=== PATIENT | female | born 2005 | race Caucasian/White ===

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

== ENCOUNTER → 2024-03-16 | Outpatient (CLI) | payer OTHER, SELFPAY ==
[2024-03-16 15:07] LABS: hCG Titer Quant., Serum 43 mIU/mL (1-3)
== END | disposition home or self-care (01) ==
LOC: LAB 14:06
PROVIDERS: PCP Family Medicine; Referring Provider Obstetrics & Gynecology; Visit Provider Obstetrics & Gynecology
DX: O09.299 Supervision of pregnancy with other poor reproductive or obstetric history, unspecified trimester (principal); Z3A.00 Weeks of gestation of pregnancy not specified
CPT/HCPCS: 36415; 84702

== ENCOUNTER → 2024-03-18 | Outpatient (CLI) | payer OTHER, SELFPAY ==
[2024-03-18 15:30] LABS: hCG Titer Quant., Serum 145 mIU/mL (1-3)
== END | disposition home or self-care (01) ==
PROVIDERS: PCP Family Medicine; Referring Provider Obstetrics & Gynecology; Visit Provider Obstetrics & Gynecology
DX: O09.299 Supervision of pregnancy with other poor reproductive or obstetric history, unspecified trimester (principal); Z3A.00 Weeks of gestation of pregnancy not specified
CPT/HCPCS: 36415; 84702

== ENCOUNTER → 2024-03-24 | Outpatient (CLI) | payer OTHER, SELFPAY ==
--- NOTE | 2024-03-24 16:39 | US_ITS ---
INDICATION: viability EXAMINATION: US OB Transvaginal TECHNIQUE: Transvaginal (for optimal evaluation of the adnexa) pelvic ultrasound was performed. Grayscale, spectral waveform, and color flow Doppler evaluation of the adnexa. COMPARISON: None. FINDINGS: UTERUS: Measures 9.6 cm in length.. RIGHT OVARY: Measures 3 x 2.5 x 2.3 cm. Normal. LEFT OVARY: Measures 2.3 x 2.2 x 2.7 cm. Corpus luteal cyst.. FREE FLUID: Minimal. INTRAUTERINE GESTATIONAL SAC(s) (size/shape): Single. Mean sac diameter of 0.5 cm YOLK SAC: Not identified POLE: Not visualized. ESTIMATED GESTATION AGE: 5 weeks and 2 days. US/Transvaginal w/Preg US IMPRESSION: Intrauterine of uncertain viability. There is an intrauterine gestational sac with no yolk sac or embryo. Recommend serial beta hCGs and follow-up OB ultrasound in 1-2 weeks. Electronically Signed: Chuck Taylor MD at 18:20 EDT ,
== END | disposition home or self-care (01) ==
LOC: US 16:34
PROVIDERS: PCP Family Medicine; Referring Provider Obstetrics & Gynecology; Visit Provider Obstetrics & Gynecology
DX: O09.299 Supervision of pregnancy with other poor reproductive or obstetric history, unspecified trimester (principal); Z3A.00 Weeks of gestation of pregnancy not specified
CPT/HCPCS: 76817

== ENCOUNTER → 2024-04-02 | Outpatient (CLI) | payer OTHER, SELFPAY ==
--- NOTE | 2024-04-02 15:26 | US_ITS ---
STUDY: FIRST TRIMESTER OBSTETRICAL ULTRASOUND REASON FOR EXAM: Female, 18 years old viability LMP: TECHNIQUE: Transvaginal TECHNICAL QUALITY: Adequate. PRIOR ULTRASOUND: None. FINDINGS: There is visualization of a single gestational sac in a normal intrauterine position. The mean sac diameter (MSD) measures 1.66 cm, indicating an estimated gestational age (EGA) of 6 weeks, 6 days. The gestational sac shape is within normal limits. There is a visualized yolk sac. The yolk sac measures 3 mm. The placenta is non-visualized. pole is observed.. The crown-rump length (CRL) measures 3 mm, indicating an estimated gestational age (EGA) of 6 weeks, 1 days. According to the technologist note, there is cardiac motion observed in demonstrated with color however the actual cardiac rate could not be obtained. The estimated gestation age (EGA) by LMP is 6 weeks, 6 days. The estimated date of delivery (THOMAS) by LMP is November 20, 2024. The estimated gestation age (EGA) by US is 6 weeks, 6 days. The estimated date of delivery (THOMAS) by US is November 20, 2024. The uterus measures 8.4 x 6.1 x 5.4 cm. There is a very small hypoechoic density seen 10 x 5 x 3 mm possibly representing small subchorionic bleed There is no demonstrated uterine fibroid. The cervix is closed. The right ovary measures 2.2 x 1.9 x 1.7. There is no cystic nodule.. There is no visualized right adnexal mass or complex lesion. The left ovary measures 3.6 x 3.7 x 3.6 cm. There is a cyst measuring 2.9 x 2.5 x 2.1 cm likely corpus luteum. There is no visualized left adnexal mass or complex lesion. There is minimal fluid in the cul de sac. US/Transvaginal w/Preg US IMPRESSION: Early probable viable intrauterine gestation approximately 6 weeks 6 days gestational age however cardiac rate could not be ascertained. Recommend clinical correlation and follow-up studies to confirm viability Small left ovarian cyst likely corpus luteum Electronically Signed: Yoel Trotter MD at 17:11 EDT ,
== END | disposition home or self-care (01) ==
LOC: US 15:23
PROVIDERS: PCP Family Medicine; Referring Provider Obstetrics & Gynecology; Visit Provider Obstetrics & Gynecology
DX: O09.299 Supervision of pregnancy with other poor reproductive or obstetric history, unspecified trimester (principal); Z3A.00 Weeks of gestation of pregnancy not specified
CPT/HCPCS: 76817

== ENCOUNTER → 2024-04-12 | Outpatient (CLI) | payer OTHER, SELFPAY ==
[2024-04-15 06:11] LABS: Chlamydia By Nucleic Acid AMP Negative (Negative); Gonococcus By Nucleic Acid AMP Negative (Negative)
== END | disposition home or self-care (01) ==
LOC: LABSPEC 13:55
PROVIDERS: PCP Family Medicine; Referring Provider Obstetrics & Gynecology; Visit Provider Obstetrics & Gynecology
DX: O24.013 Pre-existing type 1 diabetes mellitus, in pregnancy, third trimester (principal); Z3A.30 30 weeks gestation of pregnancy
CPT/HCPCS: 87086; 87491; 87591

== ENCOUNTER 2024-07-11 15:41 | Emergency (ER) | payer OTHER, SELFPAY ==
[2024-07-11 15:42] VITALS: BP 105/81; PULSE 83; RESP 16; TEMP 36.6; O2SAT 98; BMI 19.8
[2024-07-11 15:59] VITALS: BP 110/74; PULSE 90; RESP 15; O2SAT 98
--- NOTE | 2024-07-11 16:05 | RAD_ITS ---
EXAM: XR LEFT FOOT COMPLETE, 3 OR MORE VIEWS CLINICAL INDICATION: Injury/Pain -- Shield abdomen, positive TECHNIQUE: Frontal, lateral and oblique views of the left foot. COMPARISON: No relevant prior studies available. FINDINGS: BONES/JOINTS: Unremarkable. No acute fracture. No subluxation. Normal alignment. Preservation of the joint space. No sclerotic or destructive changes observed. SOFT TISSUES: Unremarkable. No soft tissue swelling or gas. No radiopaque foreign body. RAD/Foot min 3 Views IMPRESSION: Negative left foot x-rays. Electronically Signed: Jose Montague MD at 17:05 EDT ,
--- NOTE | 2024-07-11 16:05 | ED.VIS.LOWEX ---
HPI History of Present Illness HPI Narrative: Patient presents with injury to her left great toe that occurred 2 days ago. Patient states she accidentally followed something with her left great toe. Patient states the pain has been getting progressively worse. Patient describes the pain as sharp and stabbing. Patient states the pain is worse when anything touches her toe. Patient admits to some tingling over the plantar aspect of her great toe. Patient denies any weakness. Patient denies any other injuries. Chief Complaint: Lower Extremity Injury Informant: patient Occured/Mechanism Mechanism/Context: Yes blunt trauma Onset/Context/Timing Onset: Days (2) Context: Sudden Onset Timing: Continuous Quality of Pain: Sharp and Stabbing Location: Left great toe Worsened by: Palpation Relieved by: Nothing Associated Symptoms Associated Symptoms: Positive for Parasthesia; Negative for Weakness or Loss of Funtion [facility] Medical History Diabetes type I Seasonal allergies Seizure Breast abscess Lump of breast Mastitis Breech presentation Premature rupture of membranes Toxoplasmosis affecting Positive GBS test Supervision of normal first teen POTS (postural orthostatic tachycardia syndrome) Home Medications ?Medication ?Instructions ?Recorded ?Last Taken ?Type PNV 153-FA 400 mcg-om3 35 mg-dha tab PO 04/09/24 Unknown History 25 mg-epa 5 mg-fish oil chew tablet ferrous sulfate 325 mg (65 mg 325 mg PO DAILY 04/09/24 Unknown History iron) tablet (Feosol) Allergy/AdvReac Type Severity Reaction Status Date / Time amoxicillin Allergy Rash Verified 07/11/24 15:44 coconut Allergy Anaphylaxis Verified 07/11/24 15:44 dexmethylphenidate Allergy Itching Verified 07/11/24 15:44 hydrocodone Allergy Rash Verified 07/11/24 15:44 latex Allergy skin Verified 07/11/24 15:44 hayes, headaches onion Allergy Shortness Verified 07/11/24 15:44 of breath vancomycin Allergy Rash Verified 07/11/24 15:44 Anesthetics - Amide Type - AdvReac Severe Anaphylaxis Verified 07/11/24 15:44 Select A (anesthesia) Family History Mother POTS (postural orthostatic tachycardia syndrome) Autism Grandmother Breast cancer Thyroid disorder Skin cancer Sister Autism Son Autism Surgical History H/O laparoscopy Status post delivery Social History adopted: Yes household members: significant other, family and children number of children: 1 current occupational status: employed current occupation: [employer] pets and animals: Yes (Avoid litterbox) pets and animals: cat(s) and dog(s) history of recent travel: No sexually active: Yes Smoking Status: Former smoker quit date: 01/12/24 Electronic Cigarette Use: with nicotine alcohol intake: never substance use type: does not use well-balanced diet: daily or most days caffeine: Yes (not while ) Type: tea Number of servings: 1 eating out: rarely or never what type of physical activity do you participate in: none hayden/orthodoxy: None seatbelt use: always do you feel safe at home: Yes additional social history: BF Rogelio- Outboard Technician ROS ROS ED Constitutional Constitutional ED: Denies chills or fever(s) Eyes Eyes: Denies blurry vision or change in vision ENT ENT ED: Denies rhinorrhea or sore throat Cardiovascular Cardiovascular: Denies chest pain or palpitations Respiratory/Chest Respiratory/Chest: Denies cough or dyspnea Gastrointestinal Gastrointestinal: Denies nausea or vomiting Genitourinary Genitourinary ED: Denies dysuria or hematuria Musculoskeletal Musculoskeletal: Denies back pain or neck pain Integumentary Denies abscess or rash Neurologic Neurologic: Denies headache(s) or weakness Allergic/Immunologic Allergic/Immunologic ED: Denies mouth swelling or urticaria EXAM Physical Exam Const Vital Signs: 07/11/24 15:42 07/11/24 15:55 07/11/24 15:59 Temperature 98 F Temperature Source Temporal Pulse Rate 83 90 Respiratory Rate 16 15 Respiratory Effort Normal Respiratory Pattern Normal Blood Pressure 105/81 H 110/74 Blood Pressure Mean 89 86 Pulse Ox 98 98 Oxygen Delivery Method Room Air Room Air Positive well nourished and well developed General Appearance ED: well developed and NAD HEENT Reports moist mucous membranes Neck full ROM Extremity Extremity Narrative: There is tenderness of the distal phalanx of the left great toe. There are some mild edema and erythema but there is no discharge or drainage noted. There is no loosening of the nail plate. There is no obvious deformity noted. Sensation was intact to light touch in all digits. Capillary refill was less than 2 seconds in all digits. Neuro oriented x3, CN's II-XII intact bilaterally, moves all extremities and no sensory deficits noted Sensorium / Orientation: alert Motor Exam: strength 5/5 throughout Psych mental status grossly normal MDM MDM MDM Narrative Medical decision making narrative: Differential diagnosis includes fracture, contusion, sprain. X-rays of the left foot will be obtained to assess for fracture. Lab Data Labs: Laboratory Results - last 24 hr 07/11/24 07/11/24 15:46 16:19 POC Glucose 54 L 82 Radiography Diagnostic Testing: Clinical Impression(s) from Imaging Studies Foot X-Ray 07/11/24 16:05 IMPRESSION: Negative left foot x-rays. Electronically Signed: Jose Montague MD at 17:05 EDT Reading Location ID and State: [facility] / [place] , Service support , X-rays of the left foot were obtained. There are 3 views. On my independent interpretation, there is no acute fracture or dislocation noted. Radiologist also interpreted the x-rays and agrees. Treatment and Re-Evaluation Narrative: Patient was advised of her findings. Patient was given a postop shoe. Patient was instructed to ice and elevate her left foot. Patient was instructed to take Tylenol as needed for pain. Patient understood and was agreeable with the plan. All questions were answered. Discharge Plan Triage Chief Complaint: Lower Extremity Injury ED Provider: Godwin Hutchinson Dx/Rx/DC Orders Clinical Impression: Contusion of great toe, left, Type 1 diabetes, Instructions: ED Finger or Toe Contusion Prescriptions: No Action PNV no.[id number] 400 mcg-35 mg- 25 mg-5 mg tablet,chewable PO ferrous sulfate [Feosol] 325 mg (65 mg iron) tablet 325 mg PO DAILY Primary Care Provider: Milton Toribio Referrals: Milton Toribio DO [Primary Care Provider] - 5-7 Days Print Language: Macedonian Disposition Disposition: Home, Self Care
[2024-07-11 16:07] LABS: Bedside Glucose 54 mg/dL (74-106)
[2024-07-11 16:38] LABS: Bedside Glucose 82 mg/dL (74-106)
[2024-07-11 17:19] VITALS: BP 96/55; PULSE 78; RESP 21; TEMP 36.8; O2SAT 97
[2024-07-11 17:41] LABS: Bedside Glucose 106 mg/dL (74-106)
== END 2024-07-11 17:26 | disposition home or self-care (01) ==
LOC: ED 16:49
PROVIDERS: Emergency Provider Emergency Medicine; PCP Family Medicine; Visit Provider Emergency Medicine
DX: O9A.219 Injury, poisoning and certain other consequences of external causes complicating pregnancy, unspecified trimester (principal); S90.112A Contusion of left great toe without damage to nail, initial encounter; O24.019 Pre-existing type 1 diabetes mellitus, in pregnancy, unspecified trimester; X58.XXXA Exposure to other specified factors, initial encounter; Z87.891 Personal history of nicotine dependence; Z3A.00 Weeks of gestation of pregnancy not specified
CPT/HCPCS: 73630; 82962; 99284

== ENCOUNTER 2024-08-01 08:45 | Outpatient (CLI) | payer OTHER, SELFPAY ==
[2024-08-01 09:02] VITALS: BP 109/74; PULSE 81; PULSE 87; RESP 16; TEMP 37; O2SAT 99
[2024-08-01 09:13] VITALS: BMI 20.5
[2024-08-01 09:43] LABS: Bacteria 0 SEEN /hpf (None Seen); Mucous, Urine 0 SEEN /hpf (<or=2+); Red Blood Cells-Urine 0 SEEN /hpf (0-5); White Blood Cells 0 SEEN /hpf (0-5)
[2024-08-01 09:44] LABS: Color, Urine Yellow (Yellow); Glucose, Dipstick Normal (Normal); Ketone-Dipstick Negative (Negative); Leukocyte Esterase-Dipstick 25 /ul (Negative); Nitrite-Dipstick Negative (Negative); Occult Blood-Urine 10 /ul (Negative); Protein-Dipstick Negative (Negative); Urine Bilirubin Dipstick Negative (Negative); Urine Clarity Sl. Cloudy (Clear); Urine Urobilinogen Normal (Normal)
[2024-08-01 09:50] LABS: Amorphous Sediment 1+; Squamous Epithelial Cells - UA 10-25 SEEN /hpf (5-10)
--- NOTE | 2024-08-01 11:15 | OB.TRI.HP_ITS ---
HPI - General General Date of Admission: 08/01/24 Date of Service: 08/01/24 Chief Complaint: cramping HPI Narrative JAMIE VAZQUEZ, is a 19 F who presents cramping and pain back. No bleeding or leaking. Did have intercourse in the last 24 hours. After reviewed EPIC chart patient has had ongoing complaints of back pain and cramping. Is a MFM patient in [place]. Cervical length on 07/30 was 36.6 mm. Growth and fluid normal. Occasional contractions on toco. Doppler normal FHR. Maternal Data Information THOMAS Calculator Estimated Delivery Date Method Current WG Current Estimate 11/20/24 Ultrasound #1 24w 1d Final THOMAS: 11/20/24 Gestational age: 24+1 PFSH [facility] Medical History Diabetes type I Seasonal allergies Seizure Breast abscess Lump of breast Mastitis Breech presentation Premature rupture of membranes Toxoplasmosis affecting Positive GBS test Supervision of normal first teen POTS (postural orthostatic tachycardia syndrome) Home Medications ?Medication ?Instructions ?Recorded ?Last Taken ?Type PNV 153-FA 400 mcg-om3 35 mg-dha 1 tab PO DAILY 04/09/24 Unknown History 25 mg-epa 5 mg-fish oil chew tablet ferrous sulfate 325 mg (65 mg 325 mg PO DAILY 04/09/24 Unknown History iron) tablet (Feosol) Allergy/AdvReac Type Severity Reaction Status Date / Time amoxicillin Allergy Rash Verified 08/01/24 09:13 coconut Allergy Anaphylaxis Verified 08/01/24 09:13 dexmethylphenidate Allergy Itching Verified 08/01/24 09:13 hydrocodone Allergy Rash Verified 08/01/24 09:13 latex Allergy skin Verified 08/01/24 09:13 hayes, headaches onion Allergy Shortness Verified 08/01/24 09:13 of breath vancomycin Allergy Rash Verified 08/01/24 09:13 Anesthetics - Amide Type - AdvReac Severe Anaphylaxis Verified 08/01/24 09:13 Select A (anesthesia) Family History Mother POTS (postural orthostatic tachycardia syndrome) Autism Grandmother Breast cancer Thyroid disorder Skin cancer Sister Autism Son Autism Surgical History H/O laparoscopy Status post delivery Social History adopted: Yes household members: significant other, family and children number of children: 1 current occupational status: employed current occupation: [employer] pets and animals: Yes (Avoid litterbox) pets and animals: cat(s) and dog(s) history of recent travel: No sexually active: Yes Smoking Status: Former smoker quit date: 01/12/24 Electronic Cigarette Use: with nicotine alcohol intake: never substance use type: does not use well-balanced diet: daily or most days caffeine: Yes (not while ) Type: tea Number of servings: 1 eating out: rarely or never what type of physical activity do you participate in: none hayden/scientology: None seatbelt use: always do you feel safe at home: Yes additional social history: BF [employer] Coach History 10 Elective abortions Hx Para 1 Spontaneous abortions 8 Hx # Term Pregnancies Ectopic pregnancies Hx # Pregnancies Multiple births # of living children 1 Past Pregnancies Del. Date Name GA/Weeks Outcome Route Bth Weight Gen Labor Lgth Anesthesia Del Locatn Provider FOB 06/14/22 Kyson 31 live - 3lbs 14oz Male [facility] Landon Nicolas Delivery Date: 06/14/22 Last Updated by: Luz Garsia emergency section 31 wk breech, SROM Visit Details OB Flowsheet Initial Weight: Not Recorded Date -?-?-?-?-?-?-?-?-?-?-?-?- EGA Weight BP Urine Prot -?-?-?-?-?-?-?-?-?-?-?-?- Glucose FHR FuHt Pres Dilation -?-?-?-?-?-?-?-?-?-?-?-?- Effaced St Visit Note 04/12/24 -?-?-?-?-?-?-?-?-?-?-?-?- 8w 2d 57.663 kg 110/75 -?-?-?-?-?-?-?-?-?-?-?-?- 151 -?-?-?-?-?-?-?-?-?-?-?-?- JV- CRL measures 7 weeks 2 days. heart tones present. GS present and normal yolk sac. declines NIPT. will refer to [facility] for delivery and management due to multple medical problems including rare heart condition. Physical Exam Const alert, oriented x3 and no apparent distress General Appearance: cooperative and comfortable HEENT normocephalic and head/scalp atraumatic Eyes PERRL and EOMs intact bilaterally Resp normal respiratory effort Bimanual Exam - Vag & Uterus: Negative for uterus tender Manual OB Exam: No dilated, No effaced, No station and other closed think hi firm Extremity normal to inspection Neuro oriented x3 Assessment & Plan (1) Hx of delivery, currently : (2) 24 weeks gestation of : (3) Low back pain during : QUALIFIERS: Trimester: second trimester Qualified Code(s): O26.892 - Other specified related conditions, second trimester; M54.50 - Low back pain, unspecified PLAN: Plan normal urine, cervix closed. Encouraged to f/u with primary OB
== END 2024-08-01 11:20 | disposition home or self-care (01) ==
LOC: WPOUT 08:53 → WP 08:53
PROVIDERS: PCP Family Medicine; Visit Provider Obstetrics & Gynecology
DX: O99.891 Other specified diseases and conditions complicating pregnancy (principal); R25.2 Cramp and spasm; Z87.891 Personal history of nicotine dependence; Z3A.24 24 weeks gestation of pregnancy
CPT/HCPCS: 59025; 59050; 81001; 99221; G0378

== ENCOUNTER 2024-09-12 16:20 | Outpatient (CLI) | payer OTHER, SELFPAY ==
[2024-09-12 17:07] VITALS: BP 99/61; PULSE 96; RESP 14; TEMP 36.7; O2SAT 97
[2024-09-12 17:16] VITALS: BMI 21.6
--- NOTE | 2024-09-12 17:29 | EKG12_ITS ---
Test Reason : CP Blood Pressure : */* mmHG Vent. Rate : 85 BPM Atrial Rate : 85 BPM P-R Int : 124 ms QRS Dur : 100 ms QT Int : 366 ms P-R-T Axes : 55 21 31 degrees QTcB Int : 435 ms Normal sinus rhythm RSR' or QR pattern in V1 suggests right ventricular conduction delay Borderline ECG When compared with ECG of 09-Jun-2023 00:44, No significant change was found Confirmed by Jesus Manuel Self ([id number]), editor at large KELLEY SEYMOUR ([id number]) on 09/14/2024 9:26:48 AM Referred By: Akiko Bowling Confirmed By: Jesus Manuel Self
[2024-09-12 17:31] LABS: Fetal Fibronectin Negative; Record Kit Lot#, fFN A4033
--- NOTE | 2024-09-18 07:07 | OB.TRI.NOTE ---
HPI - General General Date of Service: 09/12/24 HPI Narrative JAMIE VAZQUEZ, is a 19 F who presents at 30w1d with complaints of contractions. [facility] Medical History (Updated 09/14/24 @ 08:50 by Kristi Guadarrama, SCOTT) Low back pain during Diabetes type I Seasonal allergies Seizure Breast abscess Lump of breast Mastitis Breech presentation Premature rupture of membranes Toxoplasmosis affecting Positive GBS test Supervision of normal first teen POTS (postural orthostatic tachycardia syndrome) Home Medications ?Medication ?Instructions ?Recorded ?Last Taken ?Type PNV 153-FA 400 mcg-om3 35 mg-dha 1 tab PO DAILY 04/09/24 Unknown History 25 mg-epa 5 mg-fish oil chew tablet ferrous sulfate 325 mg (65 mg 325 mg PO DAILY 04/09/24 Unknown History iron) tablet (Feosol) Allergy/AdvReac Type Severity Reaction Status Date / Time amoxicillin Allergy Rash Verified 09/12/24 20:16 coconut Allergy Anaphylaxis Verified 09/12/24 20:16 dexmethylphenidate Allergy Itching Verified 09/12/24 20:16 hydrocodone Allergy Rash Verified 09/12/24 20:16 latex Allergy skin Verified 09/12/24 20:16 hayes, headaches onion Allergy Shortness Verified 09/12/24 20:16 of breath vancomycin Allergy Rash Verified 09/12/24 20:16 Anesthetics - Amide Type - AdvReac Severe Anaphylaxis Verified 09/12/24 20:16 Select A (anesthesia) Family History Mother POTS (postural orthostatic tachycardia syndrome) Autism Grandmother Breast cancer Thyroid disorder Skin cancer Sister Autism Son Autism Surgical History H/O laparoscopy Status post delivery Social History adopted: Yes household members: significant other, family and children number of children: 1 current occupational status: employed current occupation: [employer] pets and animals: Yes (Avoid litterbox) pets and animals: cat(s) and dog(s) history of recent travel: No sexually active: Yes Smoking Status: Former smoker quit date: 01/12/24 Electronic Cigarette Use: with nicotine alcohol intake: never substance use type: does not use well-balanced diet: daily or most days caffeine: Yes (not while ) Type: tea Number of servings: 1 eating out: rarely or never what type of physical activity do you participate in: none hayden/advent: None seatbelt use: always do you feel safe at home: Yes additional social history: BF Rogeilo- Seed Analysis 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 Date Name GA/Weeks Outcome Route Bth Weight Infant Gen Labor Lgth Anesthesia Del Locatn Provider FOB 06/14/22 Alice 31 live - 3lbs 14oz Male [facility] Landon Nicolas Delivery Date: 06/14/22 Last Updated by: Luz Garsia emergency section 31 wk breech, SROM NST FHR Rate Baby A Baseline: 130 Variability:: Moderate Accelerations:: 15 x 15 Decelerations:: Variable NST Reactive:: Yes Uterine Activity:: Irritability Assessment & Plan (1) Hx of section: (2) Seizure disorder: (3) Type 1 diabetes: COMMENT: unsure this is correct. pt states that since she was 8 years old she was given the diagnosis of type 1 dm but does not take insulin. pt unabl to answer questions. ddx; type 2 dm or diabetes insipidus. She will sign a ror. (4) Autism: (5) Brugada syndrome: COMMENT: gets q 6 month echos at [facility]. referring to [facility] (6) Former smoker: COMMENT: Quit in January 2024 (7) Cardiomyopathy: PLAN: Plan 1) Uterine irritability, FFN sent and negative, no signs of PTL 2) Having some chest pressure and EKG completed 3) present on unit and asked to evaluate patient, seen at bedside and ok for D/C home 4) For chest pain, to go to ED if continues.
== END 2024-09-12 20:20 | disposition home or self-care (01) ==
LOC: WPOUT 16:28 → WP 16:29
PROVIDERS: PCP Family Medicine; Referring Provider Advanced Practice Midwife; Visit Provider Advanced Practice Midwife
DX: O26.893 Other specified pregnancy related conditions, third trimester (principal); G40.909 Epilepsy, unspecified, not intractable, without status epilepticus; R07.89 Other chest pain; O34.219 Maternal care for unspecified type scar from previous cesarean delivery; O99.353 Diseases of the nervous system complicating pregnancy, third trimester; O24.313 Unspecified pre-existing diabetes mellitus in pregnancy, third trimester; O99.413 Diseases of the circulatory system complicating pregnancy, third trimester; I49.8 Other specified cardiac arrhythmias; Z3A.30 30 weeks gestation of pregnancy; Z87.891 Personal history of nicotine dependence
CPT/HCPCS: 59025; 59050; 82731; 93005; 99221; G0378

== ENCOUNTER 2024-11-29 19:33 | Emergency (ER) | payer OTHER, MEDICAID, SELFPAY ==
[2024-11-29 19:34] VITALS: BP 112/82; PULSE 86; RESP 18; TEMP 36.2; O2SAT 100; BMI 19.9
--- NOTE | 2024-11-29 20:30 | ED.VIS.DENTA ---
HPI History of Present Illness Chief Complaint: Dental Informant: patient and parent Narrative Narrative: 19-year-old female presenting to the emergency room with dental pain and swelling. Patient states that yesterday she began to have some dental pain. She states that now she has developed some swelling over the medial aspect of the tooth that is pushing on her tongue. She has an appointment with her dentist. She notes significant medical history. She is allergic to amoxicillin and vancomycin. [facility] Medical History Low back pain during Diabetes type I Seasonal allergies Seizure Breast abscess Lump of breast Mastitis Breech presentation Premature rupture of membranes Toxoplasmosis affecting Positive GBS test Supervision of normal first teen POTS (postural orthostatic tachycardia syndrome) Home Medications ?Medication ?Instructions ?Recorded ?Last Taken ?Type PNV 153-FA 400 mcg-om3 35 mg-dha 1 tab PO DAILY 04/09/24 Unknown History 25 mg-epa 5 mg-fish oil chew tablet clindamycin HCl 300 mg capsule 300 mg PO Q6H #40 CAPSULES 11/29/24 Unknown Rx (Cleocin HCl) norethindrone (contraceptive) 0.35 0.35 mg PO DAILY 11/29/24 Unknown History mg tablet (Jencycla) oxycodone-acetaminophen 5 mg-325 1 tab PO Q6H PRN PRN Pain 3 days 11/29/24 Unknown Rx mg tablet #12 TABLETS Allergy/AdvReac Type Severity Reaction Status Date / Time amoxicillin Allergy Rash Verified 11/29/24 19:34 coconut Allergy Anaphylaxis Verified 11/29/24 19:34 dexmethylphenidate Allergy Itching Verified 11/29/24 19:34 hydrocodone Allergy Rash Verified 11/29/24 19:34 latex Allergy skin Verified 11/29/24 19:34 hayes, headaches onion Allergy Shortness Verified 11/29/24 19:34 of breath vancomycin Allergy Rash Verified 11/29/24 19:34 Anesthetics - Amide Type - AdvReac Severe Anaphylaxis Verified 11/29/24 19:34 Select A (anesthesia) Family History Mother POTS (postural orthostatic tachycardia syndrome) Autism Grandmother Breast cancer Thyroid disorder Skin cancer Sister Autism Son Autism Surgical History H/O laparoscopy Status post delivery Social History adopted: Yes household members: significant other, family and children number of children: 1 current occupational status: employed current occupation: [employer] pets and animals: Yes (Avoid litterbox) pets and animals: cat(s) and dog(s) history of recent travel: No sexually active: Yes Smoking Status: Former smoker quit date: 01/12/24 Electronic Cigarette Use: with nicotine alcohol intake: never substance use type: does not use well-balanced diet: daily or most days caffeine: Yes (not while ) Type: tea Number of servings: 1 eating out: rarely or never what type of physical activity do you participate in: none hayden/rastafarian: None seatbelt use: always do you feel safe at home: Yes additional social history: BF Rogelio- Autism Teacher ROS ROS ED Constitutional Constitutional ED: Denies chills, fever(s) or weight loss Eyes Eyes: Denies change in vision or diplopia ENT ENT ED: Reports other Details: See history of present illness ; Denies ear pain, rhinorrhea or sore throat Cardiovascular Cardiovascular: Denies chest pain, orthopnea, palpitations or racing heartbeat Respiratory/Chest Respiratory/Chest: Denies cough, dyspnea or orthopnea Gastrointestinal Gastrointestinal: Denies abdominal pain, diarrhea, nausea or vomiting Genitourinary Genitourinary ED: Denies dysuria, hematuria or urinary frequency Musculoskeletal Musculoskeletal: Denies arthralgias or myalgias Integumentary Denies abscess or rash Neurologic Neurologic: Denies headache(s) or weakness Psychiatric Psychiatric: Denies anxiety, depression, suicidal ideation or suicidal thoughts Endocrine Endocrinology: Denies polydipsia, polyphagia or polyuria Allergic/Immunologic Allergic/Immunologic ED: Denies mouth swelling, tongue swelling or urticaria EXAM Physical Exam Const Vital Signs: 11/29/24 19:34 Temperature 97.1 F L Temperature Source Temporal Pulse Rate 86 Respiratory Rate 18 Blood Pressure 112/82 H Blood Pressure Mean 92 Pulse Ox 100 Oxygen Delivery Method Room Air Positive well nourished and well developed General Appearance ED: well developed and NAD HEENT Reports normocephalic, head/scalp atraumatic and moist mucous membranes HEENT Narrative: The right lower posterior most molar is significantly decayed with loss of the back half of the tooth. There is focal gum swelling medially that is pointing. The floor the mouth however is soft and nonedematous. Eyes PERRL and EOMs intact bilaterally Neck no lymphadenopathy, supple and no JVD Resp normal respiratory effort and clear to auscultation bilaterally Cardio regular rate, regular rhythm and no murmurs GI normal to inspection, nondistended, normoactive bowel sounds and non-tender Palpation: soft Back/Spine no CVA tenderness and normal ROM Extremity normal to inspection General Extremety ED: Negative for edema General Extremity: Negative for edema Neuro oriented x3 and CN's II-XII intact bilaterally Sensorium / Orientation: alert Motor Exam: strength 5/5 throughout Psych mental status grossly normal Mood & Affect: Negative for depressed or tearful Skin no rashes or lesions noted and no wounds MDM MDM MDM Narrative Medical decision making narrative: Differential diagnosis includes but not limited to dental abscess Hernandez's angina dental caries gingivitis Patient is going to need to be started on clindamycin. We talked about performing incision and drainage. A 25-gauge needle was used to make a quick slit in the gumline with expression of a large amount of pus. We are able to fully express the abscess and when I last viewed it it was flattened to the gumline. Patient is still spitting some minimal blood and pus. I can write for a few Percocet. I would recommend following up with the dentist tomorrow. Return if worsening or concerns History & Record Review Discussion w/independent historian: Patient and Family Discharge Plan Triage Chief Complaint: Dental ED Provider: Wagner Frias Dx/Rx/DC Orders Clinical Impression: Abscess, dental, Pain, dental Instructions: ED Dental Abscess Prescriptions: New clindamycin HCl [Cleocin HCl] 300 mg capsule 300 mg PO Q6H Qty: 40 0RF oxycodone-acetaminophen 5-325 mg tablet 1 tab PO Q6H PRN PRN (Reason: Pain) 3 Days Qty: 12 0RF No Action PNV no.[id number] 400 mcg-35 mg- 25 mg-5 mg tablet,chewable 1 tab PO DAILY norethindrone (contraceptive) [Jencycla] 0.35 mg tablet 0.35 mg PO DAILY Primary Care Provider: Milton Toribio Referrals: Milton Toribio, [Primary Care Provider] - Activity Restrictions/Additional Instructions: Please follow-up with your dentist as scheduled tomorrow Print Language: Welsh Disposition Disposition: Home, Self Care
== END 2024-11-29 21:13 | disposition home or self-care (01) ==
PROVIDERS: Emergency Provider Emergency Medicine; PCP Family Medicine; Visit Provider Emergency Medicine
DX: K04.7 Periapical abscess without sinus (principal); E10.9 Type 1 diabetes mellitus without complications; K02.9 Dental caries, unspecified; K08.89 Other specified disorders of teeth and supporting structures; Z88.0 Allergy status to penicillin; Z88.1 Allergy status to other antibiotic agents; Z87.891 Personal history of nicotine dependence
CPT/HCPCS: 41800; 99282

== ENCOUNTER 2025-02-10 23:28 | Emergency (ER) | payer OTHER, MEDICAID, SELFPAY ==
--- NOTE | 2025-02-10 00:30 | RAD_ITS ---
EXAM: Foot minimum three views CLINICAL HISTORY: Pain COMPARISON: None available TECHNIQUE: Three views left foot FINDINGS: Acute nondisplaced intra-articular small fracture at the medial side of the 1st proximal phalanx at the metacarpophalangeal joint without significant displacement. No dislocation. Mild forefoot soft tissue swelling. RAD/Foot min 3 Views IMPRESSION: Acute nondisplaced intra-articular small fracture at the medial side of the 1st proximal phalanx at the metacarpophalangeal joint without significant displacement. No dislocation. Reading Location: [id number]
[2025-02-10 23:29] VITALS: BP 107/69; PULSE 99; RESP 18; TEMP 36.4; O2SAT 99; BMI 17.3
--- NOTE | 2025-02-11 00:27 | EDS_ITS ---
HPI History of Present Illness Chief Complaint: Lower Extremity Injury Informant: patient Narrative Narrative: Patient is a 19-year-old female with past medical history of POTS and diabetes. She states around 8 PM she was at [employer] and she was warming up doing a tumbling routine and struck her left foot against a brick wall. She states she was simply in socks and did not have shoes on brain type of protection. She states she was able to finish out [employer] but has noticed pain and swelling mainly of the right great toe and with concern for potential foot fracture comes in for evaluation. [facility] Medical History Low back pain during Diabetes type I Seasonal allergies Seizure Breast abscess Lump of breast Mastitis Breech presentation Premature rupture of membranes Toxoplasmosis affecting Positive GBS test Supervision of normal first teen POTS (postural orthostatic tachycardia syndrome) Home Medications ?Medication ?Instructions ?Recorded ?Last Taken ?Type PNV 153-[id number] 400 mcg-om3 35 mg-dha 1 tab PO DAILY pregna ncy 04/09/24 Unknown History 25 mg-epa 5 mg-fish oil chew tablet clindamycin HCl 300 mg capsule 300 mg PO Q6H #40 CAPSU LES 11/29/24 Unknown Rx (Cleocin HCl) norethindrone (contraceptive) 0.35 0.35 mg PO DAILY Unknown History mg tablet (Jencycla) oxycodone-acetaminophen 5 mg-325 1 tab PO Q6H PRN PRN Pain 3 days 11/29/24 Unknown Rx mg tablet #12 TABLETS Allergy/AdvReac Type Severity Reaction Status Date / Time amoxicillin Allergy Rash Verified 02/10/25 23:28 coconut Allergy Anaphylaxis Verified 02/10/25 23:28 dexmethylphenidate Allergy Itching Verified 02/10/25 23:28 hydrocodone Allergy Rash Verified 02/10/25 23:28 latex Allergy skin Verified 02/10/25 23:28 hayes, headaches onion Allergy Shortness Verified 02/10/25 23:28 of breath vancomycin Allergy Rash Verified 02/10/25 23:28 Anesthetics - Amide Type - AdvReac Severe Anaphylaxis Verified 02/10/25 23:28 Select A (anesthesia) Family History Mother POTS (postural orthostatic tachycardia syndrome) Autism Grandmother Breast cancer Thyroid disorder Skin cancer Sister Autism Son Autism Surgical History H/O laparoscopy Status post delivery Social History adopted: Yes household members: significant other, family and children number of children: 1 current occupational status: employed current occupation: [employer] pets and animals: Yes (Avoid litterbox) pets and animals: cat(s) and dog(s) history of recent travel: No sexually active: Yes Smoking Status: Former smoker quit date: 01/12/24 Electronic Cigarette Use: with nicotine alcohol intake: never substance use type: does not use well-balanced diet: daily or most days caffeine: Yes (not while ) Type: tea Number of servings: 1 eating out: rarely or never what type of physical activity do you participate in: none hayden/congregational: None seatbelt use: always do you feel safe at home: Yes additional social history: BF [employer]- 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 ROS ROS ED Constitutional Constitutional ED: Denies chills or fever(s) ENT ENT ED: Denies sore throat Cardiovascular Cardiovascular: Denies chest pain Respiratory/Chest Respiratory/Chest: Denies cough or dyspnea Gastrointestinal Gastrointestinal: Denies abdominal pain, diarrhea, nausea or vomiting Genitourinary Genitourinary ED: Denies dysuria Musculoskeletal Musculoskeletal: Reports other Details: Positive left foot pain Integumentary Reports other Details: Positive left foot bruising and swelling Neurologic Neurologic: Denies headache(s) or paresthesias Hematologic/Lymphatic Hematologic/Lymphatic: Denies easy bleeding or easy bruising EXAM Physical Exam Const Vital Signs: 02/10/25 23:29 02/11/25 01:33 Temperature 97.6 F L 97.6 F L Temperature Source Oral Pulse Rate 99 87 Respiratory Rate 18 18 Blood Pressure 107/69 110/68 Blood Pressure Mean 81 82 Pulse Ox 99 99 Oxygen Delivery Method Room Air Positive well nourished and well developed General Appearance ED: well developed HEENT HEENT Narrative: Normocephalic atraumatic Eyes PERRL and EOMs intact bilaterally Neck supple Resp normal respiratory effort and clear to auscultation bilaterally Cardio regular rate and regular rhythm Extremity Extremity Narrative: Left lower extremity is neurovascularly intact. Patient has soft tissue swelling with ecchymosis to the dorsal aspect of the left foot at the first MTP. There is no obvious bony deformity or joint effusion. No ligamentous laxity or tendon injury noted. Achilles tendon is intact. Ankle ligaments are stable. No subungual hematoma noted. Remainder of the exam is normal Neuro oriented x3, CN's II-XII intact bilaterally and no sensory deficits noted Sensorium / Orientation: alert Motor Exam: strength 5/5 throughout Psych mental status grossly normal Skin Skin Narrative: Positive soft tissue swelling with ecchymosis to the first MTP on the left foot as documented above MDM MDM MDM Narrative Medical decision making narrative: Patient arrived to the ER with stable vitals. She reported mechanical injury to her left foot roughly 3 to 4 hours prior to arrival. Exam does show swelling and ecchymosis concerning for contusion versus fracture. She does not have signs of ligamentous or tendon injury by exam. There is no obvious signs of subungual hematoma or nailbed laceration. Therefore I felt only need for an x- ray of the left foot at this time. X-ray did show a nondisplaced fracture of the first proximal phalanx. At this time the fracture is closed and she is neurovascularly intact and there are no signs of compartment syndrome therefore there is no need for intervention/emergent podiatry consultation. The patient was placed in a walking boot for stabilization and is otherwise safe for discharge. History & Record Review Discussion w/independent historian: Patient Radiography Diagnostic Testing: Clinical Impression(s) from Imaging Studies Foot X-Ray 02/10/25 00:30 IMPRESSION: Acute nondisplaced intra-articular small fracture at the medial side of the 1st proximal phalanx at the metacarpophalangeal joint without significant displacement. No dislocation. Reading Location: [id number] X-ray of the left foot as interpreted by the emergency medicine physician reveals a small fracture along the medial side of the base of the first proximal phalanx Discharge Plan Triage Chief Complaint: Lower Extremity Injury ED Provider: Matthias Lemos Dx/Rx/DC Orders Clinical Impression: Closed fracture of left great toe, Seizure disorder, Depression, Brugada syndrome Instructions: ED Fracture, Foot Prescriptions: No Action PNV no.[id number] 400 mcg-35 mg- 25 mg-5 mg tablet,chewable 1 tab PO DAILY norethindrone (contraceptive) [Jencycla] 0.35 mg tablet 0.35 mg PO DAILY clindamycin HCl [Cleocin HCl] 300 mg capsule 300 mg PO Q6H Qty: 40 0RF oxycodone-acetaminophen 5-325 mg tablet 1 tab PO Q6H PRN PRN (Reason: Pain) 3 Days Qty: 12 0RF Stand Alone Forms: ED Work / School Excuse Primary Care Provider: Milton Toribio Referrals: Wagner Mendez DPM [Med Staff - Active Staff] - (Foot fracture) Milton Toribio DO [Primary Care Provider] - Activity Restrictions/Additional Instructions: Please wear your walking boot for stabilization of your fracture. Follow-up w [facility] podiatry to discuss further testing or treatment options. Return to the ER should you have any further concerns Print Language: [place] Disposition Disposition: Home, Self Care Discharge Date/Time: 02/11/25 01:34
[2025-02-11 01:33] VITALS: BP 110/68; PULSE 87; RESP 18; TEMP 36.4; O2SAT 99
== END 2025-02-11 01:34 | disposition home or self-care (01) ==
PROVIDERS: Emergency Provider Emergency Medicine; PCP Family Medicine; Visit Provider Emergency Medicine
DX: S92.415A Nondisplaced fracture of proximal phalanx of left great toe, initial encounter for closed fracture (principal); G40.909 Epilepsy, unspecified, not intractable, without status epilepticus; E10.9 Type 1 diabetes mellitus without complications; W22.01XA Walked into wall, initial encounter; Y93.45 Activity, cheerleading; I49.8 Other specified cardiac arrhythmias; G90.A Postural orthostatic tachycardia syndrome [POTS]; F32.A Depression, unspecified; Z87.891 Personal history of nicotine dependence
CPT/HCPCS: 73630; 99283

== ENCOUNTER 2025-03-24 23:52 | Emergency (ER) | payer OTHER, MEDICAID, SELFPAY ==
[2025-03-24 23:53] VITALS: BP 115/82; PULSE 98; RESP 16; TEMP 36.9; O2SAT 98; BMI 18.8
--- NOTE | 2025-03-25 00:55 | RAD_ITS ---
PROCEDURE: FOOT MIN 3 VIEWS 03/25/2025 REASON FOR EXAM: PAIN TECHNIQUE: 3 views of the right foot. FINDINGS: No fracture or dislocation. The joint spaces appear within limits. Soft tissues appear within limits. RAD/Foot min 3 Views IMPRESSION: No fracture or dislocation. Reading Location: [id number]
--- NOTE | 2025-03-25 00:55 | RAD_ITS ---
PROCEDURE: ANKLE MIN 3 VIEWS 03/25/2025 REASON FOR EXAM: PAIN TECHNIQUE: 3 views of the right ankle COMPARISON: None available FINDINGS: No fracture or dislocation. The joint spaces appear within limits. The soft tissues appear within limits. RAD/Ankle min 3 Views IMPRESSION: No fracture or dislocation. If symptoms persist, may follow-up with repeat vaishnavi ging in 7-10 days as warranted. Reading Location: [id number]
--- NOTE | 2025-03-25 01:28 | EX.ED.DYSGE1 ---
HPI History of Present Illness Chief Complaint: Lower Extremity Injury Informant: patient Narrative Narrative: Patient is a 19-year-old female with past medical history of depression and seizure disorder. She states she was at gymnastics this evening and was doing a backhand spring into a full flip and states she was landing in the pit. She states she placed a mat in there to help with the landing. She states as she went to complete the movement with the flip she got scared and shorted of the landing. She states that she landed more on the top of her right foot and this caused her to roll her ankle. She states she has had pain with ambulation since that time. As she was recently seen for a left foot injury and had a fracture she is concerned for that and therefore comes in for evaluation [facility] Medical History Low back pain during Diabetes type I Seasonal allergies Seizure Breast abscess Lump of breast Mastitis Breech presentation Premature rupture of membranes Toxoplasmosis affecting Positive GBS test Supervision of normal first teen POTS (postural orthostatic tachycardia syndrome) Home Medications ?Medication ?Instructions ?Recorded ?Last Taken ?Type norethindrone (contraceptive) 0.35 0.35 mg PO DAILY 11/29/24 Unknown History mg tablet (Jencycla) Allergy/AdvReac Type Severity Reaction Status Date / Time amoxicillin Allergy Rash Verified 03/24/25 23:57 coconut Allergy Anaphylaxis Verified 03/24/25 23:57 dexmethylphenidate Allergy Itching Verified 03/24/25 23:57 hydrocodone Allergy Rash Verified 03/24/25 23:57 latex Allergy skin Verified 03/24/25 23:57 hayes, headaches onion Allergy Shortness Verified 03/24/25 23:57 of breath vancomycin Allergy Rash Verified 03/24/25 23:57 Anesthetics - Amide Type - AdvReac Severe Anaphylaxis Verified 03/24/25 23:57 Select A (anesthesia) Family History Mother POTS (postural orthostatic tachycardia syndrome) Autism Grandmother Breast cancer Thyroid disorder Skin cancer Sister Autism Son Autism Surgical History H/O laparoscopy Status post delivery Social History adopted: Yes household members: significant other, family and children number of children: 1 current occupational status: employed current occupation: [employer] pets and animals: Yes (Avoid litterbox) pets and animals: cat(s) and dog(s) history of recent travel: No sexually active: Yes Smoking Status: Former smoker quit date: 01/12/24 Electronic Cigarette Use: with nicotine alcohol intake: never substance use type: does not use well-balanced diet: daily or most days caffeine: Yes (not while ) Type: tea Number of servings: 1 eating out: rarely or never what type of physical activity do you participate in: none hayden/jainism: None seatbelt use: always do you feel safe at home: Yes additional 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 history: BF [employer]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 ROS ROS ED Constitutional Constitutional ED: Denies chills or fever(s) ENT ENT ED: Denies sore throat Cardiovascular Cardiovascular: Denies chest pain Respiratory/Chest Respiratory/Chest: Denies cough or dyspnea Gastrointestinal Gastrointestinal: Denies abdominal pain, diarrhea, nausea or vomiting Genitourinary Genitourinary ED: Denies dysuria Musculoskeletal Musculoskeletal: Reports other Details: Positive right foot and ankle pain Integumentary Denies Abrasions or rash Neurologic Neurologic: Denies headache(s), paresthesias or weakness Hematologic/Lymphatic Hematologic/Lymphatic: Denies easy bleeding or easy bruising EXAM Physical Exam Const Vital Signs: 03/24/25 23:53 03/25/25 01:36 Temperature 98.5 F 98.5 F Temperature Source Oral Pulse Rate 98 92 Respiratory Rate 16 16 Blood Pressure 115/82 H 115/82 H Blood Pressure Mean 93 93 Pulse Ox 98 98 Oxygen Delivery Method Room Air Positive well nourished and well developed General Appearance ED: well developed; Negative for pallor HEENT HEENT Narrative: Normocephalic atraumatic Eyes PERRL and EOMs intact bilaterally Neck supple Resp normal respiratory effort and clear to auscultation bilaterally Cardio regular rate and regular rhythm Extremity Extremity Narrative: Right lower extremity is neurovascularly intact. No obvious bony deformity or joint effusion. Achilles tendon is intact and ankle ligaments are stable. There is pain with palpation near the lateral malleolus and with palpation of the heel. Compartments are soft and compressible going against compartment syndrome No subungual hematoma noted Remainder of the exam is normal Neuro oriented x3, CN's II-XII intact bilaterally and no sensory deficits noted Sensorium / Orientation: alert Psych mental status grossly normal Skin no rashes or lesions noted and no wounds General Skin Exam: Negative for jaundice or pallor MDM MDM MDM Narrative Medical decision making narrative: Patient arrived to the ER with stable vitals and reported mechanical injury to her right foot/ankle. Differential diagnosis is for ankle sprain versus fracture versus foot contusion. Secondary to this and x-ray of the foot and ankle were obtained. Imaging studies revealed no acute finding. By exam she does not have a ligamentous or tendon tear. Therefore there is no need for emergent orthopedic consultation or splinting. Patient was instructed on symptomatic care but is otherwise safe for discharge as workup does not reveal fracture dislocation ligamentous or tendon injury. History & Record Review Discussion w/independent historian: Patient Radiography Diagnostic Testing: Clinical Impression(s) from Imaging Studies Ankle X-Ray 03/25/25 00:55 IMPRESSION: No fracture or dislocation. If symptoms persist, may follow-up with repeat imaging in 7-10 days as warranted. Reading Location: [facility] Foot X-Ray 03/25/25 00:55 IMPRESSION: No fracture or dislocation. Reading Location: [facility] Right ankle x-ray as interpreted by the emergency medicine physician reveals no acute fracture dislocation or joint effusion Right foot x-ray as interpreted by the emergency medicine physician reveals no acute fracture or dislocation Discharge Plan Triage Chief Complaint: Lower Extremity Injury ED Provider: Matthias Lemos Dx/Rx/DC Orders Clinical Impression: Contusion of foot, right, Right ankle sprain, Depression, Seizure disorder Instructions: ED Foot Contusion, ED Ankle Sprain (Adult) Prescriptions: No Action norethindrone (contraceptive) [Jencycla] 0.35 mg tablet 0.35 mg PO DAILY Primary Care Provider: Milton Toribio Referrals: Milton Toribio DO [Primary Care Provider] - Activity Restrictions/Additional Instructions: Your x-ray revealed no fracture or dislocation and your exam does not display any signs of ligamentous damage. Continue with Tylenol and/or Motrin for pain control and ice the area to help reduce pain and swelling. Return to the ER should you have any further concerns. It would typically take 7 to 10 days for your symptoms to improve. Print Language: Uruguayan Disposition Disposition: Home, Self Care Discharge Date/Time: 03/25/25 01:37
[2025-03-25 01:36] VITALS: BP 115/82; PULSE 92; RESP 16; TEMP 36.9; O2SAT 98
== END 2025-03-25 01:37 | disposition home or self-care (01) ==
PROVIDERS: Emergency Provider Emergency Medicine; PCP Family Medicine; Visit Provider Emergency Medicine
DX: S93.401A Sprain of unspecified ligament of right ankle, initial encounter (principal); G40.909 Epilepsy, unspecified, not intractable, without status epilepticus; E10.9 Type 1 diabetes mellitus without complications; S90.31XA Contusion of right foot, initial encounter; X50.1XXA Overexertion from prolonged static or awkward postures, initial encounter; Y93.43 Activity, gymnastics; F32.A Depression, unspecified; Z87.891 Personal history of nicotine dependence
CPT/HCPCS: 73610; 73630; 99282

== ENCOUNTER 2025-05-10 13:14 | Emergency (ER) | payer OTHER, MEDICAID, SELFPAY ==
[2025-05-10 13:14] VITALS: BP 120/78; PULSE 58; RESP 14; TEMP 36.6; O2SAT 98; BMI 18.6
--- NOTE | 2025-05-10 13:32 | EX.ED.DYSGE1 ---
HPI History of Present Illness Chief Complaint: General Illness Detail of Chief Complaint: Electrical accident at work. Currently no complaints or symptoms. Informant: patient Onset/Context/Timing Onset: Today and Hours Context: Sudden Onset Current Severity: Gone Maximum Severity: Mild Narrative Narrative: 19-year-old female states that she works at [employer]. She was unplugging a mixer and believes she may have got shocked on her right hand. This occurred at 930 this morning about 4 hours ago. Currently she has no complaints. She went to an urgent care they sent her to the emergency department. Currently she is symptom-free. Prior similar symptoms: No Recent Illness/Hospitalization: No PFSH PFSH Medical History Low back pain during Diabetes type I Seasonal allergies Seizure Breast abscess Lump of breast Mastitis Breech presentation Premature rupture of membranes Toxoplasmosis affecting Positive GBS test Supervision of normal first teen POTS (postural orthostatic tachycardia syndrome) Home Medications ?Medication ?Instructions ?Recorded ?Last Taken ?Type norethindrone (contraceptive) 0.35 0.35 mg PO DAILY 11/29/24 Unknown History mg tablet (Jencycla) Allergy/AdvReac Type Severity Reaction Status Date / Time amoxicillin Allergy Rash Verified 05/10/25 13:15 coconut Allergy Anaphylaxis Verified 05/10/25 13:15 dexmethylphenidate Allergy Itching Verified 05/10/25 13:15 hydrocodone Allergy Rash Verified 05/10/25 13:15 latex Allergy skin Verified 05/10/25 13:15 hayes, headaches onion Allergy Shortness Verified 05/10/25 13:15 of breath vancomycin Allergy Rash Verified 05/10/25 13:15 Anesthetics - Amide Type - AdvReac Severe Anaphylaxis Verified 05/10/25 13:15 Select A (anesthesia) Family History Mother POTS (postural orthostatic tachycardia syndrome) Autism Grandmother Breast cancer Thyroid disorder Skin cancer Sister Autism Son Autism Surgical History H/O laparoscopy Status post delivery Social History adopted: Yes household members: significant other, family and children number of children: 1 current occupational status: employed current occupation: [employer] pets and animals: Yes (Avoid litterbox) pets and animals: cat(s) and dog(s) history of recent travel: No sexually active: Yes Smoking Status: Former smoker quit date: 01/12/24 Electronic Cigarette Use: with nicotine alcohol intake: never substance use type: does not use well-balanced diet: daily or most days caffeine: Yes (not while ) Type: tea Number of servings: 1 eating out: rarely or never what type of physical activity do you participate in: none hayden/mormon: None seatbelt use: always do you feel safe at home: Yes additional 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 Denies any complaints currently. Constitutional Constitutional ED: Denies chills or fever(s) Eyes Eyes: Denies blurry vision ENT ENT ED: Denies ear pain Cardiovascular Cardiovascular: Denies chest pain Respiratory/Chest Respiratory/Chest: Denies cough or dyspnea Gastrointestinal Gastrointestinal: Denies abdominal pain Genitourinary Genitourinary ED: Denies dysuria or hematuria Musculoskeletal Musculoskeletal: Denies arthralgias or back pain Integumentary Denies abscess or Abrasions Neurologic Neurologic: Denies headache(s) Psychiatric Psychiatric: Denies anxiety or depression Endocrine Endocrinology: Denies cold intolerance Hematologic/Lymphatic Hematologic/Lymphatic: Reports none Allergic/Immunologic Allergic/Immunologic ED: Denies mouth swelling, tongue swelling or urticaria EXAM Physical Exam Narrative Exam Narrative: Well-appearing 19-year-old female. Vital signs stable afebrile. No acute distress. H EENT exam pupils round reactive light. Moist mucous membranes. Posterior pharynx unremarkable. Neck nontender. No lymphadenopathy. Lungs clear to auscultation. Heart regular rhythm rate about 60 no murmur. Chest wall and ribs nontender. Abdomen soft nontender. Moving all 4 extremities. Nontender no edema. Right hand specifically there is no signs of burn florentin or any trauma. There is no redness. Normal range of motion. No swelling. Other extremities nontender normal range of motion. No edema. Back nontender. Neurologically patient awake alert. Answer questions following commands. Very benign exam. Const Vital Signs: 05/10/25 13:14 Temperature 98 F Temperature Source Temporal Pulse Rate 58 L Respiratory Rate 14 Blood Pressure 120/78 Blood Pressure Mean 92 Pulse Ox 98 Oxygen Delivery Method Room Air Positive well nourished and well developed; Negative for obese, cachectic, contractures or unkempt General Appearance ED: well developed and NAD; Negative for unkempt, cachectic, contractures, cyanotic, diaphoretic or pallor Nutritional Appearance: Negative for cachectic or obese HEENT Reports moist mucous membranes Negative for trauma Eyes PERRL and EOMs intact bilaterally Neck no lymphadenopathy, supple and no JVD General: Negative for tenderness Chest Wall inspection of chest normal and palpation of chest normal Resp normal respiratory effort and clear to auscultation bilaterally Effort and Inspection: Negative for retractions Auscultation: Negative for rales, rhonchi, wheezes or diminished lung sounds Cardio regular rate, regular rhythm, S1 normal heart sound, S2 normal heart sound and no murmurs GI normal to inspection, nondistended, normoactive bowel sounds, non-tender, non-distended and no masses Palpation: soft; Negative for tender, guarding or rebound tenderness present Back/Spine no CVA tenderness General Back: Negative for CVA tenderness Cervical Spine: Negative for cervical spine tenderness Extremity normal to inspection Neuro oriented x3, CN's II-XII intact bilaterally and no sensory deficits noted Sensorium / Orientation: alert; Negative for orientation impaired or lethargic Motor Exam: strength 5/5 throughout Psych mental status grossly normal Appearance: Negative for unkempt Skin no rashes or lesions noted, no wounds and skin turgor normal General Skin Exam: elasticity normal; Negative for jaundice or pallor Lesions: No lesion noted Rashes: No rashes noted Trauma: Negative for abrasion Wounds: Negative for wounds noted Discharge Plan Triage Chief Complaint: General Illness ED Provider: Max Young Dx/Rx/DC Orders Clinical Impression: Electrocution Instructions: ED Electrical Injury Prescriptions: No Action norethindrone (contraceptive) [Jencycla] 0.35 mg tablet 0.35 mg PO DAILY Primary Care Provider: Florentin Toribio Referrals: [facility] [Group of Physicians] - As Needed Florentin Toribio DO [Primary Care Provider] - As Needed Activity Restrictions/Additional Instructions: Motrin or Tylenol for any pain. Follow-up as needed. May return to work with normal work activities. Print Language: Slovenian Disposition Disposition: Home, Self Care
[2025-05-10 14:26] VITALS: BP 120/78; PULSE 58; RESP 14; TEMP 36.6; O2SAT 98
== END 2025-05-10 14:28 | disposition home or self-care (01) ==
PROVIDERS: Emergency Provider Emergency Medicine; PCP Family Medicine; Visit Provider Emergency Medicine
DX: T75.4XXA Electrocution, initial encounter (principal); E10.9 Type 1 diabetes mellitus without complications; W86.1XXA Exposure to industrial wiring, appliances and electrical machinery, initial encounter; Y99.0 Civilian activity done for income or pay; Y92.511 Restaurant or cafe as the place of occurrence of the external cause; Z87.891 Personal history of nicotine dependence
CPT/HCPCS: 99282

== ENCOUNTER 2025-06-25 00:53 | Emergency (ER) | payer OTHER, SELFPAY ==
[2025-06-25 00:54] VITALS: BP 122/80; PULSE 69; RESP 16; TEMP 36.5; O2SAT 99; BMI 19.0
--- NOTE | 2025-06-25 01:26 | EX.ED.DYSGE1 ---
HPI History of Present Illness Chief Complaint: Foreign Body Informant: patient Narrative Narrative: 27-year-old female has had pain in the left ear where her piercings are for about the past 3 weeks. She has 2 piercings and that that she is unable to get out because of pain. No purulent drainage. She feels like one of the piercings, the rubber backing may be stuck within the ear tissue itself. She denies any fevers or systemic symptoms. [facility] Medical History Low back pain during Diabetes type I Seasonal allergies Seizure Breast abscess Lump of breast Mastitis Breech presentation Premature rupture of membranes Toxoplasmosis affecting Positive GBS test Supervision of normal first teen POTS (postural orthostatic tachycardia syndrome) Home Medications ?Medication ?Instructions ?Recorded ?Last Taken ?Type norethindrone (contraceptive) 0.35 0.35 mg PO DAILY 11/29/24 Unknown History mg tablet (Jencycla) mupirocin 2 % topical ointment 1 applic topical BID PRN skin 06/25/25 Unknown Rx infection #15 grams sumatriptan succinate 50 mg tablet mg PO 06/25/25 Unknown History Allergy/AdvReac Type Severity Reaction Status Date / Time amoxicillin Allergy Rash Verified 05/10/25 13:15 coconut Allergy Anaphylaxis Verified 05/10/25 13:15 dexmethylphenidate Allergy Itching Verified 05/10/25 13:15 hydrocodone Allergy Rash Verified 05/10/25 13:15 latex Allergy skin Verified 05/10/25 13:15 hayes, headaches onion Allergy Shortness Verified 05/10/25 13:15 of breath vancomycin Allergy Rash Verified 05/10/25 13:15 Anesthetics - Amide Type - AdvReac Severe Anaphylaxis Verified 05/10/25 13:15 Select A (anesthesia) Family History Mother POTS (postural orthostatic tachycardia syndrome) Autism Grandmother Breast cancer Thyroid disorder Skin cancer Sister Autism Son Autism Surgical History H/O laparoscopy Status post delivery Social History adopted: Yes household members: significant other, family and children number of children: 1 current occupational status: employed current occupation: [employer] pets and animals: Yes (Avoid litterbox) pets and animals: cat(s) and dog(s) history of recent travel: No sexually active: Yes Smoking Status: Former smoker quit date: 01/12/24 Electronic Cigarette Use: with nicotine alcohol intake: never substance use type: does not use well-balanced diet: daily or most days caffeine: Yes (not while ) Type: tea Number of servings: 1 eating out: rarely or never what type of physical activity do you participate in: none hayden/pentecostal: None seatbelt use: always do you feel safe at home: Yes additional social history: BF Rogelio- Program Admin ROS ROS ED Constitutional Constitutional ED: Denies chills or fever(s) ENT ENT ED: Reports ear pain left; Denies abnormal hearing, rhinorrhea or sore throat Gastrointestinal Gastrointestinal: Denies nausea or vomiting Integumentary Reports other Details: Left ear redness where piercings are Neurologic Neurologic: Denies headache(s), paresthesias or weakness EXAM Physical Exam Const Vital Signs: 06/25/25 00:54 06/25/25 00:58 Temperature 97.7 F L Temperature Source Oral Pulse Rate 69 Respiratory Rate 16 Respiratory Effort Normal Non-Labored Respiratory Pattern Normal Blood Pressure 122/80 H Blood Pressure Mean 94 Pulse Ox 99 Oxygen Delivery Method Room Air Positive well nourished and well developed General Appearance ED: well developed and NAD HEENT Reports moist mucous membranes HEENT Narrative: Outer left ear soft tissue redness where there are 2 piercings present, very tender to manipulate there is no fluctuance or mass or active discharge. The backing on the caudal 1 is present patient is unable to remove it just due to the pain, it is easily obtainable and visible. The backing on the cranial 1 is not visible and there is a little more swelling along the shaft of the ear ring in that area. MDM MDM MDM Narrative Medical decision making narrative: I had nurses put a topical LET gel on the piercings to try to at least partially locally anesthetize it. I had discussed with her doing a couple different options, 1 is not injecting anything else and just seeing if the LET would make it easier for us to get the piercings out, the other is injecting lidocaine locally at the piercings, and the other is an ear/periauricular block. On reevaluation after letting the gel sit for 30 minutes, the patient removed her own piercings and states that she got the backing out of the ear using a technique that I had described I was going to use. There is no active discharge just a small amount of blood whenever she dabs it. I do not think she needs systemic antibiotics just topicals, going to have nurses place a dressing on it and clean it and I will give her a prescription for Bactroban. Discharge Plan Triage Chief Complaint: Foreign Body ED Provider: Dajuan Gonzalez Dx/Rx/DC Orders Clinical Impression: Infection of left pierced ear Instructions: ED Pierced Ear Infection Prescriptions: New mupirocin 2 % ointment 1 applic topical BID PRN (Reason: skin infection) Qty: 15 0RF No Action norethindrone (contraceptive) [Jencycla] 0.35 mg tablet 0.35 mg PO DAILY sumatriptan succinate 50 mg tablet PO Primary Care Provider: Milton Toribio Referrals: Milton Toribio, DO [Primary Care Provider] - Activity Restrictions/Additional Instructions: Try to leave piercings out and let this heal. If you choose to put a piercing in to keep the hole from closing, make sure you sterilize it with rubbing alcohol every time and put a light layer of the prescription antibiotic ointment on before insertion, and leave it out at night until healed. Print Language: Kazakh Disposition Disposition: Home, Self Care
[2025-06-25] MEDS: Lidocaine/Epi/Tetracaine 50 ML 1 APPLIC TOPICAL (01:35)
--- OUTSIDE RECORDS SUMMARY | 2025-06-25 01:48 | XMS RPT_ITS | CCD ---
Author Organization [facility] Care Team Providers Care Construction Director Name Role Phone DR CONNOR MARTINI DO Primary Care Physician Dr. Connor Martini Primary Care Provider ADALGISA Wade NP Attending Provider Dr. Connor Martini Referring Provider [phone] Etelvina Calderon Attending Provider [phone] Dr. Marina Valero Attending Provider HAKEEM Mujica Attending Provider Dr. Connor Martini Primary Care Provider Dr. Connor Martini Referring Provider ADALGISA Wade NP Attending Provider Dr. Marina Valero Referring Provider Dr. Marina Valero Other Provider [phone] Dr. Connor Martini Primary Care Provider Dr. Connor Martini Referring Provider Dr. Marina Valero Attending Provider ADALGISA Wade NP Attending Provider [phone] Dr. Connor Martini Primary Care Provider Dr. Connor Martini Referring Provider [phone] Etelvina Calderon Attending Provider [phone] Dr. Etelvina Calderon Admit Provider Dr. Etelvina Calderon Other Provider Dr. Connor Martini Primary Care Provider Viin, Dr. Howe Referring Provider Dr. Marina Valero Attending Provider Vini, Dr. Howe Primary Care Provider Dr. Connor Martini Referring Provider Chester FORENSIC MEDICAL EXAMINER, FORENSIC MEDICAL EXAMINER-C Gi Attending Provider Dr. Marina Valero Attending Provider Dr. Marina Valero Other Provider Connor Martini DO Primary Care Provider Vini, Dr. Howe Primary Care Provider Vini, Dr. Howe Referring Provider [phone] Mauro FORENSIC MEDICAL EXAMINER, FORENSIC MEDICAL EXAMINER-C Gi Attending Provider [phone] MD Amilcar Wiggins Emergency Provider Dr. Wagner Conte Other Provider Dr. Connor Martini Primary Care Provider Dr. Marina Valero Attending Provider Dr. Filippo Vanegas Attending Provider Dr. Etelvina Calderon Referring Provider [phone] Vini, Dr. Howe Primary Care Provider Dr. Connor Martini Referring Provider Mauro FORENSIC MEDICAL EXAMINER, FORENSIC MEDICAL EXAMINER-C Gi Attending Provider [phone] Dr. Etelvina Calderon Attending Provider MD Amilcar Wiggins Emergency Provider Dr. Etelvina Calderon Admit Provider Dr. Etelvina Calderon Other Provider Dr. Wagner Conte Other Provider Dr. Filippo Vanegas Attending Provider Dr. Etelvina Calderon Referring Provider [phone] Dr. Marina Valero Attending Provider [phone] VINI GUO, DR CONNOR Lira Primary Care Physician Vini, Dr. Howe Primary Care Provider [phone] Vini, Dr. Howe Referring Provider [phone] Vini, Dr. Howe Primary Care Provider [phone] Etelvina Calderon Attending Provider [phone] Vini, Dr. Howe Referring Provider [phone] Vini DO, Connor Lira Primary Care Provider [phone] VINI, CONNOR Lira Primary Care Unavailable NAHUN LEACH Attending Unavailable Dr. Florentin Toribio Primary Care Provider [phone] Dr. Florentin Toribio Referring Provider Dr. Etelvina Calderon Attending Provider [phone] Dr. Florentin Toribio Primary Care Provider [phone] Dr. Florentin Toribio Referring Provider Dr. Etelvina Calderon Attending Provider [phone] Vini DO, Connor A Primary Care Provider [phone] Joseys, Connor A Primary Care Provider CHANDRAKANT SOUZA, DR LR Attending Unavailabl e VINI GUO, DR CONNOR Lira Primary Care Unavailable YULIYA SOUZA, DR ELLYN Casey Attending Porter MARTINI DO, DR CONNOR Lira Primary Care Unavailable VINI, CONNOR Primary Care Unavailable RANDAL RIVERA JR Attending Unavailab CONNOR Jones Primary Care Unavailable FAINAAKIKO GREENE Admitting Unavailable AKIKO MEDINA Attending Unavailable CONNOR MARTINI Primary Care Unavailable RADHA BORRERO Referring Unavailable MICAKIKO MIGUEL Attending Unavailable MELVERNEETA Attending Unavailable MELVERNEETA Referring Unavailable MALYS, CONNOR A Primary Care Unavailable RIKA OSORIO Attending Unavailable MALYS, CONNOR A Primary Care Unavailable MALYS, CONNOR A Referring Unavailable VICTORINO ALAMO Attending Unavailable MALYS, CONNOR A Primary Care Unavailable MALYS, CONNOR A Referring Unavailable MALYS, CONNOR A Primary Care Unavailable VICTORINO ALAMO Attending Unavailable REFERRED, SELF Referring Unavailable ETELVINA HAYES Referring Unavailab MARIE Rinaldi Attending Unavailable DOC, MISC Primary Care Unavailable MELVER, NEETA Attending Unavailable MALYS, CONNOR A Primary Care Unavailable MALYS, CONNOR A Referring Unavailable Spaluh RN, Moy Unavailable Unavailable Chantal RN, Moy Unavailable Unavailable MALYS, CONNOR A Primary Care Unavailable RAHEEM VINCENT Attending Unavailable MALYS, CONNOR A Primary Care Unavailable RADHA BORRERO Attending Unavailable MALYS, CONNOR A Primary Care Unavailable CONNOR DODSON Attending Unavailable MALYS, CONNOR A Primary Care Unavailable ALEJANDRINA WALL Referring Unavailable MALYS, CONNOR A Primary Care Unavailable YORK, JOSE A D Attending Unavailable LOU MARIN Attending Unavailable MALYS, CONNOR A Primary Care Unavailable CAMILLA DUNHAM Admitting Unavailable DADA LOCKETT Attending Unavailable Dr. Florentin Toribio DO Primary Care Provider Dr. Wagner Frias DO Attending Provider [phone] Wagner Frias DO Emergency Provider Dr. Matthias Lemos DO Emergency Provider Dr. Matthias Lemos DO Attending Provider Dr. Florentin Toribio DO Primary Care Provider Dr. Max Young MD Emergency Provider MALYS, CONNOR A Primary Care Unavailable MARCH, JOSE A Attending Unavailable MARCH, JOSE A Admitting Unavailable MALYS, CONNOR A Primary Care Unavailable DOLIN, PRAVEEN Admitting Unavailable MALYS, CONNOR A Primary Care Unavailable PURA LOYA Attending Unavailable MALYS, CONNOR A Primary Care Unavailable MONTY RIVERA Attending Unavailable MALYS, CONNOR A Primary Care Unavailable PICCIOTTO, PRITI Attending Unavailable MALYS, CONNOR A Primary Care Unavailable PICCIOTTO, PRITI Attending Unavailable SHANK, ANTHONY Referring Unavailable MALYS, CONNOR A Primary Care Unavailable MALYS, CONNOR A Primary Care Unavailable SHANK, ANTHONY Attending Unavailable MALYS, CONNOR A Primary Care Unavailable SHANK, ANTHONY Attending Unavailable MALYS, CONNOR A Primary Care Unavailable SHANK, ANTHONY Attending Unavailable JANUARY, JOSE A Referring Unavailable MALYS, CONNOR A Primary Care Unavailable MALYS, CONNOR A Primary Care Unavailable HOANG, SCOTT Attending Unavailable MALYS, CONNOR A Primary Care Unavailable WMLYNNETTE Attending Unavailable MALYS, CONNOR A Primary Care Unavailable JANUARY, JOSE A Referring Unavailable MALYS, CONNOR A Primary Care Unavailable SHANK, ANTHONY Attending Unavailable MALYS, CONNOR A Primary Care Unavailable MICCIO, AKIKO Referring Unavailable MALYS, CONNOR A Primary Care Unavailable MALSHE, ASHELY Referring Unavailable MALYS, CONNOR A Primary Care Unavailable PICCIOTTO, PRITI Attending Unavailable MALYS, CONNOR A Primary Care Unavailable MALYS, CONNOR A Primary Care Unavailable ETELVINA MATOS Attending Unavailab le CHE, ETELVINA POWELL Admitting Unavailab le CLIFFORDPKMARIE Admitting Unavailable MALYS, CONNOR A Primary Care Unavailable MILES, PANKAJ Attending Unavailable MALYS, CONNOR A Primary Care Unavailable JANUARY, JOSE A Referring Unavailable MALYS, CONNOR A Primary Care Unavailable MEENU ALVAREZ Attending Unavailable JANUARY, JOSE A Admitting Unavailable MALYS, CONNOR A Primary Care Unavailable MILES, PANKAJ Attending Unavailable MILES, PANKAJ Admitting Unavailable MALYS, CONNOR A Primary Care Unavailable ZUPONCIC, TATIANA Attending Unavailable ZUPONCIC, TATIANA Admitting Unavailable MALYS, CONNOR A Primary Care Unavailable ETELVINA MATOS Attending Unavailab le SAVITSKI, ETELVINA POWELL Admitting Unavailab le MALYS, CONNOR A Primary Care Unavailable JANUARY, JOSE A Attending Unavailable CLIFFORD, MARIE Admitting Unavailable MALYS, CONNOR A Primary Care Unavailable JANUARY, JOSE A Attending Unavailable DEREK, VASHTI M Admitting Unavailable MALYS, CONNOR A Primary Care Unavailable MILDRED PETIT Attending Unavailabl e PETITMILDRED DASILVA Admitting Unavailabl displacement. No dislocation. Mild forefoot soft tissue swelling. RAD/Foot min 3 Views IMPRESSION: Acute nondisplaced intra-articular small fracture at the medial side of the 1st proximal phalanx at the metacarpophalangeal joint without significant displacement. No dislocation. Reading Location: [id number] CC: Dr. Florentin Toribio DO; Matthias Lemos DO Engineering Job Titles: Signed Normal [facility] CNOVon 01-13-2025 CNOV Office Visit (BRCRMN ) -------- ROSY DOMINIQUE ([id number]) 3 F Date Time Provider Department 01/13/25 1:00 PM [facility] During your visit today, we recorded the following information about you: Weight Height Last Period 54.4 kg 1.753 m 12/19/24 Dori Johnson PA-C 01/13/2025 2:26 PM Signed MEDICAL BREAST PATIENT NAME: Rosy Dominique REFERRAL: She is self referred for an opinion regarding right breast pain. HISTORY of PRESENT ILLNESS: Rosy Dominique is a 19 year old premenopausal female who presents to the [facility] today for evaluation of breast pain. The patient denies any breast masses, skin changes, or nipple discharge. She has a history of a right breast surgical IANDD for an abscess in [address] Conte. Since then, she has chronic pain within the region of her prior scar. She was referred to the breast center by Dr. Conte a couple years ago but she became and did not yet follow up. She currently denies any new masses, skin changes, fever/chills. She has regular menstrual cycles with OCP. She consumes 2 cups of iced tea 4 x weekly. No results found for: VITD25 She takes no supplements. BMD: No PERSONAL BREAST HISTORY: Breast biopsy: No Breast cysts: No Breast surgery: 2021 right IANDD for abscess Breast cancer: No CANCER SURVEILLANCE: Mammograms: No Breast MRI: No Colonoscopy: No RISK FACTORS FOR BREAST CANCER: Age at the onset of menses: 12 years of age. P: 2 Age at the of first child: Not stated. She breast fed. Age at menopause: Not applicable. She has an intact uterus and ovaries Patient's last menstrual period was 12/19/2024. She uses OCP for control. History of Mantle Radiation prior to the age of 29: No BMI: Body mass index is 17.72 kg/m?. Current weight 120 lbs Mammographic density: Unknown Personal History of Benign Atypical Breast Biopsy: No Alcohol use: Never PAST MEDICAL HISTORY Diagnosis Date Brugada syndrome Chronic daily headache Complication of anesthesia Diabetes, gestational POTS (postural orthostatic tachycardia syndrome) Seizure (HCC) Thyroid disease Trauma PAST MEDICAL HISTORY: Patient specifically denies history of: DVT, PE, migraine headaches WITH AURA, migraine headaches without aura, abnormal uterine bleeding, abnormal uterine biopsies, osteopenia, and osteoporosis. SOCIAL HISTORY: Social History Tobacco Use Smoking status: Never Passive exposure: Yes Smokeless tobacco: Never Tobacco comments: vape Vaping Use Vaping status: Former Substances: Nicotine Substance Use Topics Alcohol use: No Drug use: Never Caffeine intake: 2 cups of iced tea 4 x weekly Exercise: Never Family History Adopted: Yes Problem Relation Age of Onset None Mother Ovarian cancer Mother 20 Cervical Cancer Mother 20 Autism Mother None Father Autism Sister Autism Brother Blood Clots Maternal Aunt Breast Cancer Maternal Grandmother 48 Skin Cancer Maternal Grandmother Thyroid Maternal Grandmother Skin Cancer Maternal Grandfather Heart Attack Maternal Grandfather Diabetes Paternal Grandfather FAMILY HISTORY: Family history of breast cancer: MGM (age 48) Family history of ovarian cancer: Her mother had cervical and (? ovarian cancer) in her 20's during . She is currently living. This history is unclear/unconfirmed and patient states she was adopted at age 15 but still has touch with her mother and MGM. Number of sisters: 7 Number of maternal aunts: 2 Number of paternal aunts: unknown Ashkenazi Ancestry: no Other Cancer: MGM - skin cancer (age not stated). MGF - skin cancer (age not stated). There is no family history of prostate, colon, uterine, pancreatic, gastric, brain, renal cell or thyroid cancer. There is no family history of melanoma, sarcoma or leukemia. Osteoporosis: None Stroke: MGF (age 50's-60's) Blood Clot: Maternal aunt Heart attack: MGF (age 50's-60's) Thyroid Nodule or Goiter: MGM Autism: Mother and sister REVIEW OF SYSTEMS: The patient specifically denies unintentional weight loss, insomnia, hot flashes, night sweats, abnormal swelling in the arms or legs, chest pain, shortness of breath, persistent cough, heartburn, urinary incontinence, vaginal dryness, decreased libido, or unusual bony pains. PHYSICAL EXAM: Ht 175.3 cm (5' 9) Wt 54.4 kg (120 lb) LMP 12/19/2024 BMI 17.72 kg/m? General: well-nourished, healthy, female, alert and oriented x 3, calm Skin: warm, dry, skin color, texture, turgor normal Head/Eyes: normocephalic, atraumatic, and anicteric Breasts and Regional Lymph Nodes: The patient was examined in the upright and supine positions. There is no concerning supraclavicular, infraclavicular or axillary lymphadenopathy. The breasts are asymmetrical (L > R which (more content not included)... Normal [facility] 01-12-2025 [facility] -------- ROSY DOMINIQUE ([id number]) 3 F Date Time Provider Department 01/12/25 [facility] During your visit today, we recorded the following information about you: Maris Redd MA 01/12/2025 2:57 PM Signed Attempted to reach out to patient regarding her appointment on 01/13/25. She does not have imaging scheduled for tomorrow. I was hoping to get more information about her breast concerns. Left a message for her to call the office back. MULUGETA Mcfarland Cheryl R, MA 01/13/2025 10:42 AM Signed Patient returned my phone call. She is coming to the breast center for breast pain.. In 2021 she had a very bad rt breast abscess and surgery on that area. Since then she has been suffering with rt breast pain. She had a a rt breast US in 07/2023 which showed a stable irregular benign lesion. She has a maternal Aunt who had breast ca in her 40's. Reminded her of date and time. Maris Redd MA Allergies As of Date: 01/12/2025 Noted Allergy Reaction AMOXICILLIN 08/18/2022 2 - Rash 8 - GI Upset 16 - Unknown ANESTHETICS - AMIDE TYPE - SELECT*04/12/2024 14 - Other: See Comments BUPIVACAINE 08/23/2022 12 - Shortness of Breath CHLOROPROCAINE 08/23/2022 12 - Shortness of Breath COCONUT 06/14/2022 10 - Anaphylaxis 16 - Unknown DEXAMETHASONE 12/08/2022 9 - Itching HYDROCODONE 08/18/2022 9 - Itching 16 - Unknown LATEX 12/19/2021 14 - Other: See Comments 16 - Unknown LIDOCAINE 08/23/2022 12 - Shortness of Breath ONION EXTRACT 04/12/2024 14 - Other: See Comments VANCOMYCIN 08/20/2022 2 - Rash 14 - Other: See Comments VICODIN (HYDROCODONE-ACETAMINOPH E*08/18/2022 2 - Rash Date Reviewed: 11/18/2024 Reviewed by: Arpit Arteaga MA - Fully Assessed Reason for Visit: Appointment [[id number]] [employer] Floorperson - Other [[id number]] Prescriptions as of 01/13/2025 - Norethindrone, Contraceptive, 0.35 mg tablet Take 1 tablet by mouth once daily. - gabapentin (NEURONTIN) 300 mg capsule Take 1 capsule by mouth three times a day for 90 days. - vit calc,iron,folic (PRENAT.VITS,ANISH,MIN-IRO N-FOLIC ORAL) Take by mouth once daily. 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*04/07/2024 04/26/2024 Threatened labor, antepartum [O47.00] 04/28/2022 06/24/2024 Seizure (HCC) [R56.9] 07/24/2023 Premature rupture of membranes [O42.90] 08/16/2022 04/26/2024 Palpitations [R00.2] 06/13/2023 05/26/2024 Cardiomyopathy (HCC) [I42.9] 04/07/2024 04/26/2024 Breech presentation [O32.1XX0] 08/16/2022 04/26/2024 Arthralgia of temporomandibular joint [M26.629] 04/30/2023 05/26/2024 Supervision of high risk in third tri*04/07/2024 10/21/2024 History of delivery, currently *04/07/2024 10/21/2024 with uncertain viability [O36.8*04/07/2024 04/26/2024 History of prior with small for gesta*04/07/2024 05/26/2024 History of [Z98.891] 04/07/2024 History of toxoplasmosis [Z86.19] 04/07/2024 05/26/2024 Antepartum diabetes mellitus [O24.919] 04/07/2024 04/26/2024 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] 04/07/2024 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] 04/07/2024 M-Power Referred [O99.891] 04/08/2024 Abdominal pain affecting [O26.899, R1*04/15/2024 09/15/2024 Headache in , second trimester [O26.89*05/24/2024 09/15/2024 Dizziness [R42] 05/24/2024 Hx of impaired glucose tolerance [Z87.898] 05/26/2024 Previous baby with growth restriction [Z8*06/24/2024 POTS (postural orthostatic tachycardia syndrome*06/24/2024 Abdominal cramping [R10.9] 07/01/2024 08/22/2024 Decreased movements in second trimester [*07/28/2024 08/22/2024 Vaginal bleeding in , second trimester*07/29/2024 08/22/2024 Encounter for suspected premature rupture of am*08/17/2024 09/13/2024 27 weeks gestation of [Z3A.27] 08/22/2024 08/31/2024 Pelvic pain affecting [O26.899, R10.2]08/22/2024 10/03/2024 30 weeks gestation of [Z3A.30] 09/13/2024 10/03/2024 History of delivery [Z87.51] 09/14/2024 Vaginal bleeding in , third trimester *09/14/2024 10/03/2024 contractions [O47.00] 09/15/2024 10/03/2024 Prematurity [P07.30] 09/15/2024 10/06/2024 Hx of antibiotic allergy [Z88.1] 09/15/2024 10/21/2024 History of MRSA infection [Z86.14] 09/15/2024 Intact amniotic membranes during in t*09/17/2024 10/21/2024 Bacterial vaginosis in [O23.599, B96.*09/21/2024 10/21/2024 Vaginal bleeding during [O46.90] 09/21/2024 10/03/2024 33 weeks gestation of [Z3A.33] 10/03/2024 10/06/2024 premature rupture of membranes (PPROM) (more content not included)... Normal [facility] CNPCristin 12-07-2024 [facility] Tele[facility] ([facility]) -------- ROSY DOMINIQUE ([id number]) 3 F Date Time Provider Department 12/07/24 ANTHONY COOK During your visit today, we recorded the following information about you: Fe Payan RN 12/07/2024 11:28 AM Signed Forms received from [facility] [employer], information completed and faxed to [phone] with successful transmission Allergies As of Date: 12/07/2024 Noted Allergy Reaction AMOXICILLIN 08/18/2022 2 - Rash 8 - GI Upset 16 - Unknown ANESTHETICS - AMIDE TYPE - SELECT*04/12/2024 14 - Other: See Comments BUPIVACAINE 08/23/2022 12 - Shortness of Breath CHLOROPROCAINE 08/23/2022 12 - Shortness of Breath COCONUT 06/14/2022 10 - Anaphylaxis 16 - Unknown DEXAMETHASONE 12/08/2022 9 - Itching HYDROCODONE 08/18/2022 9 - Itching 16 - Unknown LATEX 12/19/2021 14 - Other: See Comments 16 - Unknown LIDOCAINE 08/23/2022 12 - Shortness of Breath ONION EXTRACT 04/12/2024 14 - Other: See Comments VANCOMYCIN 08/20/2022 2 - Rash 14 - Other: See Comments VICODIN (HYDROCODONE-ACETAMINOPH E*08/18/2022 2 - Rash Date Reviewed: 11/18/2024 Reviewed by: Arpit Arteaga MA - Fully Assessed Reason for Visit: Patient Question [8207] Prescriptions as of 12/07/2024 - Norethindrone, Contraceptive, 0.35 mg tablet Take 1 tablet by mouth once daily. - gabapentin (NEURONTIN) 300 mg capsule Take 1 capsule by mouth three times a day for 90 days. - vit calc,iron,folic (PRENAT.VITS,ANISH,MIN-IRO N-FOLIC ORAL) Take by mouth once daily. 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*04/07/2024 04/26/2024 Threatened labor, antepartum [O47.00] 04/28/2022 06/24/2024 Seizure (HCC) [R56.9] 07/24/2023 Premature rupture of membranes [O42.90] 08/16/2022 04/26/2024 Palpitations [R00.2] 06/13/2023 05/26/2024 Cardiomyopathy (HCC) [I42.9] 04/07/2024 04/26/2024 Breech presentation [O32.1XX0] 08/16/2022 04/26/2024 Arthralgia of temporomandibular joint [M26.629] 04/30/2023 05/26/2024 Supervision of high risk in third tri*04/07/2024 10/21/2024 History of delivery, currently *04/07/2024 10/21/2024 with uncertain viability [O36.8*04/07/2024 04/26/2024 History of prior with small for gesta*04/07/2024 05/26/2024 History of [Z98.891] 04/07/2024 History of toxoplasmosis [Z86.19] 04/07/2024 05/26/2024 Antepartum diabetes mellitus [O24.919] 04/07/2024 04/26/2024 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] 04/07/2024 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] 04/07/2024 M-Power Referred [O99.891] 04/08/2024 Abdominal pain affecting [O26.899, R1*04/15/2024 09/15/2024 Headache in , second trimester [O26.89*05/24/2024 09/15/2024 Dizziness [R42] 05/24/2024 Hx of impaired glucose tolerance [Z87.898] 05/26/2024 Previous baby with growth restriction [Z8*06/24/2024 POTS (postural orthostatic tachycardia syndrome*06/24/2024 Abdominal cramping [R10.9] 07/01/2024 08/22/2024 Decreased movements in second trimester [*07/28/2024 08/22/2024 Vaginal bleeding in , second trimester*07/29/2024 08/22/2024 Encounter for suspected premature rupture of am*08/17/2024 09/13/2024 27 weeks gestation of [Z3A.27] 08/22/2024 08/31/2024 Pelvic pain affecting [O26.899, R10.2]08/22/2024 10/03/2024 30 weeks gestation of [Z3A.30] 09/13/2024 10/03/2024 History of delivery [Z87.51] 09/14/2024 Vaginal bleeding in , third trimester *09/14/2024 10/03/2024 contractions [O47.00] 09/15/2024 10/03/2024 Prematurity [P07.30] 09/15/2024 10/06/2024 Hx of antibiotic allergy [Z88.1] 09/15/2024 10/21/2024 History of MRSA infection [Z86.14] 09/15/2024 Intact amniotic membranes during in t*09/17/2024 10/21/2024 Bacterial vaginosis in [O23.599, B96.*09/21/2024 10/21/2024 Vaginal bleeding during [O46.90] 09/21/2024 10/03/2024 33 weeks gestation of [Z3A.33] 10/03/2024 10/06/2024 premature rupture of membranes (PPROM) *10/03/2024 10/06/2024 state [Z39.2] 10/06/2024 10/21/2024 Rash in adult [R21] 10/08/2024 10/21/2024 Vaginal bleeding [N93.9] 10/08/2024 10/21/2024 Acute bilateral thoracic back pain [M54.6] 10/08/2024 10/21/2024 Mastitis associated with [O91.23] 10/21/2024 state [Z39.2] 11/10/2024 Encounter Status:Closed by FE PAYAN on 12/07/24 [facility] Emergency Department Summary on 11-29-2024 Emergency Department Summary [facility] Medical Records Department [address] [place] [address] Emergency Department Summary 11/29/24 MR#: [id number] Acct: [id number] Name: ROSY DOMINIQUE Rep #: [id number] : 2005 From: Wagner Frias DO PCP: Dr. Florentin Toribio DO Status:DEP ER Location: ED HPI History of Present Illness Chief Complaint: Dental Informant: patient and parent Narrative Narrative: 19-year-old female presenting to the emergency room with dental pain and swelling. Patient states that yesterday she began to have some dental pain. She states that now she has developed some swelling over the medial aspect of the tooth that is pushing on her tongue. She has an appointment with her dentist. She notes significant medical history. She is allergic to amoxicillin and vancomycin. [facility] Medical History Low back pain during Diabetes type I Seasonal allergies Seizure Breast abscess Lump of breast Mastitis Breech presentation Premature rupture of membranes Toxoplasmosis affecting Positive GBS test Supervision of normal first teen POTS (postural orthostatic tachycardia syndrome) Home Medications ???Medication ???Instructions ???Recorded ???Last Taken ???Type PNV 153-FA 400 mcg-om3 35 mg-dha 1 tab PO DAILY 04/09/24 Unknown History 25 mg-epa 5 mg-fish oil chew tablet clindamycin HCl 300 mg capsule 300 mg PO Q6H #40 CAPSULES 11/29/24 Unknown Rx (Cleocin HCl) norethindrone (contraceptive) 0.35 0.35 mg PO DAILY 11/29/24 Unknown History mg tablet (Jencycla) oxycodone-acetaminophen 5 mg-325 1 tab PO Q6H PRN PRN Pain 3 days 11/29/24 Unknown Rx mg tablet #12 TABLETS Allergy/AdvReac Type Severity Reaction Status Date / Time amoxicillin Allergy Rash Verified 11/29/24 19:34 coconut Allergy Anaphylaxis Verified 11/29/24 19:34 dexmethylphenidate Allergy Itching Verified 11/29/24 19:34 hydrocodone Allergy Rash Verified 11/29/24 19:34 latex Allergy skin Verified 11/29/24 19:34 hayes, headaches onion Allergy Shortness Verified 11/29/24 19:34 of breath vancomycin Allergy Rash Verified 11/29/24 19:34 Anesthetics - Amide Type - AdvReac Severe Anaphylaxis Verified 11/29/24 19:34 Select A (anesthesia) Family History Mother POTS (postural orthostatic tachycardia syndrome) Autism Grandmother Breast cancer Thyroid disorder Skin cancer Sister Autism Son Autism Surgical History H/O laparoscopy Status post delivery Social History adopted: Yes household members: significant other, family and children number of children: 1 current occupational status: employed current occupation: [employer] pets and animals: Yes (Avoid litterbox) pets and animals: cat(s) and dog(s) history of recent travel: No sexually active: Yes Smoking Status: Former smoker quit date: 01/12/24 Electronic Cigarette Use: with nicotine alcohol intake: never substance use type: does not use well-balanced diet: daily or most days caffeine: Yes (not while ) Type: tea Number of servings: 1 eating out: rarely or never what type of physical activity do you participate in: none hayden/episcopalian: None seatbelt use: always do you feel safe at home: Yes 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 ROS ROS ED Constitutional Constitutional ED: Denies chills, fever(s) or weight loss Eyes Eyes: Denies change in vision or diplopia ENT ENT ED: Reports other Details: See history of present illness ; Denies ear pain, rhinorrhea or sore throat Cardiovascular Cardiovascular: Denies chest pain, orthopnea, palpitations or racing heartbeat Respiratory/Chest Respiratory/Chest: Denies cough, dyspnea or orthopnea Gastrointestinal Gastrointestinal: Denies abdominal pain, diarrhea, nausea or vomiting Genitourinary Genitourinary ED: Denies dysuria, hematuria or urinary frequency Musculoskeletal Musculoskeletal: Denies arthralgias or myalgias Integumentary Denies abscess or rash Neurologic Neurologic: Denies headache(s) or weakness Psychiatric Psychiatric: Denies anxiety, depression, suicidal ideation or suicidal thoughts Endocrine Endocrinology: Denies polydipsia, polyphagia or polyuria Allergic/Immunologic Allergic/Immunologic ED: Denies mouth swelling, tongue swelling or urticaria EXAM Physical Exam Const Vital Signs: 11/29/24 19:34 Temperature 97.1 F L Temperature Source Temporal Pulse Rate 86 Respiratory Rate 18 Blood Pressure 112/82 H Blood Pressure Mean 92 Pulse Ox 100 Oxygen Delivery Method Room Air (more content not included)... [facility] ) -------- ROSY DOMINIQUE ([id number]) 3 F Date Time Provider Department 10/21/24 11:00 AM LYNNETTE BURK During your visit today, we recorded the following information about you: Pulse Blood pressure Weight 87/minute 110/79 62.1 kg Millicent Lomax MA 10/21/2024 12:45 PM Signed Patient presents for 2 week visit and incision check. Millicent Lomax MA October 21, 2024 11:13 AM Lynnette Burk DO 10/21/2024 12:45 PM Addendum EARLY VISIT Rosy Dmoinique is a 19 year old here for 2 week visit. Delivery Summary: Gary Dominique [[id number]] Delivery Information: Delivery Date: 10/05/24 Delivery type: , Low Transverse Delivering Clinician: Mildred Petit MD : Gender: Female Weight (grams): 1940 g One Minute : 8 Five Minute : 8 ROS: General: Denies any fever or chills Hypertension Screening: Headache? No. Visual Changes? No Epigastric Pain? No Increased Swelling? No Taking any BP medications at home? No If applicable, monitoring BP at home? (If Yes, include results) No Mood: normal Depression: denies symptoms of depression. OB Depression and Anxiety Screening- This Encounter (since 10/20/2024) None Feeding: Pumping; baby in NICU problems: Concern for mastitis as she has redness, pain, and swelling of left breast Bladder: No dysuria, gross hematuria, urinary frequency, urinary urgency, or incontinence Bowel symptoms: Negative for abdominal discomfort, blood in stools or black stools and change in bowel habits Abdomen: She reports no incisional redness, tenderness, erythema Bleeding: spotting Bottom and Perineum: No issues Sleep: no sleep concerns, does not feel rested [place] since delivery: Not resumed Emotional support: Yes Exercise: N/A Other issues: None SENSITIVE EXAM: The sensitive examination was discussed with the Patient or Patient's Authorized Electronic Tester. As applicable, any other physician, advance practice provider, medical student, or other health professional student that will be observing or involved in the sensitive examination for educational or training purposes was discussed with the Patient or Authorized Electronic Tester. The Patient or Authorized Electronic Tester has agreed to proceed with the sensitive examination. (Sensitive examination includes inspection and/or palpation of the breasts, pelvis, prostate and anorectal regions). PHYSICAL EXAMINATION: BP 110/79 Pulse 87 Wt 62.1 kg (137 lb) LMP 02/14/2024 BMI 20.23 kg/m? General: pleasant female in no apparent distress, AANDO x 3. Skin warm and intact. Breast: left breast: area of erythema and warmth without induration at approximately 10-11 o'clock position, tender to palpitation; no abnormal discharge, no lymphadenopathy right breast: soft, non-tender, symmetric, no dominant mass, normal nipple-areolar complex, no lymphadenopathy, and no nipple discharge Abdomen: soft, non-tender, no masses, no hepatosplenomegaly, and no lymphadenopathy /Incision: pfannenstiel incision without redness, swelling, or drainage Pelvic: Deferred Bimanual: Deferred ASSESSMENT AND PLAN: 19 year old status post CS with course complicated by mastitis. Assessment AND Plan state - 2 weeks s/p repeat low transverse section at 33 weeks secondary to suspicious testing in the setting of PPROM - coping well, baby in NICU and she visits often - pumping without difficulty but concerned she may have mastitis - abdominal exam unremarkable with incision C/D/I - normotensive today - Contraception plan: desires POPs, rx sent to pharmacy - follow up in 4 weeks for 6 week visit Mastitis associated with - has been pumping; infant in NICU - left breast with area of erythema and warmth without induration - Bactrim BID x 7 days sent to pharmacy (allergy to PCN) - encouraged continued pumping Lynentte Burk DO Attending Note I discussed with resident. The patient was not examined by the attending. I reviewed the resident's note. I agree with the resident's assessment and plan unless otherwise noted. Signature: Helen Hayward MD Date: 10/21/2024. Time: 6:18 PM Lynnette Burk DO 10/21/2024 12:44 PM Edited - 2 weeks s/p repeat low transverse section at 33 weeks secondary to suspicious testing in the setting of PPROM - coping well, baby in NICU and she visits often - pumping without difficulty but concerned she may have mastitis - abdominal exam unremarkable with incision C/D/I - normotensive today - Contraception plan: desires POPs, rx sent to pharmacy - follow up in 4 weeks for 6 week visit Lynnette Burk DO 10/21/2024 12:44 PM Luis (more content not included)... [facility] CNDSon 10-07-2024 [facility] HNO ID: [id number] Author: KIMBERLY GARDUNO MD Service: Obstetrics Author Type: Resident Type: Discharge Summary Filed: 10/07/2024 15:40 Note Text: -------- Attestation signed by Kimberly Garduno MD at 10/07/2024 3:40 PM Attending Note Reviewed the discharge summary for this patient being cared for by the OB team and agree with its content and above plan of care unless otherwise indicated. I was present with the resident during the discharge services. We discussed the case and I agree with the findings and discharge plan as documented in their note. I personally spent < 30 minutes in discharge day management. Signature: Kimberly Garduno MD Date: October 07, 2024 Time: 3:40 PM -------- DISCHARGE SUMMARY OBSTETRICS PATIENT NAME: Rosy Dominique ADMISSION DATE: 10/03/2024 DISCHARGE DATE: 10/07/2024 Attending Physician: Jose A Ramirez MD Code Status: Not on file Treatment Team: Attending Provider: Jose A Ramirez MD Primary Service: Ob, [place] [facility] Maternal Obstetric Provider: Jose A Ramirez Reason for Hospitalization: Intrauterine . 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) Previous baby with growth restriction (POA: Yes) POTS (postural orthostatic tachycardia syndrome) (POA: Yes) Hx of antibiotic allergy (POA: Yes) History of MRSA infection (POA: Yes) Resolved Problems: Prematurity (POA: Yes) 33 weeks gestation of (POA: Yes) premature rupture of membranes (PPROM) with unknown onset of labor (POA: Yes) PROCEDURES/SURGERY DURING HOSPITALIZATION: Delivery Summary: Gary Dominique [[id number]] Delivery Information: Delivery Date: 10/05/24 Delivery type: , Low Transverse Delivering Clinician: Mildred Petit MD [place]: Gender: Female Weight (grams): 1940 g One Minute : 8 Five Minute : 8 Procedures (if applicable) Recent Surgical Summary Past Procedures (09/07/2024 to Today) Date Procedure/Visit Type Providers Loc / Dept 10/05/2024 SECTION Mildred Petit (Primary)[facility] [place] [facility] Course: Rosy Dominique is a 19 year old now who was admitted at 33w1d gestation for premature rupture of membranes. Her was complicated otherwise by history of seizures, history of delivery, POTS, history of MRSA infection, and antibiotic allergies. Patient was started on latency antibiotics for premature rupture of membranes. For prematurity, she received betamethasone for lung maturity and NICU was consulted. At 33w3d gestation, patient reported decreased movement. On monitoring, category II tracing was noted with minimal variability and no accelerations. She was sent to [facility] for formal BPP. BPP result was 2/10. Patient was counseled on proceeding with repeat delivery in setting of non-reassuring testing. She had a uncomplicated delivery of a female infant. Apgars were 8 and 8 at 1 and 5 minutes respectively. Patient declines contraception. Her course was uncomplicated and discharged home. Patient will follow up with 1 incision check and 6-week visits. Consulting Teams During Hospitalization: None Patient Condition @ Discharge: Stable Discharge Disposition: Home/Self Care Specific Concerns for Follow-up Post Discharge: Routine Care and Incisional/Perineal Care Information Provided to Patient: Activity When You Leave the Hospital Gradually increase your activity level until back to normal at approximately 6 weeks post- (Walking and stairs as tolerated) May use stairs No baths for 6 weeks to allow the cervix to close (this includes swimming pools and hot tubs) No driving until you stop taking narcotic medicine and you are able to respond to adverse traffic conditions: Until you are not too sore to stop or turn quickly No lifting greater than 15 pounds for six weeks No walking restrictions Shower daily, towel or blow dry incision (low heat setting) Six Weeks Pelvic Rest - This means no sex, tampons, douching or any items in your vagina Diet Instructions Resume a regular diet with emphasis on healthy and iron rich foods. Nursing moms need 500 EXTRA calories a day to support breast milk production. Wound/Surgical Site Care Check your incision for signs of infection: redness, swelling, drainage Do not apply any lotions or powders near any incision Do not cover incision with any bandage Keep your incision clean and dry Steri-strips may fall off in the shower. If they have not fal (more content not included)... [facility] CNPNon 10-07-2024 CNPN Telephone ([facility]) -------- ROSY DOMINIQUE ([id number]) 3 F Date Time Provider Department 10/07/24 MEENU GUAN During your visit today, we recorded the following information about you: Meenu Guan MD 10/07/2024 2:53 PM Signed Rosy Dominique is a 19Y who is s/p a repeat section for BPP 12/20 in the setting of premature rupture of membranes. She met all milestones as appropriate and is discharging from the hospital on POD2. She had a female infant who remains in the NICU and declined control. Please call to schedule a 1 week incision check and a 6 week visit. Thank you, MD Rei Restrepo Shalondia 10/11/2024 8:36 AM Signed Called patient X1 LVM Alma Minaya October 11, 2024 8:36 AM Alma Minaya 10/12/2024 8:56 AM Signed Called patient X2 LVM Alma Minaya October 12, 2024 8:56 AM Alma Minaya 10/13/2024 8:13 AM Signed Called patient X3 LVM, Unable to Reach letter sent. Alma Minaya October 13, 2024 8:12 AM Allergies As of Date: 10/07/2024 Noted Allergy Reaction AMOXICILLIN 08/18/2022 2 - Rash 8 - GI Upset 16 - Unknown ANESTHETICS - AMIDE TYPE - SELECT*04/12/2024 14 - Other: See Comments BUPIVACAINE 08/23/2022 12 - Shortness of Breath CHLOROPROCAINE 08/23/2022 12 - Shortness of Breath COCONUT 06/14/2022 10 - Anaphylaxis 16 - Unknown DEXAMETHASONE 12/08/2022 9 - Itching HYDROCODONE 08/18/2022 9 - Itching 16 - Unknown LATEX 12/19/2021 14 - Other: See Comments 16 - Unknown LIDOCAINE 08/23/2022 12 - Shortness of Breath ONION EXTRACT 04/12/2024 14 - Other: See Comments VANCOMYCIN 08/20/2022 2 - Rash 14 - Other: See Comments VICODIN (HYDROCODONE-ACETAMINOPH E*08/18/2022 2 - Rash Date Reviewed: 10/06/2024 Reviewed by: Onelia Torres, RN - Fully Assessed 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 - acetaminophen (TYLENOL) 500 mg tablet Take 2 tablets by mouth every 6 hours. - ibuprofen (MOTRIN) 600 mg tablet Take 1 tablet by mouth every 6 hours. - oxyCODONE IR (ROXICODONE) 5 mg immediate release tablet Take 1-2 tablets by mouth every 6 hours as needed for up to 8 doses. - ferrous sulfate (IRON) 325 mg (65 mg iron) tablet Take 1 tablet by mouth two times a day. - ondansetron orally disintegrating (ZOFRAN ODT) 4 mg disintegrating tablet Take 1 tablet by mouth every 8 hours as needed for nausea/vomiting. - gabapentin (NEURONTIN) 300 mg capsule Take 1 capsule by mouth three times a day for 90 days. - cyclobenzaprine (FLEXERIL) 10 mg tablet Take 0.5 tablets by mouth two times a day as needed. - vit calc,iron,folic (PRENAT.VITS,ANISH,MIN-IRO N-FOLIC ORAL) Take by mouth once daily. 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*04/07/2024 04/26/2024 Threatened labor, antepartum [O47.00] 04/28/2022 06/24/2024 Seizure (HCC) [R56.9] 07/24/2023 Premature rupture of membranes [O42.90] 08/16/2022 04/26/2024 Palpitations [R00.2] 06/13/2023 05/26/2024 Cardiomyopathy (HCC) [I42.9] 04/07/2024 04/26/2024 Breech presentation [O32.1XX0] 08/16/2022 04/26/2024 Arthralgia of temporomandibular joint [M26.629] 04/30/2023 05/26/2024 Supervision of high risk in third tri*04/07/2024 History of delivery, currently *04/07/2024 with uncertain viability [O36.8*04/07/2024 04/26/2024 History of prior with small for gesta*04/07/2024 05/26/2024 History of [Z98.891] 04/07/2024 History of toxoplasmosis [Z86.19] 04/07/2024 05/26/2024 Antepartum diabetes mellitus [O24.919] 04/07/2024 04/26/2024 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] 04/07/2024 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] 04/07/2024 M-Power Referred [O99.891] 04/08/2024 Abdominal pain affecting [O26.899, R1*04/15/2024 09/15/2024 Headache in , second trimester [O26.89*05/24/2024 09/15/2024 Dizziness [R42] 05/24/2024 05/26/2024 Hx of impaired glucose tolerance [Z87.898] 05/26/2024 Previous baby with growth restriction [Z8*06/24/2024 POTS (postural orthostatic tachycardia syndrome*06/24/2024 Abdominal cramping [R10.9] 07/01/2024 08/22/2024 Decreased movements in second trimester [*07/28/2024 08/22/2024 Vaginal bleeding in , second trimester*07/29/2024 08/22/2024 Encounter for suspected premature rupture of am*08/17/2024 09/13/2024 27 weeks gestation of [Z3A.27] 08/22/2024 08/31/2024 Pelvic pain affecting [O26.899, R10.2]08/22/2024 10/03/2024 30 weeks gestation of preg (more content not included)... [facility] ANES POSTPROC EVALon 024 ANES POSTPROC EVAL HNO ID: [id number] Author: BE BELL APRN.CRNA Service: Anesthesiology Author Type: Nurse Accessibility Lift Technician Type: Anesthesia Postprocedure Evaluation Filed: 10/06/2024 08:04 Note Text: POST ANESTHESIA EVALUATION NOTE : 2005 Procedure Summary Date: 10/05/24 Room / Location: [facility] Anesthesia Start: 1151 Anesthesia Stop: 1300 Procedure: SECTION Diagnosis: Non-reassuring electronic monitoring tracing (Non-Reassuring Status ) Surgeons: Mildred Petit MD Responsible Provider: Kathy Laird APRN.CRNA Anesthesia Type: spinal ASA Status: 3 Anesthesia Type: spinal Last Vitals Vitals Value Taken Time BP 113/68 10/06/24 0728 Temp 36.4 ?C (97.5 ?F) 10/06/24 0728 Pulse 70 10/06/24 0728 Resp 18 10/06/24 0728 SpO2 95 % 10/06/24 0728 Trip, Gary Gallegos [[id number]] Baby Delivery: 10/05/2024 1220 Post Anesthesia Patient Status Patient Evaluation: floor. Neurological Status: aware and responsive. Pulmonary Status: breathing comfortably on room air Airway Control: returned to baseline unsupported. Cardiovascular Status: stable. Pain Management: clinically adequate Postoperative Hydration: acceptable. Intraoperative Events: no significant anesthesia events Post Operative Nausea/Vomiting Status: no significant post operative nausea or vomiting Recommendation: continue current plan of care. Anesthesia Observations No Documentation SIGNATURE: Be Bell APRN.POWER SHOVEL OPERATOR PATIENT NAME: Rosy Dominique DATE: October 06, 2024 TIME: 8:04 AM CSN: [id number] [facility] CBC panel Auto (Bld)on 10-06 Erythrocyte distribution width (RBC) [Ratio] 14.2 % Normal 11.5-15.0 [facility] Comment on above: Order Comment: Speci men Type: BLOOD SPECIMENOrdering Facility: [facility] Address: [address] [place] [address] Performed By: #### 5 8410-2 ####[facility] LABORATORYCLIA [id number] [address] OF [facility] Hematocrit (Bld) [Volume fraction] 27.3 % Low 36.0-46.0 [facility] Comment on above: Order Comment: Speci men Type: BLOOD SPECIMENOrdering Facility: [facility] Address: [address] [place] [address] Performed By: #### 5 8410-2 ####[facility] LABORATORYCLIA [id number] [address] Hemoglobin (Bld) [Mass/Vol] 8.6 g/dL Low 11.5-15.5 [facility] Comment on above: Order Comment: Speci men Type: BLOOD SPECIMENOrdering Facility: [facility] Address: [address] [place] [address] Performed By: #### 5 8410-2 ####[facility]ORATORYCLIA [id number] [address] STATES [facility] MCH (RBC) [Entitic mass] 27.0 pg Normal 26.0-34.0 [facility] Comment on above: Order Comment: Speci men Type: BLOOD SPECIMENOrdering Facility: [facility] Address: [address] [place] [address] Performed By: #### 5 8410-2 ####[facility]ORATORYCLIA [id number] [address] [place] MCHC (RBC) [Mass/Vol] 31.5 g/dL Normal 30.5-36.0 [facility] Comment on above: Order Comment: Speci men Type: BLOOD SPECIMENOrdering Facility: [facility] Address: [address] [place] [address] Performed By: #### 5 8410-2 ####[facility]ORATORYCLIA [id number] [address] MCV (RBC) [Entitic vol] 85.6 fL Normal 80.0-100.0 [facility] Comment on above: Order Comment: Speci men Type: BLOOD SPECIMENOrdering Facility: [facility] Address: [address] [place] [address] Performed By: #### 5 8410-2 ####[facility] LABORATORYCLIA [id number] [address] OF [facility] Nucleated RBC (Bld) [#/Vol] 10*3/uL Normal <0.01 [facility] Comment on above: Order Comment: Speci men Type: BLOOD SPECIMENOrdering Facility: [facility] Address: [address] [place] [address] Performed By: #### 5 8410-2 ####[facility]ORATORYCLIA [id number] [address] [place] [facility] Platelet mean volume (Bld) [Entitic vol] 11.6 fL Normal 9.0-12.7 [facility] Comment on above: Order Comment: Speci men Type: BLOOD SPECIMENOrdering Facility: [facility] Address: [address] [place] [address] Performed By: #### 5 8410-2 ####[facility]ORATORYCLIA [id number] [address] [place] [facility] Platelets (Bld) [#/Vol] 157 10*3/uL Normal 150-400 [facility] Comment on above: Order Comment: Speci men Type: BLOOD SPECIMENOrdering Facility: [facility] Address: [address] [place] [address] Performed By: #### 5 8410-2 ####[facility] LABORATORYCLIA [id number] [place] [address] [place] RBC (Bld) [#/Vol] 3.19 10*6/uL Low 3.90-5.20 [facility] Comment on above: Order Comment: Speci men Type: BLOOD SPECIMENOrdering Facility: [facility] Address: [address] [place] [address] Performed By: #### 5 8410-2 ####[facility]ORATORYCLIA [id number] [address] WBC (Bld) [#/Vol] 7.90 10*3/uL Normal 3.70-11.00 [facility] Comment on above: Order Comment: Speci men Type: BLOOD SPECIMENOrdering Facility: [facility] Address: [address] [place] [address] Performed By: #### 5 8410-2 ####[facility] LABORATORYCLIA [id number] [address] HIGH SENSITIVITY TROPONIN To n 10-06-2024 Troponin T.cardiac High sensitivity method [Mass/Vol] <6 Normal <12 [facility] Comment on above: Order Comment: Speci men Type: SWAB Ordering Facility: [facility] Address: [address] [place] [address] Performed By: #### T RVAMP, 93442-8 #### [facility] CLIA [id number] [address] ANES PRE-OPon 10-05-2024 ANES PRE-OP HNO ID: [id number] Author: KATHY LAIRD APRN.CRNA Service: Anesthesiology Author Type: Nurse Accessibility Lift Technician Type: Anesthesia Preprocedure Evaluation Filed: 10/05/2024 12:33 Note Text: OB ANESTHESIA PRE-PROCEDURE ASSESSMENT PATIENT NAME: Rosy Dominique : 2005 [facility] 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 Tracheostomy tube not present Mallampati: II. TM distance: >3 FB. Neck ROM: full ROM without neurological symptoms. Mouth opening: adequate. Short neck: no. Thick neck: no Suero present: no Lip Bite Test: II Microretrognathia/Micron agthia/Recessed Chin: No DENTAL Normal dental observations. Dental findings: teeth intact. Additional exam findings: no II - ANESTHESIA PLAN ASA Score: 3 Anesthetic Plan: spinal The patient is not a current smoker. NPO Status: adequate Anesthetic plan additional comments: Per cardiology: RBBB (right bundle branch block): Patient's EKGs consistently show a right bundle branch block pattern. Recent echocardiogram showed no structural abnormalities. -DELIVERY PLAN: ? Diagnosis: Variance of unknown significance, SCN5A and TNNT2 ? PeriPartum/Cardiac Concerns: ? Location of Delivery: [facility] ? Mode of delivery: per OB ? Timing of delivery: per OB ? Staff required in delivery room: standard OB ? Anesthesia consult (WHO gp II-III and above): No ? Type of anesthesia: slowly dosed epidural ? Drugs to avoid: n/a ? Intrapartum fluid management: no ? Type of monitoring: ? arterial line no ? telemetry no ? I/Os no ? Anticoagulation: none ? Medications prior to delivery: none ? Medications after delivery: none ? Post-delivery location after 2 hour recovery: standard ? Post-delivery monitoring: none ? Post- follow up: Yearly follow up with Dr. Wall ? Service to consult on admission with contact information: consult cardiology as needed -Pt with previous : bupivacaine spinal. Pt reports several hours later, face felt funny and itching. As a precaution, they wrote down all the medications I had received as allergies to cover all their bases. General anesthesia reviewed w pt. Pt requests spinal as she believes the bupivacaine did not cause her symptoms. . Beta Susannah Administration of chronic beta susannah medication not planned. Reasons for not administering beta susannah perioperatively: other Monitoring Plan Monitoring plan: standard ASA. Post Procedure Analgesic Plan Postoperative analgesic plan: multimodal analgesia. Informed Consent Anesthetic risks, benefits, alternatives, personnel and consent discussed: yes. Patient / Responsible Democrat agrees to proceed: yes Patient / Surrogate agrees to blood products: Yes Potential Anesthesia issues that may suggest increased risk of complications or contraindication to planned procedure: none. 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 Thyroid Nodule M-Power Referred Hx of Impaired Glucose Tolerance Previous Baby With Growth Restriction Pots (Postural Orthostatic Tachycardia Syndrome) History of Delivery Prematurity Hx of Antibiotic Allergy History of Mrsa Infection Intact Amniotic Membranes During in Third Trimester Bacterial Vaginosis in 33 Weeks Gestation of Premature Rupture of Membranes (Pprom) With Unknown Onset of Labor PAST MEDICAL HISTORY Diagnosis Date Brugada syndrome Chronic daily headache Complication of anesthesia Diabetes, gestational POTS (postural orthostatic tachycardia syndrome) Seizure (HCC) Thyroid disease Trauma PAST SURGICAL HISTORY Procedure Laterality Date DELIVERY ONLY 06/14/2022 L'SCOPE DX W/WO BRUSHINGS/WASHINGS 03/17/2024 Catarino to r/o ectopic MASTOTOMY W/EXPLORATION/DRAINAGE ABSCESS DEEP Right 08/18/2022 FAMILY HISTORY Problem Relation Age of Onset None Mother None Father Diabetes Paternal Grandfather Social History Tobacco Use Smoking status: Never Passive exposure: Yes Smokeless tobacco: Never Tobacco comments: vape Vaping Use Vaping status: Former Substances: Nicotine Substance Use Topics Alcohol use: No Drug use: Never ferrous sulfate (IRON) 325 (more content not included)... Normal [facility] ECG COMPLETEon 10-05-2024 ECG COMPLETE Ventricular Rate : 7 1 BPM Atrial Rate : 71 BPM P-R Interval : 120 ms QRS Duration : 90 ms Q-T Interval : 392 ms QTC Calculation(Bazett) : 425 ms Calculated P Needham : 61 degrees Calculated R Needham : 33 degrees Calculated T Needham : 24 degrees NORMAL SINUS RHYTHM NONSPECIFIC T WAVE ABNORMALITY ABNORMAL ECG NO PREVIOUS ECGS AVAILABLE Confirmed by MD HEART VINAY ([id number]) on 10/06/2024 6:05:19 PM NAME : ROSY DOMINIQUE PID : [id number] : 2005 Gender : Female Race : ORD : [id number] Procedure Date : Oct 05 2024 22:28:25 Edit Date : Oct 06 2024 18:05:21 Diagnosis: NORMAL SINUS RHYTHM NONSPECIFIC T WAVE ABNORMALITY ABNORMAL ECG NO PREVIOUS ECGS AVAILABLE Confirmed by MD HEART VINAY ([id number]) on 10/06/2024 6:05:19 PM Test Reason : Chest Pain Location : 200 : [facility] 3122 Overread By : MD HEART VINAY Edited By : MD HEART VINAY Referred By : , Acquired by : GABRIEL LONDONO [facility] Examination level ultrasound on 10-05-2024 [facility] Radiology Study observation (narrative) [facility] OPERATIVE NOon 10-05-2024 OPERATIVE NO HNO ID: [id number] Author: MILDRED PETIT MD Service: Obstetrics Author Type: Resident Type: Operative Report Filed: 10/11/2024 13:31 Note Text: -------- Attestation signed by Mildred Petit MD at 10/11/2024 1:31 PM Attending Note I was present for the entire procedure performed by the resident through closure of the skin. I agree with the documentation below. There were no complications. Signature: Mildred Petit MD Date: October 11, 2024 Time: 1:30 PM -------- OB OPERATIVE/PROCEDURE REPORT LOG ID: [id number] Surgery/Procedure Date: 10/05/2024 Incision/Procedure Start Time: 12:13 PM Incision Close/Procedure End Time: 12:48 PM Surgeon(s)/Proceduralist (s) and Generalist(s): Surgeons and Role: * Mildred Petit MD - Primary * Derick Lebron MD - Resident - Assisting No Additional Staff Informed Consent: Informed Consent obtained and on the chart Procedure: Section Gestational Age at Delivery: 33w3d Reason for Delivery Today: PRIMARY Reason for Delivery : Suspicious Testing Additional Clinical Indicator(s) for delivery: Ruptured Membranes Delivery type: , Low Transverse Intrapartum Complications: None Delivery between 22w0d - 36w6d?: Yes What was the indication for ?: Medically-indicated (preeclampsia, maternal complications, distress or other complications) Has the patient completed their course of steroids?: Full Course Indications for : Other (see delivery note) Additional Pre-Op Details (if applicable): Rosy Dominique is a 19 year old now who was admitted at 33w1d gestation for premature rupture of membranes. Her was complicated otherwise by history of seizures, history of delivery, POTS, history of MRSA infection, and antibiotic allergies. Patient was started on latency antibiotics for premature rupture of membranes. For prematurity, she received betamethasone for lung maturity and NICU was consulted. At 33w3d gestation, patient reported decreased movement. On monitoring, category II tracing was noted with minimal variability and no accelerations. She was sent to [facility] for formal BPP. BPP result was 2/10. Patient was counseled on proceeding with repeat delivery in setting of non-reassuring testing. Postop Diagnosis: Same as pre-op diagnosis Procedures and Anesthesia: Procedure(s) and Anesthesia Type: * SECTION Information for the patient's : Gary Dominique [[id number]] Type: , Low Transverse Operative Findings: Weight: 1.94 kg (4 lb 4.4 oz) (Filed from Delivery Summary) Sex: female One Minute : 8 Five Minute : 8 Cord Complications: None Additional Findings: Normal uterus, Normal tubes, and Normal ovaries TECHNIQUE: The patient was taken to the operating room where spinal anesthesia was administered and found to be adequate. She was placed in supine position with a left tilt. SCD's were placed. Decker catheter was placed under sterile conditions. She was prepped and draped in the usual sterile fashion for abdominal surgery. Previous pfannenstiel incision was repeated along previous scar.Incision was taken down to the fascia sharply, and the fascia was incised in the midline. Incision was extended laterally sharply. Rectus muscles were dissected off the fascia bluntly and sharply and divided in the midline. Peritoneum was entered bluntly and incision was extended superiorly and inferiorly. The bladder blade was then introduced. The vesicouterine peritoneum was incised and the incision was taken laterally. The bladder flap was created digitally. The bladder blade was then reintroduced. Hysterotomy was performed in a low transverse fashion with the scalpel. The incision was extended manually in a superolateral fashion. was delivered from a from a cephalic position atraumatically. Cord was clamped and cut, and infant was handed off to awaiting staff. Cord blood was collected. , A sample of the cord was collected to obtain the pH. Placenta then delivered spontaneously with fundal massage. The uterus was then exteriorized and cleared of clots and debris. The bladder blade was reintroduced. The uterus was closed in One Layer with a running locked stitch of 0 Monocryl. Excellent hemostasis was obtained. Uterus was returned to the abdomen. Inspection of the pelvis noted the above findings. The fascia was closed with 0 Vicryl in a running fashion. Previous Pfannenstiel incision was excised. The subcutaneous tissue was irrigated and made hemostatic with bovie cautery. The subcutaneous tissue was closed with interrupted stitches of 3-0 Vicryl. The skin was closed with 4-0 Monocryl in a running (more content not included)... Normal [facility] SURGICAL PATHOLOGYon CASE REPORT Normal [facility] Comment on above: Order Comment: Speci men Type: TISSUE SPECIMENOrdering Facility: [facility] Address: [address] [place] [address] Result Comment: Surg [facility] Pathology Report Case: [id number] Authorizing Provider: Jose A Ramirez MD Collected: 10/05/2024 01:44 PM Ordering Location: [place] [address] L&D Received: 10/06/2024 12:13 PM Pathologist: Kimberly Emmanuel MD Specimen: Placenta, Single Performed By: #### S ####[facility] LABCLIA [id number] [address] OF [facility] LABORATORYCLIA [id number] [address] [facility] CLINICAL HISTORY 33w3d Normal [facility] Comment on above: Order Comment: Speci men Type: TISSUE SPECIMENOrdering Facility: [facility] Address: [address] [place] [address] Result Comment: PPRO M Performed By: #### S ####[facility] LABCLIA [id number] [address] LABORATORYCLIA [id number] [place] [address] DIAGNOSIS COMMENT The birthweig ht to placental weight ratio is elevated, but within normal limits at 7.5. The expected mean ratio at this gestational age is 6.0. Normal [facility] Comment on above: Order Comment: Speci men Type: TISSUE SPECIMENOrdering Facility: [facility] Address: [address] [place] [address] Performed By: #### S ####[facility] LABCLIA [id number] [address] LABORATORYCLIA [id number] [address] FINAL DIAGNOSIS Normal [facility] Comment on above: Order Comment: Speci men Type: TISSUE SPECIMENOrdering Facility: [facility] Address: [address] [place] [address] Result Comment: Michelle Schneider tavochristiano, 33 weeks and 3 days gestation, section: - Formalin fixed placenta weight 258 g, very small for gestational age (less than 3rd percentile) - Hypercoiled umbilical cord - Immature chorionic villi, appropriately developed for gestational age - Laminar decidual necrosis - Single large focus of avascular villi, indicative of vascular malperfusion [facility] 10/12/2024 Performed By: #### S ####[facility] LABCLIA [id number] [address] LABORATORYCLIA [id number] [address] FINAL PERFORMING LAB Normal [facility] Comment on above: Order Comment: Speci men Type: TISSUE SPECIMENOrdering Facility: [facility] Address: [address] [place] [address] Result Comment: Diag nostic interpretation performed at [facility], [address] [place] [address] CLIA# [id number] Diamond Driller Helper: Hamlet Burciaag M.D. Performed By: #### S ####[facility] LABCLIA [id number] [address] LABORATORYCLIA [id number] [address] GROSS DESCRIPTION Normal [facility] Comment on above: Order Comment: Speci men Type: TISSUE SPECIMENOrdering Facility: [facility] Address: [address] [place] [address] Result Comment: Michelle elliott, Lizbeth Received in formalin labeled placenta single is a single placental disc with detached umbilical cord and membranes. The attached umbilical cord measures 12 cm in length and 1.2 cm in diameter. It shows 8 coils. The insertion point is identified on the placental disc and is central in location. On sectioning the cord displays 3 vessels. The pineda-pink glistening membranes attach normally at the disc. The area of membrane rupture is 5.4 cm from the closest placental margin. The irregular shaped trimmed placental disc weighs 258 g and measures 14.5 x 12.5 x 2.4 cm. The maternal surface appears intact. Sectioning through the placenta at 1 cm intervals reveals spongy light to dark red parenchyma with no gross identifiable lesions. Electronic Tester sections are submitted as follows: A1 umbilical cord personal banking representative section and 2 membrane rolls A2 umbilical cord personal banking representative section and chorionic plate section near cord insertion A3-A4 central placenta full-thickness sections A5 wedge sections Gross examination performed at [facility], [address] [place] [address] KVB October 06, 2024 2:30 PM Performed By: #### S ####[facility] LABCLIA [id number] [address] LABORATORYCLIA [id number] [address] STATES OF [facility] MICROSCOPIC DESCRIPTION Normal [facility] Comment on above: Order Comment: Speci men Type: TISSUE SPECIMENOrdering Facility: [facility] Address: [address] [place] [address] Result Comment: Umbi lical cord: 3 vessels, no abnormalities membranes: No abnormalities Membranous decidua: Laminar necrosis Chorionic plate: No abnormalities Chorionic plate vasculature: No abnormalities Stem villi: Stenotic appearing vessels in tertiary stem villi; late obliterative change in large focus of avascular villi Terminal villi: Immature, appropriately developed for age; very large predominantly basal focus of avascular villi, many more than 45 total villi affected (A3) Intervillous space: No abnormalities Basal plate/decidua basalis: Focal basal plate plaque; maternal vessels adapted for identified in basal plate Performed By: #### S ####[facility] LABCLIA [id number] [place] [address] [place] [facility] LABORATORYCLIA [id number] [address] [place] C. trachomatis+N. gonorrhoea e DNA ROWENA+probe Ql (Unsp spec)on 10-03-2024 C. trachomatis rRNA ROWENA+probe Ql (Unsp spec) Not detected Normal Not detected [facility] Comment on above: Order Comment: Speci men Type: SWAB Ordering Facility: [facility] Address: [address] [place] [address] Performed By: #### T RVAMP, 27140-0 #### [facility] CLIA [id number] [address] [place] N. gonorrhoeae rRNA ROWENA+probe Ql (Unsp spec) Not detected Normal Not detected [facility] Comment on above: Order Comment: Speci men Type: SWAB Ordering Facility: [facility] Address: [address] [place] [address] Performed By: #### T RVAMP, 96806-1 #### [facility] CLIA [id number] [address] [place] CBC panel Auto (Bld)on 10-03 Erythrocyte distribution width (RBC) [Ratio] 13.5 % Normal 11.5-15.0 [facility] Comment on above: Order Comment: Speci men Type: BLOOD SPECIMENOrdering Facility: [facility] Address: [address] [place] [address] Performed By: #### 5 8410-2 ####[facility] LABORATORYCLIA [id number] [address] OF [facility] Hematocrit (Bld) [Volume fraction] 32.0 % Low 36.0-46.0 [facility] Comment on above: Order Comment: Speci men Type: BLOOD SPECIMENOrdering Facility: [facility] Address: [address] [place] [address] Performed By: #### 5 8410-2 ####[facility] LABORATORYCLIA [id number] [address] OF [facility] Hemoglobin (Bld) [Mass/Vol] 10.3 g/dL Low 11.5-15.5 [facility] Comment on above: Order Comment: Speci men Type: BLOOD SPECIMENOrdering Facility: [facility] Address: [address] [place] [address] Performed By: #### 5 8410-2 ####[facility] LABORATORYCLIA [id number] [address] [place] MCH (RBC) [Entitic mass] 27.2 pg Normal 26.0-34.0 [facility] Comment on above: Order Comment: Speci men Type: BLOOD SPECIMENOrdering Facility: [facility] Address: [address] [place] [address] Performed By: #### 5 8410-2 ####[facility] LABORATORYCLIA [id number] [address] [place] MCHC (RBC) [Mass/Vol] 32.2 g/dL Normal 30.5-36.0 [facility] Comment on above: Order Comment: Speci men Type: BLOOD SPECIMENOrdering Facility: [facility] Address: [address] [place] [address] Performed By: #### 5 8410-2 ####[facility] LABORATORYCLIA [id number] [address] MCV (RBC) [Entitic vol] 84.7 fL Normal 80.0-100.0 [facility] Comment on above: Order Comment: Speci men Type: BLOOD SPECIMENOrdering Facility: [facility] Address: [address] [place] [address] Performed By: #### 5 8410-2 ####[facility] LABORATORYCLIA [id number] [address] OF [place] Nucleated RBC (Bld) [#/Vol] 10*3/uL Normal <0.01 [facility] Comment on above: Order Comment: Speci men Type: BLOOD SPECIMENOrdering Facility: [facility] Address: [address] [place] [address] Performed By: #### 5 8410-2 ####[facility] LABORATORYCLIA [id number] [address] [place] Platelet mean volume (Bld) [Entitic vol] 11.4 fL Normal 9.0-12.7 [facility] Comment on above: Order Comment: Speci men Type: BLOOD SPECIMENOrdering Facility: [facility] Address: [address] [place] [address] Performed By: #### 5 8410-2 ####[facility] LABORATORYCLIA [id number] [address] Platelets (Bld) [#/Vol] 178 10*3/uL Normal 150-400 [facility] Comment on above: Order Comment: Speci men Type: BLOOD SPECIMENOrdering Facility: [facility] Address: [address] [place] [address] Performed By: #### 5 8410-2 ####[facility] LABORATORYCLIA [id number] [address] [place] RBC (Bld) [#/Vol] 3.78 10*6/uL Low 3.90-5.20 [facility] Comment on above: Order Comment: Speci men Type: BLOOD SPECIMENOrdering Facility: [facility] Address: [address] [place] [address] Performed By: #### 5 8410-2 ####[facility] LABORATORYCLIA [id number] [address] WBC (Bld) [#/Vol] 7.27 10*3/uL Normal 3.70-11.00 [facility] Comment on above: Order Comment: Speci men Type: BLOOD SPECIMENOrdering Facility: [facility] Address: [address] [place] [address] Performed By: #### 5 8410-2 ####[facility] LABORATORYCLIA [id number] [address] CONSULTon 10-03-2024 CONSULT HNO ID: [id number] Author: DAMIEN NANCE MD Service: Neonatology Author Type: Physician Type: Consults Filed: 10/03/2024 20:48 Note Text: NEONATOLOGY CONSULT SERVICE DATE: 10/03/2024 Admission Date: 10/03/2024 SERVICE TIME: 8:30 pm Date of : 2005 Age: [age] year old Sex: female Primary Care Physician: Connor Martini DO Consulting Receiving Barn Custodian: Damien Nance MD Subjective Consultation for this evaluation was requested by OB. Reason for consultation: at 33 1/7 weeks Recommendations will be communicated back to the requesting physician by way of shared medical record or letter. Objective MATERNAL HISTORY: Mother is a 20 year old female, , who is at 33w1d with an SCOTT of 11/20/2024, by Last Menstrual Period dating method. LMP: Patient's last menstrual period was 02/14/2024. 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 Current Outpatient Medications on File Prior to Encounter Medication Sig gabapentin (NEURONTIN) 300 mg capsule Take 1 capsule by mouth three times a day for 90 days. (Patient taking differently: Take 300 mg by mouth as needed.) cyclobenzaprine (FLEXERIL) 10 mg tablet Take 0.5 tablets by mouth two times a day as needed. vit calc,iron,folic (PRENAT.VITS,ANISH,MIN-IRO N-FOLIC ORAL) Take by mouth once daily. NIFEdipine ER (PROCARDIA XL) 30 mg 24 hr tablet Take 1 tablet by mouth once daily. (Patient not taking: Reported on 10/03/2024) Current Facility-Administered Medications Medication Dose Route Frequency NIFEdipine ER 30 mg tab(s) (PROCARDIA XL) 30 mg ORAL DAILY acetaminophen 1,000 mg tab(s) (TYLENOL) 1,000 mg ORAL Pre-Op PRN sodium citrate-citric acid 500-334 mg/5 mL 30 mL oral liquid (BICITRA) 30 mL ORAL Pre-Op PRN NaCl 0.9% iv flush bag 20 mL INTRAVENOUS PRN ceFAZolin iv piggyback 1 g in D5W (iso-osmotic) 50 mL (ANCEF) 1 g INTRAVENOUS q 8 HR Followed by [START ON 10/05/2024] cefUROXime 500 mg tab(s) (CEFTIN) 500 mg ORAL BID betamethasone acetate-betamethasone sodium phosphate 12 mg injection (CELESTONE) 12 mg INTRAMUSCULAR q 24 HR acetaminophen 1,000 mg tab(s) (TYLENOL) 1,000 mg ORAL q 6 H PRN ceFAZolin iv piggyback 2 g in D5W (iso-osmotic) 100 mL (ANCEF) 2 g INTRAVENOUS Pre-Op PRN azithromycin 500 mg in D5W 250 mL Vial-Bag (ZITHROMAX) 500 mg INTRAVENOUS Pre-Op PRN ondansetron (PF) 4 mg injection (ZOFRAN) 4 mg INTRAVENOUS q 6 H PRN complications: PROM The following was discussed with mother and father GENERAL: Neonatology presence and role at delivery: Yes Possible need for resuscitation: Yes DNR status: Discussed with patient/family No Need for admission to NICU: Yes Offered tour of NICU: Yes Discharge criteria: Yes Survival odds/morbidity AND mortality: Yes RESPIRATORY Risk of RDS/breathing problems: Yes Possible need for respiratory support: Yes CARDIOVASCULAR Discussed Hypotension, potential medical treatment: Yes Other (e.g. congenital heart disease): N/A NEUROLOGIC Risk of IVH/Neuro developmental delays: Yes Discussed need for evaluation by Shipyard Supervisor for ROP: N/A FEN Mother?s Preference: Benefits of breast milk: Yes Bottle: If needed Need for supplemental nutrition and/or IVFs: Yes INFECTION Risk factors for infection- congenital and nosocomial: Yes HEME Possible need for blood transfusion: Yes. Verbal consent obtained: No ACCESS Possible need for UAC/UVC/PICC: Yes. Verbal consent obtained: No MISC. Name if Digester Capper, if known: unknown Impression/Recommendatio ns Assessment: 19 year old female at 33 1/7 weeks GA with PPROM. Discussed risks and complications of having an infant at this GA. The parents understood all that was stated to them, all their questions were answered and they agreed with the plan. Physician [id number] total time, including discussion: 20 minutes, more than 50 % of time devoted to coordination of care and/or counseling. SIGNATURE: Damien Nance MD PATIENT NAME: Rosy Dominique DATE: October 03, 2024 TIME: 8:42 PM Normal [facility] CREATININE [facility] 10-03-2024 Creatinine [Mass/Vol] 0.51 mg/dL Low 0.58-0.96 [facility] Comment on above: Order Comment: Arden roman Type: BLOOD SPECIMEN Ordering Facility: [facility] Address: [address] [place] [address] Performed By: #### C RET1 #### [facility] CLIA [id number] [address] [place] [address] [place] Creatinine and Glomerular filtration rate.predicted panel (S/P/Bld) 137 mL/min/1.73m??? Normal >=60 [facility] Comment on above: Order Comment: Arden roman Type: BLOOD SPECIMEN Ordering Facility: [facility] Address: [address] [place] [id number] Result Comment: Trupti mated Glomerular Filtration Rate (eGFR) is calculated using the 2020 CKD-EPI creatinine equation. This equation utilizes serum creatinine, sex, and age as parameters. The creatinine assay has traceable calibration to isotope dilution-mass spectrometry. Refer to KDIGO guidelines for clinical interpretation. In patients with unstable renal function, e.g. those with acute kidney injury, the eGFR may not accurately reflect actual GFR. Performed By: #### C RET1 #### [facility] CLIA [id number] [address] HISTORY PHYSICALon HISTORY PHYSICAL HNO ID: [id number] Author: PRAVEEN ZAVALA MD Service: Maternal Medicine Author Type: Resident Type: H&P Filed: 10/03/2024 19:18 Note Text: -------- Attestation signed by Praveen Zavala MD at 10/03/2024 7:18 PM Attending Attestation I evaluated the patient and personally participated in the can components. I agree with the resident's findings and plan as documented and have discussed the case and management of the patient's care with the resident. I have reviewed and edited the above note to reflect our collaborative assessment and recommendations. 19yo at 33w1d with history of delivery at 31 weeks, presents with PPROM. Now stable without evidence of infection or labor. Agree with plan for latency antibiotics, repeat course of betamethasone and continue inpatient management until 34 weeks or sooner if indicated. Desires to TOLAC if laboring. Praveen Zavala MD October 03, 2024 7:16 PM -------- OBSTETRICS HISTORY AND PHYSICAL SERVICE DATE: October 03, 2024 SERVICE TIME: 7:53 AM Subjective Patient's stated reason for arrival: water broke HISTORY OF THE PRESENT ILLNESS: The patient is a 19 year old female, , who is at 33w1d with an SCOTT of 11/20/2024, by Last Menstrual Period dating method. Patient presents with PPROM at 0500 for clear fluid this morning, 10/03. She endorses a large gush and continued leaking when rolling over in bed. Good movement. C/O bloody show. Denies contractions. This is otherwise complicated by prematurity, history of MRSA breast infection, history of seizures, history of section, and allergies to amoxicillin and vancomycin. She was admitted previously in the with concerns for labor and received a course of Celestone. Patient denies history of HSV. Denies any alcohol, tobacco, or recreational drug use in this . POST DELIVERY CONTRACEPTION: Discussed post-delivery contraception options. Patient wants to start after first period following delivery. HISTORY REVIEW PAST MEDICAL HISTORY Diagnosis Date Brugada syndrome Chronic daily headache Complication of anesthesia Diabetes, gestational POTS (postural orthostatic tachycardia syndrome) Seizure (HCC) Thyroid disease Trauma PAST SURGICAL HISTORY Procedure Laterality Date DELIVERY ONLY 06/14/2022 L'SCOPE DX W/WO BRUSHINGS/WASHINGS 03/17/2024 Catarino to r/o ectopic MASTOTOMY W/EXPLORATION/DRAINAGE ABSCESS DEEP Right 08/18/2022 FAMILY HISTORY Problem Relation Age of Onset None Mother None Father Diabetes Paternal Grandfather Social History Tobacco Use Smoking status: Never Passive exposure: Yes Smokeless tobacco: Never Tobacco comments: vape Vaping Use Vaping status: Former Substances: Nicotine Substance Use Topics Alcohol use: No Drug use: Never Obstetric History T0 L1 SAB5 IAB1 Ectopic0 Multiple0 Live Births1 Name of Baby 1: Not recorded Date: Not recorded GA: Not recorded Type: Not recorded Apgar1: Not recorded Apgar5: Not recorded Living: Not recorded Name of Baby 2: Not recorded Date: Not recorded GA: Not recorded Type: Not recorded Apgar1: Not recorded Apgar5: Not recorded Living: Not recorded Name of Baby 3: Not recorded Date: Not recorded GA: Not recorded Type: Not recorded Apgar1: Not recorded Apgar5: Not recorded Living: Not recorded Name of Baby 4: Not recorded Date: 08/19/19 GA: Not recorded Type: INDUCED Apgar1: Not recorded Apgar5: Not recorded Living: Not recorded Name of Baby 5: Alice Date: 06/14/22 GA: 31w0d Type: , Unspecified Apgar1: Not recorded Apgar5: Not recorded Living: Living Name of Baby 6: Not recorded Date: 11/03/22 GA: Not recorded Type: MISSED AB Apgar1: Not recorded Apgar5: Not recorded Living: Not recorded Name of Baby 7: Not recorded Date: 01/18/24 GA: Not recorded Type: Not recorded Apgar1: Not recorded Apgar5: Not recorded Living: Not recorded Name of Baby 8: Not recorded Date: Not recorded GA: Not recorded Type: Not recorded Apgar1: Not recorded Apgar5: Not recorded Living: Not recorded Active Non-Hospital Problems Diagnosis Date Noted Bacterial vaginosis in 09/21/2024 Overview Note: - Patient confirms she is taking Flagyl - risks of BV in reviewed Intact amniotic membranes during in third trimester 09/17/2024 Hx of antibiotic allergy 09/15/2024 History of delivery 09/14/2024 Overview Note: - history of delivery at 31 weeks - OB admission on 09/14 for short term observation: intact membranes, normal cervical length - SVE: 50/-4, unchanged from exam on 09/14 Hx of impaired glucose tolerance 05/26/2024 Overview Note: - Patient stat (more content not included)... Normal [facility] Reagin and Treponema pallidu m IgG and IgM [Interp]on 10-03-2024 T. pallidum IgG+IgM IA Ql (S) Non-Reactive Normal Nonreactive [facility] Comment on above: Order Comment: Speci men Type: SWAB Ordering Facility: [facility] Address: [address] [place], [place] [id number] Performed By: #### T RVAMP, 84935-3 #### [facility] CLIA [id number] [address] [place] [id number] [place] Reagin+T pallidum IgG+IgM Se rPl-Impon 10-03-2024 Reagin and Treponema pallidum IgG and IgM [Interp] Cannot exclude recent Treponemal infection if specimen collected within 7-10 days after appearance of suspect lesions or 2-3 weeks after an exposure. Clinical correlation is required. Normal [facility] Comment on above: Order Comment: Speci men Type: SWAB Ordering Facility: [facility] Address: [address] [place] [address] Performed By: #### T RVAMP, 09981-0 #### [facility] CLIA [id number] [address] OF [facility] TRICHOMONAS VAGINALIS NAATon 10-03-2024 T. vaginalis DNA ROWENA+probe Ql (Unsp spec) Not detected Normal Not detected [facility] Comment on above: Order Comment: Speci men Type: SWAB Ordering Facility: [facility] Address: [address] [place] [address] Performed By: #### T RVAMP, 18557-4 #### [facility] CLIA [id number] [address] [place] [address] TYPE + SCREEN PRENATALon ABO AB Normal [facility] Comment on above: Order Comment: Speci men Type: BLOOD SPECIMEN Ordering Facility: [facility] Address: [address] [place] [address] Performed By: #### T SPN #### [facility] CLIA [id number] [address] Rh Nom (Bld) Positive Normal [facility] Comment on above: Order Comment: Speci men Type: BLOOD SPECIMEN Ordering Facility: [facility] Address: [address] [place] [address] Performed By: #### T SPN #### [facility] CLIA [id number] [address] TYPE AND SCREEN EXPIRATION 10/06/2024 23:59 Normal [facility] Comment on above: Order Comment: Speci men Type: BLOOD SPECIMEN Ordering Facility: [facility] Address: [address] [place] [address] Performed By: #### T SPN #### [facility] CLIA [id number] [address] Issac 09-30-2024 JANESSAN Telephone (JOSE A) -------- ROSY DOMINIQUE ([id number]) 3 F Date Time Provider Department 09/30/24 MPOWER AK JOSUE BECK AKELISE During your visit today, we recorded the following information about you: Allergies As of Date: 09/30/2024 Noted Allergy Reaction AMOXICILLIN 08/18/2022 2 - Rash 8 - GI Upset 16 - Unknown ANESTHETICS - AMIDE TYPE - SELECT*04/12/2024 14 - Other: See Comments BUPIVACAINE 08/23/2022 12 - Shortness of Breath CHLOROPROCAINE 08/23/2022 12 - Shortness of Breath COCONUT 06/14/2022 10 - Anaphylaxis 16 - Unknown DEXAMETHASONE 12/08/2022 9 - Itching HYDROCODONE 08/18/2022 9 - Itching 16 - Unknown LATEX 12/19/2021 14 - Other: See Comments 16 - Unknown LIDOCAINE 08/23/2022 12 - Shortness of Breath ONION EXTRACT 04/12/2024 14 - Other: See Comments VANCOMYCIN 08/20/2022 2 - Rash 14 - Other: See Comments VICODIN (HYDROCODONE-ACETAMINOPH E*08/18/2022 2 - Rash Date Reviewed: 09/28/2024 Reviewed by: Arpit Arteaga MA - Fully Assessed Prescriptions as of 09/30/2024 - ferrous sulfate (IRON) 325 mg (65 mg iron) tablet Take 1 tablet by mouth two times a day. - ondansetron orally disintegrating (ZOFRAN ODT) 4 mg disintegrating tablet Take 1 tablet by mouth every 8 hours as needed for nausea/vomiting. - NIFEdipine ER (PROCARDIA XL) 30 mg 24 hr tablet Take 1 tablet by mouth once daily. - gabapentin (NEURONTIN) 300 mg capsule Take 1 capsule by mouth three times a day for 90 days. - cyclobenzaprine (FLEXERIL) 10 mg tablet Take 0.5 tablets by mouth two times a day as needed. - vit calc,iron,folic (PRENAT.VITS,ANISH,MIN-IRO N-FOLIC ORAL) Take by mouth once daily. 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] 09/29/2018 05/26/2024 Nontoxic goiter, unspecified [E04.9] 04/09/2023 05/26/2024 Toxoplasmosis affecting [O98.619, B58*04/07/2024 04/26/2024 Threatened labor, antepartum [O47.00] 04/28/2022 06/24/2024 Seizure (HCC) [R56.9] 07/24/2023 Premature rupture of membranes [O42.90] 08/16/2022 04/26/2024 Palpitations [R00.2] 06/13/2023 05/26/2024 Cardiomyopathy (HCC) [I42.9] 04/07/2024 04/26/2024 Breech presentation [O32.1XX0] 08/16/2022 04/26/2024 Arthralgia of temporomandibular joint [M26.629] 04/30/2023 05/26/2024 Supervision of high risk in third tri*04/07/2024 History of delivery, currently *04/07/2024 with uncertain viability [O36.8*04/07/2024 04/26/2024 History of prior with small for gesta*04/07/2024 05/26/2024 History of [Z98.891] 04/07/2024 History of toxoplasmosis [Z86.19] 04/07/2024 05/26/2024 Antepartum diabetes mellitus [O24.919] 04/07/2024 04/26/2024 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] 04/07/2024 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] 04/07/2024 M-Power Referred [O99.891] 04/08/2024 Abdominal pain affecting [O26.899, R1*04/15/2024 09/15/2024 Headache in , second trimester [O26.89*05/24/2024 09/15/2024 Dizziness [R42] 05/24/2024 05/26/2024 Hx of impaired glucose tolerance [Z87.898] 05/26/2024 Previous baby with growth restriction [Z8*06/24/2024 POTS (postural orthostatic tachycardia syndrome*06/24/2024 Abdominal cramping [R10.9] 07/01/2024 08/22/2024 Decreased movements in second trimester [*07/28/2024 08/22/2024 Vaginal bleeding in , second trimester*07/29/2024 08/22/2024 Encounter for suspected premature rupture of am*08/17/2024 09/13/2024 27 weeks gestation of [Z3A.27] 08/22/2024 08/31/2024 Pelvic pain affecting [O26.899, R10.2]08/22/2024 30 weeks gestation of [Z3A.30] 09/13/2024 History of delivery [Z87.51] 09/14/2024 Vaginal bleeding in , third trimester *09/14/2024 contractions [O47.00] 09/15/2024 Prematurity [P07.30] 09/15/2024 Hx of antibiotic allergy [Z88.1] 09/15/2024 History of MRSA infection [Z86.14] 09/15/2024 Intact amniotic membranes during in t*09/17/2024 Bacterial vaginosis in [O23.599, B96.*09/21/2024 Vaginal bleeding during [O46.90] 09/21/2024 Encounter Status:Closed by KODAK MONTE on 09/30/24 Normal [facility] Examination level ultrasound on 09-28-2024 [facility] Radiology Study observation (narrative) [facility] UA DIP, URINE (POC)on 2023 BILIRUBIN UA (POCT) Negative Negative [facility] CLARITY UA (POCT) Clear [facility] COLOR UA (POCT) Yellow [facility] GLUCOSE UA (POCT) Negative Negative mg/dL [facility] Hemoglobin Ql (U) Negative Negative [facility] Interpretation and review of laboratory results Abnormal [facility] KETONE UA (POCT) Negative Negative mg/dL [facility] LEUKOCYTES UA (POCT) Small Abnormal Negative [facility] NITRITE UA (POCT) Negative Negative [facility] PH UA (POCT) 7.0 4.5 - 8.0 [facility] Protein Ql (U) Negative Negative mg/dL [facility] SPECIFIC GRAVITY UA (POCT) 1.020 1.005 - 1.030 [facility] UROBILINOGEN UA (POCT) 0.2 Normal E.U./dL [facility] Location:[address], [address] [place] [address] POINT OF CARE [facility] UA DIP, URINE (POC)on 2023 BILIRUBIN UA (POCT) Negative Negative [facility] CLARITY UA (POCT) Clear [facility] COLOR UA (POCT) Yellow [facility] GLUCOSE UA (POCT) Negative Negative mg/dL [facility] Hemoglobin Ql (U) Large Abnormal Negative [facility] Interpretation and review of laboratory results Abnormal [facility] KETONE UA (POCT) Negative Negative mg/dL [facility] LEUKOCYTES UA (POCT) Small Abnormal Negative [facility] NITRITE UA (POCT) Negative Negative [facility] PH UA (POCT) 7.5 4.5 - 8.0 [facility] Protein Ql (U) Negative Negative mg/dL [facility] SPECIFIC GRAVITY UA (POCT) 1.020 1.005 - 1.030 [facility] UROBILINOGEN UA (POCT) 0.2 Normal E.U./dL [facility] Location:[address], [address] [place] [address] POINT OF CARE [facility] OB Triage Physician Noteon 1 11-18-2023 OB Triage Physician Note [facility] Medical Records Department [address] [place] [address] OB Triage Physician Note 09/18/24 0707 MR#: [id number] Acct: [id number] Name: ROSY DOMINIQUE Rep #: [id number] : 2005 19 From: Akiko Bowling CNM PCP: Dr. Florentin Toribio DO Status:DEP CLI Y Location: [facility] HPI - General General Date of Service: 09/12/24 HPI Narrative ROSY DOMINIQUE, is a 19 F who presents at 30w1d with complaints of contractions. [facility] Medical History (Updated 09/14/24 @ 08:50 by Kristi Guadarrama, SCOTT) Low back pain during Diabetes type I Seasonal allergies Seizure Breast abscess Lump of breast Mastitis Breech presentation Premature rupture of membranes Toxoplasmosis affecting Positive GBS test Supervision of normal first teen POTS (postural orthostatic tachycardia syndrome) Home Medications ???Medication ???Instructions ???Recorded ???Last Taken ???Type PNV 153-FA 400 mcg-om3 35 mg-dha 1 tab PO DAILY 04/09/24 Unknown History 25 mg-epa 5 mg-fish oil chew tablet ferrous sulfate 325 mg (65 mg 325 mg PO DAILY 04/09/24 Unknown History iron) tablet (Feosol) Allergy/AdvReac Type Severity Reaction Status Date / Time amoxicillin Allergy Rash Verified 09/12/24 20:16 coconut Allergy Anaphylaxis Verified 09/12/24 20:16 dexmethylphenidate Allergy Itching Verified 09/12/24 20:16 hydrocodone Allergy Rash Verified 09/12/24 20:16 latex Allergy skin Verified 09/12/24 20:16 hayes, headaches onion Allergy Shortness Verified 09/12/24 20:16 of breath vancomycin Allergy Rash Verified 09/12/24 20:16 Anesthetics - Amide Type - AdvReac Severe Anaphylaxis Verified 09/12/24 20:16 Select A (anesthesia) Family History Mother POTS (postural orthostatic tachycardia syndrome) Autism Grandmother Breast cancer Thyroid disorder Skin cancer Sister Autism Son Autism Surgical History H/O laparoscopy Status post delivery Social History adopted: Yes household members: significant other, family and children number of children: 1 current occupational status: employed current occupation: [employer] pets and animals: Yes (Avoid litterbox) pets and animals: cat(s) and dog(s) history of recent travel: No sexually active: Yes Smoking Status: Former smoker quit date: 01/12/24 Electronic Cigarette Use: with nicotine alcohol intake: never substance use type: does not use well-balanced diet: daily or most days caffeine: Yes (not while ) Type: tea Number of servings: 1 eating out: rarely or never what type of physical activity do you participate in: none hayden/episcopalian: None seatbelt use: always do you feel safe at home: Yes 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 Date Name GA/Weeks Outcome Route Bth Weight Infant Gen Labor Lgth Anesthesia Del [facility] Provider FOB 06/14/22 Alice 31 live - 3lbs 14oz Male [facility] castillo Nicolas Delivery Date: 06/14/22 Last Updated by: Lou Garsia emergency section 31 wk breech, SROM NST FHR Rate Baby A Baseline: 130 Variability:: Moderate Accelerations:: 15 x 15 Decelerations:: Variable NST Reactive:: Yes Uterine Activity:: Irritability Assessment Plan (1) Hx of section: (2) Seizure disorder: (3) Type 1 diabetes: COMMENT: unsure this is correct. pt states that since she was 8 years old she was given the diagnosis of type 1 dm but does not take insulin. pt unabl to answer questions. ddx; type 2 dm or diabetes insipidus. She will sign a ror. (4) Autism: (5) Brugada syndrome: COMMENT: gets q 6 month echos at [facility]. referring to [facility] (6) Former smoker: COMMENT: Quit in January 2024 (7) Cardiomyopathy: PLAN: Plan 1) Uterine irritability, FFN sent and negative, no signs of PTL 2) Having some chest pressure and EKG completed 3) present on unit and asked to evaluate patient, seen at bedside and ok for D/C home 4) For chest pain, to go to ED if continues. 09/18/2410 Date Akiko Ayalaigner Signature (if applicable): Date CC: TERESA Bowling; Dr. Florentin Toribio, DO Signed Normal [facility] BACTERIAL VAGINOSIS NAATon 1 11-17-2023 Lactobacillus crispatus+gasseri+aretha senii + Gardnerella vaginalis + Atopobium vaginae rRNA ROWENA+probe Ql (Vag fld) Positive Abnormal Negative for bacterial vaginosis [facility] Comment on above: Order Comment: Speci men Type: SWAB Ordering Facility: [facility] Address: [address] [place] [address] Performed By: #### B VAMP #### [facility] CLIA [id number] [address] [place] [address] [place] C. trachomatis+N. gonorrhoea e DNA RWOENA+probe Ql (Unsp spec)on 09-17-2024 C. trachomatis rRNA ROWENA+probe Ql (Unsp spec) Negative Normal Negative for Chlamydia trachomatis by amplificaton [facility] Comment on above: Order Comment: Speci men Type: SWAB Ordering Facility: [facility] Address: [address] [place] [address] Performed By: #### T RVAMP, [id number] #### [facility] CLIA [id number] [address] [place] N. gonorrhoeae rRNA ROWENA+probe Ql (Unsp spec) Negative Normal Negative for Neisseria gonorrhoeae by amplification [facility] Comment on above: Order Comment: Speci men Type: SWAB Ordering Facility: [facility] Address: [address] [place] [address] Performed By: #### T RVAMP, 87547-4 #### [facility] CLIA [id number] [address] [place] TRICHOMONAS VAGINALIS NAATon 09-17-2024 T. vaginalis DNA ROWENA+probe Ql (Unsp spec) Negative Normal Negative for Trichomonas vaginalis by amplification [facility] Comment on above: Order Comment: Speci men Type: SWAB Ordering Facility: [facility] Address: [facility] [place] [address] Performed By: #### T RVAMP, 88907-3 #### [facility] CLIA [id number] [address] [place] Bacteria Ur Culton 4 Bacteria identified Cx Nom (U) CULTURE, URINE: No growth (<1,000 CFU/ml) Normal [facility] Comment on above: Performed By: #### 6 30-4 ####[facility] [id number] [address] [place] CNDSon 09-16-2024 CNDS HNO ID: [id number] Author: MATTHIAS GONZALEZ MD Service: Obstetrics Author Type: Resident Type: Discharge Summary Filed: 09/16/2024 17:07 Note Text: -------- Attestation signed by Matthias Gonzalez MD at 09/16/2024 5:07 PM MFM Attending Addendum: Please see EMR for comprehensive details of management and counseling. Matthias Gonzalez MD -------- DISCHARGE NOTE (Patient Admitted Less than 48 Hours) SERVICE DATE: 09/16/2024 SERVICE TIME: 4:58 PM ADMISSION DATE: 09/15/2024 DISCHARGE DISPOSITION: Home with Self Care DIET: Regular ACTIVITY AFTER DISCHARGE: Resume pre-hospital activity FOLLOW UP CARE REQUIRED: with regular OBGYN in 1 week DISCHARGE MEDICATIONS (ONLY ACTIVATE WHEN READY TO DISCHARGE): Medication List START taking these medications metroNIDAZOLE 500 mg tablet Commonly known as: FLAGYL Take 1 tablet by mouth every 12 hours for 7 days. CHANGE how you take these medications gabapentin 300 mg capsule Commonly known as: NEURONTIN Take 1 capsule by mouth three times a day for 90 days. What changed: when to take this reasons to take this CONTINUE taking these medications cyclobenzaprine 10 mg tablet Commonly known as: FLEXERIL Take 0.5 tablets by mouth two times a day as needed. ondansetron 4 mg tablet Commonly known as: ZOFRAN Take 1 tablet by mouth every 12 hours as needed for nausea/vomiting. PRENAT.VITS,ANISH,MIN-IRON -FOLIC ORAL STOP taking these medications alcohol swabs Commonly known as: ALCOHOL PREP PADS blood sugar diagnostic test strip Lancets Where to Get Your Medications These medications were sent to [id number] [place] [address] - [address] [place] [address] - [id number] [place] [id number] metroNIDAZOLE 500 mg tablet FINAL DIAGNOSIS: Active Hospital Problems as of 09/16/2024 Noted - Resolved POA Hospital History of 04/07/2024 - Present Yes History of MRSA infection 09/15/2024 - Present Yes History of delivery, currently in third trimester 04/07/2024 - Present Yes Hx of antibiotic allergy 09/15/2024 - Present Yes Prematurity 09/15/2024 - Present Yes * (Principal) contractions 09/15/2024 - Present Yes Seizure (HCC) 07/24/2023 - Present Yes 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 Please call TOMORROW to schedule follow up appointment for next week. Lucy Caballero DO PGY-2 Alma Minaya 09/17/2024 8:39 AM Signed Called patient X1, patient scheduled. Alma Minaya September 17, 2024 8:39 AM Allergies As of Date: 09/16/2024 Noted Allergy Reaction AMOXICILLIN 08/18/2022 2 - Rash 8 - GI Upset 16 - Unknown ANESTHETICS - AMIDE TYPE - SELECT*04/12/2024 14 - Other: See Comments BUPIVACAINE 08/23/2022 12 - Shortness of Breath CHLOROPROCAINE 08/23/2022 12 - Shortness of Breath COCONUT 06/14/2022 10 - Anaphylaxis 16 - Unknown DEXAMETHASONE 12/08/2022 9 - Itching HYDROCODONE 08/18/2022 9 - Itching 16 - Unknown LATEX 12/19/2021 14 - Other: See Comments 16 - Unknown LIDOCAINE 08/23/2022 12 - Shortness of Breath ONION EXTRACT 04/12/2024 14 - Other: See Comments VANCOMYCIN 08/20/2022 2 - Rash 14 - Other: See Comments VICODIN (HYDROCODONE-ACETAMINOPH E*08/18/2022 2 - Rash Date Reviewed: 09/15/2024 Reviewed by: Sonam Darnell, RN - Fully Assessed Reason for Visit: Appointment [[id number]] Prescriptions as of 09/17/2024 - metroNIDAZOLE (FLAGYL) 500 mg tablet Take 1 tablet by mouth every 12 hours for 7 days. - ondansetron (ZOFRAN) 4 mg tablet Take 1 tablet by mouth every 12 hours as needed for nausea/vomiting. - gabapentin (NEURONTIN) 300 mg capsule Take 1 capsule by mouth three times a day for 90 days. - cyclobenzaprine (FLEXERIL) 10 mg tablet Take 0.5 tablets by mouth two times a day as needed. - vit calc,iron,folic (PRENAT.VITS,ANISH,MIN-IRO N-FOLIC ORAL) Take by mouth once daily. 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.619, B58*04/07/2024 04/26/2024 Threatened labor, antepartum [O47.00] 04/28/2022 06/24/2024 Seizure (HCC) [R56.9] 07/24/2023 Premature rupture of membranes [O42.90] 08/16/2022 04/26/2024 Palpitations [R00.2] 06/13/2023 05/26/2024 Cardiomyopathy (HCC) [I42.9] 04/07/2024 04/26/2024 Breech presentation [O32.1XX0] 08/16/2022 04/26/2024 Arthralgia of temporomandibular joint [M26.629] 04/30/2023 05/26/2024 Supervision of high risk in third tri*04/07/2024 History of delivery, currently *04/07/2024 with uncertain viability [O36.8*04/07/2024 04/26/2024 History of prior with small for gesta*04/07/2024 05/26/2024 History of [Z98.891] 04/07/2024 History of toxoplasmosis [Z86.19] 04/07/2024 05/26/2024 Antepartum diabetes mellitus [O24.919] 04/07/2024 04/26/2024 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] 04/07/2024 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] 04/07/2024 M-Power Referred [O99.891] 04/08/2024 Abdominal pain affecting [O26.899, R1*04/15/2024 09/15/2024 Headache in , second trimester [O26.89*05/24/2024 09/15/2024 Dizziness [R42] 05/24/2024 05/26/2024 Hx of impaired glucose tolerance [Z87.898] 05/26/2024 Previous baby with growth restriction [Z8*06/24/2024 POTS (postural orthostatic tachycardia syndrome*06/24/2024 Abdominal cramping [R10.9] 07/01/2024 08/22/2024 Decreased movements in second trimester [*07/28/2024 08/22/2024 Vaginal bleeding in , second trimester*07/29/2024 08/22/2024 Encounter for suspected premature rupture of am*08/17/2024 09/13/2024 27 weeks gestation of [Z3A.27] 08/22/2024 08/31/2024 Pelvic pain affecting [O26.899, R10.2]08/22/2024 30 weeks gestation of [Z3A.30] 09/13/2024 History of delivery [Z87.51] 09/14/2024 Vaginal bleeding in , third trimester *09/14/2024 contractions [O47.00] 09/15/2024 Prematurity [P07.30] 09/15/2024 Hx of antibiotic allergy [Z88.1] 09/15/2024 History of MRSA infection [Z86.14] 09/15/2024 Encounter Status:Closed by LUCY CABALLERO on 09/16/24 [facility] NURSING PROGon 09-16-2024 NURSING PROG HNO ID: [id number] Author: LOU CISSE RN Service: ? Author Type: Registered Nurse Type: Nursing Progress Note Filed: 09/16/2024 20:43 Note Text: Pt was rechecked without change in cervix. Pt given 2nd dose of betamethasone at 1930. Pt denies vaginally bleeding, loss of fluid. Reports positive movement. Pt discharge instructions reviewed and questions asked and answered. IV removed and pt discharged home with father of baby. Normal [facility] NURSING PROG HNO ID: [id number] Author: BC FERMIN, RN Service: Nursing Author Type: Registered Nurse Type: Nursing Progress Note Filed: 09/16/2024 14:18 Note Text: Pt c/o increased pain with contractions and leaking fluid. EFM on. Dr. Caballero notified. SSE done. Normal [facility] URINALYSIS, REFLEX MICROSCOP ICon 09-16-2024 Bilirubin Ql (U) Negative Normal Negative [facility] Comment on above: Order Comment: Speci men Type: SWAB Ordering Facility: [facility] Address: [address] [place] [address] Performed By: #### T RVAMP, 05710-2 #### [facility] CLIA [id number] [address] [place] Clarity (Unsp spec) Turbid Abnormal Clear [facility] Comment on above: Order Comment: Speci men Type: SWAB Ordering Facility: [facility] Address: [address] [place] [address] Performed By: #### T RVAMP, 73467-8 #### [facility] CLIA [id number] [address] [place] [address] [place] Color (U) Colorless Normal yellow [facility] Comment on above: Order Comment: Speci men Type: SWAB Ordering Facility: [facility] Address: [address] [place] [address] Performed By: #### T RVAMP, 16726-4 #### [facility] CLIA [id number] [address] [place] Epithelial cells LM.HPF (Urine sed) [#/Area] Few Normal [facility] Comment on above: Order Comment: Speci men Type: SWAB Ordering Facility: [facility] Address: [address] [place] [address] Result Comment: Few Performed By: #### T RVAMP, 56383-7 #### [facility] CLIA [id number] [address] Glucose Test strip (U) [Mass/Vol] Negative Normal Trace, Negative [facility] Comment on above: Order Comment: Speci men Type: SWAB Ordering Facility: [facility] Address: [facility] [place] [address] Performed By: #### T RVAMP, 36868-7 #### [facility] CLIA [id number] [address] Hemoglobin Ql (U) 2+ Abnormal Negative, Trace [facility] Comment on above: Order Comment: Speci men Type: SWAB Ordering Facility: [facility] Address: [address] [place] [address] Performed By: #### T RVAMP, 65616-3 #### [facility] CLIA [id number] [address] Hyaline casts (Urine sed) [#/Area] 1-3 /LPF Abnormal 0 /LPF [facility] Comment on above: Order Comment: Speci men Type: SWAB Ordering Facility: [facility] Address: [address] [place] [address] Performed By: #### T RVAMP, 07736-5 #### [facility] CLIA [id number] [address] Ketones Ql (U) 2+ Abnormal Negative, Trace [facility] Comment on above: Order Comment: Speci men Type: SWAB Ordering Facility: [facility] Address: [address] [place] [address] Performed By: #### T RVAMP, 86605-4 #### [facility] CLIA [id number] [address] Leukocyte esterase Test strip Ql (U) 250 Trisha/uL Abnormal Negative, 25 Trisha/uL [facility] Comment on above: Order Comment: Speci men Type: SWAB Ordering Facility: [facility] Address: [address] [place] [address] Performed By: #### T RVAMP, 21871-3 #### [facility] CLIA [id number] [address] Nitrite Ql (U) Negative Normal Negative [facility] Comment on above: Order Comment: Speci men Type: SWAB Ordering Facility: [facility] Address: [address] [place] [address] Performed By: #### T RVAMP, 50724-6 #### [facility] CLIA [id number] [address] pH (U) 7.0 [pH] Normal 5.0-8.0 [facility] Comment on above: Order Comment: Speci men Type: SWAB Ordering Facility: [facility] Address: [address] [place] [address] Performed By: #### T RVAMP, 31672-5 #### [facility] CLIA [id number] [address] Protein (U) [Mass/Vol] Negative Normal Trace, Negative [facility] Comment on above: Order Comment: Speci men Type: SWAB Ordering Facility: [facility] Address: [address] [place] [address] Performed By: #### T RVAMP, 24421-2 #### [facility] CLIA [id number] [address] RBC LM.HPF (Urine sed) [#/Area] 6-10 /HPF Abnormal 0-3 /HPF [facility] Comment on above: Order Comment: Speci men Type: SWAB Ordering Facility: [facility] Address: [address] [place] [address] Performed By: #### T RVAMP, 84537-0 #### [facility] CLIA [id number] [address] [place] Specific gravity (U) [Rel density] 1.004 Low 1.005-1.030 [facility] Comment on above: Order Comment: Speci men Type: SWAB Ordering Facility: [facility] Address: [address] [place] [address] Performed By: #### T RVAMP, 90469-7 #### [facility] CLIA [id number] [address] STATES OF [facility] Urobilinogen Ql (U) Normal Normal Normal [facility] Comment on above: Order Comment: Speci men Type: SWAB Ordering Facility: [facility] Address: [address] [place] [address] Performed By: #### T RVAMP, 09188-3 #### [facility] CLIA [id number] [address] STATES OF [facility] WBC LM.HPF (Urine sed) [#/Area] 0-5 /HPF Normal 0-5 /HPF [facility] Comment on above: Order Comment: Speci men Type: SWAB Ordering Facility: [facility] Address: [address] [place] [address] Performed By: #### T RVAMP, 36527-8 #### [facility] CLIA [id number] [address] OF [facility] BACTERIAL VAGINOSIS NAATon 1 11-15-2023 Lactobacillus crispatus+gasseri+aretha senii + Gardnerella vaginalis + Atopobium vaginae rRNA ROWENA+probe Ql (Vag fld) Negative Normal Negative for bacterial vaginosis [facility] Comment on above: Order Comment: Speci men Type: SWAB Ordering Facility: [facility] Address: [address] [place] [address] Performed By: #### B VAMP #### [facility] CLIA [id number] [address] [place], [place] [address] [place] C. trachomatis+N. gonorrhoea e DNA ROWENA+probe Ql (Unsp spec)on 09-15-2024 C. trachomatis rRNA ROWENA+probe Ql (Unsp spec) Negative Normal Negative for Chlamydia trachomatis by amplificaton [facility] Comment on above: Order Comment: Speci men Type: SWAB Ordering Facility: [facility] Address: [address] [place] [address] Performed By: #### T RVAMP, 57164-8 #### [facility] CLIA [id number] [address] N. gonorrhoeae rRNA ROEWNA+probe Ql (Unsp spec) Negative Normal Negative for Neisseria gonorrhoeae by amplification [facility] Comment on above: Order Comment: Speci men Type: SWAB Ordering Facility: [facility] Address: [address] [place] [address] Performed By: #### T RVAMP, 33860-4 #### [facility] CLIA [id number] [address] CBC W Auto Differential pane l (Bld)on 09-15-2024 Basophils (Bld) [#/Vol] 10*3/uL Normal <0.11 [facility] Comment on above: Order Comment: Speci men Type: SWAB Ordering Facility: [facility] Address: [address] [place] [address] Performed By: #### T RVAMP, 91421-3 #### [facility] CLIA [id number] [address] Basophils/100 WBC (Bld) 0.1 % Normal [facility] Comment on above: Order Comment: Speci men Type: SWAB Ordering Facility: [facility] Address: [address] [place] [address] Performed By: #### T RVAMP, 46817-8 #### [facility] CLIA [id number] [address] Differential cell count method Nom (Bld) Auto Normal [facility] Comment on above: Order Comment: Speci men Type: SWAB Ordering Facility: [facility] Address: [address] [place] [address] Performed By: #### T RVAMP, 08050-7 #### [facility] CLIA [id number] [address] Eosinophils (Bld) [#/Vol] 0.06 10*3/uL Normal <0.46 [facility] Comment on above: Order Comment: Speci men Type: SWAB Ordering Facility: [facility] Address: [address] [place] [address] Performed By: #### T RVAMP, 29810-9 #### [facility] CLIA [id number] [address] [place] Eosinophils/100 WBC (Bld) 0.7 % Normal [facility] Comment on above: Order Comment: Speci men Type: SWAB Ordering Facility: [facility] Address: [address] [place] [address] Performed By: #### T RVAMP, 65606-7 #### [facility] CLIA [id number] [address] Erythrocyte distribution width (RBC) [Ratio] 12.6 % Normal 11.5-15.0 [facility] Comment on above: Order Comment: Speci men Type: SWAB Ordering Facility: [facility] Address: [address] [place] [address] Performed By: #### T RVAMP, 19209-3 #### [facility] CLIA [id number] [address] [place] Hematocrit (Bld) [Volume fraction] 31.6 % Low 36.0-46.0 [facility] Comment on above: Order Comment: Speci men Type: SWAB Ordering Facility: [facility] Address: [address] [place] [address] Performed By: #### T RVAMP, 09214-4 #### [facility] CLIA [id number] [address] [place] Hemoglobin (Bld) [Mass/Vol] 10.4 g/dL Low 11.5-15.5 [facility] Comment on above: Order Comment: Speci men Type: SWAB Ordering Facility: [facility] Address: [facility] [place] [address] Performed By: #### T RVAMP, 47233-4 #### [facility] CLIA [id number] [address] [place] Immature granulocytes (Bld) [#/Vol] 0.09 10*3/uL Normal <0.10 [facility] Comment on above: Order Comment: Speci men Type: SWAB Ordering Facility: [facility] Address: [address] [place] [address] Performed By: #### T RVAMP, 35257-3 #### [facility] CLIA [id number] [address] Immature granulocytes/100 WBC (Bld) 1.0 % Normal [facility] Comment on above: Order Comment: Speci men Type: SWAB Ordering Facility: [facility] Address: [address] [place] [address] Performed By: #### T RVAMP, 62815-2 #### [facility] CLIA [id number] [address] Lymphocytes (Bld) [#/Vol] 1.97 10*3/uL Normal 1.00-4.00 [facility] Comment on above: Order Comment: Speci men Type: SWAB Ordering Facility: [facility] Address: [address] [place] [address] Performed By: #### T RVAMP, 44888-4 #### [facility] CLIA [id number] [address] Lymphocytes/100 WBC (Bld) 21.5 % Normal [facility] Comment on above: Order Comment: Speci men Type: SWAB Ordering Facility: [facility] Address: [address] [place] [address] Performed By: #### T RVAMP, 25335-9 #### [facility] CLIA [id number] [address] [place] MCH (RBC) [Entitic mass] 28.5 pg Normal 26.0-34.0 [facility] Comment on above: Order Comment: Speci men Type: SWAB Ordering Facility: [facility] Address: [address] [place] [address] Performed By: #### T RVAMP, 93876-8 #### [facility] CLIA [id number] [address] MCHC (RBC) [Mass/Vol] 32.9 g/dL Normal 30.5-36.0 [facility] Comment on above: Order Comment: Speci men Type: SWAB Ordering Facility: [facility] Address: [address] [place] [address] Performed By: #### T RVAMP, 06559-0 #### [facility] CLIA [id number] [address] MCV (RBC) [Entitic vol] 86.6 fL Normal 80.0-100.0 [facility] Comment on above: Order Comment: Speci men Type: SWAB Ordering Facility: [facility] Address: [address] [place] [address] Performed By: #### T RVAMP, 26914-1 #### [facility] CLIA [id number] [address] Monocytes (Bld) [#/Vol] 0.64 10*3/uL Normal <0.87 [facility] Comment on above: Order Comment: Speci men Type: SWAB Ordering Facility: [facility] Address: [address] [place] [address] Performed By: #### T RVAMP, 07100-1 #### [facility] CLIA [id number] [address] Monocytes/100 WBC (Bld) 7.0 % Normal [facility] Comment on above: Order Comment: Speci men Type: SWAB Ordering Facility: [facility] Address: [address] [place] [address] Performed By: #### T RVAMP, 43681-9 #### [facility] CLIA [id number] [address] Neutrophils (Bld) [#/Vol] 6.41 10*3/uL Normal 1.45-7.50 [facility] Comment on above: Order Comment: Speci men Type: SWAB Ordering Facility: [facility] Address: [address] [place] [address] Performed By: #### T RVAMP, 61657-0 #### [facility] CLIA [id number] [address] Neutrophils/100 WBC (Bld) 69.7 % Normal [facility] Comment on above: Order Comment: Speci men Type: SWAB Ordering Facility: [facility] Address: [address] [place] [address] Performed By: #### T RVAMP, 39618-3 #### [facility] CLIA [id number] [address] [place] Nucleated RBC (Bld) [#/Vol] 10*3/uL Normal <0.01 [facility] Comment on above: Order Comment: Speci men Type: SWAB Ordering Facility: [facility] Address: [address] [place] [address] Performed By: #### T RVAMP, 47511-1 #### [facility] CLIA [id number] [address] STATES OF [facility] Nucleated RBC/100 WBC (Bld) [Ratio] 0.0 /100 WBC Normal [facility] Comment on above: Order Comment: Speci men Type: SWAB Ordering Facility: [facility] Address: [address] [place] [address] Performed By: #### T RVAMP, 10382-0 #### [facility] CLIA [id number] [address] [place] Platelet mean volume (Bld) [Entitic vol] 11.0 fL Normal 9.0-12.7 [facility] Comment on above: Order Comment: Speci men Type: SWAB Ordering Facility: [facility] Address: [address] [place] [address] Performed By: #### T RVAMP, 10048-4 #### [facility] CLIA [id number] [address] [place] Platelets (Bld) [#/Vol] 217 10*3/uL Normal 150-400 [facility] Comment on above: Order Comment: Speci men Type: SWAB Ordering Facility: [facility] Address: [address] [place] [address] Performed By: #### T RVAMP, 39382-9 #### [facility] CLIA [id number] [address] RBC (Bld) [#/Vol] 3.65 10*6/uL Low 3.90-5.20 [facility] Comment on above: Order Comment: Speci men Type: SWAB Ordering Facility: [facility] Address: [address] [place] [address] Performed By: #### T RVAMP, 32951-2 #### [facility] CLIA [id number] [address] WBC (Bld) [#/Vol] 9.18 10*3/uL Normal 3.70-11.00 [facility] Comment on above: Order Comment: Speci men Type: SWAB Ordering Facility: [facility] Address: [address] [place] [address] Performed By: #### T RVAMP, 14777-8 #### [facility] CLIA [id number] [address] CONSULTon 09-15-2024 CONSULT HNO ID: [id number] Author: JAZMYN BLACK MD Service: Neonatology Author Type: Physician Type: Consults Filed: 09/15/2024 21:28 Note Text: NEONATOLOGY CONSULT SERVICE DATE: 09/15/2024 Admission Date: 09/15/2024 SERVICE TIME: 9 pm Date of : 2005 Age: [age] year old Sex: female Primary Care Physician: Connor Martini DO Consulting Receiving Barn Custodian: Jazmyn Blakc MD Subjective Consultation for this evaluation was requested by Dr. Smith. Reason for consultation: 19 year old female, , who is at 30w4d with vaginal bleeding, uterine contractions, Hx of delivery, seizure and C/S Recommendations will be communicated back to the requesting physician by way of shared medical record or letter. Objective MATERNAL HISTORY: Mother is a 20 year old female, , who is at 30w4d with an SCOTT of 11/20/2024, by Last Menstrual Period dating method. LMP: Patient's last menstrual period was 02/14/2024. 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 Current Outpatient Medications on File Prior to Encounter Medication Sig ondansetron (ZOFRAN) 4 mg tablet Take 1 tablet by mouth every 12 hours as needed for nausea/vomiting. vit calc,iron,folic (PRENAT.VITS,ANISH,MIN-IRO N-FOLIC ORAL) Take by mouth once daily. gabapentin (NEURONTIN) 300 mg capsule Take 1 capsule by mouth three times a day for 90 days. (Patient taking differently: Take 300 mg by mouth as needed.) cyclobenzaprine (FLEXERIL) 10 mg tablet Take 0.5 tablets by mouth two times a day as needed. blood sugar diagnostic test strip Use as directed to check glucose levels up to seven times daily. Lancets Use as directed to check glucose levels up to seven times daily. alcohol swabs (ALCOHOL PREP PADS) Use as directed to check glucose levels up to seven times daily. Current Facility-Administered Medications Medication Dose Route Frequency acetaminophen 1,000 mg tab(s) (TYLENOL) 1,000 mg ORAL Pre-Op PRN sodium citrate-citric acid 500-334 mg/5 mL 30 mL oral liquid (BICITRA) 30 mL ORAL Pre-Op PRN metoclopramide HCl 10 mg injection (REGLAN) 10 mg INTRAVENOUS Pre-Op PRN NaCl 0.9% iv flush bag 20 mL INTRAVENOUS PRN lactated ringers iv infusion 75 mL/hr INTRAVENOUS CONTINUOUS betamethasone acetate-betamethasone sodium phosphate 12 mg injection (CELESTONE) 12 mg INTRAMUSCULAR q 24 HR acetaminophen 1,000 mg tab(s) (TYLENOL) 1,000 mg ORAL q 6 H PRN ceFAZolin iv piggyback 2 g in D5W (iso-osmotic) 100 mL (ANCEF) 2 g INTRAVENOUS Pre-Op PRN azithromycin 500 mg in D5W 250 mL Vial-Bag (ZITHROMAX) 500 mg INTRAVENOUS Pre-Op PRN magnesium sulfate 20 gram/500mL iv 2 g/hr INTRAVENOUS CONTINUOUS calcium gluconate 1 g injection 1 g INTRAVENOUS PRN clindamycin iv piggyback 900 mg in D5W 50 mL (CLEOCIN) 900 mg INTRAVENOUS Pre-Op PRN gentamicin 340 mg in D5W 100 mL 340 mg INTRAVENOUS Pre-Op PRN ondansetron (PF) 4 mg injection (ZOFRAN) 4 mg INTRAVENOUS q 6 H PRN ceFAZolin iv piggyback 1 g in D5W (iso-osmotic) 50 mL (ANCEF) 1 g INTRAVENOUS q 8 HR complications: labor, vaginal bleeding The following was discussed with mother GENERAL: Neonatology presence and role at delivery: Yes Possible need for resuscitation: Yes DNR status: Full resuscitation requested Need for admission to NICU: Yes Offered tour of NICU: Yes Discharge criteria: Yes Survival odds/morbidity AND mortality: Yes RESPIRATORY Risk of RDS/breathing problems: Yes Possible need for respiratory support: Yes CARDIOVASCULAR Discussed Hypotension, potential medical treatment: Yes Other (e.g. congenital heart disease): Yes NEUROLOGIC Risk of IVH/Neuro developmental delays: Yes Discussed need for evaluation by Shipyard Supervisor for ROP: Yes Discussed risk for hearing deficit: Yes FEN Mother?s Preference: Breast: Yes. Benefits of breast milk: Yes Bottle: Yes Need for supplemental nutrition and/or IVFs: Yes INFECTION Risk factors for infection- congenital and nosocomial: Yes Need to start antibiotics: Yes HEME Possible need for blood transfusion: Yes. Verbal consent obtained: No ACCESS Possible need for UAC/UVC/PICC: Yes. Verbal consent obtained: No MISC. Name if Digester Capper, if known: Unknown, please contact patient's p (more content not included)... Normal [facility] HISTORY PHYSICALon 4 HISTORY PHYSICAL HNO ID: [id number] Author: MATTHIAS GONZALEZ MD Service: Obstetrics Author Type: Resident Type: H&P Filed: 09/16/2024 09:11 Note Text: -------- Attestation signed by Matthias Gonzalez MD at 09/16/2024 9:11 AM (Updated) MFM Attending Addendum: I have seen, evaluated and counseled the above patient with Dr. Caballero and the antepartum team. I reviewed the documentation and agree with the clinical assessment and medical decision making as noted above with the following addendum/modifications: 19 year old at 30w5d admitted to the antepartum service with threatened PTL. She was admitted after presenting with contractions over the past few days and made change from close to 1 cm by serial SVE. On admission status was reassuring and a course of ANCS, magnesium for neuroprotection, and antibiotics for GBS prophylaxis were initiated, and she was admitted to antepartum for ongoing management. Patient known to me from recent CardioOB visit (see consult note 07/01/24 for details). Her OB history is notable for a in 2021 complicated by PPROM and FGR, with delivery at ~31 weeks by LTCD secondary to non-reassuring FHR (birthweight 3#14). 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 Remainder of history/details of course as above. This morning she reported a mild headache and nausea, otherwise reported feeling well. Reports she still has irregular abdominal pain/cramping and some bloody show. She reported normal FM and denied LOF, VB, or abdominal pain. ROS otherwise negative. BP 97/56 Pulse 76 Temp 36.9 ?C (98.4 ?F) (Oral) Resp 16 Ht 175.3 cm (5' 9) Wt 67.6 kg (149 lb) LMP 02/14/2024 SpO2 98% BMI 22.00 kg/m? Systolic (24hrs), Av , Min:88 , Max:118 Diastolic (24hrs), Av, Min:52, Max:75 Mucous membranes moist, sclerae anicteric. Abdomen soft, non-distended, uterus/abdomen non-tender, no rebound. Extremities non-tender, no edema. EFM reviewed - baseline 120, moderate variability, +accelerations, no decelerations. Tocometer with irregular uterine activity. Data/labs - reviewed in EMR Impression: Ruffin gestation at 30w5d Threatened PTL - stable History of PPROM/PTD at ~31 weeks (PPROM) Plan: and maternal status stable/reassuring without clinical e/o progressive PTL, PPROM, abruption or Pre-E. Recommend ongoing observation and management of threatened PTL. Patient has completed magnesium for neuroprotection and is completing a course of ANCS. An overview of outcomes at 30-34 weeks gestation was provided and the gestational age related risks of prematurity were reviewed. Appreciate neonatology consultation - patient without additional questions regarding prematurity this morning. Reviewed that if /maternal status remain reassuring today, plan for discharge home after second dose of ACNS this evening. Reviewed recommendation for short-interval follow-up in outpatient primary OB office (within the next week). OB precautions, PTB precautions, and FM expectations were reviewed. Treat headache and nausea as needed. Encouraged ambulation, SCDs in bed. /maternal indications for delivery were reviewed. The plan of care was reviewed and discussed with the patient and the provider/nursing teams. All questions answered. Ms. Dominique expressed understanding and agreement with the plan of care. Matthias Gonzalez MD -------- OBSTETRICS HISTORY AND PHYSICAL SERVICE DATE: September 15, 2024 SERVICE TIME: 7:28 PM Subjective Patient's stated reason for arrival: ctx,vb HISTORY OF THE PRESENT ILLNESS: The patient is a 19 year old female, , who is at 30w4d with an SCOTT of 11/20/2024, by Last Menstrual Period dating method. Patient is admitted for threatened labor with worsening painful, regular contractions over the past 3 days with associated cervical change and bloody show. Good movement. Denies leaking of fluid. Her is otherwise complicated by history of delivery at 31 weeks for PPROM in setting of breech presentation. Patient with history of MRSA infection of her breast following last delivery. Developed vancomycin allergy at that time. Patient denies history of HSV. Denies any alcohol, tobacco, or recreational drug use in this . POST DELIVERY CONTRACEPTION: Discussed post-delivery contraception options. Patient desires contraception after her first period after delivery. HISTORY REVIEW PAST MEDICAL HISTORY Diagnosis Date Brugada syndrome Chronic daily headache Complication of anesthesia Diabetes, gestational POTS (postural orthostatic tachycardia syndrome) Seizure (HCC) Thyroid disease Trauma PAST (more content not included)... Normal [facility] ROUTINE, GROUP B ST REP PCRon 09-15-2024 ROUTINE, GROUP B STREP PCR GROUP B STREP PCR: Negative for Group B Streptococcus by PCR. Normal [facility] Comment on above: Performed By: #### G BPCR ####[facility] [id number] [place] [address] [place] Reagin and Treponema pallidu m IgG and IgM [Interp]on 09-15-2024 T. pallidum IgG+IgM IA Ql (S) Non-Reactive Normal Nonreactive [facility] Comment on above: Order Comment: Speci men Type: SWAB Ordering Facility: [facility] Address: [address] [place] [address] Performed By: #### T RVAMP, 16042-7 #### [facility] CLIA [id number] [address] [place] [address] [place] Reagin+T pallidum IgG+IgM Se rPl-Impon 09-15-2024 Reagin and Treponema pallidum IgG and IgM [Interp] Cannot exclude recent Treponemal infection if specimen collected within 7-10 days after appearance of suspect lesions or 2-3 weeks after an exposure. Clinical correlation is required. Normal [facility] Comment on above: Order Comment: Speci men Type: SWAB Ordering Facility: [facility] Address: [address] [place] [address] Performed By: #### T RVAMP, 75469-6 #### [facility] CLIA [id number] [address] OF [facility] TRICHOMONAS VAGINALIS NAATon 09-15-2024 T. vaginalis DNA ROWENA+probe Ql (Unsp spec) Negative Normal Negative for Trichomonas vaginalis by amplification [facility] Comment on above: Order Comment: Speci men Type: SWAB Ordering Facility: [facility] Address: [address] [place] [address] Performed By: #### T RVAMP, 19974-4 #### [facility] CLIA [id number] [address] TYPE + SCREEN PRENATALon ABO AB Normal [facility] Comment on above: Order Comment: Speci men Type: BLOOD SPECIMEN Ordering Facility: [facility] Address: [address] [place] [address] Performed By: #### T SPN #### [facility] CLIA [id number] [address] Rh Nom (Bld) Positive Normal [facility] Comment on above: Order Comment: Speci men Type: BLOOD SPECIMEN Ordering Facility: [facility] Address: [address] [place] [address] Performed By: #### T SPN #### [facility] CLIA [id number] [address] OF [facility] TYPE AND SCREEN EXPIRATION 09/18/2024 23:59 Normal [facility] Comment on above: Order Comment: Speci men Type: BLOOD SPECIMEN Ordering Facility: [facility] Address: [address] [place] [address] Performed By: #### T SPN #### [facility] CLIA [id number] [address] [place] [address] [place] UA DIP, URINE (POC)on 2023 BILIRUBIN UA (POCT) Negative Negative [facility] CLARITY UA (POCT) Clear [facility] COLOR UA (POCT) Yellow [facility] GLUCOSE UA (POCT) Negative Negative mg/dL [facility] Hemoglobin Ql (U) Trace-intact Abnormal Negative [facility] Interpretation and review of laboratory results Abnormal [facility] KETONE UA (POCT) Negative Negative mg/dL [facility] LEUKOCYTES UA (POCT) Small Abnormal Negative [facility] NITRITE UA (POCT) Negative Negative [facility] PH UA (POCT) 7.0 4.5 - 8.0 [facility] Protein Ql (U) Negative Negative mg/dL [facility] SPECIFIC GRAVITY UA (POCT) 1.010 1.005 - 1.030 [facility] UROBILINOGEN UA (POCT) 0.2 Normal E.U./dL [facility] Location:[facility]ly [facility], [facility], [address] [place] [address], [address] [place] [address] POINT OF CARE [facility] Urinalysis complete panel (U )on 09-13-2024 Bacteria LM.HPF (Urine sed) [#/Area] Few Abnormal None Seen [facility] Comment on above: Order Comment: Speci men Type: SWAB Ordering Facility: [facility] Address: [address] [place] [address] Performed By: #### T RVAMP, 46477-1 #### [facility] CLIA [id number] [address] [place] Bilirubin Ql (U) Negative Normal Negative [facility] Comment on above: Order Comment: Speci men Type: SWAB Ordering Facility: [facility] Address: [address] [place] [address] Performed By: #### T RVAMP, 39358-1 #### [facility] CLIA [id number] [address] [place] Clarity (Unsp spec) Turbid Abnormal Clear [facility] Comment on above: Order Comment: Speci men Type: SWAB Ordering Facility: [facility] Address: [address] [place] [address] Performed By: #### T RVAMP, 81297-8 #### [facility] CLIA [id number] [address] Color (U) Colorless Normal yellow [facility] Comment on above: Order Comment: Speci men Type: SWAB Ordering Facility: [facility] Address: [address] [place] [address] Performed By: #### T RVAMP, 09980-8 #### [facility] CLIA [id number] [address] Epithelial cells LM.HPF (Urine sed) [#/Area] Few Normal [facility] Comment on above: Order Comment: Speci men Type: SWAB Ordering Facility: [facility] Address: [facility] [place] [address] Performed By: #### T RVAMP, 21209-3 #### [facility] CLIA [id number] [address] Glucose Test strip (U) [Mass/Vol] Negative Normal Trace, Negative [facility] Comment on above: Order Comment: Speci men Type: SWAB Ordering Facility: [facility] Address: [address] [place] [address] Performed By: #### T RVAMP, 09528-7 #### [facility] CLIA [id number] [address] Hemoglobin Ql (U) Trace Normal Negative, Trace [facility] Comment on above: Order Comment: Speci men Type: SWAB Ordering Facility: [facility] Address: [address] [place] [address] Performed By: #### T RVAMP, 06738-1 #### [facility] CLIA [id number] [address] [place] Ketones Ql (U) Negative Normal Negative, Trace [facility] Comment on above: Order Comment: Speci men Type: SWAB Ordering Facility: [facility] Address: [address] [place] [address] Performed By: #### T RVAMP, 30136-6 #### [facility] CLIA [id number] [address] [place] [address] Leukocyte esterase Test strip Ql (U) 25 Trisha/uL Normal Negative, 25 Trisha/uL [facility] Comment on above: Order Comment: Speci men Type: SWAB Ordering Facility: [facility] Address: [address] [place] [address] Performed By: #### T RVAMP, 82031-3 #### [facility] CLIA [id number] [address] Nitrite Ql (U) Negative Normal Negative [facility] Comment on above: Order Comment: Speci men Type: SWAB Ordering Facility: [facility] Address: [address] [place] [address] Performed By: #### T RVAMP, 79578-3 #### [facility] CLIA [id number] [address] pH (U) 7.0 [pH] Normal 5.0-8.0 [facility] Comment on above: Order Comment: Speci men Type: SWAB Ordering Facility: [facility] Address: [address] [place] [address] Performed By: #### T RVAMP, 64093-0 #### [facility] CLIA [id number] [address] Protein (U) [Mass/Vol] Negative Normal Trace, Negative [facility] Comment on above: Order Comment: Speci men Type: SWAB Ordering Facility: [facility] Address: [address] [place] [address] Performed By: #### T RVAMP, 90160-0 #### [facility] CLIA [id number] [address] RBC LM.HPF (Urine sed) [#/Area] 3-5 /HPF Abnormal 0-3 /HPF [facility] Comment on above: Order Comment: Speci men Type: SWAB Ordering Facility: [facility] Address: [address] [place] [address] Performed By: #### T RVAMP, 43846-9 #### [facility] CLIA [id number] [address] STATES [facility] Specific gravity (U) [Rel density] 1.012 Normal 1.005-1.030 [facility] Comment on above: Order Comment: Speci men Type: SWAB Ordering Facility: [facility] Address: [address] [place] [address] Performed By: #### T RVAMP, 89477-4 #### [facility] CLIA [id number] [address] OF [facility] Urobilinogen Ql (U) Normal Normal Normal [facility] Comment on above: Order Comment: Speci men Type: SWAB Ordering Facility: [facility] Address: [address] [place] [address] Performed By: #### T RVAMP, 30094-8 #### [facility] CLIA [id number] [address] WBC LM.HPF (Urine sed) [#/Area] 0-5 /HPF Normal 0-5 /HPF [facility] Comment on above: Order Comment: Speci men Type: SWAB Ordering Facility: [facility] Address: [address] [place] [address] Performed By: #### T RVAMP, 32565-6 #### [facility] CLIA [id number] [address] OF [facility] 12 Lead EKGon 09-12-2024 12 Lead EKG [facility] [address] [place] [address] 12 Lead EKG 09/12/24 1731 MR#: [id number] Acct: [id number] Name: ROSY DOMINIQUE LAILA Rep #: [id number] : 2005 19 From: Jesus Manuel Self MD Attending Dr: Akiko Bowling CNM Status: DEP CL I Ordering Dr: Akiko Bowling CNM Date: 09/12/24 Location: [facility] Sex: F C Admitted: Test Reason : CP Blood Pressure : */* mmHG Vent. Rate : 85 BPM Atrial Rate : 85 BPM P-R Int : 124 ms QRS Dur : 100 ms QT Int : 366 ms P-R-T Axes : 55 21 31 degrees QTcB Int : 435 ms Normal sinus rhythm RSR' or QR pattern in V1 suggests right ventricular conduction delay Borderline ECG When compared with ECG of 09-Jun-2023 00:44, No significant change was found Confirmed by Jesus Manuel Self ([id number]), brands editor KELLEY SEYMOUR ([id number]) on 09/14/2024 9:26:48 AM Referred By: Akiko Bowling Confirmed By: Jesus Manuel Self 09/14/24 0926 Date Jesus Manuel Self MD CC: CNZonia Bowling; Dr. Florentin Toribio DO Signed Normal [facility] Fibronectinon 09-12-20 24 fFIBRONECTIN Negative Normal [facility] Comment on above: Performed By: #### L 205.0000 #### [facility] [address] [place], [address] CNOVon 09-04-2024 CNOV Office Visit (EXPKEN ) -------- ROSY DOMINIQUE ([id number]) 3 F Date Time Provider Department 09/04/24 9:25 AM JESSICA WHITMAN EXPKEN During your visit today, we recorded the following information about you: Temperature Pulse Respiration Blood pressure 98.1 degrees 98/minute 20/minute 103/69 Jessica Whitman PA-C 09/04/2024 10:27 AM Signed ASSESSMENT/PLAN: 1. Dentalgia - ICD9: 525.9, ICD10: K08.89 - start antibiotics today - follow up with your dentist in the next 1-2 weeks - can use over the counter anbesol for pain relief. - take tylenol for pain every 4 hours - do not exceed 3,000 gm per day - Go to the Emergency Department if you develop fever, facial swelling, redness, warmth, difficulty swallowing or breathing or any other concerns. LUZ Bennett Karen, PA-C 09/04/2024 10:42 AM Signed Subjective 19 y/o female Pt is 29 wks . She c/o toothache for the past several days. She denies fever, chills, facial swelling, nausea or vomiting. No recent dental work. 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 Using tylenol at home with little improvement The history is provided by the patient. Dental Problem Pertinent negatives include no chills, congestion, coughing, fever, headaches, myalgias, nausea, sore throat, vomiting or weakness. Review of Systems Constitutional: Negative for chills and fever. HENT: Negative for congestion, ear pain, sinus pain and sore throat. Respiratory: Negative for cough. Gastrointestinal: Negative for nausea and vomiting. Musculoskeletal: Negative for myalgias. Neurological: Negative for dizziness, weakness and headaches. Psychiatric/Behavioral: The patient is not nervous/anxious. Objective BP 103/69 (BP Site: Right Arm, BP Position: Sitting, BP Cuff Size: Regular Adult) Pulse 98 Temp 36.7 ?C (98.1 ?F) (Oral) Resp 20 LMP 02/14/2024 SpO2 98% Physical Exam Vitals and nursing note reviewed. Constitutional: General: She is not in acute distress. Appearance: Normal appearance. She is not ill-appearing. HENT: Head: Normocephalic. Jaw: There is normal jaw occlusion. No trismus, tenderness, swelling or pain on movement. Mouth/Throat: Lips: [place]. Mouth: Mucous membranes are moist. No oral lesions. Dentition: Dental caries present. No dental tenderness, gingival swelling or dental abscesses. Pharynx: Oropharynx is clear. Uvula midline. No uvula swelling. Musculoskeletal: Cervical back: Normal range of motion and neck supple. Lymphadenopathy: Cervical: No cervical adenopathy. Skin: General: Skin is warm and dry. Findings: No erythema. Neurological: Mental Status: She is alert and oriented to person, place, and time. Psychiatric: Mood and Affect: Mood and affect normal. Behavior: Behavior normal. Thought Content: Thought content normal. Cognition and Memory: Memory normal. Judgment: Judgment normal. ASSESSMENT/PLAN: 1. Dentalgia - ICD9: 525.9, ICD10: K08.89 - start antibiotics today - follow up with your dentist in the next 1-2 weeks - can use over the counter anbesol for pain relief. - take tylenol for pain every 4 hours - do not exceed 3,000 gm per day - Go to the Emergency Department if you develop fever, facial swelling, redness, warmth, difficulty swallowing or breathing or any other concerns. Jessica Whitman PA-C Allergies As of Date: 09/04/2024 Noted Allergy Reaction AMOXICILLIN 08/18/2022 2 - Rash 8 - GI Upset 16 - Unknown ANESTHETICS - AMIDE TYPE - SELECT*04/12/2024 14 - Other: See Comments BUPIVACAINE 08/23/2022 12 - Shortness of Breath CHLOROPROCAINE 08/23/2022 12 - Shortness of Breath COCONUT 06/14/2022 10 - Anaphylaxis 16 - Unknown DEXAMETHASONE 12/08/2022 9 - Itching HYDROCODONE 08/18/2022 9 - Itching 16 - Unknown LATEX 12/19/2021 14 - Other: See Comments 16 - Unknown LIDOCAINE 08/23/2022 12 - Shortness of Breath ONION EXTRACT 04/12/2024 14 - Other: See Comments VANCOMYCIN 08/20/2022 2 - Rash 14 - Other: See Comments VICODIN (HYDROCODONE-ACETAMINOPH E*08/18/2022 2 - Rash Date Reviewed: 09/04/2024 Reviewed by: Diane Dockery RN - Fully Assessed Reason for Visit: Dental Problem [31] Cmt: Patient is 29 weeks , here with complaint of dental pain to the lower right mid jaw for the last three days. Primary Visit Diagnosis:Dentalgia [K08.89] Order(s):cephALEXin (KEFLEX) 500 mg capsuleTake 1 capsule by mouth four times daily for 5 days.Disp: 20 capsuleRfl: 0 Prescriptions as of 09/04/2024 - cephALEXin (KEFLEX) 500 mg capsule Take 1 capsule by mouth four times daily for 5 days. - gabapentin (NEURONTIN) 300 mg capsule Take 1 capsule by mouth three times a day for 90 days. - cyclobenzaprine (FLEXERIL) 10 mg tablet Take 0.5 tablets by mouth two times a day as needed. - blood sugar diagnostic test strip (more content not included)... Normal [facility] CNPNon 09-01-2024 [facility] -------- ROSY DOMINIQUE ([id number]) 3 F Date Time Provider Department 09/01/24 ANTHONY COOK During your visit today, we recorded the following information about you: Fe Payan RN 09/01/2024 1:10 PM Signed Breastpump order signed and faxed to Hitesh Jensen with successful transmission. Allergies As of Date: 09/01/2024 Noted Allergy Reaction AMOXICILLIN 08/18/2022 2 - Rash 8 - GI Upset 16 - Unknown ANESTHETICS - AMIDE TYPE - SELECT*04/12/2024 14 - Other: See Comments BUPIVACAINE 08/23/2022 12 - Shortness of Breath CHLOROPROCAINE 08/23/2022 12 - Shortness of Breath COCONUT 06/14/2022 10 - Anaphylaxis 16 - Unknown DEXAMETHASONE 12/08/2022 9 - Itching HYDROCODONE 08/18/2022 9 - Itching 16 - Unknown LATEX 12/19/2021 14 - Other: See Comments 16 - Unknown LIDOCAINE 08/23/2022 12 - Shortness of Breath ONION EXTRACT 04/12/2024 14 - Other: See Comments VANCOMYCIN 08/20/2022 2 - Rash 14 - Other: See Comments VICODIN (HYDROCODONE-ACETAMINOPH E*08/18/2022 2 - Rash Date Reviewed: 08/31/2024 Reviewed by: Hayden Walters LPN - Fully Assessed Reason for Visit: Orders [971] Cmt: Breast pump prescription Prescriptions as of 09/01/2024 - gabapentin (NEURONTIN) 300 mg capsule Take 1 capsule by mouth three times a day for 90 days. - cyclobenzaprine (FLEXERIL) 10 mg tablet Take 0.5 tablets by mouth two times a day as needed. - blood sugar diagnostic test strip Use as directed to check glucose levels up to seven times daily. - Lancets Use as directed to check glucose levels up to seven times daily. - alcohol swabs (ALCOHOL PREP PADS) Use as directed to check glucose levels up to seven times daily. - vit calc,iron,folic (PRENAT.VITS,ANISH,MIN-IRO N-FOLIC ORAL) Take by mouth once daily. 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*04/07/2024 04/26/2024 Threatened labor, antepartum [O47.00] 04/28/2022 06/24/2024 Seizure (HCC) [R56.9] 07/24/2023 Premature rupture of membranes [O42.90] 08/16/2022 04/26/2024 Palpitations [R00.2] 06/13/2023 05/26/2024 Cardiomyopathy (HCC) [I42.9] 04/07/2024 04/26/2024 Breech presentation [O32.1XX0] 08/16/2022 04/26/2024 Arthralgia of temporomandibular joint [M26.629] 04/30/2023 05/26/2024 Supervision of high risk in third tri*04/07/2024 History of delivery, currently *04/07/2024 with uncertain viability [O36.8*04/07/2024 04/26/2024 History of prior with small for gesta*04/07/2024 05/26/2024 History of [Z98.891] 04/07/2024 History of toxoplasmosis [Z86.19] 04/07/2024 05/26/2024 Antepartum diabetes mellitus [O24.919] 04/07/2024 04/26/2024 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] 04/07/2024 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] 04/07/2024 [facility] Referred [O99.891] 04/08/2024 Abdominal pain affecting [O26.899, R1*04/15/2024 08/22/2024 Headache in , second trimester [O26.89*05/24/2024 Dizziness [R42] 05/24/2024 05/26/2024 Hx of impaired glucose tolerance [Z87.898] 05/26/2024 Previous baby with growth restriction [Z8*06/24/2024 POTS (postural orthostatic tachycardia syndrome*06/24/2024 Abdominal cramping [R10.9] 07/01/2024 08/22/2024 Decreased movements in second trimester [*07/28/2024 08/22/2024 Vaginal bleeding in , second trimester*07/29/2024 08/22/2024 Encounter for suspected premature rupture of am*08/17/2024 27 weeks gestation of [Z3A.27] 08/22/2024 08/31/2024 Pelvic pain affecting [O26.899, R10.2]08/22/2024 Encounter Status:Closed by FE PAYAN on 09/01/24 Normal [facility] Examination level ultrasound on 09-01-2024 [facility] Radiology Study observation (narrative) [facility] UA DIP, URINE (POC)on 2023 BILIRUBIN UA (POCT) Negative Negative [facility] CLARITY UA (POCT) Clear [facility] COLOR UA (POCT) Yellow [facility] GLUCOSE UA (POCT) Negative Negative mg/dL [facility] Hemoglobin Ql (U) Negative Negative [facility] Interpretation and review of laboratory results Abnormal [facility] KETONE UA (POCT) Negative Negative mg/dL [facility] LEUKOCYTES UA (POCT) Small Abnormal Negative [facility] NITRITE UA (POCT) Negative Negative [facility] PH UA (POCT) 7.0 4.5 - 8.0 [facility] Protein Ql (U) Negative Negative mg/dL [facility] SPECIFIC GRAVITY UA (POCT) 1.015 1.005 - 1.030 [facility] UROBILINOGEN UA (POCT) 0.2 Normal E.U./dL [facility] Location:Formerly [facility], [facility], [address] [place] [address], [address] [place] [address] POINT OF CARE [facility] C. trachomatis+N. gonorrhoea e DNA ROWENA+probe Ql (Unsp spec)on 08-22-2024 C. trachomatis rRNA ROWENA+probe Ql (Unsp spec) Negative Normal Negative for Chlamydia trachomatis by amplificaton [facility] Comment on above: Order Comment: Speci men Type: SWAB Ordering Facility: [facility] Address: [address] [place] [address] Performed By: #### T RVAMP, 65705-3 #### [facility] CLIA [id number] [address] [place] [address] N. gonorrhoeae rRNA ROWENA+probe Ql (Unsp spec) Negative Normal Negative for Neisseria gonorrhoeae by amplification [facility] Comment on above: Order Comment: Speci men Type: SWAB Ordering Facility: [facility] Address: [address] [place] [address] Performed By: #### T RVAMP, 79616-5 #### [facility] CLIA [id number] [address] TRICHOMONAS VAGINALIS NAATon 08-22-2024 T. vaginalis DNA ROWENA+probe Ql (Unsp spec) Negative Normal Negative for Trichomonas vaginalis by amplification [facility] Comment on above: Order Comment: Speci men Type: SWAB Ordering Facility: [facility] Address: [address] [place] [address] Performed By: #### T RVAMP, 73088-5 #### [facility] CLIA [id number] [address] [place] CBC panel Auto (Bld)on 08-17 Erythrocyte distribution width (RBC) [Ratio] 12.5 % 11.5 - 15.0 % [facility] Hematocrit (Bld) [Volume fraction] 33.7 % Low 36.0 - 46.0 % [facility] Hemoglobin (Bld) [Mass/Vol] 11.2 g/dL Low 11.5 - 15.5 g/dL [facility] Interpretation and review of laboratory results Abnormal [facility] MCH (RBC) [Entitic mass] 29.8 pg 26.0 - 34.0 pg [facility] MCHC (RBC) [Mass/Vol] 33.2 g/dL 30.5 - 36.0 g/dL [facility] MCV (RBC) [Entitic vol] 89.6 fL 80.0 - 100.0 fL [facility] Nucleated RBC (Bld) [#/Vol] NINF [facility] Platelet mean volume (Bld) [Entitic vol] 11.5 fL 9.0 - 12.7 fL [facility] Platelets (Bld) [#/Vol] 208 10*3/uL [facility] RBC (Bld) [#/Vol] 3.76 10*6/uL Low 3.90 - 5.2 0 m/uL [facility] WBC (Bld) [#/Vol] 7.52 10*3/uL [facility] Erythrocyte distribution width (RBC) [Ratio] 12.5 % Normal 11.5-15.0 [facility] Comment on above: Order Comment: Speci men Type: BLOOD SPECIMEN Ordering Facility: [facility] Address: [address] [place] [address] Performed By: #### 5 8410-2 #### [facility] CLIA [id number] [address] [place] Hematocrit (Bld) [Volume fraction] 33.7 % Low 36.0-46.0 [facility] Comment on above: Order Comment: Speci men Type: BLOOD SPECIMEN Ordering Facility: [facility] Address: [address] [place] [address] Performed By: #### 5 8410-2 #### [facility] CLIA [id number] 1 [place] [address] [place] Hemoglobin (Bld) [Mass/Vol] 11.2 g/dL Low 11.5-15.5 [facility] Comment on above: Order Comment: Speci men Type: BLOOD SPECIMEN Ordering Facility: [facility] Address: [address] [place] [address] Performed By: #### 5 8410-2 #### [facility] CLIA [id number] [address] MCH (RBC) [Entitic mass] 29.8 pg Normal 26.0-34.0 [facility] Comment on above: Order Comment: Speci men Type: BLOOD SPECIMEN Ordering Facility: [facility] Address: [address] [place] [address] Performed By: #### 5 8410-2 #### [facility] CLIA [id number] [address] MCHC (RBC) [Mass/Vol] 33.2 g/dL Normal 30.5-36.0 [facility] Comment on above: Order Comment: Speci men Type: BLOOD SPECIMEN Ordering Facility: [facility] Address: [address] [place] [address] Performed By: #### 5 8410-2 #### [facility] CLIA [id number] [address] MCV (RBC) [Entitic vol] 89.6 fL Normal 80.0-100.0 [facility] Comment on above: Order Comment: Speci men Type: BLOOD SPECIMEN Ordering Facility: [facility] Address: [address] [place] [address] Performed By: #### 5 8410-2 #### [facility] CLIA [id number] [address] Nucleated RBC (Bld) [#/Vol] 10*3/uL Normal <0.01 [facility] Comment on above: Order Comment: Speci men Type: BLOOD SPECIMEN Ordering Facility: [facility] Address: [address] [place] [address] Performed By: #### 5 8410-2 #### [facility] CLIA [id number] [address] Platelet mean volume (Bld) [Entitic vol] 11.5 fL Normal 9.0-12.7 [facility] Comment on above: Order Comment: Speci men Type: BLOOD SPECIMEN Ordering Facility: [facility] Address: [address] [place] [address] Performed By: #### 5 8410-2 #### [facility] CLIA [id number] [address] [place] Platelets (Bld) [#/Vol] 208 10*3/uL Normal 150-400 [facility] Comment on above: Order Comment: Speci men Type: BLOOD SPECIMEN Ordering Facility: [facility] Address: [address] [place] [address] Performed By: #### 5 8410-2 #### [facility] CLIA [id number] [address] STATES [facility] RBC (Bld) [#/Vol] 3.76 10*6/uL Low 3.90-5.20 [facility] Comment on above: Order Comment: Speci men Type: BLOOD SPECIMEN Ordering Facility: [facility] Address: [address] [place] [address] Performed By: #### 5 8410-2 #### [facility] CLIA [id number] [address] WBC (Bld) [#/Vol] 7.52 10*3/uL Normal 3.70-11.00 [facility] Comment on above: Order Comment: Speci men Type: BLOOD SPECIMEN Ordering Facility: [facility] Address: [address] [place] [address] Performed By: #### 5 8410-2 #### [facility] CLIA [id number] [address] [place] GESTATIONAL GLUCOSE SCREEN, 1-HOUR, 50 GRAM, NON-FASTINGon 08-17-2024 Glucose 1 Hr post 50 g glucose PO [Mass/Vol] 85 mg/dL 74 - 134 mg/dL [facility] Comment on above: [place] [employer]st[employer] and Gynec[employer] (Boles/Coustan) guidelines state a gestational diabetes mellitus positive screen is made, in women not previously diagnosed with overt diabetes, when the 1 hr plasma glucose level is equal to or above 140 mg/dL. The [facility] [employer] Instructor and [facility] [place] recommends a 135 mg/dL cutoff. Interpretation and review of laboratory results Normal [facility] Glucose 1 Hr post 50 g glucose PO [Mass/Vol] 85 mg/dL Normal 74-134 [facility] Comment on above: Order Comment: Speci men Type: SWAB Ordering Facility: [facility] Address: [address] [place] [address] Result Comment: [facility] Congress of Obstetricians and Gynecologists (Elvi/Jose Rafael) guidelines state a gestational diabetes mellitus positive screen is made, in women not previously diagnosed with overt diabetes, when the 1 hr plasma glucose level is equal to or above 140 mg/dL. The [facility] [employer] Network[employer] Instructor and [facility] [place] recommends a 135 mg/dL cutoff. Performed By: #### T RVAMP, 81622-0 #### [facility] CLIA [id number] [address] [place] [address] [place] Reagin and Treponema pallidu m IgG and IgM [Interp]on 08-17-2024 T. pallidum IgG+IgM IA Ql (S) Non-Reactive Normal Nonreactive [facility] Comment on above: Order Comment: Arden roman Type: SWAB Ordering Facility: [facility] Address: [address] [place] [address] Performed By: #### T RVAMP, 46436-1 #### [facility] CLIA [id number] [address] [place] [address] [place] Reagin+T pallidum IgG+IgM Se rPl-Impon 08-17-2024 Reagin and Treponema pallidum IgG and IgM [Interp] Cannot exclude recent Treponemal infection if specimen collected within 7-10 days after appearance of suspect lesions or 2-3 weeks after an exposure. Clinical correlation is required. Normal [facility] Comment on above: Order Comment: Speci men Type: SWAB Ordering Facility: [facility] Address: [address] [place] [address] Performed By: #### T RVAMP, 12127-0 #### [facility] CLIA [id number] [address] [place] [address] [place] UA DIP, URINE (POC)on 2023 BILIRUBIN UA (POCT) Negative Negative [facility] CLARITY UA (POCT) Clear [facility] COLOR UA (POCT) Yellow [facility] GLUCOSE UA (POCT) Negative Negative mg/dL [facility] Hemoglobin Ql (U) Negative Negative [facility] KETONE UA (POCT) Negative Negative mg/dL [facility] LEUKOCYTES UA (POCT) Negative Negative [facility] NITRITE UA (POCT) Negative Negative [facility] PH UA (POCT) 7.0 4.5 - 8.0 [facility] Protein Ql (U) Negative Negative mg/dL [facility] SPECIFIC GRAVITY UA (POCT) 1.020 1.005 - 1.030 [facility] UROBILINOGEN UA (POCT) 0.2 Normal E.U./dL [facility] Location:[address], [address] [place] [address] POINT OF CARE [facility] OB Triage Physician Noteon 0 08-01-2024 OB Triage Physician Note [facility] Medical Records Department [address] [place] [address] OB Triage Physician Note 08/01/24 1115 MR#: [id number] Acct: [id number] Name: ROSY DOMINIQUE Rep #: [id number] : 2005 19 From: Etelvina Costa MD PCP: Dr. Florentin Toribio, DO Status:DEP CLI Y Location: [facility] - General General Date of Admission: 08/01/24 Date of Service: 08/01/24 Chief Complaint: cramping HPI Narrative ROSY DOMINIQUE, is a 19 F who presents cramping and pain back. No bleeding or leaking. Did have intercourse in the last 24 hours. After reviewed EPIC chart patient has had ongoing complaints of back pain and cramping. Is a MFM patient in [place]. Cervical length on 07/30 was 36.6 mm. Growth and fluid normal. Occasional contractions on toco. Doppler normal FHR. Maternal Data Information SCOTT Calculator Estimated Delivery Date Method Current WG Current Estimate 11/20/24 Ultrasound #1 24w 1d Final SCOTT: 11/20/24 Gestational age: 24+1 PFSH PFS Medical History Diabetes type I Seasonal allergies Seizure Breast abscess Lump of breast Mastitis Breech presentation Premature rupture of membranes Toxoplasmosis affecting Positive GBS test Supervision of normal first teen POTS (postural orthostatic tachycardia syndrome) Home Medications ???Medication ???Instructions ???Recorded ???Last Taken ???Type PNV 153-FA 400 mcg-om3 35 mg-dha 1 tab PO DAILY 04/09/24 Unknown History 25 mg-epa 5 mg-fish oil chew tablet ferrous sulfate 325 mg (65 mg 325 mg PO DAILY 04/09/24 Unknown History iron) tablet (Feosol) Allergy/AdvReac Type Severity Reaction Status Date / Time amoxicillin Allergy Rash Verified 08/01/24 09:13 coconut Allergy Anaphylaxis Verified 08/01/24 09:13 dexmethylphenidate Allergy Itching Verified 08/01/24 09:13 hydrocodone Allergy Rash Verified 08/01/24 09:13 latex Allergy skin Verified 08/01/24 09:13 hayes, headaches onion Allergy Shortness Verified 08/01/24 09:13 of breath vancomycin Allergy Rash Verified 08/01/24 09:13 Anesthetics - Amide Type - AdvReac Severe Anaphylaxis Verified 08/01/24 09:13 Select A (anesthesia) Family History Mother POTS (postural orthostatic tachycardia syndrome) Autism Grandmother Breast cancer Thyroid disorder Skin cancer Sister Autism Son Autism Surgical History H/O laparoscopy Status post delivery Social History adopted: Yes household members: significant other, family and children number of children: 1 current occupational status: employed current occupation: [employer] pets and animals: Yes (Avoid litterbox) pets and animals: cat(s) and dog(s) history of recent travel: No sexually active: Yes Smoking Status: Former smoker quit date: 01/12/24 Electronic Cigarette Use: with nicotine alcohol intake: never substance use type: does not use well-balanced diet: daily or most days caffeine: Yes (not while ) Type: tea Number of servings: 1 eating out: rarely or never what type of physical activity do you participate in: none hayden/episcopalian: None seatbelt use: always do you feel safe at home: Yes 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 Date Name GA/Weeks Outcome Route Bth Weight Gen Labor Lgth Anesthesia Del Locatn Provider FOB 06/14/22 Kyson 31 live - 3lbs 14oz Male [facility] V castillo Nicolas Delivery Date: 06/14/22 Last Updated by: Lou Garsia emergency section 31 wk breech, SROM Visit Details OB Flowsheet Initial Weight: Not Recorded Date -???-???-???-???-???-??? -???-???-???-???-???-??? - EGA Weight BP Urine Prot -???-???-???-???-???-??? -???-???-???-???-???-??? - Glucose FHR FuHt Pres Dilation -???-???-???-???-???-??? -???-???-???-???-???-??? - Effaced St Visit Note 04/12/24 -???-???-???-???-???-??? -???-???-???-???-???-??? - 8w 2d 57.663 kg 110/75 -???-???-???-???-???-??? -???-???-???-???-???-??? - 151 -???-???-???-???-???-??? -???-???-???-???-???-??? - JV- CRL luc ures 7 weeks 2 days. heart tones present. GS present and normal yolk sac. declines NIPT. will refer to [facility] for delivery and management due to multple medical problems including rare heart condition. Physical Exam Const alert, oriented x3 and no apparent distress General Appearance: cooperative and comfortable HEENT (more content not included)... Normal [facility] Urinalysis, Completeon 08-01 AMORPHOUS 1+ Normal [facility] Comment on above: Order Comment: CLEAN CATCH Performed By: #### L 400.0001 #### [facility] [address] [place], [address] EPI,SQUAMOUS 10-25 SEEN Normal 5-10 [facility] Comment on above: Order Comment: CLEAN CATCH Performed By: #### L 400.0001 #### [facility] [address] [place], [address] BACTERIA 0 SEEN Normal None Seen [facility] Comment on above: Order Comment: CLEAN CATCH Performed By: #### L 400.0001 #### [facility] [address] [place], [address] Mucus Ql (Urine sed) 0 SEEN Normal [facility] Comment on above: Order Comment: CLEAN CATCH Performed By: #### L 400.0001 #### [facility] [address] [place], [address] RBC 0 SEEN Normal 0-5 [facility] Comment on above: Order Comment: CLEAN CATCH Performed By: #### L 400.0001 #### [facility] [address] [place], [address] WBC 0 SEEN Normal 0-5 [facility] Comment on above: Order Comment: CLEAN CATCH Performed By: #### L 400.0001 #### [facility] [address] [place], [address] Examination level ultrasound on 07-30-2024 Indication Cervical length. History of PTB 31 weeks Impression - The patient presents for TVS for cervical length measurement to assess the patient's risk for . - Single, live, intrauterine . - Normal amniotic fluid volume. - Placenta is anterior. - The cervical length measures 36.6 mm with no evidence of funneling or other dynamic changes. Recommendations Additional follow-up as clinically indicated. Maternal Assessment Height 175 cm Height (ft) 5 ft Height (in) 9 in Physical Exam Initial weight (lb) 120 lb Initial BMI 17.72 kg/m Growth Overview Exam date GA BPD (mm) HC (mm) AC (mm) FL (mm) HL (mm) EFW (g) 06/24/2024 18w 5d 41 38% 149.1 25% 125.3 27% 24.1 11% 25.4 24% 209 7% 07/15/2024 21w 5d 48.7 14% 184.4 24% 172.6 59% 34.6 38% 429 33% Method Transabdominal and transvaginal ultrasound examination. View: Adequate visualization Ruffin . Number of fetuses: 1 Dating GA by prior assessment 23 w + 6 d SCOTT by prior assessment: 11/20/2024 Assigned: based on stated SCOTT, selected on 05/11/2024 Assigned GA 23 w + 6 d Assigned SCOTT: 11/20/2024 General Evaluation Cardiac activity present. FHR 149 bpm. movements: present. Presentation: cephalic Placenta: Placental site: anterior Amniotic fluid: Amount of AF: normal amount. MVP 4.7 cm Maternal Structures Uterus / Cervix Uterus length 37 mm Approach: Transvaginal Cervical length 36.6 mm Cervical length (2) 41.0 mm Funneling: Funneling absent Performed By: Bernarda Hancock RDMS Read By: Randal Hamilton D.O. MATERNAL MEDICINE [facility] Radiology Study observation (narrative) [facility] UA DIP, URINE (POC)on 2023 BILIRUBIN UA (POCT) Negative Negative [facility] CLARITY UA (POCT) Clear [facility] COLOR UA (POCT) Yellow [facility] GLUCOSE UA (POCT) Negative Negative mg/dL [facility] Hemoglobin Ql (U) Trace-intact Abnormal Negative [facility] Interpretation and review of laboratory results Abnormal [facility] KETONE UA (POCT) Negative Negative mg/dL [facility] LEUKOCYTES UA (POCT) Small Abnormal Negative [facility] NITRITE UA (POCT) Negative Negative [facility] PH UA (POCT) 7.0 4.5 - 8.0 [facility] Protein Ql (U) Negative Negative mg/dL [facility] SPECIFIC GRAVITY UA (POCT) 1.020 1.005 - 1.030 [facility] UROBILINOGEN UA (POCT) 0.2 Normal E.U./dL [facility] Location:[facility], [facility], [address] [place] [address], [address] [place] [address] POINT OF CARE [facility] CNPNon 07-17-2024 CNPN Telephone (AKPOB) -------- ROSY DOMINIQUE ([id number]) 3 F Date Time Provider Department 07/17/24 RJ LINARES During your visit today, we recorded the following information about you: Rj Linares MD 07/17/2024 7:25 PM Signed Patient called after-hours line asking for allergy medication safe in . Typically takes benadryl, claritin, or zyrtec. Discussed these are all safe. Can also take cold medication, however instructed to avoid, decongestants or medications labeled DM or PM. No further questions. Rj Linares MD Allergies As of Date: 07/17/2024 Noted Allergy Reaction AMOXICILLIN 08/18/2022 2 - Rash 8 - GI Upset 16 - Unknown ANESTHETICS - AMIDE TYPE - SELECT*04/12/2024 14 - Other: See Comments BUPIVACAINE 08/23/2022 12 - Shortness of Breath CHLOROPROCAINE 08/23/2022 12 - Shortness of Breath COCONUT 06/14/2022 10 - Anaphylaxis 16 - Unknown DEXAMETHASONE 12/08/2022 9 - Itching HYDROCODONE 08/18/2022 9 - Itching 16 - Unknown LATEX 12/19/2021 14 - Other: See Comments 16 - Unknown LIDOCAINE 08/23/2022 12 - Shortness of Breath ONION EXTRACT 04/12/2024 14 - Other: See Comments VANCOMYCIN 08/20/2022 2 - Rash 14 - Other: See Comments VICODIN (HYDROCODONE-ACETAMINOPH E*08/18/2022 2 - Rash Date Reviewed: 07/11/2024 Reviewed by: Zina Lamb LPN - Fully Assessed Reason for Visit: Returning Patient's Call [[phone]] Prescriptions as of 07/17/2024 - mupirocin (BACTROBAN) 2 % ointment Apply to affected area three times a day for 10 days. - gabapentin (NEURONTIN) 300 mg capsule Take 1 capsule by mouth three times a day for 90 days. - cyclobenzaprine (FLEXERIL) 10 mg tablet Take 0.5 tablets by mouth two times a day as needed. - blood sugar diagnostic test strip Use as directed to check glucose levels up to seven times daily. - Lancets Use as directed to check glucose levels up to seven times daily. - alcohol swabs (ALCOHOL PREP PADS) Use as directed to check glucose levels up to seven times daily. - vit calc,iron,folic (PRENAT.VITS,ANISH,MIN-IRO N-FOLIC ORAL) Take by mouth once daily. 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*04/07/2024 04/26/2024 Threatened labor, antepartum [O47.00] 04/28/2022 06/24/2024 Seizure (HCC) [R56.9] 07/24/2023 Premature rupture of membranes [O42.90] 08/16/2022 04/26/2024 Palpitations [R00.2] 06/13/2023 05/26/2024 Cardiomyopathy (HCC) [I42.9] 04/07/2024 04/26/2024 Breech presentation [O32.1XX0] 08/16/2022 04/26/2024 Arthralgia of temporomandibular joint [M26.629] 04/30/2023 05/26/2024 Encounter for supervision of high risk young mu*04/07/2024 History of delivery, currently *04/07/2024 with uncertain viability [O36.8*04/07/2024 04/26/2024 History of prior with small for gesta*04/07/2024 05/26/2024 History of [Z98.891] 04/07/2024 History of toxoplasmosis [Z86.19] 04/07/2024 05/26/2024 Antepartum diabetes mellitus [O24.919] 04/07/2024 04/26/2024 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] 04/07/2024 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] 04/07/2024 [employer] Referred [O99.891] 04/08/2024 Abdominal pain during in first trimes*04/15/2024 Headache in , second trimester [O26.89*05/24/2024 Dizziness [R42] 05/24/2024 05/26/2024 Hx of impaired glucose tolerance [Z87.898] 05/26/2024 growth restriction antepartum [O36.5990] 06/24/2024 POTS (postural orthostatic tachycardia syndrome*06/24/2024 Abdominal cramping [R10.9] 07/01/2024 Encounter Status:Closed by RJ LINARES on 07/17/24 [facility] 07-16-2024 CNPN Telephone ([facility]) -------- ROSY DOMINIQUE ([id number]) 3 F Date Time Provider Department 07/16/24 SCOTT HOANG During your visit today, we recorded the following information about you: Fe Payan RN 07/16/2024 3:05 PM Signed Patient called in to check on the results of a UA that was done on 07/14/24 at [facility] in [place]. The results are available and patient would like to know what they are. She states that she was supposed to be Mycharted with them, she is currently active. Fe Payan RN 07/19/2024 11:17 AM Signed Attempted to contact patient, but her phone is no longer in service. Spoke with Rogelio patients contact, asking patient to contact the office at [phone] Fe Payan RN 07/19/2024 11:39 AM Signed Patient updated on the response from Dr Hoang [facility] and culture results. Patient in agreement and has no additional questions or concerns at this time. Allergies As of Date: 07/16/2024 Noted Allergy Reaction AMOXICILLIN 08/18/2022 2 - Rash 8 - GI Upset 16 - Unknown ANESTHETICS - AMIDE TYPE - SELECT*04/12/2024 14 - Other: See Comments BUPIVACAINE 08/23/2022 12 - Shortness of Breath CHLOROPROCAINE 08/23/2022 12 - Shortness of Breath COCONUT 06/14/2022 10 - Anaphylaxis 16 - Unknown DEXAMETHASONE 12/08/2022 9 - Itching HYDROCODONE 08/18/2022 9 - Itching 16 - Unknown LATEX 12/19/2021 14 - Other: See Comments 16 - Unknown LIDOCAINE 08/23/2022 12 - Shortness of Breath ONION EXTRACT 04/12/2024 14 - Other: See Comments VANCOMYCIN 08/20/2022 2 - Rash 14 - Other: See Comments VICODIN (HYDROCODONE-ACETAMINOPH E*08/18/2022 2 - Rash Date Reviewed: 07/11/2024 Reviewed by: Zina Lamb LPN - Fully Assessed Reason for Visit: Patient Question [9597] Prescriptions as of 07/19/2024 - mupirocin (BACTROBAN) 2 % ointment Apply to affected area three times a day for 10 days. - gabapentin (NEURONTIN) 300 mg capsule Take 1 capsule by mouth three times a day for 90 days. - cyclobenzaprine (FLEXERIL) 10 mg tablet Take 0.5 tablets by mouth two times a day as needed. - blood sugar diagnostic test strip Use as directed to check glucose levels up to seven times daily. - Lancets Use as directed to check glucose levels up to seven times daily. - alcohol swabs (ALCOHOL PREP PADS) Use as directed to check glucose levels up to seven times daily. - vit calc,iron,folic (PRENAT.VITS,ANISH,MIN-IRO N-FOLIC ORAL) Take by mouth once daily. 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*04/07/2024 04/26/2024 Threatened labor, antepartum [O47.00] 04/28/2022 06/24/2024 Seizure (HCC) [R56.9] 07/24/2023 Premature rupture of membranes [O42.90] 08/16/2022 04/26/2024 Palpitations [R00.2] 06/13/2023 05/26/2024 Cardiomyopathy (HCC) [I42.9] 04/07/2024 04/26/2024 Breech presentation [O32.1XX0] 08/16/2022 04/26/2024 Arthralgia of temporomandibular joint [M26.629] 04/30/2023 05/26/2024 Encounter for supervision of high risk young mu*04/07/2024 History of delivery, currently *04/07/2024 with uncertain viability [O36.8*04/07/2024 04/26/2024 History of prior with small for gesta*04/07/2024 05/26/2024 History of [Z98.891] 04/07/2024 History of toxoplasmosis [Z86.19] 04/07/2024 05/26/2024 Antepartum diabetes mellitus [O24.919] 04/07/2024 04/26/2024 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] 04/07/2024 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] 04/07/2024 M-Power Referred [O99.891] 04/08/2024 Abdominal pain during in first trimes*04/15/2024 Headache in , second trimester [O26.89*05/24/2024 Dizziness [R42] 05/24/2024 05/26/2024 Hx of impaired glucose tolerance [Z87.898] 05/26/2024 growth restriction antepartum [O36.5990] 06/24/2024 POTS (postural orthostatic tachycardia syndrome*06/24/2024 Abdominal cramping [R10.9] 07/01/2024 Encounter Status:Closed by FE PAYAN on 07/16/24 Normal [facility] Examination level ultrasound on 07-15-2024 [facility] Radiology Study observation (narrative) [facility] CHLAMYDIA/GC BY PCRon 2023 CHLAMYDIA/GC BY PCR SPECIMEN SOURCE CERVIX CHLAMYDIA DNA(PCR) Negative (qualifier value) Chlamydia trachomatis not detected by nucleic acid amplification. This does not exclude the possibility of infection because results are dependent on adequate specimen collection. GONORRHOEAE DNA(PCR) Negative (qualifier value) Neisseria gonorrhoeae not detected by nucleic acid amplification. This does not exclude the possibility of infection because results are dependent on adequate specimen collection. Normal [facility] Comment on above: Performed By: #### C GS #### [facility] ([id number]) [address], [address] [place] [address] URINALYSISon 07-14-2024 Bilirubin Ql (U) Negative Normal NEG [facility] Comment on above: Performed By: #### U A #### [facility] ([id number]) [address], [address] [place] [address] BLOOD/HGB Large Abnormal NEG [facility] Comment on above: Performed By: #### U A #### [facility] ([id number]) [address] [place] [address] Color (U) YELLOW Normal YELLOW [facility] Comment on above: Performed By: #### U A #### [facility] ([id number]) [address], [address] [place] [address] Glucose Ql (U) Negative Normal NEG [facility] Comment on above: Performed By: #### U A #### [facility] ([id number]) [address], [address] [place] [address] Ketones Ql (U) Negative Normal NEG [facility] Comment on above: Performed By: #### U A #### [facility] ([id number]) [address] [place] [address] Leukocyte esterase Test strip Ql (U) Small Abnormal NEG [facility] Comment on above: Performed By: #### U A #### [facility] ([id number]) [address] [place] [address] MUCOUS PRESENT Abnormal NONE [facility] Comment on above: Performed By: #### U A #### [facility] ([id number]) [address] [place] [address] Nitrite Ql (U) Negative Normal NEG [facility] Comment on above: Performed By: #### U A #### [facility] ([id number]) [address] [place] [address] pH (U) 7.0 [pH] Normal 5.0-8.5 [facility] Comment on above: Performed By: #### U A #### [facility] ([id number]) [address] [place] [address] Protein Ql (U) Negative Normal NEG [facility] Comment on above: Performed By: #### U A #### [facility] ([id number]) [address], [address] [place] [address] R.B.CELLS 386 /hpf High 0-5 [facility] Comment on above: Performed By: #### U A #### [facility] ([id number]) [address], [address] [place] [address] Specific gravity (U) [Rel density] 1.010 Normal 1.003-1.035 [facility] Comment on above: Performed By: #### U A #### [facility] ([id number]) [address] [facility] [address] [place] [address] SQUAMOUS EPITHELIUM 16 /hpf High 0-5 [facility] Comment on above: Performed By: #### U A #### [facility] ([id number]) [address] [address] [place] [address] TURBIDITY HAZY Abnormal CLEAR [facility] Comment on above: Performed By: #### U A #### [facility] ([id number]) [address] [address] [place] [address] Urinalysis dipstick W Reflex Microscopic panel (U) URINE RECEIVED WITHOUT PRESERVATIVE-DELAYS IN TRANSPORT MAY AFFECT RESULTS.INTERPRET WITH CAUTION AND CLINICAL CORRELATION IS RECOMMENDED. Normal [facility] Comment on above: Performed By: #### U A #### [facility] ([id number]) [address] [address] [place] [address] Urobilinogen (U) [Mass/Vol] mg/dL Normal <1.1 [facility] Comment on above: Performed By: #### U A #### [facility] ([id number]) [address], [address] [place] [address] W.B.CELLS 5 /hpf Normal 0-5 [facility] Comment on above: Performed By: #### U A #### [facility] ([id number]) [address] [facility], [address] [place] [address] URINE CULTUREon 07-14-2024 Bacteria identified Cx Nom (U) SPECIMEN NOTES URINE RECEIVED WITHOUT PRESERVATIVE CULTURE RESULTS 50,000 to 100,000 ORGANISMS/mL NORMAL URO GENITAL RANDY URINE RECEIVED WITHOUT PRESERVATIVE-DELAYS IN TRANSPORT MAY AFFECT RESULTS.INTERPRET WITH CAUTION AND CLINICAL CORRELATION IS RECOMMENDED. Normal [facility] Comment on above: Performed By: #### 6 30-4 #### [facility] ([id number]) [address] [facility], [address] [place] [address] VAGINITIS PANEL PCRon 2023 VAGINITIS PANEL PCR BACT. VAGINOSIS DNA Not detected (qualifier value) Qualitative results are reported based on detection and quantitation of targeted organism markers which include: Lactobacillus spp. (L. crispatus and L. jensenii), Gardnerella vaginalis, Atopobium vaginae, Bacterial Vaginosis Associated Bacteria-2 (BVAB-2) and Megasphaera-1 CHERELLE SPECIES DNA Not detected (qualifier value) Cherelle species not detected include: C. albicans, C. tropicalis, C. parapsilosis or C. dubliniensis CHERELLE KRUSEI DNA Not detected (qualifier value) No Cherelle krusei detected CHERELLE GLABRATA DNA Not detected (qualifier value) No Cherelle glabrata detected TRICHOMONAS VAG DNA Not detected (qualifier value) No Trichomonas vaginalis detected NOTE BD MAX Vaginal Panel has not been evaluated for patients under 18 years old. Results for these patients should be reviewed and assessed in accordance with clinical presentation to determine patient diagnosis. Normal [facility] Comment on above: Performed By: #### V PPCR #### [facility] ([id number]) [address] [facility], [address] [place] [address] Bedside Glucoseon 07-11-2024 FINGERSTICK GLU 106 mg/dL Normal 74-106 [facility] Comment on above: Result Comment: STEPHANY SIMMONS OF PATIENT CARE PER NURSING PROTOCOL Performed By: #### L 501.080 #### [facility] [address] [place], [address] FINGERSTICK GLU 82 mg/dL Normal 74-106 [facility] Comment on above: Result Comment: STEPHANY GEMENT OF PATIENT CARE PER NURSING PROTOCOL Performed By: #### L 501.080 #### [facility] [address] [place], [address] FINGERSTICK GLU 54 mg/dL Low 74-106 [facility] Comment on above: Result Comment: STEPHANY GEMENT OF PATIENT CARE PER NURSING PROTOCOL Performed By: #### L 501.080 #### [facility] [address] [place], [place], [address] CNOVon 07-11-2024 CNOV Office Visit (UCWSTR ) -------- ROSY DOMINIQUE ([id number]) 3 F Date Time Provider Department 07/11/24 3:15 PM TESFAYE CONNELL [facility] During your visit today, we recorded the following information about you: Temperature Pulse Respiration Blood pressure 98.8 degrees 83/minute 18/minute 98/62 Weight 61.2 kg Tesfaye Connell MD 07/11/2024 3:38 PM Signed Patient presents with: left big toe pain: Kicked a dresser 2 days ago HPI: Kicked a dresser with her left great toe 2 days ago. 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 She has pus draining from the toe. There is pain with moving the toe or walking that radiates up into the proximal foot. She is applying antibiotic cream. Currently . MEDICATIONS: gabapentin (NEURONTIN) 300 mg capsule Take 1 capsule by mouth three times a day for 90 days. (Patient taking differently: Take 300 mg by mouth as needed.) cyclobenzaprine (FLEXERIL) 10 mg tablet Take 0.5 tablets by mouth two times a day as needed. blood sugar diagnostic test strip Use as directed to check glucose levels up to seven times daily. Lancets Use as directed to check glucose levels up to seven times daily. alcohol swabs (ALCOHOL PREP PADS) Use as directed to check glucose levels up to seven times daily. vit calc,iron,folic (PRENAT.VITS,ANISH,MIN-IRO N-FOLIC ORAL) Take by mouth once daily. ALLERGIES: ALLERGIES Allergen Reactions Amoxicillin Rash, GI Upset, Unknown Anesthetics - Amide* Other: See Comments Bupivacaine Shortness of Breath Chloroprocaine Shortness of Breath Coconut Anaphylaxis, Unknown Dexamethasone Itching Hydrocodone Itching, Unknown Latex Other: See Comments, Unknown Lidocaine Shortness of Breath Onion Extract Other: See Comments Vancomycin Rash, Other: See Comments Vicodin [Hydrocodon* Rash VITALS: BP 98/62 Pulse 83 Temp 37.1 ?C (98.8 ?F) (Tympanic) Resp 18 Wt 61.2 kg (134 lb 14.7 oz) LMP 02/14/2024 SpO2 98% BMI 19.92 kg/m? PE: Pleasant, in no acute distress. TOE: left great. Mild erythema along the proximal and lateral nail borders. There is granulation in the lateral nail fold. The toe is painful to move and tender to palpation along the nail. Kyrgyz prevents further inspection of the nail bed. ASSESSMENT/PLAN: 1. Great toe pain, left - ICD9: 729.5, ICD10: M79.675 Probably toe contusion and partial nail avulsion. Possibly pre-existing paronychia though she was not aware of any pre-injury infection. - MUPIROCIN 2 % TOPICAL OINTMENT She is leaving to go out of state tomorrow and has significant pain with ambulation. She plans to go to the ER now where xray is available to rule out 1st toe fracture. Tesfaye Connell MD Allergies As of Date: 07/11/2024 Noted Allergy Reaction AMOXICILLIN 08/18/2022 2 - Rash 8 - GI Upset 16 - Unknown ANESTHETICS - AMIDE TYPE - SELECT*04/12/2024 14 - Other: See Comments BUPIVACAINE 08/23/2022 12 - Shortness of Breath CHLOROPROCAINE 08/23/2022 12 - Shortness of Breath COCONUT 06/14/2022 10 - Anaphylaxis 16 - Unknown DEXAMETHASONE 12/08/2022 9 - Itching HYDROCODONE 08/18/2022 9 - Itching 16 - Unknown LATEX 12/19/2021 14 - Other: See Comments 16 - Unknown LIDOCAINE 08/23/2022 12 - Shortness of Breath ONION EXTRACT 04/12/2024 14 - Other: See Comments VANCOMYCIN 08/20/2022 2 - Rash 14 - Other: See Comments VICODIN (HYDROCODONE-ACETAMINOPH E*08/18/2022 2 - Rash Date Reviewed: 07/11/2024 Reviewed by: Zina Lamb LPN - Fully Assessed Reason for Visit: left big toe pain [Other] Cmt: Kicked a dresser 2 days ago Primary Visit Diagnosis:Great toe pain, left [M79.675] Order(s):mupirocin (BACTROBAN) 2 % ointmentApply to affected area three times a day for 10 days.Disp: 15 gRfl: 0 Prescriptions as of 07/11/2024 - mupirocin (BACTROBAN) 2 % ointment Apply to affected area three times a day for 10 days. - gabapentin (NEURONTIN) 300 mg capsule Take 1 capsule by mouth three times a day for 90 days. - cyclobenzaprine (FLEXERIL) 10 mg tablet Take 0.5 tablets by mouth two times a day as needed. - blood sugar diagnostic test strip Use as directed to check glucose levels up to seven times daily. - Lancets Use as directed to check glucose levels up to seven times daily. - alcohol swabs (ALCOHOL PREP PADS) Use as directed to check glucose levels up to seven times daily. - vit calc,iron,folic (PRENAT.VITS,ANISH,MIN-IRO N-FOLIC ORAL) Take by mouth once daily. 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 Normal [facility] Emergency Department Summary on 07-11-2024 Emergency Department Summary [facility] Medical Records Department [address] [place] [address] Emergency Department Summary 07/11/24 MR#: [id number] Acct: [id number] Name: ROSY DOMINIQUE Rep #: [id number] : 2005 18 From: Godwin Hutchinson DO PCP: Dr. Florentin Toribio DO Status:REG ER Location: ED HPI History of Present Illness HPI Narrative: Patient presents with injury to her left great toe that occurred 2 days ago. Patient states she accidentally followed something with her left great toe. Patient states the pain has been getting progressively worse. Patient describes the pain as sharp and stabbing. Patient states the pain is worse when anything touches her toe. Patient admits to some tingling over the plantar aspect of her great toe. Patient denies any weakness. Patient denies any other injuries. Chief Complaint: Lower Extremity Injury Informant: patient Occured/Mechanism Mechanism/Context: Yes blunt trauma Onset/Context/Timing Onset: Days (2) Context: Sudden Onset Timing: Continuous Quality of Pain: Sharp and Stabbing Location: Left great toe Worsened by: Palpation Relieved by: Nothing Associated Symptoms Associated Symptoms: Positive for Parasthesia; Negative for Weakness or Loss of Funtion [facility] Medical History Diabetes type I Seasonal allergies Seizure Breast abscess Lump of breast Mastitis Breech presentation Premature rupture of membranes Toxoplasmosis affecting Positive GBS test Supervision of normal first teen POTS (postural orthostatic tachycardia syndrome) Home Medications ???Medication ???Instructions ???Recorded ???Last Taken ???Type PNV 153-FA 400 mcg-om3 35 mg-dha tab PO 04/09/24 Unknown History 25 mg-epa 5 mg-fish oil chew tablet ferrous sulfate 325 mg (65 mg 325 mg PO DAILY 04/09/24 Unknown History iron) tablet (Feosol) Allergy/AdvReac Type Severity Reaction Status Date / Time amoxicillin Allergy Rash Verified 07/11/24 15:44 coconut Allergy Anaphylaxis Verified 07/11/24 15:44 dexmethylphenidate Allergy Itching Verified 07/11/24 15:44 hydrocodone Allergy Rash Verified 07/11/24 15:44 latex Allergy skin Verified 07/11/24 15:44 hayes, headaches onion Allergy Shortness Verified 07/11/24 15:44 of breath vancomycin Allergy Rash Verified 07/11/24 15:44 Anesthetics - Amide Type - AdvReac Severe Anaphylaxis Verified 07/11/24 15:44 Select A (anesthesia) Family History Mother POTS (postural orthostatic tachycardia syndrome) Autism Grandmother Breast cancer Thyroid disorder Skin cancer Sister Autism Son Autism Surgical History H/O laparoscopy Status post delivery Social History adopted: Yes household members: significant other, family and children number of children: 1 current occupational status: employed current occupation: [employer] pets and animals: Yes (Avoid litterbox) pets and animals: cat(s) and dog(s) history of recent travel: No sexually active: Yes Smoking Status: Former smoker quit date: 01/12/24 Electronic Cigarette Use: with nicotine alcohol intake: never substance use type: does not use well-balanced diet: daily or most days caffeine: Yes (not while ) Type: tea Number of servings: 1 eating out: rarely or never what type of physical activity do you participate in: none hayden/episcopalian: None seatbelt use: always do you feel safe at home: Yes additional social history: BF [employer] ROS ROS ED Constitutional Constitutional ED: Denies chills or fever(s) Eyes Eyes: Denies blurry vision or change in vision ENT ENT ED: Denies rhinorrhea or sore throat Cardiovascular Cardiovascular: Denies chest pain or palpitations Respiratory/Chest Respiratory/Chest: Denies cough or dyspnea Gastrointestinal Gastrointestinal: Denies nausea or vomiting Genitourinary Genitourinary ED: Denies dysuria or hematuria Musculoskeletal Musculoskeletal: Denies back pain or neck pain Integumentary Denies abscess or rash Neurologic Neurologic: Denies headache(s) or weakness Allergic/Immunologic Allergic/Immunologic ED: Denies mouth swelling or urticaria EXAM Physical Exam Const Vital Signs: 07/11/24 15:42 07/11/24 15:55 07/11/24 15:59 Temperature 98 F Temperature Source Temporal Pulse Rate 83 90 Respiratory Rate 16 15 Respiratory Effort Normal Respiratory Pattern Normal Blood Pressure 105/81 H 110/74 Blood Pressure Mean 89 86 Pulse Ox 98 98 Oxygen Delivery Method Room Air Room Air Positive well nourished and well developed General Appearance (more content not included)... Normal [facility] Foot min 3 Viewson 4 Foot min 3 Views [facility] [address], [place] [address] Foot min 3 Views MR#: [id number] Acct: [id number] Name: ROSY DOMINIQUE Rep #: [id number] : 2005 F 18 From: Jose Telles PCP: Dr. Florentin Toribio DO Status: REG ER Study: Foot min 3 Views Date of Exam: 07/11/24 Exam# [id number] Ordering Dr: Godwin Hutchinson DO [id number] EXAM: XR LEFT FOOT COMPLETE, 3 OR MORE VIEWS CLINICAL INDICATION: Injury/Pain -- Shield abdomen, positive TECHNIQUE: Frontal, lateral and oblique views of the left foot. COMPARISON: No relevant prior studies available. FINDINGS: BONES/JOINTS: Unremarkable. No acute fracture. No subluxation. Normal alignment. Preservation of the joint space. No sclerotic or destructive changes observed. SOFT TISSUES: Unremarkable. No soft tissue swelling or gas. No radiopaque foreign body. RAD/Foot min 3 Views IMPRESSION: Negative left foot x-rays. Electronically Signed: Jose Montague MD at 17:05 EDT , CC: Dr. Godwin Hutchinson DO; Dr. Florentin Toribio DO Engineering Job Titles: Signed Normal [facility] 07-02-2024 [facility] Telephone (WHQ) -------- ROSY DOMINIQUE ([id number]) 3 F Date Time Provider Department 07/02/24 [facility] GUADALUPE [facility] During your visit today, we recorded the following information about you: Tre Luna 05/04/2024 2:35 PM Signed Attempt #: 1 Contact Made: left message on patient's voicemail asking patient to return my call Please assist with rescheduling as follows: WHO should the patient schedule the appointment with? First provider available WHAT specific type of appointment is needed? Routine OB WHEN should the patient be seen? Comparable WHERE should the patient be seen? In Office Is there a day held for reschedules? n Contact P [facility] with questions Tre Luna 05/04/2024 2:35 PM Signed 2nd Attempt Contact Made: sent MyChart letter Tre Luna 05/05/2024 12:12 PM Signed 3rd Attempt Contact Made: left message on patient's voicemail asking patient to return my call Allergies As of Date: 07/02/2024 Noted Allergy Reaction AMOXICILLIN 08/18/2022 2 - Rash 8 - GI Upset 16 - Unknown BUPIVACAINE 08/23/2022 12 - Shortness of Breath CHLOROPROCAINE 08/23/2022 12 - Shortness of Breath COCONUT 06/14/2022 10 - Anaphylaxis 16 - Unknown DEXAMETHASONE 12/08/2022 9 - Itching HYDROCODONE 08/18/2022 9 - Itching 16 - Unknown LATEX 12/19/2021 14 - Other: See Comments 16 - Unknown LIDOCAINE 08/23/2022 12 - Shortness of Breath VANCOMYCIN 08/20/2022 2 - Rash 14 - Other: See Comments VICODIN (HYDROCODONE-ACETAMINOPH E*08/18/2022 2 - Rash Date Reviewed: 04/27/2024 Reviewed by: Jennifer Farrar RN - Fully Assessed Reason for Visit: Appointment [186] Cmt: 07/02 CX Prescriptions as of 05/05/2024 - cephALEXin (KEFLEX) 500 mg capsule Take 1 capsule by mouth four times daily for 7 days. - gabapentin (NEURONTIN) 300 mg capsule Take 1 capsule by mouth three times a day for 90 days. - cyclobenzaprine (FLEXERIL) 10 mg tablet Take 0.5 tablets by mouth two times a day as needed. - blood sugar diagnostic test strip Use as directed to check glucose levels up to seven times daily. - Lancets Use as directed to check glucose levels up to seven times daily. - alcohol swabs (ALCOHOL PREP PADS) Use as directed to check glucose levels up to seven times daily. - vit calc,iron,folic (PRENAT.VITS,ANISH,MIN-IRO N-FOLIC ORAL) Take by mouth. 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] 04/09/2023 Toxoplasmosis affecting [O98.619, B58*04/07/2024 04/26/2024 Threatened premature labor, not delivered [O47.*04/28/2022 04/26/2024 Seizure (HCC) [R56.9] 07/24/2023 Premature rupture of membranes [O42.90] 08/16/2022 04/26/2024 Palpitations [R00.2] 06/13/2023 Cardiomyopathy (HCC) [I42.9] 04/07/2024 04/26/2024 Breech presentation [O32.1XX0] 08/16/2022 04/26/2024 Arthralgia of temporomandibular joint [M26.629] 04/30/2023 Encounter for supervision of high risk young mu*04/07/2024 History of delivery, currently *04/07/2024 with uncertain viability [O36.8*04/07/2024 04/26/2024 History of prior with small for gesta*04/07/2024 History of [Z98.891] 04/07/2024 History of toxoplasmosis [Z86.19] 04/07/2024 Antepartum diabetes mellitus [O24.919] 04/07/2024 04/26/2024 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 metabolic 2000 panelon 07-01-2024 Albumin [Mass/Vol] 4.0 g/dL Normal 3.9-4.9 [facility] Comment on above: Order Comment: Speci men Type: BLOOD SPECIMENOrdering Facility: [facility] Address: [address] [place] [address] Performed By: #### 2 4323-8, 46572-2 ####[facility]ORATORYCLIA [id number] [place] [address] [place] [Catalytic activity/Vol] 58 U/L Normal 34-123 [facility] Comment on above: Order Comment: Speci men Type: BLOOD SPECIMENOrdering Facility: [facility] Address: [address] [place] [address] Performed By: #### 2 4323-8, 81315-5 ####BOOTH LABORATORYCLIA [id number] [place] [id number] [place] ALT [Catalytic activity/Vol] 9 U/L Normal 7-38 [facility] Comment on above: Order Comment: Speci men Type: BLOOD SPECIMENOrdering Facility: [facility] Address: [address] [place] [address] Performed By: #### 2 4323-8, 32288-6 ####BOOTH LABORATORYCLIA [id number] [place] [id number] [place] Anion gap [Moles/Vol] 9 mmol/L Normal 8-15 [facility] Comment on above: Order Comment: Speci men Type: BLOOD SPECIMENOrdering Facility: [facility] Address: [address] [place] [address] Performed By: #### 2 4323-8, 40609-9 ####BOOTH LABORATORYCLIA [id number] [place] [address] [place] AST [Catalytic activity/Vol] 17 U/L Normal 13-35 [facility] Comment on above: Order Comment: Speci men Type: BLOOD SPECIMENOrdering Facility: [facility] Address: [address] [place] [address] Performed By: #### 2 4323-8, 08910-5 ####BOOTH LABORATORYCLIA [id number] [place] [address] [place] Bilirubin [Mass/Vol] 0.3 mg/dL Normal 0.2-1.3 [facility] Comment on above: Order Comment: Speci men Type: BLOOD SPECIMENOrdering Facility: [facility] Address: [address] [place] [address] Performed By: #### 2 4323-8, 64702-4 ####BOOTH LABORATORYCLIA [id number] [place] [address] [place] Calcium [Mass/Vol] 9.0 mg/dL Normal 8.5-10.2 [facility] Comment on above: Order Comment: Speci men Type: BLOOD SPECIMENOrdering Facility: [facility] Address: [facility] [place] [address] Performed By: #### 2 4323-8, 36641-6 ####BOOTH LABORATORYCLIA [id number] [place] [address] [place] Chloride [Moles/Vol] 104 mmol/L Normal 98-107 [facility] Comment on above: Order Comment: Speci men Type: BLOOD SPECIMENOrdering Facility: [facility] Address: [address] [place] [address] Performed By: #### 2 4323-8, 83972-9 ####BOOTH LABORATORYCLIA [id number] [place] [address] [place] CO2 [Moles/Vol] 24 mmol/L Normal 22-30 [facility] Comment on above: Order Comment: Arden roman Type: BLOOD SPECIMENOrdering Facility: [facility] Address: [address] [place] [address] Performed By: #### 2 4323-8, 79960-1 ####WARSAW LABORATORYCLIA [id number] [place] [address] [place] [facility] Creatinine [Mass/Vol] 0.57 mg/dL Low 0.58-0.96 [facility] Comment on above: Order Comment: Arden roman Type: BLOOD SPECIMENOrdering Facility: [facility] Address: [address] [place] [address] Performed By: #### 2 4323-8, 88875-5 ####WARSAW LABORATORYCLIA [id number] [address] Creatinine and Glomerular filtration rate.predicted panel (S/P/Bld) 134 mL/min/1.73m??? Normal >=60 [facility] Comment on above: Order Comment: Arden roman Type: BLOOD SPECIMENOrdering Facility: [facility] Address: [address] [place] [address] Result Comment: Trupti mated Glomerular Filtration Rate (eGFR) is calculated using the 2020 CKD-EPI creatinine equation. This equation utilizes serum creatinine, sex, and age as parameters. The creatinine assay has traceable calibration to isotope dilution-mass spectrometry. Refer to KDIGO guidelines for clinical interpretation. In patients with unstable renal function, e.g. those with acute kidney injury, the eGFR may not accurately reflect actual GFR. Performed By: #### 2 4323-8, 91484-5 ####WARSAW LABORATORYCLIA [id number] [place] [id number] [place] Glucose [Mass/Vol] 55 mg/dL Low 74-99 [facility] Comment on above: Order Comment: Arden jessie Type: BLOOD SPECIMENOrdering Facility: [facility] Address: [address] [place] [address] Result Comment: The [place] Diabetes Association (ADA) provides guidance for cutoff values for fasting glucose and random glucose. The ADA defines fasting as no caloric intake for at least 8 hours. Fasting plasma glucose results between 100 to 125 mg/dL indicate increased risk for diabetes (prediabetes). Fasting plasma glucose results greater than or equal to 126 mg/dL meet the criteria for diagnosis of diabetes. In the absence of unequivocal hyperglycemia, results should be confirmed by repeat testing. In a patient with classic symptoms of hyperglycemia or hyperglycemic crisis, random plasma glucose results greater than or equal to 200 mg/dL meet the criteria for diagnosis of diabetes. Reference: Standards of Medical Care in Diabetes 2016, [place] [employer] Association. Diabetes Care. 2016.39(Suppl 1). Performed By: #### 2 4323-8, 71272-5 ####BOOTH LABORATORYCLIA [id number] [place] [address] [place] Potassium [Moles/Vol] 4.1 mmol/L Normal 3.7-5.1 [facility] Comment on above: Order Comment: Arden roman Type: BLOOD SPECIMENOrdering Facility: [facility] Address: [address] [place] [address] Performed By: #### 2 4323-8, 30453-2 ####BOOTH LABORATORYCLIA [id number] [place] [address] [place] Protein [Mass/Vol] 6.7 g/dL Normal 6.3-8.0 [facility] Comment on above: Order Comment: Arden roman Type: BLOOD SPECIMENOrdering Facility: [facility] Address: [address] [place] [address] Performed By: #### 2 4323-8, 39299-4 ####BOOTH LABORATORYCLIA [id number] [place] [address] [place] Sodium [Moles/Vol] 137 mmol/L Normal 136-144 [facility] Comment on above: Order Comment: Arden roman Type: BLOOD SPECIMENOrdering Facility: [facility] Address: [address] [place] [address] Performed By: #### 2 4323-8, 88422-1 ####BOOTH LABORATORYCLIA [id number] [place] [address] [place] Urea nitrogen [Mass/Vol] 6 mg/dL Low 7-21 [facility] Comment on above: Order Comment: Arden roman Type: BLOOD SPECIMENOrdering Facility: [facility] Address: [address] [place], [place] [address], [place] [address] Performed By: #### 2 4323-8, 37005-7 ####BOOTH LABORATORYCLIA [id number] [place] [address] [facility] NT-proBNP [facility] 07-01 Natriuretic peptide.B prohormone N-Terminal [Mass/Vol] 57 pg/mL Normal <125 [facility] Comment on above: Order Comment: Speci men Type: BLOOD SPECIMENOrdering Facility: [facility] Address: [address] [address] [place] [id number] Performed By: #### 2 4323-8, 77753-1 ####BOOTH LABORATORYCLIA [id number] [place] [address] [facility] CNOVon 06-30-2024 CNOV Office Visit (CMFMMN ) -------- ROSY DOMINIQUE ([id number]) 3 F Date Time Provider Department 06/30/24 1:45 PM MATTHIAS GONZALEZ CMMN During your visit today, we recorded the following information about you: Matthias Gonzalez MD 07/01/2024 7:35 PM Signed OBSTETRICS MATERNAL MEDICINE CONSULT CARDIO-OBSTETRICS SERVICE DATE: June 30, 2024 SERVICE TIME: 2:00 REQUESTING PROVIDER: Akiko Tomlin PA-C Subjective HISTORY OF THE PRESENT ILLNESS: Rosy Dominique is a 18 yo with intrauterine at 19w4d by 9 week US who was referred to cardio-obstetrics clinic due to history of syncope and presyncopal episodes and 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 She has had electrocardiographic studies which have revealed a right bundle branch block but otherwise have not been confirmatory for Brugada syndrome. She wore a Holter monitor in 2022 which was negative. She does not have a family history significant for any other family members with sudden cardiac or other congenital heart disease. She has also been diagnosed with POTS disease but not evidence of prior tilt table testing. She was trialed once before on fludrocortisone which worsened her symptoms so was discontinued. She manages her symptoms nonpharmacologically at this time with hydration, avoiding sudden position changes and use of compression stockings with periods of prolonged standing. Today, she reports that she has continued to experience presyncopal events that are mostly triggered by sudden position changes such as taking the elevator. She does report that she has felt more lightheaded and presyncopal in recent weeks during this and also notes dyspnea with activity. HISTORY REVIEW PAST MEDICAL HISTORY No date: Brugada syndrome No date: Chronic daily headache No date: Complication of anesthesia No date: Diabetes, gestational No date: POTS (postural orthostatic tachycardia syndrome) No date: Seizure (HCC) No date: Thyroid disease No date: Trauma PAST SURGICAL HISTORY 06/14/2022: DELIVERY ONLY 03/17/2024: L'SCOPE DX W/WO BRUSHINGS/WASHINGS Comment: [place] to r/o ectopic 08/18/2022: MASTOTOMY W/EXPLORATION/DRAINAGE ABSCESS DEEP; Right FAMILY HISTORY Problem Relation Age of Onset None Mother None Father Diabetes Paternal Grandfather Social History Tobacco Use Smoking status: Never Passive exposure: Yes Smokeless tobacco: Never Tobacco comments: vape Vaping Use Vaping status: Former Substances: Nicotine Substance Use Topics Alcohol use: No Drug use: Never Obstetric History T0 L1 SAB5 IAB1 Ectopic0 Multiple0 Live Births1 Name of Baby 1: Not recorded Date: Not recorded GA: Not recorded Type: Not recorded Apgar1: Not recorded Apgar5: Not recorded Living: Not recorded Name of Baby 2: Not recorded Date: Not recorded GA: Not recorded Type: Not recorded Apgar1: Not recorded Apgar5: Not recorded Living: Not recorded Name of Baby 3: Not recorded Date: Not recorded GA: Not recorded Type: Not recorded Apgar1: Not recorded Apgar5: Not recorded Living: Not recorded Name of Baby 4: Not recorded Date: 08/19/19 GA: Not recorded Type: INDUCED Apgar1: Not recorded Apgar5: Not recorded Living: Not recorded Name of Baby 5: Alice Date: 06/14/22 GA: 31w0d Type: , Unspecified Apgar1: Not recorded Apgar5: Not recorded Living: Living Name of Baby 6: Not recorded Date: 11/03/22 GA: Not recorded Type: MISSED AB Apgar1: Not recorded Apgar5: Not recorded Living: Not recorded Name of Baby 7: Not recorded Date: 01/18/24 GA: Not recorded Type: Not recorded Apgar1: Not recorded Apgar5: Not recorded Living: Not recorded Name of Baby 8: Not recorded Date: Not recorded GA: Not recorded Type: Not recorded Apgar1: Not recorded Apgar5: Not recorded Living: Not recorded Active Non-Hospital Problems Diagnosis Date Noted growth restriction antepartum 06/24/2024 Overview Note: - Patient diagnosed with FGR based on EFW 7%ile at 18w5d, normal dopplers - Patient thoroughly counseled by MFM - Patient with history of severe FGR and toxoplasmosis with subsequent PPROM at 31 weeks - Normal cervical length on ultrasound - Per chart review, no evidence of toxoplasmosis, patient tested negative in June 2022 at time of delivery - Repeat growth ultrasound ordered in 3 weeks POTS (postural orthostatic tachycardia syndrome) 06/24/2024 Hx of impaired glucose tolerance 05/26/2024 Overview Note: - Patien (more content not included)... Normal [facility] Office [facility] -------- ROSY DOMINIQUE ([id number]) 3 F Date Time Provider Department 06/30/24 1:00 PM ALEJANDRINA WALL CMMN During your visit today, we recorded the following information about you: Pulse Blood pressure Weight Height 94/minute 96/66 60.2 kg 1.753 m Alejandrina Wall DO 06/30/2024 4:55 PM Signed [facility] [place] [facility] [place] Section of Heart Failure and Cardiac Transplant Medicine Section of Maternal Medicine Cardio-Obstetrics Clinic 06/30/2024 OUTPATIENT VISIT TYPE New Patient Referring Physician: Ciara OB: Paras Seamer Operator: Mila Alamo Rosy Dominique is a 18 year old with an of Estimated Date of Delivery: 11/20/24 HISTORY OF PRESENT ILLNESS: Ms. Dominique presents today to Cardio-OB clinic given her VUS SCN5A and TNNT2 mutations currently 19 weeks , presenting for evaluation. She reports increased fatigue, dyspnea on exertion, and palpitations since the onset of . She also experiences dizziness, which has worsened as the has progressed. She has not had any syncope episodes during this but has a history of frequent syncope in the past. Patient was initially diagnosed with POTS based on family history and was treated with fludrocortisone, which exacerbated her symptoms, causing increased dizziness, fever, and vomiting. She later developed seizure-like episodes and was misdiagnosed with epilepsy, for which she was prescribed Keppra. Genetic testing in 2022 revealed two variants of unknown significance (SCN5A and TNNT2), leading to a diagnosis of Brugada syndrome. Her EKGs have consistently shown a right bundle branch block pattern. Patient has had multiple pregnancies and 1 delivery without significant cardiac complications, although she was on bed rest during her last due to labor and IUGR. She is currently followed by a email manager at [facility] but does not have an adult email manager. She is planning to deliver at [facility]. Cardio-OB NURSING INTAKE OB history: Prior c/s, prior small for gestation age Cardiac history: genetic variants of unknown significant in the SCN5A and TNNT2 Genetic testing performed [facility] Desired delivery location: [place] PAST MEDICAL HISTORY No date: Brugada syndrome No date: Chronic daily headache No date: Complication of anesthesia No date: Diabetes, gestational No date: POTS (postural orthostatic tachycardia syndrome) No date: Seizure (HCC) No date: Thyroid disease No date: Trauma PAST SURGICAL HISTORY 06/14/2022: DELIVERY ONLY 03/17/2024: L'SCOPE DX W/WO BRUSHINGS/WASHINGS Comment: [place] to r/o ectopic 08/18/2022: MASTOTOMY W/EXPLORATION/DRAINAGE ABSCESS DEEP; Right SOCIAL HISTORY Social History Tobacco Use Smoking status: Never Passive exposure: Yes Smokeless tobacco: Never Tobacco comments: vape Vaping Use Vaping status: Former Substances: Nicotine Substance Use Topics Alcohol use: No Drug use: Never FAMILY HISTORY Problem Relation Age of Onset None Mother None Father Diabetes Paternal Grandfather ALLERGIES: ALLERGIES Allergen Reactions Amoxicillin Rash, GI Upset, Unknown Anesthetics - Amide* Other: See Comments Bupivacaine Shortness of Breath Chloroprocaine Shortness of Breath Coconut Anaphylaxis, Unknown Dexamethasone Itching Hydrocodone Itching, Unknown Latex Other: See Comments, Unknown Lidocaine Shortness of Breath Onion Extract Other: See Comments Vancomycin Rash, Other: See Comments Vicodin [Hydrocodon* Rash PHYSICAL EXAMINATION: BP 96/66 (BP Site: Left Arm) Pulse 94 Ht 5' 9 (1.753 m) Wt 132 lb 11.2 oz (60.2 kg) LMP 02/14/2024 SpO2 100% BMI 19.60 kg/m? Last 2 Encounter Wt Readings: Date: Wt: 06/24/2024 129 lb (58.5 kg) (51%, Z= 0.03)* 05/26/2024 128 lb 12.8 oz (58.4 kg) (51%, Z= 0.03)* Last 3 BP Last 3 Encounter BP Readings: Date: BP: 06/24/2024 89/60 06/05/2024 91/66 05/26/2024 95/67 General: Well appearing, in no acute distress. Skin: No clubbing, no cyanosis. Eyes: Extra ocular movements intact Oropharynx: Teeth in good repair. Neck: No jugular venous distention, no carotid bruits, carotids have a normal upstroke, no palpable thyromegaly. Lungs: Clear to auscultation bilaterally, no wheezing or rhonchi. Heart: Regular rhythm, PMI not displaced, S1, S2 normal, no S3, no S4, no heaves, no rub and no murmur. Abdomen: Soft, nontender, bowel sounds normal, no palpable organomegaly, no bruits. Extremities: No peripheral edema . Grade 2/4 distal pulses bilaterally. Neuro: Oriented to person, place and time, alert, cooperative, gait coordinated. No results found for: LVEF, LVEDD, LVESD Sodium (mmol/L) Date Value 05/19/2024 136 05/12/2024 136 04/08/2024 138 (more content not included)... Normal [facility] ECHOon 06-30-2024 Echocardiography Echocardiography Rep ort: Transthoracic Echo [facility] J35 Date of service: 06/30/2024 11:27:29 AM Ordering physician: ALEJANDRINA WALL Indication: Shortness of Breath Technologist: Lucila Blanc Interpreting physician: Reed Kelley MD PATIENT: Name: MISS ROSY DOMINIQUE : 2005 Age: 18 years Gender: F Primary rhythm: sinus. Height: 175.30 cm BSA: 1.68 m Weight: 58.06 kg BMI: 18.9 kg/m Heart rate 80 bpm Blood pressure 110/54 mmHg Color Doppler was utilized to interrogate the cardiac valves assessed and spectral Doppler was utilized to determine the flow velocities and pressure gradients reported in this exam. Myocardial strain analysis was performed in this exam to aid in the assessment of cardiac function. MEASUREMENTS: Value Indexed Normal Max aortic dimension 2.7 cm Ao < 3.8 Left atrial volume 37 ml (biplane A-L) 22 ml/m Karlie <= 34 LV ID (diastole) 4.4 cm (2D) 2.62 cm/m LV ID (systole) 3.1 cm (2D) 1.84 cm/m IVS, leaflet tips 0.6 cm (2D) Posterior wall thickness 0.8 cm (2D) Left ventricular mass 92 g (2D) 55 g/m Global peak long strain -19.5 % LV stroke volume 66 ml (2D biplane) LV end diastolic volume 106 ml (2D biplane) 62.9 ml/m 29<=EDVi<62 LV end systolic volume 40 ml (2D biplane) 23.7 ml/m Ejection Fraction 62 % (2D biplane) EF > 54 FINDINGS: LEFT VENTRICLE The left ventricle is normal in size. Left ventricular systolic function is normal. Global LV myocardial strain is normal. Normal left ventricular diastolic function. Mitral annular lateral E/e': 5.4. Mitral annular septal E/e': 8.4. Wall Motion: All scored segments are normal. RIGHT VENTRICLE The right ventricle is normal in size. Right ventricular systolic function is normal. RV systolic tissue Doppler velocity is 13.8 cm/s. Tricuspid annular displacement is 2.1 cm. Estimated right ventricular systolic pressure is not reported due to an insufficient tricuspid regurgitation signal. Estimated right atrial pressure is 8 mmHg based on IVC assessment. LEFT ATRIUM The left atrial cavity is normal in size. RIGHT ATRIUM The right atrial cavity is normal in size. Inferior Vena Cava: The inferior vena cava appears dilated measuring 2.1 cm. The vessel decreases greater than 50 percent with inspiration. MITRAL VALVE The mitral valve leaflets are structurally normal. There is trace mitral valve regurgitation. The pressure half time is 43 msec. The peak mitral E/A ratio is 1.72. The average mitral E/e' ratio is 6.9. The mitral flow deceleration time is 147 msec. TRICUSPID VALVE The tricuspid valve leaflets are structurally normal. There is trace tricuspid valve regurgitation. The hepatic venous pattern showed normal systolic flow. AORTIC VALVE The aortic valve cusps are structurally normal. There is no aortic valve regurgitation. Tricuspid aortic valve. The peak gradient is 10 mmHg (peak velocity = 157.0 cm/s). PULMONIC VALVE There is mild (1+) pulmonic valve regurgitation. There is no thickening. AORTA The visualized aorta is normal in size. Measurements - Sinus: 2.6 cm. Mid ascending aorta 2.7 cm. PULMONARY ARTERIES The pulmonary arteries are normal. INTERATRIAL SEPTUM There is no evidence of intracardiac shunting as detected by Doppler. INTERVENTRICULAR SEPTUM There is no flow through the interventricular septum as detected by Doppler. PERICARDIUM There is no pericardial effusion. CONCLUSIONS: - Exam indication: Shortness of Breath - The left ventricle is normal in size. Left ventricular systolic function is normal. EF = 62 5% (2D biplane) Normal left ventricular diastolic function. - The right ventricle is normal in size. Right ventricular systolic function is normal. - There is mild (1+) pulmonic valve regurgitation. - Estimated right ventricular systolic pressure is not reported due to an insufficient tricuspid regurgitation signal. Estimated right atrial pressure is 8 mmHg based on IVC assessment. - There are no significant valvular abnormalities. - The patient has not had a prior CC echocardiographic exam for comparison. * * * Final * * * CC [employer] Image : [id number] D Normal [facility] CNPCristin 06-29-2024 CNPN [facility]phone [facility] -------- ROSY DOMINIQUE ([id number]) 3 F Date Time Provider Department 06/29/24 BARBIE ORELLANA [facility] During your visit today, we recorded the following information about you: Barbie Orellana RN 06/29/2024 10:10 AM Signed Message left on patients phone confirming her appointment tomorrow. Encouraged to call me back if she is unable to come to her appointment. Salina Orellana RN Allergies As of Date: 06/29/2024 Noted Allergy Reaction AMOXICILLIN 08/18/2022 2 - Rash 8 - GI Upset 16 - Unknown ANESTHETICS - AMIDE TYPE - SELECT*04/12/2024 14 - Other: See Comments BUPIVACAINE 08/23/2022 12 - Shortness of Breath CHLOROPROCAINE 08/23/2022 12 - Shortness of Breath COCONUT 06/14/2022 10 - Anaphylaxis 16 - Unknown DEXAMETHASONE 12/08/2022 9 - Itching HYDROCODONE 08/18/2022 9 - Itching 16 - Unknown LATEX 12/19/2021 14 - Other: See Comments 16 - Unknown LIDOCAINE 08/23/2022 12 - Shortness of Breath ONION EXTRACT 04/12/2024 14 - Other: See Comments VANCOMYCIN 08/20/2022 2 - Rash 14 - Other: See Comments VICODIN (HYDROCODONE-ACETAMINOPH E*08/18/2022 2 - Rash Date Reviewed: 06/24/2024 Reviewed by: Arpit Arteaga MA - Fully Assessed Prescriptions as of 06/29/2024 - gabapentin (NEURONTIN) 300 mg capsule Take 1 capsule by mouth three times a day for 90 days. - cyclobenzaprine (FLEXERIL) 10 mg tablet Take 0.5 tablets by mouth two times a day as needed. - blood sugar diagnostic test strip Use as directed to check glucose levels up to seven times daily. - Lancets Use as directed to check glucose levels up to seven times daily. - alcohol swabs (ALCOHOL PREP PADS) Use as directed to check glucose levels up to seven times daily. - vit calc,iron,folic (PRENAT.VITS,ANISH,MIN-IRO N-FOLIC ORAL) Take by mouth. 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*04/07/2024 04/26/2024 Threatened labor, antepartum [O47.00] 04/28/2022 06/24/2024 Seizure (HCC) [R56.9] 07/24/2023 Premature rupture of membranes [O42.90] 08/16/2022 04/26/2024 Palpitations [R00.2] 06/13/2023 05/26/2024 Cardiomyopathy (HCC) [I42.9] 04/07/2024 04/26/2024 Breech presentation [O32.1XX0] 08/16/2022 04/26/2024 Arthralgia of temporomandibular joint [M26.629] 04/30/2023 05/26/2024 Encounter for supervision of high risk young mu*04/07/2024 History of delivery, currently *04/07/2024 with uncertain viability [O36.8*04/07/2024 04/26/2024 History of prior with small for gesta*04/07/2024 05/26/2024 History of [Z98.891] 04/07/2024 History of toxoplasmosis [Z86.19] 04/07/2024 05/26/2024 Antepartum diabetes mellitus [O24.919] 04/07/2024 04/26/2024 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 History of delivery, anatomic survey , History of section. seizures. Impression FINDINGS 1. FGR at the 7% HISTORY 1. Last was complicated with FGR with associated toxoplasmosis and PPROM The patient is referred for a detailed anatomic survey. - Single, live, intrauterine . - biometry is indicating FGR with an EFW at the 7% ~ 209g - No malformations were visualized on a complete detailed anatomic survey. - The amniotic fluid volume is normal amount. - The placenta is anterior, left. - The Transvaginal cervical length measures 44 mm with no evidence of funneling or other dynamic changes. - Not all structural malformations can be detected by ultrasound examination. Discussed finding of FGR. The results of the ultrasound were discussed with Rosy Dominique . I explained that by today's US the baby was measuring at the 7% with an EFW of 209g and an AC at the 27W%. NIPT results negative for aneuploidy. We then discussed the causes of early growth restriction and I explained that it most often broke down into constitutional ie that the baby is following its genetically predetermined growth potential, non placental causes including genetic, and infections and placentally mediated. I explained that in regards to constitutional, I explained that growth and what is considered normal is based off of a rivera shaped curve and that we say that any baby less than the 10% is considered small. Which results in all babies less than the 10% (even if its normal) being considered small. I cautioned that the further out to the extreme you go the higher the risk of a pathologic cause of the baby being small. In regards to non-placental issues I explained that these are usually associated with a constellation of signs on ultrasound which I did not see including cardiac and intracranial anomalies. I explained that while ultrasound is good modality to look for non-placental causes of small babies. We then discussed the efficacy of NIPT and I explained that the negative predictive value for NIPT was 99.7% but that NIPT only looked for the most common aneuploidies eg Down's (T21), T18, T13, Osborn's and some sex chromosomal anomalies. We then discussed placentally mediated issues ie placental insufficiency. I explained that in some cases the placenta may not be working as well as it should and the transfer of nutrients and oxygen may become compromised - slowing the baby's growth. Of note, Doppler's today showed forward flow and was within normal parameters. . We then discussed next steps and Ms. Rosy Dominique and I explained that I would recommend a follow up growth in 3 weeks. Of note Ms. Rosy Dominique's last was complicated by severe FGR with associated toxoplasmosis infection (as per Ms. Rosy Dominique she had been treated for this infection). She also subsequently went into labor at 31w. Recommendations 1. Continue cervical length screening 2. Follow up growth in 3 weeks - discussed that if baby is still small especially with a slowing growth velocity would recommend consideration for invasive testing. Maternal Assessment Height 175 cm Height (ft) 5 ft Height (in) 9 in Physical Exam Initial weight (lb) 120 lb Initial BMI 17.72 kg/m Method Transabdominal and transvaginal ultrasound examination. View: Adequate visualization Ruffin . Number of fetuses: 1 Dating GA by prior assessment 18 w + 5 d SCOTT by prior assessment: 11/20/2024 Ultrasound examination on: 06/24/2024 GA by U/S based upon: AC, BPD, Femur, HC GA by U/S 18 w + 0 d SCOTT by U/S: 11/25/2024 Assigned: based on stated SCOTT, selected on 05/11/2024 Assigned GA 18 w + 5 d Assigned SCOTT: 11/20/2024 General Evaluation Cardiac activity present. FHR 148 bpm. movements: present. Presentation: cephalic Placenta: Placental site: anterior, left Umbilical cord: Cord vessels: 3 vessel cord. Insertion site: normal insertion Amniotic fluid: Amount of AF: normal amount. MVP 5.2 cm Growth Overview Exam date GA BPD (mm) HC (mm) AC (mm) FL (mm) HL (mm) EFW (g) 06/24/2024 18w 5d 41 38% 149.1 25% 125.3 27% 24.1 11% 25.4 24% 209 7% Biometry Standard BPD 41.0 mm 18w 3d 38% Hadlock OFD 51.9 mm 17w 3d 13% Nicolaides HC 149.1 mm 17w 6d 25% Garrett Cerebellum tr 18.3 mm 18w 0d 13% Hill Nuchal fold 2.5 mm AC 125.3 mm 18w 1d 27% Hadlock Femur 24.1 mm 17w 2d 11% Garrett Humerus 25.4 mm 18w 0d 24% Garrett EFW 209 g 17w 5d 7% Hadlock EFW (lb) 0 lb EFW (oz) 7 oz EFW by: Hadlock (RUF-TJ-MU-FL) Extended Network Associate 5.9 mm CM 4.6 mm 47% Nicolaides Nasal bone 4.7 mm Extremities / Bony Struc FL / (more content not included)... MATERNAL MEDICINE [facility] Radiology Study observation (narrative) [facility] UA DIP, URINE (POC)on 2023 BILIRUBIN UA (POCT) Negative Negative [facility] CLARITY UA (POCT) Clear [facility] COLOR UA (POCT) Yellow [facility] GLUCOSE UA (POCT) Negative Negative mg/dL [facility] Hemoglobin Ql (U) Negative Negative [facility] KETONE UA (POCT) Negative Negative mg/dL [facility] (PO[facility]) Negative Negative [facility] NITRITE UA (POCT) Negative Negative [facility] PH UA (POCT) 7.0 4.5 - 8.0 [facility] Protein Ql (U) Negative Negative mg/dL [facility] SPECIFIC GRAVITY UA (POCT) 1.015 1.005 - 1.030 [facility] UROBILINOGEN UA (POCT) 0.2 Normal E.U./dL [facility] Location:Formerly [facility], [facility], [address] [place] [address], [address] [place] [address] POINT OF CARE [facility] CNPNon 06-22-2024 CNPN Telephone (AGOBW) -------- ROSY DOMINIQUE ([id number]) 3 F Date Time Provider Department 06/22/24 SCOTT HOANG During your visit today, we recorded the following information about you: Monique Pitt RN 06/22/2024 1:04 PM Signed Patient called and said she thinks she lost her mucous plug. States she had a small amount of bloody mucous discharge. States she has been feeling cramps off AND on for a couple of weeks. Patient has a scheduled appointment at [facility] on Sunday 06/24. Recommended patient call office back or report to OB triage if she starts to bleed more, saturating a janene pad an hour x2 or if her pain becomes intolerable. Patient verbalized understanding. Monique Pitt RN June 22, 2024 1:03 PM Allergies As of Date: 06/22/2024 Noted Allergy Reaction AMOXICILLIN 08/18/2022 2 - Rash 8 - GI Upset 16 - Unknown ANESTHETICS - AMIDE TYPE - SELECT*04/12/2024 14 - Other: See Comments BUPIVACAINE 08/23/2022 12 - Shortness of Breath CHLOROPROCAINE 08/23/2022 12 - Shortness of Breath COCONUT 06/14/2022 10 - Anaphylaxis 16 - Unknown DEXAMETHASONE 12/08/2022 9 - Itching HYDROCODONE 08/18/2022 9 - Itching 16 - Unknown LATEX 12/19/2021 14 - Other: See Comments 16 - Unknown LIDOCAINE 08/23/2022 12 - Shortness of Breath ONION EXTRACT 04/12/2024 14 - Other: See Comments VANCOMYCIN 08/20/2022 2 - Rash 14 - Other: See Comments VICODIN (HYDROCODONE-ACETAMINOPH E*08/18/2022 2 - Rash Date Reviewed: 06/05/2024 Reviewed by: Virgen Alamo RN - Fully Assessed Reason for Visit: Patient Question [7927] Prescriptions as of 06/22/2024 - gabapentin (NEURONTIN) 300 mg capsule Take 1 capsule by mouth three times a day for 90 days. - cyclobenzaprine (FLEXERIL) 10 mg tablet Take 0.5 tablets by mouth two times a day as needed. - blood sugar diagnostic test strip Use as directed to check glucose levels up to seven times daily. - Lancets Use as directed to check glucose levels up to seven times daily. - alcohol swabs (ALCOHOL PREP PADS) Use as directed to check glucose levels up to seven times daily. - vit calc,iron,folic (PRENAT.VITS,ANISH,MIN-IRO N-FOLIC ORAL) Take by mouth. 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*04/07/2024 04/26/2024 Threatened labor, antepartum [O47.00] 04/28/2022 Seizure (HCC) [R56.9] 07/24/2023 Premature rupture of membranes [O42.90] 08/16/2022 04/26/2024 Palpitations [R00.2] 06/13/2023 05/26/2024 Cardiomyopathy (HCC) [I42.9] 04/07/2024 04/26/2024 Breech presentation [O32.1XX0] 08/16/2022 04/26/2024 Arthralgia of temporomandibular joint [M26.629] 04/30/2023 05/26/2024 Encounter for supervision of high risk young mu*04/07/2024 History of delivery, currently *04/07/2024 with uncertain viability [O36.8*04/07/2024 04/26/2024 History of prior with small for gesta*04/07/2024 05/26/2024 History of [Z98.891] 04/07/2024 History of toxoplasmosis [Z86.19] 04/07/2024 05/26/2024 Antepartum diabetes mellitus [O24.919] 04/07/2024 04/26/2024 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] 04/07/2024 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] 04/07/2024 [employer]-Power Referred [O99.891] 04/08/2024 Abdominal pain during in first trimes*04/15/2024 Headache in , second trimester [O26.89*05/24/2024 Dizziness [R42] 05/24/2024 05/26/2024 Hx of impaired glucose tolerance [Z87.898] 05/26/2024 Encounter Status:Closed by MONIQUE PITT on 06/22/24 Normal [facility] UA DIP, URINE (POC)on 2023 BILIRUBIN UA (POCT) Negative Negative [facility] CLARITY UA (POCT) Clear [facility] COLOR UA (POCT) Yellow [facility] GLUCOSE UA (POCT) Negative Negative mg/dL [facility] Hemoglobin Ql (U) Negative Negative [facility] KETONE UA (POCT) Negative Negative mg/dL [facility] LEUKOCYTES UA (POCT) Negative Negative [facility] NITRITE UA (POCT) Negative Negative [facility] PH UA (POCT) 7.0 4.5 - 8.0 [facility] Protein Ql (U) Negative Negative mg/dL [facility] SPECIFIC GRAVITY UA (POCT) 1.025 1.005 - 1.030 [facility] UROBILINOGEN UA (POCT) 0.2 Normal E.U./dL [facility] Location:Formerly [facility], [facility], [address] [place] [address], [address] [place] [address] POINT OF CARE [facility] ECG COMPLETEon 05-24-2024 ECG COMPLETE Ventricular Rate : 7 3 BPM Atrial Rate : 73 BPM P-R Interval : 132 ms QRS Duration : 100 ms Q-T Interval : 382 ms QTC Calculation(Bazett) : 420 ms Calculated P Needham : 65 degrees Calculated R Needham : 37 degrees Calculated T [place]ham : 41 degrees NORMAL SINUS RHYTHM RSR' OR QR PATTERN IN V1 SUGGESTS RIGHT VENTRICULAR CONDUCTION DELAY BORDERLINE ECG NO PREVIOUS ECGS AVAILABLE Confirmed by MD VALADEZ DAVID ([id number]) on 05/25/2024 2:38:27 PM NAME : ROSY DOMINIQUE PID : [id number] : 2005 Gender : Female Race : ORD : [id number] Procedure Date : May 24 2024 14:34:47 Edit Date : May 25 2024 14:38:28 Diagnosis: NORMAL SINUS RHYTHM RSR' OR QR PATTERN IN V1 SUGGESTS RIGHT VENTRICULAR CONDUCTION DELAY BORDERLINE ECG NO PREVIOUS ECGS AVAILABLE Confirmed by MD VALADEZ DAVID ([id number]) on 05/25/2024 2:38:27 PM Test Reason : Dizziness Location : [address] : [place] [address] Overread By : MD VALADEZ DAVID Edited By : MD VALADEZ DAVID Referred By : , Acquired by : STEPHANY CHAVEZ [facility] BACTERIAL VAGINOSIS NAATon 0 05-19-2024 Lactobacillus crispatus+gasseri+aretha senii + Gardnerella vaginalis + Atopobium vaginae rRNA ROWENA+probe Ql (Vag fld) Negative Normal Negative for bacterial vaginosis [facility] Comment on above: Order Comment: Speci men Type: SWABOrdering Facility: [facility] Address: [address] [place] [address] Performed By: #### 3 6902-5, BVAMP ####[facility] LABCLIA [id number] [facility] [place] [address] [place] C. trachomatis+N. gonorrhoea e DNA ROWENA+probe Ql (Unsp spec)on 05-19-2024 C. trachomatis rRNA ROWENA+probe Ql (Unsp spec) Negative Normal Negative for Chlamydia trachomatis by [facility] Comment on above: Order Comment: Speci men Type: SWABOrdering Facility: [facility] Address: [address] [place] [address] Performed By: #### 3 6902-5, BVAMP ####[facility] LABCL[facility] [id number] [address] STATES [facility] N. gonorrhoeae rRNA ROWENA+probe Ql (Unsp spec) Negative Normal Negative for Neisseria gonorrhoeae by amplification [facility] Comment on above: Order Comment: Speci men Type: SWABOrdering Facility: [facility] Address: [address] [place] [address] Performed By: #### 3 6902-5, BVAMP ####[facility] LAB[facility] [id number] [place] [address] [place] CBC W Auto Differential pane l (Bld)on 05-19-2024 Basophils (Bld) [#/Vol] 10*3/uL Normal <0.11 [facility] Comment on above: Order Comment: Speci men Type: BLOOD SPECIMENOrdering Facility: [facility] Address: [address] [place] [address] Performed By: #### 5 7021-8 ####[facility]ORY[facility] [id number] [place] [address] [place] Basophils/100 WBC (Bld) 0.1 % Normal [facility] Comment on above: Order Comment: Speci men Type: BLOOD SPECIMENOrdering Facility: [facility] Address: [address] [place] [address] Performed By: #### 5 7021-8 ####[facility]ORATORYCLIA [id number] [place] [address] [place] Differential cell count method Nom (Bld) Auto Normal [facility] Comment on above: Order Comment: Speci men Type: BLOOD SPECIMENOrdering Facility: [facility] Address: [address] [place] [address] Performed By: #### 5 7021-8 ####[facility]ORATORYCL[facility] [id number] [place] [address] [place] Eosinophils (Bld) [#/Vol] 0.11 10*3/uL Normal <0.46 [facility] Comment on above: Order Comment: Speci men Type: BLOOD SPECIMENOrdering Facility: [facility] Address: [address] [place] [address] Performed By: #### 5 7021-8 ####[facility]ORATORYCLIA [id number] [address] [place] Eosinophils/100 WBC (Bld) 1.5 % Normal [facility] Comment on above: Order Comment: Speci men Type: BLOOD SPECIMENOrdering Facility: [facility] Address: [address] [place] [address] Performed By: #### 5 7021-8 ####[facility]ATORYCLIA [id number] [address] [place] Erythrocyte distribution width (RBC) [Ratio] 14.1 % Normal 11.5-15.0 [facility] Comment on above: Order Comment: Speci men Type: BLOOD SPECIMENOrdering Facility: [facility] Address: [address] [place] [address] Performed By: #### 5 7021-8 ####[facility]ORATORYCLIA [id number] [address] [place] Hematocrit (Bld) [Volume fraction] 33.3 % Low 36.0-46.0 [facility] Comment on above: Order Comment: Speci men Type: BLOOD SPECIMENOrdering Facility: [facility] Address: [address] [place] [address] Performed By: #### 5 7021-8 ####[facility] LABORATORYCLIA [id number] [place] [address] [place] Hemoglobin (Bld) [Mass/Vol] 11.4 g/dL Low 11.5-15.5 [facility] Comment on above: Order Comment: Speci men Type: BLOOD SPECIMENOrdering Facility: [facility] Address: [address] [place] [address] Performed By: #### 5 7021-8 ####[facility]ORATORYCLIA [id number] [address] [place] Immature granulocytes (Bld) [#/Vol] 0.03 10*3/uL Normal <0.10 [facility] Comment on above: Order Comment: Speci men Type: BLOOD SPECIMENOrdering Facility: [facility] Address: [address] [place] [address] Performed By: #### 5 7021-8 ####[facility] LABORATORYCLIA [id number] [address] Immature granulocytes/100 WBC (Bld) 0.4 % Normal [facility] Comment on above: Order Comment: Speci men Type: BLOOD SPECIMENOrdering Facility: [facility] Address: [address] [place] [address] Performed By: #### 5 7021-8 ####[facility] LABORATORYCLIA [id number] [address] [place] Lymphocytes (Bld) [#/Vol] 1.35 10*3/uL Normal 1.00-4.00 [facility] Comment on above: Order Comment: Speci men Type: BLOOD SPECIMENOrdering Facility: [facility] Address: [address] [place] [address] Performed By: #### 5 7021-8 ####[facility]ORATORYCLIA [id number] [address] Lymphocytes/100 WBC (Bld) 18.4 % Normal [facility] Comment on above: Order Comment: Speci men Type: BLOOD SPECIMENOrdering Facility: [facility] Address: [address] [place] [address] Performed By: #### 5 7021-8 ####[facility] LABORATORYCLIA [id number] [address] MCH (RBC) [Entitic mass] 29.1 pg Normal 26.0-34.0 [facility] Comment on above: Order Comment: Speci men Type: BLOOD SPECIMENOrdering Facility: [facility] Address: [address] [place] [address] Performed By: #### 5 7021-8 ####[facility] LABORATORYCLIA [id number] [address] MCHC (RBC) [Mass/Vol] 34.2 g/dL Normal 30.5-36.0 [facility] Comment on above: Order Comment: Speci men Type: BLOOD SPECIMENOrdering Facility: [facility] Address: [address] [place] [address] Performed By: #### 5 7021-8 ####[facility] LABORATORYCLIA [id number] [place] [address] [place] MCV (RBC) [Entitic vol] 84.9 fL Normal 80.0-100.0 [facility] Comment on above: Order Comment: Speci men Type: BLOOD SPECIMENOrdering Facility: [facility] Address: [address] [place] [address] Performed By: #### 5 7021-8 ####[facility] LABORATORYCLIA [id number] [place] [address] [place] Monocytes (Bld) [#/Vol] 0.48 10*3/uL Normal <0.87 [facility] Comment on above: Order Comment: Speci men Type: BLOOD SPECIMENOrdering Facility: [facility] Address: [address] [place] [address] Performed By: #### 5 7021-8 ####[facility] LABORATORYCLIA [id number] [address] [place] Monocytes/100 WBC (Bld) 6.5 % Normal [facility] Comment on above: Order Comment: Speci men Type: BLOOD SPECIMENOrdering Facility: [facility] Address: [address] [place] [address] Performed By: #### 5 7021-8 ####[facility] LABORATORYCLIA [id number] [place] [address] [place] Neutrophils (Bld) [#/Vol] 5.36 10*3/uL Normal 1.45-7.50 [facility] Comment on above: Order Comment: Speci men Type: BLOOD SPECIMENOrdering Facility: [facility] Address: [address] [place] [address] Performed By: #### 5 7021-8 ####[facility] LABORATORYCLIA [id number] [place] [address] [place] Neutrophils/100 WBC (Bld) 73.1 % Normal [facility] Comment on above: Order Comment: Speci men Type: BLOOD SPECIMENOrdering Facility: [facility] Address: [facility] [place] [address] Performed By: #### 5 7021-8 ####[facility] LABORATORYCLIA [id number] [place] [address] [place] Nucleated RBC (Bld) [#/Vol] 10*3/uL Normal <0.01 [facility] Comment on above: Order Comment: Speci men Type: BLOOD SPECIMENOrdering Facility: [facility] Address: [address] [place] [address] Performed By: #### 5 7021-8 ####[facility] LABORATORYCLIA [id number] [place] [address] [place] Nucleated RBC/100 WBC (Bld) [Ratio] 0.0 /100 WBC Normal [facility] Comment on above: Order Comment: Speci men Type: BLOOD SPECIMENOrdering Facility: [facility] Address: [address] [place] [address] Performed By: #### 5 7021-8 ####[facility] LABORATORYCLIA [id number] [place] [address] [place] Platelet mean volume (Bld) [Entitic vol] 10.6 fL Normal 9.0-12.7 [facility] Comment on above: Order Comment: Speci men Type: BLOOD SPECIMENOrdering Facility: [facility] Address: [address] [place] [address] Performed By: #### 5 7021-8 ####[facility] LABORATORYCLIA [id number] [place] [address] [place] Platelets (Bld) [#/Vol] 191 10*3/uL Normal 150-400 [facility] Comment on above: Order Comment: Speci men Type: BLOOD SPECIMENOrdering Facility: [facility] Address: [address] [place] [address] Performed By: #### 5 7021-8 ####[facility] LABORATORYCLIA [id number] [place] [address] [place] RBC (Bld) [#/Vol] 3.92 10*6/uL Normal 3.90-5.20 [facility] Comment on above: Order Comment: Speci men Type: BLOOD SPECIMENOrdering Facility: [facility] Address: [address] [place] [address] Performed By: #### 5 7021-8 ####[facility] LABORATORYCLIA [id number] [address] [place] WBC (Bld) [#/Vol] 7.34 10*3/uL Normal 3.70-11.00 [facility] Comment on above: Order Comment: Speci men Type: BLOOD SPECIMENOrdering Facility: [facility] Address: [facility] [place] [address] Performed By: #### 5 7021-8 ####[facility] LABORATORYCLIA [id number] [address] Comprehensive metabolic 2000 panelon 05-19-2024 Albumin [Mass/Vol] 4.0 g/dL Normal 3.9-4.9 [facility] Comment on above: Order Comment: Speci men Type: BLOOD SPECIMENOrdering Facility: [facility] Address: [address] [place] [address] Performed By: #### 2 4323-8, 3040-3 ####[facility] LABORATORYCLIA [id number] [address] [place] ALP [Catalytic activity/Vol] 57 U/L Normal 34-123 [facility] Comment on above: Order Comment: Speci men Type: BLOOD SPECIMENOrdering Facility: [facility] Address: [address] [place] [address] Performed By: #### 2 4323-8, 3040-3 ####[facility] LABORATORYCLIA [id number] [address] [place] ALT [Catalytic activity/Vol] 6 U/L Low 7-38 [facility] Comment on above: Order Comment: Speci men Type: BLOOD SPECIMENOrdering Facility: [facility] Address: [address] [place] [address] Performed By: #### 2 4323-8, 3040-3 ####[facility] LABORATORYCLIA [id number] [place] [address] [place] Anion gap [Moles/Vol] 12 mmol/L Normal 8-15 [facility] Comment on above: Order Comment: Speci men Type: BLOOD SPECIMENOrdering Facility: [facility] Address: [address] [place] [address] Performed By: #### 2 4323-8, 0-3 ####[facility] LABORATORYCLIA [id number] [place] [address] [place] AST [Catalytic activity/Vol] 12 U/L Low 13-35 [facility] Comment on above: Order Comment: Speci men Type: BLOOD SPECIMENOrdering Facility: [facility] Address: [address] [place] [address] Performed By: #### 2 4323-8, 0-3 ####[facility] LABORATORYCLIA [id number] [place] [address] [place] Bilirubin [Mass/Vol] 0.4 mg/dL Normal 0.2-1.3 [facility] Comment on above: Order Comment: Speci men Type: BLOOD SPECIMENOrdering Facility: [facility] Address: [address] [place] [address] [place] [address] Performed By: #### 2 4323-8, 0-3 ####[facility] LABORATORYCLIA [id number] [place] [address] [place] Calcium [Mass/Vol] 9.0 mg/dL Normal 8.5-10.2 [facility] Comment on above: Order Comment: Speci men Type: BLOOD SPECIMENOrdering Facility: [facility] Address: [address] [place] [id number] Performed By: #### 2 4323-8, 3040-3 ####BOOTH LABORATORYCLIA [id number] [place] [id number] [place] Chloride [Moles/Vol] 102 mmol/L Normal 98-107 [facility] Comment on above: Order Comment: Speci men Type: BLOOD SPECIMENOrdering Facility: [facility] Address: [address] [place] [address] Performed By: #### 2 4323-8, 0-3 ####BOOTH LABORATORYCLIA [id number] [place] [address] [place] CO2 [Moles/Vol] 22 mmol/L Normal 22-30 [facility] Comment on above: Order Comment: Arden roman Type: BLOOD SPECIMENOrdering Facility: [facility] Address: [address] [place] [address] Performed By: #### 2 4323-8, 3039-3 ####BOOTH LABORATORYCLIA [id number] [place] [address] [place] Creatinine [Mass/Vol] 0.61 mg/dL Normal 0.58-0.96 [facility] Comment on above: Order Comment: Arden roman Type: BLOOD SPECIMENOrdering Facility: [facility] Address: [address] [place] [address] Performed By: #### 2 4323-8, 3039-3 ####BOOTH LABORATORYCLIA [id number] [address] Creatinine and Glomerular filtration rate.predicted panel (S/P/Bld) 132 mL/min/1.73m??? Normal >=60 [facility] Comment on above: Order Comment: Arden roman Type: BLOOD SPECIMENOrdering Facility: [facility] Address: [address] [place] [address] Result Comment: Trupti mated Glomerular Filtration Rate (eGFR) is calculated using the 2020 CKD-EPI creatinine equation. This equation utilizes serum creatinine, sex, and age as parameters. The creatinine assay has traceable calibration to isotope dilution-mass spectrometry. Refer to KDIGO guidelines for clinical interpretation. In patients with unstable renal function, e.g. those with acute kidney injury, the eGFR may not accurately reflect actual GFR. Performed By: #### 2 4323-8, 0-3 ####BOOTH LABORATORYCLIA [id number] [place] [id number] [place] Glucose [Mass/Vol] 70 mg/dL Low 74-99 [facility] Comment on above: Order Comment: Arden roman Type: BLOOD SPECIMENOrdering Facility: [facility] Address: [address] [place] [address] Result Comment: The [place] Diabetes Association (ADA) provides guidance for cutoff values for fasting glucose and random glucose. The ADA defines fasting as no caloric intake for at least 8 hours. Fasting plasma glucose results between 100 to 125 mg/dL indicate increased risk for diabetes (prediabetes). Fasting plasma glucose results greater than or equal to 126 mg/dL meet the criteria for diagnosis of diabetes. In the absence of unequivocal hyperglycemia, results should be confirmed by repeat testing. In a patient with classic symptoms of hyperglycemia or hyperglycemic crisis, random plasma glucose results greater than or equal to 200 mg/dL meet the criteria for diagnosis of diabetes. Reference: Standards of Medical Care in Diabetes 2016, [place] [employer] Association. Diabetes Care. 2016.39(Suppl 1). Performed By: #### 2 4323-8, 0-3 ####BOOTH LABORATORYCLIA [id number] [place] [address] [place] Potassium [Moles/Vol] 3.5 mmol/L Low 3.7-5.1 [facility] Comment on above: Order Comment: Speci men Type: BLOOD SPECIMENOrdering Facility: [facility] Address: [address] [place] [id number] Performed By: #### 2 4323-8, 3039-3 ####BOOTH LABORATORYCLIA [id number] [place] [address] [place] Protein [Mass/Vol] 6.7 g/dL Normal 6.3-8.0 [facility] Comment on above: Order Comment: Speci men Type: BLOOD SPECIMENOrdering Facility: [facility] Address: [address] [place] [id number] Performed By: #### 2 4323-8, 0-3 ####BOOTH LABORATORYCLIA [id number] [place] [address] [place] Sodium [Moles/Vol] 136 mmol/L Normal 136-144 [facility] Comment on above: Order Comment: Speci men Type: BLOOD SPECIMENOrdering Facility: [facility] Address: [address] [place] [id number] Performed By: #### 2 4323-8, 0-3 ####BOOTH LABORATORYCLIA [id number] [place] [address] [place] Urea nitrogen [Mass/Vol] 5 mg/dL Low 7- [facility] Comment on above: Order Comment: Speci men Type: BLOOD SPECIMENOrdering Facility: [facility] Address: [address] [place] [address] Performed By: #### 2 4323-8, 3040-3 ####WARSAW LABORATORYCLIA [id number] [place] [id number] [place] ED NOTEon 05-19-2024 ED NOTE HNO ID: [id number] Author: THAIS MCKEON RN Service: ? Author Type: Registered Nurse Type: ED Notes Filed: 05/19/2024 23:44 Note Text: Discharge instructions reviewed, verbalized understanding. Patient discharged with all belongings. Normal [facility] ED PROV NOTEon 05-19-2024 ED PROV NOTE HNO ID: [id number] Author: CONNOR DODSON MD Service: ? Author Type: Physician Type: ED Provider Notes Filed: 05/19/2024 23:43 Note Text: ED Provider Note Patient Name: Rosy Dominique : 2005 SERVICE DATE: 05/19/24 History Patient presents with: Abdominal Pain: 13w 5 d . Lower ABD/ back pain x 1.5 hr that she states feels like contractions. States she thinks she lost parts of her mucus plug a few days ago. Denies any vaginal bleeding Patient who is 13 weeks presents for abdominal pain that started approximately 2 hours prior to presentation. Pain started in the pelvic region and then radiated up to the entire abdomen including the upper abdomen. Patient states it hurt so bad she could not move. She is having some yellow discharge that she is concerned is her mucous plug. Patient was seen 1 week ago with a similar complaint of concern for losing her mucous plug. Patient states this has happened to her with a prior . Patient denies fever or chills. No dysuria. She took the antibiotics for her urine as prescribed at her last hospitalization. No vomiting or diarrhea. No vaginal bleeding. PAST MEDICAL HISTORY Diagnosis Date Breast abscess of female right Brugada syndrome Chronic daily headache Complication of anesthesia Diabetes mellitus type I (HCC) Diabetes, gestational NEGATIVE MEDICAL HISTORY 11/10/2015 Normal Color Vision POTS (postural orthostatic tachycardia syndrome) Seizure (HCC) Thyroid disease Trauma PAST SURGICAL HISTORY Procedure Laterality Date DELIVERY ONLY 06/14/2022 L'SCOPE DX W/WO BRUSHINGS/WASHINGS 03/17/2024 [place] to r/o ectopic MASTOTOMY W/EXPLORATION/DRAINAGE ABSCESS DEEP Right 08/18/2022 FAMILY HISTORY Problem Relation Age of Onset None Mother None Father Diabetes Paternal Grandfather Social History Tobacco Use Smoking status: Never Passive exposure: Yes Smokeless tobacco: Current Tobacco comments: vape Vaping Use Vaping Use: Former Substances: Nicotine Substance and Sexual Activity Alcohol use: No Drug use: Never Sexual activity: Yes Partners: Male ALLERGIES Allergen Reactions Amoxicillin Rash, GI Upset, Unknown Anesthetics - Amide* Other: See Comments Bupivacaine Shortness of Breath Chloroprocaine Shortness of Breath Coconut Anaphylaxis, Unknown Dexamethasone Itching Hydrocodone Itching, Unknown Latex Other: See Comments, Unknown Lidocaine Shortness of Breath Onion Extract Other: See Comments Vancomycin Rash, Other: See Comments Vicodin [Hydrocodon* Rash Review of Systems Constitutional: Pertinent positives and negatives as per HPI. Physical Exam Vitals BP Pulse Temp Temp src Resp SpO2 Weight Height 05/19/24204205/19/24204105/19/24204205/19/24204205/19/24204105/19/24204205/19/242042 -- 117/72 (!) 91 36.3 ?C (97.4 ?F) Temporal 20 100 % 58.1 kg (128 lb) Physical Exam Vitals and nursing note reviewed. Exam conducted with a accounts payable administrator present. Constitutional: General: She is not in acute distress. Appearance: She is well-developed. She is not ill-appearing. Cardiovascular: Rate and Rhythm: Normal rate and regular rhythm. Pulmonary: Effort: Pulmonary effort is normal. No respiratory distress. Abdominal: General: Abdomen is flat. Palpations: Abdomen is soft. Tenderness: There is generalized abdominal tenderness. There is no guarding or rebound. Genitourinary: General: Normal vulva. Exam position: Supine. Vagina: Vaginal discharge (large amount of mucous, small amount of white discharge) present. No tenderness or bleeding. Cervix: Discharge (mucousy) and erythema present. No cervical motion tenderness, friability or cervical bleeding. Skin: General: Skin is warm and dry. Neurological: Mental Status: She is alert. Diagnostic Testing ED Labs Ordered and Reviewed - No data to display Procedures ED Course / Clinical Impression ED Course as of 05/19/24 2340 Connor Dodson's Documentation FriMay 19, 20244 WBC: 7.34 No leukocytosis 5 Glucose(!): 70 Glucose is on the low side, patient will be given food 2325 Lipase: 19 Lipase normal Clinical Impressions as of 05/19/24 2340 First trimester Generalized abdominal pain Viral syndrome Abdominal pain during in first trimester MDM / Disposition / Plan Patient presents concern for related abdominal pain and possible loss of her mucous plug. Patient has diffuse abdominal tenderness with no focal tenderness in any quadrant. Pelvic exam did demonstrate large amount of mucus discharge with a small amount of white discharge. Recall os is closed. No cervical motion tenderness. Suspect that this is physiologic discharge. Swabs were obtained and sent to evaluate for any possible infectious cause of the discharge. Patient's urine was negative for infection. She does have ketones p (more content not included)... Normal [facility] Lipase SerPl-cCncon 05-19-20 24 Lipase [Catalytic activity/Vol] 19 U/L Normal 16-61 [facility] Comment on above: Order Comment: Speci men Type: BLOOD SPECIMENOrdering Facility: [facility] Address: [address] [place] [address] Performed By: #### 2 4323-8, 3040-3 ####WARSAW LABORATORYCLIA [id number] [place] [address] [place] Urinalysis complete panel (U )on 05-19-2024 Bacteria LM.HPF (Urine sed) [#/Area] Rare Abnormal None Seen [facility] Comment on above: Order Comment: Speci [facility] Type: URINE SPECIMENOrdering Facility: [facility] Address: [address] [place] [address] Performed By: #### 2 4356-8 ####WARSAW LABORATORYCLIA [id number] [place] [address] [place] Bilirubin Ql (U) Negative Normal Negative [facility] Comment on above: Order Comment: Speci men Type: URINE SPECIMENOrdering Facility: [facility] Address: [address] [place] [address] Performed By: #### 2 4356-8 ####BOOTH LABORATORYCLIA [id number] [address] [place] Clarity (Unsp spec) Clear Normal Clear [facility] Comment on above: Order Comment: Speci men Type: URINE SPECIMENOrdering Facility: [facility] Address: [address] [place] [address] Performed By: #### 2 4356-8 ####BOOTH LABORATORYCLIA [id number] [place] [address] [place] Color (U) Yellow Normal Yellow [facility] Comment on above: Order Comment: Speci men Type: URINE SPECIMENOrdering Facility: [facility] Address: [address] [place] [address] Performed By: #### 2 4356-8 ####BOOTH LABORATORYCLIA [id number] [address] Epithelial cells LM.HPF (Urine sed) [#/Area] Few Normal [facility] Comment on above: Order Comment: Speci men Type: URINE SPECIMENOrdering Facility: [facility] Address: [address] [place] [address] Performed By: #### 2 4356-8 ####BOOTH LABORATORYCLIA [id number] [address] [place] Glucose Test strip (U) [Mass/Vol] Negative Normal Negative [facility] Comment on above: Order Comment: Speci men Type: URINE SPECIMENOrdering Facility: [facility] Address: [address] [place] [address] Performed By: #### 2 4356-8 ####BOOTH LABORATORYCLIA [id number] [address] [place] Hemoglobin Ql (U) Negative Normal Negative [facility] Comment on above: Order Comment: Speci men Type: URINE SPECIMENOrdering Facility: [facility] Address: [address] [place] [address] Performed By: #### 2 4356-8 ####BOOTH LABORATORYCLIA [id number] [address] Ketones Ql (U) 3+ Abnormal Negative [facility] Comment on above: Order Comment: Speci men Type: URINE SPECIMENOrdering Facility: [facility] Address: [address] [place] [address] Performed By: #### 2 4356-8 ####BOOTH LABORATORYCLIA [id number] [address] [place] Leukocyte esterase Test strip Ql (U) Negative Normal Negative [facility] Comment on above: Order Comment: Speci men Type: URINE SPECIMENOrdering Facility: [facility] Address: [address] [place] [address] Performed By: #### 2 4356-8 ####BOOTH LABORATORYCLIA [id number] [address] STATES [facility] Nitrite Ql (U) Negative Normal Negative [facility] Comment on above: Order Comment: Speci men Type: URINE SPECIMENOrdering Facility: [facility] Address: [address] [place] [address] Performed By: #### 2 4356-8 ####BOOTH LABORATORYCLIA [id number] [address] pH (U) 7.0 [pH] Normal 5.0-8.0 [facility] Comment on above: Order Comment: Speci men Type: URINE SPECIMENOrdering Facility: [facility] Address: [address] [place] [address] Performed By: #### 2 4356-8 ####BOOTH LABORATORYCLIA [id number] [address] Protein (U) [Mass/Vol] Negative Normal Negative [facility] Comment on above: Order Comment: Speci men Type: URINE SPECIMENOrdering Facility: [facility] Address: [address] [place] [address] Performed By: #### 2 4356-8 ####BOTOH LABORATORYCLIA [id number] [place] [address] [place] RBC LM.HPF (Urine sed) [#/Area] 0-3 /HPF Normal 0-3 /HPF [facility] Comment on above: Order Comment: Speci men Type: URINE SPECIMENOrdering Facility: [facility] Address: [address] [place] [address] Performed By: #### 2 4356-8 ####BOOTH LABORATORYCLIA [id number] [address] Specific gravity (U) [Rel density] 1.020 Normal 1.005-1.030 [facility] Comment on above: Order Comment: Speci men Type: URINE SPECIMENOrdering Facility: [facility] Address: [address] [place] [address] Performed By: #### 2 4356-8 ####BOOTH LABORATORYCLIA [id number] [address] [place] Urobilinogen Ql (U) 0.2 EU/dL Normal 0.2-1.0 EU/dL [facility] Comment on above: Order Comment: Speci men Type: URINE SPECIMENOrdering Facility: [facility] Address: [address] [place] [address] Performed By: #### 2 4356-8 ####WARSAW LABORATORYCLIA [id number] [address] WBC LM.HPF (Urine sed) [#/Area] 0-5 /HPF Normal 0-5 /HPF [facility] Comment on above: Order Comment: Speci men Type: URINE SPECIMENOrdering Facility: [facility] Address: [address] [place] [address] Performed By: #### 2 4356-8 ####BOOTH LABORATORYCLIA [id number] [address] [place] 05-18-2024 [place] Telephone ([facility]) -------- ROSY DOMINIQUE ([id number]) 3 F Date Time Provider Department 05/18/24 MOY LUND [facility] During your visit today, we recorded the following information about you: Moy Lund, RN 05/18/2024 1:51 PM Signed Referring Physician: January OB: Paras Seamer Operator: MARY-Victorino Alamo Rosy Dominique is a 18 year old with an of Estimated Date of Delivery: 11/20/24 HISTORY OF PRESENT ILLNESS: History of toxoplasmosis, non toxic single thyroid,seizures, palpitations, TMJ, nontoxic goiter Cardio-OB NURSING INTAKE OB history: Prior c/s, prior small for gestation age Cardiac history: 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 Discussion of the services offered including support, education, coordination of care and appointment scheduling. My contact information was provided and she was encouraged to call with any questions or concerns. She stated that she plans to keep her MFM care with [facility] and not [facility]. Offered to assist with scheduling appointments in the [facility] clinic. I explained the Cardio OB clinic and the purpose and function of the clinic. She is agreeable to an appointment on 06/30/24 at 1:45pm with Dr. Wall and . Also reviewed the multi-disciplinary team meetings in which patient's case will be discussed to optimize care planning. She is active on [employer]. I informed her that she will see an appointment time noted in [employer] for her echocardiogram. She is agreeable to the plan. . Allergies As of Date: 05/18/2024 Noted Allergy Reaction AMOXICILLIN 08/18/2022 2 - Rash 8 - GI Upset 16 - Unknown ANESTHETICS - AMIDE TYPE - SELECT*04/12/2024 14 - Other: See Comments BUPIVACAINE 08/23/2022 12 - Shortness of Breath CHLOROPROCAINE 08/23/2022 12 - Shortness of Breath COCONUT 06/14/2022 10 - Anaphylaxis 16 - Unknown DEXAMETHASONE 12/08/2022 9 - Itching HYDROCODONE 08/18/2022 9 - Itching 16 - Unknown LATEX 12/19/2021 14 - Other: See Comments 16 - Unknown LIDOCAINE 08/23/2022 12 - Shortness of Breath ONION EXTRACT 04/12/2024 14 - Other: See Comments VANCOMYCIN 08/20/2022 2 - Rash 14 - Other: See Comments VICODIN (HYDROCODONE-ACETAMINOPH E*08/18/2022 2 - Rash Date Reviewed: 05/12/2024 Reviewed by: Tiana Dowling RN - Fully Assessed Reason for Visit: [employer] Floorperson - Other [3602] Cmt: [facility] intro/intake Prescriptions as of 05/18/2024 - cephALEXin (KEFLEX) 500 mg capsule Take 1 capsule by mouth four times daily for 5 days. - gabapentin (NEURONTIN) 300 mg capsule Take 1 capsule by mouth three times a day for 90 days. - cyclobenzaprine (FLEXERIL) 10 mg tablet Take 0.5 tablets by mouth two times a day as needed. - blood sugar diagnostic test strip Use as directed to check glucose levels up to seven times daily. - Lancets Use as directed to check glucose levels up to seven times daily. - alcohol swabs (ALCOHOL PREP PADS) Use as directed to check glucose levels up to seven times daily. - vit calc,iron,folic (PRENAT.VITS,ANISH,MIN-IRO N-FOLIC ORAL) Take by mouth. 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] 09/29/2018 Nontoxic goiter, unspecified [E04.9] 04/09/2023 Toxoplasmosis affecting [O98.619, B58*04/07/2024 04/26/2024 Threatened premature labor, not delivered [O47.*04/28/2022 04/26/2024 Seizure (HCC) [R56.9] 07/24/2023 Premature rupture of membranes [O42.90] 08/16/2022 04/26/2024 Palpitations [R00.2] 06/13/2023 Cardiomyopathy (HCC) [I42.9] 04/07/2024 04/26/2024 Breech presentation [O32.1XX0] 08/16/2022 04/26/2024 Arthralgia of temporomandibular joint [M26.629] 04/30/2023 Encounter for supervision of high risk young mu*04/07/2024 History of delivery, currently *04/07/2024 with uncertain viability [O36.8*04/07/2024 04/26/2024 History of prior with small for gesta*04/07/2024 History of [Z98.891] 04/07/2024 History of toxoplasmosis [Z86.19] 04/07/2024 Antepartum diabetes mellitus [O24.919] 04/07/2024 04/26/2024 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] 04/07/2024 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] 04/07/2024 M-Power Referred [O99.891] 04/08/2024 Abdominal pain during in first trimes*04/15/2024 Encounter Status:Closed by MOY LUND on 05/18/24 [facility] 05-17-2024 CNPN Telephone ([facility]) -------- ROSY DOMINIQUE ([id number]) 3 F Date Time Provider Department 05/17/24 MOY LUND [facility] During your visit today, we recorded the following information about you: Moy Lund, RN 05/17/2024 9:36 AM Signed VM left with my contact info for Rosy to return call to schedule with [facility] Allergies As of Date: 05/17/2024 Noted Allergy Reaction AMOXICILLIN 08/18/2022 2 - Rash 8 - GI Upset 16 - Unknown ANESTHETICS - AMIDE TYPE - SELECT*04/12/2024 14 - Other: See Comments BUPIVACAINE 08/23/2022 12 - Shortness of Breath CHLOROPROCAINE 08/23/2022 12 - Shortness of Breath COCONUT 06/14/2022 10 - Anaphylaxis 16 - Unknown DEXAMETHASONE 12/08/2022 9 - Itching HYDROCODONE 08/18/2022 9 - Itching 16 - Unknown LATEX 12/19/2021 14 - Other: See Comments 16 - Unknown LIDOCAINE 08/23/2022 12 - Shortness of Breath ONION EXTRACT 04/12/2024 14 - Other: See Comments VANCOMYCIN 08/20/2022 2 - Rash 14 - Other: See Comments VICODIN (HYDROCODONE-ACETAMINOPH E*08/18/2022 2 - Rash Date Reviewed: 05/12/2024 Reviewed by: Tiana Dowling RN - Fully Assessed Reason for Visit: Appointment [186] Cmt: [facility] Prescriptions as of 05/17/2024 - cephALEXin (KEFLEX) 500 mg capsule Take 1 capsule by mouth four times daily for 5 days. - gabapentin (NEURONTIN) 300 mg capsule Take 1 capsule by mouth three times a day for 90 days. - cyclobenzaprine (FLEXERIL) 10 mg tablet Take 0.5 tablets by mouth two times a day as needed. - blood sugar diagnostic test strip Use as directed to check glucose levels up to seven times daily. - Lancets Use as directed to check glucose levels up to seven times daily. - alcohol swabs (ALCOHOL PREP PADS) Use as directed to check glucose levels up to seven times daily. - vit calc,iron,folic (PRENAT.VITS,ANISH,MIN-IRO N-FOLIC ORAL) Take by mouth. 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] 09/29/2018 Nontoxic goiter, unspecified [E04.9] 04/09/2023 Toxoplasmosis affecting [O98.619, B58*04/07/2024 04/26/2024 Threatened premature labor, not delivered [O47.*04/28/2022 04/26/2024 Seizure (HCC) [R56.9] 07/24/2023 Premature rupture of membranes [O42.90] 08/16/2022 04/26/2024 Palpitations [R00.2] 06/13/2023 Cardiomyopathy (HCC) [I42.9] 04/07/2024 04/26/2024 Breech presentation [O32.1XX0] 08/16/2022 04/26/2024 Arthralgia of temporomandibular joint [M26.629] 04/30/2023 Encounter for supervision of high risk young mu*04/07/2024 History of delivery, currently *04/07/2024 with uncertain viability [O36.8*04/07/2024 04/26/2024 History of prior with small for gesta*04/07/2024 History of [Z98.891] 04/07/2024 History of toxoplasmosis [Z86.19] 04/07/2024 Antepartum diabetes mellitus [O24.919] 04/07/2024 04/26/2024 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 Pt stable and ambulatory. IV removed. No further questions at this time. [facility] ED NOTE HNO ID: [id number] Author: JENNIFER AMAYA RN Service: Nursing Author Type: Registered Nurse Type: ED Notes Filed: 05/13/2024 01:04 Note Text: Report given to SCOTT Cervantes [facility] ALLIED HEALTHon 05-12-2024 ALLIED HEALTH HNO ID: [id number] Author: CHELSEY ROOT Tech Service: Radiology Author Type: Cardiopulmonary Physical Therapist Type: Allied Health Filed: 05/12/2024 23:04 Note Text: Radiology Service Progress Note PATIENT NAME: Rosy Dominique DATE OF SERVICE: May 12, 2024 TIME: 11:04 PM PATIENT IDENTITY VERIFICATION COMPLETED USING TWO (2) IDENTIFIERS: Name and Date of confirmed by patient verbally. FALL SCREENING: Has the patient had 2 falls in the last year or 1 fall with injury or currently using an Ambulatory Assistive Device (Walker, Cane, Wheelchair, Crutches, etc.)? Emergency Room Patient: Screened in ED PATIENT GENDER DATA: Female. status: : Yes. Internal Quality Check OK. Urinalysis hCG results are as follows: Positive Reference Range: Negative status: N/A PATIENT RELEVANT IMPLANT DATA REVIEWED: Not Applicable PATIENT PRESENTS WITH AN IMPLANTABLE OR ATTACHED SHELLFISH HARVESTER: No RADIOLOGY DEPARTMENT: Ultrasound PERIPHERAL IV DATA: Not applicable SIGNED BY: Wilmer Donahue May 12, 2024 11:[address] [facility] Bacteria Ur Culton Bacteria identified Cx Nom (U) CULTURE, URINE: Normal urogenital randy: ORGANISM ID: 1 >=100,000 CFU/ml Lactobacillus species No further workup Normal [facility] Comment on above: Performed By: #### 6 30-4 ####[facility] LAB[facility] [id number] [place] [address] [place] Basic metabolic 2000 panelon 05-12-2024 Anion gap [Moles/Vol] 11 mmol/L Normal 8-15 [facility] Comment on above: Order Comment: Speci men Type: BLOOD SPECIMENOrdering Facility: [facility] Address: [address] [place] [address] Performed By: #### 2 4321-2 ####[facility] LABORATORYCLIA [id number] [place] [address] [place] Calcium [Mass/Vol] 9.7 mg/dL Normal 8.5-10.2 [facility] Comment on above: Order Comment: Speci men Type: BLOOD SPECIMENOrdering Facility: [facility] Address: [address] [place] [address] Performed By: #### 2 4321-2 ####[facility] LABORATORYCLIA [id number] [place] [address] [place] Chloride [Moles/Vol] 103 mmol/L Normal 98-107 [facility] Comment on above: Order Comment: Arden roman Type: BLOOD SPECIMENOrdering Facility: [facility] Address: [address] [place] [address] Performed By: #### 2 4321-2 ####[facility] LABORATORYCLIA [id number] [place] [address] [place] CO2 [Moles/Vol] 22 mmol/L Normal 22-30 [facility] Comment on above: Order Comment: Speci men Type: BLOOD SPECIMENOrdering Facility: [facility] Address: [address] [place] [address] Performed By: #### 2 4321-2 ####[facility] LABORATORYCLIA [id number] [address] STATES [facility] Creatinine [Mass/Vol] 0.72 mg/dL Normal 0.58-0.96 [facility] Comment on above: Order Comment: Arden men Type: BLOOD SPECIMENOrdering Facility: [facility] Address: [address] [place] [address] Performed By: #### 2 4321-2 ####[facility] LABORATORYCLIA [id number] [address] Creatinine and Glomerular filtration rate.predicted panel (S/P/Bld) 124 mL/min/1.73m??? Normal >=60 [facility] Comment on above: Order Comment: Arden jessie Type: BLOOD SPECIMENOrdering Facility: [facility] Address: [address] [place] [address] Result Comment: Trupti mated Glomerular Filtration Rate (eGFR) is calculated using the 2020 CKD-EPI creatinine equation. This equation utilizes serum creatinine, sex, and age as parameters. The creatinine assay has traceable calibration to isotope dilution-mass spectrometry. Refer to KDIGO guidelines for clinical interpretation. In patients with unstable renal function, e.g. those with acute kidney injury, the eGFR may not accurately reflect actual GFR. Performed By: #### 2 4321-2 ####[facility] LABORATORYCLIA [id number] [address] [place] Glucose [Mass/Vol] 83 mg/dL Normal 74-99 [facility] Comment on above: Order Comment: Arden jessie Type: BLOOD SPECIMENOrdering Facility: [facility] Address: [address] [place] [address] Result Comment: The [place] Diabetes [employer] (ADA) provides guidance for cutoff values for fasting glucose and random glucose. The ADA defines fasting as no caloric intake for at least 8 hours. Fasting plasma glucose results between 100 to 125 mg/dL indicate increased risk for diabetes (prediabetes). Fasting plasma glucose results greater than or equal to 126 mg/dL meet the criteria for diagnosis of diabetes. In the absence of unequivocal hyperglycemia, results should be confirmed by repeat testing. In a patient with classic symptoms of hyperglycemia or hyperglycemic crisis, random plasma glucose results greater than or equal to 200 mg/dL meet the criteria for diagnosis of diabetes. Reference: Standards of Medical Care in Diabetes 2016, [place] [employer] Association. Diabetes Care. 2016.39(Suppl 1). Performed By: #### 2 4321-2 ####[facility] LABORATORYCLIA [id number] [place] [address] [place] Potassium [Moles/Vol] 3.7 mmol/L Normal 3.7-5.1 [facility] Comment on above: Order Comment: Arden roman Type: BLOOD SPECIMENOrdering Facility: [facility] Address: [address] [place] [address] Performed By: #### 2 4321-2 ####[facility] LABORATORYCLIA [id number] [place] [id number] [place] Sodium [Moles/Vol] 136 mmol/L Normal 136-144 [facility] Comment on above: Order Comment: Kavehi men Type: BLOOD SPECIMENOrdering Facility: [facility] Address: [address] [place] [address] Performed By: #### 2 4321-2 ####[facility] LABORATORYCLIA [id number] [place] [address] [place] Urea nitrogen [Mass/Vol] 7 mg/dL Normal 7-21 [facility] Comment on above: Order Comment: Arden roman Type: BLOOD SPECIMENOrdering Facility: [facility] Address: [address] [place] [address] Performed By: #### 2 4321-2 ####[facility] LABORATORYCLIA [id number] [place] [address] [place] CBC W Auto Differential pane l (Bld)on 05-12-2024 Basophils (Bld) [#/Vol] 10*3/uL Normal <0.11 [facility] Comment on above: Order Comment: Speci men Type: BLOOD SPECIMENOrdering Facility: [facility] Address: [address] [place] [address] Performed By: #### 5 7021-8 ####[facility] LABORATORYCLIA [id number] [address] STATES [facility] Basophils/100 WBC (Bld) 0.2 % Normal [facility] Comment on above: Order Comment: Speci men Type: BLOOD SPECIMENOrdering Facility: [facility] Address: [address] [place] [address] Performed By: #### 5 7021-8 ####[facility] LABORATORYCLIA [id number] [address] Differential cell count method Nom (Bld) Auto Normal [facility] Comment on above: Order Comment: Speci men Type: BLOOD SPECIMENOrdering Facility: [facility] Address: [address] [place] [address] Performed By: #### 5 7021-8 ####[facility] LABORATORYCLIA [id number] [address] [place] Eosinophils (Bld) [#/Vol] 0.09 10*3/uL Normal <0.46 [facility] Comment on above: Order Comment: Speci men Type: BLOOD SPECIMENOrdering Facility: [facility] Address: [address] [place] [address] Performed By: #### 5 7021-8 ####[facility] LABORATORYCLIA [id number] [address] Eosinophils/100 WBC (Bld) 1.5 % Normal [facility] Comment on above: Order Comment: Speci men Type: BLOOD SPECIMENOrdering Facility: [facility] Address: [address] [place] [address] Performed By: #### 5 7021-8 ####[facility] LABORATORYCLIA [id number] [address] [place] Erythrocyte distribution width (RBC) [Ratio] 14.0 % Normal 11.5-15.0 [facility] Comment on above: Order Comment: Speci men Type: BLOOD SPECIMENOrdering Facility: [facility] Address: [address] [place] [address] Performed By: #### 5 7021-8 ####[facility] LABORATORYCLIA [id number] [place] [address] [place] Hematocrit (Bld) [Volume fraction] 34.2 % Low 36.0-46.0 [facility] Comment on above: Order Comment: Speci men Type: BLOOD SPECIMENOrdering Facility: [facility] Address: [address] [place] [address] Performed By: #### 5 7021-8 ####[facility] LABORATORYCLIA [id number] [place] [address] [place] Hemoglobin (Bld) [Mass/Vol] 11.8 g/dL Normal 11.5-15.5 [facility] Comment on above: Order Comment: Speci men Type: BLOOD SPECIMENOrdering Facility: [facility] Address: [address] [place] [address] Performed By: #### 5 7021-8 ####[facility] LABORATORYCLIA [id number] [address] [place] Immature granulocytes (Bld) [#/Vol] 0.03 10*3/uL Normal <0.10 [facility] Comment on above: Order Comment: Speci men Type: BLOOD SPECIMENOrdering Facility: [facility] Address: [address] [place] [address] Performed By: #### 5 7021-8 ####[facility] LABORATORYCLIA [id number] [address] [place] Immature granulocytes/100 WBC (Bld) 0.5 % Normal [facility] Comment on above: Order Comment: Speci men Type: BLOOD SPECIMENOrdering Facility: [facility] Address: [address] [place] [address] Performed By: #### 5 7021-8 ####[facility] LABORATORYCLIA [id number] [address] [place] Lymphocytes (Bld) [#/Vol] 2.07 10*3/uL Normal 1.00-4.00 [facility] Comment on above: Order Comment: Speci men Type: BLOOD SPECIMENOrdering Facility: [facility] Address: [address] [place] [address] Performed By: #### 5 7021-8 ####[facility]ORATORYCLIA [id number] [address] Lymphocytes/100 WBC (Bld) 34.1 % Normal [facility] Comment on above: Order Comment: Speci men Type: BLOOD SPECIMENOrdering Facility: [facility] Address: [address] [place] [address] Performed By: #### 5 7021-8 ####[facility] LABORATORYCLIA [id number] [address] MCH (RBC) [Entitic mass] 29.3 pg Normal 26.0-34.0 [facility] Comment on above: Order Comment: Speci men Type: BLOOD SPECIMENOrdering Facility: [facility] Address: [address] [place] [address] Performed By: #### 5 7021-8 ####[facility] LABORATORYCLIA [id number] [address] MCHC (RBC) [Mass/Vol] 34.5 g/dL Normal 30.5-36.0 [facility] Comment on above: Order Comment: Speci men Type: BLOOD SPECIMENOrdering Facility: [facility] Address: [address] [place] [address] Performed By: #### 5 7021-8 ####[facility] LABORATORYCLIA [id number] [address] MCV (RBC) [Entitic vol] 84.9 fL Normal 80.0-100.0 [facility] Comment on above: Order Comment: Speci men Type: BLOOD SPECIMENOrdering Facility: [facility] Address: [address] [place] [address] Performed By: #### 5 7021-8 ####[facility] LABORATORYCLIA [id number] [place] [address] [place] Monocytes (Bld) [#/Vol] 0.35 10*3/uL Normal <0.87 [facility] Comment on above: Order Comment: Speci men Type: BLOOD SPECIMENOrdering Facility: [facility] Address: [address] [place] [address] Performed By: #### 5 7021-8 ####[facility] LABORATORYCLIA [id number] [place] [address] [place] Monocytes/100 WBC (Bld) 5.8 % Normal [facility] Comment on above: Order Comment: Speci men Type: BLOOD SPECIMENOrdering Facility: [facility] Address: [address] [place] [address] Performed By: #### 5 7021-8 ####[facility] LABORATORYCLIA [id number] [place] [address] [place] Neutrophils (Bld) [#/Vol] 3.52 10*3/uL Normal 1.45-7.50 [facility] Comment on above: Order Comment: Speci men Type: BLOOD SPECIMENOrdering Facility: [facility] Address: [address] [place] [address] Performed By: #### 5 7021-8 ####[facility] LABORATORYCLIA [id number] [place] [address] [place] Neutrophils/100 WBC (Bld) 57.9 % Normal [facility] Comment on above: Order Comment: Speci men Type: BLOOD SPECIMENOrdering Facility: [facility] Address: [address] [place] [address] Performed By: #### 5 7021-8 ####[facility] LABORATORYCLIA [id number] [place] [address] [place] Nucleated RBC (Bld) [#/Vol] 10*3/uL Normal <0.01 [facility] Comment on above: Order Comment: Speci men Type: BLOOD SPECIMENOrdering Facility: [facility] Address: [address] [place] [address] Performed By: #### 5 7021-8 ####[facility] LABORATORYCLIA [id number] [place] [address] [place] Nucleated RBC/100 WBC (Bld) [Ratio] 0.0 /100 WBC Normal [facility] Comment on above: Order Comment: Speci men Type: BLOOD SPECIMENOrdering Facility: [facility] Address: [address] [place] [address] Performed By: #### 5 7021-8 ####[facility] LABORATORYCLIA [id number] [place] [address] [place] Platelet mean volume (Bld) [Entitic vol] 11.4 fL Normal 9.0-12.7 [facility] Comment on above: Order Comment: Speci men Type: BLOOD SPECIMENOrdering Facility: [facility] Address: [address] [place] [address] Performed By: #### 5 7021-8 ####[facility] LABORATORYCLIA [id number] [place] [address] [place] Platelets (Bld) [#/Vol] 207 10*3/uL Normal 150-400 [facility] Comment on above: Order Comment: Speci men Type: BLOOD SPECIMENOrdering Facility: [facility] Address: [address] [place] [address] Performed By: #### 5 7021-8 ####[facility] LABORATORYCLIA [id number] [place] [address] [place] RBC (Bld) [#/Vol] 4.03 10*6/uL Normal 3.90-5.20 [facility] Comment on above: Order Comment: Speci men Type: BLOOD SPECIMENOrdering Facility: [facility] Address: [address] [place] [address] Performed By: #### 5 7021-8 ####[facility] LABORATORYCLIA [id number] [place] [address] [place] WBC (Bld) [#/Vol] 6.07 10*3/uL Normal 3.70-11.00 [facility] Comment on above: Order Comment: Speci men Type: BLOOD SPECIMENOrdering Facility: [facility] Address: [address], [place] [address] Performed By: #### 5 7021-8 ####[facility] LABORATORYCLIA [id number] [place] [address] [place] CNPNon 05-12-2024 CNPN Telephone ([facility]) -------- ROSY DOMINIQUE ([id number]) 3 F Date Time Provider Department 05/12/24 MARIN RAMIREZ During your visit today, we recorded the following information about you: Thais Schroeder 05/12/2024 12:04 PM Signed ----- Message from Marin Ramirez MD sent at 05/11/2024 7:02 PM EDT ----- Regarding: New High risk patient [place], Per Dr. Hassan, can you add this patient to high risk clinic within the next few weeks? She was seen by Dr. Ramirez, so she doesn't need an MFM initial consult, but if you can add her to high risk for SIVA in the next few weeks. She'll also need serial cervical length screenings started at 16 weeks for a hx of delivery per her chart review. Thanks. Marin ----- Message ----- From: Ashely Hassan MD Sent: 05/11/2024 9:50 AM EDT To: Marin Ramirez MD Hey, Can you add this patient to the resident high risk clinic. Seen by Dr. Ramirez and is planning on delivering in [place]. Thanks, Thais Davidson 05/12/2024 1:06 PM Signed Spoke with patient, HROB appointment scheduled. Thais Schroeder May 12, 2024 1:06 PM Allergies As of Date: 05/12/2024 Noted Allergy Reaction AMOXICILLIN 08/18/2022 2 - Rash 8 - GI Upset 16 - Unknown ANESTHETICS - AMIDE TYPE - SELECT*04/12/2024 14 - Other: See Comments BUPIVACAINE 08/23/2022 12 - Shortness of Breath CHLOROPROCAINE 08/23/2022 12 - Shortness of Breath COCONUT 06/14/2022 10 - Anaphylaxis 16 - Unknown DEXAMETHASONE 12/08/2022 9 - Itching HYDROCODONE 08/18/2022 9 - Itching 16 - Unknown LATEX 12/19/2021 14 - Other: See Comments 16 - Unknown LIDOCAINE 08/23/2022 12 - Shortness of Breath ONION EXTRACT 04/12/2024 14 - Other: See Comments VANCOMYCIN 08/20/2022 2 - Rash 14 - Other: See Comments VICODIN (HYDROCODONE-ACETAMINOPH E*08/18/2022 2 - Rash Date Reviewed: 05/09/2024 Reviewed by: Sasha Ramirez PA-C - Fully Assessed Reason for Visit: Appointment [186] Prescriptions as of 05/12/2024 - gabapentin (NEURONTIN) 300 mg capsule Take 1 capsule by mouth three times a day for 90 days. - cyclobenzaprine (FLEXERIL) 10 mg tablet Take 0.5 tablets by mouth two times a day as needed. - blood sugar diagnostic test strip Use as directed to check glucose levels up to seven times daily. - Lancets Use as directed to check glucose levels up to seven times daily. - alcohol swabs (ALCOHOL PREP PADS) Use as directed to check glucose levels up to seven times daily. - vit calc,iron,folic (PRENAT.VITS,ANISH,MIN-IRO N-FOLIC ORAL) Take by mouth. 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] 09/29/2018 Nontoxic goiter, unspecified [E04.9] 04/09/2023 Toxoplasmosis affecting [O98.619, B58*04/07/2024 04/26/2024 Threatened premature labor, not delivered [O47.*04/28/2022 04/26/2024 Seizure (HCC) [R56.9] 07/24/2023 Premature rupture of membranes [O42.90] 08/16/2022 04/26/2024 Palpitations [R00.2] 06/13/2023 Cardiomyopathy (HCC) [I42.9] 04/07/2024 04/26/2024 Breech presentation [O32.1XX0] 08/16/2022 04/26/2024 Arthralgia of temporomandibular joint [M26.629] 04/30/2023 Encounter for supervision of high risk young mu*04/07/2024 History of delivery, currently *04/07/2024 with uncertain viability [O36.8*04/07/2024 04/26/2024 History of prior with small for gesta*04/07/2024 History of [Z98.891] 04/07/2024 History of toxoplasmosis [Z86.19] 04/07/2024 Antepartum diabetes mellitus [O24.919] 04/07/2024 04/26/2024 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] 04/07/2024 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] 04/07/2024 M-Power Referred [O99.891] 04/08/2024 Abdominal pain during in first trimes*04/15/2024 Encounter Status:Closed by THAIS SCHROEDER on 05/12/24 [facility] ED PROV NOTEon 05-12-2024 ED PROV NOTE HNO ID: [id number] Author: LOU MARIN DO Service: Emergency Medicine Author Type: Physician Type: ED Provider Notes Filed: 05/13/2024 06:33 Note Text: ED Provider Note Patient Name: Rosy Dominique : 2005 SERVICE DATE: 05/12/24 History Patient presents with: Headache: Migraine started aprox 1 week ago, was seen in ED and given migraine cocktail with relief for 1/2 day and started again yesterday. : Pt reports she is 13 weeks and her mucous plug came out this am. Rosy Dominique is a 18-year-old female, , currently 13 weeks , with history of Brugada syndrome, chronic daily headache, type 1 diabetes, POTS, presents for a headache. She states she has had this headache for about a week. She states it is in the back of the head and radiates forward. No difference with her normal headaches. She has not really taken anything at home for this. She states that she was on a migraine shot in the past but she stopped taking it because she did not know if it really worked. She has not seen neurology in 2 or 3 years. She notes that she also thinks she may have lost her mucous plug this morning. Denies vaginal bleeding. She has had some right lower pelvic pain as well since this morning. She has not called her CLASSIFIED ADVERTISING CLERK because she states she does not have their contact information. She is not really sure who her primary CLASSIFIED ADVERTISING CLERK is because she states they are making her see a bunch of people. He was seen in the ED on May 09 for headache and was given a migraine cocktail did help for about 1.5 days. PAST MEDICAL HISTORY Diagnosis Date Breast abscess of female right Brugada syndrome Chronic daily headache Complication of anesthesia Diabetes mellitus type I (HCC) Diabetes, gestational NEGATIVE MEDICAL HISTORY 11/10/2015 Normal Color Vision POTS (postural orthostatic tachycardia syndrome) Seizure (HCC) Thyroid disease Trauma PAST SURGICAL HISTORY Procedure Laterality Date DELIVERY ONLY 06/14/2022 L'SCOPE DX W/WO BRUSHINGS/WASHINGS 03/17/2024 [place] to r/o ectopic MASTOTOMY W/EXPLORATION/DRAINAGE ABSCESS DEEP Right 08/18/2022 FAMILY HISTORY Problem Relation Age of Onset None Mother None Father Diabetes Paternal Grandfather Social History Tobacco Use Smoking status: Never Passive exposure: Yes Smokeless tobacco: Current Tobacco comments: vape Vaping Use Vaping Use: Former Substances: Nicotine Substance and Sexual Activity Alcohol use: No Drug use: Never Sexual activity: Yes Partners: Male ALLERGIES Allergen Reactions Amoxicillin Rash, GI Upset, Unknown Anesthetics - Amide* Other: See Comments Bupivacaine Shortness of Breath Chloroprocaine Shortness of Breath Coconut Anaphylaxis, Unknown Dexamethasone Itching Hydrocodone Itching, Unknown Latex Other: See Comments, Unknown Lidocaine Shortness of Breath Onion Extract Other: See Comments Vancomycin Rash, Other: See Comments Vicodin [Hydrocodon* Rash Review of Systems Genitourinary: Positive for pelvic pain and vaginal discharge. Neurological: Positive for headaches. Physical Exam Vitals [05/12/242124] BP Pulse Temp Temp src Resp SpO2 Weight Height 101/66 90 36.6 ?C (97.9 ?F) Temporal 20 98 % 58.1 kg (128 lb) -- Physical Exam Vitals and nursing note reviewed. Constitutional: General: She is not in acute distress. Appearance: Normal appearance. She is well-developed. She is not diaphoretic. HENT: Head: Normocephalic and atraumatic. Right Ear: Tympanic membrane normal. Left Ear: Tympanic membrane normal. Nose: Nose normal. Mouth/Throat: Mouth: Mucous membranes are moist. Pharynx: No oropharyngeal exudate. Eyes: General: No scleral icterus. Pupils: Pupils are equal, round, and reactive to light. Neck: Vascular: No JVD. Cardiovascular: Rate and Rhythm: Normal rate and regular rhythm. Heart sounds: Normal heart sounds. No murmur heard. No friction rub. No gallop. Pulmonary: Effort: Pulmonary effort is normal. No respiratory distress. Breath sounds: Normal breath sounds. No wheezing or rales. Abdominal: General: Bowel sounds are normal. There is no distension. Palpations: Abdomen is soft. There is no mass. Tenderness: There is no abdominal tenderness. There is no guarding or rebound. Musculoskeletal: General: Normal range of motion. Cervical back: Neck supple. Skin: General: Skin is warm and dry. Capillary Refill: Capillary refill takes less than 2 seconds. Findings: No erythema or rash. Neurological: Mental Status: She is alert and oriented to person, place, and time. Psychiatric: Behavior: Behavior normal. Thought Content: Thought content normal. Judgment: Judgment normal. Diagnostic Testing ED Labs Ordered and Reviewed - No data to display Procedures ED Course / Clinical Impression ED Course as of 05/13/24 0630 Lou Marin (more content not included)... Normal [facility] URINALYSIS, REFLEX MICROSCOP ICon 05-12-2024 Bacteria LM.HPF (Urine sed) [#/Area] Many Abnormal None Seen [facility] Comment on above: Order Comment: Speci men Type: URINE SPECIMENOrdering Facility: [facility] Address: [address] [place] [address] Performed By: #### L [id number] ####[facility] LABORATORYCLIA [id number] [place] [address] [place] Bilirubin Ql (U) Negative Normal Negative [facility] Comment on above: Order Comment: Speci men Type: URINE SPECIMENOrdering Facility: [facility] Address: [address] [place] [address] Performed By: #### L [id number] ####[facility] LABORATORYCLIA [id number] [place] [address] [place] Clarity (Unsp spec) Slightly Cloudy Abnormal Clear [facility] Comment on above: Order Comment: Speci men Type: URINE SPECIMENOrdering Facility: [facility] Address: [address] [place] [address] Performed By: #### L [id number] ####BO[facility] LABORATORYCLIA [id number] [address] [place] Color (U) Yellow Normal Yellow [facility] Comment on above: Order Comment: Speci men Type: URINE SPECIMENOrdering Facility: [facility] Address: [address] [place] [address] Performed By: #### L [id number] ####BOOTH LABORATORYCLIA [id number] [place] [address] [place] Epithelial cells LM.HPF (Urine sed) [#/Area] Moderate Normal [facility] Comment on above: Order Comment: Speci men Type: URINE SPECIMENOrdering Facility: [facility] Address: [address] [place] [address] Result Comment: Few Performed By: #### L [id number] ####BOOTH LABORATORYCLIA [id number] [place] [address] [place] [facility] [place] Glucose Test strip (U) [Mass/Vol] Negative Normal Negative [facility] Comment on above: Order Comment: Speci men Type: URINE SPECIMENOrdering Facility: [facility] Address: [address] [place] [address] Performed By: #### L [id number] ####BOOTH LABORATORYCLIA [id number] [place] [address] [place] Hemoglobin Ql (U) Negative Normal Negative [facility] Comment on above: Order Comment: Speci men Type: URINE SPECIMENOrdering Facility: [facility] Address: [address] [place] [address] Performed By: #### L [id number] ####BOOTH LABORATORYCLIA [id number] [address] Ketones Ql (U) Negative Normal Negative [facility] Comment on above: Order Comment: Speci men Type: URINE SPECIMENOrdering Facility: [facility] Address: [address] [place] [address] Performed By: #### L [id number] ####BOOTH LABORATORYCLIA [id number] [address] Leukocyte esterase Test strip Ql (U) 1+ Abnormal Negative [facility] Comment on above: Order Comment: Speci men Type: URINE SPECIMENOrdering Facility: [facility] Address: [address] [place] [address] Performed By: #### L [id number] ####BOOTH LABORATORYCLIA [id number] [place] [address] [place] Nitrite Ql (U) Negative Normal Negative [facility] Comment on above: Order Comment: Speci men Type: URINE SPECIMENOrdering Facility: [facility] Address: [address] [place] [address] Performed By: #### L [id number] ####BOOTH LABORATORYCLIA [id number] [address] [place] pH (U) 6.0 [pH] Normal 5.0-8.0 [facility] Comment on above: Order Comment: Speci men Type: URINE SPECIMENOrdering Facility: [facility] Address: [address] [place] [address] Performed By: #### L [id number] ####BOOTH LABORATORYCLIA [id number] [address] Protein (U) [Mass/Vol] Negative Normal Negative [facility] Comment on above: Order Comment: Speci men Type: URINE SPECIMENOrdering Facility: [facility] Address: [address] [place] [address] Performed By: #### L [id number] ####BOOTH LABORATORYCLIA [id number] [place] [address] [place] RBC LM.HPF (Urine sed) [#/Area] 0-3 /HPF Normal 0-3 /HPF [facility] Comment on above: Order Comment: Speci men Type: URINE SPECIMENOrdering Facility: [facility] Address: [address] [place] [address] Performed By: #### L [id number] ####[facility] LABORATORYCLIA [id number] [address] Specific gravity (U) [Rel density] >=1.030 High 1.005-1.030 [facility] Comment on above: Order Comment: Speci men Type: URINE SPECIMENOrdering Facility: [facility] Address: [address] [place] [address] Performed By: #### L [id number] ####WARSA[facility] LABORATORYCLIA [id number] [address] Urobilinogen Ql (U) 0.2 EU/dL Normal 0.2-1.0 EU/dL [facility] Comment on above: Order Comment: Speci men Type: URINE SPECIMENOrdering Facility: [facility] Address: [address] [place] [address] Performed By: #### L [id number] ####[facility] HOSPITALCLIA [id number] [address] WBC LM.HPF (Urine sed) [#/Area] 6-10 /HPF Abnormal 0-5 /HPF [facility] Comment on above: Order Comment: Speci men Type: URINE SPECIMENOrdering Facility: [facility] Address: [address] [place] [address] Performed By: #### L [id number] ####WARSAW LABORATORYCLIA [id number] [place] [address] [place] US PREG TRANSABD <14 WKS LTD on 05-12-2024 PREG TRANSABD <14 WKS LTD * * *Final Report* * * DATE OF EXAM: May 12 2024 11:04PM U 1035 - US PREG TRANSABD <14 WKS LTD / PROCEDURE REASON: Pelvic pain, positive beta-HCG, special shopper etiology suspected * * * * Physician Interpretation * * * * EXAMINATION: FIRST TRIMESTER TRANSVAGINAL AND TRANSABDOMINAL PELVIC ULTRASOUND CLINICAL HISTORY: Pain TECHNIQUE: Sonography of the pelvis was performed by transabdominal and transvaginal techniques. Images were obtained and stored in a permanent archive. MQ: [email or web address]_[email or web address] COMPARISON: 05/11/2024, 03/28/2024 RESULT: Uterus: - Orientation: Anteverted - Size: 12.5 x 10.4 x 7.8 cm - Myometrium: homogeneous echogenicity - Cervix: 3.1cm, closed with no funneling Gestation: - Intrauterine gestational sac: Not seen - Mean Sac Diameter: 6 cm, corresponding gestational age 12 week 1 days - Yolk sac not seen - Embryo: Single present - [place] rump length: 5.4 cm, corresponding gestational age 12 weeks, 1 days -Gestational heart rate: present 170 bpm -Subgestational hematoma: Absent Right ovary: Not seen Left ovary: - Size: 3.8 x 3.3 x 2.6 cm - Normal sonographic appearance with physiologic follicles. Corpus luteum cyst measures 2.7 x 2.8 x 1.9 cm. Pelvis free fluid: None. IMPRESSION: Single, live intrauterine gestation. Estimated Gestational Age: 12 weeks, 1 days by crown rump length. 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 US PREG TRANSVAG <14 WEEKSon 05-12-2024 US PREG TRANSVAG <14 WEEKS * * *Final Report* * * DATE OF EXAM: May 12 2024 11:04PM THEODORE 1034 - US PREG TRANSVAG <14 WEEKS / PROCEDURE REASON: Pelvic pain, positive beta-HCG, special shopper etiology suspected * * * * Physician Interpretation * * * * EXAMINATION: FIRST TRIMESTER TRANSVAGINAL AND TRANSABDOMINAL PELVIC ULTRASOUND CLINICAL HISTORY: Pain TECHNIQUE: Sonography of the pelvis was performed by transabdominal and transvaginal techniques. Images were obtained and stored in a permanent archive. MQ: [email or web address]_1 COMPARISON: 05/11/2024, 03/28/2024 RESULT: Uterus: - Orientation: Anteverted - Size: 12.5 x 10.4 x 7.8 cm - Myometrium: homogeneous echogenicity - Cervix: 3.1cm, closed with no funneling Gestation: - Intrauterine gestational sac: Not seen - Mean Sac Diameter: 6 cm, corresponding gestational age 12 week 1 days - Yolk sac not seen - Embryo: Single present - [place] rump length: 5.4 cm, corresponding gestational age 12 weeks, 1 days -Gestational heart rate: present 170 bpm -Subgestational hematoma: Absent Right ovary: Not seen Left ovary: - Size: 3.8 x 3.3 x 2.6 cm - Normal sonographic appearance with physiologic follicles. Corpus luteum cyst measures 2.7 x 2.8 x 1.9 cm. Pelvis free fluid: None. IMPRESSION: Single, live intrauterine gestation. Estimated Gestational Age: 12 weeks, 1 days by crown rump length. 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 - Single, live, intrauterine . - [place] rump length measurement is consistent with the established gestational age. - A qualitative screen of the nuchal translucency and other anatomic structures were unremarkable on a complete first trimester anatomic assessment. - Not all structural malformations can be detected by ultrasound examination. Maternal Structures: Right Ovary: Size 34 mm x 20 mm x 20 mm Left Ovary: Size 30 mm x 34 mm x 29 mm Recommendations Return at 16 weeks to begin Maternal Assessment Height 175 cm Height (ft) 5 ft Height (in) 9 in Physical Exam Initial weight (lb) 120 lb Initial BMI 17.72 kg/m Maternal assessment other: 7 Para 1 Method Transabdominal and transvaginal ultrasound examination [place] . Number of fetuses: 1 Dating GA by prior assessment 12 w + 3 d SCOTT by prior assessment: 11/20/2024 Ultrasound examination on: 05/11/2024 GA by U/S based upon: CRL GA by U/S 12 w + 0 d SCOTT by U/S: 11/23/2024 Assigned: based on stated SCOTT, selected on 05/11/2024 Assigned GA 12 w + 3 d Assigned SCOTT: 11/20/2024 General Evaluation Cardiac activity present Placenta: anterior Cord vessels: 3 vessel cord Amniotic fluid: normal amount Biometry Standard FHR 159 bpm CRL 52.3 mm 12w 0d 7% [place] First Trimester Anatomy Calvarium: normal Falx cerebri: normal Choroid plexus: normal Profile: normal Nasal bone: normal Retronasal triangle: normal Maxilla: normal Mandible: normal Nuchal translucency: Subjectively normal Situs: normal Cardiac position: normal Cardiac axis: normal 4-chamber view: normal 4-chamber view with color: normal [id number] view: normal Abdominal cord insertion: normal Stomach: normal Kidneys: normal Bladder: normal Color doppler of perivesical umbilical arteries: normal Vertebral alignment: normal Arms: normal Hands: normal Legs: normal Feet: normal Maternal Structures Uterus / Cervix Uterus: Visualized Uterus length 112 mm Uterus width 107 mm Uterus height 90 mm Uterus Vol 561.7 cm Ovaries / Tubes / Adnexa Rt ovary: Visualized Rt ovary D1 34 mm Rt ovary D2 20 mm Rt ovary D3 20 mm Rt ovary Vol 7.1 cm Lt ovary: Visualized Lt ovary D1 30 mm Lt ovary D2 34 mm Lt ovary D3 29 mm Lt ovary Vol 15.3 cm Performed By: Macrina Acosta RDMS, RVT Read By: Anya Nagy M.D. MATERNAL MEDICINE [facility] Radiology Study observation (narrative) [facility] ED PROV NOTEon 05-09-2024 ED PROV NOTE HNO ID: [id number] Author: SASHA RAMIREZ PA-C Service: Emergency Medicine Author Type: Physician Generalist Type: ED Provider Notes Filed: 05/09/2024 19:10 Note Text: ED Provider Note Patient Name: Rosy Dominique : 2005 SERVICE DATE: 05/09/24 History Patient presents with: Headache: Pt has chronic migraines, but today woke from a nap around 1530 with 9/10 FERNÁNDEZ and blurred vision. Pt states that she has experienced blurred vision in the past with other migraines. Pt is 12 wks and is unable to take her usual migraine injections at this time This patient comes in with complaints of a bilateral frontal headache. This headache has been there for about 1 week and is not being controlled well with her typical migraine headaches. Patient recognizes it 9 out of 10 pain and has some blurriness of her vision which is typical with her migraines. She does not describe this as an atypical migraine. Also does not describes as a thunderclap headache or the worst headache she can imagine. She is currently 12 weeks , not complaining of any related complications. The patient tells me typically she gets a migraine cocktail and that resolves her headaches. PAST MEDICAL HISTORY Diagnosis Date Breast abscess of female right Brugada syndrome Chronic daily headache Complication of anesthesia Diabetes mellitus type I (HCC) Diabetes, gestational NEGATIVE MEDICAL HISTORY 11/10/2015 Normal Color Vision POTS (postural orthostatic tachycardia syndrome) Seizure (HCC) Thyroid disease Trauma PAST SURGICAL HISTORY Procedure Laterality Date DELIVERY ONLY 06/14/2022 L'SCOPE DX W/WO BRUSHINGS/WASHINGS 03/17/2024 [place] to r/o ectopic MASTOTOMY W/EXPLORATION/DRAINAGE ABSCESS DEEP Right 08/18/2022 FAMILY HISTORY Problem Relation Age of Onset None Mother None Father Diabetes Paternal Grandfather Social History Tobacco Use Smoking status: Never Passive exposure: Yes Smokeless tobacco: Current Tobacco comments: vape Vaping Use Vaping Use: Former Substances: Nicotine Substance and Sexual Activity Alcohol use: No Drug use: Never Sexual activity: Yes Partners: Male ALLERGIES Allergen Reactions Amoxicillin Rash, GI Upset, Unknown Bupivacaine Shortness of Breath Chloroprocaine Shortness of Breath Coconut Anaphylaxis, Unknown Dexamethasone Itching Hydrocodone Itching, Unknown Latex Other: See Comments, Unknown Lidocaine Shortness of Breath Vancomycin Rash, Other: See Comments Vicodin [Hydrocodon* Rash Review of Systems Constitutional: Negative. Eyes: Positive for photophobia. Neurological: Positive for headaches. All other systems reviewed and are negative. Physical Exam Vitals BP Pulse Temp Temp src Resp SpO2 Weight Height 05/09/24 1810 05/09/24 1810 05/09/24 18105/09/24 181205/09/24180905/09/24180905/09/241812 -- 118/85 (!) 100 36.7 ?C (98 ?F) Oral 16 98 % 57.6 kg (127 lb) Physical Exam Vitals and nursing note reviewed. Constitutional: Patient is AAO x3, appears to be well-nourished and hydrated. Psych: Appropriate mood and affect for chief complaint. Patient is calm and pleasant, she actually giggles through most of the exam which seems odd for 9 out of 10 pain. Integumentary: Skin intact, no erythema, no ecchymosis, no soft tissue swelling, skin is warm and dry. Neuro: Patient has sensation over the affected area as well as distally, no gross sensory or motor deficit. Cranial nerves II through XII are grossly intact, cerebella function is normal. No meningeal signs. Vascular: Good ulnar and radial pulses bilaterally. Cardiac: Regular rhythm and rate, S1-S2 are both audible. No murmurs rubs or gallops. Respiratory: Lungs clear to auscultation in all cuevas. No tachypnea. Patient speaks in full sentences. Musculoskeletal: Muscle grading in bilateral upper extremities is 5/5. No bony tenderness. No tenderness of the temples bilaterally. HENT: Head appears atraumatic and normocephalic. Trachea midline. Eyes: Conjunctivae are clear. Full extraocular eye movements intact. Diagnostic Testing ED Labs Ordered and Reviewed - No data to display Procedures ED Course / Clinical Impression Clinical Impressions as of 05/09/241909 Acute nonintractable headache, unspecified headache type 12 weeks gestation of History of migraine headaches MDM / Disposition / Plan This patient comes in with complaint of 1 week of a headache not resolved with typical means. Initial physical exam suggests an outwardly well-appearing individual. She seems to represent photophobia so I keep her in a room with the lights off. Exam otherwise unremarkable. On initial exam patient was treated here with IV fluids, Benadryl, Reglan. Diagnostics are not clinically indicated. Reevaluation shows a calm and comfortable appearing individual who says she is feeling m (more content not included)... Normal [facility] ED PROV NOTEon 04-28-2024 ED PROV NOTE HNO ID: [id number] Author: JOSE A YORK MD Service: ? Author Type: Physician Type: ED Provider Notes Filed: 04/28/2024 01:48 Note Text: ED Provider Note Patient Name: Rosy Dominique : 2005 SERVICE DATE: 04/27/24 History Patient presents with: Toothache: Patient ambulatory to ED with c/o left upper dental abscess. Patient states that she has a known abscess and the pain has increased since yesterday. Patient states that she was last on antibiotics for it in November 2023 Patient is a 18-year-old female coming in with tooth pain. She has had on and off dental infection. Last time she was on antibiotics was in November. Currently 10 weeks . She does have a history of Brugada syndrome and her doctor told her not to take Tylenol. She states she just needs some antibiotics. PAST MEDICAL HISTORY Diagnosis Date Breast abscess of female right Brugada syndrome Chronic daily headache Complication of anesthesia Diabetes mellitus type I (HCC) Diabetes, gestational NEGATIVE MEDICAL HISTORY 11/10/2015 Normal Color Vision POTS (postural orthostatic tachycardia syndrome) Seizure (HCC) Thyroid disease Trauma PAST SURGICAL HISTORY Procedure Laterality Date DELIVERY ONLY 06/14/2022 MASTOTOMY W/EXPLORATION/DRAINAGE ABSCESS DEEP Right 08/18/2022 FAMILY HISTORY Problem Relation Age of Onset None Mother None Father Diabetes Paternal Grandfather Social History Tobacco Use Smoking status: Never Passive exposure: Yes Smokeless tobacco: Current Tobacco comments: vape Vaping Use Vaping Use: Former Substances: Nicotine Substance and Sexual Activity Alcohol use: No Drug use: Never Sexual activity: Yes Partners: Male ALLERGIES Allergen Reactions Amoxicillin Rash, GI Upset, Unknown Bupivacaine Shortness of Breath Chloroprocaine Shortness of Breath Coconut Anaphylaxis, Unknown Dexamethasone Itching Hydrocodone Itching, Unknown Latex Other: See Comments, Unknown Lidocaine Shortness of Breath Vancomycin Rash, Other: See Comments Vicodin [Hydrocodon* Rash Review of Systems Constitutional: Negative for fever. Respiratory: Negative for shortness of breath. Gastrointestinal: Negative for vomiting. All other systems reviewed and are negative. Physical Exam Vitals [04/27/24 2353] BP Pulse Temp Temp src Resp SpO2 Weight Height 117/74 (!) 100 36.9 ?C (98.4 ?F) Oral 18 98 % 57.6 kg (127 lb) -- Physical Exam Vitals reviewed. Constitutional: General: She is not in acute distress. Appearance: She is not ill-appearing. HENT: Head: Normocephalic. Mouth/Throat: Mouth: Mucous membranes are moist. Comments: No palpable or fluctuance abscess. No swelling under the tongue Skin: General: Skin is warm. Neurological: General: No focal deficit present. Mental Status: She is alert. Sensory: No sensory deficit. Motor: No weakness. Psychiatric: Mood and Affect: Mood normal. Diagnostic Testing ED Labs Ordered and Reviewed - No data to display Procedures ED Course / Clinical Impression Clinical Impressions as of 04/28/24 0146 Dental infection Dental caries Toothache MDM / Disposition / Plan Patient is just requesting an antibiotic. There is no obvious abscess that is drainable. She is allergic to amoxicillin and being is challenging for antibiotics. I discussed with pharmacy she has tolerated Keflex in the past and felt to be safe during . Recommended Keflex. Is advised to follow with a dentist and made aware that this is not the best antibiotic for this so if the swelling gets worse if she gets fevers or other concerns she needs to return to the emergency department or follow-up with a dentist promptly. Differential Diagnoses - Dental infection - Hernandez's angina is less likely for the following reason(s): HANDP not suggestive - Airway compromise is less likely for the following reason(s): HANDP not suggestive Disposition The patient was discharged. Counseled patient and family regarding suspected diagnosis. SIGNATURE: Jose A York MD - JOSE A YORK 04/28/[address] [facility] Progress Noteon 04-27-2024 [employer] Authentication Interface Message Text [facility]ERNAL- MEDICINE CONSULT Referring/Requesting Provider: Etelvina Hayes, * PCP: Herman, MD Carine INDICATION FOR CONSULT: T1DM, Brugada Syndrome, seizure disorder HISTORY OF PRESENT ILLNESS: Patient is a 18 y.o. at 9w5d who presents for consultation regarding T1DM, Brugada Syndrome, seizure disorder. After reviewing her records, T1DM and Brugada Syndrome are not confirmed. She is not on insulin therapy and has a normal HA1c. Cardiology and genetics consults were reviewed with Rosy. She is not a good historian of her medical history. She had a consult with [facility] yesterday (reviewed note), but reports she desires to transfer care to [facility] as she is familiar with [facility]'s services. [facility] cardiology and genetics consults reviewed. She had a prior delivery due to PPROM at 31 weeks and her baby was in the NICU x 42 days. H/o seizures and was on Keppra prescribed by PCP while awaiting neurology evaluation. She is no longer on Keppra and had normal EEG. Neurology consult not found in care everywhere. She had LLQ pain this and had a dx lap on 03/17/24 with [employer] to evaluate for possible ectopic. Normal finding on laparoscopy. OB History Para Term AB Living 10 1 1 8 1 SAB IAB Ectopic Multiple Live Births 8 1 # Outcome Date GA Lbr Matthias/2nd Weight Sex Type Anes PTL Lv 10 Current 9 SAB 01/18/24 Comments: prior to dating ultrasounds being completed 8 06/14/22 31w0d 1.758 kg M CS-Unspec Spinal Y MAMI Comments: water broke at 30 weeks-IUGR- 7 SAB 6 SAB 5 SAB 4 SAB 3 SAB 2 SAB 1 SAB Past Medical History: Diagnosis Date Breast abscess Brugada syndrome not confirmed by cardiology and genetics Cardiac abnormality Chronic headache History of IUGR (intrauterine growth retardation) and stillbirth, currently , first trimester History of PROM (premature rupture of membranes), currently Hypoglycemia Neurological disorder Thyroid nodule Past Surgical History: Procedure Laterality Date SECTION 06/14/2022 LAPAROSCOPY 03/17/2024 Normal findings PERTINENT FAMILY HISTORY: Family History Problem Relation Age of Onset Other Mother POTS Mental Illness Father Mental Illness Sister Neurodegenerative Disease Sister Functional neurology disease Rhematoid Arthritis Maternal Grandmother Thyroid Disease Maternal Grandmother Heart Problems Paternal Grandfather Pacemaker Paternal Grandfather High Blood Pressure Other Juvenile Rhematoid Arthritis Neg Hx Lupus Neg Hx Psoriasis Neg Hx Inflam Bowel Dis Neg Hx MEDS: Outpatient Medications Marked as Taking for the 04/27/24 encounter (Office Visit) with Marie Montes, DO Medication Sig Dispense Refill Blood Glucose Monitoring Suppl (FREESTYLE LITE) w/Device KIT RA ALCOHOL SWABS 70 % PADS Lancets 28G MISC Use as directed to check glucose levels up to seven times daily. Vit-Fe Fumarate-FA ( VITAMINS PO) Take by mouth ALLERGY: Allergies Allergen Reactions Amoxicillin Anaphylaxis Coconut (Cocos Nucifera) Anaphylaxis Other Anaphylaxis Vicodin Vancomycin Anaphylaxis [place] Anaphylaxis Bupivacaine Rash Dexamethasone Rash Ketorolac Rash Latex Rash Hydrocodone Itching REVIEW OF SYSTEMS: Review of Systems Constitutional: Negative. HENT: Negative. Respiratory: Negative. Cardiovascular: Negative. Gastrointestinal: Positive for abdominal pain. Genitourinary: Negative. Skin: Negative. PHYSICAL EXAM: VITAL SIGNS: BP 103/69 Pulse 97 Resp 18 Wt 57.5 kg (126 lb 11.2 oz) SpO2 99% Physical Exam AAOx3, NAD Resp effort normal IMAGING: Scheduled 05/10/24 LABS: 04/08/24 HA1c 4.9 AST 14 ALT 9 UPC 0.09 TSH 1.69, fT4 1.4 (normal) IMPRESSION AND RECOMMENDATIONS: Rosy is a 18 y.o. at 9w5d with Active Non-Hospital Problems Diagnosis Date Noted History of delivery, currently in first trimester 04/29/2024 PPROM at 30 weeks and IUGR in 2021 Spontaneous delivery at 31 weeks Plan for serial TVCL and vaginal progesterone starting at 16 weeks Abdominal pain affecting 04/29/2024 - Started at time of missed menses. - LLQ pain. - Had dx lap this to R/O ectopic Syncope 07/24/2023 - s/p assessment with cardiology and genetics - Normal cardiac evaluation (EKG, echo, Holter) - VUS in SCN5A (location of gene change for Brugada syndrome. [place] not meet criteria for Brugada syndrome) and TNNT2 genes. Seizure 07/24/2023 Follow up with [facility] for - genetics consult due to RPL - nutrition consult (pt reported hx of T1DM, so this is why it was originally scheduled. She reported to me that she would like to have nutrition consult). - obtain records and labs for RONNA visit - I have ordered APLS labs (none found in chart review) (more content not included)... Normal [facility] Examination level ultrasound on 04-26-2024 Indication Viability. [id number]. Impression - Single, live, intrauterine . - An intrauterine gestational sac with a yolk sac and pole is present. - [place] rump length measurement is consistent with the established gestational age by prior ultrasounds. She has a miscarriage right before this so LMP dating is likely less accurate. - heart rate is within normal limits. Recommendations 12 weeks for first trimester anatomy. 16 weeks for cervical length. Maternal Assessment Height 175 cm Height (ft) 5 ft Height (in) 9 in Weight 58 kg Weight (lb) 127 lb BMI 18.75 kg/m Physical Exam Initial weight (lb) 120 lb Initial BMI 17.72 kg/m Method Transabdominal ultrasound examination. View: Adequate visualization Ruffin . Number of embryos: 1 Dating GA by prior assessment 10 w + 2 d SCOTT by prior assessment: 11/20/2024 Ultrasound examination on: 04/26/2024 GA by U/S based upon: CRL, GS GA by U/S 9 w + 4 d SCOTT by U/S: 11/25/2024 Assigned: based on ultrasound (CRL, GS), selected on 04/26/2024 Assigned GA 9 w + 4 d Assigned SCOTT: 11/25/2024 Assessment Gestational sac: visualized GS 42.4 mm 9w 5d 54% Zay Location: intrauterine Yolk sac: visualized Embryo: visualized CRL 26.1 mm 9w 3d 25% [place] Cardiac activity: present FHR 162 bpm Maternal Structures Uterus / Cervix Uterus: Visualized Uterus length 98 mm Uterus width 99 mm Uterus height 89 mm Uterus Vol 449.9 cm Cervix: Visualized Approach: Transabdominal Ovaries / Tubes / Adnexa Rt ovary: Visualized Rt ovary morphology: normal Rt ovary D1 34 mm Rt ovary D2 21 mm Rt ovary D3 18 mm Rt ovary Vol 6.7 cm Lt ovary: Visualized Lt ovary morphology: normal Lt ovary D1 37 mm Lt ovary D2 33 mm Lt ovary D3 31 mm Lt ovary Vol 19.8 cm Lt ovarian corpus luteum: purely cystic Lt ovarian corpus luteum D1 25.0 mm Lt ovarian corpus luteum D2 25.0 mm Lt ovarian corpus luteum D3 21.0 mm Cul de Sac / Bladder / Kidneys / Other Free fluid: free fluid visualized Amount of free fluid: trace Performed By: Lou Gong RDMS Read By: Jose A Ramirez M.D. MATERNAL MEDICINE [facility] Radiology Study observation (narrative) [facility] Issac 04-13-2024 [place]IL[place] Telephone (OBGLUT) -------- ROSY DOMINIQUE ([id number]) 3 F Date Time Provider Department 04/13/24 AKIKO TOMLIN During your visit today, we recorded the following information about you: Frederic Horton, SCOTT 04/13/2024 4:21 PM Signed Request rec'd from Madie PALACIO to call Dr Henry's office to review Endocrine RN notes from today's visit. Please review/advise, should pt be seen by Dr Henry or ok to hold off on further consult at this time? Frederic Horton, Frederic Lopez, SCOTT 04/14/2024 10:32 AM Signed Call placed to Dr. Henry's office in [place]. Spoke to nurse Lilia. Request made for Lilia to review the nurse visit note by Camilla Navarro RN from yesterday and ask Dr Henry to review as well. Request made to notify Frederic CHAVEZ at [facility] OB-curb setter if another endocrine consult recommended with Dr Henry. Referral order pended. Will forward to provider to sign if advised. Frederic Horton RN Allergies As of Date: 04/13/2024 Noted Allergy Reaction AMOXICILLIN 08/18/2022 2 - Rash 8 - GI Upset 16 - Unknown BUPIVACAINE 08/23/2022 12 - Shortness of Breath CHLOROPROCAINE 08/23/2022 12 - Shortness of Breath COCONUT 06/14/2022 10 - Anaphylaxis 16 - Unknown DEXAMETHASONE 12/08/2022 9 - Itching HYDROCODONE 08/18/2022 9 - Itching 16 - Unknown LATEX 12/19/2021 14 - Other: See Comments 16 - Unknown LIDOCAINE 08/23/2022 12 - Shortness of Breath VANCOMYCIN 08/20/2022 2 - Rash 14 - Other: See Comments VICODIN (HYDROCODONE-ACETAMINOPH E*08/18/2022 2 - Rash Date Reviewed: 04/07/2024 Reviewed by: Gina Oswald MA - Fully Assessed Reason for Visit: Patient Update [1234] Primary Visit Diagnosis:Abnormal glucose complicating [O99.810] Prescriptions as of 04/16/2024 - blood sugar diagnostic test strip Use as directed to check glucose levels up to seven times daily. - Lancets Use as directed to check glucose levels up to seven times daily. - alcohol swabs (ALCOHOL PREP PADS) Use as directed to check glucose levels up to seven times daily. - vit calc,iron,folic (PRENAT.VITS,ANISH,MIN-IRO N-FOLIC ORAL) Take by mouth. 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] 04/09/2023 Toxoplasmosis affecting [O98.619, B58*04/07/2024 Threatened premature labor, not delivered [O47.*04/28/2022 Seizure (HCC) [R56.9] 07/24/2023 Premature rupture of membranes [O42.90] 08/16/2022 Palpitations [R00.2] 06/13/2023 Cardiomyopathy (HCC) [I42.9] 04/07/2024 Breech presentation [O32.1XX0] 08/16/2022 Arthralgia of temporomandibular joint [M26.629] 04/30/2023 Encounter for supervision of high risk young mu*04/07/2024 History of delivery, currently *04/07/2024 with uncertain viability [O36.8*04/07/2024 History of prior with small for gesta*04/07/2024 History of [Z98.891] 04/07/2024 History of toxoplasmosis [Z86.19] 04/07/2024 Antepartum diabetes mellitus [O24.919] 04/07/2024 Brugada syndrome [I49.8] 04/07/2024 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 trachomatis+N. gonorrhoea e DNA ROWENA+probe Ql (Unsp spec)on 04-07-2024 C. trachomatis rRNA ROWENA+probe Ql (Unsp spec) Negative Normal Negative for Chlamydia trachomatis by [facility] Comment on above: Order Comment: Speci men Type: SWAB Ordering Facility: [facility] Address: [address] [place] [address] Performed By: #### 3 6902-5 #### [facility] CLIA [id number] [address] [place] [address] [place] N. gonorrhoeae rRNA ROWENA+probe Ql (Unsp spec) Negative Normal Negative for Neisseria gonorrhoeae by [facility] Comment on above: Order Comment: Speci men Type: SWAB Ordering Facility: [facility] Address: [address] [place] [address] Performed By: #### 3 6902-5 #### [facility] CLIA [id number] [address] [place] [address] [place] Progress Noteon 03-31-2024 [employer] Authentication Interface Message Text We had the pleasure of seeing Rosy Dominique in the [facility] at [facility] on March 31, 2024. As you know, Rosy is a 18 y.o. 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 She was last seen on October 22, 2023. Per report, prior interventions have included increased hydration and a trial of Florinef that resulted in worsening of symptoms. Rosy notes manageable symptoms of dizziness without any further episodes of syncope. There has been no chest pain, palpitations, or shortness of breath. Rosy drinks a minimum of 80 ounces of caffeine free fluid daily. She is currently and underwent negative exploratory laparotomy for suspected ectopic 3 days ago. Past medical history was reviewed and significant for seizure disorder and syncope. Current medications are levetiracetam and vitamins. There are allergies to amoxicillin, coconut, vicodin, vancomycin, walnut, bupivicane, dexamethasone, ketorolac, and latex. On review of systems, 10 of 14 systems were reviewed and were negative other than noted above. Family history was reviewed and is negative for congenital heart disease, premature coronary artery disease, sudden , and known cardiomyopathy. On review of social history Rosy lives in [place], [place]. 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 Physical exam showed: Vitals: Weight - Scale: 58.2 kg, 51 %ile (Z= 0.02) based on [facility] (Girls, 2-20 Years) [id number] data using vitals from 03/31/2024. Height: 173.4 cm, 94 %ile (Z= 1.56) based on [facility] (Girls, 2-20 Years) [id number]-fvd data based on Stature recorded on 03/31/2024. Heart rate was 103 beats per minute, respiratory rate was 16 breaths per minute, and blood pressure was 103/62 mmHg. In general, Rosy is acyanotic, well developed, well nourished, and in no acute distress. HEENT exam revealed that mucous membranes are moist. There is no thyromegaly or cervical lymphadenopathy. Respirations are comfortable. There is no use of accessory muscles. There are no retractions. Auscultation reveals good air movement bilaterally without wheezes, rales, or rhonchi. On palpation of the precordium, there are no lifts, heaves, or thrills. Auscultation reveals regular rate and rhythm with a normal S1 and physiologically split S2. There is no ejection click. There is no murmur, gallop, or rub. Radial and posterior tibial pulses are 2+, with no delay. Abdomen is soft, non-tender, and non-distended. There is no abdominal bruit. Liver is not palpable. Spleen is not palpable. Extremity exam reveals no cyanosis, clubbing, or edema. Extremities are warm and well perfused. Neurologicexam is grossly intact. There are no rashes or bruises on skin exam. A 12-lead ECG performed today that I personally reviewed is normal with sinus rhythm and a ventricular rate of 78, VA interval of 128 msec, QRS duration of 107 msec, QTc of 432 msec, QRS axis of +64 degrees, no atrial enlargement, no ventricular hypertrophy, and no ST/T changes. DIAGNOSES: Syncope. A. Normal ECG. B. Normal Holter monitor (October 22, 2023). 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 A. Normal echocardiogram. 3. Currently . ASSESSMENT: Rosy is a 18 y.o. female with symptoms consistent with vasovagal syncope that are currently manageable with increased hydration. 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 She requires continued intermittent evaluation for development of cardiomyopathy related to her genetic variants. RECOMMENDATIONS: 1. Continue primary medical care as directed. 2. No cardiac medications recommended. Continue to drink a minimum of 80-100 ounces of caffeine free fluid daily. 3. No activity restrictions from a cardiovascular perspective. 4. No restrictions or special requirements for anesthesia from a cardiovascular perspective. 5. We will plan to see Rosy in follow-up in 1 year for repeat evaluation with an echocardiogram. Total encounter time was 30 minutes, which includes chart review, counseling, documentation and/or coordination of care. Normal [facility] ED NOTEon 03-29-2024 ED NOTE HNO ID: [id number] Author: CAMILLA FOLREZ RN Service: ? Author Type: Registered Nurse Type: ED Notes Filed: 03/29/2024 00:36 Note Text: Pt d/c to home. Instructed to f/u with MD as scheduled. Advised to return to ED with worsening s/s or further concerns. Pt verbalized understanding of plan. Pt ambulated from department with a steady gait, without difficulty, in care of friend. IV removed intact prior to leaving. Normal [facility] ED PROV NOTEon 03-29-2024 ED PROV NOTE HNO ID: [id number] Author: RADHA BORRERO MD Service: Emergency Medicine Author Type: Physician Type: ED Provider Notes Filed: 03/29/2024 00:35 Note Text: ED Provider Note Patient Name: Rosy Dominique : 2005 SERVICE DATE: 03/28/24 History Patient presents with: Bleeding With : Pt is 6 weeks , has been seen multiple times for abdominal pain. Was told to come back to ER if paint is consistent. Pt now has some pin/red bleeding with . 18-year-old female. Coming in today for concern. Reports that she is 6 weeks . Apparently was recently seen for abdominal pain in early . There was an indeterminate ultrasound performed and the patient was transferred for laparotomy which did not demonstrate ectopic . Patient reports that she had an ultrasound done a few days ago but has not yet had the results. Her hCG was drawn earlier today and apparently is now 8500. This is an uptrend from the initial values present. PAST MEDICAL HISTORY Diagnosis Date - Breast abscess of female right - Chronic daily headache - Diabetes mellitus type I (HCC) - NEGATIVE MEDICAL HISTORY 11/10/2015 Normal [facility] - POTS (postural orthostatic tachycardia syndrome) PAST SURGICAL HISTORY Procedure Laterality Date - DELIVERY ONLY 06/14/2022 - MASTOTOMY W/EXPLORATION/DRAINAGE ABSCESS DEEP Right 08/18/2022 FAMILY HISTORY Problem Relation Age of Onset - None Mother - None Father - Diabetes Paternal Grandfather Social History Tobacco Use - Smoking status: Never Passive exposure: Yes - Smokeless tobacco: Current - Tobacco comments: vape Vaping Use - Vaping Use: current everyday user - Substances: Nicotine Substance and Sexual Activity - Alcohol use: No - Drug use: Never - Sexual activity: Not on file ALLERGIES Allergen Reactions - Amoxicillin Rash, GI Upset, Unknown - Bupivacaine Shortness of Breath - Chloroprocaine Shortness of Breath - Coconut Anaphylaxis, Unknown - Dexamethasone Itching - Hydrocodone Itching, Unknown - Latex Other: See Comments, Unknown - Lidocaine Shortness of Breath - Vancomycin Rash, Other: See Comments - Vicodin [Hydrocodon* Rash Review of Systems Constitutional: Negative for chills, diaphoresis, fatigue and fever. HENT: Negative for congestion, ear pain, sinus pain and sore throat. Eyes: Negative for photophobia, pain, redness and visual disturbance. Respiratory: Negative for cough, chest tightness and shortness of breath. Cardiovascular: Negative for chest pain, palpitations and leg swelling. Gastrointestinal: Positive for abdominal pain. Negative for abdominal distention, constipation, diarrhea, nausea and vomiting. Genitourinary: Positive for vaginal bleeding. Negative for difficulty urinating, dysuria, flank pain, frequency and urgency. Musculoskeletal: Negative for back pain, neck pain and neck stiffness. Skin: Negative for color change, rash and wound. Neurological: Negative for dizziness, syncope, light-headedness and headaches. Psychiatric/Behavioral: Negative for agitation, behavioral problems and confusion. Physical Exam Vitals [03/28/242055] BP Pulse Temp Temp src Resp SpO2 Weight Height 108/79 (!) 100 36.8 ?C (98.3 ?F) Oral 18 99 % 61.9 kg (136 lb 7.4 oz) -- Physical Exam Vitals and nursing note reviewed. Constitutional: Appearance: She is well-developed. She is not diaphoretic. HENT: Head: Normocephalic and atraumatic. Right Ear: External ear normal. Left Ear: External ear normal. Eyes: General: No scleral icterus. Right eye: No discharge. Left eye: No discharge. Conjunctiva/sclera: Conjunctivae normal. Pupils: Pupils are equal, round, and reactive to light. Neck: Vascular: No JVD. Trachea: No tracheal deviation. Cardiovascular: Rate and Rhythm: Normal rate and regular rhythm. Heart sounds: Normal heart sounds. No murmur heard. No friction rub. No gallop. Pulmonary: Effort: Pulmonary effort is normal. No respiratory distress. Breath sounds: Normal breath sounds. No stridor. No wheezing or rales. Chest: Chest wall: No tenderness. Abdominal: General: Bowel sounds are normal. There is no distension. Palpations: Abdomen is soft. There is no mass. Tenderness: There is no abdominal tenderness. There is no guarding or rebound. Comments: Patient reports that she has some little bit of suprapubic discomfort. On exam there is no focal tenderness rebound tenderness guarding or rigidity. Overall abdomen benign at this point. Musculoskeletal: General: No tenderness or deformity. Normal range of motion. Cervical back: Normal range of motion and neck supple. Skin: General: Skin is warm. Capillary Refill: Capillary refill takes less than 2 seconds. Coloration: Skin is not pale. Findings: No rash. Neurological: Mental Status: She is alert and oriented to person, place, and time. (more content not included)... Normal [facility] HEALTHon 03-28-2024 [facility] HEALTH HNO ID: [id number] Author: LULÚ ISBELL RDMS Service: Radiology Author Type: [employer]chand[employer] Buying Type: Allied Health Filed: 03/28/2024 23:33 Note Text: Radiology Service Progress Note PATIENT NAME: Rosy Dominique DATE OF SERVICE: March 28, 2024 TIME: 11:33 PM PATIENT IDENTITY VERIFICATION COMPLETED USING TWO (2) IDENTIFIERS: Name and Date of confirmed by patient verbally and Name and Date of confirmed by identification band. FALL SCREENING: Has the patient had 2 falls in the last year or 1 fall with injury or currently using an Ambulatory Assistive Device (Walker, Cane, Wheelchair, Crutches, etc.)? Emergency Room Patient: Screened in ED PATIENT GENDER DATA: Female. status: : Yes. Internal Quality Check OK. Urinalysis hCG results are as follows: Positive Reference Range: Negative status: NO. PATIENT RELEVANT IMPLANT DATA REVIEWED: Not Applicable PATIENT PRESENTS WITH AN IMPLANTABLE OR ATTACHED SHELLFISH HARVESTER: No RADIOLOGY DEPARTMENT: Ultrasound PERIPHERAL IV DATA: Not applicable SIGNED BY: Lulú Dee RDMS March 28, 2024 11:33 PM Normal [facility] Basic metabolic 2000 panelon 03-28-2024 Anion gap [Moles/Vol] 9 mmol/L Normal 9-18 [facility] Comment on above: Order Comment: Speci jessie Type: BLOOD SPECIMENOrdering Facility: [facility] Address: [address] [place] [address] Performed By: #### 2 4321-2 ####[facility] [id number] [place] [address] [place] Calcium [Mass/Vol] 9.3 mg/dL Normal 8.5-10.2 [facility] Comment on above: Order Comment: Speci men Type: BLOOD SPECIMENOrdering Facility: [facility] Address: [address] [place] [address] Performed By: #### 2 4321-2 ####[facility] [id number] [place] [address] [place] Chloride [Moles/Vol] 102 mmol/L Normal 97-105 [facility] Comment on above: Order Comment: Speci men Type: BLOOD SPECIMENOrdering Facility: [facility] Address: [address] [place] [address] Performed By: #### 2 4321-2 ####[facility] [id number] [place] [address] [place] CO2 [Moles/Vol] 25 mmol/L Normal 22-30 [facility] Comment on above: Order Comment: Speci men Type: BLOOD SPECIMENOrdering Facility: [facility] Address: [address] [place] [address] Performed By: #### 2 4321-2 ####[facility] [id number] [address] Creatinine [Mass/Vol] 0.68 mg/dL Normal 0.58-0.96 [facility] Comment on above: Order Comment: Speci men Type: BLOOD SPECIMENOrdering Facility: [facility] Address: [address] [place] [address] Performed By: #### 2 4321-2 ####[facility] [id number] [address] Creatinine and Glomerular filtration rate.predicted panel (S/P/Bld) 129 mL/min/1.73m??? Normal >=60 [facility] Comment on above: Order Comment: Speci men Type: BLOOD SPECIMENOrdering Facility: [facility] Address: [address] [place] [address] Result Comment: Trupti mated Glomerular Filtration Rate (eGFR) is calculated using the 2020 CKD-EPI creatinine equation. This equation utilizes serum creatinine, sex, and age as parameters. The creatinine assay has traceable calibration to isotope dilution-mass spectrometry. Refer to KDIGO guidelines for clinical interpretation. In patients with unstable renal function, e.g. those with acute kidney injury, the eGFR may not accurately reflect actual GFR. Performed By: #### 2 4321-2 ####[facility] [id number] [address] Glucose [Mass/Vol] 72 mg/dL Low 74-99 [facility] Comment on above: Order Comment: Speci men Type: BLOOD SPECIMENOrdering Facility: [facility] Address: [address] [place] [address] Result Comment: The [place] Diabetes Association (ADA) provides guidance for cutoff values for fasting glucose and random glucose. The ADA defines fasting as no caloric intake for at least 8 hours. Fasting plasma glucose results between 100 to 125 mg/dL indicate increased risk for diabetes (prediabetes). Fasting plasma glucose results greater than or equal to 126 mg/dL meet the criteria for diagnosis of diabetes. In the absence of unequivocal hyperglycemia, results should be confirmed by repeat testing. In a patient with classic symptoms of hyperglycemia or hyperglycemic crisis, random plasma glucose results greater than or equal to 200 mg/dL meet the criteria for diagnosis of diabetes. Reference: Standards of Medical Care in Diabetes 2016, [place] Diabetes Association. Diabetes Care. 2016.39(Suppl 1). Performed By: #### 2 4321-2 ####[facility] [id number] [place] [address] [place] Potassium [Moles/Vol] 3.8 mmol/L Normal 3.7-5.1 [facility] Comment on above: Order Comment: Speci men Type: BLOOD SPECIMENOrdering Facility: [facility] Address: [address] [place] [address] Performed By: #### 2 4321-2 ####[facility] [id number] [address] [place] Sodium [Moles/Vol] 136 mmol/L Normal 136-144 [facility] Comment on above: Order Comment: Arden roman Type: BLOOD SPECIMENOrdering Facility: [facility] Address: [address] [place] [address] Performed By: #### 2 4321-2 ####[facility] [id number] [place] [address] [place] Urea nitrogen [Mass/Vol] 14 mg/dL Normal 7-21 [facility] Comment on above: Order Comment: Speci men Type: BLOOD SPECIMENOrdering Facility: [facility] Address: [address] [place] [address] Performed By: #### 2 4321-2 ####[facility] [id number] [place] [address] [place] CBC W Auto Differential pane l (Bld)on 03-28-2024 Basophils (Bld) [#/Vol] 10*3/uL Normal <0.11 [facility] Comment on above: Order Comment: Speci men Type: BLOOD SPECIMENOrdering Facility: [facility] Address: [address] [place] [address] Performed By: #### 5 7021-8 ####[facility] [id number] [address] [place] Basophils/100 WBC (Bld) 0.3 % Normal [facility] Comment on above: Order Comment: Speci men Type: BLOOD SPECIMENOrdering Facility: [facility] Address: [address] [place] [address] Performed By: #### 5 7021-8 ####[facility] [id number] [address] [place] Differential cell count method Nom (Bld) Auto Normal [facility] Comment on above: Order Comment: Speci men Type: BLOOD SPECIMENOrdering Facility: [facility] Address: [address] [place] [address] Performed By: #### 5 7021-8 ####[facility]ORYCL[facility] [id number] [place] [address] [place] Eosinophils (Bld) [#/Vol] 0.18 10*3/uL Normal <0.46 [facility] Comment on above: Order Comment: Speci men Type: BLOOD SPECIMENOrdering Facility: [facility] Address: [address] [place] [address] Performed By: #### 5 7021-8 ####[facility] [id number] [address] Eosinophils/100 WBC (Bld) 2.5 % Normal [facility] Comment on above: Order Comment: Speci men Type: BLOOD SPECIMENOrdering Facility: [facility] Address: [address] [place] [address] Performed By: #### 5 7021-8 ####[facility]ORYCL[facility] [id number] [place] [address] [place] Erythrocyte distribution width (RBC) [Ratio] 12.6 % Normal 11.5-15.0 [facility] Comment on above: Order Comment: Speci men Type: BLOOD SPECIMENOrdering Facility: [facility] Address: [address] [place] [address] Performed By: #### 5 7021-8 ####[facility]CL[facility] [id number] [address] [place] Hematocrit (Bld) [Volume fraction] 39.2 % Normal 36.0-46.0 [facility] Comment on above: Order Comment: Speci men Type: BLOOD SPECIMENOrdering Facility: [facility] Address: [address] [place] [address] Performed By: #### 5 7021-8 ####BOOTH LABORATORYCLIA [id number] [address] OF [place] Hemoglobin (Bld) [Mass/Vol] 12.8 g/dL Normal 11.5-15.5 [facility] Comment on above: Order Comment: Speci men Type: BLOOD SPECIMENOrdering Facility: [facility] Address: [address] [place] [address] Performed By: #### 5 7021-8 ####BOOTH LABORATORYCLIA [id number] [address] [place] Immature granulocytes (Bld) [#/Vol] 0.04 10*3/uL Normal <0.10 [facility] Comment on above: Order Comment: Speci men Type: BLOOD SPECIMENOrdering Facility: [facility] Address: [address] [place] [address] Performed By: #### 5 7021-8 ####BOOTH LABORATORYCLIA [id number] [address] [place] Immature granulocytes/100 WBC (Bld) 0.6 % Normal [facility] Comment on above: Order Comment: Speci men Type: BLOOD SPECIMENOrdering Facility: [facility] Address: [address] [place] [address] Performed By: #### 5 7021-8 ####BOOTH LABORATORYCLIA [id number] [place] [address] Lymphocytes (Bld) [#/Vol] 2.35 10*3/uL Normal 1.00-4.00 [facility] Comment on above: Order Comment: Speci men Type: BLOOD SPECIMENOrdering Facility: [facility] Address: [address] [place] [address] Performed By: #### 5 7021-8 ####BOOTH LABORATORYCLIA [id number] [address] Lymphocytes/100 WBC (Bld) 33.2 % Normal [facility] Comment on above: Order Comment: Speci men Type: BLOOD SPECIMENOrdering Facility: [facility] Address: [address] [place] [address] Performed By: #### 5 7021-8 ####BOOTH LABORATORYCLIA [id number] [address] STATES [facility] MCH (RBC) [Entitic mass] 28.0 pg Normal 26.0-34.0 [facility] Comment on above: Order Comment: Speci men Type: BLOOD SPECIMENOrdering Facility: [facility] Address: [address] [place] [address] Performed By: #### 5 7021-8 ####BOOTH LABORATORYCLIA [id number] [address] MCHC (RBC) [Mass/Vol] 32.7 g/dL Normal 30.5-36.0 [facility] Comment on above: Order Comment: Speci men Type: BLOOD SPECIMENOrdering Facility: [facility] Address: [address] [place] [address] Performed By: #### 5 7021-8 ####BOOTH LABORATORYCLIA [id number] [address] MCV (RBC) [Entitic vol] 85.8 fL Normal 80.0-100.0 [facility] Comment on above: Order Comment: Speci men Type: BLOOD SPECIMENOrdering Facility: [facility] Address: [address] [place] [address] Performed By: #### 5 7021-8 ####BOOTH LABORATORYCLIA [id number] [place] [address] [place] Monocytes (Bld) [#/Vol] 0.57 10*3/uL Normal <0.87 [facility] Comment on above: Order Comment: Speci men Type: BLOOD SPECIMENOrdering Facility: [facility] Address: [address] [place] [address] Performed By: #### 5 7021-8 ####BOOTH LABORATORYCLIA [id number] [place] [address] [place] Monocytes/100 WBC (Bld) 8.1 % Normal [facility] Comment on above: Order Comment: Speci men Type: BLOOD SPECIMENOrdering Facility: [facility] Address: [address] [place] [address] Performed By: #### 5 7021-8 ####BOOTH LABORATORYCLIA [id number] [place] [address] [place] Neutrophils (Bld) [#/Vol] 3.91 10*3/uL Normal 1.45-7.50 [facility] Comment on above: Order Comment: Speci men Type: BLOOD SPECIMENOrdering Facility: [facility] Address: [address] [place] [address] Performed By: #### 5 7021-8 ####BOOTH LABORATORYCLIA [id number] [address] STATES [place] Neutrophils/100 WBC (Bld) 55.3 % Normal [facility] Comment on above: Order Comment: Speci men Type: BLOOD SPECIMENOrdering Facility: [facility] Address: [address] [place] [address] Performed By: #### 5 7021-8 ####BOOTH LABORATORYCLIA [id number] [place] [address] [place] Nucleated RBC (Bld) [#/Vol] 10*3/uL Normal <0.01 [facility] Comment on above: Order Comment: Speci men Type: BLOOD SPECIMENOrdering Facility: [facility] Address: [address] [place] [address] Performed By: #### 5 7021-8 ####BOOTH LABORATORYCLIA [id number] [place] [address] [place] Nucleated RBC/100 WBC (Bld) [Ratio] 0.0 /100 WBC Normal [facility] Comment on above: Order Comment: Speci men Type: BLOOD SPECIMENOrdering Facility: [facility] Address: [address] [place] [address] Performed By: #### 5 7021-8 ####BOOTH LABORATORYCLIA [id number] [place] [address] [place] Platelet mean volume (Bld) [Entitic vol] 10.4 fL Normal 9.0-12.7 [facility] Comment on above: Order Comment: Speci men Type: BLOOD SPECIMENOrdering Facility: [facility] Address: [address] [place] [address] Performed By: #### 5 7021-8 ####BOOTH LABORATORYCLIA [id number] [place] [address] [place] Platelets (Bld) [#/Vol] 288 10*3/uL Normal 150-400 [facility] Comment on above: Order Comment: Speci men Type: BLOOD SPECIMENOrdering Facility: [facility] Address: [address] [place] [address] Performed By: #### 5 7021-8 ####BOOTH LABORATORYCLIA [id number] [place] [address] [place] RBC (Bld) [#/Vol] 4.57 10*6/uL Normal 3.90-5.20 [facility] Comment on above: Order Comment: Speci men Type: BLOOD SPECIMENOrdering Facility: [facility] Address: [address] [place] [address] Performed By: #### 5 7021-8 ####BOOTH LABORATORYCLIA [id number] [place] [address] [place] WBC (Bld) [#/Vol] 7.07 10*3/uL Normal 3.70-11.00 [facility] Comment on above: Order Comment: Speci men Type: BLOOD SPECIMENOrdering Facility: [facility] Address: [address] [place] [address] Performed By: #### 5 7021-8 ####BOOTH LABORATORYCLIA [id number] [address] OF [facility] COMPLETE URINALYSISon 2023 BILIRUBIN, TOTAL PRESENCE IN URINE Negative Normal Negative [facility] Comment on above: Performed By: #### L AB347 ####Radio Dispatcher: JAYJAY MONTEZ ([phone])[facility] [place] (SBHLAB)[address] Clarity (U) Clear Normal Clear [facility] Comment on above: Performed By: #### L AB347 ####Radio Dispatcher: JAYJAY MONTEZ ([phone])[facility] [place] (SBHLAB)[address] Color (U) Light Yellow Normal Lt. Yellow [facility] Comment on above: Performed By: #### L AB347 ####Radio Dispatcher: JAYJAY MONTEZ ([id number])[facility] (SBHL[facility])[address] GLUCOSE (MG/DL) IN URINE Normal Normal Normal (<70) [facility] Comment on above: Performed By: #### L AB347 ####Radio Dispatcher: JAYJAY MONTEZ ([id number])[facility] (SBHLAB)[address] HEMOGLOBIN PRESENCE IN URINE Negative Normal Negative [facility] Comment on above: Performed By: #### L AB347 ####Radio Dispatcher: JAYJAY MONTEZ ([phone])[facility] (SBHLAB)[address] [place] [address] [place] Ketones Ql (U) Negative Normal Negative [facility] Comment on above: Performed By: #### L AB347 ####Radio Dispatcher: JAYJAY MONTEZ ([phone])[facility]BPRES[facility] (SBHLAB)[address] LEUKOCYTE ESTERASE PRESENCE IN URINE BY TEST STRIP Negative Normal Negative [facility] Comment on above: Performed By: #### L AB347 ####Radio Dispatcher: JAYJAYFRANCIS MONTZE ([phone])[facility] (SBHLAB)[address] NITRITE PRESENCE IN URINE Negative Normal Negative [facility] Comment on above: Performed By: #### L AB347 ####Radio Dispatcher: JAYJAYFRANCIS MONTEZ ([phone])[facility] (SBHLAB)[address] pH (U) 6.0 [pH] Normal 5.0-8.0 [facility] Comment on above: Performed By: #### L AB347 ####Radio Dispatcher: JAYJAYFRANCIS MONTEZ ([phone])[facility] (SBHLAB)[address] Protein (U) [Mass/Vol] Negative Normal Negative [facility] Comment on above: Performed By: #### L AB347 ####Radio Dispatcher: JAYJAY TC ([phone])[facility] ([facility])[address] Specific gravity (U) [Rel density] 1.015 Normal 1.005-1.030 [facility] Comment on above: Performed By: #### L AB347 ####Radio Dispatcher: JAYJAY [place] ([phone])[facility] (SBAB)[address] UROBILINOGEN (MG/DL) IN URINE Normal Normal Normal (0-1) [facility] Comment on above: Performed By: #### L AB347 ####Radio Dispatcher: JAYJAY TC ([phone])[facility] (SBAB)[address] ED NOTEon 03-28-2024 ED NOTE HNO ID: [id number] Author: CAMILLA FLOREZ RN Service: ? Author Type: Registered Nurse Type: ED Notes Filed: 03/28/2024 23:26 Note Text: US exam completed, awaiting results. Per Dr. Borrero, ok to give patient food/drink. Pt given turkey sandwich and apple juice. Normal [facility] ED Nursing Noteon 03-28-2024 ED Nursing Note Pt presents to ED wi th c/o left side and back pain. Pt was treated for a UTI and had a laparoscopic surgery on the and is having increasing pain. Pt denies urinary sx. Normal [facility] ED Provider Noteon ED Provider Note EMERGENCY DEPARTMENT ENCOUNTER Pt Name: Rosy Dominique Birthdate 2005 Date of evaluation: 03/28/2024 ED Provider: Randal Rivera DO CHIEF COMPLAINT No chief complaint on file. HISTORY OF PRESENT ILLNESS (Location/Symptom, Timing/Onset, Context/Setting, Quality, Duration, Modifying Factors, Severity) Note limiting factors. I wore appropriate PPE for the entirety of this encounter. HPI Rosy Dominique is a 18 y.o. who presents to the emergency department presents for persistent some significant left lower quadrant abdominal pain for the last week patient recently underwent exploratory laparoscopy with positive hCG to confirm did not find other etiology of discomfort. Umoa-hyu-oqeempz treatment prior to arrival not effective. Has not yet followed with OB since time of procedure denies any significant vaginal discharge or bleeding Nursing Notes were reviewed. History obtained from : patient Outside records reviewed: N/A History/Collateral information obtained from: N/A Chronic conditions affecting care: Social determinants of health: Discussion/ MDM: ED Course as of 04/06/24 041 Sun March 28, 2024 0322 Patient was appropriately increasing hCG quant, still lower level expectancy a.m. ultrasound following recent explorative laparoscopy [SL] 0349 Discussed with patient that likely still be too early to have any ultrasound or other imaging that would be confirmatory has not followed with her personal OB inform them to continue to trend beta-hCG further imaging is needed [SL] ED Course User Index [SL] Randal Rivera Jr., Diagnoses as of 04/06/24 041 Abdominal pain during in first trimester , considered threatened in the setting of any bleeding or pain, discussed all early pregnancies regardless of previous birthing history are at the highest risk for complications including spontaneous / failure of during the first 12 weeks, understands the need for CLASSIFIED ADVERTISING CLERK follow-up for reevaluation, management, further repeat ultrasounds and other testing care as deemed necessary by specialist, return precautions discussed such as increasing or persistent bleeding, new or increasing pain, fever or any other concerns arise. Informed those present of plan, provided opportunity to ask any further questions, all questions answered to the best of my ability, feels comfortable with discharge and plan to follow up with PCP and cigarette making examiner specialist as outpatient. Re-emphasized to return at any time if symptoms worsen, new symptoms develop, or any new concerns arise. chart created with voice recognition software, errors may be present due to software?s interpretation It was explained that more than 50% of abdominal pain that comes to the emergency Department goes undiagnosed. It was also explained that there were no emergent findings in their emergency medicine workup today. Patient/Family understood that if they get worse, developed high fever, or persistent vomiting they should come back to the emergency department. I explained to them that many times an appendicitis, colitis, diverticulitis, cholelithiasis and many other such illnesses are sometimes undetectable early on in their course and will not be seen on the first emergency department visit even if laboratory or imaging results obtained during visit REVIEW OF SYSTEMS Review of Systems Pertinent positives and negatives as per HPI PAST MEDICAL HISTORY Past Medical History: Diagnosis Date Brugada syndrome Cardiomyopathy (HCC) Seizure (HCC) last seizure -2023 SURGICAL HISTORY Past Surgical History: Procedure Laterality Date ABSCESS DRAINAGE Right 08/18/2022 breast SECTION (HISTORICAL) 07/04/2022 LAP,DIAGNOSTIC ABDOMEN (HISTORICAL) 03/17/2024 r/o ectopic CURRENT MEDICATIONS Discharge Medication List as of 03/28/2024 3:51 AM CONTINUE these medications which have NOT CHANGED Details levETIRAcetam (Keppra) 500 MG tablet Take 500 mg by mouth in the morning and 500 mg in the evening., Starting Fri01/03/2023, Historical Med Qrympu-Wqscgboxo-Jges-Fi sh Oil ( + COMPLETE MULTI PO) Take by mouth., Historical Med ALLERGIES Amoxicillin, Black walnut flavor, Bupivacaine, Chloroprocaine, Coconut fatty acids, Fentanyl, Ketorolac, Lidocaine, Vancomycin, Dexamethasone, Latex, and Hydrocodone-acetaminophe n FAMILY HISTORY No family history on file. SOCIAL HISTORY Social History Socioeconomic History Marital status: Single Tobacco Use Smoking status: Never Smokeless tobacco: Never Vaping Use Vaping Use: Former Substance and Sexual Activity Alcohol use: Never Drug use: Never PHYSICAL EXAM ED Triage Vitals [03/28/24 0017] Temp Heart Rate Resp BP 36.9 ?C (98.4 ?F) 85 20 110/74 SpO2 Temp Source Heart Rate Source Patient Position 99 % Temporal Monitor -- BP Location FiO2 (%) -- -- (more content not included)... Normal [facility] HCG QUALITATIVE URINEon 03-10 Beta HCG ( test) Ql (U) Positive Normal Negative [facility] Comment on above: Result Comment: KRISTINA Upotn COMMENTS: is the most common reason for HCG in urine, although choriocarcinoma, hydatidiform mole, and certain nontrophoblastic malignancies also result in detectable urinary HCG levels. Sensitivity = 20mIU/mL. Performed By: #### L [id number] ####Radio Dispatcher: JAYJAY MONTEZ ([phone])[facility] ([facility])[address] [place] [address] HCG QUANTITATIVE BLOODon HCG QUANTITATIVE 8354 mIU/mL Normal Females <=5 [facility] Comment on above: Result Comment: KRISTINA Upton COMMENTS: Values in should double every 2 to 3 days for the first 6 weeks. Elevated concentrations of human chorionic gonadotropin (hCG) measured in the first trimester of are observed in normal , but may serve as an indication of chorionic carcinoma, hydatiform mole, or multiple . Decreasing hCG concentrations indicate threatened or missed , recent termination of , ectopic , gestosis or intrauterine . Janene- and postmenopausal females may have detectable hCG concentrations (< or = to 14 mIU/mL) due to pituitary production of hCG. Serum follicle-stimulating hormone measurement may aid in ruling-out in this population. Cutoffs of greater than 20 to 45 mIU/mL have been suggested and are method dependent. False-elevations (called phantom human chorionic gonadotropin: hCG) may occur with patients who have human antianimal or heterophilic antibodies. Some specimens may not dilute linearly due to abnormal forms of hCG. Elevated hCG concentrations not associated with are found in patients with other diseases such as tumors of the germ cells, ovaries, bladder, pancreas, stomach, lungs, and liver. This test is not intended to detect or monitor tumors or gestational trophoblastic disease. Performed By: #### L AB143 ####Radio Dispatcher: JAYJAY MONTEZ ([id number])[facility] CENTERSoraya [place] (SBHLAB)[address] [place] [address] Laboratory - Chemistry and C hemistry - challengeon 03-28-2024 HCG.beta subunit Qn 8354 m[IU]/mL Females <=5 mIU/mL [facility] Laboratory - Chemistry and C hemistry - challengeOrdered By: Eric Casanova on 03-28-2024 Beta HCG ( test) Ql Positive Negative [facility] [employer] Beta HCG ( test) Ql (U) is the most common reason for HCG in urine, although choriocarcinoma, hydatidiform mole, and certain nontrophoblastic malignancies also result in detectable urinary HCG levels. Sensitivity = 20mIU/mL. [facility] No Panel Informationon 03-28 Values in should double every 2 to 3 days for the first 6 weeks. Elevated concentrations of human chorionic gonadotropin (hCG) measured in the first trimester of are observed in normal , but may serve as an indication of chorionic carcinoma, hydatiform mole, or multiple . Decreasing hCG concentrations indicate threatened or missed , recent termination of , ectopic , gestosis or intrauterine . Janene- and postmenopausal females may have detectable hCG concentrations (< or = to 14 mIU/mL) due to pituitary production of hCG. Serum follicle-stimulating hormone measurement may aid in ruling-out in this population. Cutoffs of greater than 20 to 45 mIU/mL have been suggested and are method dependent. False-elevations (called phantom human chorionic gonadotropin: hCG) may occur with patients who have human antianimal or heterophilic antibodies. Some specimens may not dilute linearly due to abnormal forms of hCG. Elevated hCG concentrations not associated with are found in patients with other diseases such as tumors of the germ cells, ovaries, bladder, pancreas, stomach, lungs, and liver. This test is not intended to detect or monitor tumors or gestational trophoblastic disease. [facility] [employer] No Panel InformationOrdered By: Eric Casanova on 03-28-2024 [employer] TYPE + SCREENon 03-28-2024 ABO AB Normal [facility] Comment on above: Order Comment: Speci men Type: BLOOD SPECIMENOrdering Facility: [facility] Address: [address] [place] [address] Performed By: #### T SCR ####BOOTH BLOOD BANKIA [id number] [address] HISTORICAL AB SCR STATUS Negative [facility] Comment on above: Order Comment: Speci men Type: BLOOD SPECIMENOrdering Facility: [facility] Address: [address] [place] [address] Performed By: #### T SCR ####BOOTH BLOOD BANKCLIA [id number] [address] Rh Nom (Bld) Positive [facility] Comment on above: Order Comment: Speci men Type: BLOOD SPECIMENOrdering Facility: [facility] Address: [address] [place] [address] Performed By: #### T SCR ####[facility] BLOOD [facility] HOSPITALIA [id number] E [address] TYPE AND SCREEN EXPIRATION 03/31/2024 23:59 [facility] Comment on above: Order Comment: Speci men Type: BLOOD SPECIMENOrdering Facility: [facility] Address: [address] [place] [address] Performed By: #### T SCR ####BOOTH BLOOD [facility] HOSPITALIA [id number] [address] US PREG TRANSABD <14 WKS LTD on 03-28-2024 US PREG TRANSABD <14 WKS LTD * * *Final Report* * * DATE OF EXAM: Mar 28 2024 11:32PM MDU 1035 - US PREG TRANSABD <14 WKS LTD / PROCEDURE REASON: Pelvic pain, positive beta-HCG, special shopper etiology suspected * * * * Physician Interpretation * * * * EXAMINATION: FIRST TRIMESTER TRANSVAGINAL AND TRANSABDOMINAL PELVIC ULTRASOUND CLINICAL HISTORY: Pelvic pain TECHNIQUE: Sonography of the pelvis was performed by transabdominal and transvaginal techniques. Images were obtained and stored in a permanent archive. MQ: [email or web address]_[email or web address] COMPARISON: None. RESULT: Uterus: - Orientation: Mobile - Size: 8.1 x 5.4 x 7 cm - Myometrium: homogeneous echogenicity - Cervix: 3.6cm, closed with no funneling Gestation: - Intrauterine gestational sac: Single present - Mean Sac Diameter: 1 cm, corresponding gestational age 5 week 4 days - Yolk sac: 0.3 cm - Embryo: Not seen -Subgestational hematoma: Absent Right ovary: - Size : 3.2 x 1.7 x 2.2 cm - Normal sonographic appearance with physiologic follicles. Left ovary: - Size: 3.6 x 3.2 x 3.3 cm - Normal sonographic appearance with physiologic follicles. Pelvis free fluid: Small free fluid is likely physiologic. IMPRESSION: Single intrauterine gestational sac with yolk sac, but without visualized embryo, most likely related to early stage of . Estimated Gestational Age: 5 weeks, 4 days by mean gestational sac diameter. 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 Date/Time: Mar 29 2024 12:07A Dictated by : MARIANNE LOVELACE MD This examination was interpreted and the report reviewed and electronically signed by: MARIANNE LOVELACE MD on Mar 29 2024 12:16AM EST [id number] [facility] US PREG TRANSVAG <14 WEEKSon 03-28-2024 US PREG TRANSVAG <14 WEEKS * * *Final Report* * * DATE OF EXAM: Mar 28 2024 11:32PM U 1034 - US PREG TRANSVAG <14 WEEKS / PROCEDURE REASON: Pelvic pain, positive beta-HCG, special shopper etiology suspected * * * * Physician Interpretation * * * * EXAMINATION: FIRST TRIMESTER TRANSVAGINAL AND TRANSABDOMINAL PELVIC ULTRASOUND CLINICAL HISTORY: Pelvic pain TECHNIQUE: Sonography of the pelvis was performed by transabdominal and transvaginal techniques. Images were obtained and stored in a permanent archive. MQ: [email or web address]_[email or web address] COMPARISON: None. RESULT: Uterus: - Orientation: Mobile - Size: 8.1 x 5.4 x 7 cm - Myometrium: homogeneous echogenicity - Cervix: 3.6cm, closed with no funneling Gestation: - Intrauterine gestational sac: Single present - Mean Sac Diameter: 1 cm, corresponding gestational age 5 week 4 days - Yolk sac: 0.3 cm - Embryo: Not seen -Subgestational hematoma: Absent Right ovary: - Size : 3.2 x 1.7 x 2.2 cm - Normal sonographic appearance with physiologic follicles. Left ovary: - Size: 3.6 x 3.2 x 3.3 cm - Normal sonographic appearance with physiologic follicles. Pelvis free fluid: Small free fluid is likely physiologic. IMPRESSION: Single intrauterine gestational sac with yolk sac, but without visualized embryo, most likely related to early stage of . Estimated Gestational Age: 5 weeks, 4 days by mean gestational sac diameter. 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 Date/Time: Mar 29 2024 12:07A Dictated by : MARIANNE LOVELACE MD This examination was interpreted and the report reviewed and electronically signed by: MARIANNE LOVELACE MD on Mar 29 2024 12:16AM EST [id number] [facility] Urinalysis complete panel (U )on 03-28-2024 Bilirubin Ql (U) Negative Negative mg/dL [facility] Clarity (U) Clear Clear [facility] Color (U) Light Yellow Lt. Yellow [facility] Glucose Ql (U) Normal Normal (<70) mg/dL [facility] Hemoglobin Ql (U) Negative Negative mg/dL [facility] Interpretation and review of laboratory results Normal [facility] Ketones (U) [Mass/Vol] Negative Negative mg/dL [facility] Leukocyte esterase Test strip Ql (U) Negative Negative Trisha/uL [facility] Nitrite Ql (U) Negative Negative [facility] pH (U) 6.0 [pH] 5.0 - 8.0 pH [facility] Protein (U) [Mass/Vol] Negative Negative mg/dL [facility] Specific gravity (U) [Rel density] 1.015 1.005 - 1.030 [facility] Urobilinogen (U) [Mass/Vol] Normal Normal (0-1) mg/dL [facility] 36on 03-26-2024 36 Called and left vcml about scheduling appt and let pt know there was an opening today in [place]. Mixaloo sent [facility] 36on 03-25-2024 36 Mixaloo sent to verify which location pt prefers [facility] 36 Pt needs appt for fu surgery and is due to go for hcg blood test at lab. Please call patient and help schedule [facility] STREP A MOLECULAR (POC)on Procedural Control Valid [facility] Strep A (POCT) Negative Negative [facility] 36on 03-17-2024 36 orders Normal [facility] Airwayon 03-17-2024 SUSAN Stauffer RNA 03/17/2024 2:24 PM Airway Date/Time: 03/17/2024 2:15 PM Urgency: scheduled Airway not difficult General Information and Staff Patient location during procedure: Procedural Resident/POWER SHOVEL OPERATOR: SUSAN Stauffer CRNA Performed: POWER SHOVEL OPERATOR Indications and Patient Condition Indications for airway management: anesthesia and airway protection Sedation level: Asleep Preoxygenated: yes Patient position: sniffing Mask difficulty assessment: 1 - vent by mask Final Airway Details Final airway type: endotracheal airway Successful airway: ETT Cuffed: yes Successful intubation technique: direct laryngoscopy Endotracheal tube insertion site: oral Blade: Gary Blade size: #3 ETT size (mm): 7.0 Cormack-Lehane Classification: grade I - full view of glottis Placement verified by: chest auscultation and capnometry Measured from: lips ETT to lips (cm): 21 Number of attempts at approach: 1 [facility] BASIC METABOLIC PANELon Anion gap [Moles/Vol] 9 mmol/L Normal 3-13 [facility] Comment on above: Performed By: #### L [id number], [id number] ####Radio Dispatcher: KIMBERLY OSORIO ([id number])[facility] ZANE RITTMAN (SWRLAB)[address] [place] [address] Calcium [Mass/Vol] 9.8 mg/dL Normal 8.4-10.4 [facility] Comment on above: Performed By: #### L AB15, [id number] ####Radio Dispatcher: KIMBERLY OSORIO ([id number])[facility] ZANE R[place]TMAN (SWRLAB)[address] [place] [address] [place] Chloride [Moles/Vol] 106 mmol/L Normal 98-107 [facility] Comment on above: Performed By: #### L AB15, [id number] ####Radio Dispatcher: KIMBERLY OSORIO ([id number])[facility] [place] R[place] (SWRLAB)[address] [place] [address] [place] CO2 [Moles/Vol] 21 mmol/L Low 22-30 [facility] Comment on above: Performed By: #### L AB15, [id number] ####Radio Dispatcher: KIMBERLY OSORIO ([id number])[facility] [place]GR[place] R[place] (SWRLAB)[address] [place] [address] [place] Creatinine [Mass/Vol] 0.60 mg/dL Normal 0.52-1.04 [facility] Comment on above: Performed By: #### L AB15, [id number] ####Radio Dispatcher: KIMBERLY OSORIO ([id number])[facility] [place] (SWRLAB)[address] [place] [address] GLOMERULAR FILTRATION RATE ML/MIN/1.73 SQ M.PREDICTED >90.0 Normal >60.0 [facility] Comment on above: Result Comment: Calc ulation based on the Chronic Kidney Disease Epidemiology Collaboration (CKD-EPI) equation refit without adjustment for race Performed By: #### L AB15, [id number] ####Radio Dispatcher: KIMBERLY OSORIO ([id number])[facility] [place] (SWRLAB)[address] [place] [address] [place] Glucose [Mass/Vol] 87 mg/dL Normal 70-100 [facility] Comment on above: Performed By: #### L AB15, [id number] ####Radio Dispatcher: KIMBERLY OSORIO ([id number])[facility] [place] (SWRLAB)[address] [place] [address] [place] Potassium [Moles/Vol] 3.9 mmol/L Normal 3.5-5.1 [facility] Comment on above: Performed By: #### L AB15, [id number] ####Radio Dispatcher: KIMBERLY OSORIO ([id number])[facility] [place] (SWRLAB)[address] [place] [address] [place] Sodium [Moles/Vol] 136 mmol/L Normal 135-145 [facility] Comment on above: Performed By: #### L AB15, [id number] ####Radio Dispatcher: KIMBERLY OSORIO ([id number])[facility] PADMINITMAN (SWRLAB)[address] Urea nitrogen [Mass/Vol] 6 mg/dL Low 7-17 [facility] Comment on above: Performed By: #### L AB15, [id number] ####Radio Dispatcher: KIMBERLY OSORIO ([id number])[facility] PADMINITMAN (SWRLAB)[address] [place] [address] Basic metabolic 1998 panelon 03-17-2024 Anion gap [Moles/Vol] 9 mmol/L 3 - 13 mmol/L [facility] Calcium [Mass/Vol] 9.8 mg/dL 8.4 - 10. 4 mg/dL [facility] Chloride [Moles/Vol] 106 mmol/L 98 - 10 7 mmol/L [facility] CO2 [Moles/Vol] 21 mmol/L Low 22 - 30 mmol/L [facility] Creatinine [Mass/Vol] 0.60 mg/dL 0.52 - 1.04 mg/dL [facility] GFR/1.73 sq M.predicted MDRD (S/P/Bld) [Vol rate/Area] - PINF [facility] Comment on above: Calculation based on the Chronic Kidney Disease Epidemiology Collaboration (CKD-EPI) equation refit without adjustment for race Glucose [Mass/Vol] 87 mg/dL 70 - 100 mg/dL [facility] Interpretation and review of laboratory results Abnormal [facility] Potassium [Moles/Vol] 3.9 mmol/L 3.5 - 5.1 mmol/L [facility] Sodium [Moles/Vol] 136 mmol/L 135 - 145 mmol/L [facility] Urea nitrogen [Mass/Vol] 6 mg/dL Low 7 - 17 mg/dL [facility] CBC W Auto Differential pane l (Bld)on 03-17-2024 Basophils (Bld) [#/Vol] 0.0 10*3/uL 0.0 - 0.2 10*3/uL [facility] Basophils/100 WBC (Bld) 0.3 % 0.0 - 2.0 % [facility] Eosinophils (Bld) [#/Vol] 0.3 10*3/uL 0.0 - 0.5 10*3/uL [facility] Eosinophils/100 WBC (Bld) 3.0 % 0.0 - 6.0 % [facility] Erythrocyte distribution width (RBC) [Ratio] 12.6 % 11.5 - 15.0 % [facility] Hematocrit (Bld) [Volume fraction] 37.2 % 35.0 - 47.0 % [facility] Hemoglobin (Bld) [Mass/Vol] 12.5 g/dL 11.7 - 16.0 g/dL [facility] Immature granulocytes (Bld) [#/Vol] 0.0 10*3/uL NINF - 0.1 10*3/uL [facility] Immature granulocytes/100 WBC (Bld) 0.3 % 0.0 - 2.0 % [facility] Interpretation and review of laboratory results Normal [facility] Lymphocytes (Bld) [#/Vol] 2.6 10*3/uL 1.0 - 4.3 10*3/uL [facility] Lymphocytes/100 WBC (Bld) 29.8 % 15.0 - 45.0 % [facility] MCH (RBC) [Entitic mass] 28.3 pg 26.0 - 34.0 pg [facility] MCHC (RBC) [Mass/Vol] 33.6 % 30.5 - 36.0 % [facility] MCV (RBC) [Entitic vol] 84.2 fL 77.0 - 99.0 fL [facility] Monocytes (Bld) [#/Vol] 0.7 10*3/uL 0.0 - 0.9 10*3/uL [facility] Monocytes/100 WBC (Bld) 8.3 % 5.0 - 13.0 % [facility] Neutrophils (Bld) [#/Vol] 5.0 10*3/uL 1.8 - 7.5 10*3/uL [facility] Neutrophils/100 WBC (Bld) 58.3 % 38.0 - 82.0 % [facility] Nucleated RBC/100 WBC (Bld) [Ratio] 0.0 % [facility] Platelet mean volume (Bld) [Entitic vol] 10.7 fL 9.0 - 12.7 fL [facility] Comment on above: MPV is a calculated measurement using platelet volume ratio Platelets (Bld) [#/Vol] 266 10*3/uL 140 - 440 10*3/uL [facility] RBC (Bld) [#/Vol] 4.42 10*6/uL 3.80 - 5.2 0 10*6/uL [facility] WBC (Bld) [#/Vol] 8.6 10*3/uL 3.6 - 10.7 10*3/uL [facility] CBC WITH AUTO DIFFERENTIALon 03-17-2024 Basophils (Bld) [#/Vol] 0.0 10*3/uL Normal 0.0-0.2 [facility] Comment on above: Performed By: #### L [id number] ####Radio Dispatcher: KIMBERLY OSORIO ([id number])[facility] SPAULDINGZANE RITTMAN (SWRLAB)[address] [place] [address] Basophils/100 WBC (Bld) 0.3 % Normal 0.0-2.0 [facility] Comment on above: Performed By: #### L [id number] ####Radio Dispatcher: KIMBERLY OSORIO ([phone])[facility] SPAULDINGZANE RITTMAN (SWRLAB)[address] [place] [address] [place] Eosinophils (Bld) [#/Vol] 0.3 10*3/uL Normal 0.0-0.5 [facility] Comment on above: Performed By: #### L [id number] ####Radio Dispatcher: KIMBERLY OSORIO ([id number])NISH SPAULDINGZANE RITTMAN (SWRLAB)[address] [place] [address] [place] Eosinophils/100 WBC (Bld) 3.0 % Normal 0.0-6.0 [facility] Comment on above: Performed By: #### L [id number] ####Radio Dispatcher: KIMBERLY OSORIO ([id number])[facility] S[place]ULDINGZ[place] RITTMAN (SWRLAB)[address] [place] [address] Erythrocyte distribution width (RBC) [Ratio] 12.6 % Normal 11.5-15.0 [facility] Comment on above: Performed By: #### L [id number] ####Radio Dispatcher: KIMBERLY OSORIO ([id number])NISH DEGROOT RITTMAN (SWRLAB)[address] [place] [address] Hematocrit (Bld) [Volume fraction] 37.2 % Normal 35.0-47.0 [facility] Comment on above: Performed By: #### L [id number] ####Radio Dispatcher: KIMBERLY OSORIO ([id number])[facility] [place]GR[place] R[place]TMAN (SWRLAB)[address] [place] [address] Hemoglobin (Bld) [Mass/Vol] 12.5 g/dL Normal 11.7-16.0 [facility] Comment on above: Performed By: #### L [id number] ####Radio Dispatcher: KIMBERLY OSORIO ([id number])[facility] [place] R[place] (SWRLAB)[address] [place] [address] IMMATURE GRANS % 0.3 % Normal 0.0-2.0 [facility] Comment on above: Performed By: #### L [id number] ####Radio Dispatcher: KIMBERLY OSORIO ([id number])[facility] [place] (SWRLAB)[address] [place] [address] IMMATURE GRANS ABSOLUTE 0.0 10*3/uL Normal <0.1 [facility] Comment on above: Performed By: #### L [id number] ####Radio Dispatcher: KIMBERLY OSORIO ([id number])[facility] [place] R[place] (SWRLAB)[address] [place] [address] [place] Lymphocytes (Bld) [#/Vol] 2.6 10*3/uL Normal 1.0-4.3 [facility] Comment on above: Performed By: #### L [id number] ####Radio Dispatcher: KIMBERLY OSORIO ([id number])[facility] [place] R[place] (SWRLAB)[address] [place] [address] [place] Lymphocytes/100 WBC (Bld) 29.8 % Normal 15.0-45.0 [facility] Comment on above: Performed By: #### L [id number] ####Radio Dispatcher: KIMBERLY OSORIO ([id number])[facility] [place] R[place] (SWRLAB)[address] [place] [address] MCH (RBC) [Entitic mass] 28.3 pg Normal 26.0-34.0 [facility] Comment on above: Performed By: #### L [id number] ####Radio Dispatcher: KIMBERLY OSORIO ([id number])[facility] [place] (SWRLAB)[address] [place] [address] MCHC 33.6 % Normal 30.5-36.0 [facility] Comment on above: Performed By: #### L [id number] ####Radio Dispatcher: KIMBERLY OSORIO ([id number])[facility] [place] (SWRLAB)[address] [place] [address] MCV (RBC) [Entitic vol] 84.2 fL Normal 77.0-99.0 [facility] Comment on above: Performed By: #### L [id number] ####Radio Dispatcher: KIMBERLY OSORIO ([id number])[facility] [place] (SWRLAB)[address] [place] [address] Monocytes (Bld) [#/Vol] 0.7 10*3/uL Normal 0.0-0.9 [facility] Comment on above: Performed By: #### L [id number] ####Radio Dispatcher: KIMBERLY OSORIO ([id number])[facility] [place] (SWRLAB)[address] [place] [address] [place] Monocytes/100 WBC (Bld) 8.3 % Normal 5.0-13.0 [facility] Comment on above: Performed By: #### L [id number] ####Radio Dispatcher: KIMBERLY OSORIO ([id number])[facility] [place] (SWRLAB)[address] [place] [address] NEUTROPHILS ABSOLUTE 5.0 10*3/uL Normal 1.8-7.5 [facility] Comment on above: Performed By: #### L [id number] ####Radio Dispatcher: KIMBERLY OSORIO ([id number])[facility] GARCIAZANE RITTMAN (SWRLAB)[address] [place] [address] [place] Neutrophils/100 WBC (Bld) 58.3 % Normal 38.0-82.0 [facility] Comment on above: Performed By: #### L [id number] ####Radio Dispatcher: KIMBERLY OSORIO ([id number])[facility] ZANE RITTMAN (SWRLAB)[address] [place] [address] NRBC 0.0 /100 WBCs Normal 0.0-2.0 [facility] Comment on above: Performed By: #### L [id number] ####Radio Dispatcher: KIMBERLY OSORIO ([id number])[facility] [place] (SWRLAB)[address] [place] [address] [place] Platelet mean volume (Bld) [Entitic vol] 10.7 fL Normal 9.0-12.7 [facility] Comment on above: Result Comment: MPV is a calculated measurement using platelet volume ratio Performed By: #### L [id number] ####Radio Dispatcher: KIMBERLY OSORIO ([phone])[facility] GARCIAZANE RITTMAN (SWRLAB)[address] [place] [address] [place] Platelets (Bld) [#/Vol] 266 10*3/uL Normal 140-440 [facility] Comment on above: Performed By: #### L [id number] ####Radio Dispatcher: KIMBERLY OSORIO ([id number])[facility] GARCIAZANE RITTMAN (SWRLAB)[address] [place] [address] [place] RBC (Bld) [#/Vol] 4.42 10*6/uL Normal 3.80-5.20 [facility] Comment on above: Performed By: #### L [id number] ####Radio Dispatcher: KIMBERLY OSORIO ([id number])[facility] [place] R[place]AN (SWRLAB)[address] [place] [address] [place] WBC (Bld) [#/Vol] 8.6 10*3/uL Normal 3.6-10.7 [facility] Comment on above: Performed By: #### L [id number] ####Radio Dispatcher: KIMBERLY OSORIO ([id number])[facility] (SWRLAB)[address] [place] [address] CHLAMYDIA/GONORRHEAon 2023 CHLAMYDIA/GONORRHEA NEISSERIA GONORRHOEA E DNA PROBE Reference Not Detected Not Detected CHLAMYDIA TRACHOMATIS DNA PROBE Reference Not Detected Not Detected ORDER COMMENTS: Methodology: real-time PCR This test is intended for medical purposes only and is not intended for the evaluation of suspected sexual abuse or for other forensic purposes. In certain contexts, culture may be required to meet applicable laws and regulations for diagnosis of C. trachomatis and N. gonorrhoeae infections. Per 2014 CDC recommmendations, this test does not include confirmation of positive results by an alternative nucleic acid target. A negative result does not exclude the possibility of infection. A result of invalid indicates that a new specimen should be collected if clinically indicated. Normal [facility] Comment on above: Performed By: #### L [id number] #### Radio Dispatcher: KIMBERLY OSORIO ([id number]) [facility] [address] [place] [address] COMPLETE URINALYSISon 2023 AMORPHOUS CRYSTALS (#/HPF) IN URINE Moderate Abnormal Negative [facility] Comment on above: Performed By: #### L [id number] #### Radio Dispatcher: KIMBERLY OSORIO ([id number]) [facility] (SWRLAB) [address] [place] [address] [place] BACTERIA (#/HPF) IN URINE Moderate Abnormal Negative [facility] Comment on above: Performed By: #### L [id number] #### Radio Dispatcher: KIMBERLY OSORIO ([id number]) [facility] (RLAB) [address] [place] [address] BILIRUBIN, TOTAL PRESENCE IN URINE Negative Normal Negative [facility] Comment on above: Performed By: #### L [id number] #### Radio Dispatcher: KIMBERLY OSORIO ([id number]) [facility] GARCIAZANE RITTMAN (SWRLAB) [address] [place] [address] [place] Clarity (U) Turbid Abnormal Clear [facility] Comment on above: Performed By: #### L [id number] #### Radio Dispatcher: KIMBERLY OSORIO ([id number]) [facility] ZANE R[place]TMAN (SWRLAB) [address] [place] [address] [place] Color (U) Light Yellow Normal Lt. Yellow [facility] Comment on above: Performed By: #### L [id number] #### Radio Dispatcher: KIMBERLY OSORIO ([id number]) [facility] ZANE RITTMAN (SWRLAB) [address] [place] [address] [place] GLUCOSE (MG/DL) IN URINE Normal Normal Normal (<70) [facility] Comment on above: Performed By: #### L [id number] #### Radio Dispatcher: KIMBERLY OSORIO ([id number]) [facility] [place] (SWRLAB) [address] [place] [address] [place] HEMOGLOBIN PRESENCE IN URINE Negative Normal Negative [facility] Comment on above: Performed By: #### L [id number] #### Radio Dispatcher: KIMBERLY OSORIO ([phone]) [facility] [place]ANE [facility] (SWRLAB) [address] [place] [address] [place] Ketones Ql (U) Negative Normal Negative [facility] Comment on above: Performed By: #### L [id number] #### Radio Dispatcher: KIMBERLY OSORIO ([id number]) [facility] [place]ANE [facility] (SWRLAB) [address] [place] [address] [place] LEUKOCYTE ESTERASE PRESENCE IN URINE BY TEST STRIP 250 Trisha/uL Abnormal Negative [facility] Comment on above: Performed By: #### L [id number] #### Radio Dispatcher: KIMBERLY OSORIO ([id number]) [facility] [place] (SWRLAB) [address] [place] [address] [place] NITRITE PRESENCE IN URINE Negative Normal Negative [facility] Comment on above: Performed By: #### L [id number] #### Radio Dispatcher: KIMBERLY OSORIO ([id number]) [facility] [place] R[place] (SWRLAB) [address] [place] [address] pH (U) 7.5 [pH] Normal 5.0-8.0 [facility] Comment on above: Performed By: #### L [id number] #### Radio Dispatcher: KIMBERLY OSORIO ([id number]) [facility] [place] [facility] (SWRLAB) [address] [place] [address] Protein (U) [Mass/Vol] Negative Normal Negative [facility] Comment on above: Performed By: #### L [id number] #### Radio Dispatcher: KIMBERLY OSORIO ([id number]) [facility] [place] R[place] (SWRLAB) [address] [place] [address] [place] RBC (#/HPF) IN URINE SEDIMENT Negative Normal 0-2 [facility] Comment on above: Performed By: #### L [id number] #### Radio Dispatcher: KIMBERLY OSORIO ([id number]) [facility] [place] [facility] (SWRLAB) [address] [place] [address] Specific gravity (U) [Rel density] 1.009 Normal 1.005-1.030 [facility] Comment on above: Performed By: #### L [id number] #### Radio Dispatcher: KIMBERLY OSORIO ([id number]) [facility] [place] (SWRLAB) [address] [place] [address] Specimen volume (U) 12 mL Normal [facility] Comment on above: Performed By: #### L [id number] #### Radio Dispatcher: KIMBERLY OSORIO ([id number]) [facility] [place] [facility] (SWRLAB) [address] [place] [address] [place] SQUAMOUS EPITHELIAL CELLS (#/HPF) IN URINE SEDIMENT 6-10 Abnormal 3-5 [facility] Comment on above: Performed By: #### L [id number] #### Radio Dispatcher: KIMBERLY OSORIO ([id number]) [facility] (SWRLAB) [address] [place] [address] UROBILINOGEN (MG/DL) IN URINE Normal Normal Normal (0-1) [facility] Comment on above: Performed By: #### L [id number] #### Radio Dispatcher: KIMBERLY OSORIO ([id number]) [facility] (SW[facility]AB) [address] [place] [address] WBC (LEUKOCYTE) (#/HPF) IN URINE SEDIMENT 3-5 Normal 0-5 [facility] Comment on above: Performed By: #### L [id number] #### Radio Dispatcher: KIMBERLY OSORIO ([id number]) [facility] (RLAB) [address] [place] [address] Consulton 03-17-2024 Consult Reason For Consult Pelvic pain. + History Of Present Illness Rosy Dominique is a 18 y.o. female presenting with intermittently severe left lower quad pelvic pain worsening over last few days. +hcg. No vaginal bleeding. lmp 02/14/24. Menses usually regular. +nausea and vomiting. No fever. given rx for uti keflex Past Medical History She has a past medical history of Brugada syndrome, Cardiomyopathy (HCC), and Seizure (HCC). Surgical History She has a past surgical history that includes section (07/04/2022) and Abscess drainage (Right, 08/18/2022). Social History She reports that she has never smoked. She has never used smokeless tobacco. She reports that she does not drink alcohol and does not use drugs. Allergies Amoxicillin, Black walnut flavor, Bupivacaine, Chloroprocaine, Coconut fatty acids, Fentanyl, Ketorolac, Lidocaine, Vancomycin, Dexamethasone, Latex, and Hydrocodone-acetaminophe n Medications (Not in a hospital admission) Review of Systems See hpi Physical Exam Alert nad Normal respirations Normal heart rate Abd soft, +tenderness left lower quad Ext nontender no edema Last Recorded Vitals Blood pressure 104/75, pulse 82, temperature 36.8 ?C (98.2 ?F), temperature source Tympanic, resp. rate 14, height 5' 9 (1.753 m), weight 128 lb (58.1 kg), SpO2 98%. Relevant Results Hcg 52 cbc wnl Ulsd Left ovarian cyst 2 cm no iup small free fluid Assessment/Plan Principal Problem: Left lower quadrant pain Pelvic pain; of unknown location Pt was counseled on options and she wants to proceed with diagnostic laparoscopy possible salpingectomy/salpingost luciano. She understands the risks of infection, bleeding, blood clots, damage to internal organs and risk with anesthesia. She was counseled on pre and post op care. All questions answered. Normal [facility] ED Nursing Noteon 03-17-2024 ED Nursing Note Reviewed transfer instructions and patient verbalized understanding. Patient verbalized understanding to go to [facility] within the hour. transfer packet provided to patient. No further questions. Patient ambulated out of ED with strong steady gait. Respirations even and non labored. No acute distress. A&O x4. Bc Vazquez RN 03/17/24 0310 [facility] ED Nursing Note Patient ambulated to restroom independently Bc Vazquez RN 03/17/24 0238 [facility] ED Nursing Note Patient ambulated to ED5 without difficulty. Visitor at bedside. She has pain across the lower back and left lower quadrant. This has been present for one week. She has not been taking IBU or Tylenol for the pain. The pain has been getting worse. Pain rated 8/10 and described as intermittent sharp pain. No changes in urination and bowels are moving normally. She denies triggers or alleviating factors. She reports laying in bed when this happened. She endorses nausea without vomiting. She is eating and drinking normally. She is 4 weeks and 3 days . Patient appears to be in no acute distress. Skin is warm, dry, and pink. A&O x3. Respirations even and non labored. Bed in locked and low position. Call light within reach. Patient has no further needs. Normal [facility] ED Provider Noteon ED Provider Note EMERGENCY DEPARTMENT ENCOUNTER Pt Name: Rosy Dominique Birthdate 2005 Date of evaluation: 03/17/2024 ED Provider: Susan Ramesh, DO CHIEF COMPLAINT Chief Complaint Patient presents with Abdominal Pain Back Pain HISTORY OF PRESENT ILLNESS (Location/Symptom, Timing/Onset, Context/Setting, Quality, Duration, Modifying Factors, Severity) Note limiting factors. I wore appropriate PPE for the entirety of this encounter. HPI 18-year-old female presents emergency department today with left lower quadrant, pelvic pain transferred from [place] emergency department for pelvic ultrasound. Concern for ectopic versus torsion. Denies any dysuria, frequency or urgency. Denies any vaginal bleeding. She states her first day of last menstrual period was February 14, 2024 approximately 1 month ago. She was treated there with Keflex for UTI and prescribed course of Keflex. Nursing Notes were reviewed. Limitations to history: None Outside historians: None REVIEW OF SYSTEMS Review of Systems Gastrointestinal: Positive for nausea. Genitourinary: Positive for pelvic pain. Negative for vaginal bleeding. Pertinent positives and negatives as per HPI. PAST MEDICAL HISTORY Past Medical History: Diagnosis Date Brugada syndrome Cardiomyopathy (HCC) Seizure (HCC) last seizure -2023 SURGICAL HISTORY Past Surgical History: Procedure Laterality Date ABSCESS DRAINAGE Right 08/18/2022 breast SECTION (HISTORICAL) 07/04/2022 CURRENT MEDICATIONS Previous Medications LEVETIRACETAM (KEPPRA) 500 MG TABLET Take 500 mg by mouth in the morning and 500 mg in the evening. [id number] SH OIL ( + COMPLETE MULTI PO) Take by mouth. ALLERGIES Amoxicillin, Black walnut flavor, Bupivacaine, Chloroprocaine, Coconut fatty acids, Fentanyl, Ketorolac, Lidocaine, Vancomycin, Dexamethasone, Latex, and Hydrocodone-acetaminophe n FAMILY HISTORY No family history on file. SOCIAL HISTORY Social History Socioeconomic History Marital status: Single Tobacco Use Smoking status: Never Smokeless tobacco: Never Vaping Use Vaping Use: Former Substance and Sexual Activity Alcohol use: Never Drug use: Never SCREENINGS PHYSICAL EXAM ED Triage Vitals [03/17/24 0007] Temp Heart Rate Resp BP 36.6 ?C (97.9 ?F) 97 14 127/89 SpO2 Temp Source Heart Rate Source Patient Position 100 % Oral Monitor Sitting BP Location FiO2 (%) Right arm -- Physical Exam Vitals and nursing note reviewed. Constitutional: General: She is not in acute distress. Appearance: She is well-developed. HENT: Head: Normocephalic and atraumatic. Eyes: Conjunctiva/sclera: Conjunctivae normal. Cardiovascular: Rate and Rhythm: Normal rate and regular rhythm. Heart sounds: No murmur heard. Pulmonary: Effort: Pulmonary effort is normal. No respiratory distress. Breath sounds: Normal breath sounds. Abdominal: Palpations: Abdomen is soft. Tenderness: There is abdominal tenderness in the left lower quadrant. Musculoskeletal: General: No swelling. Cervical back: Neck supple. Skin: General: Skin is warm and dry. Capillary Refill: Capillary refill takes less than 2 seconds. Neurological: Mental Status: She is alert. Psychiatric: Mood and Affect: Mood normal. DIAGNOSTIC RESULTS Procedures/EKG: RADIOLOGY (Per Emergency Physician): Interpretation per the Radiologist below, if available at the time of this note: US OB transvaginal (Results Pending) ED BEDSIDE ULTRASOUND: Performed by ED Physician - none LABS: Labs Reviewed BASIC METABOLIC PANEL - Abnormal Result Value SODIUM 136 POTASSIUM 3.9 CHLORIDE 106 CARBON DIOXIDE 21 (*) UREA NITROGEN 6 (*) CREATININE 0.60 GLUCOSE 87 CALCIUM 9.8 ANION GAP 9 eGFR >90.0 COMPLETE URINALYSIS - Abnormal Color, Urine Light Yellow Clarity, Urine Turbid (*) pH, Urine 7.5 Leukocytes, Urine 250 (*) Nitrite, Urine Negative Protein, Urine Negative Glucose, Urine Normal Bilirubin, Urine Negative Ketones, Urine Negative Urobilinogen, Urine Normal Blood, Urine Negative Volume, Urine 12 mL RBC, Urine Negative WBC, Urine 3-5 Squamous Epithelial, Urine 6-10 (*) Bacteria, Urine Moderate (*) Amorphous Crystals, Urine Moderate (*) SPECIFIC GRAVITY OF URINE (NUMERIC) 1.009 CBC WITH AUTO DIFFERENTIAL - Normal Auto WBC 8.6 RBC 4.42 Hemoglobin 12.5 Hematocrit 37.2 MCV 84.2 MCH 28.3 MCHC 33.6 RDW 12.6 Platelets 266 MPV 10.7 nRBC 0.0 Neutrophils Relative 58.3 Lymphocytes Relative 29.8 Monocytes Relative 8.3 Eosinophils Relative 3.0 Basophils Relative 0.3 Immature Grans % 0.3 Neutrophils Absolute 5.0 Lymphocytes Absolute 2.6 Monocytes Absolute 0.7 Eosinophils Absolute 0.3 Basophils Absolute 0.0 Immature Grans Absolute 0.0 HCG QUANTITATIVE BLOOD HCG QUANTITATIVE 52 Narrative: Values in should double every 2 to 3 days for the fi (more content not included)... Normal [facility] ED Provider Note Emergency Department Encounter [facility] ED Patient: Rosy Dominique : 2005 Date of Evaluation: 03/17/2024 ED Provider: Jarek Ambrose DO Chief Complaint Chief Complaint Patient presents with ? Abdominal Pain ? Back Pain RAYMOND Dominique is a 18 y.o. female who presents to the emergency department complaining of left lower quadrant pain, back pain. Patient reports symptoms that been present, developing over the last week. This is worsened today. Has not taken any medication for the pain. Patient approximately 4 weeks . This is her eighth with 1 living child at home, history of 6 miscarriages. She did undergo hCG testing earlier in the day with a quantitative hCG in the 40s. This was ordered due to her being a high risk . Denies vaginal bleeding. Denies fevers or chills. States that her last menstrual cycle was in early February. Additional history obtained from : n/a Barriers to obtaining history from patient: n/a ROS: Review of Systems completed as follows: (Bold = positive, Not bold = negative) GENERAL: fevers, chills, malaise ENT: runny nose, congestion, sore throat, ear pain NEURO: weakness, numbness of tingling, headache CARDIOVASCULAR: chest pain, syncope PULMONARY: shortness of breath, cough, wheezing GASTROINTESTINAL: nausea, vomiting, abdominal pain, diarrhea, constipation, MUSCULOSKELETAL: pain GENITAL/URINARY: dysuria, hematuria, increased urinary frequency, hesitancy, flank pain SKIN: rash, lesions, wound Past History Past Medical History: Diagnosis Date ? Brugada syndrome ? Cardiomyopathy (HCC) ? Seizure (HCC) last seizure -2023 Past Surgical History: Procedure Laterality Date ? ABSCESS DRAINAGE Right 08/18/2022 breast ? SECTION (HISTORICAL) 07/04/2022 Social History Socioeconomic History ? Marital status: Single Tobacco Use ? Smoking status: Never ? Smokeless tobacco: Never Vaping Use ? Vaping Use: Former Substance and Sexual Activity ? Alcohol use: Never ? Drug use: Never I have reviewed the history above as provided by nursing notes. Medications/Allergies Previous Medications LEVETIRACETAM (KEPPRA) 500 MG TABLET Take 500 mg by mouth in the morning and 500 mg in the evening. [id number] SH OIL ( + COMPLETE MULTI PO) Take by mouth. Allergies Allergen Reactions ? Amoxicillin Anaphylaxis, Itching, Rash and Nausea And Vomiting ? Black [place] Flavor Anaphylaxis ? Bupivacaine Itching, Rash and Shortness of breath ? Chloroprocaine Shortness of breath ? Coconut Fatty Acids Anaphylaxis ? Fentanyl Anaphylaxis ? Ketorolac Anaphylaxis ? Lidocaine Shortness of breath ? Vancomycin Anaphylaxis and Rash ? Dexamethasone Itching and Rash ? Latex Angioedema, Rash and Hives ? Hydrocodone-Acetaminophe n Rash I have reviewed the history above as provided by nursing notes. Physical Exam ED Triage Vitals [03/17/24 0007] Temp Heart Rate Resp BP 36.6 ?C (97.9 ?F) 97 14 127/89 SpO2 Temp Source Heart Rate Source Patient Position 100 % Oral Monitor Sitting BP Location FiO2 (%) Right arm -- GENERAL: The patient appears nourished and normally developed. Vital signs as documented. EYES: PERRL. No scleral icterus or orbital trauma noted. HEENT: Mucous membranes moist. Nares patent without copious rhinorrhea. LUNGS: Lungs are clear to auscultation, without any respiratory distress. CARDIAC: Rhythm is regular. No murmur appreciated ABDOMEN: Tenderness to palpation the left lower quadrant, soft, with no obvious masses, and no peritoneal signs. EXTREMITIES: Non edematous, with no obvious deformities. SKIN: Good color, with no significant rashes. No pallor. NEURO: No obvious neurological deficits, normal sensation and strength bilaterally. Diagnostics Labs: Results for orders placed or performed during the hospital encounter of 03/17/24 CBC auto differential Result Value Ref Range Auto WBC 8.6 3.6 - 10.7 10*3/uL RBC 4.42 3.80 - 5.20 10*6/uL Hemoglobin 12.5 11.7 - 16.0 g/dL Hematocrit 37.2 35.0 - 47.0 % MCV 84.2 77.0 - 99.0 fL MCH 28.3 26.0 - 34.0 pg MCHC 33.6 30.5 - 36.0 % RDW 12.6 11.5 - 15.0 % Platelets 266 140 - 440 10*3/uL MPV 10.7 9.0 - 12.7 fL nRBC 0.0 0.0 - 2.0 /100 WBCs Neutrophils Relative 58.3 38.0 - 82.0 % Lymphocytes Relative 29.8 15.0 - 45.0 % Monocytes Relative 8.3 5.0 - 13.0 % Eosinophils Relative 3.0 0.0 - 6.0 % Basophils Relative 0.3 0.0 - 2.0 % Immature Grans % 0.3 0.0 - 2.0 % Neutrophils Absolute 5.0 1.8 - 7.5 10*3/uL Lymphocytes Absolute 2.6 1.0 - 4.3 10*3/uL Monocytes Absolute 0.7 0.0 - 0.9 10*3/uL Eosinophils Absolute 0.3 0.0 - 0.5 10*3/uL Basophils Absolute 0.0 0.0 - 0.2 10*3/uL Immature Grans Absolute 0.0 <0.1 10*3/uL Basic metabolic panel Result Value Ref Range SODIUM 136 135 - 145 mmol/L POTASSIUM 3.9 3.5 - 5.1 mmol/L CHLORIDE 106 98 - 107 mmol/L CARBON DIOXIDE 21 (L) 22 (more content not included)... Normal [facility] HCG QUANTITATIVE BLOODon HCG QUANTITATIVE 52 mIU/mL Normal Females <=5 [facility] Comment on above: Result Comment: KRISTINA Upton COMMENTS: Values in should double every 2 to 3 days for the first 6 weeks. Elevated concentrations of human chorionic gonadotropin (hCG) measured in the first trimester of are observed in normal , but may serve as an indication of chorionic carcinoma, hydatiform mole, or multiple . Decreasing hCG concentrations indicate threatened or missed , recent termination of , ectopic , gestosis or intrauterine . Janene- and postmenopausal females may have detectable hCG concentrations (< or = to 14 mIU/mL) due to pituitary production of hCG. Serum follicle-stimulating hormone measurement may aid in ruling-out in this population. Cutoffs of greater than 20 to 45 mIU/mL have been suggested and are method dependent. False-elevations (called phantom human chorionic gonadotropin: hCG) may occur with patients who have human antianimal or heterophilic antibodies. Some specimens may not dilute linearly due to abnormal forms of hCG. Elevated hCG concentrations not associated with are found in patients with other diseases such as tumors of the germ cells, ovaries, bladder, pancreas, stomach, lungs, and liver. This test is not intended to detect or monitor tumors or gestational trophoblastic disease. Performed By: #### L [id number], [id number] ####Radio Dispatcher: KIMBERLY OSORIO ([id number])[facility] (RLAB)[address] [place] [address] Laboratory - Chemistry and C hemistry - challengeon 03-17-2024 HCG.beta subunit Qn 52 m[IU]/mL Females <=5 mIU/mL [facility] N. gonorrhoeae DNA ROWENA+probe Ql (Cervical mucus)on 03-17-2024 C. trachomatis DNA ROWENA+probe Ql (Unsp spec) Not detected Not Detected [facility] Interpretation and review of laboratory results Normal [facility] N gonorrhoeae, DNA Probe Not detected Not Detected [facility] Methodology: real-ti me PCR This test is intended for medical purposes only and is not intended for the evaluation of suspected sexual abuse or for other forensic purposes. In certain contexts, culture may be required to meet applicable laws and regulations for diagnosis of C. trachomatis and N. gonorrhoeae infections. Per 2014 CDC recommmendations, this test does not include confirmation of positive results by an alternative nucleic acid target. A negative result does not exclude the possibility of infection. A result of invalid indicates that a new specimen should be collected if clinically indicated. [facility] No Panel Informationon 03-17 Values in should double every 2 to 3 days for the first 6 weeks. Elevated concentrations of human chorionic gonadotropin (hCG) measured in the first trimester of are observed in normal , but may serve as an indication of chorionic carcinoma, hydatiform mole, or multiple . Decreasing hCG concentrations indicate threatened or missed , recent termination of , ectopic , gestosis or intrauterine . Janene- and postmenopausal females may have detectable hCG concentrations (< or = to 14 mIU/mL) due to pituitary production of hCG. Serum follicle-stimulating hormone measurement may aid in ruling-out in this population. Cutoffs of greater than 20 to 45 mIU/mL have been suggested and are method dependent. False-elevations (called phantom human chorionic gonadotropin: hCG) may occur with patients who have human antianimal or heterophilic antibodies. Some specimens may not dilute linearly due to abnormal forms of hCG. Elevated hCG concentrations not associated with are found in patients with other diseases such as tumors of the germ cells, ovaries, bladder, pancreas, stomach, lungs, and liver. This test is not intended to detect or monitor tumors or gestational trophoblastic disease. [facility] Nursing Noteon 03-17-2024 Nursing Note Instructions and rx given with verbalized understanding pt and family tolerated clear liquid and cracker well up to bathroom with assist tolerated activity well -voided without problem Normal [facility] Op Noteon 03-17-2024 Op Note Pre-operative Diagno sis :pelvic pain, of unknown location Post-operative Diagnosis: Same Procedure: diagnostic laparoscopy, pelvic exam under anesthesia Anesthesia: general Surgeon:an Estimated Blood Loss: minimal Complications: none Specimens: cx Findings: normal appearance uterus, bilateral fallopian tubes; left ovarian cyst with rotation of left ovary into anterior cul-de-sac The patient was brought to the operative suite and placed under general anesthesia. The patient was placed in dorsal lithotomy position. Pelvic exam revealed closed cervix no blood +discharge. Culture gc/ct sent., she was then prepped and draped in the normal sterile fashion. A speculum was placed into the vagina and a sponge stick was placed in the vagina. A decker catheter was then placed into the bladder. Clear urine was noted. Attention was then directed to the patients abdomen. Towel clamps were placed janene-umbically and the abdomen was tented. A Veres needle was inserted into he umbilicus, CO2 gas was connected and a pneumoperitoneum was allowed to fill to the appropriate pressure. A 5 mm incision was made in the umbilicus. A 5 mm trochar was inserted into this site. Introduction of the laparoscopic camera revealed no signs of trauma and no evidence of bleeding. Finding as noted above were documented. At this point 5mm accessory port(s) were placed in theLeft lower quadrants. The above findings were noted. The left ovary was manipulated out of the anterior cul-de-sac and placed in its normal position. At this point the procedure was deemed complete. Pneumoperitoneum was allowed to release. Trochars were removed. The incisions were re-approximated using 4-0 monocryl suture. Dermabond was placed. All instrumentation was removed from the vagina. [place], sponges, and instruments were counted times two and noted to be correct. The patient was awakened from anesthesia and brought to the recovery room in stable condition. She tolerated the procedure well. Normal [facility] US OB TRANSVAGINALon 024 US OB TRANSVAGINAL [facility] 2005 [id number] Exam Date/Time: 03/17/2024 04:51 Procedure: US OB TRANSVAGINAL Ordering Provider: CHANDLER BRIGID Reason For Exam: pelvic pain, < 1 month . Eval for ectopic vs ovarian torsion EXAMINATION: Obstetric ultrasound. EXAM DATE AND TIME: 03/17/2024 4:51 AM EDT INDICATION: pelvic pain, < 1 month . Eval for ectopic vs ovarian torsion ADDITIONAL INFORMATION: 18-year-old female with pelvic pain and status presents for evaluation COMPARISON: None LIMITATIONS: None TECHNIQUE: Ultrasound real-time scan with image documentation using a transvaginal approach to evaluate the pelvic contents was performed. Color and spectral Doppler evaluation was also performed. FINDINGS: : test date: 03/17/2024. Beta hCG level: 52 mIU/mL. Last menstrual period: 02/14/2020. status: Ab1. Gestational sac size: Not seen. pole length: Not seen. Cardiac activity: Not seen. Yolk sac: Not seen. Uterus: Size: 8.4 x 4.6 x 5.8 cm. Position: Anteverted. Masses: None. Endometrial thickness: 15 mm. Cervical length: 4.0 cm. The cervix appears closed. Free fluid: Small volume free fluid is present in the cul-de-sac. Right ovary: Ovarian size: 2.6 x 2.5 x 2.4 cm. Waveforms: Normal waveforms are present by Doppler analysis. Parenchyma: Normal morphology and echotexture. Left ovary Ovarian size: 3.6 x 2.5 x 3.7 cm. Waveforms: Normal waveforms are present by Doppler analysis. Parenchyma: Normal morphology and echotexture. Complex left ovarian cyst measures 2.0 x 1.9 x 1.8 cm, possibly relating to a corpus luteum. Other findings None. IMPRESSION: 1. No intrauterine identified at this time. Continued follow-up serial beta hCGs and pelvic ultrasounds are recommended. 2. Possible corpus luteum in the left ovary. Report Dictated on Electronically Signed By: Chuck Boo MD Electronically Signed Date/Time: 03/17/2024 4:59 AM EDT [facility] US Pelvis transvaginalon 1. No intrauterine identified at this time. Continued follow-up serial beta hCGs and pelvic ultrasounds are recommended. 2. Possible corpus luteum in the left ovary. Report Dictated on Electronically Signed By: Chuck Boo MD Electronically Signed Date/Time: 03/17/2024 4:59 AM EDT [facility] Patient Name: ROSY DOMINIQUE : 2005 Exam Date/Time: 03/17/2024 04:51 Procedure: US OB TRANSVAGINAL Ordering Provider: CHANDLER BRIGID Reason For Exam: pelvic pain, < 1 month . Eval for ectopic vs ovarian torsion EXAMINATION: Obstetric ultrasound. EXAM DATE & TIME: 03/17/2024 4:51 AM EDT INDICATION: pelvic pain, < 1 month . Eval for ectopic vs ovarian torsion ADDITIONAL INFORMATION: 18-year-old female with pelvic pain and status presents for evaluation COMPARISON: None LIMITATIONS: None TECHNIQUE: Ultrasound real-time scan with image documentation using a transvaginal approach to evaluate the pelvic contents was performed. Color and spectral Doppler evaluation was also performed. FINDINGS: : test date: 03/17/2024. Beta hCG level: 52 mIU/mL. Last menstrual period: 02/14/2020. status: Ab1. Gestational sac size: Not seen. pole length: Not seen. Cardiac activity: Not seen. Yolk sac: Not seen. Uterus: Size: 8.4 x 4.6 x 5.8 cm. Position: Anteverted. Masses: None. Endometrial thickness: 15 mm. Cervical length: 4.0 cm. The cervix appears closed. Free fluid: Small volume free fluid is present in the cul-de-sac. Right ovary: Ovarian size: 2.6 x 2.5 x 2.4 cm. Waveforms: Normal waveforms are present by Doppler analysis. Parenchyma: Normal morphology and echotexture. Left ovary Ovarian size: 3.6 x 2.5 x 3.7 cm. Waveforms: Normal waveforms are present by Doppler analysis. Parenchyma: Normal morphology and echotexture. Complex left ovarian cyst measures 2.0 x 1.9 x 1.8 cm, possibly relating to a corpus luteum. Other findings None. [facility] Chuck Boo MD - 03/17/2024 Patient Name: [facility]QUE [facility] 2005 [id number] Exam Date/Time: 03/17/2024 04:51 Procedure: US OB TRANSVAGINAL Ordering Provider: CHANDLER BRIGID Reason For Exam: pelvic pain, < 1 month . Eval for ectopic vs ovarian torsion EXAMINATION: Obstetric ultrasound. EXAM DATE & TIME: 03/17/2024 4:51 AM EDT INDICATION: pelvic pain, < 1 month . Eval for ectopic vs ovarian torsion ADDITIONAL INFORMATION: 18-year-old female with pelvic pain and status presents for evaluation COMPARISON: None LIMITATIONS: None TECHNIQUE: Ultrasound real-time scan with image documentation using a transvaginal approach to evaluate the pelvic contents was performed. Color and spectral Doppler evaluation was also performed. FINDINGS: : test date: 03/17/2024. Beta hCG level: 52 mIU/mL. Last menstrual period: 02/14/2020. status: Ab1. Gestational sac size: Not seen. pole length: Not seen. Cardiac activity: Not seen. Yolk sac: Not seen. Uterus: Size: 8.4 x 4.6 x 5.8 cm. Position: Anteverted. Masses: None. Endometrial thickness: 15 mm. Cervical length: 4.0 cm. The cervix appears closed. Free fluid: Small volume free fluid is present in the cul-de-sac. Right ovary: Ovarian size: 2.6 x 2.5 x 2.4 cm. Waveforms: Normal waveforms are present by Doppler analysis. Parenchyma: Normal morphology and echotexture. Left ovary Ovarian size: 3.6 x 2.5 x 3.7 cm. Waveforms: Normal waveforms are present by Doppler analysis. Parenchyma: Normal morphology and echotexture. Complex left ovarian cyst measures 2.0 x 1.9 x 1.8 cm, possibly relating to a corpus luteum. Other findings None. IMPRESSION: 1. No intrauterine identified at this time. Continued follow-up serial beta hCGs and pelvic ultrasounds are recommended. 2. Possible corpus luteum in the left ovary. Report Dictated on Electronically Signed By: Chuck Boo MD Electronically Signed Date/Time: 03/17/2024 4:59 AM EDT [facility] Radiology Study observation (narrative) [facility] US Pelvis transvaginalOrdere d By: Chuck Boo on 03-17-2024 [facility] Work Phone: Urinalysis complete panel (U )Ordered By: Lena Alamo on 03-17-2024 Amorphous Crystals, Urine Moderate Abnormal Negative /HPF [facility] Bacteria LM.HPF (Urine sed) [#/Area] Moderate Abnormal Negative /HPF [facility] Bilirubin Ql (U) Negative Negative mg/dL [facility] Clarity (U) Turbid Abnormal Clear [facility] Color (U) Light Yellow Lt. Yellow [facility] Epithelial cells.squamous LM.HPF (Urine sed) [#/Area] 6-10 Abnormal [facility] Glucose Ql (U) Normal Normal (<70) mg/dL [facility] Hemoglobin Ql (U) Negative Negative mg/dL [facility] Interpretation and review of laboratory results Abnormal [facility] Ketones (U) [Mass/Vol] Negative Negative mg/dL [facility] Leukocyte esterase Test strip Ql (U) 250 Abnormal Negative Trisha/uL [facility] Nitrite Ql (U) Negative Negative [facility] pH (U) 7.5 [pH] 5.0 - 8.0 pH [facility] Protein (U) [Mass/Vol] Negative Negative mg/dL [facility] RBC LM.HPF (Urine sed) [#/Area] Negative [facility] [facility]U) [Rel density] 1.009 1.005 - 1.030 [facility] Urobilinogen (U) [Mass/Vol] Normal Normal (0-1) mg/dL [facility] Volume, Urine 12 mL [facility] WBC LM.HPF (Urine sed) [#/Area] 3-5 [facility] Progress Noteon 10-22-2023 [employer] Authentication Interface Message Text We had the pleasure of seeing Rosy Dominique in the Heart [facility] at [facility] on October 22, 2023. As you know, Rosy is a 18 y.o. 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 She was last seen in [facility] on October 30, 2021. Per report, prior interventions have included increased hydration and a trial of Florinef that resulted in worsening of symptoms. Rosy notes continued daily symptoms of dizziness associated with headache, blurry vision, and brief loss of consciousness. Rosy drinks a minimum of 80 ounces of caffeine free fluid daily. Past medical history was reviewed and significant for seizure disorder and syncope. Current medications are none. There are allergies to amoxicillin, coconut, vicodin, vancomycin, walnut, bupivicane, dexamethasone, ketorolac, and latex. On review of systems, 10 of 14 systems were reviewed and were negative other than noted above. Family history was reviewed and is negative for congenital heart disease, premature coronary artery disease, sudden , and known cardiomyopathy. On review of social history Rosy lives with her family in [place], [place]. Physical exam showed: Vitals: Weight - Scale: 50.9 kg, 20 %ile (Z= -0.83) based on CDC (Girls, 2-20 Years) [id number] data using vitals from 10/22/2023. Height: 172.5 cm, 92 %ile (Z= 1.43) based on [facility] (Girls, 2-20 Years) [id number] data based on Stature recorded on 10/22/2023. Heart rate was 70 beats per minute, respiratory rate was 20 breaths per minute, and blood pressure was 95/55 mmHg. Orthostatic vital signs are positive. In general, Rosy is acyanotic, well developed, well nourished, and in no acute distress. HEENT exam revealed that mucous membranes are moist. There is no thyromegaly or cervical lymphadenopathy. Respirations are comfortable. There is no use of accessory muscles. There are no retractions. Auscultation reveals good air movement bilaterally without wheezes, rales, or rhonchi. On palpation of the precordium, there are no lifts, heaves, or thrills. Auscultation reveals regular rate and rhythm with a normal S1 and physiologically split S2. There is no ejection click. There is no murmur, gallop, or rub. Radial and posterior tibial pulses are 2+, with no delay. Abdomen is soft, non-tender, and non-distended. There is no abdominal bruit. Liver is not palpable. Spleen is not palpable. Extremity exam reveals no cyanosis, clubbing, or edema. Extremities are warm and well perfused. Neurologic exam is grossly intact. There are no rashes or bruises on skin exam. A 12-lead ECG performed today that I personally reviewed is normal with sinus rhythm and a ventricular rate of 69, VA interval of 127 msec, QRS duration of 108 msec, QTc of 414 msec, QRS axis of +65 degrees, no atrial enlargement, no ventricular hypertrophy, and no ST/T changes. A transthoracic echocardiogram performed today that I personally reviewed demonstrated normal cardiac anatomy and normal left and right ventricular size and systolic function. DIAGNOSES: Syncope. 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 ASSESSMENT: Rosy is a 18 y.o. female with syncope that remains likely most consistent with a vasovagal etiology. 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 We will screen for arrhythmia associated with daily syncope by Holter monitor. RECOMMENDATIONS: 1. Continue primary medical care as directed. 2. No cardiac medications recommended. Continue to drink a minimum of 80-100 ounces of caffeine free fluid daily. 3. No activity restrictions from a cardiovascular perspective. 4. No restrictions or special requirements for anesthesia from a cardiovascular perspective. 5. We will plan to see Rosy in follow-up in 3 months for repeat evaluation. In the interim, we will follow-up the Holter monitor results by phone. We will consider additional referral to [facility] for tilt table testing as appropriate. Total encounter time was 40 minutes, which includes chart review, counseling, documentation and/or coordination of care. Normal [facility] Progress Noteon 07-24-2023 [employer] Authentication Interface Message Text Reason for Consult/Chief Concern: Rosy is a 18 year old female with a reported history of seizures, syncope and an abnormal EEG. Primary Care Doctor: Connor Martini DO History of Present Illness (Location, Quality, Severity, Duration, Timing, Context. Modifying Factors, Associated Signs & Symptoms): Rosy was seen for evaluation of possible genetic causes of her seizure and syncope and family history of seizures. Past Medical History: Rosy's son, Alice Elder, was referred for seizure like activity (5 episodes within 30 min of full-body shaking followed by decreased tone and fussiness) with a normal EEG. At the time of the visit, Rosy shared a hx of syncope, seizures (on Keppra with breakthrough seizures) and an abnormal EEG in November, with a family history of reported syncope and seizures, and a maternal grandfather with a history of heart attacks prior to 60 years of age. Since neurological manifestations such as seizures can be manifestations of cardiac arrhythmias, additional information was gathered on Rosy during the visit. Patient Active Problem List Diagnosis Syncope Seizure Rosy reports a personal history of epilepsy (seizures started at 12-13 thought due to hypoglycemia) - she reports she is on Keppra but having breakthrough seizures about 1x/wk with last seizure a few days ago. Her Neurologist is in [place] although she stated that her primary care physician prescribes her Keppra since she stated it takes a long time to get an appointment with Neurology. Rosy stated she would attempt to get EEG and additional records regarding seizure diagnosis and treatment. Rosy stated that she has had diabetes since at 8-9 years of age that she controls with diet. Rosy reports syncope 5-10x/day. She stated that in November, she passed out and hit her head on the couch and came into the hospital with chest pains. She stated that they performed the ECG (below) and was told by her primary care physician that she needed to schedule an appointment with Cardiology which has not been done. 12/08/22 ECG: Component Ref Range & Units 7 mo ago Ventricular Rate BPM 68 Atrial Rate BPM 68 P-R Interval ms 124 QRS Duration ms 102 QT Interval ms 390 QTC Calculation (Bazett) ms 414 Calculated P Needham degrees 76 Calculated R Needham degrees 64 Calculated T [place] degrees 55 Resulting [facility] Impression Performed by [facility] NORMAL SINUS RHYTHM POSSIBLE LEFT ATRIAL ENLARGEMENT RSR' PATTERN IN V1 SUGGESTS INCOMPLETE RIGHT BUNDLE BRANCH BLOCK ANTERIOR T WAVE ABNORMALITY ABNORMAL ECG 10/30/21 [facility] for cardiac evaluation. Previous history of POTS. Was on Florinef for about 6-8 months, but states her symptoms did not subside or resolve. Reports she passes out frequently, sometimes multiple times a day; can occur with position changes or lying down in her bed. She also notes chest pain occurring five times a day. Has history of hypoglycemia, and when her blood sugars drop below 70 she becomes symptomatic. 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 STUDIES: 1. ECG(10/30/2021): Sinus rhythm @ 87 bpm, left atrial enlargement, RSR prime in V1 or V2, probable normal variant Measurements Intervals Needham Rate: 87 P: 72 VA: 125 QRS: 63 QRSD: 77 T: 59 QT: 356 QTc: 429 Interpretive Statements Sinus rhythm RSR' in V1 or V2, probably normal variant Normal EKG 2. ECHO (10/30/2021): Normal echocardiogram SUMMARY: 1. Normal cardiac anatomy. 2. Normal left and right ventricular size, wall thickness, and systolic function. Normal left ventricular diastolic function indexes. 3. Normal echocardiogram. At that time, Cardiology did not believe the symptoms were cardiac in etiology. Due to hx of POTS, encouraged increased fluid and salt intake. Recommended follow up with Rheumatology for further evaluation of hypermobility. Follow up if symptoms change, worsen or fail to improve. 11/22/21 work-up at [facility] Rheumatology for hypermobility. Discussed physical therapy referral to address the need for strengthening, joint protection, assessment for adaptive aids and shoe inserts, as well as a home exercise and reconditioning program. Rosy reported a recent work up for question of breast cancer versus benign lesion. She has a follow up appointment at the [facility] on 07/28/23. Discussed that besides her grandmother, the fx is not strongly suggestive of an inherited predisposition to breast cancer. If she does receive this dx at [facility], genetic counseling cancer consult would be indicated due to her young age of onset. 07/23/23 Ultrasound of Right Breast: RESULT: No prior exams were available for comparison. Color flow and real-time ultrasound of the right breast 12 o'clock region were performed. Linares scale images of the real-time examination were reviewed. T (more content not included)... Normal [facility] Absolute lymphocyte countOrd ered By: Matthias Lemos on 06-09-2023 Lymphocytes Auto (Unsp spec) [#/Vol] 2.81 10*3/uL 0.83-4.51 [facility] Basophil percentageOrdered B y: Matthias Lemos on 06-09-2023 Basophils/100 WBC (Bld) 0.4 % 0-1 [facility] Chloride [Moles/Vol] 106 mmol/L 98-107 [facility] Eosinophils/100 WBC (Bld) 1.4 % 0-3 [facility] Glucose [Mass/Vol] 74 mg/dL 74-106 [facility] Neutrophils (Bld) [#/Vol] 2.3 10*3/uL 2.0-7.7 [facility] Neutrophils/100 WBC (Bld) 40.7 % 34-64 [facility] Potassium [Moles/Vol] 3.6 mmol/L 3.5-5.1 [facility] Sodium [Moles/Vol] 138 mmol/L 136-145 [facility] WBC (Bld) [#/Vol] 5.7 10*3/uL 4.5-13.0 [facility] Blood erythrocytes count (nu mber/volume)Ordered By: Matthias Lemos on 06-09-2023 RBC (Bld) [#/Vol] 4.57 10*6/uL 4.1-4.8 [facility] Blood hemoglobin measurement (mass/volume)Ordered By: Matthias Lemos on 06-09-2023 Hemoglobin (Bld) [Mass/Vol] 12.8 g/dL 12.0-15.0 [facility] Blood lymphocytes/100 leukoc ytesOrdered By: Matthias Lemos on 06-09-2023 Lymphocytes/100 WBC (Bld) 49.4 % 25-45 [facility] Blood monocytes/100 leukocyt esOrdered By: Matthias Lemos on 06-09-2023 Monocytes/100 WBC (Bld) 7.9 % 3-6 [facility] Blood platelet mean volumeOr dered By: Matthias Lemos on 06-09-2023 Platelet mean volume (Bld) [Entitic vol] 11.7 fL 6.2-12.0 [facility] Determination of erythrocyte mean corpuscular volume (MCV)Ordered By: Matthias Lemos on 06-09-2023 MCV (RBC) [Entitic vol] 86.0 fL 78-96 [facility] Hematocrit Auto (Bld) [Volum e fraction]Ordered By: Matthias Lemos on 06-09-2023 Hematocrit (Bld) [Volume fraction] 39.3 % 37-46 [facility] Laboratory - Chemistry and C hemistry - challengeOrdered By: Matthias Lemos on 06-09-2023 CO2 [Moles/Vol] 27.0 mmol/L 21.0-32.0 [facility] Magnesium [Mass/Vol] 2.2 mg/dL 1.6-2.6 [facility] Urea nitrogen/Creatinine [Mass ratio] 17.4 mg/mg 10-20 [facility] Laboratory - Hematology and Cell countsOrdered By: Matthias Lemos on 06-09-2023 Erythrocyte distribution width (RBC) [Entitic vol] 41.0 fL 35.1-43.9 [facility] Erythrocyte distribution width (RBC) [Ratio] 13.3 % 11.6-14.6 [facility] Immature granulocytes/100 WBC (Bld) 0.200 % 0.0-0.9 [facility] Comment on above: IG% - Immature Granu locytes (promyelocytes, myelocytes and metamyelocytes) > 1% indicates that a LEFT SHIFT is Present. MCH (RBC) [Entitic mass] 28.0 pg 25.0-35.0 [facility] Nucleated RBC/100 WBC (Bld) [Ratio] 0 % 0-5 [facility] MCHC Auto (RBC) [Mass/Vol]Or dered By: Matthias Lemos on 06-09-2023 MCHC (RBC) [Mass/Vol] 32.6 g/dL 32-36 [facility] No Panel InformationOrdered By: Matthias Lemos on 06-09-2023 Estimated Creatinine Clearance Calc 87.59 ml/min [facility] Estimated GFR (MDRD) Amer 110 mL/min >60 [facility] Comment on above: GFR Calc Estimated GFR (MDRD) Non-Af Amer 91 mL/min >60 [facility] Comment on above: Non- GFR Calc Thyroid Stimulating Hormone (TSH) 1.88 uIU/mL 0.358-3.74 [facility] Troponin I High Sensitivity < 3 pg/mL 3.0-54.0 [facility] Comment on above: Please Note: New Radha t Units and Gender Specific Reference Ranges. For more information see Policy Stat Procedure [place] High Sensitivity Troponin (TNIH) and attachments. Platelets bldOrdered By: Phillip Lemos on 06-09-2023 Platelets (Bld) [#/Vol] 241 10*3/uL 150-450 [facility] Serum or plasma calcium luc urement (mass/volume)Ordered By: Matthias Lemos on 06-09-2023 Calcium [Mass/Vol] 9.4 mg/dL 8.5-10.1 [facility] Serum or plasma creatinine m easurement (mass/volume)Ordered By: Matthias Lemos on 06-09-2023 Creatinine [Mass/Vol] 0.86 mg/dL 0.55-1.02 [facility] Comment on above: The validity of the calculated GFR & GFRAA in patients over 70 years has not been determined. Clinical correlation is essential. Serum or plasma urea nitroge n measurement (mass/volume)Ordered By: Matthias Lemos on 06-09-2023 Urea nitrogen [Mass/Vol] 15 mg/dL 7-18 [facility] Thin prep Papanicolaou smear with manual screeningOrdered By: Matthias Lemos on 06-09-2023 Thin prep Papanicolaou smear with manual screening 5 5-15 [facility] .Auto Diffon 06-03-2023 Basophil, Absolute 0.0 10 3/mcL Normal 0.0-0.2 [facility] ([place]) Comment on above: Performed By: #### M DW, ANEU, ADIFF, GFR, CBC, BMP #### [address] [address] Basophils/100 WBC (Bld) 0.6 % Normal 0.0-2.5 [facility] ([place]) Comment on above: Performed By: #### M DW, ANEU, ADIFF, GFR, CBC, BMP #### [address] [address] Eosinophil, Absolute 0.1 10 3/mcL Normal 0.0-0.4 [facility] ([place]) Comment on above: Performed By: #### M DW, ANEU, ADIFF, GFR, CBC, BMP #### [address] [place] [address] Eosinophils/100 WBC (Bld) 1.5 % Normal 0.0-7.0 [facility] ([place]) Comment on above: Performed By: #### M DW, ANEU, ADIFF, GFR, CBC, BMP #### [address] [address] Lymphocyte, Absolute 2.1 10 3/mcL Normal 0.8-3.9 [facility] ([place]) Comment on above: Performed By: #### M DW, ANEU, ADIFF, GFR, CBC, BMP #### [address] [address] Lymphocytes/100 WBC (Bld) 29.4 % Normal 10.0-50.0 [facility] ([place]) Comment on above: Performed By: #### M DW, ANEU, ADIFF, GFR, CBC, BMP #### [address] [address] Monocyte, Absolute 0.5 10 3/mcL Normal 0.2-1.0 [facility] ([place] Comment on above: Performed By: #### M DW, ANEU, ADIFF, GFR, CBC, BMP #### [address] [address] Monocytes/100 WBC (Bld) 6.6 % Normal 1.7-13.0 [facility] ([place]) Comment on above: Performed By: #### M DW, ANEU, ADIFF, GFR, CBC, BMP #### [address] [address] Neutrophils/100 WBC (Bld) 61.9 % Normal 37.0-80.0 [facility] ([place]) Comment on above: Performed By: #### M DW, ANEU, ADIFF, GFR, CBC, BMP #### [address] [address] .GFRon 06-03-2023 GFR Non- 88 ml/min/1.73sqm Normal [facility] ([place]) Comment on above: Result Comment: GFR Population mean for , Non- Americans Ages 20-29 = 116 mL/min/1.73 sq.m. Ages 30-39 = 107 mL/min/1.73 sq.m. Ages 40-49 = 99 mL/min/1.73 sq.m. Ages 50-59 = 93 mL/min/1.73 sq.m. Ages 60-69 = 85 mL/min/1.73 sq.m. Ages 70+ = 75 mL/min/1.73 sq.m. Chronic Kidney Disease: Less than 60 mL/min/1.73 square meters End Stage Renal Disease: Less than 15 mL/min/1.73 square meters Performed By: #### M DW, ANEU, ADIFF, GFR, CBC, BMP #### [address] [address] GFR 107 ml/min/1.73sqm Normal [facility] ([place]) Comment on above: Result Comment: GFR Population mean for , Non- Americans Ages 20-29 = 116 mL/min/1.73 sq.m. Ages 30-39 = 107 mL/min/1.73 sq.m. Ages 40-49 = 99 mL/min/1.73 sq.m. Ages 50-59 = 93 mL/min/1.73 sq.m. Ages 60-69 = 85 mL/min/1.73 sq.m. Ages 70+ = 75 mL/min/1.73 sq.m. Chronic Kidney Disease: Less than 60 mL/min/1.73 square meters End Stage Renal Disease: Less than 15 mL/min/1.73 square meters Performed By: #### M DW, ANEU, ADIFF, GFR, CBC, BMP #### [address] [address] .MDWon 06-03-2023 Monocyte Distribution Width 16.44 Normal 0.00-20.00 [facility] ([place]) Comment on above: Result Comment: For ED adult patients suspected of sepsis, MDW<=20.0 does not rule out sepsis or risk of sepsis Performed By: #### M DW, ANEU, ADIFF, GFR, CBC, BMP #### [address] [address] .NEUABSon 06-03-2023 Neutrophil, Absolute 4.4 10 3/mcL Normal 2.9-6.2 [facility] ([place]) Comment on above: Performed By: #### M DW, ANEU, ADIFF, GFR, CBC, BMP #### [address] [address] BMPon 06-03-2023 BUN/Creatinine Ratio 12 ratio Normal 7-27 [facility] ([place]) Comment on above: Performed By: #### M DW, ANEU, ADIFF, GFR, CBC, BMP #### [address] [address] Calcium [Mass/Vol] 9.5 mg/dL Normal 8.4-10.2 [facility] ([place]) Comment on above: Performed By: #### M DW, ANEU, ADIFF, GFR, CBC, BMP #### [address] [address] Chloride [Moles/Vol] 102 mmol/L Normal 98-107 [facility] ([place] Comment on above: Performed By: #### M DW, ANEU, ADIFF, GFR, CBC, BMP #### [address] [address] CO2 [Moles/Vol] 29 mmol/L Normal 22-29 [facility] ([place]) Comment on above: Performed By: #### M DW, ANEU, ADIFF, GFR, CBC, BMP #### [address] [address] Creatinine [Mass/Vol] 0.84 mg/dL Normal 0.55-1.02 [facility] ([place]) Comment on above: Performed By: #### M DW, ANEU, ADIFF, GFR, CBC, BMP #### [address] [address] Electrolyte Balance 8.0 mEq/L Normal 4.0-15.0 [facility] ([place]) Comment on above: Performed By: #### M DW, ANEU, ADIFF, GFR, CBC, BMP #### [address] [address] Glucose [Mass/Vol] 99 mg/dL Normal 70-105 [facility] ([place]) Comment on above: Performed By: #### M DW, ANEU, ADIFF, GFR, CBC, BMP #### [address] [address] Potassium [Moles/Vol] 4.2 mmol/L Normal 3.5-5.1 [facility] ([place]) Comment on above: Performed By: #### M DW, ANEU, ADIFF, GFR, CBC, BMP #### [address] [address] Sodium [Moles/Vol] 139 mmol/L Normal 136-145 [facility] ([place]) Comment on above: Performed By: #### M DW, ANEU, ADIFF, GFR, CBC, BMP #### [address] [address] Urea nitrogen [Mass/Vol] 10 mg/dL Normal 7-18 [facility] ([place]) Comment on above: Performed By: #### M DW, ANEU, ADIFF, GFR, CBC, BMP #### [address] [address] CBCon 06-03-2023 Erythrocyte distribution width (RBC) [Ratio] 13.9 % Normal 11.5-14.5 [facility] ([place]) Comment on above: Performed By: #### M DW, ANEU, ADIFF, GFR, CBC, BMP #### [address] [address] Hematocrit (Bld) [Volume fraction] 39.3 % Normal 37.0-47.0 [facility] ([place]) Comment on above: Performed By: #### M DW, ANEU, ADIFF, GFR, CBC, BMP #### [address] [address] Hgb 13.2 G/dL Normal 12.0-16.0 [facility] ([place]) Comment on above: Performed By: #### M DW, ANEU, ADIFF, GFR, CBC, BMP #### [address] [address] MCH (RBC) [Entitic mass] 28.0 pg Normal 27.0-31.2 [facility] ([place]) Comment on above: Performed By: #### M DW, ANEU, ADIFF, GFR, CBC, BMP #### [address] [address] MCHC 33.6 G/dL Normal 33.0-37.0 [facility] ([place]) Comment on above: Performed By: #### M DW, ANEU, ADIFF, GFR, CBC, BMP #### [address] [address] MCV (RBC) [Entitic vol] 83.2 fL Normal 80.0-94.0 [facility] ([place]) Comment on above: Performed By: #### M DW, ANEU, ADIFF, GFR, CBC, BMP #### [address] [address] Platelet 205 10 3/mcL Normal 130-400 [facility] ([place]) Comment on above: Performed By: #### M DW, ANEU, ADIFF, GFR, CBC, BMP #### [address] [address] Platelet mean volume (Bld) [Entitic vol] 9.3 fL Normal 7.4-10.4 [facility] ([place]) Comment on above: Performed By: #### M DW, ANEU, ADIFF, GFR, CBC, BMP #### [address] [address] RBC 4.73 10 6/mcL Normal 4.20-5.40 [facility] ([place]) Comment on above: Performed By: #### M DW, ANEU, ADIFF, GFR, CBC, BMP #### [address] [address] WBC 7.0 10 3/mcL Normal 4.6-10.8 [facility] ([place]) Comment on above: Performed By: #### M DW, ANEU, ADIFF, GFR, CBC, BMP #### [place] [id number] PREGUon 06-03-2023 HCG ( test) Ql (U) Negative Normal [facility] ([place]) Comment on above: Performed By: #### P REGU #### [address] [address] test (u) int Not detected Invalid Interpretation Code [facility] ([place]) Comment on above: Performed By: #### P REGU #### [place] [address] [place], [place] [address] XR SHOULDER GENERAL 3V OR MO RE AP/TRUE AP/OTHER LEFTon 05-06-2023 [facility] XR Shoulder - left 3 Viewson 05-06-2023 IMPRESSION: No fracture identified. 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 Date/Time: May 06 2023 4:28P Dictated by : DINESH FRENCH DO This examination was interpreted and the report reviewed and electronically signed by: DINESH FRENCH DO on May 06 2023 4:30PM [facility] DIVISION OF RADIOLOGY * * *Final Report* * * DATE OF EXAM: May 06 2023 4:24PM WOX 5252 - XR SHLDR >/=3V AP/ANI AP/OTHR LT / PROCEDURE REASON: Acute pain of left shoulder * * * * Physician Interpretation * * * * EXAM: XR SHLDR >/=3V AP/ANI AP/OTHR LT -- LEFT TECHNIQUE: 3 views of the left shoulder EXAM DATE: 05/06/2023 4:24 PM CLINICAL HISTORY: Acute pain of left shoulder COMPARISON: None FINDINGS: The left humeral head is well positioned at the bony glenoid. No fracture or dislocation is seen. Lucency and prominence at the lateral proximal humeral diaphysis are likely due to the deltoid insertion. The visualized left ribs are intact. DIVISION OF RADIOLOGY Provider, [facility] - 05/06/2023 * * *Final Report* * * DATE OF EXAM: May 06 2023 4:24PM WOX 5252 - XR SHLDR >/=3V AP/ANI AP/OTHR LT / PROCEDURE REASON: Acute pain of left shoulder * * * * Physician Interpretation * * * * EXAM: XR SHLDR >/=3V AP/ANI AP/OTHR LT -- LEFT TECHNIQUE: 3 views of the left shoulder EXAM DATE: 05/06/2023 4:24 PM CLINICAL HISTORY: Acute pain of left shoulder COMPARISON: None FINDINGS: The left humeral head is well positioned at the bony glenoid. No fracture or dislocation is seen. Lucency and prominence at the lateral proximal humeral diaphysis are likely due to the deltoid insertion. The visualized left ribs are intact. IMPRESSION IMPRESSION: No fracture identified. 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 Toribio on 04-03-2023 Free T4 [Mass/Vol] 0.89 ng/dL 0.76-1.46 [facility] T4 [Mass/Vol] 7.7 ug/dL 4.8-13.9 [facility] No Panel InformationOrdered By: Dr. Toribio on 04-03-2023 Free Triiodothyronine (T3) pg/dL 2.2 pg/mL 2.18-3.98 [facility] Thyroid Stimulating Hormone (TSH) 1.31 uIU/mL 0.358-3.74 [facility] Total Triiodothyronine 0.93 ng/mL 0.6-1.81 [facility] Serum or plasma thyroxine bi nding globulin (TBG) measurement (mass/volume)Ordered By: Dr. Toribio on 04-03-2023 TBG [Mass/Vol] 18 ug/mL . [facility] Comment on above: Age Female 1 - 11 mo 18 - 32 1 - 3 yr 19 - 34 4 - 6 yr 18 - 31 7 - 12 yr 15 - 29 13 - 18 yr 14 - 29Performed at: - [facility] [address] [id number] Director: Adelaida Martinez MD, Phone: [phone] Absolute lymphocyte countOrd ered By: Matthias Lemos on 03-10-2023 Lymphocytes Auto (Unsp spec) [#/Vol] 3.11 10*3/uL 0.83-4.51 [facility] Basophil percentageOrdered B y: Matthias Lemos on 03-10-2023 Basophil percentage 0-5 SEEN /hpf 0-5 [facility] Basophils/100 WBC (Bld) 0.5 % 0-1 [facility] Bilirubin [Mass/Vol] 0.70 mg/dL 0.20-1.00 [facility] Comment on above: For patients on eltr ombopag therapy, use of Dimension [place] TBIL is not recommended. Chloride [Moles/Vol] 108 mmol/L 98-107 [facility] Eosinophils/100 WBC (Bld) 2.0 % 0-3 [facility] Glucose [Mass/Vol] 88 mg/dL 74-106 [facility] Neutrophils (Bld) [#/Vol] 2.8 10*3/uL 2.0-7.7 [facility] Neutrophils/100 WBC (Bld) 42.9 % 34-64 [facility] Potassium [Moles/Vol] 3.4 mmol/L 3.5-5.1 [facility] Protein [Mass/Vol] 7.6 g/dL 6.4-8.2 [facility] Sodium [Moles/Vol] 143 mmol/L 136-145 [facility] WBC (Bld) [#/Vol] 6.5 10*3/uL 4.5-13.0 [facility] Bilirubin Test strip Ql (U)O rdered By: Matthias Lemos on 03-10-2023 Bilirubin Ql (U) Negative Negative [facility] Blood erythrocytes count (nu mber/volume)Ordered By: Matthias Lemos on 03-10-2023 RBC (Bld) [#/Vol] 4.45 10*6/uL 4.1-4.8 [facility] Blood hemoglobin measurement (mass/volume)Ordered By: Matthias Lemos on 03-10-2023 Hemoglobin (Bld) [Mass/Vol] 12.6 g/dL 12.0-15.0 [facility] Blood lymphocytes/100 leukoc ytesOrdered By: Matthias Lemos on 03-10-2023 Lymphocytes/100 WBC (Bld) 47.7 % 25-45 [facility] Blood monocytes/100 leukocyt esOrdered By: Matthias Lemos on 03-10-2023 Monocytes/100 WBC (Bld) 6.0 % 3-6 [facility] Blood platelet mean volumeOr dered By: Matthias Lemos on 03-10-2023 Platelet mean volume (Bld) [Entitic vol] 11.3 fL 6.2-12.0 [facility] Determination of erythrocyte mean corpuscular volume (MCV)Ordered By: Matthias Lemos on 03-10-2023 MCV (RBC) [Entitic vol] 85.2 fL 78-96 [facility] Direct bilirubinOrdered By: Matthias Lemos on 03-10-2023 Bilirubin.direct [Mass/Vol] 0.17 mg/dL 0.00-0.30 [facility] Hematocrit Auto (Bld) [Volum e fraction]Ordered By: Matthias Lemos on 03-10-2023 Hematocrit (Bld) [Volume fraction] 37.9 % 37-46 [facility] Ketones Test strip Ql (U)Ord ered By: Matthias Lemos on 03-10-2023 Ketones Ql (U) Negative Negative [facility] Laboratory - Chemistry and C hemistry - challengeOrdered By: Matthias Lemos on 03-10-2023 HCG ( test) Ql (U) Negative [facility] Comment on above: Very dilute urine sp ecimens, as indicated by a low specificgravity, may not contain personal banking representative levels of hCG. If is still suspected, a first morning urinespecimen should be collected 48 hours later and tested. ALP [Catalytic activity/Vol] 74 U/L 47-119 [facility] ALT [Catalytic activity/Vol] 17 U/L 13-56 [facility] CO2 [Moles/Vol] 27.0 mmol/L 21.0-32.0 [facility] Globulin (S) [Mass/Vol] 3.4 g/dL 2.2-4.2 [facility] Lipase [Catalytic activity/Vol] 45 U/L 13-75 [facility] Comment on above: Please note:LIPASE r evised reference range effective 23. New Lipase methodology. Expected to produce lower values than the previous assay method. NEW Reference Range: 13 - 75 U/L Urea nitrogen/Creatinine [Mass ratio] 11.5 mg/mg 10-20 [facility] Laboratory - Hematology and Cell countsOrdered By: Matthias Lemos on 03-10-2023 Erythrocyte distribution width (RBC) [Entitic vol] 45.0 fL 35.1-43.9 [facility] Erythrocyte distribution width (RBC) [Ratio] 14.4 % 11.6-14.6 [facility] Immature granulocytes/100 WBC (Bld) 0.900 % 0.0-0.9 [facility] Comment on above: IG% - Immature Granu locytes (promyelocytes, myelocytes and metamyelocytes) > 1% indicates that a LEFT SHIFT is Present. MCH (RBC) [Entitic mass] 28.3 pg 25.0-35.0 [facility] Nucleated RBC/100 WBC (Bld) [Ratio] 0 % 0-5 [facility] MCHC Auto (RBC) [Mass/Vol]Or dered By: Matthias Lemos on 03-10-2023 MCHC (RBC) [Mass/Vol] 33.2 g/dL 32-36 [facility] Mucus LM Ql (Urine sed)Order ed By: Matthias Lemos on 03-10-2023 Mucus Ql (Urine sed) 0 SEEN /hpf [facility] Nitrite Test strip Ql (U)Ord ered By: Matthias Lemos on 03-10-2023 Nitrite Ql (U) Negative Negative [facility] No Panel InformationOrdered By: Matthias Lemos on 03-10-2023 Estimated Creatinine Clearance Calc 95.28 ml/min [facility] Estimated GFR (MDRD) Amer 122 mL/min >60 [facility] Comment on above: GFR Calc Estimated GFR (MDRD) Non-Af Amer 101 mL/min >60 [facility] Comment on above: Non- GFR Calc Platelets bldOrdered By: Phillip Lemos on 03-10-2023 Platelets (Bld) [#/Vol] 228 10*3/uL 150-450 [facility] Protein Test strip Ql (U)Ord ered By: Matthias Lemos on 03-10-2023 Protein Ql (U) Negative Negative [facility] Serum or plasma albumin luc urement (mass/volume)Ordered By: Matthias Lemos on 03-10-2023 Albumin [Mass/Vol] 4.2 g/dL 3.2-5.0 [facility] Serum or plasma calcium luc urement (mass/volume)Ordered By: Matthias Lemos on 03-10-2023 Calcium [Mass/Vol] 9.4 mg/dL 8.5-10.1 [facility] Serum or plasma creatinine m easurement (mass/volume)Ordered By: Matthias Lemos on 03-10-2023 Creatinine [Mass/Vol] 0.78 mg/dL 0.55-1.02 [facility] Comment on above: The validity of the calculated GFR & GFRAA in patients over 70 years has not been determined. Clinical correlation is essential. Serum or plasma urea nitroge n measurement (mass/volume)Ordered By: Matthias Lemos on 03-10-2023 Urea nitrogen [Mass/Vol] 9 mg/dL 7-18 [facility] Squamous epithelial cells de tection in urine sediment by light microscopyOrdered By: Matthias Lemos on 03-10-2023 Epithelial cells.squamous LM Ql (Urine sed) 5-10 SEEN /hpf 5-10 [facility] Thin prep Papanicolaou smear with manual screeningOrdered By: Matthias Lemos on 03-10-2023 Thin prep Papanicolaou smear with manual screening 14 U/L 15-37 [facility] Thin prep Papanicolaou smear with manual screening 8 5-15 [facility] Urine blood detectionOrdered By: Matthias Lemos on 03-10-2023 RBC Ql (U) 10 /ul Negative [facility] RBC Ql (U) 0-5 SEEN /hpf 0-5 [facility] Urine clarityOrdered By: Phillip Lemos on 03-10-2023 Clarity (U) Clear Clear [facility] Urine color determinationOrd ered By: Matthias Lemos on 03-10-2023 Color (U) Yellow Yellow [facility] Urine glucose detectionOrder ed By: Matthias Lemos on 03-10-2023 Glucose Ql (U) Normal mg/dl Normal [facility] Urine leukocyte esterase det ection by dipstickOrdered By: Matthias Lemos on 03-10-2023 Leukocyte esterase Test strip Ql (U) Negative Negative [facility] Urine pHOrdered By: Matthias roach on 03-10-2023 pH (U) 6.0 [pH] 5.0 - 8.0 [facility] Urine sediment bacteria coun t by microscopy (number/high power field)Ordered By: Matthias Lemos on 03-10-2023 Bacteria LM.HPF (Urine sed) [#/Area] 0 /[HPF] None Seen [facility] Urine specific gravity measu rementOrdered By: Matthias Lemos on 03-10-2023 Specific gravity (U) [Rel density] 1.020 1.002-1.030 [facility] Urobilinogen Auto test strip Ql (U)Ordered By: Matthias Lemos on 03-10-2023 Urobilinogen Ql (U) Normal mg/dl Normal [facility] Absolute lymphocyte countOrd ered By: Matthias Lemos on 03-05-2023 Lymphocytes Auto (Unsp spec) [#/Vol] 2.91 10*3/uL 0.83-4.51 [facility] Basophil percentageOrdered B y: Matthias Lemos on 03-05-2023 Basophils/100 WBC (Bld) 0.5 % 0-1 [facility] Chloride [Moles/Vol] 107 mmol/L 98-107 [facility] Eosinophils/100 WBC (Bld) 1.9 % 0-3 [facility] Glucose [Mass/Vol] 85 mg/dL 74-106 [facility] Neutrophils (Bld) [#/Vol] 2.2 10*3/uL 2.0-7.7 [facility] Neutrophils/100 WBC (Bld) 39.5 % 34-64 [facility] Potassium [Moles/Vol] 3.5 mmol/L 3.5-5.1 [facility] Sodium [Moles/Vol] 137 mmol/L 136-145 [facility] WBC (Bld) [#/Vol] 5.7 10*3/uL 4.5-13.0 [facility] Beta hCG serum qualOrdered B y: Matthias eLmos on 03-05-2023 Beta HCG ( test) Ql Negative [facility] Blood erythrocytes count (nu mber/volume)Ordered By: Matthias Lemos on 03-05-2023 RBC (Bld) [#/Vol] 4.71 10*6/uL 4.1-4.8 [facility] Blood hemoglobin measurement (mass/volume)Ordered By: Matthias Lemos on 03-05-2023 Hemoglobin (Bld) [Mass/Vol] 13.0 g/dL 12.0-15.0 [facility] Blood lymphocytes/100 leukoc ytesOrdered By: Matthias Lemos on 03-05-2023 Lymphocytes/100 WBC (Bld) 51.5 % 25-45 [facility] Blood monocytes/100 leukocyt esOrdered By: Matthias Lemos on 03-05-2023 Monocytes/100 WBC (Bld) 6.4 % 3-6 [facility] Blood platelet mean volumeOr dered By: Matthias Lemos on 03-05-2023 Platelet mean volume (Bld) [Entitic vol] 11.5 fL 6.2-12.0 [facility] Determination of erythrocyte mean corpuscular volume (MCV)Ordered By: Matthias Lemos on 03-05-2023 MCV (RBC) [Entitic vol] 86.0 fL 78-96 [facility] Hematocrit Auto (Bld) [Volum e fraction]Ordered By: Matthias Lemos on 03-05-2023 Hematocrit (Bld) [Volume fraction] 40.5 % 37-46 [facility] Laboratory - Chemistry and C hemistry - challengeOrdered By: Matthias Lemos on 03-05-2023 CO2 [Moles/Vol] 26.0 mmol/L 21.0-32.0 [facility] Urea nitrogen/Creatinine [Mass ratio] 15.6 mg/mg 10-20 [facility] Laboratory - Hematology and Cell countsOrdered By: Matthias Lemos on 03-05-2023 Erythrocyte distribution width (RBC) [Entitic vol] 46.0 fL 35.1-43.9 [facility] Erythrocyte distribution width (RBC) [Ratio] 14.5 % 11.6-14.6 [facility] Immature granulocytes/100 WBC (Bld) 0.200 % 0.0-0.9 [facility] Comment on above: IG% - Immature Granu locytes (promyelocytes, myelocytes and metamyelocytes) > 1% indicates that a LEFT SHIFT is Present. MCH (RBC) [Entitic mass] 27.6 pg 25.0-35.0 [facility] Nucleated RBC/100 WBC (Bld) [Ratio] 0 % 0-5 [facility] MCHC Auto (RBC) [Mass/Vol]Or dered By: Matthias Lemos on 03-05-2023 MCHC (RBC) [Mass/Vol] 32.1 g/dL 32-36 [facility] No Panel InformationOrdered By: Matthias Lemos on 03-05-2023 Estimated Creatinine Clearance Calc 86.93 ml/min [facility] Estimated GFR (MDRD) Amer 114 mL/min >60 [facility] Comment on above: GFR Calc Estimated GFR (MDRD) Non-Af Amer 94 mL/min >60 [facility] Comment on above: Non- GFR Calc Platelets bldOrdered By: Phillip Lemos on 03-05-2023 Platelets (Bld) [#/Vol] 247 10*3/uL 150-450 [facility] Serum or plasma calcium luc urement (mass/volume)Ordered By: Matthias Lemos on 03-05-2023 Calcium [Mass/Vol] 9.2 mg/dL 8.5-10.1 [facility] Serum or plasma creatinine m easurement (mass/volume)Ordered By: Matthias Lemos on 03-05-2023 Creatinine [Mass/Vol] 0.84 mg/dL 0.55-1.02 [facility] Comment on above: The validity of the calculated GFR & GFRAA in patients over 70 years has not been determined. Clinical correlation is essential. Serum or plasma urea nitroge n measurement (mass/volume)Ordered By: Matthias Lemos on 03-05-2023 Urea nitrogen [Mass/Vol] 13 mg/dL 7-18 [facility] Thin prep Papanicolaou smear with manual screeningOrdered By: Matthias Lemos on 03-05-2023 Thin prep Papanicolaou smear with manual screening 4 5-15 [facility] STREP A MOLECULAR (POC)on Procedural Control Valid [facility] Strep A (POCT) Negative Negative [facility] Glucose Glucometer (BldC) [M ass/Vol]Ordered By: Dr. Brody on 12-26-2022 Glucose [Mass/Vol] 86 mg/dL 74-106 [facility] Comment on above: MANAGEMENT OF PATIEN T CARE PER NURSING PROTOCOL LABORATORYOrdered By: Selena Shepherd on 12-24-2022 Appearance (U) Clear (12/24/22 11:15 PM) Invalid Interpretation Code Clear AO Auto Urine SS Basophil, Absolute 0.0 103/mcL Invalid Interpretation Code 0.0 - 0.2 10^3/mcL AO Workflow SS Basophils/100 WBC (Bld) 0.4 % Invalid Interpretation Code 0.0 - 2.5 % AO Workflow SS Bilirubin Ql (U) Negative (12/24/22 11:15 PM) Invalid Interpretation Code Negative AO Auto Urine SS Color (U) Yellow (12/24/22 11:15 PM) Invalid Interpretation Code AO Auto Urine SS Eosinophil, Absolute 0.1 103/mcL Invalid Interpretation Code 0.0 - 0.4 10^3/mcL AO Workflow SS Eosinophils/100 WBC (Bld) 1.9 % Invalid Interpretation Code 0.0 - 7.0 % AO Workflow SS Erythrocyte distribution width (RBC) [Ratio] 14.9 % Invalid Interpretation Code 11.5 - 14.5 % AO Workflow SS Glucose Test strip (U) [Mass/Vol] Negative Invalid Interpretation Code Negativemg/dL AO Auto Urine SS HCG ( test) Ql Negative (12/24/22 11:15 PM) Invalid Interpretation Code AO Manual Urine SS Hematocrit (Bld) [Volume fraction] 36.1 % Invalid Interpretation Code 37.0 - 47.0 % AO Workflow SS Hemoglobin (Bld) [Mass/Vol] 12.2 G/dL Invalid Interpretation Code 12.0 - 16.0 G/dL AO Workflow SS Hemoglobin Auto test strip (U) [Mass/Vol] Negative (12/24/22 11:15 PM) Invalid Interpretation Code Negative AO Auto Urine SS Ketones Ql (U) Negative Invalid Interpretation Code Negativemg/dL AO Auto Urine SS Lymphocyte, Absolute 2.7 103/mcL Invalid Interpretation Code 0.8 - 3.9 10^3/mcL AO Workflow SS Lymphocytes/100 WBC (Bld) 44.8 % Invalid Interpretation Code 10.0 - 50.0 % AO Workflow SS MCH (RBC) [Entitic mass] 27.2 pg Invalid Interpretation Code 27.0 - 31.2 pg AO Workflow SS MCHC 33.7 G/dL Invalid Interpretation Code 33.0 - 37.0 G/dL AO Workflow SS MCV (RBC) [Entitic vol] 80.7 fL Invalid Interpretation Code 80.0 - 94.0 fL AO Workflow SS Monocyte distribution width Auto (Bld) [Entitic vol] 17.63 Invalid Interpretation Code 0.00 - 20.00 AO Workflow SS Comment on above: Result Comment: For ED adult patients suspected of sepsis, MDW<=20.0 does not rule out sepsis or risk of sepsis Monocyte, Absolute 0.5 103/mcL Invalid Interpretation Code 0.2 - 1.0 10^3/mcL AO Workflow SS Monocytes/100 WBC (Bld) 8.9 % Invalid Interpretation Code 1.7 - 13.0 % AO Workflow SS Neutrophil, Absolute 2.6 103/mcL Invalid Interpretation Code 2.9 - 6.2 10^3/mcL AO Workflow SS Neutrophils/100 WBC (Bld) 44.0 % Invalid Interpretation Code 37.0 - 80.0 % AO Workflow SS Platelet mean volume (Bld) [Entitic vol] 9.0 fL Invalid Interpretation Code 7.4 - 10.4 fL AO Workflow SS Platelets (Bld) [#/Vol] 217 103/mcL Invalid Interpretation Code 130 - 400 10^3/mcL AO Workflow SS test (u) int Not detected Invalid Interpretation Code AO Manual Urine SS RBC (Bld) [#/Vol] 4.48 106/mcL Invalid Interpretation Code 4.20 - 5.40 10^6/mcL AO Workflow SS UA Leuk Est Negative (12/24/22 11:15 PM) Invalid Interpretation Code Negative AO Auto Urine SS UA Nitrite Negative (12/24/22 11:15 PM) Invalid Interpretation Code Negative AO Auto Urine SS UA pH 6.0 (12/24/22 11:15 PM) Invalid Interpretation Code 5.0 - 8.0 AO Auto Urine SS UA Protein Negative Invalid Interpretation Code Negativemg/dL AO Auto Urine SS UA Spec Grav 1.020 (12/24/22 11:15 PM) Invalid Interpretation Code 1.015-1.025 AO Auto Urine SS UA Specimen Type Clean Catch (12/24/22 11:15 PM) Invalid Interpretation Code AO Auto Urine SS UA Urobilinogen 0.2 E.U./dL Invalid Interpretation Code 0.2-1.0E.U./dL AO Auto Urine SS WBC (Bld) [#/Vol] 6.0 103/mcL Invalid Interpretation Code 4.6 - 10.8 10^3/mcL AO Workflow SS LABORATORYOrdered By: SYSTEM SYSTEM on 12-24-2022 Calcium [Mass/Vol] 9.5 mg/dL Invalid Interpretation Code 8.4 - 10.2 mg/dL AO ADM SS Chloride [Moles/Vol] 107 mmol/L Invalid Interpretation Code 98 - 107 mmol/L AO ADM SS CO2 [Moles/Vol] 29 mmol/L Invalid Interpretation Code 22 - 29 mmol/L AO ADM SS Creatinine [Mass/Vol] 0.78 mg/dL Invalid Interpretation Code 0.55 - 1.02 mg/dL AO ADM SS Electrolyte Balance 6.0 mEq/L Invalid Interpretation Code 4.0 - 15.0 mEq/L AO ADM SS GFR 117 ml/min/1.73sqm Invalid Interpretation Code AO Chemistry S GFR Non- 96 ml/min/1.73sqm Invalid Interpretation Code AO Chemistry S Glucose [Mass/Vol] 83 mg/dL Invalid Interpretation Code 70 - 105 mg/dL AO ADM SS Potassium [Moles/Vol] 3.7 mmol/L Invalid Interpretation Code 3.5 - 5.1 mmol/L AO ADM SS Sodium [Moles/Vol] 142 mmol/L Invalid Interpretation Code 136 - 145 mmol/L AO ADM SS Troponin I.cardiac DL <= 0.01 ng/mL [Mass/Vol] ng/L Invalid Interpretation Code 0.0 - 51.4 ng/L AO ADM SS Urea nitrogen [Mass/Vol] 14 mg/dL Invalid Interpretation Code 7 - 18 mg/dL AO ADM SS Urea nitrogen/Creatinine [Mass ratio] 18 ratio Invalid Interpretation Code 7 - 27 ratio AO ADM SS Absolute lymphocyte countOrd ered By: Dr. Martini on 12-10-2022 Lymphocytes Auto (Unsp spec) [#/Vol] 1.87 10*3/uL 0.83-4.51 [facility] Basophil percentageOrdered B y: Dr. Martini on 12-10-2022 Basophils/100 WBC (Bld) 0.5 % 0-1 [facility] Bilirubin [Mass/Vol] 0.50 mg/dL 0.20-1.[address] [facility] Comment on above: For patients on eltr ombopag therapy, use of Dimension [place] TBIL is not recommended. Chloride [Moles/Vol] 105 mmol/L 98-107 [facility] Eosinophils/100 WBC (Bld) 2.3 % 0-3 [facility] Glucose [Mass/Vol] 63 mg/dL 74-106 [facility] Neutrophils (Bld) [#/Vol] 1.7 10*3/uL 2.0-7.7 [facility] Neutrophils/100 WBC (Bld) 41.5 % 34-64 [facility] Potassium [Moles/Vol] 4.2 mmol/L 3.5-5.1 [facility] Comment on above: Slight Hemolysis, Re sult may be falsely increased. Protein [Mass/Vol] 7.6 g/dL 6.4-8.2 [facility] Sodium [Moles/Vol] 140 mmol/L 136-145 [facility] WBC (Bld) [#/Vol] 4.0 10*3/uL 4.5-13.0 [facility] Blood erythrocytes count (nu mber/volume)Ordered By: Dr. Martini on 12-10-2022 RBC (Bld) [#/Vol] 4.63 10*6/uL 4.1-4.8 [facility] Blood hemoglobin measurement (mass/volume)Ordered By: Dr. Martini on 12-10-2022 Hemoglobin (Bld) [Mass/Vol] 12.5 g/dL 12.0-15.0 [facility] Blood lymphocytes/100 leukoc ytesOrdered By: Dr. Martini on 12-10-2022 Lymphocytes/100 WBC (Bld) 47.1 % 25-45 [facility] Blood monocytes/100 leukocyt esOrdered By: Dr. Martini on 12-10-2022 Monocytes/100 WBC (Bld) 8.3 % 3-6 [facility] Blood platelet mean volumeOr dered By: Dr. Martini on 12-10-2022 Platelet mean volume (Bld) [Entitic vol] 11.8 fL 6.2-12.0 [facility] Determination of erythrocyte mean corpuscular volume (MCV)Ordered By: Dr. Martini on 12-10-2022 MCV (RBC) [Entitic vol] 83.4 fL 78-96 [facility] Erythrocyte sedimentation ra teOrdered By: Dr. Martini on 12-10-2022 ESR (Bld) [Velocity] mm/h 0-30 [facility] Hematocrit Auto (Bld) [Volum e fraction]Ordered By: Dr. Martini on 12-10-2022 Hematocrit (Bld) [Volume fraction] 38.6 % 37-46 [facility] Laboratory - Chemistry and C hemistry - challengeOrdered By: Dr. Martini on 12-10-2022 ALP [Catalytic activity/Vol] 65 U/L 47-119 [facility] ALT [Catalytic activity/Vol] 17 U/L 13-56 [facility] CO2 [Moles/Vol] 26.0 mmol/L 21.0-32.0 [facility] Free T4 [Mass/Vol] 1.28 ng/dL 0.76-1.46 [facility] Globulin (S) [Mass/Vol] 3.5 g/dL 2.2-4.2 [facility] Magnesium [Mass/Vol] 2.4 mg/dL 1.6-2.6 [facility] Comment on above: Slight Hemolysis, Re sult may be falsely increased. Urea nitrogen/Creatinine [Mass ratio] 12.2 mg/mg 10-20 [facility] Laboratory - Hematology and Cell countsOrdered By: Dr. Martini on 12-10-2022 Erythrocyte distribution width (RBC) [Entitic vol] 41.6 fL 35.1-43.9 [facility] Erythrocyte distribution width (RBC) [Ratio] 13.7 % 11.6-14.6 [facility] Immature granulocytes/100 WBC (Bld) 0.300 % 0.0-0.9 [facility] Comment on above: IG% - Immature Granu locytes (promyelocytes, myelocytes and metamyelocytes) > 1% indicates that a LEFT SHIFT is Present. MCH (RBC) [Entitic mass] 27.0 pg 25.0-35.0 [facility] Nucleated RBC/100 WBC (Bld) [Ratio] 0 % 0-5 [facility] MCHC Auto (RBC) [Mass/Vol]Or dered By: Dr. Martini on 12-10-2022 MCHC (RBC) [Mass/Vol] 32.4 g/dL 32-36 [facility] No Panel InformationOrdered By: Dr. Martini on 12-10-2022 Estimated GFR (MDRD) Amer 117 mL/min >60 [facility] Comment on above: GFR Calc Estimated GFR (MDRD) Non-Af Amer 96 mL/min >60 [facility] Comment on above: Non- GFR Calc Free Triiodothyronine (T3) pg/dL 3.7 pg/mL 2.18-3.98 [facility] Thyroglobulin Antibody < 1.0 IU/mL 0.0-0.9 [facility] Comment on above: Thyroglobulin Antibo dy measured by [employer]ibr[employer] Commercial TechnologiesMethodologyPerformed at: [facility] [address] [id number] Director: Bart Long PhD, Phone: [phone] Thyroid Stimulating Hormone (TSH) 2.17 uIU/mL 0.358-3.74 [facility] Platelets bldOrdered By: Dr. Martini on 12-10-2022 Platelets (Bld) [#/Vol] 240 10*3/uL 150-450 [facility] Serum or plasma C reactive p rotein measurement (mass/volume)Ordered By: Dr. Martini on 12-10-2022 CRP [Mass/Vol] mg/L 0.0-3.0 [facility] [facility] Comment on above: C-Reactive Protein ( CRP) provides useful information for thediagnosis, therapy and monitoring of inflammatory processesand associated diseases. For the evaluation of Relative Riskfor Cardiovascular Disease, a High Sensitivity CRP (HSCRP)should be ordered. Serum or plasma albumin luc urement (mass/volume)Ordered By: Dr. Martini on 12-10-2022 Albumin [Mass/Vol] 4.1 g/dL 3.2-5.0 [facility] Serum or plasma albumin/glob ulin mass ratioOrdered By: Dr. Martini on 12-10-2022 Albumin/Globulin [Mass ratio] 1.2 {ratio} 0.9-2.4 [facility] Serum or plasma calcium luc urement (mass/volume)Ordered By: Dr. Martini on 12-10-2022 Calcium [Mass/Vol] 9.4 mg/dL 8.5-10.1 [facility] Serum or plasma creatinine m easurement (mass/volume)Ordered By: Dr. Martini on 12-10-2022 Creatinine [Mass/Vol] 0.82 mg/dL 0.55-1.02 [facility] Comment on above: The validity of the calculated GFR & GFRAA in patients over 70 years has not been determined. Clinical correlation is essential. Serum or plasma thyroperoxid ase antibody assay (units/volume)Ordered By: Dr. Martini on 12-10-2022 TPO Ab Qn 10 [IU]/mL 0-26 [facility] Serum or plasma urea nitroge n measurement (mass/volume)Ordered By: Dr. Martini on 12-10-2022 Urea nitrogen [Mass/Vol] 10 mg/dL 7-18 [facility] Thin prep Papanicolaou smear with manual screeningOrdered By: Dr. Martini on 12-10-2022 Thin prep Papanicolaou smear with manual screening 14 U/L 15-37 [facility] Comment on above: Slight Hemolysis, Re sult may be falsely increased. Thin prep Papanicolaou smear with manual screening 9 5-15 [facility] COVID-19/INFLUENZA A,B MOLEC ULARon 12-07-2022 SARS-CoV-2 (COVID-19) Ab IA Ql SARS-COV-2 (SHEYLA): Not Detected INFLUENZA A (SHEYLA): Not Detected INFLUENZA B (SHEYLA): Not Detected Normal Not Detected [facility] Comment on above: Order Comment: This test was performed under the FDA's Emergency Use Authorization (EUA). Testing was performed using the John Zafar SARS-CoV-2 RT-PCR AND Influenza A/B Nucleic Acid Test on the Zafar Sheyla System. This test has not been approved for use in asymptomatic patients and its performance in this patient population has not been evaluated. Negative results do not rule out the presence of SARS-CoV-2, influenza A, and/or influenza B. Fact sheets for the EUA can be found at the following links: For Healthcare Providers: https://www.fda.gov/media/524872/download For Patients: https://www.fda.gov/media/786967/download Performed By: #### L [id number] #### [facility] [address] [place] [address] Manuelito Fraga M.D. [id number] XR CHEST PA/APon 12-07-2022 XR CHEST PA/AP EXAMINATION: XR CHEST PA/AP 12/07/2022 1:38 am HISTORY: ORDERING SYSTEM PROVIDED HISTORY: cough, sore throat., TECHNOLOGIST PROVIDED HISTORY: Illness/Other Reason for exam: cough sore throat Cancer History: u Surgery, RadiationHistory: u Encounter Type: Initial Additional signs and symptoms: ORDERING SYSTEM PROVIDED DIAGNOSIS CODES: FINDINGS: Cardiomediastinal silhouette is within normal limits. Imaged lung cuevas show no evidence for acute consolidation, infiltrate, pneumothorax or pleural effusions. The diaphragmatic and osseous structures are intact with no evidence for an acute osseous abnormality. IMPRESSION: No acute cardiopulmonary process. Workstation ID: [id number] Dictated by: RADHA SOSA V. on Sat Dec 07, 2022 3:03:52 AM EST Transcribed by: RADHA SOSA V. on Sat Dec 07, 2022 3:03:52 AM EST Finalized by: RADHA SOSA V. on Sat Dec 07, 2022 3:03:52 AM EST Normal [facility] Comment on above: Order Comment: Injur y/Trauma or Illness?:Illness/Other How long have you had these symptoms (acute/chronic)?:Acute Reason for exam?:cough sore throat History of cancer?:u Surgeries, chemotherapy, or radiation?:u Type of Exam?:Initial Additional signs and symptoms?: Serum or plasma choriogonado tropin detectionOrdered By: Gi Wade on 11-15-2022 HCG ( test) Ql < 1 mIU/mL <4 [facility] Comment on above: hCG levels with Gest ational AgeGestational Age hCG mIU/mL (IU/L)0.2 - 1 week 5 - 501-2 weeks 50 - 5002-3 weeks 100 - 66216-7 weeks 500 - 085443-2 weeks 1000 - 195443-6 weeks 94991 - 100,0006-8 weeks 10006 - 200,0002-3 months 78288 - 100,000 Serum or plasma choriogonado tropin detectionOrdered By: Gi Wade on 11-06-2022 HCG ( test) Ql 4 mIU/mL <4 [facility] Comment on above: hCG levels with Gest ational AgeGestational Age hCG mIU/mL (IU/L)0.2 - 1 week 5 - 501-2 weeks 50 - 5002-3 weeks 100 - 70824-8 weeks 500 - 717708-6 weeks 1000 - 688680-1 weeks 33205 - 100,0006-8 weeks 21083 - 200,0002-3 months 19384 - 100,000 Culture, urineOrdered By: Dr Fiona Leach on 11-05-2022 Bacteria identified Cx Nom (U) Positive [facility] Basophil percentageOrdered B y: Dr. Leach on 11-03-2022 Basophil percentage 10-25 SEEN /hpf 0-5 [facility] Bilirubin Test strip Ql (U)O rdered By: Dr. Leach on 11-03-2022 Bilirubin Ql (U) Negative Negative [facility] Ketones Test strip Ql (U)Ord ered By: Dr. Leach on 11-03-2022 Ketones Ql (U) Negative Negative [facility] Laboratory - Chemistry and C hemistry - challengeOrdered By: Dr. Leach on 11-03-2022 HCG ( test) Ql (U) Negative [facility] Comment on above: TEST is *P OSITIVE* Mucus LM Ql (Urine sed)Order ed By: Dr. Leach on 11-03-2022 Mucus Ql (Urine sed) 0 SEEN /hpf [facility] Nitrite Test strip Ql (U)Ord ered By: Dr. Leach on 11-03-2022 Nitrite Ql (U) Negative Negative [facility] Protein Test strip Ql (U)Ord ered By: Dr. Leach on 11-03-2022 Protein Ql (U) 30 mg/dl Negative [facility] Serum or plasma choriogonado tropin detectionOrdered By: Dr. Leach on 11-03-2022 HCG ( test) Ql 29 mIU/mL <4 [facility] Comment on above: hCG levels with Gest ational AgeGestational Age hCG mIU/mL (IU/L)0.2 - 1 week 5 - 501-2 weeks 50 - 5002-3 weeks 100 - 46996-7 weeks 500 - 624989-0 weeks 1000 - 263559-0 weeks 01227 - 100,0006-8 weeks 16537 - 200,0002-3 months 15140 - 100,000 Squamous epithelial cells de tection in urine sediment by light microscopyOrdered By: Dr. Leach on 11-03-2022 Epithelial cells.squamous LM Ql (Urine sed) 5-10 SEEN /hpf 5-10 [facility] Urine blood detectionOrdered By: Dr. Leach on 11-03-2022 RBC Ql (U) 250 /ul Negative [facility] RBC Ql (U) 50-100 SEEN /hpf 0-5 [facility] Urine clarityOrdered By: Dr. Leach on 11-03-2022 Clarity (U) Sl. Cloudy Clear [facility] Urine color determinationOrd ered By: Dr. Leach on 11-03-2022 Color (U) Yellow Yellow [facility] Urine glucose detectionOrder ed By: Dr. Leach on 11-03-2022 Glucose Ql (U) Normal mg/dl Normal [facility] Urine leukocyte esterase det ection by dipstickOrdered By: Dr. Leach on 11-03-2022 Leukocyte esterase Test strip Ql (U) 100 /ul Negative [facility] Urine pHOrdered By: Dr. Leach o n 11-03-2022 pH (U) 6.5 [pH] 5.0 - 8.0 [facility] Urine sediment bacteria coun t by microscopy (number/high power field)Ordered By: Dr. Leach on 11-03-2022 Bacteria LM.HPF (Urine sed) [#/Area] 1 /[HPF] None Seen [facility] Urine specific gravity measu rementOrdered By: Dr. Leach on 11-03-2022 Specific gravity (U) [Rel density] 1.020 1.002-1.030 [facility] Urobilinogen Auto test strip Ql (U)Ordered By: Dr. Leach on 11-03-2022 Urobilinogen Ql (U) Normal mg/dl Normal [facility] Absolute lymphocyte countOrd ered By: Dr. Young on 10-14-2022 Lymphocytes Auto (Unsp spec) [#/Vol] 2.84 10*3/uL 0.83-4.51 [facility] Basophil percentageOrdered B y: Dr. Young on 10-14-2022 Basophil percentage 0-5 SEEN /hpf 0-5 [facility] Basophils/100 WBC (Bld) 0.2 % 0-1 [facility] Bilirubin [Mass/Vol] 0.70 mg/dL 0.20-1.00 [facility] Comment on above: For patients on eltr ombopag therapy, use of Dimension [place] TBIL is not recommended. Chloride [Moles/Vol] 110 mmol/L 98-107 [facility] Eosinophils/100 WBC (Bld) 0.9 % 0-3 [facility] Glucose [Mass/Vol] 92 mg/dL 74-106 [facility] Neutrophils (Bld) [#/Vol] 5.0 10*3/uL 2.0-7.7 [facility] Neutrophils/100 WBC (Bld) 57.9 % 34-64 [facility] Potassium [Moles/Vol] 3.2 mmol/L 3.5-5.1 [facility] Protein [Mass/Vol] 7.9 g/dL 6.4-8.2 [facility] Sodium [Moles/Vol] 139 mmol/L 136-145 [facility] WBC (Bld) [#/Vol] 8.6 10*3/uL 4.5-13.0 [facility] Beta hCG serum qualOrdered B y: Dr. Young on 10-14-2022 Beta HCG ( test) Ql Negative [facility] Bilirubin Test strip Ql (U)O rdered By: Dr. Young on 10-14-2022 Bilirubin Ql (U) Negative Negative [facility] Blood erythrocytes count (nu mber/volume)Ordered By: Dr. Young on 10-14-2022 RBC (Bld) [#/Vol] 5.13 10*6/uL 4.1-4.8 [facility] Blood hemoglobin measurement (mass/volume)Ordered By: Dr. Young on 10-14-2022 Hemoglobin (Bld) [Mass/Vol] 13.6 g/dL 12.0-15.0 [facility] Blood lymphocytes/100 leukoc ytesOrdered By: Dr. Young on 10-14-2022 Lymphocytes/100 WBC (Bld) 32.9 % 25-45 [facility] Blood monocytes/100 leukocyt esOrdered By: Dr. Young on 10-14-2022 Monocytes/100 WBC (Bld) 7.9 % 3-6 [facility] Blood platelet morphology de termination (nominal result)Ordered By: Dr. Young on 10-14-2022 Platelet morphology finding Nom (Bld) CLUMPED [facility] Determination of erythrocyte mean corpuscular volume (MCV)Ordered By: Dr. Young on 10-14-2022 MCV (RBC) [Entitic vol] 83.6 fL 78-96 [facility] Glucose Glucometer (BldC) [M ass/Vol]Ordered By: Dr. Young on 10-14-2022 Glucose [Mass/Vol] 62 mg/dL 74-106 [facility] Comment on above: MANAGEMENT OF PATIEN T CARE PER NURSING PROTOCOL Hematocrit Auto (Bld) [Volum e fraction]Ordered By: Dr. Young on 10-14-2022 Hematocrit (Bld) [Volume fraction] 42.9 % 37-46 [facility] Ketones Test strip Ql (U)Ord ered By: Dr. Young on 10-14-2022 Ketones Ql (U) Negative Negative [facility] LABORATORYOrdered By: Chema Petit on 10-14-2022 Albumin BCP dye [Mass/Vol] 4.2 G/dL Invalid Interpretation Code 3.5 - 5.0 G/dL AO ADM SS Albumin/Globulin [Mass ratio] 1.4 {ratio} Invalid Interpretation Code 1.1 - 2.5 ratio AO ADM SS ALP [Catalytic activity/Vol] 84 U/L Invalid Interpretation Code 40 - 135 U/L AO ADM SS ALT With P-5'-P [Catalytic activity/Vol] 14 U/L Invalid Interpretation Code 14 - 59 U/L AO ADM SS AST With P-5'-P [Catalytic activity/Vol] 16 U/L Invalid Interpretation Code 10 - 40 U/L AO ADM SS Bilirubin [Mass/Vol] 1.7 mg/dL Invalid Interpretation Code 0.2 - 1.0 mg/dL AO ADM SS Calcium [Mass/Vol] 9.3 mg/dL Invalid Interpretation Code 8.4 - 10.2 mg/dL AO ADM SS Chloride [Moles/Vol] 105 mmol/L Invalid Interpretation Code 98 - 107 mmol/L AO ADM SS CO2 [Moles/Vol] 24 mmol/L Invalid Interpretation Code 22 - 29 mmol/L AO ADM SS Creatinine [Mass/Vol] 0.82 mg/dL Invalid Interpretation Code 0.55 - 1.02 mg/dL AO ADM SS Electrolyte Balance 10.0 mEq/L Invalid Interpretation Code 4.0 - 15.0 mEq/L AO ADM SS Globulin 3.1 G/dL Invalid Interpretation Code AO ADM SS Glucose [Mass/Vol] 82 mg/dL Invalid Interpretation Code 70 - 105 mg/dL AO ADM SS Lipase [Catalytic activity/Vol] 30 U/L Invalid Interpretation Code 16 - 77 U/L AO ADM SS Potassium [Moles/Vol] 4.3 mmol/L Invalid Interpretation Code 3.5 - 5.1 mmol/L AO ADM SS Protein [Mass/Vol] 7.3 G/dL Invalid Interpretation Code 6.4 - 8.2 G/dL AO ADM SS Sodium [Moles/Vol] 139 mmol/L Invalid Interpretation Code 136 - 145 mmol/L AO ADM SS Urea nitrogen [Mass/Vol] 9 mg/dL Invalid Interpretation Code 7 - 18 mg/dL AO ADM SS Urea nitrogen/Creatinine [Mass ratio] 11 ratio Invalid Interpretation Code 7 - 27 ratio AO ADM SS LABORATORYOrdered By: Caitlin Olivier on 10-14-2022 Appearance (U) Slightly Cloudy *ABN* (10/14/22 12:37 PM) Invalid Interpretation Code Clear AO Auto Urine SS Bacteria LM.HPF (Urine sed) [#/Area] 2 /[HPF] Invalid Interpretation Code AO Auto Urine SS Basophil, Absolute 0.0 103/mcL Invalid Interpretation Code 0.0 - 0.2 10^3/mcL AO Workflow SS Basophils/100 WBC (Bld) 0.2 % Invalid Interpretation Code 0.0 - 2.5 % AO Workflow SS Bilirubin Ql (U) Negative (10/14/22 12:37 PM) Invalid Interpretation Code Negative AO Auto Urine SS Color (U) Yellow (10/14/22 12:37 PM) Invalid Interpretation Code AO Auto Urine SS Eosinophil, Absolute 0.0 103/mcL Invalid Interpretation Code 0.0 - 0.4 10^3/mcL AO Workflow SS Eosinophils/100 WBC (Bld) 0.8 % Invalid Interpretation Code 0.0 - 7.0 % AO Workflow SS Erythrocyte distribution width (RBC) [Ratio] 16.3 % Invalid Interpretation Code 11.5 - 14.5 % AO Workflow SS Glucose Test strip (U) [Mass/Vol] Negative Invalid Interpretation Code Negativemg/dL AO Auto Urine SS HCG ( test) Ql Negative (10/14/22 12:37 PM) Invalid Interpretation Code AO Manual Urine SS Hematocrit (Bld) [Volume fraction] 40.3 % Invalid Interpretation Code 37.0 - 47.0 % AO Workflow SS Hemoglobin (Bld) [Mass/Vol] 13.3 G/dL Invalid Interpretation Code 12.0 - 16.0 G/dL AO Workflow SS Hemoglobin Auto test strip (U) [Mass/Vol] Negative (10/14/22 12:37 PM) Invalid Interpretation Code Negative AO Auto Urine SS Ketones Ql (U) 40 mg/dL Invalid Interpretation Code Negativemg/dL AO Auto Urine SS Lymphocyte, Absolute 0.7 103/mcL Invalid Interpretation Code 0.8 - 3.9 10^3/mcL AO Workflow SS Lymphocytes/100 WBC (Bld) 12.3 % Invalid Interpretation Code 10.0 - 50.0 % AO Workflow SS MCH (RBC) [Entitic mass] 26.7 pg Invalid Interpretation Code 27.0 - 31.2 pg AO Workflow SS MCHC 33.0 G/dL Invalid Interpretation Code 33.0 - 37.0 G/dL AO Workflow SS MCV (RBC) [Entitic vol] 81.0 fL Invalid Interpretation Code 80.0 - 94.0 fL AO Workflow SS Monocyte distribution width Auto (Bld) [Entitic vol] 20.38 Invalid Interpretation Code 0.00 - 20.00 AO Workflow SS Comment on above: Result Comment: For adults in ED, MDW>20.0 may be associated with a higher risk of sepsis during the first 12hrs of hospital admission Monocyte, Absolute 0.5 103/mcL Invalid Interpretation Code 0.2 - 1.0 10^3/mcL AO Workflow SS Monocytes/100 WBC (Bld) 8.7 % Invalid Interpretation Code 1.7 - 13.0 % AO Workflow SS Neutrophil, Absolute 4.2 103/mcL Invalid Interpretation Code 2.9 - 6.2 10^3/mcL AO Workflow SS Neutrophils/100 WBC (Bld) 78.0 % Invalid Interpretation Code 37.0 - 80.0 % AO Workflow SS Platelet mean volume (Bld) [Entitic vol] 9.1 fL Invalid Interpretation Code 7.4 - 10.4 fL AO Workflow SS Platelets (Bld) [#/Vol] 183 103/mcL Invalid Interpretation Code 130 - 400 10^3/mcL AO Workflow SS test (u) int Not detected Invalid Interpretation Code AO Manual Urine SS RBC (Bld) [#/Vol] 4.97 106/mcL Invalid Interpretation Code 4.20 - 5.40 10^6/mcL AO Workflow SS UA Leuk Est Small *ABN* (10/14/22 12:37 PM) Invalid Interpretation Code Negative AO Auto Urine SS UA Nitrite Negative (10/14/22 12:37 PM) Invalid Interpretation Code Negative AO Auto Urine SS UA pH 7.0 (10/14/22 12:37 PM) Invalid Interpretation Code 5.0 - 8.0 AO Auto Urine SS UA Protein Negative Invalid Interpretation Code Negativemg/dL AO Auto Urine SS UA RBC 0-5 /HPF Invalid Interpretation Code None Seen/HPF AO Auto Urine SS UA Spec Grav 1.025 (10/14/22 12:37 PM) Invalid Interpretation Code 1.015-1.025 AO Auto Urine SS UA Specimen Type Not Given (10/14/22 12:37 PM) Invalid Interpretation Code AO Auto Urine SS UA Squam Epithelial 10-15 /HPF Invalid Interpretation Code None Seen/HPF AO Auto Urine SS UA Urobilinogen 0.2 E.U./dL Invalid Interpretation Code 0.2-1.0E.U./dL AO Auto Urine SS WBC (Bld) [#/Vol] 5.4 103/mcL Invalid Interpretation Code 4.6 - 10.8 10^3/mcL AO Workflow SS WBC LM.HPF (Urine sed) [#/Area] 15-25 /HPF Invalid Interpretation Code None Seen/HPF AO Auto Urine SS LABORATORYOrdered By: SYSTEM SYSTEM on 10-14-2022 GFR 110 ml/min/1.73sqm Invalid Interpretation Code AO Chemistry S GFR Non- 91 ml/min/1.73sqm Invalid Interpretation Code AO Chemistry S Laboratory - Chemistry and C hemistry - challengeOrdered By: Dr. Young on 10-14-2022 ALP [Catalytic activity/Vol] 72 U/L 47-119 [facility] ALT [Catalytic activity/Vol] 15 U/L 13-56 [facility] CO2 [Moles/Vol] 23.0 mmol/L 21.0-32.0 [facility] Globulin (S) [Mass/Vol] 3.5 g/dL 2.2-4.2 [facility] Lipase [Catalytic activity/Vol] 135 U/L 73-393 [facility] Urea nitrogen/Creatinine [Mass ratio] 11.8 mg/mg 10-20 [facility] Laboratory - Hematology and Cell countsOrdered By: Dr. Young on 10-14-2022 Erythrocyte distribution width (RBC) [Entitic vol] 45.1 fL 35.1-43.9 [facility] Erythrocyte distribution width (RBC) [Ratio] 14.7 % 11.6-14.6 [facility] Immature granulocytes/100 WBC (Bld) 0.200 % 0.0-0.9 [facility] Comment on above: IG% - Immature Granu locytes (promyelocytes, myelocytes and metamyelocytes) > 1% indicates that a LEFT SHIFT is Present. MCH (RBC) [Entitic mass] 26.5 pg 25.0-35.0 [facility] Nucleated RBC/100 WBC (Bld) [Ratio] 0 % 0-5 [facility] MCHC Auto (RBC) [Mass/Vol]Or dered By: Dr. Young on 10-14-2022 MCHC (RBC) [Mass/Vol] 31.7 g/dL 32-36 [facility] Mucus LM Ql (Urine sed)Order ed By: Dr. Young on 10-14-2022 Mucus Ql (Urine sed) 0 SEEN /hpf [facility] Nitrite Test strip Ql (U)Ord ered By: Dr. Young on 10-14-2022 Nitrite Ql (U) Negative Negative [facility] No Panel InformationOrdered By: Dr. Young on 10-14-2022 Estimated Creatinine Clearance Calc 90.48 ml/min [facility] Estimated GFR (MDRD) Amer 112 mL/min >60 [facility] Comment on above: GFR Calc Estimated GFR (MDRD) Non-Af Amer 93 mL/min >60 [facility] Comment on above: Non- GFR Calc Platelets bldOrdered By: Dr. Young on 10-14-2022 Platelets (Bld) [#/Vol] 117 10*3/uL 150-450 [facility] Protein Test strip Ql (U)Ord ered By: Dr. Young on 10-14-2022 Protein Ql (U) Negative Negative [facility] Serum or plasma albumin luc urement (mass/volume)Ordered By: Dr. Young on 10-14-2022 Albumin [Mass/Vol] 4.4 g/dL 3.2-5.0 [facility] Serum or plasma albumin/glob ulin mass ratioOrdered By: Dr. Young on 10-14-2022 Albumin/Globulin [Mass ratio] 1.3 {ratio} 0.9-2.4 [facility] Serum or plasma calcium luc urement (mass/volume)Ordered By: Dr. Young on 10-14-2022 Calcium [Mass/Vol] 9.9 mg/dL 8.5-10.1 [facility] Serum or plasma creatinine m easurement (mass/volume)Ordered By: Dr. Young on 10-14-2022 Creatinine [Mass/Vol] 0.85 mg/dL 0.55-1.02 [facility] Comment on above: The validity of the calculated GFR & GFRAA in patients over 70 years has not been determined. Clinical correlation is essential. Serum or plasma urea nitroge n measurement (mass/volume)Ordered By: Dr. Young on 10-14-2022 Urea nitrogen [Mass/Vol] 10 mg/dL 7-18 [facility] Squamous epithelial cells de tection in urine sediment by light microscopyOrdered By: Dr. Young on 10-14-2022 Epithelial cells.squamous LM Ql (Urine sed) 0-5 SEEN /hpf 5-10 [facility] Thin prep Papanicolaou smear with manual screeningOrdered By: Dr. Young on 10-14-2022 Thin prep Papanicolaou smear with manual screening 14 U/L 15-37 [facility] Thin prep Papanicolaou smear with manual screening 6 5-15 [facility] Urine blood detectionOrdered By: Dr. Young on 10-14-2022 RBC Ql (U) Negative Negative [facility] RBC Ql (U) 0 SEEN /hpf 0-5 [facility] Urine clarityOrdered By: Dr. Young on 10-14-2022 Clarity (U) Clear Clear [facility] Urine color determinationOrd ered By: Dr. Young on 10-14-2022 Color (U) Yellow Yellow [facility] Urine glucose detectionOrder ed By: Dr. Young on 10-14-2022 Glucose Ql (U) Normal mg/dl Normal [facility] Urine leukocyte esterase det ection by dipstickOrdered By: Dr. Young on 10-14-2022 Leukocyte esterase Test strip Ql (U) 25 /ul Negative [facility] Urine pHOrdered By: Dr. Roderick mendoza on 10-14-2022 pH (U) 8.0 [pH] 5.0 - 8.0 [facility] Urine sediment bacteria coun t by microscopy (number/high power field)Ordered By: Dr. Young on 10-14-2022 Bacteria LM.HPF (Urine sed) [#/Area] RARE /hpf None Seen [facility] Urine specific gravity measu rementOrdered By: Dr. Young on 10-14-2022 Specific gravity (U) [Rel density] 1.015 1.002-1.030 [facility] Urobilinogen Auto test strip Ql (U)Ordered By: Dr. Young on 10-14-2022 Urobilinogen Ql (U) Normal mg/dl Normal [facility] STREP A MOLECULAR (POC)on Procedural Control Valid [facility] Strep A (POCT) Negative Negative [facility] XR CHEST 2V FRONTAL/LATon [facility] XR Chest PA and Lateralon IMPRESSION: No acute radiographic abnormality. 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 Transcribe Date/Time: Sep 10 2022 11:06A Dictated by : BARBIE NUNO MD This examination was interpreted and the report reviewed and electronically signed by: BARBIE NUNO MD on Sep 10 2022 11:07AM [facility] DIVISION OF RADIOLOGY * * *Final Report* * * DATE OF EXAM: Sep 10 2022 11:05AM WOX [id number] - XR CHEST 2V FRONTAL/LAT / PROCEDURE REASON: Acute cough * * * * Physician Interpretation * * * * EXAMINATION: CHEST RADIOGRAPH (2 VIEW FRONTAL & LATERAL) CLINICAL HISTORY: Acute cough MQ: XC2_6 EXAM DATE/TIME: 09/10/2022 11:05 AM COMPARISON: 09/22/2015 RESULT: Lines, tubes, and devices: None. Lungs and pleura: No consolidation. No pleural effusion. No pneumothorax. Cardiomediastinal silhouette: Normal cardiomediastinal silhouette. Bones and soft tissues: Unremarkable. DIVISION OF RADIOLOGY Provider, [facility] - 09/10/2022 * * *Final Report* * * DATE OF EXAM: Sep 10 2022 11:05AM WOX [id number] - XR CHEST 2V FRONTAL/LAT / PROCEDURE REASON: Acute cough * * * * Physician Interpretation * * * * EXAMINATION: CHEST RADIOGRAPH (2 VIEW FRONTAL & LATERAL) CLINICAL HISTORY: Acute cough MQ: XC2_6 EXAM DATE/TIME: 09/10/2022 11:05 AM COMPARISON: 09/22/2015 RESULT: Lines, tubes, and devices: None. Lungs and pleura: No consolidation. No pleural effusion. No pneumothorax. Cardiomediastinal silhouette: Normal cardiomediastinal silhouette. Bones and soft tissues: Unremarkable. IMPRESSION IMPRESSION: No acute radiographic abnormality. Engineering Job Titles: PSCStephany Transcribe Date/Time: Sep 10 2022 11:06A Dictated by : BARBIE NUNO MD This examination was interpreted and the report reviewed and electronically signed by: BARBIE NUNO MD on Sep 10 2022 11:07AM EST [facility] Radiology Study observation (narrative) [facility] XR Chest PA and LateralOrder ed By: [facility] Provider on 09-10-2022 [facility] Anaerobic cultureOrdered By: Dr. Conte on 08-21-2022 Bacteria identified Anaer cx Nom (Unsp spec) No anaerobic bacteria isolated. [facility] Bacteria identified Cx Nom ( Wound)Ordered By: Dr. Conte on 08-20-2022 Wound Culture Meth. resistant Stap h. aureus [facility] Vancomycin troughOrdered By: Dr. Ruiz on 08-20-2022 Vancomycin trough [Mass/Vol] 7.0 ug/mL 5.0-15.0 [facility] Comment on above: VANCOMYCIN STANDARED DRUG THERAPY TROUGH LEVEL: 5.0 - 15.0 mg/L VANCOMYCIN HIGH INTENSITY THERAPY TROUGH LEVEL: 15.0 - 20.0 mg/L High Intensity therapy recommended for serious lifethreatening infections include:- Pcqlfqvjxk-Pjiukignqzdi-Dwnpdolgl (Ventilator/Healtcare Associated)-Sepsis PLEASE CONTACT PHARMACY SERVICES (#[id number]) FOR INTERPRETATIONOF RESULTS. Basophil percentageOrdered B y: Dr. Valero on 08-19-2022 WBC (Bld) [#/Vol] 12.5 10*3/uL 4.5-13.0 [facility] Blood erythrocytes count (nu mber/volume)Ordered By: Dr. Valero on 08-19-2022 RBC (Bld) [#/Vol] 4.05 10*6/uL 4.1-4.8 [facility] Blood hemoglobin measurement (mass/volume)Ordered By: Dr. Valero on 08-19-2022 Hemoglobin (Bld) [Mass/Vol] 10.9 g/dL 12.0-15.0 [facility] Blood platelet mean volumeOr dered By: Dr. Valero on 08-19-2022 Platelet mean volume (Bld) [Entitic vol] 10.5 fL 6.2-12.0 [facility] Determination of erythrocyte mean corpuscular volume (MCV)Ordered By: Dr. Valero on 08-19-2022 MCV (RBC) [Entitic vol] 84.7 fL 78-96 [facility] Gram stain for investigation of transfusion reactionOrdered By: Dr. Conte on 08-19-2022 Microscopic observation Gram stain Nom (Unsp spec) [facility] Hematocrit Auto (Bld) [Volum e fraction]Ordered By: Dr. Valero on 08-19-2022 Hematocrit (Bld) [Volume fraction] 34.3 % 37-46 [facility] Laboratory - Hematology and Cell countsOrdered By: Dr. Valero on 08-19-2022 Erythrocyte distribution width (RBC) [Entitic vol] 41.9 fL 35.1-43.9 [facility] Erythrocyte distribution width (RBC) [Ratio] 13.4 % 11.6-14.6 [facility] MCH (RBC) [Entitic mass] 26.9 pg 25.0-35.0 [facility] MCHC Auto (RBC) [Mass/Vol]Or dered By: Dr. Valero on 08-19-2022 MCHC (RBC) [Mass/Vol] 31.8 g/dL 32-36 [facility] Platelets bldOrdered By: Dr. Valero on 08-19-2022 Platelets (Bld) [#/Vol] 441 10*3/uL 150-450 [facility] Absolute lymphocyte countOrd ered By: Dr. Wiggins on 08-18-2022 Lymphocytes Auto (Unsp spec) [#/Vol] 1.66 10*3/uL 0.83-4.51 [facility] Basophil percentageOrdered B y: Dr. Wiggins on 08-18-2022 Basophils/100 WBC (Bld) 0.1 % 0-1 [facility] Chloride [Moles/Vol] 104 mmol/L 98-107 [facility] Eosinophils/100 WBC (Bld) 0.3 % 0-3 [facility] Glucose [Mass/Vol] 97 mg/dL 74-106 [facility] Neutrophils (Bld) [#/Vol] 13.0 10*3/uL 2.0-7.7 [facility] Neutrophils/100 WBC (Bld) 82.8 % 34-64 [facility] Potassium [Moles/Vol] 4.0 mmol/L 3.5-5.1 [facility] Sodium [Moles/Vol] 137 mmol/L 136-145 [facility] Basophil percentageon 2021 WBC (Bld) [#/Vol] 15.7 10*3/uL 4.5-13.0 [facility] Work Phone: Beta hCG serum qualOrdered B y: Dr. Vela on 08-18-2022 Beta HCG ( test) Ql Negative [facility] Blood erythrocytes count (nu mber/volume)on 08-18-2022 RBC (Bld) [#/Vol] 4.10 10*6/uL 4.1-4.8 [facility] Work Phone: Blood hemoglobin measurement (mass/volume)on 08-18-2022 Hemoglobin (Bld) [Mass/Vol] 11.4 g/dL 12.0-15.0 [facility] Work Phone: Blood lymphocytes/100 leukoc ytesOrdered By: Dr. Wiggins on 08-18-2022 Lymphocytes/100 WBC (Bld) 10.6 % 25-45 [facility] Blood monocytes/100 leukocyt esOrdered By: Dr. Wiggins on 08-18-2022 Monocytes/100 WBC (Bld) 5.7 % 3-6 [facility] Blood platelet mean volumeon 08-18-2022 Platelet mean volume (Bld) [Entitic vol] 10.5 fL 6.2-12.0 [facility] Work Phone: Determination of erythrocyte mean corpuscular volume (MCV)on 08-18-2022 MCV (RBC) [Entitic vol] 84.6 fL 78-96 [facility] Work Phone: Hematocrit Auto (Bld) [Volum e fraction]on 08-18-2022 Hematocrit (Bld) [Volume fraction] 34.7 % 37-46 [facility] Work Phone: Laboratory - Chemistry and C hemistry - challengeOrdered By: Dr. Wiggins on 08-18-2022 CO2 [Moles/Vol] 25.0 mmol/L 21.0-32.0 [facility] Urea nitrogen/Creatinine [Mass ratio] 17.9 mg/mg 10-20 [facility] Laboratory - Hematology and Cell countson 08-18-2022 Erythrocyte distribution width (RBC) [Entitic vol] 41.8 fL 35.1-43.9 [facility] Work Phone: Erythrocyte distribution width (RBC) [Ratio] 13.5 % 11.6-14.6 [facility] Work Phone: MCH (RBC) [Entitic mass] 27.8 pg 25.0-35.0 [facility] Work Phone: Laboratory - Hematology and Cell countsOrdered By: Dr. Wiggins on 08-18-2022 Immature granulocytes/100 WBC (Bld) 0.500 % 0.0-0.9 [facility] Comment on above: IG% - Immature Granu locytes (promyelocytes, myelocytes and metamyelocytes) > 1% indicates that a LEFT SHIFT is Present. Nucleated RBC/100 WBC (Bld) [Ratio] 0 % 0-5 [facility] MCHC Auto (RBC) [Mass/Vol]on 08-18-2022 MCHC (RBC) [Mass/Vol] 32.9 g/dL 32-36 [facility] Work Phone: No Panel InformationOrdered By: Dr. Wiggins on 08-18-2022 Estimated Creatinine Clearance Calc 100.51 ml/min [facility] Estimated GFR (MDRD) Amer 123 mL/min >60 [facility] Comment on above: GFR Calc Estimated GFR (MDRD) Non-Af Amer 102 mL/min >60 [facility] Comment on above: Non- GFR Calc Platelets bldon 08-18-2022 Platelets (Bld) [#/Vol] 386 10*3/uL 150-450 [facility] Work Phone: Serum or plasma calcium luc urement (mass/volume)Ordered By: Dr. Wiggins on 08-18-2022 Calcium [Mass/Vol] 9.7 mg/dL 8.5-10.1 [facility] Serum or plasma creatinine m easurement (mass/volume)Ordered By: Dr. Wiggins on 08-18-2022 Creatinine [Mass/Vol] 0.78 mg/dL 0.55-1.02 [facility] Comment on above: The validity of the calculated GFR & GFRAA in patients over 70 years has not been determined. Clinical correlation is essential. Serum or plasma urea nitroge n measurement (mass/volume)Ordered By: Dr. Wiggins on 08-18-2022 Urea nitrogen [Mass/Vol] 14 mg/dL 7-18 [facility] Thin prep Papanicolaou smear with manual screeningOrdered By: Dr. Wiggins on 08-18-2022 Thin prep Papanicolaou smear with manual screening 8 5-15 [facility] Basophil percentageon 2021 WBC (Bld) [#/Vol] 15.1 10*3/uL 4.5-13.0 [facility] Work Phone: Blood erythrocytes count (nu mber/volume)on 06-15-2022 RBC (Bld) [#/Vol] 3.30 10*6/uL 4.1-4.8 [facility] Work Phone: [phone] Blood hemoglobin measurement (mass/volume)on 06-15-2022 Hemoglobin (Bld) [Mass/Vol] 10.0 g/dL 12.0-15.0 [facility] Work Phone: Blood platelet mean volumeon 06-15-2022 Platelet mean volume (Bld) [Entitic vol] 12.1 fL 6.2-12.0 [facility] Work Phone: Determination of erythrocyte mean corpuscular volume (MCV)on 06-15-2022 MCV (RBC) [Entitic vol] 89.1 fL 78-96 [facility] Work Phone: [phone] Hematocrit Auto (Bld) [Volum e fraction]on 06-15-2022 Hematocrit (Bld) [Volume fraction] 29.4 % 37-46 [facility] Work Phone: [phone] Laboratory - Hematology and Cell countson 06-15-2022 Erythrocyte distribution width (RBC) [Entitic vol] 39.3 fL 35.1-43.9 [facility] Work Phone: Erythrocyte distribution width (RBC) [Ratio] 12.1 % 11.6-14.6 [facility] Work Phone: MCH (RBC) [Entitic mass] 30.3 pg 25.0-35.0 [facility] Work Phone: MCHC Auto (RBC) [Mass/Vol]on 06-15-2022 MCHC (RBC) [Mass/Vol] 34.0 g/dL 32-36 [facility] Work Phone: [phone] Platelets bldon 06-15-2022 Platelets (Bld) [#/Vol] 216 10*3/uL 150-450 [facility] Work Phone: [phone] Absolute lymphocyte counton 06-14-2022 Lymphocytes Auto (Unsp spec) [#/Vol] 2.41 10*3/uL 0.83-4.51 [facility] Work Phone: Basophil percentageon 2021 Basophils/100 WBC (Bld) 0.3 % 0-1 [facility] Work Phone: Eosinophils/100 WBC (Bld) 1.3 % 0-3 [facility] Work Phone: Neutrophils (Bld) [#/Vol] 3.8 10*3/uL 2.0-7.7 [facility] Work Phone: Neutrophils/100 WBC (Bld) 54.2 % 34-64 [facility] Work Phone: Bilirubin Test strip Ql (U)o n 06-14-2022 Bilirubin Ql (U) Negative Negative [facility] Work Phone: Blood lymphocytes/100 leukoc yteson 06-14-2022 Lymphocytes/100 WBC (Bld) 34.1 % 25-45 [facility] Work Phone: Blood monocytes/100 leukocyt eson 06-14-2022 Monocytes/100 WBC (Bld) 9.5 % 3-6 [facility] Work Phone: Ketones Test strip Ql (U)on 06-14-2022 Ketones Ql (U) Negative Negative [facility] Work Phone: Laboratory - Hematology and Cell countson 06-14-2022 Immature granulocytes/100 WBC (Bld) 0.600 % 0.0-0.9 [facility] Work Phone: Comment on above: IG% - Immature Granu locytes (promyelocytes, myelocytes and metamyelocytes) > 1% indicates that a LEFT SHIFT is Present. Nucleated RBC/100 WBC (Bld) [Ratio] 0 % 0-5 [facility] Work Phone: Nitrite Test strip Ql (U)on 06-14-2022 Nitrite Ql (U) Negative Negative [facility] Work Phone: No Panel Informationon 06-14 Miscellaneous Test See comment [facility] Work Phone: Comment on above: TEST RESULT LIMITSTo xo gondii PCR, Amniotic Negative Negative No Toxoplasma gondii DNA detectedThis test was developed and its performance characteristicsdetermined by [facility] [facility]. It has not been cleared or approvedby the U.S. Food and Drug Administration. The FDA has determined that such clearance or approval is not necessary. This test is used for clinical purposes. It should not be regarded as investigational or for research. __ TESTING PERFORMED AT [facility]. ORIGINAL REPORT ON FILE IN LAB CONTAINS ADDITIONAL TEST SITE INFORMATION. TESTING PERFORMED AT []. ORIGINAL REPORT ON FILE IN LAB CONTAINS ADDITIONAL TEST SITE INFORMATION. Toxoplasma Comment Comment . [facility] Work Phone: Comment on above: It is presumed the p atient has not been infected with andis not undergoing an acute infection with Toxoplasma. Ifsymptoms persist, submit a new specimen after three weeks.Performed at: [address] [id number] Director: Bart Long PhD, Phone: [phone] Vaginal Amniotic Fluid Detection Positive Negative [facility] Work Phone: Comment on above: Amniotic fluid prese nt indicates rupture of Membranes. RESULTS CALLED TO JULIA GARZA 06/14/22 Deanna Spann.REPORT READ BACK BY SAME . Protein Test strip Ql (U)on 06-14-2022 Protein Ql (U) Negative Negative [facility] Work Phone: Serum Toxoplasma gondii IgG antibody assay (units/volume)on 06-14-2022 T. gondii IgG Qn (S) < 3.0 IU/mL 0.0-7.1 [facility] Work Phone: Comment on above: Negative <7.2 Equivo anish 7.2 - 8.7 Positive >8.7Performed at: [address] [id number] Director: Bart Long PhD, Phone: [phone] Serum Toxoplasma gondii IgM antibody assay by immunoassay (units/volume)on 06-14-2022 T. gondii IgM IA Qn (S) < 3.0 AU/mL 0.0-7.9 [facility] Work Phone: Comment on above: Negative <8.0 Equivo anish 8.0 - 9.9 Positive >9.9 Urine blood detectionon RBC Ql (U) Negative Negative [facility] Work Phone: Urine clarityon 06-14-2022 Clarity (U) Sl. Cloudy Clear [facility] Work Phone: Urine color determinationon 06-14-2022 Color (U) Yellow Yellow [facility] Work Phone: Urine glucose detectionon Glucose Ql (U) Normal mg/dl Normal [facility] Work Phone: Urine leukocyte esterase det ection by dipstickon 06-14-2022 Leukocyte esterase Test strip Ql (U) Negative Negative [facility] Work Phone: Urine pHon 06-14-2022 pH (U) 7.0 [pH] 5.0 - 8.0 [facility] Work Phone: Urine specific gravity measu rementon 06-14-2022 Specific gravity (U) [Rel density] 1.010 1.002-1.030 [facility] Work Phone: Urobilinogen Auto test strip Ql (U)on 06-14-2022 Urobilinogen Ql (U) Normal mg/dl Normal [facility] Work Phone: Laboratory - Chemistry and C hemistry - challengeon 06-12-2022 Glucose Ql (U) Negative [facility] Work Phone: Laboratory - Urinalysison Protein Ql (U) Negative [facility] Work Phone: No Panel Informationon 06-12 Miscellaneous Test See comment [facility] Work Phone: Comment on above: TEST RESULT LIMITSAl lergen Profile, MoldClass Description: Levels of Specific IgE Class Description of Class ----- < 0.10 0 Negative 0.10 - 0.31 0/I Equivocal/Low 0.32 - 0.55 I Low 0.56 - 1.40 II Moderate 1.41 - 3.90 III High 3.91 - 19.00 IV Very High19.01 - 100.00 V Very High >100.00 Very [id number] Penicillium chrysogen <0.10 kU/L Class [id number] Cladosporium herbarum <0.10 kU/L Class [id number] Aspergillus fumigatus <0.10 kU/L Class [id number] Mucor racemosus <0.10 kU/L Class [id number] Cherelle albicans <0.10 kU/L Class [id number] Alternaria alternata <0.10 kU/L Class [id number] Setomelanomma rostrat <0.10 kU/L Class [id number] Fusarium proliferatum <0.10 kU/L Class [id number] Aureobasidi pullulans <0.10 kU/L Class [id number] Phoma betae <0.10 kU/L Class [id number] Epicoccum purpur <0.10 kU/L Class [id number] Stemphylium herbarum <0.10 kU/L Class 0 TESTING PERFORMED AT [facility]. ORIGINAL REPORT ON FILE IN LAB CONTAINS ADDITIONAL TEST SITE INFORMATION. Absolute lymphocyte counton 06-06-2022 Lymphocytes Auto (Unsp spec) [#/Vol] 1.40 10*3/uL 0.83-4.51 [facility] Work Phone: Basophil percentageon 2021 Basophils/100 WBC (Bld) 0.5 % 0-1 [facility] Work Phone: Eosinophils/100 WBC (Bld) 2.0 % 0-3 [facility] Work Phone: Neutrophils (Bld) [#/Vol] 4.4 10*3/uL 2.0-7.7 [facility] Work Phone: Neutrophils/100 WBC (Bld) 68.4 % 34-64 [facility] Work Phone: WBC (Bld) [#/Vol] 6.5 10*3/uL 4.5-13.0 [facility] Work Phone: Blood erythrocytes count (nu mber/volume)on 06-06-2022 RBC (Bld) [#/Vol] 3.68 10*6/uL 4.1-4.8 [facility] Work Phone: Blood hemoglobin measurement (mass/volume)on 06-06-2022 Hemoglobin (Bld) [Mass/Vol] 11.1 g/dL 12.0-15.0 [facility] Work Phone: Blood lymphocytes/100 leukoc yteson 06-06-2022 Lymphocytes/100 WBC (Bld) 21.7 % 25-45 [facility] Work Phone: Blood monocytes/100 leukocyt eson 06-06-2022 Monocytes/100 WBC (Bld) 6.8 % 3-6 [facility] Work Phone: Blood platelet mean volumeon 06-06-2022 Platelet mean volume (Bld) [Entitic vol] 11.8 fL 6.2-12.0 [facility] Work Phone: Determination of erythrocyte mean corpuscular volume (MCV)on 06-06-2022 MCV (RBC) [Entitic vol] 88.3 fL 78-96 [facility] Work Phone: Gestational diabetes screen 1-hour screen with 50g oral glucose loadon 06-06-2022 Glucose 1 Hr post 50 g glucose PO [Mass/Vol] 77 mg/dL 70-140 [facility] Work Phone: Hematocrit Auto (Bld) [Volum e fraction]on 06-06-2022 Hematocrit (Bld) [Volume fraction] 32.5 % 37-46 [facility] Work Phone: Laboratory - Chemistry and C hemistry - challengeon 06-06-2022 Glucose Ql (U) Negative [facility] Work Phone: Laboratory - Hematology and Cell countson 06-06-2022 Erythrocyte distribution width (RBC) [Entitic vol] 39.3 fL 35.1-43.9 [facility] Work Phone: Erythrocyte distribution width (RBC) [Ratio] 12.1 % 11.6-14.6 [facility] Work Phone: Immature granulocytes/100 WBC (Bld) 0.600 % 0.0-0.9 [facility] Work Phone: Comment on above: IG% - Immature Granu locytes (promyelocytes, myelocytes and metamyelocytes) > 1% indicates that a LEFT SHIFT is Present. MCH (RBC) [Entitic mass] 30.2 pg 25.0-35.0 [facility] Work Phone: Nucleated RBC/100 WBC (Bld) [Ratio] 0 % 0-5 [facility] Work Phone: Laboratory - Urinalysison Protein Ql (U) Negative [facility] Work Phone: MCHC Auto (RBC) [Mass/Vol]on 06-06-2022 MCHC (RBC) [Mass/Vol] 34.2 g/dL 32-36 [facility] Work Phone: Platelets bldon 06-06-2022 Platelets (Bld) [#/Vol] 191 10*3/uL 150-450 [facility] Work Phone: Amorphous sediment detection in urine sediment by light microscopyon 04-23-2022 Amorphous sediment LM Ql (Urine sed) 1+ [facility] Work Phone: Basophil percentageon 2021 C. trachomatis DNA ROWENA+probe Ql (Unsp spec) Negative Negative [facility] Work Phone: Basophil percentage 10-25 SEEN /hpf 0-5 [facility] Work Phone: Bilirubin Test strip Ql (U)o n 04-23-2022 Bilirubin Ql (U) Negative Negative [facility] Work Phone: fibronectinon 04-23-20 22 Fibronectin. (Vag fld) [Mass/Vol] Negative [facility] Work Phone: Ketones Test strip Ql (U)on 04-23-2022 Ketones Ql (U) 15 mg/dl Negative [facility] Work Phone: Laboratory - Drug toxicology on 04-23-2022 Amphetamines Ql (U) Negative <1000 ng/mL [facility] Work Phone: [phone] Benzodiazepines Ql (U) Negative < 200 ng/mL [facility] Work Phone: [phone] Cannabinoids Screen Ql (U) Negative < 50 ng/mL [facility] Work Phone: [phone] Cocaine Ql (U) Negative < 300 ng/mL [facility] Work Phone: [phone] Opiates Ql (U) Negative < 300 ng/mL [facility] Work Phone: Mucus LM Ql (Urine sed)on Mucus Ql (Urine sed) 0 SEEN /hpf [facility] Work Phone: Neisseria gonorrhoeae detect ion by PCRon 04-23-2022 N. gonorrhoeae DNA ROWENA+probe Ql (Cervical mucus) Negative Negative [facility] Work Phone: Nitrite Test strip Ql (U)on 04-23-2022 Nitrite Ql (U) Negative Negative [facility] Work Phone: No Panel Informationon 04-23 MDMA (Ecstasy) Screen Negative < 500 ng/mL [facility] Work Phone: Specimen Comment (Misc) Not Reportable [facility] Work Phone: Urine Barbiturates Screen Negative < 200 ng/mL [facility] Work Phone: Urine Drug Screen Comment [facility] Work Phone: Comment on above: CONFIRMATORY TESTING FOR ALL POSITIVE URINE DRUG SCREENRESULTS WILL ONLY BE SENT OUT UPON PHYSICIAN ORDER. [facility] Urine Drug Screen methods provide only preliminaryanalytical test results. A more specific alternate chemicalmethod must be used in order to obtain a confirmedanalytical result. Gas chromatography/mass spectrometery(GC/MS) is the preferred confirmatory method. Clinicalconsideration and professional judgement should be appliedto any drug of abuse test result, particularly whenpreliminary positive results are used. URINE TCA TESTING MUST BE ORDERED SEPARATELY. USE TESTMNEMONIC: [facility] Urine Methadone Screen Negative < 300 ng/mL [facility] Work Phone: Vaginal Amniotic Fluid Detection Negative Negative [facility] Work Phone: Comment on above: Amniotic fluid not p resent indicates No Rupture of FetalMembranes at time of specimen collection. Protein Test strip Ql (U)on 04-23-2022 Protein Ql (U) Negative Negative [facility] Work Phone: Squamous epithelial cells de tection in urine sediment by light microscopyon 04-23-2022 Epithelial cells.squamous LM Ql (Urine sed) 0-5 SEEN /hpf 5-10 [facility] Work Phone: Thin prep Papanicolaou smear with manual screeningon 04-23-2022 Thin prep Papanicolaou smear with manual screening Negative Negative [facility] Work Phone: Urine blood detectionon 04-10 RBC Ql (U) Negative Negative [facility] Work Phone: RBC Ql (U) 0 SEEN /hpf 0-5 [facility] Work Phone: Urine clarityon 04-23-2022 Clarity (U) Sl. Cloudy Clear [facility] Work Phone: Urine color determinationon 04-23-2022 Color (U) Yellow Yellow [facility] Work Phone: Urine glucose detectionon Glucose Ql (U) Normal mg/dl Normal [facility] Work Phone: Urine leukocyte esterase det ection by dipstickon 04-23-2022 Leukocyte esterase Test strip Ql (U) 500 /ul Negative [facility] Work Phone: Urine pHon 04-23-2022 pH (U) 7.0 [pH] 5.0 - 8.0 [facility] Work Phone: Urine phencyclidine (PCP) de tectionon 04-23-2022 Phencyclidine Ql (U) Negative < 25 ng/mL [facility] Work Phone: Urine sediment bacteria coun t by microscopy (number/high power field)on 04-23-2022 Bacteria LM.HPF (Urine sed) [#/Area] 2 /[HPF] None Seen [facility] Work Phone: Urine specific gravity measu rementon 04-23-2022 Specific gravity (U) [Rel density] 1.010 1.002-1.030 [facility] Work Phone: Urobilinogen Auto test strip Ql (U)on 04-23-2022 Urobilinogen Ql (U) Normal mg/dl Normal [facility] Work Phone: Laboratory - Chemistry and C hemistry - challengeon 04-22-2022 Glucose Ql (U) Negative [facility] Work Phone: Laboratory - Urinalysison Protein Ql (U) Negative [facility] Work Phone: [phone] Laboratory - Chemistry and C hemistry - challengeon 04-09-2022 Glucose Ql (U) Negative [facility] Work Phone: Laboratory - Urinalysison Protein Ql (U) Negative [facility] Work Phone: Absolute lymphocyte counton 04-05-2022 Lymphocytes Auto (Unsp spec) [#/Vol] 1.74 10*3/uL 0.83-4.51 [facility] Work Phone: Basophil percentageon 2021 Basophils/100 WBC (Bld) 0.2 % 0-1 [facility] Work Phone: [phone] Eosinophils/100 WBC (Bld) 0.5 % 0-3 [facility] Work Phone: [phone] Neutrophils (Bld) [#/Vol] 6.3 10*3/uL 2.0-7.7 [facility] Work Phone: Neutrophils/100 WBC (Bld) 73.3 % 34-64 [facility] Work Phone: [phone] WBC (Bld) [#/Vol] 8.6 10*3/uL 4.5-13.0 [facility] Work Phone: [phone] Basophil percentage 0-5 SEEN /hpf 0-5 [facility] Work Phone: [phone] Bilirubin Test strip Ql (U)o n 04-05-2022 Bilirubin Ql (U) Negative Negative [facility] Work Phone: [phone] Blood erythrocytes count (nu mber/volume)on 04-05-2022 RBC (Bld) [#/Vol] 3.56 10*6/uL 4.1-4.8 [facility] Work Phone: [phone] Blood hemoglobin measurement (mass/volume)on 04-05-2022 Hemoglobin (Bld) [Mass/Vol] 11.0 g/dL 12.0-15.0 [facility] Work Phone: Blood lymphocytes/100 leukoc yteson 04-05-2022 Lymphocytes/100 WBC (Bld) 20.3 % 25-45 [facility] Work Phone: Blood monocytes/100 leukocyt eson 04-05-2022 Monocytes/100 WBC (Bld) 5.3 % 3-6 [facility] Work Phone: Blood platelet mean volumeon 04-05-2022 Platelet mean volume (Bld) [Entitic vol] 11.1 fL 6.2-12.0 [facility] Work Phone: Culture, urineon 04-05-2022 Bacteria identified Cx Nom (U) Culture exhibits no growth. [facility] Work Phone: Determination of erythrocyte mean corpuscular volume (MCV)on 04-05-2022 MCV (RBC) [Entitic vol] 91.0 fL 78-96 [facility] Work Phone: Hematocrit Auto (Bld) [Volum e fraction]on 04-05-2022 Hematocrit (Bld) [Volume fraction] 32.4 % 37-46 [facility] Work Phone: Ketones Test strip Ql (U)on 04-05-2022 Ketones Ql (U) Negative Negative [facility] Work Phone: Laboratory - Hematology and Cell countson 04-05-2022 Erythrocyte distribution width (RBC) [Entitic vol] 41.8 fL 35.1-43.9 [facility] Work Phone: Erythrocyte distribution width (RBC) [Ratio] 12.6 % 11.6-14.6 [facility] Work Phone: Immature granulocytes/100 WBC (Bld) 0.400 % 0.0-0.9 [facility] Work Phone: Comment on above: IG% - Immature Granu locytes (promyelocytes, myelocytes and metamyelocytes) > 1% indicates that a LEFT SHIFT is Present. MCH (RBC) [Entitic mass] 30.9 pg 25.0-35.0 [facility] Work Phone: Nucleated RBC/100 WBC (Bld) [Ratio] 0 % 0-5 [facility] Work Phone: MCHC Auto (RBC) [Mass/Vol]on 04-05-2022 MCHC (RBC) [Mass/Vol] 34.0 g/dL 32-36 [facility] Work Phone: Mucus LM Ql (Urine sed)on Mucus Ql (Urine sed) 0 SEEN /hpf [facility] Work Phone: Nitrite Test strip Ql (U)on 04-05-2022 Nitrite Ql (U) Negative Negative [facility] Work Phone: No Panel Informationon 04-05 Fibrinogen 328 mg/dl 203-444 [facility] Work Phone: Platelets bldon 04-05-2022 Platelets (Bld) [#/Vol] 180 10*3/uL 150-450 [facility] Work Phone: Protein Test strip Ql (U)on 04-05-2022 Protein Ql (U) Negative Negative [facility] Work Phone: Squamous epithelial cells de tection in urine sediment by light microscopyon 04-05-2022 Epithelial cells.squamous LM Ql (Urine sed) 0-5 SEEN /hpf 5-10 [facility] Work Phone: Urine blood detectionon 03-11 RBC Ql (U) Negative Negative [facility] Work Phone: RBC Ql (U) 0 SEEN /hpf 0-5 [facility] Work Phone: Urine clarityon 04-05-2022 Clarity (U) Clear Clear [facility] Work Phone: Urine color determinationon 04-05-2022 Color (U) Straw Yellow [facility] Work Phone: Urine glucose detectionon Glucose Ql (U) Normal mg/dl Normal [facility] Work Phone: Urine leukocyte esterase det ection by dipstickon 04-05-2022 Leukocyte esterase Test strip Ql (U) Negative Negative [facility] Work Phone: Urine pHon 04-05-2022 pH (U) 7.0 [pH] 5.0 - 8.0 [facility] Work Phone: Urine sediment bacteria coun t by microscopy (number/high power field)on 04-05-2022 Bacteria LM.HPF (Urine sed) [#/Area] 1 /[HPF] None Seen [facility] Work Phone: Urine specific gravity measu rementon 04-05-2022 Specific gravity (U) [Rel density] 1.010 1.002-1.030 [facility] Work Phone: Urobilinogen Auto test strip Ql (U)on 04-05-2022 Urobilinogen Ql (U) Normal mg/dl Normal [facility] Work Phone: Laboratory - Chemistry and C hemistry - challengeon 02-25-2022 Glucose Ql (U) Negative [facility] Work Phone: Laboratory - Urinalysison Protein Ql (U) Negative [facility] Work Phone: Culture, urineon 01-28-2022 Bacteria identified Cx Nom (U) Lactobacillus sp. [facility] Work Phone: Laboratory - Chemistry and C hemistry - challengeon 01-28-2022 Glucose Ql (U) Negative [facility] Work Phone: Laboratory - Drug toxicology on 01-28-2022 Amphetamines Ql (U) Negative [facility] Work Phone: Benzodiazepines Ql (U) Negative [facility] Work Phone: Cannabinoids Screen Ql (U) Negative [facility] Work Phone: Cocaine Ql (U) Negative [facility] Work Phone: Opiates Ql (U) Negative [facility] Work Phone: Laboratory - Urinalysison Protein Ql (U) Negative [facility] Work Phone: No Panel Informationon 01-28 MDMA (Ecstasy) Screen Negative [facility] Work Phone: Urine Barbiturates Screen Negative [facility] Work Phone: Urine Drug Screen Comment [facility] Work Phone: Comment on above: CONFIRMATORY TESTING FOR ALL POSITIVE URINE DRUG SCREENRESULTS WILL ONLY BE SENT OUT UPON PHYSICIAN ORDER. [facility]IST[facility] Urine Drug Screen methods provide only preliminaryanalytical test results. A more specific alternate chemicalmethod must be used in order to obtain a confirmedanalytical result. Gas chromatography/mass spectrometery(GC/MS) is the preferred confirmatory method. Clinicalconsideration and professional judgement should be appliedto any drug of abuse test result, particularly whenpreliminary positive results are used. URINE TCA TESTING MUST BE ORDERED SEPARATELY. USE TESTMNEMONIC: [facility] Urine Methadone Screen Negative [facility] Work Phone: Urine phencyclidine (PCP) de tectionon 01-28-2022 Phencyclidine Ql (U) Negative [facility] Work Phone: Absolute lymphocyte counton 01-01-2022 Lymphocytes Auto (Unsp spec) [#/Vol] 2.31 10*3/uL 0.83-4.51 [facility] Work Phone: Basophil percentageon 2021 Basophils/100 WBC (Bld) 0.3 % 0-1 [facility] Work Phone: Eosinophils/100 WBC (Bld) 0.5 % 0-3 [facility] Work Phone: Neutrophils (Bld) [#/Vol] 5.6 10*3/uL 2.0-7.7 [facility] Work Phone: Neutrophils/100 WBC (Bld) 65.3 % 34-64 [facility] Work Phone: WBC (Bld) [#/Vol] 8.6 10*3/uL 4.5-13.0 [facility] Work Phone: Blood erythrocytes count (nu mber/volume)on 01-01-2022 RBC (Bld) [#/Vol] 4.12 10*6/uL 4.1-4.8 [facility] Work Phone: Blood hemoglobin measurement (mass/volume)on 01-01-2022 Hemoglobin (Bld) [Mass/Vol] 12.4 g/dL 12.0-15.0 [facility] Work Phone: Blood lymphocytes/100 leukoc yteson 01-01-2022 Lymphocytes/100 WBC (Bld) 26.9 % 25-45 [facility] Work Phone: Blood monocytes/100 leukocyt eson 01-01-2022 Monocytes/100 WBC (Bld) 6.5 % 3-6 [facility] Work Phone: Blood platelet mean volumeon 01-01-2022 Platelet mean volume (Bld) [Entitic vol] 10.9 fL 6.2-12.0 [facility] Work Phone: Determination of erythrocyte mean corpuscular volume (MCV)on 01-01-2022 MCV (RBC) [Entitic vol] 87.9 fL 78-96 [facility] Work Phone: HIV 1 and HIV-2 antibody ass ay with HIV-1 p24 antigen detectionon 01-01-2022 HIV 1+2 Ab+HIV1 p24 Ag IA Ql Non-Reactive Nonreactive [facility] Work Phone: Hematocrit Auto (Bld) [Volum e fraction]on 01-01-2022 Hematocrit (Bld) [Volume fraction] 36.2 % 37-46 [facility] Work Phone: Laboratory - Hematology and Cell countson 01-01-2022 Erythrocyte distribution width (RBC) [Entitic vol] 40.3 fL 35.1-43.9 [facility] Work Phone: Erythrocyte distribution width (RBC) [Ratio] 12.5 % 11.6-14.6 [facility] Work Phone: Immature granulocytes/100 WBC (Bld) 0.500 % 0.0-0.9 [facility] Work Phone: Comment on above: IG% - Immature Granu locytes (promyelocytes, myelocytes and metamyelocytes) > 1% indicates that a LEFT SHIFT is Present. MCH (RBC) [Entitic mass] 30.1 pg 25.0-35.0 [facility] Work Phone: Nucleated RBC/100 WBC (Bld) [Ratio] 0 % 0-5 [facility] Work Phone: MCHC Auto (RBC) [Mass/Vol]on 01-01-2022 MCHC (RBC) [Mass/Vol] 34.3 g/dL 32-36 [facility] Work Phone: No Panel Informationon 01-01 Hepatitis B Surface Antigen Non-Reactive Nonreactive [facility] Work Phone: Hepatitis C Antibody Non-Reactive Nonreactive [facility] Work Phone: Comment on above: Non Reactive: < 0.8 Equivocal: >/= 0.8 to < 1.0 Reactive: >/= 1.0The CDC recommends that a reactive/equivocal HCV antibody result be followed up by the HCV Nucleic Acid Amplificationtest (002797) Rubella IgG Antibody Reactive Nonreactive [facility] Work Phone: Comment on above: Antibody Results Int erpretation of Immune Status Non Reactive Presumed Non-Immune Equivocal Equivocal Reactive Presumed Immune Platelets bldon 01-01-2022 Platelets (Bld) [#/Vol] 231 10*3/uL 150-450 [facility] Work Phone: Serum Treponema species anti body detectionon 01-01-2022 Treponema sp Ab Ql (S) Non-Reactive [facility] Work Phone: Serum or plasma choriogonado tropin detectionon 12-14-2021 HCG ( test) Ql 6957 mIU/mL <4 [facility] Work Phone: Comment on above: hCG levels with Gest ational AgeGestational Age hCG mIU/mL (IU/L)0.2 - 1 week 5 - 501-2 weeks 50 - 5002-3 weeks 100 - 88701-9 weeks 500 - 467128-5 weeks 1000 - 927177-8 weeks 34473 - 100,0006-8 weeks 11490 - 200,0002-3 months 42359 - 100,000 Serum or plasma choriogonado tropin detectionon 12-12-2021 HCG ( test) Ql 3846 mIU/mL <4 [facility] Work Phone: Comment on above: hCG levels with Gest ational AgeGestational Age hCG mIU/mL (IU/L)0.2 - 1 week 5 - 501-2 weeks 50 - 5002-3 weeks 100 - 84042-1 weeks 500 - 809348-9 weeks 1000 - 883236-9 weeks 03794 - 100,0006-8 weeks 72955 - 200,0002-3 months 41041 - 100,000 Laboratory - Microbiology an d Antimicrobial susceptibilityon 11-30-2021 SARS-CoV-2 (COVID-19) RNA ROWENA+probe Ql (Unsp spec) Not detected Not Detect [facility] Work Phone: Comment on above: Normal Reference Ran ge: Not DetectedMethod:(RT-PCR) real-time reverse transcriptase PCRLuminex DANNI Instrument*The Food and Drug Administration (FDA) has issued an Emergency Use Authorization (EAU) for the DANNI SARS-CoV-2 Assay for the rapid detection of the virus that causes COVID-19. This test has been validated, but the FDAs independent review of this validation is pending.*Negative results do not preclude infection and should not be used as the sole basis for treatment or patient management. Optimum specimen types and timing for peak viral levels during infections caused by SARS-CoV-2 have not been determined. Collection of multiple specimens from the same patient may be necessary to detect the virus. The possibility of a false negative result should be considered if the patient has clinical presentation or has had recent exposure. No Panel Informationon 10-20 Adrenocorticotropic Hormone 20.8 pg/mL [facility] Work Phone: Comment on above: ACTH reference inter mauricio for samples collected between 7 and10 AM.Performed at: [facility] [place] [address] [place], [place] [id number] Director: Adelaida Martinez MD, Phone: [phone] at: [facility] [address] [id number] Director: Bart Long PhD, Phone: [phone] Serum or plasma cortisol jacob surement (mass/volume)on 10-20-2021 Cortisol [Mass/Vol] 13.50 ug/dL 3.44-22.45 [facility] Work Phone: Comment on above: Adult (AM) 5.27 - 22 .45 ug/dL Adult (PM) 3.44 - 16.76 ug/dLPlease note revised CORTISOL reference range effective 2020. Thin prep Papanicolaou smear with manual screeningon 10-20-2021 Thin prep Papanicolaou smear with manual screening 11.7 ng/dL [facility] Work Phone: LABORATORYOrdered By: Sam Orta on 09-18-2021 Albumin BCP dye [Mass/Vol] 4.2 G/dL Invalid Interpretation Code 3.5 - 5.0 G/dL AO ADM SS Albumin/Globulin [Mass ratio] 1.6 {ratio} Invalid Interpretation Code 1.1 - 2.5 ratio AO ADM SS ALP [Catalytic activity/Vol] 71 U/L Invalid Interpretation Code 135 - 450 U/L AO ADM SS ALT With P-5'-P [Catalytic activity/Vol] 15 U/L Invalid Interpretation Code 14 - 59 U/L AO ADM SS AST With P-5'-P [Catalytic activity/Vol] 13 U/L Invalid Interpretation Code 10 - 40 U/L AO ADM SS Basophil, Absolute 0.00 103/mcL Invalid Interpretation Code 0.00 - 0.19 10^3/mcL AO Auto Heme SS Basophils/100 WBC (Bld) 0.5 % Invalid Interpretation Code 0.0 - 2.5 % AO Auto Heme SS Bili Indirect 0.5 mg/dL Invalid Interpretation Code AO Chemistry S Bilirubin [Mass/Vol] 0.6 mg/dL Invalid Interpretation Code 0.2 - 1.0 mg/dL AO ADM SS Bilirubin.direct [Mass/Vol] 0.1 mg/dL Invalid Interpretation Code 0.0 - 0.2 mg/dL AO ADM SS Calcium [Mass/Vol] 9.0 mg/dL Invalid Interpretation Code 8.4 - 10.2 mg/dL AO ADM SS Chloride [Moles/Vol] 105 mmol/L Invalid Interpretation Code 98 - 107 mmol/L AO ADM SS CO2 [Moles/Vol] 25 mmol/L Invalid Interpretation Code 22 - 29 mmol/L AO ADM SS Creatinine [Mass/Vol] 0.77 mg/dL Invalid Interpretation Code 0.55 - 1.02 mg/dL AO ADM SS Electrolyte Balance 10.0 mEq/L Invalid Interpretation Code AO ADM SS Eosinophil, Absolute 0.10 103/mcL Invalid Interpretation Code 0.00 - 0.40 10^3/mcL AO Auto Heme SS Eosinophils/100 WBC (Bld) 1.9 % Invalid Interpretation Code 0.0 - 7.0 % AO Auto Heme SS Erythrocyte distribution width (RBC) [Ratio] 12.7 % Invalid Interpretation Code 11.5 - 14.5 % AO Auto Heme SS Globulin 2.6 G/dL Invalid Interpretation Code AO ADM SS Glucose [Mass/Vol] 115 mg/dL Invalid Interpretation Code 70 - 105 mg/dL AO ADM SS HCG ( test) Ql (U) Negative (09/18/21 1:22 PM) Invalid Interpretation Code AO Rapid Testing SS Hematocrit (Bld) [Volume fraction] 36.1 % Invalid Interpretation Code 37.0 - 47.0 % AO Auto Heme SS Hemoglobin (Bld) [Mass/Vol] 12.8 G/dL Invalid Interpretation Code 12.0 - 16.0 G/dL AO Auto Heme SS Lipase [Catalytic activity/Vol] 100 U/L Invalid Interpretation Code 73 - 393 U/L AO ADM SS Lymphocyte, Absolute 2.00 103/mcL Invalid Interpretation Code 0.77 - 3.85 10^3/mcL AO Auto Heme SS Lymphocytes/100 WBC (Bld) 29.8 % Invalid Interpretation Code 10.0 - 50.0 % AO Auto Heme SS MCH (RBC) [Entitic mass] 31.0 pg Invalid Interpretation Code 27.0 - 31.2 pg AO Auto Heme SS MCHC (RBC) [Mass/Vol] 35.4 G/dL Invalid Interpretation Code 33.0 - 37.0 G/dL AO Auto Heme SS MCV (RBC) [Entitic vol] 87.5 fL Invalid Interpretation Code 80.0 - 94.0 fL AO Auto Heme SS Monocyte, Absolute 0.40 103/mcL Invalid Interpretation Code 0.15 - 1.00 10^3/mcL AO Auto Heme SS Monocytes/100 WBC (Bld) 6.1 % Invalid Interpretation Code 1.7 - 13.0 % AO Auto Heme SS Neutrophil, Absolute 4.10 103/mcL Invalid Interpretation Code 2.85 - 6.16 10^3/mcL AO Auto Heme SS Neutrophils/100 WBC (Bld) 61.7 % Invalid Interpretation Code 37.0 - 80.0 % AO Auto Heme SS Platelet mean volume (Bld) [Entitic vol] 9.2 fL Invalid Interpretation Code 7.4 - 10.4 fL AO Auto Heme SS Platelets (Bld) [#/Vol] 198 103/mcL Invalid Interpretation Code 130 - 400 10^3/mcL AO Auto Heme SS Potassium [Moles/Vol] 3.5 mmol/L Invalid Interpretation Code 3.5 - 5.1 mmol/L AO ADM SS test (s) int Not detected Invalid Interpretation Code AO Rapid Testing SS Protein [Mass/Vol] 6.8 G/dL Invalid Interpretation Code 6.4 - 8.2 G/dL AO ADM SS RBC (Bld) [#/Vol] 4.13 106/mcL Invalid Interpretation Code 4.20 - 5.40 10^6/mcL AO Auto Heme SS Sodium [Moles/Vol] 140 mmol/L Invalid Interpretation Code 136 - 145 mmol/L AO ADM SS Urea nitrogen [Mass/Vol] 13 mg/dL Invalid Interpretation Code 7 - 18 mg/dL AO ADM SS Urea nitrogen/Creatinine [Mass ratio] 17 ratio Invalid Interpretation Code 7 - 27 ratio AO ADM SS WBC (Bld) [#/Vol] 6.70 103/mcL Invalid Interpretation Code 4.60 - 10.80 10^3/mcL AO Auto Heme SS Anaerobic culture Bacteria identified Anaer cx Nom (Unsp spec) No anaerobic bacteria isolated. [facility] Work Phone: Bacteria identified Anaer cx Nom (Unsp spec) Anaerobic microbial culture No anaerobic bacteria isolated. [facility] Work Phone: Bacteria identified Cx Nom ( Wound) Wound Culture Meth. resistant Stap h. aureus [facility] Work Phone: Culture, urine Bacteria identified Cx Nom (U) Culture exhibits no growth. [facility] Work Phone: Bacteria identified Cx Nom (U) Positive [facility] Work Phone: Gram stain for investigation of transfusion reaction Microscopic observation Gram stain Nom (Unsp spec) [facility] Work Phone: No Panel Information Group B Streptococcus Culture Streptococcus agalactiae (B) [facility] Work Phone: Vital Signs Date Time Vital Sign Value Performing Clinician Facility 05-10-2025 14:26-0400 Body temperature 98 [degF] Dr. Florentin Toribio DO Work Phone: [facility] 05-10-2025 14:26-0400 Diastolic blood pressure 78 mm[Hg] Dr. Florentin Toribio DO Work Phone: [facility] 05-10-2025 14:26-0400 Heart rate 58 /min Dr. Florentin Toribio DO Work Phone: [facility] 05-10-2025 14:26-0400 Respiratory rate 14 /min Dr. Florentin Toribio DO Work Phone: [facility] 05-10-2025 14:26-0400 SaO2% (BldA) [Mass fraction] 98 % Dr. Florentin Toribio DO Work Phone: [facility] 05-10-2025 14:26-0400 Systolic blood pressure 120 mm[Hg] Dr. Florentin Toribio DO Work Phone: [facility] 05-10-2025 13:14-0400 Body height 175.[address] Florentin Toribio DO Work Phone: [facility] 05-10-2025 13:14-0400 Body mass index (BMI) [Ratio] 18.6 kg/m2 Dr. Florentin Toribio DO Work Phone: [facility] 05-10-2025 13:14-0400 Body weight 57.[address] Florentin Toribio DO Work Phone: [facility] 05-09-2025 08:26-0400 Body mass index (BMI) [Ratio] 18.37 kg/m2 Anthony Shank OVERHEAD CRANE INSPECTOR.DRAPERY CUTTER MACHINE Work Phone: [facility] 05-09-2025 08:26-0400 Body weight 56.43 kg Anthony Shank OVERHEAD CRANE INSPECTOR.DRAPERY CUTTER MACHINE Work Phone: [facility] 05-09-2025 08:26-0400 Diastolic blood pressure 65 mm[Hg] Anthony Shank OVERHEAD CRANE INSPECTOR.DRAPERY CUTTER MACHINE Work Phone: [facility] 05-09-2025 08:26-0400 Heart rate 88 /min Anthony Shank OVERHEAD CRANE INSPECTOR.DRAPERY CUTTER MACHINE Work Phone: [facility] 05-09-2025 08:26-0400 Systolic blood pressure 99 mm[Hg] Anthony Shank OVERHEAD CRANE INSPECTOR.DRAPERY CUTTER MACHINE Work Phone: [facility] 03-25-2025 01:36-0400 Body temperature 98.5 [degF] Dr. Florentin Toribio DO Work Phone: [facility] 03-25-2025 01:36-0400 Diastolic blood pressure 82 mm[Hg] Dr. Florentin Toribio DO Work Phone: [facility] 03-25-2025 01:36-0400 Heart rate 92 /min Dr. lForentin Toribio DO Work Phone: [facility] 03-25-2025 01:36-0400 Respiratory rate 16 /min Dr. Florentin Toribio DO Work Phone: [facility] 03-25-2025 01:36-0400 SaO2% (BldA) [Mass fraction] 98 % Dr. Florentin Toribio DO Work Phone: [facility] 03-25-2025 01:36-0400 Systolic blood pressure 115 mm[Hg] Dr. Florentin Toribio DO Work Phone: [facility] 03-24-2025 23:53-0400 Body height 175.[address] Florentin Toribio DO Work Phone: [facility] 03-24-2025 23:53-0400 Body mass index (BMI) [Ratio] 18.8 kg/m2 Dr. Florentin Toribio DO Work Phone: [facility] 03-24-2025 23:53-0400 Body weight 57.[address] Florentin Toribio DO Work Phone: [facility] 02-11-2025 01:33-0400 Body temperature 97.6 [degF] Dr. Florentin Toribio DO Work Phone: [facility] 02-11-2025 01:33-0400 Diastolic blood pressure 68 mm[Hg] Dr. Florentin Toribio DO Work Phone: [facility] 02-11-2025 01:33-0400 Heart rate 87 /min Dr. Florentin Toribio DO Work Phone: [facility] 02-11-2025 01:33-0400 Respiratory rate 18 /min Dr. Florentin Toribio DO Work Phone: [facility] 02-11-2025 01:33-0400 SaO2% (BldA) [Mass fraction] 99 % Dr. Florentin Toribio DO Work Phone: [facility] 02-11-2025 01:33-0400 Systolic blood pressure 110 mm[Hg] Dr. Florentin Toribio DO Work Phone: [facility] 02-10-2025 23:29-0400 Body height 175.[address] Florentin Toribio DO Work Phone: [facility] 02-10-2025 23:29-0400 Body mass index (BMI) [Ratio] 17.3 kg/m2 Dr. Florentin Toribio DO Work Phone: [facility] 02-10-2025 23:29-0400 Body weight 53.[address] Florentin Toribio DO Work Phone: [facility] 01-13-2025 13:40-0500 Body height 175.3 cm Dori Johnson PA-C Work Phone: [facility] 01-13-2025 13:40-0500 Body mass index (BMI) [Ratio] 17.72 kg/m2 Dori Johnson PA-C Work Phone: [facility] 01-13-2025 13:40-0500 Body weight 54.43 kg Dori Johnson PA-C Work Phone: [facility] 11-29-2024 19:34-0500 Body mass index (BMI) [Ratio] 19.9 kg/m2 Dr. Florentin Toribio DO Work Phone: [facility] 11-29-2024 19:34-0500 Body temperature 97.1 [degF] Dr. Florentin Toribio DO Work Phone: [facility] 11-29-2024 19:34-0500 Body weight 61.[address] Florentin Toribio DO Work Phone: [facility] 11-29-2024 19:34-0500 Diastolic blood pressure 82 mm[Hg] Dr. Florentin Toribio DO Work Phone: [facility] 11-29-2024 19:34-0500 Heart rate 86 /min Dr. Florentin Toribio DO Work Phone: [facility] 11-29-2024 19:34-0500 Respiratory rate 18 /min Dr. Florentin Toribio DO Work Phone: [facility] 11-29-2024 19:34-0500 SaO2% (BldA) [Mass fraction] 100 % Dr. Florentin Toribio DO Work Phone: [facility] 11-29-2024 19:34-0500 Systolic blood pressure 112 mm[Hg] Dr. Florentin Toribio DO Work Phone: [facility] 11-18-2024 08:37-0500 Body mass index (BMI) [Ratio] 19.35 kg/m2 Monty Rivera MD Work Phone: [facility] 11-18-2024 08:37-0500 Body weight 59.42 kg Monty Rivera MD Work Phone: [facility] 11-18-2024 08:37-0500 Diastolic blood pressure 66 mm[Hg] Monty Rivera MD Work Phone: [facility] 11-18-2024 08:37-0500 Heart rate 82 /min Monty Rivera MD Work Phone: [facility] 11-18-2024 08:37-0500 Systolic blood pressure 91 mm[Hg] Monty Rivera MD Work Phone: [facility] 10-21-2024 11:12-0500 Body mass index (BMI) [Ratio] 20.23 kg/m2 Lynnette Wm DO Work Phone: [facility] 10-21-2024 11:12-0500 Body weight 62.14 kg Lynnette Wm DO Work Phone: [facility] 10-21-2024 11:12-0500 Diastolic blood pressure 79 mm[Hg] Lynnette Wm DO Work Phone: [facility] 10-21-2024 11:12-0500 Heart rate 87 /min Lynnette Wm DO Work Phone: [facility] 10-21-2024 11:12-0500 Systolic blood pressure 110 mm[Hg] Lynnette Wm DO Work Phone: [facility] 09-28-2024 10:52-0500 Body mass index (BMI) [Ratio] 21.56 kg/m2 Anthoyn Cook OVERHEAD CRANE INSPECTOR.DRAPERY CUTTER MACHINE Work Phone: [facility] 09-28-2024 10:52-0500 Body weight 66.22 kg Anthony Shank OVERHEAD CRANE INSPECTOR.DRAPERY CUTTER MACHINE Work Phone: [facility] 09-28-2024 10:52-0500 Diastolic blood pressure 70 mm[Hg] Anthony Shank OVERHEAD CRANE INSPECTOR.DRAPERY CUTTER MACHINE Work Phone: [facility] 09-28-2024 10:52-0500 Heart rate 114 /min Anthony Cook OVERHEAD CRANE INSPECTOR.DRAPERY CUTTER MACHINE Work Phone: [facility] [facility]-2024 10:52-0500 Systolic blood pressure 104 mm[Hg] Anthony Joyce OVERHEAD CRANE INSPECTOR.DRAPERY CUTTER MACHINE Work Phone: [facility] 09-21-2024 08:21-0500 Body mass index (BMI) [Ratio] 21.56 kg/m2 Priti Picciotto DO Work Phone: [facility] 09-21-2024 08:21-0500 Body weight 66.22 kg Priti Picciotto DO Work Phone: [facility] 09-21-2024 08:21-0500 Diastolic blood pressure 70 mm[Hg] Priti Picciotto DO Work Phone: [facility] 09-21-2024 08:21-0500 Heart rate 82 /min Priti Picciotto DO Work Phone: [facility] 09-21-2024 08:21-0500 Systolic blood pressure 103 mm[Hg] Priti Picciotto DO Work Phone: [facility] 09-14-2024 09:27-0500 Body mass index (BMI) [Ratio] 22 kg/m2 Priti Picciotto DO Work Phone: [facility] 09-14-2024 09:27-0500 Body weight 67.59 kg Priti Picciotto DO Work Phone: [facility] 09-14-2024 09:27-0500 Diastolic blood pressure 72 mm[Hg] Priti Picciotto DO Work Phone: [facility] 09-14-2024 09:27-0500 Heart rate 92 /min Priti Picciotto DO Work Phone: [facility] 09-14-2024 09:27-0500 Systolic blood pressure 108 mm[Hg] Priti Picciotto DO Work Phone: [facility] 09-04-2024 09:46-0400 Body temperature 98.1 [degF] Jessica Zunigau PA-C Work Phone: [facility] 09-04-2024 09:46-0400 Diastolic blood pressure 69 mm[Hg] Jessica Gaonanau PA-C Work Phone: [facility] 09-04-2024 09:46-0400 Heart rate 98 /min Jessica Gaonanau PA-C Work Phone: [facility] 09-04-2024 09:46-0400 Respiratory rate 20 /min Jessica Gaonanau PA-C Work Phone: [facility] 09-04-2024 09:46-0400 SaO2% (BldA) [Mass fraction] 98 % Jessica Zunigau PA-C Work Phone: [facility] 09-04-2024 09:46-0400 Systolic blood pressure 103 mm[Hg] Jessica Gaonanau PA-C Work Phone: [facility] 08-31-2024 09:49-0400 Body mass index (BMI) [Ratio] 21.83 kg/m2 Anthony Shank OVERHEAD CRANE INSPECTOR.DRAPERY CUTTER MACHINE Work Phone: [facility] 08-31-2024 09:49-0400 Body weight 67.04 kg Anthony Shank OVERHEAD CRANE INSPECTOR.DRAPERY CUTTER MACHINE Work Phone: [facility] 08-31-2024 09:49-0400 Diastolic blood pressure 63 mm[Hg] Anthony Shank OVERHEAD CRANE INSPECTOR.DRAPERY CUTTER MACHINE Work Phone: [facility] 08-31-2024 09:49-0400 Heart rate 86 /min Anthony Shank OVERHEAD CRANE INSPECTOR.DRAPERY CUTTER MACHINE Work Phone: [facility] 08-31-2024 09:49-0400 Systolic blood pressure 92 mm[Hg] Anthony Shank OVERHEAD CRANE INSPECTOR.DRAPERY CUTTER MACHINE Work Phone: [facility] 08-17-2024 10:10-0400 Body mass index (BMI) [Ratio] 20.97 kg/m2 Anthony Shank OVERHEAD CRANE INSPECTOR.DRAPERY CUTTER MACHINE Work Phone: [facility] 08-17-2024 10:10-0400 Body weight 64.41 kg Anthony Shank OVERHEAD CRANE INSPECTOR.DRAPERY CUTTER MACHINE Work Phone: [facility] 08-17-2024 10:10-0400 Diastolic blood pressure 72 mm[Hg] Anthony Shank OVERHEAD CRANE INSPECTOR.DRAPERY CUTTER MACHINE Work Phone: [facility] 08-17-2024 10:10-0400 Heart rate 101 /min Anthony Shank OVERHEAD CRANE INSPECTOR.DRAPERY CUTTER MACHINE Work Phone: [facility] 08-17-2024 10:10-0400 Systolic blood pressure 105 mm[Hg] Anthony Shank OVERHEAD CRANE INSPECTOR.DRAPERY CUTTER MACHINE Work Phone: [facility] 07-21-2024 09:35-0400 Body mass index (BMI) [Ratio] 20.38 kg/m2 Priti Picciotto DO Work Phone: [facility] 07-21-2024 09:35-0400 Body weight 62.6 kg Priti Picciotto DO Work Phone: [facility] 07-21-2024 09:35-0400 Diastolic blood pressure 60 mm[Hg] Priti Picciotto DO Work Phone: [facility] 07-21-2024 09:35-0400 Heart rate 95 /min Priti Picciotto DO Work Phone: [facility] 07-21-2024 09:35-0400 Systolic blood pressure 91 mm[Hg] Priti Picciotto DO Work Phone: [facility] 07-11-2024 15:13-0400 Body mass index (BMI) [Ratio] 19.92 kg/m2 Tesfaye Connell MD Work Phone: [facility] 07-11-2024 15:13-0400 Body temperature 98.8 [degF] Tesfaye Connell MD Work Phone: [facility] 07-11-2024 15:13-0400 Body weight 61.2 kg Tesfaye Connell MD Work Phone: [facility] 07-11-2024 15:13-0400 Diastolic blood pressure 62 mm[Hg] Tesfaye Connell MD Work Phone: [facility] 07-11-2024 15:13-0400 Heart rate 83 /min Tesfaye Connell MD Work Phone: [facility] 07-11-2024 15:13-0400 Respiratory rate 18 /min Tesfaye Connell MD Work Phone: [facility] 07-11-2024 15:13-0400 SaO2% (BldA) [Mass fraction] 98 % Tesfaye Connell MD Work Phone: [facility] 07-11-2024 15:13-0400 Systolic blood pressure 98 mm[Hg] Tesfaye Connell MD Work Phone: [facility] 06-30-2024 13:30-0400 Body height 175.3 cm Aljeandrina Wall DO Work Phone: [facility] 06-30-2024 13:30-0400 Body mass index (BMI) [Ratio] 19.6 kg/m2 Alejandrina Wall DO Work Phone: [facility] 06-30-2024 13:30-0400 Body weight 60.19 kg Alejandrina Wall DO Work Phone: [facility] 06-30-2024 13:30-0400 Diastolic blood pressure 66 mm[Hg] Alejandrina Wall DO Work Phone: [facility] 06-30-2024 13:30-0400 Heart rate 94 /min Alejandrina Wall DO Work Phone: [facility] 06-30-2024 13:30-0400 SaO2% (BldA) [Mass fraction] 100 % Alejandrina Wall DO Work Phone: [facility] Comment on above: 06-30-2024 13:30-0400 Systolic blood pressure 96 mm[Hg] Alejandrina Wall DO Work Phone: [facility] 06-24-2024 11:18-0400 Body mass index (BMI) [Ratio] 19.05 kg/m2 Scott Hoang MD Work Phone: [facility] 06-24-2024 11:18-0400 Body weight 58.51 kg Scott Hoang MD Work Phone: [facility] 06-24-2024 11:18-0400 Diastolic blood pressure 60 mm[Hg] Scott Hoang MD Work Phone: [facility] 06-24-2024 11:18-0400 Heart rate 105 /min Scott Hoang MD Work Phone: [facility] 06-24-2024 11:18-0400 Systolic blood pressure 89 mm[Hg] Scott Hoang MD Work Phone: [facility] 05-26-2024 13:00-0400 Body mass index (BMI) [Ratio] 19.02 kg/m2 Fibras Andinas [place] Work Phone: [facility] 05-26-2024 13:00-0400 Body weight 58.42 kg Fibras [place] [place] Work Phone: [facility] 05-26-2024 13:00-0400 Diastolic blood pressure 67 mm[Hg] Fibras [place] Work Phone: [facility] 05-26-2024 13:00-0400 Heart rate 98 /min Fibras [place] Work Phone: [facility] 05-26-2024 13:00-0400 Systolic blood pressure 95 mm[Hg] Fibras [place] Work Phone: [facility] 05-11-2024 08:29-0400 Body mass index (BMI) [Ratio] 19.02 kg/m2 Anya Nagy MD Work Phone: [facility] 05-11-2024 08:29-0400 Body weight 58.42 kg Anya Nagy MD Work Phone: [facility] 05-11-2024 08:29-0400 Diastolic blood pressure 60 mm[Hg] Anya Nagy MD Work Phone: [facility] 05-11-2024 08:29-0400 Systolic blood pressure 90 mm[Hg] Anya Nagy MD Work Phone: [facility] 05-05-2024 14:59-0400 Body mass index (BMI) [Ratio] 18.88 kg/m2 Johnna Vaughan MD Work Phone: [facility] 05-05-2024 14:59-0400 Body weight 58 kg Johnna Vaughan MD Work Phone: [facility] 05-05-2024 14:59-0400 Diastolic blood pressure 62 mm[Hg] Johnna Vaughan MD Work Phone: [facility] 05-05-2024 14:59-0400 Systolic blood pressure 100 mm[Hg] Johnna Vaughan MD Work Phone: [facility] 04-26-2024 10:41-0400 Body height 175.3 cm Jose A Ramirez MD Work Phone: [facility] 04-26-2024 10:41-0400 Body mass index (BMI) [Ratio] 18.75 kg/m2 Jose A Ramirez MD Work Phone: [facility] 04-26-2024 10:41-0400 Body weight 57.61 kg Jose A Ramirez MD Work Phone: [facility] 04-26-2024 10:41-0400 Diastolic blood pressure 65 mm[Hg] Jose A Ramirez MD Work Phone: [facility] 04-26-2024 10:41-0400 Systolic blood pressure 96 mm[Hg] Jose A Ramirez MD Work Phone: [facility] 04-07-2024 14:34-0400 Body height 170.6 cm Akiko Tomlin PA-C Work Phone: [facility] 04-07-2024 14:34-0400 Body mass index (BMI) [Ratio] 20.44 kg/m2 Akiko Lovettcio PA-C Work Phone: [facility] 04-07-2024 14:34-0400 Body weight 59.5 kg Akiko Miccio PA-C Work Phone: [facility] 04-07-2024 14:34-0400 Diastolic blood pressure 61 mm[Hg] Akiko Miccio PA-C Work Phone: [facility] 04-07-2024 14:34-0400 Heart rate 102 /min Akiko Miccio PA-C Work Phone: [facility] 04-07-2024 14:34-0400 Systolic blood pressure 112 mm[Hg] Akiko Miccio PA-C Work Phone: [facility] 03-28-2024 00:17-0400 Body temperature 98.4 [degF] Randal Rivera Jr., DO Work Phone: [facility] 03-28-2024 00:17-0400 Diastolic blood pressure 74 mm[Hg] Randal Rivera Jr., DO Work Phone: [facility] 03-28-2024 00:17-0400 Heart rate 85 /min Randal Rivera Jr., DO Work Phone: [facility] 03-28-2024 00:17-0400 Respiratory rate 20 /min Randal Rivera Jr., DO Work Phone: [facility] 03-28-2024 00:17-0400 SaO2% (BldA) [Mass fraction] 99 % Randal Rivera Jr., DO Work Phone: [facility] 03-28-2024 00:17-0400 Systolic blood pressure 110 mm[Hg] Randal Rivera Jr., DO Work Phone: [facility] 03-28-2024 00:15-0400 Body height 175.3 cm Randal Rivera Jr., DO Work Phone: [facility] 03-28-2024 00:15-0400 Body mass index (BMI) [Ratio] 18.61 kg/m2 Randal Rivera Jr., DO Work Phone: [facility] 03-28-2024 00:15-0400 Body weight 57.15 kg Randal Cortezmanny Bergeron, DO Work Phone: [facility] 03-23-2024 10:30-0400 Body temperature 98.91 [degF] Praveen Athy PA-C Work Phone: [facility] 03-23-2024 10:30-0400 Body weight 58.3 kg Praveen Athy PA-C Work Phone: [facility] 03-23-2024 10:30-0400 Diastolic blood pressure 72 mm[Hg] Praveen Athy PA-C Work Phone: [facility] 03-23-2024 10:30-0400 Heart rate 106 /min Praveen Athy PA-C Work Phone: [facility] 03-23-2024 10:30-0400 Respiratory rate 16 /min Praveen Athy PA-C Work Phone: [facility] 03-23-2024 10:30-0400 SaO2% (BldA) [Mass fraction] 99 % Praveen Athy PA-C Work Phone: [facility] 03-23-2024 10:30-0400 Systolic blood pressure 122 mm[Hg] Praveen Athy PA-C Work Phone: [facility] 03-17-2024 16:30-0400 Diastolic blood pressure 60 mm[Hg] Jarek Nesheim DO Work Phone: [facility] 03-17-2024 16:30-0400 Heart rate 76 /min Jarek Nesheim DO Work Phone: [facility] 03-17-2024 16:30-0400 Respiratory rate 16 /min Jarek Nesheim DO Work Phone: [facility] 03-17-2024 16:30-0400 SaO2% (BldA) [Mass fraction] 100 % Jarek Nesheim DO Work Phone: [facility] 03-17-2024 16:30-0400 Systolic blood pressure 100 mm[Hg] Jarek Nesheim DO Work Phone: [facility] 03-17-2024 14:58-0400 Body temperature 99 [degF] Jarek Nesheim DO Work Phone: [facility] 03-17-2024 12:08-0400 Body height 175.3 cm Jarek Nesheim DO Work Phone: [facility] 03-17-2024 12:08-0400 Body mass index (BMI) [Ratio] 18.9 kg/m2 Jarek Nesheim DO Work Phone: [facility] 03-17-2024 12:08-0400 Body weight 58.06 kg Jarek Nesheim DO Work Phone: [facility] 03-09-2024 01:50-0400 Diastolic Blood Pressure Non-Invasive 64 mm[Hg] DR BE STALLINGS MD [facility] 03-09-2024 01:50-0400 Heart rate 80 /min DR BE STALLINGS MD [facility] 03-09-2024 01:50-0400 Mean blood pressure 76 mm[Hg] DR BE STALLINGS MD [facility] 03-09-2024 01:50-0400 Respiratory rate 18 /min DR BE STALLINGS MD [facility] 03-09-2024 01:50-0400 Systolic Blood Pressure Non-Invasive 102 mm[Hg] DR BE STALLINGS MD [facility] 03-09-2024 00:41-0400 Body temperature 97.7 [degF] DR BE STALLINGS MD [facility] 03-09-2024 00:41-0400 Diastolic Blood Pressure Non-Invasive 74 mm[Hg] DR BE STALLINGS MD [facility] 03-09-2024 00:41-0400 Heart rate 105 /min DR BE STALLINGS MD [facility] 03-09-2024 00:41-0400 Respiratory rate 24 /min DR BE STALLINGS MD [facility] 03-09-2024 00:41-0400 Systolic Blood Pressure Non-Invasive 113 mm[Hg] DR BE STALLINGS MD [facility] 11-21-2023 20:15-0500 Body height 175.[address] Florentin Toribio Work Phone: [facility] 11-21-2023 20:15-0500 Body mass index (BMI) [Percentile] Per age and sex 1.1 % Dr. Florentin Toribio Work Phone: [facility] 11-21-2023 20:15-0500 Body mass index (BMI) [Ratio] 16.8 kg/m2 Dr. Florentin Toribio Work Phone: [facility] 11-21-2023 20:15-0500 Body temperature 98.3 [degF] Dr. Florentin Toribio Work Phone: [facility] 11-21-2023 20:15-0500 Body weight 51.[address] Florentin Toribio Work Phone: [facility] 11-21-2023 20:15-0500 Diastolic blood pressure 78 mm[Hg] Dr. Florentin Toribio Work Phone: [facility] 11-21-2023 20:15-0500 Heart rate 95 /min Dr. Florentin Toribio Work Phone: [facility] 11-21-2023 20:15-0500 Respiratory rate 18 /min Dr. Florentin Toribio Work Phone: [facility] 11-21-2023 20:15-0500 SaO2% (BldA) [Mass fraction] 100 % Dr. Florentin Toribio Work Phone: [facility] 11-21-2023 20:15-0500 Systolic blood pressure 128 mm[Hg] Dr. Florentin Toribio Work Phone: [facility] 08-31-2023 06:37-0400 Diastolic blood pressure 79 mm[Hg] Dr. Florentin Toribio Work Phone: [facility] 08-31-2023 06:37-0400 Heart rate 104 /min Dr. Florentin Toribio Work Phone: [facility] 08-31-2023 06:37-0400 Respiratory rate 15 /min Dr. Florentin Toribio Work Phone: [facility] 08-31-2023 06:37-0400 SaO2% (BldA) [Mass fraction] 100 % Dr. Florentin Toribio Work Phone: [facility] 08-31-2023 06:37-0400 Systolic blood pressure 118 mm[Hg] Dr. Florentin Toribio Work Phone: [facility] 08-31-2023 05:48-0400 Body height 175.[address] Florentin Toribio Work Phone: [facility] 08-31-2023 05:48-0400 Body mass index (BMI) [Percentile] Per age and sex 2.6 % Dr. Florentin Toribio Work Phone: [facility] 08-31-2023 05:48-0400 Body mass index (BMI) [Ratio] 17.3 kg/m2 Dr. Florentin Toribio Work Phone: [facility] 08-31-2023 05:48-0400 Body temperature 97 [degF] Dr. Florentin Toribio Work Phone: [facility] 08-31-2023 05:48-0400 Body weight 53.[address] Florentin Toribio Work Phone: [facility] 08-07-2023 13:54-0400 Body mass index (BMI) [Percentile] Per age and sex 0.8 % Dr. Florentin Toribio Work Phone: [facility] 08-07-2023 13:54-0400 Body mass index (BMI) [Ratio] 16.6 kg/m2 Dr. Florentin Toribio Work Phone: [facility] 08-07-2023 13:54-0400 Body weight 50.[address] Florentin Toribio Work Phone: [facility] 08-07-2023 13:54-0400 Diastolic blood pressure 80 mm[Hg] Dr. Florentin Toribio Work Phone: [facility] 08-07-2023 13:54-0400 Systolic blood pressure 116 mm[Hg] Dr. Florentin Toribio Work Phone: [facility] 07-28-2023 14:13-0400 Body temperature 98.49 [degF] Wagner Conte MD Work Phone: [facility] 07-28-2023 14:13-0400 Diastolic blood pressure 78 mm[Hg] Wagner Conte MD Work Phone: [facility] 07-28-2023 14:13-0400 Heart rate 121 /min Wagner Conte MD Work Phone: [facility] 07-28-2023 14:13-0400 SaO2% (BldA) [Mass fraction] 96 % Wagner Conte MD Work Phone: [facility] 07-28-2023 14:13-0400 Systolic blood pressure 98 mm[Hg] Wagner Conte MD Work Phone: [facility] 07-15-2023 13:48-0400 Body height 175.3 cm Wagner Conte MD Work Phone: [facility] 07-15-2023 13:48-0400 Body mass index (BMI) [Percentile] Per age and sex 0.74 % Wagner Conte MD Work Phone: [facility] 07-15-2023 13:48-0400 Body temperature 98.71 [degF] Wagner Conte MD Work Phone: [facility] 07-15-2023 13:48-0400 Body weight 50.89 kg Wagner Conte MD Work Phone: [facility] 07-15-2023 13:48-0400 Diastolic blood pressure 72 mm[Hg] Wagner Conte MD Work Phone: [facility] 07-15-2023 13:48-0400 Heart rate 109 /min Wagner Conte MD Work Phone: [facility] 07-15-2023 13:48-0400 SaO2% (BldA) [Mass fraction] 97 % Wagner Conte MD Work Phone: [facility] 07-15-2023 13:48-0400 Systolic blood pressure 104 mm[Hg] Wagner Conte MD Work Phone: [facility] 06-09-2023 03:14-0400 Diastolic blood pressure 57 mm[Hg] [facility] 06-09-2023 03:14-0400 Heart rate 63 /min [facility] 06-09-2023 03:14-0400 Respiratory rate 18 /min [facility] 06-09-2023 03:14-0400 SaO2% (BldA) [Mass fraction] 99 % [facility] 06-09-2023 03:14-0400 Systolic blood pressure 97 mm[Hg] [facility] 06-09-2023 00:43-0400 Body height 175.[address] [facility] 06-09-2023 00:43-0400 Body mass index (BMI) [Percentile] Per age and sex 1.7 % [facility] 06-09-2023 00:43-0400 Body mass index (BMI) [Ratio] 17 kg/m2 [facility] 06-09-2023 00:43-0400 Body temperature 97.6 [degF] [facility] 07-31-2023 00:43-0400 Body weight 52.[address] [facility] 05-06-2023 15:55-0400 Body mass index (BMI) [Percentile] Per age and sex 0.99 % Yoel Guzmán OVERHEAD CRANE INSPECTOR.DRAPERY CUTTER MACHINE Work Phone: [facility] 05-06-2023 15:55-0400 Body temperature 97.9 [degF] Yoel Guzmán OVERHEAD CRANE INSPECTOR.DRAPERY CUTTER MACHINE Work Phone: [facility] 05-06-2023 15:55-0400 Body weight 51.26 kg Yoel Guzmán OVERHEAD CRANE INSPECTOR.DRAPERY CUTTER MACHINE Work Phone: [facility] 05-06-2023 15:55-0400 Diastolic blood pressure 66 mm[Hg] Yoel Guzmán OVERHEAD CRANE INSPECTOR.DRAPERY CUTTER MACHINE Work Phone: [facility] 05-06-2023 15:55-0400 Heart rate 102 /min Yoel Guzmán OVERHEAD CRANE INSPECTOR.DRAPERY CUTTER MACHINE Work Phone: [facility] 05-06-2023 15:55-0400 Respiratory rate 16 /min Yoel Guzmán OVERHEAD CRANE INSPECTOR.DRAPERY CUTTER MACHINE Work Phone: [facility] 05-06-2023 15:55-0400 SaO2% (BldA) [Mass fraction] 98 % oYel Guzmán OVERHEAD CRANE INSPECTOR.DRAPERY CUTTER MACHINE Work Phone: [facility] 05-06-2023 15:55-0400 Systolic blood pressure 100 mm[Hg] Yoel Guzmán OVERHEAD CRANE INSPECTOR.DRAPERY CUTTER MACHINE Work Phone: [facility] 05-05-2023 13:18-0400 Body height 175.3 cm Wagner Conte MD Work Phone: [facility] 05-05-2023 13:18-0400 Body mass index (BMI) [Percentile] Per age and sex 1.3 % Wagner Conte MD Work Phone: [facility] 05-05-2023 13:18-0400 Body temperature 98.4 [degF] Wagner Conte MD Work Phone: [facility] 05-05-2023 13:18-0400 Body weight 51.71 kg Wagner Conte MD Work Phone: [facility] 05-05-2023 13:18-0400 Diastolic blood pressure 50 mm[Hg] Wagner Conte MD Work Phone: [facility] 05-05-2023 13:18-0400 Heart rate 105 /min Wagner Conte MD Work Phone: [facility] 05-05-2023 13:18-0400 SaO2% (BldA) [Mass fraction] 99 % Wagner Conte MD Work Phone: [facility] 05-05-2023 13:18-0400 Systolic blood pressure 90 mm[Hg] Wagner Conte MD Work Phone: [facility] 04-27-2023 00:26-0400 Body height 175.[address] [facility] 04-27-2023 00:26-0400 Body mass index (BMI) [Percentile] Per age and sex 3.8 % [facility] 04-27-2023 00:26-0400 Body mass index (BMI) [Ratio] 17.5 kg/m2 [facility] 04-27-2023 00:26-0400 Body temperature 97 [degF] [facility] 04-27-2023 00:26-0400 Body weight 53.[address] [facility] 04-27-2023 00:26-0400 Diastolic blood pressure 72 mm[Hg] [facility] 04-27-2023 00:26-0400 Heart rate 74 /min [facility] 04-27-2023 00:26-0400 Respiratory rate 18 /min [facility] 04-27-2023 00:26-0400 SaO2% (BldA) [Mass fraction] 99 % [facility] 04-27-2023 00:26-0400 Systolic blood pressure 118 mm[Hg] [facility] 03-11-2023 00:19-0400 Diastolic blood pressure 64 mm[Hg] [facility] 03-11-2023 00:19-0400 Heart rate 78 /min [facility] 03-11-2023 00:19-0400 Respiratory rate 16 /min [facility] 03-11-2023 00:19-0400 SaO2% (BldA) [Mass fraction] 98 % [facility] 03-11-2023 00:19-0400 Systolic blood pressure 111 mm[Hg] [facility] 03-10-2023 21:01-0400 Body height 175.[address] [facility] 03-10-2023 21:01-0400 Body mass index (BMI) [Percentile] Per age and sex 1.1 % [facility] 03-10-2023 21:01-0400 Body mass index (BMI) [Ratio] 16.7 kg/m2 [facility] 03-10-2023 21:01-0400 Body temperature 99 [degF] [facility] 03-10-2023 21:01-0400 Body weight 51.[address] [facility] 03-04-2023 23:33-0400 Body height 175.[address] [facility] 03-04-2023 23:33-0400 Body mass index (BMI) [Percentile] Per age and sex 0.7 % [facility] 03-04-2023 23:33-0400 Body mass index (BMI) [Ratio] 16.5 kg/m2 [facility] 03-04-2023 23:33-0400 Body temperature 97.3 [degF] [facility] 03-04-2023 23:33-0400 Body weight 50.[address] [facility] 03-04-2023 23:33-0400 Diastolic blood pressure 77 mm[Hg] [facility] 03-04-2023 23:33-0400 Heart rate 86 /min [facility] 03-04-2023 23:33-0400 Respiratory rate 16 /min [facility] 03-04-2023 23:33-0400 SaO2% (BldA) [Mass fraction] 99 % [facility] 03-04-2023 23:33-0400 Systolic blood pressure 98 mm[Hg] [facility] 01-19-2023 12:56-0400 Body temperature 98.8 [degF] Mer Bardales APRN.DRAPERY CUTTER MACHINE Work Phone: [facility] 01-19-2023 12:56-0400 Body weight 51.26 kg Mer Praisler-Wood OVERHEAD CRANE INSPECTOR.DRAPERY CUTTER MACHINE Work Phone: [facility] 01-19-2023 12:56-0400 Diastolic blood pressure 70 mm[Hg] Mer Praisler-Wood OVERHEAD CRANE INSPECTOR.DRAPERY CUTTER MACHINE Work Phone: [facility] 01-19-2023 12:56-0400 Heart rate 114 /min Mer Praisler-Wood OVERHEAD CRANE INSPECTOR.DRAPERY CUTTER MACHINE Work Phone: [facility] 01-19-2023 12:56-0400 Respiratory rate 18 /min Mer Praisler-Wood OVERHEAD CRANE INSPECTOR.DRAPERY CUTTER MACHINE Work Phone: [facility] 01-19-2023 12:56-0400 SaO2% (BldA) [Mass fraction] 98 % Mer Praisler-Wood OVERHEAD CRANE INSPECTOR.DRAPERY CUTTER MACHINE Work Phone: [facility] 01-19-2023 12:56-0400 Systolic blood pressure 100 mm[Hg] Mer Praisler-Wood OVERHEAD CRANE INSPECTOR.DRAPERY CUTTER MACHINE Work Phone: [facility] 12-26-2022 20:27-0500 Body height 175.[address] [facility] 12-26-2022 20:27-0500 Body mass index (BMI) [Percentile] Per age and sex 2.3 % [facility] 12-26-2022 20:27-0500 Body mass index (BMI) [Ratio] 17.1 kg/m2 [facility] 12-26-2022 20:27-0500 Body temperature 97.1 [degF] [facility] 12-26-2022 20:27-0500 Body weight 52.[address] [facility] 12-26-2022 20:27-0500 Diastolic blood pressure 93 mm[Hg] [facility] 12-26-2022 20:27-0500 Heart rate 90 /min [facility] 12-26-2022 20:27-0500 Respiratory rate 16 /min [facility] 12-26-2022 20:27-0500 SaO2% (BldA) [Mass fraction] 94 % [facility] 12-26-2022 20:27-0500 Systolic blood pressure 114 mm[Hg] [facility] 12-26-2022 18:31-0500 Body temperature 98.42 [degF] DR TAMMY SNIDER MD [facility] 12-26-2022 18:31-0500 Diastolic Blood Pressure Non-Invasive [address] TAMMY SNIDER MD [facility] 12-26-2022 18:31-0500 Heart rate 107 /min DR TAMMY SNIDER MD [facility] 12-26-2022 18:31-0500 Respiratory rate 16 /min DR TAMMY SNIDER MD [facility] 12-26-2022 18:31-0500 Systolic Blood Pressure Non-Invasive [address] TAMMY SNIDER MD [facility] 12-24-2022 22:48-0500 Body height 175.3 cm TENZIN REICHFIELD DO [facility] 12-24-2022 22:48-0500 Body temperature 98.06 [degF] TENZIN REICHFIELD DO [facility] 12-24-2022 22:48-0500 Body weight 53 kg TENZIN REICHFIELD DO [facility] 12-24-2022 22:48-0500 Diastolic Blood Pressure Non-Invasive 78 1 TENZIN REICHFIELD DO [facility] 12-24-2022 22:48-0500 Heart rate 89 /min TENZIN REICHFIELD DO [facility] 12-24-2022 22:48-0500 Height ZScore 1.87 TENZIN REICHFIELD DO [facility] Comment on above: Result Comment: ^~:!ZScore Source -[facility] 12-24-2022 22:48-0500 Percent Height for Age 96.96 1 TENZIN SHERIDAN [place] [facility] Comment on above: Result Comment: ^~:!Percentile Source -[facility] 12-24-2022 22:48-0500 Respiratory rate 16 /min TENZIN SHERIDAN [place] [facility] 12-24-2022 22:48-0500 Systolic Blood Pressure Non-Invasive 121 1 [facility] [place] [facility] 12-10-2022 01:14-0500 Body height 175.[address] Connor Martini Work Phone: [facility] 12-10-2022 01:14-0500 Body mass index (BMI) [Percentile] Per age and sex 2.7 % Dr. Connor Martini Work Phone: [facility] 12-10-2022 01:14-0500 Body mass index (BMI) [Ratio] 17.2 kg/m2 Dr. Connor Martini Work Phone: [facility] 12-10-2022 01:14-0500 Body temperature 97.9 [degF] Dr. Connor Martini Work Phone: [facility] 12-10-2022 01:14-0500 Body weight 52.[address] Connor Martini Work Phone: [facility] 12-10-2022 01:14-0500 Diastolic blood pressure 77 mm[Hg] Dr. Connor Martini Work Phone: [facility] 12-10-2022 01:14-0500 Heart rate 82 /min Dr. Connor Martini Work Phone: [facility] 12-10-2022 01:14-0500 Respiratory rate 16 /min Dr. Connor Martini Work Phone: [facility] 12-10-2022 01:14-0500 SaO2% (BldA) [Mass fraction] 100 % Dr. Connor Martini Work Phone: [facility] 12-10-2022 01:14-0500 Systolic blood pressure 108 mm[Hg] Dr. Connor Martini Work Phone: [facility] 12-06-2022 10:56-0500 Body temperature 98.4 [degF] Krislyn Aberegg PA Work Phone: [facility] 12-06-2022 10:56-0500 Body weight 49.9 kg Krislyn Aberegg PA Work Phone: [facility] 12-06-2022 10:56-0500 Diastolic blood pressure 62 mm[Hg] Krislyn Aberegg PA Work Phone: [facility] 12-06-2022 10:56-0500 Respiratory rate 16 /min Krislyn Aberegg PA Work Phone: [facility] 12-06-2022 10:56-0500 SaO2% (BldA) [Mass fraction] 100 % Krislyn Aberegg PA Work Phone: [facility] 12-06-2022 10:56-0500 Systolic blood pressure 98 mm[Hg] Krislyn Aberegg PA Work Phone: [facility] 11-03-2022 11:15-0500 Diastolic blood pressure 74 mm[Hg] Dr. Connor Martini Work Phone: [facility] 11-03-2022 11:15-0500 Heart rate 62 /min Dr. Connor Martini Work Phone: [facility] 11-03-2022 11:15-0500 Respiratory rate 15 /min Dr. Connor Martini Work Phone: [facility] 11-03-2022 11:15-0500 SaO2% (BldA) [Mass fraction] 99 % Dr. Connor Martini Work Phone: [facility] 11-03-2022 11:15-0500 Systolic blood pressure 109 mm[Hg] Dr. Connor Martini Work Phone: [facility] 11-03-2022 10:03-0500 Body height 175.[address] Connor Martini Work Phone: [facility] 11-03-2022 10:03-0500 Body mass index (BMI) [Percentile] Per age and sex 5.6 % Dr. Connor Martini Work Phone: [facility] 11-03-2022 10:03-0500 Body mass index (BMI) [Ratio] 17.7 kg/m2 Dr. Connor Martini Work Phone: [facility] 11-03-2022 10:03-0500 Body temperature 96.8 [degF] Dr. Connor Martini Work Phone: [facility] 11-03-2022 10:03-0500 Body weight 54.[address] Connor Martini Work Phone: [facility] 10-14-2022 14:13-0500 Diastolic Blood Pressure Non-Invasive 76 1 [place] [facility] 10-14-2022 14:13-0500 Heart rate 62 /min [employer] DO [facility] 10-14-2022 14:13-0500 Respiratory rate 16 /min TENZIN RECASTT DO [facility] 10-14-2022 14:13-0500 Systolic Blood Pressure Non-Invasive 115 1 TENZIN RECASTT DO [facility] 10-14-2022 12:20-0500 Body temperature 98.42 [degF] TENZIN FATIMAH DO [facility] 10-14-2022 12:20-0500 Body weight 54.5 kg TENZIN SHERIDAN DO [facility] 10-14-2022 12:20-0500 Diastolic Blood Pressure Non-Invasive 76 1 ETNZIN SHERIDAN DO [facility] 10-14-2022 12:20-0500 Heart rate 78 /min TENZIN SHERIDAN DO [facility] 10-14-2022 12:20-0500 Respiratory rate 18 /min TENZIN SHERIDAN DO [facility] 10-14-2022 12:20-0500 Systolic Blood Pressure Non-Invasive 139 1 TENZIN SHERIDAN DO [facility] 10-14-2022 02:45-0500 Diastolic blood pressure 63 mm[Hg] Dr. Connor Martini Work Phone: [facility] 10-14-2022 02:45-0500 Heart rate 72 /min Dr. Connor Martini Work Phone: [facility] 10-14-2022 02:45-0500 Respiratory rate 16 /min Dr. Connor Martini Work Phone: [facility] 10-14-2022 02:45-0500 SaO2% (BldA) [Mass fraction] 96 % Dr. Connor Martini Work Phone: [facility] 10-14-2022 02:45-0500 Systolic blood pressure 116 mm[Hg] Dr. Connor Martini Work Phone: [facility] 10-14-2022 00:18-0500 Body height 175.[address] Connor Martini Work Phone: [facility] Work Phone: 10-14-2022 00:18-0500 Body mass index (BMI) [Percentile] Per age and sex 3.9 % Dr. Connor Martini Work Phone: [facility] 10-14-2022 00:18-0500 Body mass index (BMI) [Ratio] 17.4 kg/m2 Dr. Connor Martini Work Phone: [facility] 10-14-2022 00:18-0500 Body temperature 97.5 [degF] Dr. Connor Martini Work Phone: [facility] 10-14-2022 00:18-0500 Body weight 53.[address] Connor Martini Work Phone: [facility] 09-13-2022 14:35-0400 Body temperature 97.9 [degF] Sonam Collins PA-C Work Phone: [facility] 09-13-2022 14:35-0400 Body weight 52.16 kg Sonam Collins PA-C Work Phone: [facility] 09-13-2022 14:35-0400 Diastolic blood pressure 67 mm[Hg] Sonam Skelp PA-C Work Phone: [facility] 09-13-2022 14:35-0400 Heart rate 124 /min Sonam Skelp PA-C Work Phone: [facility] 09-13-2022 14:35-0400 SaO2% (BldA) [Mass fraction] 99 % Sonam Collins PA-C Work Phone: [facility] 09-13-2022 14:35-0400 Systolic blood pressure 92 mm[Hg] Sonam Skelp PA-C Work Phone: [facility] 09-10-2022 10:38-0400 Body mass index (BMI) [Percentile] Per age and sex 2.84 % Yoel Guzmán APRN.CNP Work Phone: [facility] 09-10-2022 10:38-0400 Body temperature 99.61 [degF] Yoel Guzmán APRN.DRAPERY CUTTER MACHINE Work Phone: [facility] 09-10-2022 10:38-0400 Body weight 52.71 kg [facility] OVERHEAD CRANE INSPECTOR.DRAPERY CUTTER MACHINE Work Phone: [facility] 09-10-2022 10:38-0400 Diastolic blood pressure 60 mm[Hg] [facility] OVERHEAD CRANE INSPECTOR.DRAPERY CUTTER MACHINE Work Phone: [facility] 09-10-2022 10:38-0400 Heart rate 113 /min [facility] OVERHEAD CRANE INSPECTOR.DRAPERY CUTTER MACHINE Work Phone: [facility] 09-10-2022 10:38-0400 Respiratory rate 18 /min [facility] OVERHEAD CRANE INSPECTOR.DRAPERY CUTTER MACHINE Work Phone: [facility] 09-10-2022 10:38-0400 SaO2% (BldA) [Mass fraction] 100 % [facility] OVERHEAD CRANE INSPECTOR.DRAPERY CUTTER MACHINE Work Phone: [facility] 09-10-2022 10:38-0400 Systolic blood pressure 100 mm[Hg] [facility] OVERHEAD CRANE INSPECTOR.DRAPERY CUTTER MACHINE Work Phone: [facility] 09-03-2022 14:22-0400 Body height 175.3 cm Wagner Conte MD Work Phone: [facility] 09-03-2022 14:22-0400 Body mass index (BMI) [Percentile] Per age and sex 1.69 % Wagner Conte MD Work Phone: [facility] 09-03-2022 14:22-0400 Body temperature 98.4 [degF] Wagner Conte MD Work Phone: [facility] 09-03-2022 14:22-0400 Body weight 51.71 kg Wagner Conte MD Work Phone: [facility] 09-03-2022 14:22-0400 Diastolic blood pressure 50 mm[Hg] Wagner Conte MD Work Phone: [facility] 09-03-2022 14:22-0400 Heart rate 55 /min Wagner Conte MD Work Phone: [facility] 09-03-2022 14:22-0400 SaO2% (BldA) [Mass fraction] 99 % Wagner Conte MD Work Phone: [facility] 09-03-2022 14:22-0400 Systolic blood pressure 92 mm[Hg] Wagner Conte MD Work Phone: [facility] 09-02-2022 14:40-0400 Body height 175.3 cm Wagner Conte MD Work Phone: [facility] 09-02-2022 14:40-0400 Body mass index (BMI) [Percentile] Per age and sex 3.27 % Wagner Conte MD Work Phone: [facility] 09-02-2022 14:40-0400 Body temperature 97.81 [degF] Wagner Conte MD Work Phone: [facility] 09-02-2022 14:40-0400 Body weight 52.98 kg Wagner Conte MD Work Phone: [facility] 09-02-2022 14:40-0400 Diastolic blood pressure 72 mm[Hg] Wagner oCnte MD Work Phone: [facility] 09-02-2022 14:40-0400 Heart rate 114 /min Wagner Conte MD Work Phone: [facility] 09-02-2022 14:40-0400 Respiratory rate 12 /min Wagner Conte MD Work Phone: [facility] 09-02-2022 14:40-0400 SaO2% (BldA) [Mass fraction] 99 % Wagner Conte MD Work Phone: [facility] 09-02-2022 14:40-0400 Systolic blood pressure 104 mm[Hg] Wagner Conte MD Work Phone: [facility] 08-27-2022 14:37-0400 Body temperature 97.1 [degF] Dr. Connor Martini Work Phone: [facility] 08-27-2022 14:37-0400 Diastolic blood pressure 65 mm[Hg] Dr. Connor Martini Work Phone: [facility] 08-27-2022 14:37-0400 Heart rate 100 /min Dr. Connor Martini Work Phone: [facility] 08-27-2022 14:37-0400 Respiratory rate 16 /min Dr. Connor Martini Work Phone: [facility] 08-27-2022 14:37-0400 Systolic blood pressure 134 mm[Hg] Dr. Connor Martini Work Phone: [facility] 08-23-2022 14:51-0400 Body height 175.3 cm Sonam Collins PA-C Work Phone: [facility] 08-23-2022 14:51-0400 Body mass index (BMI) [Percentile] Per age and sex 4.23 % Sonam Collins PA-C Work Phone: [facility] 08-23-2022 14:51-0400 Body temperature 97.39 [degF] Sonam Skelp PA-C Work Phone: [facility] 08-23-2022 14:51-0400 Body weight 53.52 kg Sonam Collins PA-C Work Phone: [facility] 08-23-2022 14:51-0400 Diastolic blood pressure 54 mm[Hg] Sonam Collins PA-C Work Phone: [facility] 08-23-2022 14:51-0400 Heart rate 104 /min Sonam Skelp PA-C Work Phone: [facility] 08-23-2022 14:51-0400 SaO2% (BldA) [Mass fraction] 95 % Sonam Collins PA-C Work Phone: [facility] 08-23-2022 14:51-0400 Systolic blood pressure 90 mm[Hg] Sonma Skelp PA-C Work Phone: [facility] 08-22-2022 15:37-0400 Body height 175.[address] Connor Martini Work Phone: [facility] Work Phone: 08-22-2022 15:37-0400 Body mass index (BMI) [Percentile] Per age and sex 7.4 % Dr. Connor Martini Work Phone: [facility] 08-22-2022 15:37-0400 Body mass index (BMI) [Ratio] 17.9 kg/m2 Dr. Connor Martini Work Phone: [facility] 08-22-2022 15:37-0400 Body weight 54.[address] Connor Martini Work Phone: [facility] 08-22-2022 15:37-0400 Diastolic blood pressure 72 mm[Hg] Dr. Connor Martini Work Phone: [facility] 08-22-2022 15:37-0400 Systolic blood pressure 109 mm[Hg] Dr. Connor Martini Work Phone: [facility] 08-21-2022 15:56-0400 Body temperature 98.2 [degF] Dr. Connor Martini Work Phone: [facility] 08-21-2022 15:56-0400 Diastolic blood pressure 54 mm[Hg] Dr. Connor Martini Work Phone: [facility] 08-21-2022 15:56-0400 Heart rate 72 /min Dr. Connor Martini Work Phone: [facility] 08-21-2022 15:56-0400 Respiratory rate 16 /min Dr. Connor Martini Work Phone: [facility] 08-21-2022 15:56-0400 SaO2% (BldA) [Mass fraction] 98 % Dr. Connor Martini Work Phone: [facility] 08-21-2022 15:56-0400 Systolic blood pressure 94 mm[Hg] Dr. Connor Martini Work Phone: [facility] 08-19-2022 14:14-0400 Body height 175.[address] Connor Martini Work Phone: [facility] Work Phone: 08-19-2022 14:14-0400 Body weight 50.[address] Connor Martini Work Phone: [facility] 08-18-2022 16:06-0400 Body mass index (BMI) [Percentile] Per age and sex 0.9 % Dr. Connor Martini Work Phone: [facility] 08-18-2022 16:06-0400 Body mass index (BMI) [Ratio] 16.5 kg/m2 Dr. Connor Martini Work Phone: [facility] 08-18-2022 13:31-0400 Body temperature 98.2 [degF] Dr. Connor Martini Work Phone: [facility] Work Phone: 08-18-2022 13:31-0400 Diastolic blood pressure 69 mm[Hg] Dr. Connor Martini Work Phone: [facility] Work Phone: 08-18-2022 13:31-0400 Heart rate 78 /min Dr. Connor Martini Work Phone: [facility] Work Phone: 08-18-2022 13:31-0400 Respiratory rate 16 /min Dr. Connor Martini Work Phone: [facility] Work Phone: 08-18-2022 13:31-0400 SaO2% (BldA) [Mass fraction] 97 % Dr. Connor Martini Work Phone: [facility] Work Phone: 08-18-2022 13:31-0400 Systolic blood pressure 115 mm[Hg] Dr. Connor Martini Work Phone: [facility] Work Phone: 08-18-2022 12:19-0400 Body height 175.[address] Connor Martini Work Phone: [facility] Work Phone: 08-18-2022 12:19-0400 Body mass index (BMI) [Percentile] Per age and sex 5.9 % Dr. Connor Martini Work Phone: [facility] Work Phone: 08-18-2022 12:19-0400 Body mass index (BMI) [Ratio] 17.7 kg/m2 Dr. Connor Martini Work Phone: [facility] Work Phone: 08-18-2022 12:19-0400 Body weight 54.[address] Connor Martini Work Phone: [facility] Work Phone: 08-18-2022 11:57-0400 Body temperature 97.2 [degF] Yoel Guzmán OVERHEAD CRANE INSPECTOR.DRAPERY CUTTER MACHINE Work Phone: [facility] 08-18-2022 11:57-0400 Body weight 51.26 kg Yoel Guzmán OVERHEAD CRANE INSPECTOR.DRAPERY CUTTER MACHINE Work Phone: [facility] 08-18-2022 11:57-0400 Diastolic blood pressure 62 mm[Hg] Yoel Guzmán OVERHEAD CRANE INSPECTOR.DRAPERY CUTTER MACHINE Work Phone: [facility] 08-18-2022 11:57-0400 Heart rate 98 /min Yoel Guzmán OVERHEAD CRANE INSPECTOR.DRAPERY CUTTER MACHINE Work Phone: [facility] 08-18-2022 11:57-0400 Respiratory rate 16 /min Yoel Guzmán OVERHEAD CRANE INSPECTOR.DRAPERY CUTTER MACHINE Work Phone: [facility] 08-18-2022 11:57-0400 SaO2% (BldA) [Mass fraction] 99 % Yoel Guzmán OVERHEAD CRANE INSPECTOR.DRAPERY CUTTER MACHINE Work Phone: [facility] 08-18-2022 11:57-0400 Systolic blood pressure 102 mm[Hg] Yoel Ramirez REICH Work Phone: [facility] 08-06-2022 01:06-0400 Diastolic blood pressure 74 mm[Hg] Dr. Connor Martini Work Phone: [facility] 08-06-2022 01:06-0400 Heart rate 78 /min Dr. Connor Martini Work Phone: [facility] 08-06-2022 01:06-0400 Respiratory rate 16 /min Dr. Connor Martini Work Phone: [facility] 08-06-2022 01:06-0400 SaO2% (BldA) [Mass fraction] 97 % Dr. Connor Martini Work Phone: [facility] 08-06-2022 01:06-0400 Systolic blood pressure 112 mm[Hg] Dr. Connor Martini Work Phone: [facility] 08-06-2022 00:43-0400 Body mass index (BMI) [Percentile] Per age and sex 4.1 % Dr. Connor Martini Work Phone: [facility] 08-06-2022 00:43-0400 Body mass index (BMI) [Ratio] 17.4 kg/m2 Dr. Connor Martini Work Phone: [facility] 08-06-2022 00:43-0400 Body temperature 98.5 [degF] Dr. Connor Martini Work Phone: [facility] 08-06-2022 00:43-0400 Body weight 53.[address] Connor Martini Work Phone: [facility] 08-05-2022 18:05-0400 Body mass index (BMI) [Percentile] Per age and sex 4.1 % Dr. Connor Martini Work Phone: [facility] 08-05-2022 18:05-0400 Body mass index (BMI) [Ratio] 17.4 kg/m2 Dr. Connor Martini Work Phone: [facility] 08-05-2022 18:05-0400 Body temperature 98.3 [degF] Dr. Connor Martini Work Phone: [facility] 08-05-2022 18:05-0400 Body weight 53.[address] Connor Martini Work Phone: [facility] 08-05-2022 18:05-0400 Diastolic blood pressure 72 mm[Hg] Dr. Connor Martini Work Phone: [facility] 08-05-2022 18:05-0400 Heart rate 74 /min Dr. Connor Martini Work Phone: [facility] 08-05-2022 18:05-0400 Respiratory rate 15 /min Dr. Connor Martini Work Phone: [facility] 08-05-2022 18:05-0400 SaO2% (BldA) [Mass fraction] 99 % Dr. Connor Martini Work Phone: [facility] 08-05-2022 18:05-0400 Systolic blood pressure 97 mm[Hg] Dr. Connor Martini Work Phone: [facility] 08-01-2022 09:31-0400 Body mass index (BMI) [Percentile] Per age and sex 7.5 % Dr. Connor Martini Work Phone: [facility] 08-01-2022 09:31-0400 Body mass index (BMI) [Ratio] 17.9 kg/m2 Dr. Connor Martini Work Phone: [facility] 08-01-2022 09:31-0400 Body weight 54.[address] Connor Martini Work Phone: [facility] 08-01-2022 09:31-0400 Diastolic blood pressure 75 mm[Hg] Dr. Connor Martini Work Phone: [facility] 08-01-2022 09:31-0400 Systolic blood pressure 107 mm[Hg] Dr. Connor Martini Work Phone: [facility] 07-01-2022 15:31-0400 Body mass index (BMI) [Percentile] Per age and sex 16.9 % Dr. Connor Martini Work Phone: [facility] Work Phone: 07-01-2022 15:31-0400 Body mass index (BMI) [Ratio] 18.8 kg/m2 Dr. Connor Martini Work Phone: [facility] Work Phone: 07-01-2022 15:31-0400 Body weight 57.[address] Connor Martini Work Phone: [facility] Work Phone: 07-01-2022 15:31-0400 Diastolic blood pressure 60 mm[Hg] Dr. Connor Martini Work Phone: [facility] Work Phone: 07-01-2022 15:31-0400 Systolic blood pressure 98 mm[Hg] Dr. Connor Martini Work Phone: [facility] Work Phone: 06-29-2022 02:25-0400 Diastolic blood pressure 72 mm[Hg] Dr. Connor Martini Work Phone: [facility] Work Phone: 06-29-2022 02:25-0400 Heart rate 65 /min Dr. Connor Martini Work Phone: [facility] Work Phone: 06-29-2022 02:25-0400 Respiratory rate 18 /min Dr. Connor Martini Work Phone: [facility] Work Phone: 06-29-2022 02:25-0400 SaO2% (BldA) [Mass fraction] 100 % Dr. Connor Martini Work Phone: [facility] Work Phone: 06-29-2022 02:25-0400 Systolic blood pressure 123 mm[Hg] Dr. Connor Martini Work Phone: [facility] Work Phone: 06-28-2022 23:40-0400 Body height 175.[address] Connor Martini Work Phone: [facility] Work Phone: 06-28-2022 23:40-0400 Body mass index (BMI) [Percentile] Per age and sex 12.4 % Dr. Connor Martini Work Phone: [facility] Work Phone: 06-28-2022 23:40-0400 Body mass index (BMI) [Ratio] 18.4 kg/m2 Dr. Connor Martini Work Phone: [facility] Work Phone: 06-28-2022 23:40-0400 Body temperature 101.2 [degF] Dr. Connor Martini Work Phone: [facility] Work Phone: 06-28-2022 23:40-0400 Body weight 56.[address] Connor Martini Work Phone: [facility] Work Phone: 06-15-2022 09:03-0400 Body temperature 97.7 [degF] Dr. Connor Martini Work Phone: [facility] Work Phone: 06-15-2022 09:03-0400 Diastolic blood pressure 64 mm[Hg] Dr. Connor Martini Work Phone: [facility] Work Phone: 06-15-2022 09:03-0400 Heart rate 62 /min Dr. Connor Martini Work Phone: [facility] Work Phone: 06-15-2022 09:03-0400 Respiratory rate 16 /min Dr. Connor Martini Work Phone: [facility] Work Phone: 06-15-2022 09:03-0400 SaO2% (BldA) [Mass fraction] 99 % Dr. Connor Martini Work Phone: [facility] Work Phone: 06-15-2022 09:03-0400 Systolic blood pressure 99 mm[Hg] Dr. Connor Martini Work Phone: [facility] Work Phone: 06-14-2022 04:02-0400 Body height 175.[address] Connor Martini Work Phone: [facility] Work Phone: 06-14-2022 04:02-0400 Body mass index (BMI) [Percentile] Per age and sex 27.7 % Dr. Connor Martini Work Phone: [facility] Work Phone: 06-14-2022 04:02-0400 Body mass index (BMI) [Ratio] 19.6 kg/m2 Dr. Connor Martini Work Phone: [facility] Work Phone: 06-14-2022 04:02-0400 Body weight 60.[address] Connor Martini Work Phone: [facility] Work Phone: 06-12-2022 13:16-0400 Body height 170.[address] Connor Martini Work Phone: [facility] Work Phone: 06-12-2022 13:16-0400 Body mass index (BMI) [Percentile] Per age and sex 43.1 % Dr. Connor Martini Work Phone: [facility] Work Phone: 06-12-2022 13:16-0400 Body mass index (BMI) [Ratio] 20.7 kg/m2 Dr. Connor Martini Work Phone: [facility] Work Phone: 06-12-2022 13:16-0400 Body weight 60.[address] Connor Martini Work Phone: [facility] Work Phone: 06-12-2022 13:16-0400 Diastolic blood pressure 85 mm[Hg] Dr. Connor Martini Work Phone: [facility] Work Phone: 06-12-2022 13:16-0400 Systolic blood pressure 121 mm[Hg] Dr. Connor Martini Work Phone: [facility] Work Phone: 06-06-2022 10:54-0400 Body mass index (BMI) [Percentile] Per age and sex 45.9 % Dr. Connor Martini Work Phone: [facility] Work Phone: 06-06-2022 10:54-0400 Body mass index (BMI) [Ratio] 20.9 kg/m2 Dr. Connor Martini Work Phone: [facility] Work Phone: 06-06-2022 10:54-0400 Diastolic blood pressure 62 mm[Hg] Dr. Connor Martini Work Phone: [facility] Work Phone: 06-06-2022 10:54-0400 Systolic blood pressure 100 mm[Hg] Dr. Connor Martini Work Phone: [facility] Work Phone: 06-06-2022 10:18-0400 Body weight 60.[address] Connor Martini Work Phone: [facility] Work Phone: 05-21-2022 09:42-0400 Body height 175.[address] Connor Martini Work Phone: [facility] Work Phone: 05-21-2022 09:41-0400 Body mass index (BMI) [Percentile] Per age and sex 26.6 % Dr. Connor Martini Work Phone: [facility] Work Phone: 05-21-2022 09:41-0400 Body mass index (BMI) [Ratio] 19.5 kg/m2 Dr. Connor Martini Work Phone: [facility] Work Phone: 05-21-2022 09:41-0400 Body weight [address] Connor Martini Work Phone: [facility] Work Phone: 05-21-2022 09:41-0400 Diastolic blood pressure 80 mm[Hg] Dr. Connor Martini Work Phone: [facility] Work Phone: 05-21-2022 09:41-0400 Systolic blood pressure 112 mm[Hg] Dr. Connor Martini Work Phone: [facility] Work Phone: 04-23-2022 23:12-0400 Heart rate 69 /min Dr. Connor Martini Work Phone: [facility] Work Phone: 04-23-2022 23:12-0400 SaO2% (BldA) [Mass fraction] 98 % Dr. Connor Martini Work Phone: [facility] Work Phone: 04-23-2022 22:21-0400 Body height 175.[address] Connor Martini Work Phone: [facility] Work Phone: 04-23-2022 22:21-0400 Body mass index (BMI) [Percentile] Per age and sex 20.2 % Dr. Connor Martini Work Phone: [facility] Work Phone: 04-23-2022 22:21-0400 Body mass index (BMI) [Ratio] 19 kg/m2 Dr. Connor Martini Work Phone: [facility] Work Phone: 04-23-2022 22:21-0400 Body weight 58.[address] Connor Martini Work Phone: [facility] Work Phone: 04-23-2022 22:15-0400 Diastolic blood pressure 58 mm[Hg] Dr. Connor Martini Work Phone: [facility] Work Phone: 04-23-2022 22:15-0400 Systolic blood pressure 100 mm[Hg] Dr. Connor Martini Work Phone: [facility] Work Phone: 04-23-2022 22:14-0400 Body temperature 98.1 [degF] Dr. Connor Martini Work Phone: [facility] Work Phone: 04-22-2022 11:06-0400 Body mass index (BMI) [Percentile] Per age and sex 25.5 % Dr. Connor Martini Work Phone: [facility] Work Phone: 04-22-2022 11:06-0400 Body mass index (BMI) [Ratio] 19.4 kg/m2 Dr. Connor Martini Work Phone: [facility] Work Phone: 04-22-2022 11:06-0400 Body weight 59.[address] Connor Martini Work Phone: [facility] Work Phone: 04-22-2022 11:06-0400 Diastolic blood pressure 60 mm[Hg] Dr. Connor Martini Work Phone: [facility] Work Phone: 04-22-2022 11:06-0400 Systolic blood pressure 116 mm[Hg] Dr. Connor Martini Work Phone: [facility] Work Phone: 04-22-2022 11:06-0400 Body mass index (BMI) [Ratio] 19.4 kg/m2 Dr. Connor Martini Work Phone: [facility] Work Phone: 04-22-2022 11:06-0400 Body weight 59.[address] Connor Martnii Work Phone: [facility] Work Phone: 04-22-2022 11:06-0400 Diastolic blood pressure 60 mm[Hg] Dr. Connor Martini Work Phone: [facility] Work Phone: 04-22-2022 11:06-0400 Systolic blood pressure 116 mm[Hg] Dr. Connor Martini Work Phone: [facility] Work Phone: 04-09-2022 10:29-0400 Body mass index (BMI) [Percentile] Per age and sex 16.6 % Dr. Connor Martini Work Phone: [facility] Work Phone: 04-09-2022 10:29-0400 Body mass index (BMI) [Ratio] 18.7 kg/m2 Dr. Connor Martini Work Phone: [facility] Work Phone: 04-09-2022 10:29-0400 Body weight 57.[address] Connor Martini Work Phone: [facility] Work Phone: 04-09-2022 10:29-0400 Diastolic blood pressure 62 mm[Hg] Dr. Connor Martini Work Phone: [facility] Work Phone: 04-09-2022 10:29-0400 Systolic blood pressure 106 mm[Hg] Dr. Connor Martini Work Phone: [facility] Work Phone: 04-09-2022 10:29-0400 Body mass index (BMI) [Ratio] 18.7 kg/m2 Dr. Connor Martini Work Phone: [facility] Work Phone: 04-09-2022 10:29-0400 Body weight 57.[address] Connor Martini Work Phone: [facility] Work Phone: 04-09-2022 10:29-0400 Diastolic blood pressure 62 mm[Hg] Dr. Connor Martini Work Phone: [facility] Work Phone: 04-09-2022 10:29-0400 Systolic blood pressure 106 mm[Hg] Dr. Connor Martini Work Phone: [facility] Work Phone: 04-05-2022 15:42-0400 Body height 175.[address] Connor Martini Work Phone: [facility] Work Phone: 04-05-2022 15:42-0400 Body mass index (BMI) [Percentile] Per age and sex 17.9 % Dr. Connor Martini Work Phone: [facility] Work Phone: 04-05-2022 15:42-0400 Body mass index (BMI) [Ratio] 18.8 kg/m2 Dr. Connor Martini Work Phone: [facility] Work Phone: 04-05-2022 15:42-0400 Body weight [address] Connor Martini Work Phone: [facility] Work Phone: 04-05-2022 15:39-0400 Body temperature 98 [degF] Dr. Connor Martini Work Phone: [facility] Work Phone: 04-05-2022 15:39-0400 Diastolic blood pressure 62 mm[Hg] Dr. Connor Martini Work Phone: [facility] Work Phone: 04-05-2022 15:39-0400 Heart rate 87 /min Dr. Connor Martini Work Phone: [facility] Work Phone: 04-05-2022 15:39-0400 SaO2% (BldA) [Mass fraction] 99 % Dr. Connor Martini Work Phone: [facility] Work Phone: 04-05-2022 15:39-0400 Systolic blood pressure 99 mm[Hg] Dr. Connor Martini Work Phone: [facility] Work Phone: 03-25-2022 11:21-0400 Body weight 57.[address] Connor Martini Work Phone: [facility] Work Phone: 03-25-2022 11:21-0400 Diastolic blood pressure 74 mm[Hg] Dr. Connor Martini Work Phone: [facility] Work Phone: 03-25-2022 11:21-0400 Systolic blood pressure 106 mm[Hg] Dr. Connor Martini Work Phone: [facility] Work Phone: 03-25-2022 11:21-0400 Body weight 57.[address] Connor Martini Work Phone: [facility] Work Phone: 03-25-2022 11:21-0400 Diastolic blood pressure 74 mm[Hg] Dr. Connor Martini Work Phone: [facility] Work Phone: 03-25-2022 11:21-0400 Systolic blood pressure 106 mm[Hg] Dr. Connor Martini Work Phone: [facility] Work Phone: 02-25-2022 16:11-0400 Body mass index (BMI) [Percentile] Per age and sex 12.5 % Dr. Connor Martini Work Phone: [facility] Work Phone: 02-25-2022 16:11-0400 Body mass index (BMI) [Ratio] 18.3 kg/m2 Dr. Connor Martini Work Phone: [facility] Work Phone: 02-25-2022 16:11-0400 Body weight 56.[address] Connor Martini Work Phone: [facility] Work Phone: 02-25-2022 16:11-0400 Diastolic blood pressure 60 mm[Hg] Dr. Connor Martini Work Phone: [facility] Work Phone: 02-25-2022 16:11-0400 Systolic blood pressure 100 mm[Hg] Dr. Connor Martini Work Phone: [facility] Work Phone: 02-25-2022 16:11-0400 Body height 175.[address] Connor Martini Work Phone: [facility] Work Phone: 02-25-2022 16:11-0400 Body mass index (BMI) [Ratio] 18.3 kg/m2 Dr. Connor Martini Work Phone: [facility] Work Phone: 02-25-2022 16:11-0400 Body weight 56.[address] Connor Martini Work Phone: [facility] Work Phone: 02-25-2022 16:11-0400 Diastolic blood pressure 60 mm[Hg] Dr. Connor Martini Work Phone: [facility] Work Phone: 02-25-2022 16:11-0400 Systolic blood pressure 100 mm[Hg] Dr. Connor Martini Work Phone: [facility] Work Phone: 01-28-2022 15:49-0400 Body height 175.[address] Connor Martini Work Phone: [facility] Work Phone: 01-28-2022 15:49-0400 Body mass index (BMI) [Ratio] 17.4 kg/m2 Dr. Connor Martini Work Phone: [facility] Work Phone: 01-28-2022 15:49-0400 Body weight 53.[address] Connor Martini Work Phone: [facility] Work Phone: 01-28-2022 15:49-0400 Diastolic blood pressure 62 mm[Hg] Dr. Connor Martini Work Phone: [facility] Work Phone: 01-28-2022 15:49-0400 Systolic blood pressure 106 mm[Hg] Dr. Connor Martini Work Phone: [facility] Work Phone: 01-01-2022 12:19-0500 Body mass index (BMI) [Ratio] 17.5 kg/m2 Dr. Connor Martini Work Phone: [facility] Work Phone: 01-01-2022 12:19-0500 Body weight 53.[address] Connor Martini Work Phone: [facility] Work Phone: 01-01-2022 12:19-0500 Diastolic blood pressure 70 mm[Hg] Dr. Connor Martini Work Phone: [facility] Work Phone: 01-01-2022 12:19-0500 Systolic blood pressure 104 mm[Hg] Dr. Connor Martini Work Phone: [facility] Work Phone: 12-19-2021 10:32-0500 Body mass index (BMI) [Ratio] 17.6 kg/m2 Dr. Connor Martini Work Phone: [facility] Work Phone: 12-19-2021 10:32-0500 Body weight 54.[address] Connor Martini Work Phone: [facility] Work Phone: 12-19-2021 10:32-0500 Diastolic blood pressure 70 mm[Hg] Dr. Connor Martini Work Phone: [facility] Work Phone: 12-19-2021 10:32-0500 Systolic blood pressure 118 mm[Hg] Dr. Connor Martini Work Phone: [facility] Work Phone: 12-12-2021 13:41-0500 Body mass index (BMI) [Ratio] 17.7 kg/m2 Dr. Connor Martini Work Phone: [facility] Work Phone: 12-12-2021 13:41-0500 Body weight 54.[address] Connor Martini Work Phone: [facility] Work Phone: 12-12-2021 13:41-0500 Diastolic blood pressure 60 mm[Hg] Dr. Connor Martini Work Phone: [facility] Work Phone: 12-12-2021 13:41-0500 Systolic blood pressure 104 mm[Hg] Dr. Connor Martini Work Phone: [facility] Work Phone: 09-18-2021 15:25-0500 Diastolic blood pressure 60 mm[Hg] CYDNEY WONG MD [facility] 09-18-2021 15:25-0500 Heart rate 71 /min CYDNEY WONG MD [facility] 09-18-2021 15:25-0500 Reason For Taking VItal Signs CYDNEY WONG MD [facility] 09-18-2021 15:25-0500 Respiratory rate 16 /min CYDNEY WONG MD [facility] 09-18-2021 15:25-0500 Systolic blood pressure 102 mm[Hg] CYDNEY WONG MD [facility] 09-18-2021 14:05-0500 Diastolic blood pressure 57 mm[Hg] CYDNEY WONG MD [facility] 09-18-2021 14:05-0500 Heart rate 74 /min CYDNEY WONG MD [facility] 09-18-2021 14:05-0500 Reason For Taking VItal Signs CYDNEY WONG MD [facility] 09-18-2021 14:05-0500 Respiratory rate 16 /min CYDNEY WONG MD [facility] 09-18-2021 14:05-0500 Systolic blood pressure 98 mm[Hg] CYDNEY WONG MD [facility] 09-18-2021 13:03-0500 Body temperature 98.24 [degF] CYDNEY WONG MD [facility] 09-18-2021 13:03-0500 Body weight 50.8 kg CYDNEY WONG MD [facility] 09-18-2021 13:03-0500 Diastolic blood pressure 71 mm[Hg] CYDNEY WONG MD [facility] 09-18-2021 13:03-0500 Heart rate 86 /min CYDNEY WONG MD [facility] 09-18-2021 13:03-0500 Respiratory rate 16 /min CYDNEY WONG MD [facility] 09-18-2021 13:03-0500 Systolic blood pressure 105 mm[Hg] CYDNEY WONG MD [facility] [place] Encounters Encounter Date Encounter Type Care Provider Facility Start: 05-31-2025 End: 05-31-2025 ambulatory Akiko Maynard PT [facility] Comment on above: Acute left ankle maurice n (Primary Dx); Closed fracture of head of metatarsal bone of left foot, initial encounter; Nondisplaced fracture of proximal phalanx of left great toe, initial encounter for closed fracture; Pain in left foot Start: 05-10-2025 End: 05-10-2025 Emergency department patient visit Dr. Florentin Toribio DO Work Phone: -Emergency Department Work Phone: Start: 05-10-2025 End: 05-10-2025 Patient encounter procedure Kevin PALACIO Work Phone: [facility] Comment on above: Procedure not marin d out (Primary Dx) Start: 05-10-2025 End: 05-10-2025 ambulatory CONNOR A MALYS Facility:[facility] Start: 05-09-2025 End: 05-10-2025 Follow-up encounter Anthony Cook APRN.CNP Work Phone: [facility] Start: 05-09-2025 End: 05-09-2025 Patient encounter procedure Anthony Cook APRN.CNP Work Phone: [facility] Comment on above: Abnormal uterine ble eding (AUB) (Primary Dx) Start: 05-09-2025 End: 05-09-2025 ambulatory CONNOR A MALYS Facility:[facility] Start: 04-29-2025 End: 04-29-2025 Office outpatient new 30 minutes Isaura Lopez APRN.DRAPERY CUTTER MACHINE Work Phone: [facility] Comment on above: Closed fracture of h ead of metatarsal bone of left foot, initial encounter (Primary Dx); Acute left ankle pain; Nondisplaced fracture of proximal phalanx of left great toe, initial encounter for closed fracture; Pain in left foot Start: 04-29-2025 End: 04-29-2025 ambulatory ISAURA LOPEZ Facility:[facility] Start: 04-29-2025 End: 04-29-2025 Subsequent hospital visit by physician Xr [facility] Comment on above: Acute left ankle maurice n [M25.572] Start: 04-21-2025 End: 04-22-2025 Emergency department patient visit CONNOR Lira VINI Facility:[facility] Start: 03-24-2025 End: 03-25-2025 Emergency department patient visit Dr. Florentin Toribio DO Work Phone: -Emergency Department Work Phone: Start: 02-10-2025 End: 02-11-2025 Emergency department patient visit Dr. Florentin Toribio DO Work Phone: -Emergency Department Work Phone: Start: 01-13-2025 End: 01-13-2025 ambulatory DORI JOHNSON Facility:[facility] Start: 01-13-2025 End: 01-13-2025 Patient encounter procedure Dori Johnson PA-C Work Phone: [facility] Comment on above: Mastodynia (Primary Dx); Bilateral fibrocystic breast changes; Family history of breast cancer Start: 01-12-2025 End: 01-12-2025 Telephone encounter Dori Johnson PA-C Work Phone: [facility] Comment on above: Appointment; Care Co ordinator - Other Start: 12-08-2024 End: 12-09-2024 Refill Lynnette Burk DO Work Phone: [facility] Comment on above: Refill Request Start: 12-07-2024 End: 12-07-2024 Telephone encounter Anthony Cook APRN.CNP Work Phone: [facility] Comment on above: Patient Question Start: 11-29-2024 End: 11-29-2024 Emergency department patient visit Dr. Wagner Frias DO -Emergency Department Work Phone: Start: 11-18-2024 End: 11-18-2024 ambulatory CONNOR Soraya MARTINI [facility] Start: 11-18-2024 End: 11-18-2024 Patient encounter procedure Monty Rivera MD Work Phone: [facility] Comment on above: care and examination (Primary Dx) Start: 11-09-2024 End: 11-10-2024 ambulatory CONNOR A VINI [facility] Start: 11-05-2024 End: 11-05-2024 Encounter Connor Martini DO Work Phone: [facility] Start: 11-04-2024 End: 11-04-2024 Encounter Connor Martini DO Work Phone: [facility] Start: 10-21-2024 End: 10-21-2024 ambulatory CONNOR Soraya MARTINI Facility[facility] [place] 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 Follow Up Start: 10-05-2024 End: 10-05-2024 Patient encounter procedure Us Rm1 Surveyor Helper [employer] Work Phone: [facility] Comment on above: Supervision of high risk in third trimester (Primary Dx); premature rupture of membranes (PPROM) with unknown onset of labor Start: 10-05-2024 End: 10-05-2024 ambulatory CONNOR Soraya MARTINI [facility] Start: 10-03-2024 Evaluation and management of inpatient PRAVEEN ZAVALA Facility:[place] [facility] Start: 09-30-2024 End: 09-30-2024 Telephone encounter Fernanda Rebolledo Ob L[facility] Work Phone: [place] [id number] Start: 09-28-2024 End: 09-28-2024 ambulatory CONNOR MARTINI [facility] Start: 09-28-2024 End: 09-28-2024 ambulatory ANTHONY COOK [facility] Start: 09-28-2024 End: 09-28-2024 Patient encounter procedure Us Rm1 Surveyor [employer] Work Phone: [facility] Comment on above: 32 weeks gestation o f (Primary Dx); Encounter for supervision of high risk young multigravida, antepartum; History of prior with IUGR ; History of delivery, currently Supervision of high risk in third trimester (Primary Dx); Anemia, unspecified type; related nausea, antepartum; Previous baby with growth restriction Start: 09-21-2024 End: 09-21-2024 ambulatory CONNOR Soraya MARTINI [facility] Start: 09-21-2024 End: 09-21-2024 Office outpatient visit 25 minutes Priti Montiel DO Work Phone: [facility] Comment on above: Supervision of high risk in third trimester (Primary Dx); Bacterial vaginosis in ; History of delivery; contractions Start: 09-21-2024 End: 09-21-2024 ambulatory CONNOR A VNII [facility] Start: 09-20-2024 End: 09-20-2024 ambulatory Fernanda Watson Ob L&D Work Phone: [facility] Comment on above: [employer] Time to Blanca varmae Start: 09-20-2024 End: 09-20-2024 E-mail encounter from caregiver Fernanda Watson Ob L&D Work Phone: [facility] Start: 09-17-2024 End: 09-17-2024 ambulatory CONNOR A MALYS [facility] Start: 09-16-2024 End: 09-16-2024 Telephone encounter Lucy Toribio Kati DO Work Phone: [place] [facility] Start: 09-15-2024 End: 09-16-2024 ambulatory MARIE VENESSA [facility] Start: 09-14-2024 End: 09-15-2024 ambulatory CONNOR A MALYS [facility] Start: 09-14-2024 End: 09-14-2024 Office outpatient visit 25 minutes Priti Montiel DO Work Phone: [facility] Comment on above: Seizure (HCC) (Prima ry Dx); Abdominal pain affecting ; Supervision of high risk in third trimester Start: 09-14-2024 End: 09-14-2024 ambulatory CONNOR A MALYS [facility] Start: 09-13-2024 End: 09-13-2024 ambulatory CONNOR A MALYS [facility] Start: 09-12-2024 End: 09-12-2024 ambulatory Akiko Bowling Facility:[facility] Start: 09-04-2024 End: 09-04-2024 ambulatory CONNOR A MALYS Facility:[facility] Start: 09-04-2024 End: 09-04-2024 Office outpatient visit 15 minutes Jessica Whitman PA-C Work Phone: [facility] Comment on above: Dentalgia (Primary D x) Start: 09-01-2024 End: 09-01-2024 Telephone encounter Anthony Cook APRN.DRAPERY CUTTER MACHINE Work Phone: [facility] Comment on above: Orders (Breast pump prescription) Start: 09-01-2024 End: 09-01-2024 ambulatory CONNOR A MALYS [facility] [facility] Start: 09-01-2024 End: 09-01-2024 Patient encounter procedure Us Rm3 Surveyor Helper [employer] Work Phone: [facility] Comment on above: POTS (postural ortho static tachycardia syndrome) (Primary Dx); History of delivery, currently ; 28 weeks gestation of Start: 08-31-2024 End: 08-31-2024 Patient encounter procedure Anthony Cook APRN.DRAPERY CUTTER MACHINE Work Phone: [facility] Comment on above: Supervision of high risk in third trimester (Primary Dx); Previous baby with growth restriction Start: 08-31-2024 End: 08-31-2024 ambulatory CONNOR A MALYS [facility] [facility] Start: 08-22-2024 End: 08-22-2024 Orders Only Rj Linares MD Work Phone: [place] [facility] Start: 08-17-2024 End: 08-17-2024 Patient encounter procedure Anthony Cook APRN.DRAPERY CUTTER MACHINE Work Phone: [facility] Comment on above: Encounter for superv ision of high risk young multigravida, antepartum (Primary Dx); Encounter for suspected premature rupture of amniotic membranes, with rupture of membranes not found; History of prior with IUGR ; History of delivery, currently ; growth restriction antepartum; Abdominal pain affecting ; Vaginal bleeding in , second trimester Start: 08-17-2024 End: 08-17-2024 ambulatory CONNOR A MALYS [facility] Start: 08-01-2024 End: 08-01-2024 ambulatory Etelvina Cheshire Facility:[facility] Start: 07-30-2024 End: 07-30-2024 Patient encounter procedure Us Rm2 Surveyor Helper [employer] Work Phone: [facility] Comment on above: History of d elivery, currently (Primary Dx); 23 weeks gestation of Start: 07-30-2024 End: 07-30-2024 ambulatory CONNOR A MALYS [facility] Start: 07-28-2024 End: 07-29-2024 ambulatory CONNOR A MALYS [facility] Start: 07-21-2024 End: 07-21-2024 ambulatory CONNOR A MALYS Facility:[facility] Start: 07-21-2024 End: 07-21-2024 Office outpatient visit 15 minutes Priti Mitchellrob GUO Work Phone: [facility] Comment on above: Encounter for superv ision of high risk young multigravida, antepartum (Primary Dx); Seizure (HCC); Abdominal cramping; History of delivery, currently ; Hx of impaired glucose tolerance; growth restriction antepartum Start: 07-17-2024 End: 07-17-2024 Telephone encounter Rj Linares MD Work Phone: [facility] Comment on above: Returning Patient's Call Start: 07-16-2024 End: 07-16-2024 Telephone encounter Sctot Hoang MD Work Phone: [facility] Comment on above: Patient Question Start: 07-15-2024 End: 07-15-2024 Patient encounter procedure Us Rm2 Surveyor Helper [employer] Mfm Work Phone: [facility] Comment on above: Hx of delive ry, currently , second trimester (Primary Dx); Poor growth affecting management of mother in second trimester, single or unspecified fetus Start: 07-15-2024 End: 07-15-2024 ambulatory CONNOR A VINI Facility:[facility] Start: 07-14-2024 End: 07-15-2024 Emergency department patient visit CAMILLA DUNHAM [facility] Start: 07-11-2024 End: 07-11-2024 Emergency department patient visit Godwin Hutchinson Facility:[facility] Start: 07-11-2024 End: 07-11-2024 [facility] Start: 07-11-2024 End: 07-11-2024 Patient encounter procedure Tesfaye Connell MD Work Phone: [facility] Comment on above: Great toe pain, left (Primary Dx) Start: 07-02-2024 Telephone encounter Maria Guadalupe toribio MD Work Phone: 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); Monoallelic mutation of TNNT2 gene; History of ; Palpitations; RBBB (right bundle branch block) Maternal congenital cardiac anomaly complicating (Primary Dx); 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; POTS (postural orthostatic tachycardia syndrome); Seizure (HCC); History of delivery, currently Start: 06-30-2024 End: 06-30-2024 ambulatory MATTHIAS GONZALEZ Facility:[facility] Start: 06-29-2024 End: 06-29-2024 Telephone encounter Barbie Orellana RN Maternal Medic [facility]e Start: 06-24-2024 End: 06-24-2024 ambulatory CONNOR MARTINI Facility:[facility] Start: 06-24-2024 End: 06-24-2024 Office outpatient visit 15 minutes Scott Hoang MD Work Phone: [facility] Comment on above: Encounter for superv ision of high risk young multigravida, antepartum (Primary Dx); growth restriction antepartum; POTS (postural orthostatic tachycardia syndrome); History of delivery, currently ; 18 weeks gestation of Start: 06-24-2024 End: 06-24-2024 ambulatory JOSE A RAMIREZ [facility] Start: 06-24-2024 End: 06-24-2024 Patient encounter procedure Us Rm3 Surveyor Helper Ag Mfm Work Phone: [facility] Maternal Medicine Comment on above: Poor growth af fecting management of mother in second trimester, single or unspecified fetus (Primary Dx); History of delivery, currently ; 18 weeks gestation of Start: 06-22-2024 Telephone encounter Scott Ray MD Work Phone: [facility] Comment on above: Patient Question Start: 06-12-2024 End: 06-13-2024 ambulatory CONNOR A MALYS [facility] Start: 06-09-2024 End: 06-09-2024 ambulatory CONNOR A MALYS [facility] Start: 06-09-2024 End: 06-09-2024 Patient encounter procedure Us Rm1 Surveyor Helper Ag Mfm Work Phone: [facility] Maternal Medicine Comment on above: History of d elivery, currently (Primary Dx) Start: 06-05-2024 End: 06-05-2024 ambulatory CONNOR A MALYS [facility] Start: 05-26-2024 End: 05-26-2024 Office outpatient visit 25 minutes [facility] Ag Surveyor Helper Kaycee Work Phone: [facility] Comment on above: Nontoxic single thyr oid nodule (Primary Dx); Seizure (HCC); Hx of impaired glucose tolerance; History of delivery, currently ; Encounter for supervision of high risk young multigravida, antepartum; 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; Headache in , second trimester Start: 05-26-2024 End: 05-26-2024 ambulatory CONNOR A MALYS [facility] Start: 05-24-2024 End: 05-24-2024 ambulatory CONNOR A MALYS [facility] Start: 05-19-2024 End: 05-19-2024 Emergency department patient visit CONNOR A MALYS Facility:[facility] Start: 05-19-2024 Orders Only Alejandrina vera DO Work Phone: Cardiology Comment on above: SOB (shortness of br eath) (Primary Dx) Start: 05-18-2024 Telephone encounter Moy Lund RN [facility] Maternal Medicine Comment on above: [employer] Floorperson - O ther (COB intro/intake) Start: 05-17-2024 E-mail encounter fro m caregiver Moy Lund RN [facility] Maternal Medicine Start: 05-17-2024 Patient encounter procedure Moy Lnud RN [facility] Maternal Medicine Comment on above: Cardio-OB Clinic Start: 05-17-2024 Telephone encounter Moy Lund RN [facility] Maternal Medicine Comment on above: Appointment (COB) Start: 05-12-2024 End: 05-13-2024 Emergency department patient visit LOU GRIFFINElfego Facility:[facility] Start: 05-12-2024 Telephone encounter Marin naqvi MD Work Phone: [facility] Comment on above: Appointment Start: 05-11-2024 End: 05-11-2024 Patient encounter procedure Anay Nagy MD Work Phone: Maternal Medicine Comment on above: Encounter for jyoti goel screening for malformation using ultrasound (Primary Dx); 12 weeks gestation of Start: 05-09-2024 End: 05-09-2024 Emergency department patient visit CONNOR MARTINI Facility:[facility] Start: 05-07-2024 Telephone encounter Barbie Orellana RN Maternal Medicine Comment on above: [employer] Floorperson - O ther; Initial intake Start: 05-05-2024 End: 05-05-2024 Patient encounter procedure Johnna Vaughan MD Work Phone: OB/Gynecology Comment on above: Encounter for superv ision of normal first in first trimester (Primary Dx); 11 weeks gestation of ; Contamination of urine culture Start: 04-27-2024 Emergency department patient visit CONNOR MARTINI Facility:[facility] Start: 04-27-2024 End: 04-27-2024 ambulatory ETELVINA HAYES [facility] Start: 04-26-2024 End: 04-26-2024 Patient encounter procedure Us Rm1 Surveyor Helper Ag Mfm Work Phone: [facility] Maternal Medicine Comment on above: Wants antepartum ult rasound in first trimester (Primary Dx); Abdominal pain during in first trimester 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 ( Primary Dx); History of delivery, currently ; Abdominal pain during in first trimester Start: 04-15-2024 Telephone encounter Moy Lund RN [facility] Maternal Medicine Comment on above: Appointment Start: 04-14-2024 Telephone encounter Tesfaye Ibanez Pal rst DO Work Phone: Endocrinology Comment on above: Appointment Start: 04-13-2024 End: 04-13-2024 Nursing evaluation of patient and report Camilla Navarro RN Work Phone: Diabetic Education [facility] Comment on above: Encounter for superv ision of high risk young multigravida, antepartum; Other pre-existing diabetes mellitus during , antepartum; Nontoxic single thyroid nodule Start: 04-13-2024 Telephone encounter Akiko carey PA-C Work Phone: Obstetrics/Gynecology Comment on above: Patient Update Start: 04-08-2024 E-mail encounter fro m caregiver Fernanda Fv Ob L&D Work Phone: OB/Gynecology Start: 04-08-2024 Patient encounter procedure Fernanda Watson Ob L&D Work Phone: OB/Gynecology Comment on above: M-Power Referral Start: 04-07-2024 End: 04-07-2024 Patient encounter procedure Akiko Tomlin PA-C Work Phone: Obstetrics/Gynecology Comment on above: Encounter for superv ision of high risk young multigravida, antepartum (Primary Dx); with uncertain viability, single or unspecified fetus; History of prior with small for gestational age ; History of prior with IUGR ; History of delivery, currently ; History of premature rupture of membranes; History of ; History of toxoplasmosis; Other pre-existing diabetes mellitus during , antepartum; Other cardiomyopathy (HCC); History of laparotomy; Brugada syndrome; Seizure (HCC); Nontoxic single thyroid nodule Start: 04-07-2024 End: 04-07-2024 ambulatory CONNOR MARTINI Facility:[facility] Start: 04-06-2024 ambulatory No Pcp OVERHEAD CRANE INSPECTOR Obstetrics /Gynecology Start: 04-06-2024 E-mail encounter rosemarie m caregiver No Pcp OVERHEAD CRANE INSPECTOR Obstetrics/Gynecology Start: 03-31-2024 End: 03-31-2024 ambulatory CONNORSoraya MARTINI [facility] Start: 03-28-2024 End: 03-29-2024 Emergency department patient visit CONNOR MARTINI Facility:[facility] Start: 03-28-2024 End: 03-28-2024 Emergency department patient visit CONNRO [facility] Start: 03-28-2024 End: 03-28-2024 Emergency department patient visit Randal Anusha Rivera DO Work Phone: [facility] Comment on above: Abdominal pain durin g in first trimester (Primary Dx) Start: 03-23-2024 End: 03-23-2024 Patient encounter procedure Praveen Gray PA-C Work Phone: [facility] Comment on above: Sore throat (Primary Dx) Start: 03-17-2024 End: 03-17-2024 Evaluation and management of inpatient Brian Golden MD Work Phone: [facility] Start: 03-17-2024 Telephone encounter Beryl conde MD Work Phone: [facility] Start: 03-17-2024 End: 03-17-2024 Evaluation and management of inpatient [facility] Start: 03-17-2024 End: 03-17-2024 Evaluation and management of inpatient Jarek James Nesheim DO Work Phone: [facility] Comment on above: Left lower quadrant pain (Primary Dx); Cystitis; Corpus luteum cyst of left ovary; Tubal ectopic , unspecified laterality, unspecified whether intrauterine present; Postop check Start: 03-09-2024 End: 03-09-2024 Emergency department patient visit DR BE STALLINGS MD Facility:[facility] Start: 03-09-2024 End: 03-09-2024 Emergency department patient visit DR BE STALLINGS MD [facility] Start: 03-01-2024 End: 03-01-2024 Patient encounter procedure Yusra Chetemily REICH Work Phone: Dermatology [facility] Comment on above: Rash and nonspecific skin eruption (Primary Dx) Start: 11-21-2023 End: 11-21-2023 Emergency department patient visit Dr. Florentin Toribio Work Phone: [facility] Work Phone: Start: 10-22-2023 End: 10-22-2023 ambulatory VICTORINO ALAMO [facility] Start: 10-09-2023 End: 10-09-2023 ambulatory RIKA OSORIO [facility] Start: 10-01-2023 End: 10-01-[address] Florentin Toribio Work Phone: [facility] Work Phone: Start: 10-01-2023 End: 10-01-[address] Florentin Toribio Work Phone: [facility] Work Phone: Start: 08-31-2023 End: 08-31-2023 Emergency department patient visit Dr. Florentin Toribio Work Phone: [facility] Work Phone: Start: 08-07-2023 End: 08-07-[address] Florentin Toribio Work Phone: [facility] Work Phone: Start: 07-30-2023 E-mail encounter fro m caregiver Etelvina Campos LPN Work Phone: [facility] Start: 07-30-2023 Patient encounter procedure Etelvina Campos LPN Work Phone: [facility] Comment on above: Dr.Valente katja wilson Start: 07-29-2023 Telephone encounter Etelvina oneill LPN Work Phone: [facility] Comment on above: Appointment Start: 07-28-2023 End: 07-28-2023 Patient encounter procedure Wagner Conte MD Work Phone: General Surgery Comment on above: Mastodynia (Primary Dx) Start: 07-24-2023 End: 07-24-2023 ambulatory [facility] Start: 07-15-2023 End: 07-15-2023 Patient encounter procedure Wagner Conte MD Work Phone: General Surgery Comment on above: Mastodynia (Primary Dx); Breast abscess Start: 06-09-2023 End: 06-09-2023 Emergency department patient visit [facility] Work Phone: Start: 06-03-2023 End: 06-03-2023 Emergency department patient visit DR ELLYN DWYER MD Facility:[facility] Start: 05-06-2023 End: 05-06-2023 Subsequent hospital visit by physician [facility] Work Phone: Radiology Comment on above: Acute pain of left s hozeke [M25.512] Start: 05-06-2023 End: 05-06-2023 Office outpatient visit 15 minutes Yoel Guzmán APRN.DRAPERY CUTTER MACHINE Work Phone: [facility] Comment on above: Acute pain of left s jamal (Primary Dx) Start: 05-06-2023 Telephone encounter Yoel caruso APRN.DRAPERY CUTTER MACHINE Work Phone: [facility] Comment on above: Results Start: 05-05-2023 End: 05-05-2023 Patient encounter procedure Wagner Conte MD Work Phone: General Surgery Comment on above: Mastodynia (Primary Dx) Start: 04-27-2023 End: 04-27-2023 Emergency department patient visit [facility] Start: 04-09-2023 End: 04-09-2023 ambulatory [facility] Work Phone: Start: 04-09-2023 End: 04-09-2023 Patient encounter procedure [facility] Start: 04-03-2023 End: 04-03-2023 ambulatory [facility] Work Phone: Start: 04-03-2023 End: 04-03-2023 [facility] Start: 03-10-2023 End: 03-11-2023 [facility] Start: 03-04-2023 End: 03-05-2023 [facility] Start: 01-20-2023 Refill Mer Goldman APRN.DRAPERY CUTTER MACHINE Work Phone: [facility] Comment on above: Med Change Request Start: 01-20-2023 Telephone encounter Hallie Torres APRN.DRAPERY CUTTER MACHINE Work Phone: [facility] Comment on above: Results Start: 01-19-2023 End: 01-19-2023 Patient encounter procedure Mer Bardales APRN.DRAPERY CUTTER MACHINE Work Phone: [facility] Comment on above: Sore throat (Primary Dx); Viral URI Start: 12-26-2022 End: 12-26-2022 Emergency department patient visit [facility] Start: 12-26-2022 End: 12-26-2022 Emergency department patient visit DR TAMMY SNIDER MD [facility] Start: 12-24-2022 End: 12-25-2022 Emergency department patient visit TENZINDALIA SHERIDAN [facility] Start: 12-12-2022 Telephone encounter Jennifer lee RN Work Phone: Otolaryngology Comment on above: Patient Update Start: 12-10-2022 End: 12-10-2022 [facility] Start: 12-10-2022 End: 12-10-2022 Emergency department patient visit Dr. Connor Martini Work Phone: [facility]Emergency Department Start: 12-07-2022 End: 12-07-2022 [facility] Start: 12-06-2022 End: 12-06-2022 Patient encounter procedure Kevin PALACIO Work Phone: [facility] Comment on above: Dental infection (Pr imary Dx); Throat pain Start: 11-15-2022 End: 11-15-[address] Connor Martini Work Phone: [facility] Work Phone: Start: 11-15-2022 End: 11-15-[address] Connor Martini Work Phone: [facility]-Laboratory Start: 11-12-2022 End: 11-12-[address] Connor Martini Work Phone: [facility] Work Phone: Start: 11-12-2022 End: 11-12-[address] Connor Martini Work Phone: [facility] Start: 11-06-2022 End: 11-06-[address] Connor Martini Work Phone: [facility] Work Phone: Start: 11-06-2022 End: 11-06-[address] Connor Martini Work Phone: [facility]-Laboratory, OP Pavilion Start: 11-03-2022 End: 11-03-2022 Emergency department patient visit Dr. Connor Martini Work Phone: [facility]Emergency Department Start: 10-14-2022 End: 10-14-2022 Emergency department patient visit TENZIN SHERIDAN DO [facility] Start: 10-14-2022 End: 10-14-2022 Emergency department patient visit Dr. Connor Martini Work Phone: [facility] Start: 09-13-2022 End: 09-13-2022 Patient encounter procedure Sonam Guadalupe PA-C Work Phone: General Surgery Comment on above: Breast abscess (Prim shahab Dx) Start: 09-10-2022 End: 09-10-2022 Subsequent hospital visit by physician Xr [facility] Work Phone: Radiology Comment on above: Acute cough [R05.1] Start: 09-10-2022 End: 09-10-2022 Patient encounter procedure Yoel Guzmán APRN.CNP Work Phone: [facility] Comment on above: Acute cough (Primary Dx); Pharyngitis, unspecified etiology; Suspected COVID-19 virus infection Start: 09-06-2022 End: 09-06-2022 Patient encounter procedure Wagner Conte MD Work Phone: General Surgery Comment on above: Breast abscess (Prim shahab Dx) Start: 09-03-2022 End: 09-03-2022 Patient encounter procedure Wagner Conte MD Work Phone: General Surgery Comment on above: Breast abscess (Prim shahab Dx) Start: 09-03-2022 End: 09-03-[address] Connor Martini Work Phone: [facility] Work Phone: Start: 09-03-2022 End: 09-03-[address] Connor Martini Work Phone: [facility]Outpatient Pavilion Ultrasound Start: 09-02-2022 End: 09-02-2022 Patient encounter procedure Wagner Conte MD Work Phone: General Surgery Comment on above: Breast abscess (Prim shahab Dx) Start: 08-27-2022 End: 09-09-[address] Connor Martini Work Phone: [facility] Work Phone: Start: 08-27-2022 End: 09-09-[address] Connor Martini Work Phone: [facility] Start: 08-27-[address] Connor Martini [facility] Start: 08-23-2022 End: 08-23-2022 Patient encounter procedure Sonam Guadalupe PA-C Work Phone: General Surgery Comment on above: Breast abscess (Prim shahab Dx) Start: 08-22-2022 End: 08-22-[address] Connor Martini Work Phone: [facility] Start: 08-22-2022 Non-patient / Non-visit Dr. Lis Martini Work Phone: [facility] Start: 08-21-2022 Telephone encounter Wagner torres MD Work Phone: General Surgery Comment on above: Appointment Start: 08-21-2022 Non-patient / Non-visit Dr. Lis Martini Work Phone: [facility] Start: 08-20-2022 Non-patient / Non-visit Dr. Lis Martini Work Phone: [facility] Start: 08-19-2022 Non-patient / Non-visit Dr. Lis Martini Work Phone: [facility] Start: 08-18-2022 End: 08-21-2022 Evaluation and management of inpatient Dr. Connor Martini [facility] Start: 08-18-2022 End: 08-21-2022 Non-patient / Non-visit Dr. Connor Martini Work Phone: [facility] Start: 08-18-2022 Evaluation and management of inpatient Dr. Connor Martini [facility] Start: 08-18-2022 End: 08-18-2022 Patient encounter procedure Yoel Guzmán APRN.CNP Work Phone: [facility] Comment on above: Breast infection in female (Primary Dx) Start: 08-06-2022 End: 08-06-2022 Emergency department patient visit Dr. Connor Martini [facility] Start: 08-05-2022 End: 08-05-2022 Emergency department patient visit Dr. Connor Martini [facility] Start: 08-01-2022 End: 08-01-[address] Connor Martini Work Phone: [facility] Start: 07-01-2022 End: 07-01-[address] Connor aMrtini Work Phone: [facility] Start: 06-28-2022 End: 06-29-2022 Emergency department patient visit Dr. Connor Martini [facility] Start: 06-15-2022 Non-patient / Non-visit Dr. Lis Martini Work Phone: [facility] Start: 06-14-2022 End: 06-15-2022 Evaluation and management of inpatient Dr. Connor Martini Work Phone: [facility] Start: 06-12-2022 End: 06-12-[address] Connor Martini Work Phone: [facility] Start: 06-06-2022 End: 06-06-[address] Connor Martini Work Phone: [facility] Start: 05-28-2022 End: 05-28-[address] Connor Martini [facility] Start: 05-21-2022 End: 05-21-[address] Connor Martini Work Phone: [facility] Start: 04-26-2022 Non-patient / Non-visit Dr. Lis Martini Work Phone: [facility] Start: 04-23-2022 End: 04-23-[address] Connor Martini Work Phone[facility] Start: 04-22-2022 End: 04-22-[address] Connor Martini Work Phone: [facility] Start: 04-09-2022 Non-patient / Non-visit Dr. Lis Martini Work Phone: [facility] Start: 04-09-2022 End: 04-09-[address] Connor Martini Work Phone: [facility] Start: 04-05-2022 End: 04-05-[address] Connor Martini Work Phone: [facility], Outpatients Start: 03-28-2022 End: 03-28-[address] Connor Martini Work Phone: [facility] Ultrasound Start: 03-26-2022 End: 03-26-[address] Connor Martini Work Phone: [facility]-Physical Therapy Start: 03-25-2022 End: 03-25-[address] Connor Martini Work Phone: [facility] Start: 02-25-2022 End: 02-25-[address] Connor Martini Work Phone: [facility] Start: 02-08-2022 End: 02-08-[address] Connor Martini Work Phone: [facility] Start: 01-28-2022 End: 01-28-[address] Connor Martini [facility] Start: 01-01-2022 End: 01-01-[address] Connor Martini [facility] Start: 12-19-2021 End: 12-19-[address] Connor Martini Work Phone: [facility] Start: 12-14-2021 End: 12-14-[address] Connor Martini [facility] Start: 12-12-2021 End: 12-12-[address] Connor Martini [facility] Start: 12-06-2021 Non-patient / Non-visit Dr. Lis Martini Work Phone: [facility] Start: 11-30-2021 End: 11-30-[address] Connor Martini [facility] Start: 10-20-[address] Connor Martini [facility] Start: 09-18-2021 End: 09-18-2021 Emergency department patient visit CYDNEY WONG MD [facility] Start: 09-09-2014 End: 04-26-2024 Patient encounter status Yoel Guzmán OVERHEAD CRANE INSPECTOR.DRAPERY CUTTER MACHINE Work Phone: [facility] Work Phone: Procedures Date Procedure Procedure Detail Performing Clinician Start: 05-09-2025 Blood count complete automated Anthony Cook OVERHEAD CRANE INSPECTOR.DRAPERY CUTTER MACHINE Work Phone: Start: 05-09-2025 UA DIP,URINE HCG (POC) Anthony Cook OVERHEAD CRANE INSPECTOR.DRAPERY CUTTER MACHINE Work Phone: Start: 04-29-2025 Radex ankle complete minimum 3 views Isaura Lopez OVERHEAD CRANE INSPECTOR.DRAPERY CUTTER MACHINE Work Phone: Start: 03-25-2025 X-ray of ankle, thre e or more views Dr. Florentin Toribio DO Work Phone: Start: 03-25-2025 X-ray of foot, three or more views Dr. Florentin Toribio DO Work Phone: Start: 02-10-2025 X-ray of foot, three or more views Dr. Florentin Toribio DO Work Phone: Start: 10-05-2024 Us preg uterus after 1st trimest 11/10 gestation Derick Lebron MD Work Phone: Start: 10-03-2024 Antibody screen CONNOR DALAL RUTH Comment on above: Order Comment: Speci men Type: BLOOD SPECIMEN Ordering Facility: [facility] Address: [address] [place] [address] Performed By: #### T SPN #### [facility] CLIA [id number] [address] [place] [address] [place] Start: 09-28-2024 Urnls dip stick/tabl et rgnt auto w/o microscopy Anthony Cook OVERHEAD CRANE INSPECTOR.DRAPERY CUTTER MACHINE Work Phone: Start: 09-28-2024 RSV VACCINE, BIVALEN T (ABRYSVO) Anthony Cook OVERHEAD CRANE INSPECTOR.DRAPERY CUTTER MACHINE Work Phone: Start: 09-28-2024 Us preg uterus after 1st trimest 11/10 gestation Anthony Cook OVERHEAD CRANE INSPECTOR.DRAPERY CUTTER MACHINE Work Phone: Start: 09-21-2024 Urnls dip stick/tabl et rgnt auto w/o microscopy Priti Montiel DO Work Phone: Start: 09-15-2024 Antibody screen CONNOR MULUGETA MIRANDA Comment on above: Order Comment: Speci men Type: BLOOD SPECIMEN Ordering Facility: [facility] Address: [address] [place] [address] Performed By: #### T SPN #### [facility] CLIA [id number] [address] Start: 09-14-2024 Urnls dip stick/tabl et rgnt auto w/o microscopy Priti Montiel DO Work Phone: Start: 09-01-2024 Us preg uterus after 1st trimest 11/10 gestation Anthony Joyce OVERHEAD CRANE INSPECTOR.DRAPERY CUTTER MACHINE Work Phone: Start: 08-31-2024 Urnls dip stick/tabl et rgnt auto w/o microscopy Anthony Cook OVERHEAD CRANE INSPECTOR.DRAPERY CUTTER MACHINE Work Phone: Start: 08-17-[address] [facility] OVERHEAD CRANE INSPECTOR.DRAPERY CUTTER MACHINE Work Phone: Start: 08-17-2024 Urnls dip stick/tabl et rgnt auto w/o microscopy [facility] OVERHEAD CRANE INSPECTOR.DRAPERY CUTTER MACHINE Work Phone: Start: 07-30-2024 Us preg uterus after 1st trimest 11/10 gestation Jose A Ramirez MD Work Phone: Start: 07-21-2024 Urnls dip stick/tabl et rgnt auto w/o microscopy Priti Montiel DO Work Phone: Start: 07-15-2024 Us preg uterus after 1st trimest 11/10 gestation Ashely Hassan MD Work Phone: Start: 06-24-2024 Urnls dip stick/tabl et rgnt auto w/o microscopy Scott Hoang MD Work Phone: Start: 06-24-2024 Us preg uterus after 1st trimest 11/10 gestation Jose A Ramirez MD Work Phone: Start: 06-09-2024 Us preg uterus after 1st trimest 11/10 gestation Jose A Ramirez MD Work Phone: Start: 05-26-2024 Urnls dip stick/tabl et rgnt auto w/o microscopy [facility] Provider Start: 05-11-2024 Us preg uterus after 1st trimest 11/10 gestation Jose A Ramirez MD Work Phone: Start: 04-26-2024 Us preg uterus after 1st trimest 11/10 gestation Jose A Ramirez MD Work Phone: Start: 04-07-2024 H/O: section History of C-s ection Akiko Tomlin PA-C Work Phone: Start: 03-28-2024 Antibody screen CONNOR MIRANDA Comment on above: Order Comment: Speci men Type: BLOOD SPECIMENOrdering Facility: [facility] Address: [address] [place] [address] Performed By: #### T SCR ####[facility] [id number] [place] [address] [place] Start: 03-28-2024 Gonadotropin chorion ic quantitative Randal Rivera DO Work Phone: Start: 03-28-2024 Urinalysis complete panel - Urine Ranadl Rivera DO Work Phone: Start: 03-28-2024 Urnls dip stick/tabl et rgnt auto w/o microscopy Randal Rivera DO Work Phone: Start: 03-23-2024 STREP A MOLECULAR (POC) Praveen Gray PA-C Work Phone: Start: 03-17-2024 Iadna chlamydia trac homatis amplified probe tq Beryl Arenas MD Work Phone: Start: 03-17-2024 VA AN ELECTIVE ENDOT ARSEN AIRWAY Florentin Sewell OVERHEAD CRANE INSPECTOR - POWER SHOVEL OPERATOR Work Phone: Start: 03-17-2024 End: 03-17-2024 Laps tx ectopic preg w/salping&/oophorectomy Beryl Arenas MD Work Phone: Start: 03-17-2024 Us preg uterus real time w/image dcmtn transvag Susanzina Chandler DO Work Phone: Start: 03-17-2024 Basic metabolic pane l calcium total Jarek G Nesheim DO Work Phone: Start: 03-17-2024 Urinalysis complete panel - Urine Jarek G Nesheim DO Work Phone: Start: 03-17-2024 Urnls dip stick/tabl et reagent auto microscopy Jarek G Nesheim DO Work Phone: Start: 10-01-2023 US scan of thyroid Dr. Florentin Toribio Work Phone: Start: 06-09-2023 Plain chest X-ray Start: 05-06-2023 Radex shoulder compl ete minimum 2 views Yoel Guzmán APRN.CNP Work Phone: Start: 04-09-2023 US scan of thyroid Start: 01-19-2023 STREP A MOLECULAR (POC) Mer Bardales APRN.CNP Work Phone: Start: 12-26-2022 CT of head without contrast Start: 12-10-2022 Plain chest X-ray Dr. Marcelle Martini Work Phone: Start: 11-12-2022 MRI of brain with contrast Dr. Connor Martini Work Phone: Start: 09-10-2022 Radiologic exam ches t 2 views Yoel Guzmán APRN.CNP Work Phone: Start: 09-10-2022 STREP A MOLECULAR (POC) Yoel Guzmán APRN.CNP Work Phone: Start: 09-03-[address] Connor Martini Work Phone: Start: 08-21-[address] Marcelle Martini Work Phone: Start: 08-21-[address] Connor Martini Work Phone: Start: 08-18-2022 Incision and drainag e of abscess Dr. Connor Martini Work Phone: Start: 08-18-[address] Connor Martini Work Phone: Start: 06-12-2022 Plain chest X-ray Dr. Marcelle Martini Work Phone: Start: 05-28-2022 Ultrasound scan for growth Dr. Connor Martini Work Phone: Start: 04-05-2022 Ultrasonography for antepartum monitoring of fetus Dr. Connor Martini Work Phone: Start: 04-05-[address] Connor Martini Work Phone: Start: 03-28-[address] Connor Martini Work Phone: Start: 01-28-[address] Connor Martini Work Phone: Anaerobic microbial culture Dr. Connor Martini Work Phone: Anaerobic microbial culture Dr. Connor Martini Work Phone: section DR TAMMY ZENG MD Group B Streptococcu s Culture Dr. Connor Martini Work Phone: H/O: section Status pos t delivery Dr. Connor Martini Work Phone: Comment on above: bb naresh kymariana srom br eech at 31 weeks. -06/14/22 JV H/O: section History of C-sectio sly Wall DO Work Phone: H/O: section Hx of cesa rean section Dr. Florentin Toribio DO Work Phone: Investigation of transfusion reaction Dr. Connor Martini Work Phone: Investigation of transfusion reaction Dr. Connor Martini Work Phone: Microbial culture, routine D barbara Martini Work Phone: Microbial culture, routine D barbara Martini Work Phone: Urine culture Dr. Connor Martini Work Phone: Urine culture Dr. Connor Martini Work Phone: Plan of Treatment Date Care Activity Detail Author Start: 2064 RSV Vaccine (1 - 1-dose 60+ series) RSV Vaccine (1 - 1-dose 60+ series) [facility] Start: 2054 Zoster Vaccines (1 of 2) Zoster Vaccines (1 of 2) [facility] Start: 09-14-2034 Urine microalbumin profile DTaP,Tdap,Td Vaccine (8 - Td or Tdap) [facility] Start: 05-09-2026 GC (Gonorrhea) Screening (18-24) GC (Gonorrhea) Screening (18-) [facility] Start: 05-09-2026 Screening for Chlamydia trachomatis Chlamydia Screening (18-) [facility] Start: 11-27-2025 DTaP/Tdap/Td Vaccines (7 - Td or Tdap) DTaP/Tdap/Td Vaccines (7 - Td or Tdap) [facility] Start: 11-27-2025 Urine microalbumin profile [facility] Start: 10-03-2025 GC (Gonorrhea) Screening (18-24) GC (Gonorrhea) Screening (18-24) [facility] Start: 10-03-2025 Screening for Chlamydia trachomatis Chlamydia Screening (18-) [facility] Start: 09-17-2025 GC (Gonorrhea) Screening (18-24) GC (Gonorrhea) Screening (18-24) [facility] Start: 09-17-2025 Screening for Chlamydia trachomatis Chlamydia Screening (18-24) [facility] Start: 09-15-2025 GC (Gonorrhea) Screening (18-24) GC (Gonorrhea) Screening (18-24) [facility] Start: 09-15-2025 Screening for Chlamydia trachomatis Chlamydia Screening (18-24) [facility] Start: 08-22-2025 GC (Gonorrhea) Screening (18-24) GC (Gonorrhea) Screening (18-24) [facility] Start: 08-22-2025 Screening for Chlamydia trachomatis Chlamydia Screening (18-24) [facility] Start: 07-20-2025 End: 07-20-2025 ambulatory 07/20/2025 4:30 PM EDT OT/PT/Speech Visit [facility] [address] [place] [address] Akiko Maynard, PT M25.572 (ICD-10-CM) - Acute left ankle pain [facility] Comment on above: M25.572 (ICD-10-CM) - Acute left ankle p ain Start: 07-20-2025 End: 07-20-2025 Patient encounter procedure 07/20/2025 8:30 AM EDT Office Visit [facility] [address] [place] [address] Dori Johnson PA-C [address] [place] [address] [facility] Comment on above: 6 month follow up Start: 07-13-2025 End: 07-13-2025 ambulatory 07/13/2025 4:30 PM EDT OT/PT/Speech Visit [facility] [address] [place] [address] Akiko Maynard, PT M25.572 (ICD-10-CM) - Acute left ankle pain [facility] Comment on above: M25.572 (ICD-10-CM) - Acute left ankle p ain Start: 07-11-2025 Influenza vaccination [facility] Start: 07-06-2025 End: 07-06-2025 ambulatory 07/06/2025 4:30 PM EDT OT/PT/Speech Visit [facility] [address] [place] [address] Emperatriz Benton, CALL BOX WIRER [address] [place] [address] M25.572 (ICD-10-CM) - Acute left ankle pain [facility] Comment on above: M25.572 (ICD-10-CM) - Acute left ankle p ain Start: 06-30-2025 End: 06-30-2025 Echocardiography 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 History of Expected: 06/30/2025, Expires: 06/30/2025 [facility] Comment on above: Expected: 06/30/2025, Expires: Start: 06-29-2025 End: 06-29-2025 ambulatory 06/29/2025 4:30 PM EDT OT/PT/Speech Visit [facility] [address] [place] [address] Emperatriz Benton, CALL BOX WIRER [address] [place] [address] M25.572 (ICD-10-CM) - Acute left ankle pain [facility] Comment on above: M25.572 (ICD-10-CM) - Acute left ankle p ain Start: 06-22-2025 End: 06-22-2025 ambulatory 06/22/2025 1:30 PM EDT OT/PT/Speech Visit [facility] [address] [place] [address] Akiko Maynard, PT M25.572 (ICD-10-CM) - Acute left ankle pain [facility] Comment on above: M25.572 (ICD-10-CM) - Acute left ankle p ain Start: 06-08-2025 End: 06-08-2025 ambulatory 06/08/2025 6:00 PM EDT OT/PT/Speech Visit [facility] [address] [place] [address] OAkiko Lofton, PT M25.572 (ICD-10-CM) - Acute left ankle pain [facility] Comment on above: M25.572 (ICD-10-CM) - Acute left ankle p ain Start: 05-19-2025 GC (Gonorrhea) Screening (18-24) GC (Gonorrhea) Screening (18-24) [facility] Start: 05-19-2025 Screening for Chlamydia trachomatis Chlamydia Screening (18-24) [facility] Start: 05-10-2025 [facility] Start: 05-09-2025 End: 05-09-2025 Patient encounter procedure 05/09/2025 8:45 AM EDT Office Visit [address] [phone] Anthony Cook APRN.PENDING SALE TO [facility] [address] [phone] Abnormal bleeding [facility] Comment on above: Abnormal bleeding Start: 04-07-2025 GC (Gonorrhea) Screening (18-24) GC (Gonorrhea) Screening (18-24) [facility] Start: 04-07-2025 Screening for Chlamydia trachomatis Chlamydia Screening (18-24) [facility] Start: 03-25-2025 [facility] Start: 02-11-2025 [facility] Start: 01-24-2025 End: 01-24-2025 Patient encounter procedure 01/24/2025 8:45 AM EDT Appointment Mammography [address] [address] Bilateral fibrocystic breast changes [N60.11, N60.12] Mammography Comment on above: Bilateral fibrocystic breast changes [N6 0.11, N60.12] Start: 01-13-2025 End: 01-13-2025 Patient encounter procedure 01/13/2025 2:00 PM EST Office Visit Breast Center [address] [address] Dori Johnson PA-C [address] [place] [address] Conte [facility] Comment on above: referred by a Dr. Conte Start: 11-18-2024 End: 11-18-2024 Patient encounter procedure 11/18/2024 8:30 AM EST Office Visit [place] [id number] [facility] [address] [place] [phone] Monty Rivera MD 1 [place] [address] 6 WK PP [facility] Comment on above: 6 WK PP Start: 10-26-2024 End: 10-26-2024 Patient encounter procedure 10/26/2024 9:30 AM EST Routine Office Visit [facility] Maternal [facility] [address] [facility] 2[address] Floor [place], [place] [phone] GROWTH SCOTT: 11/20/24 [facility] Comment on above: GROWTH SCOTT: 11/20/24 [facility] Start: 10-21-2024 End: 10-21-2024 Patient encounter procedure 10/21/2024 11:00 AM EST Office Visit [address] [phone] Lynnette Burk DO [address] [facility], [address] [place], [place] [phone] 2 WEEK [facility] Comment on above: 2 WEEK Start: 10-12-2024 End: 10-12-2024 Patient encounter procedure 10/12/2024 8:30 AM EST Routine Office Visit [address] [place] [phone] Eric Stacy DO 1 [place], [place] [phone] siva [facility] Comment on above: siva Start: 10-05-2024 End: 10-05-2024 delivery only SECTION Non-reassuring electronic monitoring tracing 10/05/2024 12:00 PM EST [facility] Start: 09-28-2024 End: 09-28-2024 Patient encounter procedure [facility] Comment on above: growth [facility] scott 11/20/24 S[facility]A Start: 09-25-2024 RSV Immunization aged 60 or older (1 - Risk 1-dose series) RSV Immunization aged 60 or older (1 - Risk 1-dose series) [facility] Start: 09-25-2024 RSV Vaccine (1 - Risk 1-dose series) RSV Vaccine (1 - Risk 1-dose series) [facility] Start: 09-21-2024 End: 09-21-2024 Patient encounter procedure 09/21/2024 8:30 AM EST Routine Office Visit [address] [phone] Priti Montiel DO 1 [place], [place] [phone] ED FU [facility] Comment on above: ED FU Start: 09-14-2024 End: 09-14-2024 Patient encounter procedure [facility] Comment on above: SIVA/TDAP SIVA/TDAP(see orion to schedule next ultrasound) Start: 09-01-2024 End: 09-01-2024 Patient encounter procedure [facility] Comment on above: 28 wk Growth SCOTT: 11/20/24 [facility] 28 wk Growth History of delivery & section. Seizures. SCOTT: 11/20/24 [facility] Start: 08-31-2024 End: 08-31-2024 Patient encounter procedure 08/31/2024 9:45 AM EDT Routine Office Visit [address] [phone] Anthony Cook APRN.DRAPERY CUTTER MACHINE [address] [facility] [address] [place] [address] SIVA w/ Nutrition [facility] Comment on above: SIVA w/ Nutrition Start: 08-17-2024 End: 08-17-2024 Patient encounter procedure 08/17/2024 10:15 AM EDT Routine Office Visit [place] [id number] [phone] Anthony Cook APRN.DRAPERY CUTTER MACHINE [address] [address] SIVA/1 hour gct [facility] Comment on above: SIVA/1 hour gct Start: 07-30-2024 End: 07-30-2024 Patient encounter procedure 07/30/2024 11:00 AM EDT Routine Office Visit [facility] Maternal Medicine [address] [facility] 2nd [place] [address] CL SCOTT: 11/20/24 [facility] Comment on above: CL SCOTT: 11/20/24 [facility] Start: 07-21-2024 End: 07-21-2024 Patient encounter procedure 07/21/2024 9:30 AM EDT Routine Office Visit [address] [phone] Priti Montiel DO 1 [place] [address] SIVA [facility] Comment on above: SIVA Start: 07-15-2024 End: 07-15-2024 Patient encounter procedure Maternal Medicine Comment on above: Anatomy // Encounter for supervision of high risk young multigravida, antepartum [O09.629] Growth SCOTT: 11/20/24 [facility] Growth (was 7%), CL, hx PTD SCOTT: 11/20/24 [facility] Start: 07-11-2024 Covid-19 Vaccine ( season) Covid-19 Vaccine () [facility] Start: 07-11-2024 Covid-19 Vaccine () Covid-19 Vaccine () [facility] Start: 07-11-2024 Influenza vaccination [facility] Start: 07-02-2024 End: 07-02-2024 Telephone encounter 07/02/2024 Telephone [facility] [address] [place] [address] [place] [address] [place] [address] Appointment (07/02 CX) [facility] Comment on above: Appointment (07/02 CX) Start: 07-02-2024 End: 07-02-2024 Patient encounter procedure 07/02/2024 11:50 AM EDT Routine Office Visit OB/Gynecology [address] [place] [address] [place] [address] [place] [address] OB 4w f/u OB/Gynecology Comment on above: OB 4w f/u Start: 07-01-2024 End: 07-01-2024 ambulatory 07/01/2024 1:30 PM EDT Results Only [facility] [address] [place] [address] [facility] Start: 06-30-2024 End: 09-29-2024 Comprehensive metabolic 2000 panel - Serum or Plasma COMPREHENSIVE METABOLIC PANEL Lab Routine 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 History of Expected: 06/30/2024, Expires: 09/29/2024 [facility] Work Phone: Comment on above: Expected: 06/30/2024, Expires: Start: 06-30-2024 End: 09-29-2024 Natriuretic peptide.B prohormone N-Terminal [Mass/volume] in Serum or Plasma NT PRO BNP Lab Routine 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 History of Expected: 06/30/2024, Expires: 09/29/2024 [facility] Comment on above: Expected: 06/30/2024, Expires: Start: 06-30-2024 End: 06-30-2024 Patient encounter procedure Cardiology Comment on above: DANIELA ECHO COB appointment Start: 06-24-2024 End: 06-24-2025 OBSTETRIC ULTRASOUND WHI OBSTETRIC ULTRASOUND WHI Anc Imaging Routine Poor growth affecting management of mother in second trimester, single or unspecified fetus Expected: 06/24/2024, Expires: 06/24/2025 [facility] Work Phone: Comment on above: Expected: 06/24/2024, Expires: Start: 06-24-2024 End: 06-24-2024 Patient encounter procedure [facility] Comment on above: SIVA ANATOMY/CL SCOTT: 11/10 12/04 [facility] Start: 06-09-2024 End: 06-09-2025 OBSTETRIC ULTRASOUND WHI OBSTETRIC ULTRASOUND WHI Anc Imaging Routine History of delivery, currently Expected: 06/09/2024, Expires: 06/09/2025 [facility] Comment on above: Expected: 06/09/2024, Expires: Start: 06-09-2024 End: 06-09-2024 Patient encounter procedure 06/09/2024 2:00 PM EDT Routine Office Visit [facility] Maternal Medicine [address] [facility] 2nd [place] [address] cervical whc sched 18wk anatomy per orion [facility]aternal [facility] Comment on above: cervical whc sched 18wk anatomy per orion Start: 06-03-2024 End: 06-03-2024 Patient encounter procedure 06/03/2024 11:15 AM EDT Routine Office Visit OB/Gynecology [address] [place] [address] Mónica Alamo MD [address] [place] [address] OB 4w f/u OB/Gynecology Comment on above: OB 4w f/u Start: 05-26-2024 End: 05-26-2025 OBSTETRIC ULTRASOUND WHI OBSTETRIC ULTRASOUND WHI Anc Imaging Routine History of delivery, currently Expected: 05/26/2024, Expires: 05/26/2025 [facility] Work Phone: Comment on above: Expected: 05/26/2024, Expires: Start: 05-26-2024 End: 05-26-2024 Patient encounter procedure 05/26/2024 1:00 PM EDT Routine Office Visit [facility] [address] [facility] [address] [place] [phone] HROB(per Dr. Hassan) [facility] Comment on above: HROB(per Dr. Hassan) Start: 05-20-2024 End: 05-20-2024 Patient encounter procedure 05/20/2024 10:00 AM EDT Routine Office Visit Maternal Medicine [address] [facility] [address] [place] [address] Nuchal // Encounter for supervision of high risk young multigravida, antepartum [O09.629] Maternal Medicine Comment on above: Nuchal // Encounter for supervision of h igh risk young multigravida, antepartum [O09.629] Start: 05-11-2024 End: 05-11-2025 OBSTETRIC ULTRASOUND WHI OBSTETRIC ULTRASOUND WHI Anc Imaging Routine Expected: 05/11/2024, Expires: 05/11/2025 [facility] Work Phone: Comment on above: Expected: 05/11/2024, Expires: Start: 05-11-2024 End: 05-11-2024 Patient encounter procedure 05/11/2024 8:30 AM EDT Routine Office Visit OB/Gynecology [address] [place] [address] MFM consult (requested by Steven and jimbo per RR) OB/Gynecology Comment on above: MFM consult (requested by Steven and jimbo per RR) Start: 05-05-2024 End: 05-05-2024 Patient encounter procedure 05/05/2024 3:00 PM EDT Routine Office Visit OB/Gynecology [address] [place] [address] Johnna Vaughan MD [address] [place] [address] OB 4w f/u OB/Gynecology Comment on above: OB 4w f/u Start: 05-03-2024 End: 05-03-2024 Nutrition therapy 05/03/2024 8:15 AM EDT Education [facility] [address] [place] [address] [facility] Comment on above: . 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 ectopic found IUP, consult after, SCOTT 11/20, Consult, Multiple is sues, SCOTT 11/20 Start: 04-13-2024 End: 04-13-2024 Nursing evaluation of patient and report 04/13/2024 3:00 PM EDT Nurse Visit Diabetic Education [facility] [address] [address] Camilla Navarro, RN [address] [phone] . Diabetic Education [facility] Comment on above: . Start: 04-08-2024 End: 04-08-2024 ambulatory 04/08/2024 10:30 AM EDT Results Only [place] [facility] Draw Station [address] [facility] [place] [address] [place] [facility] Start: 04-07-2024 End: 04-07-2024 Patient encounter procedure 04/07/2024 2:45 PM EDT Initial Office Visit Obstetrics/Gynecology [address] [address] Akiko Tomlin PA-C [address], [address] [place] [address] ED follow up: // Lvm and MC messages to r/s 04/06 Obstetrics/Gynecolog y Comment on above: ED follow up: // Lvm and MC me ssages to r/s 04/06 Start: 04-07-2024 End: 07-07-2024 CBC panel - Blood by Automated count COMPLETE BLOOD COUNT Lab Routine Encounter for supervision of high risk young multigravida, antepartum History of prior with small for gestational age History of prior with IUGR Other pre-existing diabetes mellitus during , antepartum Other cardiomyopathy (HCC) Brugada syndrome Seizure (HCC) History of premature rupture of membranes History of delivery, currently History of toxoplasmosis History of laparotomy Expected: 04/07/2024, Expires: 07/07/2024 [facility] Comment on above: Expected: 04/07/2024, Expires: Start: 04-07-2024 End: 07-07-2024 Comprehensive metabolic 2000 panel - Serum or Plasma COMPREHENSIVE METABOLIC PANEL Lab Routine Encounter for supervision of high risk young multigravida, antepartum History of prior with small for gestational age History of prior with IUGR Other pre-existing diabetes mellitus during , antepartum Other cardiomyopathy (HCC) Brugada syndrome Seizure (HCC) History of premature rupture of membranes History of delivery, currently History of toxoplasmosis History of laparotomy Expected: 04/07/2024, Expires: 07/07/2024 [facility] Comment on above: Expected: 04/07/2024, Expires: Start: 04-07-2024 End: 07-07-2024 Hemoglobin A1c in Blood HEMOGLOBIN A1C Lab Routine Encounter for supervision of high risk young multigravida, antepartum History of prior with small for gestational age History of prior with IUGR Other pre-existing diabetes mellitus during , antepartum Other cardiomyopathy (HCC) Brugada syndrome Seizure (HCC) History of premature rupture of membranes History of delivery, currently History of toxoplasmosis History of laparotomy Expected: 04/07/2024, Expires: 07/07/2024 [facility] Comment on above: Expected: 04/07/2024, Expires: Start: 04-07-2024 End: 07-07-2024 Hepatitis B virus surface Ag [Presence] in Serum HEPATITIS B SURFACE ANTIGEN Lab Routine Encounter for supervision of high risk young multigravida, antepartum History of prior with small for gestational age History of prior with IUGR Other pre-existing diabetes mellitus during , antepartum Other cardiomyopathy (HCC) Brugada syndrome Seizure (HCC) History of premature rupture of membranes History of delivery, currently History of toxoplasmosis History of laparotomy Expected: 04/07/2024, Expires: 07/07/2024 [facility] Comment on above: Expected: 04/07/2024, Expires: Start: 04-07-2024 End: 07-07-2024 Hepatitis C virus Ab [Presence] in Serum HEPATITIS C ANTIBODY IA WITH CONFIRMATION Lab Routine Encounter for supervision of high risk young multigravida, antepartum History of prior with small for gestational age History of prior with IUGR Other pre-existing diabetes mellitus during , antepartum Other cardiomyopathy (HCC) Brugada syndrome Seizure (HCC) History of premature rupture of membranes History of delivery, currently History of toxoplasmosis History of laparotomy Expected: 04/07/2024, Expires: 07/07/2024 [facility] Comment on above: Expected: 04/07/2024, Expires: 4 Start: 04-07-2024 End: 07-07-2024 HIV 1+2 Ab [Presence] in Serum or Plasma by Immunoassay HIV 1/2 COMBO WITH REFLEX TO DIFFERENTIATION Lab Routine Encounter for supervision of high risk young multigravida, antepartum History of prior with small for gestational age History of prior with IUGR Other pre-existing diabetes mellitus during , antepartum Other cardiomyopathy (HCC) Brugada syndrome Seizure (HCC) History of premature rupture of membranes History of delivery, currently History of toxoplasmosis History of laparotomy Expected: 04/07/2024, Expires: 07/07/2024 [facility] Comment on above: Expected: 04/07/2024, Expires: 4 Start: 04-07-2024 End: 04-07-2025 NUCHAL TRANSLUCENCY WHI NUCHAL TRANSLUCENCY WHI Anc Imaging Routine Encounter for supervision of high risk young multigravida, antepartum Expected: 04/07/2024, Expires: 04/07/2025 [facility] Comment on above: Expected: 04/07/2024, Expires: Start: 04-07-2024 End: 04-07-2025 OBSTETRIC ULTRASOUND WHI OBSTETRIC ULTRASOUND WHI Anc Imaging Routine Encounter for supervision of high risk young multigravida, antepartum Expected: 04/07/2024, Expires: 04/07/2025 [facility] Comment on above: Expected: 04/07/2024, Expires: 5 Start: 04-07-2024 End: 07-07-2024 Protein/Creatinine [Mass Ratio] in Urine PROTEIN / CREATININE RATIO Lab Routine Encounter for supervision of high risk young multigravida, antepartum History of prior with small for gestational age History of prior with IUGR Other pre-existing diabetes mellitus during , antepartum Other cardiomyopathy (HCC) Brugada syndrome Seizure (HCC) History of premature rupture of membranes History of delivery, currently History of toxoplasmosis History of laparotomy Expected: 04/07/2024, Expires: 07/07/2024 [facility] Comment on above: Expected: 04/07/2024, Expires: Start: 04-07-2024 End: 07-07-2024 RUBELLA IGG ANTIBODY RUBELLA IGG ANTIBODY Lab Routine Encounter for supervision of high risk young multigravida, antepartum History of prior with small for gestational age History of prior with IUGR Other pre-existing diabetes mellitus during , antepartum Other cardiomyopathy (HCC) Brugada syndrome Seizure (HCC) History of premature rupture of membranes History of delivery, currently History of toxoplasmosis History of laparotomy Expected: 04/07/2024, Expires: 07/07/2024 [facility] Comment on above: Expected: 04/07/2024, Expires: Start: 04-07-2024 End: 07-07-2024 SYPHILIS TOTAL W/REFLEX SYPHILIS TOTAL W/REFLEX Lab Routine Encounter for supervision of high risk young multigravida, antepartum History of prior with small for gestational age History of prior with IUGR Other pre-existing diabetes mellitus during , antepartum Other cardiomyopathy (HCC) Brugada syndrome Seizure (HCC) History of premature rupture of membranes History of delivery, currently History of toxoplasmosis History of laparotomy Expected: 04/07/2024, Expires: 07/07/2024 [facility] Comment on above: Expected: 04/07/2024, Expires: Start: 04-07-2024 End: 07-07-2024 Thyrotropin [Units/volume] in Serum or Plasma THYROID STIMULATING HORMONE Lab Routine Encounter for supervision of high risk young multigravida, antepartum History of prior with small for gestational age History of prior with IUGR Other pre-existing diabetes mellitus during , antepartum Other cardiomyopathy (HCC) Brugada syndrome Seizure (HCC) Nontoxic single thyroid nodule History of premature rupture of membranes History of delivery, currently History of toxoplasmosis History of laparotomy Expected: 04/07/2024, Expires: 07/07/2024 [facility] Comment on above: Expected: 04/07/2024, Expires: Start: 04-07-2024 End: 07-07-2024 Thyroxine (T4) free [Mass/volume] in Serum or Plasma T4 FREE/FREE THYROXINE Lab Routine Encounter for supervision of high risk young multigravida, antepartum History of prior with small for gestational age History of prior with IUGR Other pre-existing diabetes mellitus during , antepartum Other cardiomyopathy (HCC) Brugada syndrome Seizure (HCC) Nontoxic single thyroid nodule History of premature rupture of membranes History of delivery, currently History of toxoplasmosis History of laparotomy Expected: 04/07/2024, Expires: 07/07/2024 [facility] Comment on above: Expected: 04/07/2024, Expires: 4 Start: 04-07-2024 End: 07-07-2024 TYPE + SCREEN TYPE + SCREEN Blood Bank Routine Encounter for supervision of high risk young multigravida, antepartum History of prior with small for gestational age History of prior with IUGR Other pre-existing diabetes mellitus during , antepartum Other cardiomyopathy (HCC) Brugada syndrome Seizure (HCC) History of premature rupture of membranes History of delivery, currently History of toxoplasmosis History of laparotomy Expected: 04/07/2024, Expires: 07/07/2024 [facility] Comment on above: Expected: 04/07/2024, Expires: 4 Start: 03-17-2024 End: 03-17-2025 hCG, quantitative hCG, quantitative Lab Routine Threatened Expected: 03/17/2024 (Approximate), Expires: 03/17/2025 [facility] Work Phone: Comment on above: Expected: 03/17/2024 (Approximate), Expi res: 03/17/2025 Start: 11-21-2023 [facility] Start: 11-10-2023 Behavioral Health Screening Behavioral Health Screening [facility] Start: 08-31-2023 [facility] Start: 07-11-2023 COVID-19 Vaccine ( season) COVID-19 Vaccine () [facility] Start: 07-11-2023 Covid-19 Vaccine ( season) Covid-19 Vaccine () [facility] Start: 07-11-2023 Influenza vaccination [facility] Start: 11-12-2022 MR Brain WO and W contrast IV [facility] Work Phone: Start: 11-12-2022 MRI of brain with contrast Brain W/WO Contrast [facility] Work Phone: Start: 11-10-2022 DEPRESSION ASSESSMENT DEPRESSION ASSESSMENT [facility] Start: 11-03-2022 [facility] Work Phone: Start: 09-10-2022 End: 09-24-2022 Influenza virus A and B RNA and SARS-CoV-2 (COVID-19) N gene panel - Respiratory specimen by ROWENA with probe detection COVID WITH FLUA+B, ROUTINE Microbiology Routine Acute cough Pharyngitis, unspecified etiology Suspected COVID-19 virus infection Expected: 09/10/2022, Expires: 09/24/2022 [facility] Work Phone: Comment on above: Expected: 09/10/2022, Expires: Start: 08-21-2022 Patient discharge [facility] Start: 08-20-2022 Referral to service [facility] Start: 08-19-2022 Application of intermittent pneumatic compression device [facility] Start: 08-19-2022 Wound care [facility] Start: 08-19-2022 Application of intermittent pneumatic compression device [facility] Start: 08-19-2022 Consultation for treatment [facility] Start: 08-18-2022 Admission procedure [facility] Start: 08-18-2022 Vital signs measurements [facility] Start: 08-18-2022 Following clinical pathway protocol [facility] Start: 08-18-2022 Provision of activity privileges [facility] Start: 08-18-2022 Referral to general surgeon [facility] Start: 08-18-2022 Ultrasonography of breast Breast Limited Unilateral [facility] Work Phone: Start: 08-18-2022 US Breast limited [facility] Work Phone: Start: 2022 Anxiety Screening Anxiety Screening [facility] Start: 2022 CHLAMYDIA SCREENING (18-24) CHLAMYDIA SCREENING (18-24) [facility] Start: 2022 Depression Screening Depression Screening [facility] Start: 2022 GC (GONORRHEA) SCREENING (18-24) GC (GONORRHEA) SCREENING (18-24) [facility] Start: 2022 HEPATITIS C SCREENING HEPATITIS C SCREENING [facility] Start: 2022 Hepatitis C screening Hepatitis C Screening [facility] Start: 2022 HIV SCREENING HIV SCREENING [facility] Start: 2022 HIV screening HIV Screening [facility] Start: 2022 Screening for Chlamydia trachomatis Chlamydia Screening (18) [facility] Start: 07-11-2022 Influenza vaccination INFLUENZA (#1) [facility] Start: 06-15-2022 Patient discharge [facility] Work Phone: Start: 06-15-2022 Application of abdominal corset [facility] Work Phone: Start: 06-14-2022 Administration of medication [facility] Work Phone: Start: 06-14-2022 Ambulation therapy management [facility] Work Phone: Start: 06-14-2022 Application of device [facility] Work Phone: Start: 06-14-2022 Application of intermittent pneumatic compression device [facility] Work Phone: Start: 06-14-2022 Assessment of risk of venous thromboembolism [facility] Work Phone: Start: 06-14-[address] [facility] Work Phone: Start: 06-14-2022 Deep breathing and coughing exercises [facility] Work Phone: Start: 06-14-2022 Exercises [facility] Work Phone: Start: 06-14-2022 Incentive spirometry [facility] Work Phone: Start: 06-14-2022 Measuring intake and output [facility] Work Phone: Start: 06-14-2022 Notification of physician [facility] Work Phone: Start: 06-14-2022 Procedure discontinued [facility] Work Phone: Start: 06-14-2022 Provision of activity privileges [facility] Work Phone: Start: 06-14-2022 Vital signs measurements [facility] Work Phone: Start: 06-14-2022 Wound care [facility] Work Phone: Start: 06-14-2022 Application of abdominal corset [facility] Work Phone: Start: 06-14-2022 Procedure [facility] Work Phone: Start: 06-14-2022 End: 06-14-2022 [facility] Work Phone: Start: 06-14-2022 Admission procedure [facility] Work Phone: Start: 06-12-2022 Procedure [facility] Work Phone: Start: 04-23-2022 Nonstress test [facility] Work Phone: Start: 04-23-2022 End: 04-23-2022 [facility] Work Phone: Start: 04-23-2022 Obstetric monitoring [facility] Work Phone: Start: 04-23-2022 Vital signs measurements [facility] Work Phone: Start: 04-05-2022 Nonstress test [facility] Work Phone: Start: 04-05-2022 Obstetric monitoring [facility] Work Phone: Start: 04-05-2022 Vital signs measurements [facility] Work Phone: Start: 04-05-2022 [facility] Work Phone: Start: 04-05-2022 Bacteria identified in Urine by Culture Urine Culture [facility] Work Phone: Start: 04-05-2022 Iv infusion hydration initial 31 min-1 hour HYDRATION IV INFUSION INIT [facility] Work Phone: Start: 04-05-2022 Patient discharge [facility] Work Phone: Start: 11-10-2021 DEPRESSION ASSESSMENT DEPRESSION ASSESSMENT [facility] Start: 05-03-2021 COVID-19 VACCINE (3 - Booster for Pfizer series) COVID-19 VACCINE (3 - Booster for Pfizer series) [facility] Start: 05-03-2021 COVID-19 VACCINE (3 - Pfizer series) COVID-19 VACCINE (3 - Pfizer series) [facility] Start: 2020 Meningococcal B Vaccine (1 of 2 - Standard) Meningococcal B Vaccine (1 of 2 - Standard) [facility] Start: 2020 Meningococcal B Vaccine: Consider Based On Risk (1 of 2 - Patient Seeks Protection) Meningococcal B Vaccine: Consider Based On Risk (1 of 2 - Patient Seeks Protection) [facility] Start: 2020 MENINGOCOCCAL B: Consider based on risk (1 of 2 - Patient Seeks Protection) MENINGOCOCCAL B: Consider based on risk (1 of 2 - Patient Seeks Protection) [facility] Start: 2020 MENINGOCOCCAL CONJUGATE (2 - 2-dose series) MENINGOCOCCAL CONJUGATE (2 - 2-dose series) [facility] Start: 2019 HPV Vaccine (1 - 3-dose series) HPV Vaccine (1 - 3-dose series) [facility] Start: 2019 HPV Vaccines (1 - 3-dose series) HPV Vaccines (1 - 3-dose series) [facility] Start: 2018 PEDS TO ADULT TRANSITION ANNUAL ASSESSMENT PEDS TO ADULT TRANSITION ANNUAL ASSESSMENT [facility] Start: 2016 Depression Screening Depression Screening [facility] Start: 2016 PEDS TO ADULT TRANSITION INITIAL DISCUSSION PEDS TO ADULT TRANSITION INITIAL DISCUSSION [facility] Start: 2015 HPV VACCINE (1 - 2-dose series) HPV VACCINE (1 - 2-dose series) [facility] Start: 2014 MENINGOCOCCAL B: Consider based on risk (1 of 2 - Risk Bexsero 2-dose series) MENINGOCOCCAL B: Consider based on risk (1 of 2 - Risk Bexsero 2-dose series) [facility] Start: 2013 HPV VACCINE (1 - 2-dose series) HPV VACCINE (1 - 2-dose series) [facility] Start: 03-24-2005 Application of dental fluoride varnish Fluoride Varnish [facility] Start: 2004 HIV screening HIV Screening [facility] Bacteria identified in Urine by Culture URINE CULTURE Microbiology Routine Encounter for supervision of high risk young multigravida, antepartum History of prior with small for gestational age History of prior with IUGR Other pre-existing diabetes mellitus during , antepartum Other cardiomyopathy (HCC) Brugada syndrome Seizure (HCC) History of premature rupture of membranes History of delivery, currently History of toxoplasmosis History of laparotomy Ordered: 04/07/2024 [facility] Comment on above: Ordered: 04/07/2024 Bacteria identified in Urine by Culture URINE CULTURE Microbiology Routine Encounter for supervision of normal first in first trimester 11 weeks gestation of Contamination of urine culture 05/05/2024 3:23 PM EDT [facility] Work Phone: CBC panel - Blood by Automated count COMPLETE BLOOD COUNT Lab Routine Encounter for supervision of high risk young multigravida, antepartum Ordered: 07/21/2024 [facility] Comment on above: Ordered: 07/21/2024 CBC W Auto Different ial panel - Blood [facility] Work Phone: Chlamydia trachomatis+Neisseria gonorrhoeae DNA [Presence] in Unspecified specimen by ROWENA with probe detection GONORRHEA/CHLAMYDIA NAAT Lab Routine Encounter for supervision of high risk young multigravida, antepartum History of prior with small for gestational age History of prior with IUGR Other pre-existing diabetes mellitus during , antepartum Other cardiomyopathy (HCC) Brugada syndrome Seizure (HCC) History of premature rupture of membranes History of delivery, currently History of toxoplasmosis History of laparotomy Ordered: 04/07/2024 [facility] Comment on above: Ordered: 04/07/2024 Chlamydia trachomatis+Neisseria gonorrhoeae DNA [Presence] in Unspecified specimen by ROWENA with probe detection GONORRHEA/CHLAMYDIA NAAT Lab Routine Abnormal uterine bleeding (AUB) 05/09/2025 9:26 AM EDT [facility] Work Phone: End: 05-19-2025 Echocardiography ECHO Cardiology Routine SOB (shortness of breath) 1 Occurrences starting 05/19/2024 until 05/19/2025 [facility] Work Phone: Comment on above: 1 Occurrences starting 05/19/2024 until 05/19/2025 GESTATIONAL GLUCOSE SCREEN, 1-HOUR, 50 GRAM, NON-FASTING GESTATIONAL GLUCOSE SCREEN, 1-HOUR, 50 GRAM, NON-FASTING Lab Routine Encounter for supervision of high risk young multigravida, antepartum Ordered: 07/21/2024 [facility] Comment on above: Ordered: 07/21/2024 Glucose [Mass/volume ] in Serum or Plasma --1 hour post 50 g glucose PO [facility] Work Phone: Influenza virus A an d B RNA and SARS-CoV-2 (COVID-19) N gene panel - Respiratory specimen by ROWENA with probe detection COVID WITH FLUA+B, ROUTINE Microbiology Routine Viral URI 01/19/2023 1:52 PM EDT [facility] Work Phone: MG Breast - bilatera l Diagnostic [facility] Work Phone: MG Breast - bilatera l Diagnostic [facility] End: 03-17-2024 Neisseria gonorrhoeae DNA [Presence] in Cervical mucus by ROWENA with probe detection Chlamydia/Gonorrhea Microbiology Routine Once (Lab) for 1 Occurrences starting 03/17/2024 until 03/17/2024 [facility] Work Phone: Comment on above: Once (Lab) for 1 Occurrences starting until 03/17/2024 End: 04-26-2025 OBSTETRIC ULTRASOUND WHI OBSTETRIC ULTRASOUND WHI Anc Imaging Routine History of delivery, currently Every other week for 4 Occurrences starting 04/26/2024 until 04/26/2025 [facility] Work Phone: Comment on above: Every other week for 4 Occurrences start ing 04/26/2024 until 04/26/2025 End: 06-09-2025 OBSTETRIC ULTRASOUND WHI OBSTETRIC ULTRASOUND WHI Anc Imaging Routine History of delivery, currently Every other week for 4 Occurrences starting 06/09/2024 until 06/09/2025 [facility] Work Phone: Comment on above: Every other week for 4 Occurrences start ing 06/09/2024 until 06/09/2025 OBSTETRIC ULTRASOUND WHI OBSTETR IC ULTRASOUND WHI Anc Imaging Routine Encounter for supervision of high risk young multigravida, antepartum Ordered: 07/21/2024 [facility] Work Phone: Comment on above: Ordered: 07/21/2024 End: 02-13-2025 OBSTETRIC ULTRASOUND WHI OBSTETRIC ULTRASOUND WHI Anc Imaging Routine Encounter for supervision of high risk young multigravida, antepartum History of prior with IUGR History of delivery, currently 5 Occurrences starting 08/17/2024 until 02/13/2025 [facility] Work Phone: Comment on above: 5 Occurrences starting 08/17/2024 until 02/13/2025 Patient Education [facility] Work Phone: Patient referral [facility] Work Phone: POC TAKER OUT ULTRASOUND POC TAKER OUT ULTRASO UND Anc Imaging Routine with uncertain viability, single or unspecified fetus Ordered: 04/07/2024 [facility] Work Phone: Comment on above: Ordered: 04/07/2024 Procedure [facility] Work Phone: STREP A MOLECULAR (POC) STREP A MOLECULAR (POC) Microbiology Routine Throat pain Ordered: 12/06/2022 [facility] Work Phone: Comment on above: Ordered: 12/06/2022 SYPHILIS TOTAL W/REFLEX SYPHILIS TOTAL W/REFLEX Lab Routine Encounter for supervision of high risk young multigravida, antepartum Ordered: 07/21/2024 [facility] Comment on above: Ordered: 07/21/2024 SYPHILIS TOTAL W/REFLEX SYPHILIS TOTAL W/REFLEX Lab Routine Encounter for supervision of high risk young multigravida, antepartum 08/17/2024 11:21 AM EDT [facility] Tdap vaccine 7 yrs/> im TDAP VAC CINE, AGE 7+ YR (ADACEL, BOOSTRIX) Immunization/Injection Routine Supervision of high risk in third trimester Ordered: 08/31/2024 [facility] Work Phone: Comment on above: Ordered: 08/31/2024 Toxoplasma gondii Ig G Ab [Units/volume] in Serum [facility] Work Phone: Toxoplasma gondii Ig M Ab [Units/volume] in Serum [facility] Work Phone: TRICHOMONAS VAGINALI S NAAT TRICHOMONAS VAGINALIS NAAT Lab Routine Abnormal uterine bleeding (AUB) 05/09/2025 9:26 AM EDT [facility] Ultrasound scan for growth [facility] Work Phone: End: 02-12-2026 US Breast - right limited US BREAST LTD RIGHT Radiology Routine Bilateral fibrocystic breast changes Mastodynia 1 Occurrences starting 01/13/2025 until 02/12/2026 [facility] Work Phone: Comment on above: 1 Occurrences starting 01/13/2025 until 02/12/2026 US BREAST BIOPSY RIG HT (POC) SURG USE ONLY US BREAST BIOPSY RIGHT (POC) SURG USE ONLY Imaging Procedures Routine Breast abscess Ordered: 09/06/2022 [facility] Work Phone: Comment on above: Ordered: 09/06/2022 US Breast limited [facility] Work Phone: US Breast limited [facility] End: 06-03-2024 US BREAST LTD RIGHT US BREAST LTD RIGHT Radiology Routine Mastodynia 1 Occurrences starting 05/05/2023 until 06/03/2024 [facility] Work Phone: Comment on above: 1 Occurrences starting 05/05/2023 until 06/03/2024 End: 08-13-2024 US BREAST LTD RIGHT US BREAST LTD RIGHT Radiology Routine Mastodynia Breast abscess 1 Occurrences starting 07/15/2023 until 08/13/2024 [facility] Work Phone: Comment on above: 1 Occurrences starting 07/15/2023 until 08/13/2024 End: 10-02-2023 Us breast uni real time with image limited US BREAST LTD RT Radiology Routine Breast abscess 1 Occurrences starting 09/02/2022 until 10/02/2023 [facility] Work Phone: Comment on above: 1 Occurrences starting 09/02/2022 until 10/02/2023 End: 07-20-2026 XR Foot - left AP and Lateral and oblique XR FOOT GENERAL 3V AP/LAT/OBL LEFT Radiology Routine Closed fracture of head of metatarsal bone of left foot, initial encounter Nondisplaced fracture of proximal phalanx of left great toe, initial encounter for closed fracture 1 Occurrences starting 04/29/2025 until 05/29/2026 [facility] Work Phone: Comment on above: 1 Occurrences starting 04/29/2025 until 05/29/2026 [facility] Immunizations Immunization Date Immunization Notes Care Provider Fa sumi 09-28-2024 respiratory syncytia l virus (RSV) vaccine, bivalent (ABRYSVO) [facility] Work Phone: [facility] 09-14-2024 tetanus toxoid, redu ary diphtheria toxoid, and acellular pertussis vaccine, adsorbed Priti Montiel DO Work Phone: [facility] 11-12-2016 influenza, injectabl e, quadrivalent, contains preservative Yoel Pendlebury [employer] Work Phone: [facility] 11-12-2016 influenza virus vaccine, unspecified formulation Wagner Conte MD Work Phone: [facility] 11-27-2015 influenza, injectabl e, quadrivalent, contains preservative Yoel Pendlebury [employer] Work Phone: [facility] 11-27-2015 meningococcal polysaccharide (groups A, C, Y and W-135) diphtheria toxoid conjugate vaccine (MCV4P) Yoel Guzmán [employer] Work Phone: [facility] 11-27-2015 tetanus toxoid, redu ary diphtheria toxoid, and acellular pertussis vaccine, adsorbed Yoel Pendlebury [employer] INS[employer] Work Phone: [facility] 08-26-2014 influenza, injectabl e, quadrivalent, preservative free Yoel Pendlebury [employer] INSPECT[employer]ACHINE Work Phone: [facility] Work Phone: 08-27-2013 influenza virus vaccine, unspecified formulation Yoel Pendlebury [employer] CR[employer] INSPECTOR.[facility] Work Phone: [facility] Work Phone: 06-28-2009 diphtheria, tetanus toxoids and acellular pertussis vaccine Yoel Guzmán [employer] INSPECTOR.[employer]TER MACHINE Work Phone: [facility] Work Phone: 06-28-2009 measles, mumps and rubella virus vaccine Yoel Stewarttamiealla [employer] INSPECTOR.[facility] Work Phone: [facility] Work Phone: 06-28-2009 poliovirus vaccine, inactivated Yoel Ramirez [employer] INS[employer].[facility] Work Phone: [facility] Work Phone: 06-28-2009 varicella virus vaccine Max margot Ramirez [employer] INSPECTOR.[facility] Work Phone: [facility] Work Phone: 11-17-2008 influenza virus vaccine, unspecified formulation Yoel Guzmán [employer] INSPECTOR.[facility] Work Phone: [facility] 10-21-2007 influenza virus vaccine, unspecified formulation Yoel Stewarttamiealla [employer] INSPECTOR.[facility] Work Phone: [facility] Work Phone: 10-14-2006 influenza virus vaccine, unspecified formulation Yoel Stewarttamiealla [employer] INSPECTOR.[facility] Work Phone: [facility] Work Phone: 02-05-2006 diphtheria, tetanus toxoids and acellular pertussis vaccine Yoel Guzmán OVERHEAD CRANE INSPECTOR.DRAPERY CUTTER MACHINE Work Phone: [facility] Work Phone: 02-05-2006 haemophilus influenz ae type b vaccine, HbOC conjugate Yoelmargot Gzumán OVERHEAD CRANE INSPECTOR.[facility] Work Phone: [facility] Work Phone: 02-05-2006 pneumococcal conjuga te vaccine, 7 valent Yoel Guzmán OVERHEAD CRANE INSPECTOR.[facility] Work Phone: [facility] Work Phone: 10-17-2005 influenza virus vaccine, unspecified formulation Yoel Guzmán OVERHEAD CRANE INSPECTOR.[facility] Work Phone: [facility] Work Phone: 10-17-2005 measles, mumps and rubella virus vaccine Yoel Guzmán OVERHEAD CRANE INSPECTOR.DRAPERY CUTTER MACHINE Work Phone: [facility] Work Phone: 10-17-2005 pneumococcal conjuga te vaccine, 7 valent Yoel Guzmán OVERHEAD CRANE INSPECTOR.DRAPERY CUTTER MACHINE Work Phone: [facility] Work Phone: 10-17-2005 varicella virus vaccine Max margot [facility] OVERHEAD CRANE INSPECTOR.[facility] Work Phone: [facility] Work Phone: 02-04-2005 diphtheria, tetanus toxoids and acellular pertussis vaccine Yoel [facility] OVERHEAD CRANE INSPECTOR.[facility] Work Phone: [facility] Work Phone: 02-04-2005 haemophilus influenz ae type b vaccine, HbOC conjugate Yoelmargot [facility] OVERHEAD CRANE INSPECTOR.[facility] Work Phone: [facility] Work Phone: 02-04-2005 hepatitis B vaccine, pediatric or pediatric/adolescent dosage Yoel Guzmán OVERHEAD CRANE INSPECTOR.[facility] Work Phone: [facility] Work Phone: 02-04-2005 poliovirus vaccine, inactivated Yoelmargot Stewartalla OVERHEAD CRANE INSPECTOR.[facility] Work Phone: [facility] Work Phone: 2004 diphtheria, tetanus toxoids and acellular pertussis vaccine Yoelmargot [facility] OVERHEAD CRANE INSPECTOR.DRAPERY CUTTER MACHINE Work Phone: [facility] Work Phone: 2004 haemophilus influenz ae type b vaccine, HbOC conjugate Yoelmargot [facility] OVERHEAD CRANE INSPECTOR.DRAPERY CUTTER MACHINE Work Phone: [facility] Work Phone: 2004 pneumococcal conjuga te vaccine, 7 valent Yoel Guzmán OVERHEAD CRANE INSPECTOR.DRAPERY CUTTER MACHINE Work Phone: [facility] Work Phone: 2004 poliovirus vaccine, inactivated Yoel [facility] OVERHEAD CRANE INSPECTOR.DRAPERY CUTTER MACHINE Work Phone: [facility] Work Phone: 2004 diphtheria, tetanus toxoids and acellular pertussis vaccine Yoel Friedalla OVERHEAD CRANE INSPECTOR.DRAPERY CUTTER MACHINE Work Phone: [facility] Work Phone: 2004 haemophilus influenz ae type b vaccine, HbOC conjugate Yoelmargot [facility] OVERHEAD CRANE INSPECTOR.[facility] Work Phone: [facility] Work Phone: 2004 hepatitis B vaccine, pediatric or pediatric/adolescent dosage Yoel Friedalla OVERHEAD CRANE INSPECTOR.DRAPERY CUTTER MACHINE Work Phone: [facility] Work Phone: 2004 pneumococcal conjuga te vaccine, 7 valent Yoelmargot Friedalla OVERHEAD CRANE INSPECTOR.DRAPERY CUTTER MACHINE Work Phone: [facility] Work Phone: 2004 poliovirus vaccine, inactivated Yoelmargot [facility] OVERHEAD CRANE INSPECTOR.[facility] Work Phone: [facility] Work Phone: 2004 hepatitis B vaccine, pediatric or pediatric/adolescent dosage Yoel Friedalla OVERHEAD CRANE INSPECTOR.[facility] Work Phone: [facility] Work Phone: NEGATED: Highlighted row has not occurred!08-31-2024 tetanus toxoid, reduced diphtheria toxoid, and acellular pertussis vaccine, adsorbed Anthony Shank OVERHEAD CRANE INSPECTOR.DRAPERY CUTTER MACHINE Work Phone: [facility] Comment on above: Deferred: Postponed Payers Date Payer Category Payer Unknown [id number] 2024 Medicaid [id number] 2024 Private Health Insurance [id number] 2024 Self-pay [id number] 2022 Unknown [id number] 2019 Private Health Insurance [id number] 2004 Unknown [id number] 2.16. [id number] 2004 Unknown [id number] 2.16.8 [id number] 2004 Unknown [id number] 2.16.8 [id number] 2004 Unknown [id number] 2.16. [id number] 2004 Unknown [id number] 2.16. [id number] 2004 Unknown [id number] 2.16. [id number] 2004 Unknown [id number] 2.16. [id number] 2004 Unknown [id number] 2.16. [id number] 1913 Unknown [id number] 1913 Unknown [id number] Unknown [id number] Unknown [id number] Unknown [id number] 2.16.8 [id number] Unknown [id number] 2.16.8 [id number] Unknown [id number] 2.16.8 [id number] Unknown [id number] 2.16.8 [id number] Unknown [id number] 2.16.8 [id number] Unknown [id number] 2.16.8 [id number] Unknown [id number] 2.16.8 [id number] Social History Date Type Detail Facility Start: 09-18-2021 End: 05-24-2024 Never smoked tobacco (finding) [facility] Start: 2004 Sex Assigned At Female [facility] Start: 01-28-2022 End: 11-21-2023 Tobacco smoking status NHIS Unknown if ever smoked [facility] History of tobacco use Passive smoker [facility] Work Phone: Start: 08-18-2022 End: 05-24-2024 Tobacco use and exposure Smokeless tobacco non-user [facility] Work Phone: Start: 08-18-2022 End: 04-21-2025 Alcohol intake Current non-drinker of alcohol (finding) [facility] Start: 08-18-2022 Tobacco Comment parents smoke outsid e [facility] Start: 2004 Sex Assigned At Not on file [facility] Start: 08-13-2022 End: 09-13-2022 Exposure to SARS-CoV-2 (event) Not sure [facility] Start: 02-28-2024 [facility] Start: 12-06-2022 Tobacco use and exposure User of smokeless tobacco [facility] Start: 12-06-2022 Tobacco Comment vape [facility] Tobacco Nicotine Use: Va ping Product in Last 90 Days. [facility] Tobacco smoking status No Smoking Status Entered [facility] Start: 07-15-2023 End: 04-22-2025 History of Social function [facility] Start: 07-15-2023 End: 04-22-2025 Tobacco use panel [facility] National Score (1-100), lower number is lower risk 92 [facility] Start: 03-17-2024 Alcohol intake Lifetime non-d shar (finding) [facility] Start: 02-10-2025 End: 05-10-2025 Tobacco smoking status NHIS Ex-smoker (finding) [facility] Start: 02-11-2025 Sex Female (finding) [facility] NEGATED: Highlighted row [facility] Medical Equipment Procedure Code Equipment Code Equipment Origin al Text Equipment Identifier Dates Use as directed to check glucose levels up to seven times daily. [id number] Start: 04-07-2024 Use as directed to check glucose levels up to seven times daily. [id number] Start: 04-07-2024 Goals Date Patient Goal Desired Activity /State Personal health goal Personal health goal Functional Status Date Assessment Result Facility 11-10-2024 Are you deaf, or do you have serious difficulty hearing No 11/10/2024 12:07 AM Saira Cyr RN [facility] 11-10-2024 Are you blind, or do you have serious difficulty seeing, even when wearing glasses No 11/10/2024 12:07 AM Saira Cyr RN No [facility] 11-10-2024 Do you have serious difficulty walking or climbing stairs No 11/10/2024 12:07 AM Saira Cyr RN No [facility] 11-10-2024 Do you have difficul ty dressing or bathing No 11/10/2024 12:07 AM Saira Cyr, SCOTT [facility] 11-10-2024 Because of a physica l, mental, or emotional condition, do you have difficulty doing errands alone such as visiting a physician's office or shopping No 11/10/2024 12:07 AM Saira Cyr, SCOTT No [facility] 03-09-2024 Functional Status Independent [facility] 03-09-2024 Functional Status Independent [facility] 12-26-2022 Functional Status Standard Safet y ID band on, Call device within reach, Bed in low position, Wheels locked, Bedside Cart Locked, Visitor at bedside, Safety level maintained [facility] 12-25-2022 Functional Status Ambulating in corral, Ambulating in room, Awake, Bathroom privileges [facility] 12-24-2022 Functional Status Standard Safet y ID band on, Allergy Band on, Call device within reach, Bed in low position, Wheels locked, Upper/Half-Length side-rails up, personal items within reach [facility] 10-14-2022 Functional Status Activity Statu s ADL Sleeping quietly with easy respirations [facility] 10-14-2022 Functional Status Standard Safet y ID band on, Allergy Band on, Call device within reach, Bed in low position, Wheels locked, Upper/Half-Length side-rails up, Bedside Cart Locked, Safety level maintained [facility] 08-21-2022 Functional status Ambulates [facility] Work Phone: Mental Status Date Assessment Result Facility 05-10-2025 Cognitive function Level Of Cons ciousness Awake;Alert;Appropriate;Fol lows Commands [facility] Work Phone: 11-10-2024 Because of a physica l, mental, or emotional condition, do you have serious difficulty concentrating, remembering, or making decisions No 11/10/2024 12:07 AM Saira Cyr RN No [facility] 03-09-2024 Mental Status Orientation Oriented x 4 [facility] 03-09-2024 Mental Status [facility] 06-09-2023 Cognitive function Voice/Name [facility] Work Phone: 12-26-2022 Cognitive function Awake;Alert;A ppropriate;Fol lows Commands [facility] 12-25-2022 Mental Status Orientation Oriented x 4 [facility] 12-24-2022 Mental Status [facility] 12-10-2022 Cognitive function Level Of Cons ciousness Awake;Alert;Appropriate;Fol lows Commands [facility] Work Phone: 10-14-2022 Mental Status Orientation Oriented x 4 [facility] 08-21-2022 Cognitive function Voice/Name [facility] Work Phone: 08-06-2022 Cognitive function Level Of Cons ciousness Awake;Alert;Appropriate;Fol lows Commands [facility] Work Phone: 06-28-2022 Cognitive function Level Of Cons ciousness Awake;Alert;Appropriate;Fol lows Commands [facility] Work Phone: Clinical Notes 09-18-2021 to 05-31-2025 Akiko Maynard, PT - 05/31/2025 1:43 PM EDAkiko Ann, PT - 05/31/2025 1:28 PM EDT Note Date & Type Note Facility 05-31-2025 History of Present illness Narrative Program_ID:[id number] Access Code: [email or web address] URL: [email or web address] Date: 05-31-2025 Prepared By: Akiko Maynard Program Notes Exercises - Seated Ankle Pumps on Table - 2 x daily - 7 x weekly - 2 sets - 20 reps - Seated Ankle Inversion Eversion AROM - 2 x daily - 7 x weekly - 2 sets - 20 reps - Seated Ankle Circles - 2 x daily - 7 x weekly - 2 sets - 20 reps - Seated Calf Stretch with Strap - 2 x daily - 7 x weekly - 1 sets - 3 reps Images from the original note were not included. Episode Visit Count: 1 Therapist That Will Accept/Oversee The Plan Of Care: Akiko Maynard Start of Care Date: 05/31/25 Onset Date: 04/21/25 Plan of Care Certification Date: 05/31/25 Next Certification Due Date: 07/12/25 Patient Identified by Name and Date of : Yes REHABILITATION AND SPORTS THERAPY PHYSICAL THERAPY EVALUATION PLAN OF CARE: Assessment: Rosy Dominique presents with diagnosis of acute L ankle pain, closed fx of MT bone of left foot, nondisplaced fx of prox phalanx of great toe, pain in left foot that interferes with walking, walking in the community, walking in the house, standing . The patient presents with impairments in ADL's, balance, gait, independence in exercise, joint mobility, overall function, patient reported outcome measures, range of motion, strength, symptom management, and tissue tenderness. PROMIS (Patient-Reported Outcomes Measurement Information System) scores were reviewed and identified as a rehabilitation concern. Prognosis for therapy is Good due to: current objective clinical presentation . The patient will benefit from skilled therapy services to meet the goals established for this plan of care as noted below. Goals for Episode of Care: established 05/31/25 [place] in home exercise program. Patient will decrease pain to 1-2/10 with functional activities to allow patient to improve ambulation, transfers, and standing tolerance for ADLs. Patient will increase active ROM of LLE ankle DF to 20 degrees or greater to allow pt to to improve postural alignment, to improve performance of ADLs, and to improve gait mechanics / gait pattern . Patient will demonstrate increase in L ankle DF strength to 4/5 during manual muscle testing in order to improve function for prior functional tasks. Patient will increase flexibility of L gastrocnemius to WNL to improve ability to maintain proper posture, improve mechanics, and decrease pain. Perform community distance ambulation with decreased report of symptoms/pain in 6 weeks. Normal gait. Patient Goals: restore functional strength and mobility of the LLE foot/ankle Time Frame for Goals and Treatment : 07/12/25 Planned Interventions, Frequency, and Duration: Current Frequency: 1x/week Duration: 6 weeks Total Number of Visits Planned: 6 Planned Treatment Interventions: Gait Training (39191), Self-retirement management (45904), Therapeutic activities (37725), Manual therapy (30968), Neuromuscular re-education (41694), Therapeutic exercise (66552) PLAN FOR NEXT VISIT: measure AROM, isometric strengthening Patient demonstrates good understanding of plan of care and treatment. The above goals and plan of care were discussed and agreed upon by patient/family. SUBJECTIVE: for L foot fx. Pt. reports having 3 L foot fractures over the past year. Routine healing for previous fx. No previous surgeries or PT. No longer getting pain in her calf. Denies pain today. Presents in boot. 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 5 points is clinically meaningfully difference Percentiles provide an indication of how the patient's score ranks in relation to the general population. Higher percentile rankings indicate better function/quality of life. 50th percentile is the average of the general population and indicates half of respondents had a worse score. OBJECTIVE MEASURES WITH LEVEL OF FUNCTION: Ankle Observations Ankle Brace/Support: Boot L Foot Observations: minimal to no swelling Sensation - Lower Extremity LE Light Touch Sensation: Grossly Intact LE AROM L Ankle Dorsiflexion: 17 Degrees L Ankle Plantar Flexion: 50 Degrees L Ankle Inversion: 23 L Ankle Eversion: 14 LE Flexibility Flexibility: Gastrocnemius Flexibility L Gastrocnemius Flexibility: limited LE Strength L Ankle Dorsiflexion (L4): 2+/5 L Ankle Plantar Flexion: 2+/5 L Ankle Inversion: 2+/5 L Ankle Eversion: 2+/5 Gait Gait: Independent Gait Distance (feet): 50 Gait Device: None Gait Deviations: General Deviations Gait Observation: max juarez, Education: Education Learning Preferences: Demonstration, Explanation, Performance, Printed Materials Barriers: Acuity of Illness Learning/educational needs: Home exercise program, Plan of Care, Posture, Gait Training Education Provided: Yes, see treatment interventions for education provided Education Provided To: Patient Education Mode/Type: Demonstration, Explanation/Discussion, Literature/Printed Materials, Performance Response to Education/Teach Back: States/Identifies, Return Demonstration TREATMENT: PT Treatment Interventions: Therapeutic Exercise, Self-Chcf Management Evaluation Therapeutic Exercise: 1: *Access Code: [email or web address] URL: [email or web address] Date: 05/31/2025 Prepared by: Akiko Wang Exercises - Seated Ankle Pumps on Table - 2 x daily - 7 x weekly - 2 sets - 20 reps - Seated Ankle Inversion Eversion AROM - 2 x daily - 7 x weekly - 2 sets - 20 reps - Seated Ankle Circles - 2 x daily - 7 x weekly - 2 sets - 20 reps - Seated Calf Stretch with Strap - 2 x daily - 7 x weekly - 1 sets - 3 reps - 30 hold Skilled Intervention: Patient was educated in proper exercise technique and purpose for exercises. Skilled judgment was used in selection of appropriate interventions. Provided written instruction for home exercise program to facilitate proper performance and compliance. Correct performance of therapeutic exercises was facilitated with verbal, visual, and tactile cuing. Educated patient on rationale for performing exercises in regards to decreasing fatigue , increase ease of ADL, and ROM and function . Patient education as noted. Self-Chcf Management: 1: discussed elevation and ice application 2: discussed normal ROM values for the ankle and pt. current mobility Skilled Intervention: Skilled judgment in the selection of proper modification for activity of daily living/home management based on clinical presentation, deficits, and needs. Provided written instruction for activities of daily living techniques to facilitate proper performance and compliance. Activity progression based on professional judgement. Billing * Evaluation Low Complexity: 1 Unit Therapeutic Exercise Treatment Minutes: 8 Self-Care/Home Management Treatment Minutes: 1 Skilled Treatment Time Minutes (timed and untimed codes): 27 Total Session Time (minutes): 27 Session Start Time : 1321 Session Stop Time : 1348 Akiko Maynard PT documented in this encounter [facility] 05-31-2025 Note HNO ID: [id number] Author: AKIKO MAYNARD PT Service: ? Author Type: Physical Therapist Type: Progress Notes Filed: 05/31/2025 13:55 Note Text: Episode Visit Count: 1 Therapist That Will Accept/Oversee The Plan Of Care: Akiko Maynard Start of Care Date: 05/31/25 Onset Date: 04/21/25 Plan of Care Certification Date: 05/31/25 Next Certification Due Date: 07/12/25 Patient Identified by Name and Date of : Yes REHABILITATION AND SPORTS THERAPY PHYSICAL THERAPY EVALUATION PLAN OF CARE: Assessment: Rosy Dominique presents with diagnosis of acute L ankle pain, closed fx of MT bone of left foot, nondisplaced fx of prox phalanx of great toe, pain in left foot that interferes with walking, walking in the community, walking in the house, standing . The patient presents with impairments in ADL's, balance, gait, independence in exercise, joint mobility, overall function, patient reported outcome measures, range of motion, strength, symptom management, and tissue tenderness. PROMIS? (Patient-Reported Outcomes Measurement Information System) scores were reviewed and identified as a rehabilitation concern. Prognosis for therapy is Good due to: current objective clinical presentation . The patient will benefit from skilled therapy services to meet the goals established for this plan of care as noted below. Goals for Episode of Care: established 05/31/25 [place] in home exercise program. Patient will decrease pain to 1-2/10 with functional activities to allow patient to improve ambulation, transfers, and standing tolerance for ADLs. Patient will increase active ROM of LLE ankle DF to 20 degrees or greater to allow pt to to improve postural alignment, to improve performance of ADLs, and to improve gait mechanics / gait pattern . Patient will demonstrate increase in L ankle DF strength to 4/5 during manual muscle testing in order to improve function for prior functional tasks. Patient will increase flexibility of L gastrocnemius to WNL to improve ability to maintain proper posture, improve mechanics, and decrease pain. Perform community distance ambulation with decreased report of symptoms/pain in 6 weeks. Normal gait. Patient Goals: restore functional strength and mobility of the LLE foot/ankle Time Frame for Goals and Treatment : 07/12/25 Planned Interventions, Frequency, and Duration: Current Frequency: 1x/week Duration: 6 weeks Total Number of Visits Planned: 6 Planned Treatment Interventions: Gait Training (97297), Self-retirement management (82316), Therapeutic activities (76371), Manual therapy (41841), Neuromuscular re-education (18915), Therapeutic exercise (48012) PLAN FOR NEXT VISIT: measure AROM, isometric strengthening Patient demonstrates good understanding of plan of care and treatment. The above goals and plan of care were discussed and agreed upon by patient/family. SUBJECTIVE: for L foot fx. Pt. reports having 3 L foot fractures over the past year. Routine healing for previous fx. No previous surgeries or PT. No longer getting pain in her calf. Denies pain today. Presents in boot. 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 5 points is clinically meaningfully difference Percentiles provide an indication of how the patient's score ranks in relation to the general population. Higher percentile rankings indicate better function/quality of life. 50th percentile is the average of the general population and indicates half of respondents had a worse score. OBJECTIVE MEASURES WITH LEVEL OF FUNCTION: Ankle Observations Ankle Brace/Support: Boot L Foot Observations: minimal to no swelling Sensation - Lower Extremity LE Light Touch Sensation: Grossly Intact LE AROM L Ankle Dorsiflexion: 17 Degrees L Ankle Plantar Flexion: 50 Degrees L Ankle Inversion: 23 L Ankle Eversion: 14 LE Flexibility Flexibility: Gastrocnemius Flexibility L Gastrocnemius Flexibility: limited LE Strength L Ankle Dorsiflexion (L4): 2+/5 L Ankle Plantar Flexion: 2+/5 L Ankle Inversion: 2+/5 L Ankle Eversion: 2+/5 Gait Gait: Independent (more content not included)... [facility] 05-10-2025 Discharge summary Note Date/Time May 10, 2025 1:37p m [facility] Medical Records Department [address] [place] [address] Emergency Department Summary 05/10/25 MR#: [id number] Acct: [id number] Name: ROSY DOMINIQUE Rep #:[id number] : 2005 19 From: Max Young MD PCP: Dr. Florentin Toribio, DO Status:PRE ER Location: ED HPI History of Present Illness Chief Complaint: General Illness Detail of Chief Complaint: Electrical accident at work. Currently no complaintsor symptoms. Informant: patient Onset/Context/Timing Onset: Today and Hours Context: Sudden Onset Current Severity: Gone Maximum Severity: Mild Narrative Narrative: 19-year-old female states that she works at [employer]. She was unplugging a mixer and believes she may have got shocked on her right hand. This occurred at 930 this morning about 4 hours ago. Currently she has no complaints. She went to an urgent care they sent her to the emergency department. Currently she is symptom-free. Prior similar symptoms: No Recent Illness/Hospitalization: No PFSH PFSH Medical History Low back pain during Diabetes type I Seasonal allergies Seizure Breast abscess Lump of breast Mastitis Breech presentation Premature rupture of membranes Toxoplasmosis affecting Positive GBS test Supervision of normal first teen POTS (postural orthostatic tachycardia syndrome) Home Medications ?Medication ?Instructions ?Recorded ?Last Taken ?Type norethindrone (contraceptive) 0.35 0.35 mg PO DAILY Unknown History mg tablet (Jencycla) Allergy/AdvReac Type Severity Reaction Status Date / Time amoxicillin Allergy Rash Verified 05/10/25 13:15 coconut Allergy Anaphylaxis Verified 05/10/25 13:15 dexmethylphenidate Allergy Itching Verified 05/10/25 13:15 hydrocodone Allergy Rash Verified 05/10/25 13:15 latex Allergy skin Verified 05/10/25 13:15 hayes, headaches onion Allergy Shortness Verified 05/10/25 13:15 of breath vancomycin Allergy Rash Verified 05/10/25 13:15 Anesthetics - Amide Type - AdvReac Severe Anaphylaxis Verified 05/10/25 13:15 Select A (anesthesia) Family History Mother POTS (postural orthostatic tachycardia syndrome) Autism Grandmother Breast cancer Thyroid disorder Skin cancer Sister Autism Son Autism Surgical History H/O laparoscopy Status post delivery Social History adopted: Yes household members: significant other, family and children number of children: 1 current occupational status: employed current occupation: [employer] pets and animals: Yes (Avoid litterbox) pets and animals: cat(s) and dog(s) history of recent travel: No sexually active: Yes Smoking Status: Former smoker quit date: 01/12/24 Electronic Cigarette Use: with nicotine alcohol intake: never substance use type: does not use well-balanced diet: daily or most days caffeine: Yes (not while ) Type: tea Number of servings: 1 eating out: rarely or never what type of physical activity do you participate in: none hayden/episcopalian: None seatbelt use: always do you feel safe at home: Yes 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 Denies any complaints currently. Constitutional Constitutional ED: Denies chills or fever(s) Eyes Eyes: Denies blurry vision ENT ENT ED: Denies ear pain Cardiovascular Cardiovascular: Denies chest pain Respiratory/Chest Respiratory/Chest: Denies cough or dyspnea Gastrointestinal Gastrointestinal: Denies abdominal pain Genitourinary Genitourinary ED: Denies dysuria or hematuria Musculoskeletal Musculoskeletal: Denies arthralgias or back pain Integumentary Denies abscess or Abrasions Neurologic Neurologic: Denies headache(s) Psychiatric Psychiatric: Denies anxiety or depression Endocrine Endocrinology: Denies cold intolerance Hematologic/Lymphatic Hematologic/Lymphatic: Reports none Allergic/Immunologic Allergic/Immunologic ED: Denies mouth swelling, tongue swelling or urticaria EXAM Physical Exam Narrative Exam Narrative: Well-appearing 19-year-old female. Vital signs stable afebrile. No acute distress. H EENT exam pupils round reactive light. Moist mucous membranes. Posterior pharynx unremarkable. Neck nontender. No lymphadenopathy. Lungs clear to auscultation. Heart regular rhythm rate about 60 no murmur. Chest wall and ribs nontender. Abdomen soft nontender. Moving all 4 extremities. Nontender no edema. Right hand specifically there is no signs of burn florentin or any trauma. There is no redness. Normal range of motion. No swelling. Other extremities nontender normal range of motion. No edema. Back nontender. Neurologically patient awake alert. Answer questions following commands. Very benign exam. Const Vital Signs: 05/10/25 13:14 Temperature 98 F Temperature Source Temporal Pulse Rate 58 L Respiratory Rate 14 Blood Pressure 120/78 Blood Pressure Mean 92 Pulse Ox 98 Oxygen Delivery Method Room Air Positive well nourished and well developed; Negative for obese, cachectic, contractures or unkempt General Appearance ED: well developed and NAD; Negative for unkempt, cachectic, contractures, cyanotic, diaphoretic or pallor Nutritional Appearance: Negative for cachectic or obese HEENT Reports moist mucous membranes Negative for trauma Eyes PERRL and EOMs intact bilaterally Neck no lymphadenopathy, supple and no JVD General: Negative for tenderness Chest Wall inspection of chest normal and palpation of chest normal Resp normal respiratory effort and clear to auscultation bilaterally Effort and Inspection: Negative for retractions Auscultation: Negative for rales, rhonchi, wheezes or diminished lung sounds Cardio regular rate, regular rhythm, S1 normal heart sound, S2 normal heart sound and no murmurs GI normal to inspection, nondistended, normoactive bowel sounds, non-tender, non-distended and no masses Palpation: soft; Negative for tender, guarding or rebound tenderness present Back/Spine no CVA tenderness General Back: Negative for CVA tenderness Cervical Spine: Negative for cervical spine tenderness Extremity normal to inspection Neuro oriented x3, CN's II-XII intact bilaterally and no sensory deficits noted Sensorium / Orientation: alert; Negative for orientation impaired or lethargic Motor Exam: strength 5/5 throughout Psych mental status grossly normal Appearance: Negative for unkempt Skin no rashes or lesions noted, no wounds and skin turgor normal General Skin Exam: elasticity normal; Negative for jaundice or pallor Lesions: No lesion noted Rashes: No rashes noted Trauma: Negative for abrasion Wounds: Negative for wounds noted Discharge Plan Triage Chief Complaint: General Illness ED Provider: Max Young Dx/Rx/DC Orders Clinical Impression: Electrocution Instructions: ED Electrical Injury Prescriptions: No Action norethindrone (contraceptive) [Jencycla] 0.35 mg tablet 0.35 mg PO DAILY Primary Care Provider: Florentin Toribio Referrals: [facility] [Group of Physicians] - As Needed Florentin Toribio DO [Primary Care Provider] - As Needed Activity Restrictions/Additional Instructions: Motrin or Tylenol for any pain. Follow-up as needed. May return to work with normal work activities. Print Language: [place] Korean Disposition Disposition: Home, Self Care What to do if you have Problems For any increased pain, shortness of breath, bleeding, nausea or vomiting, chestpain, or any unexpected problems, contact your Primary Care Provider. Call [facility] ([phone]) or report to the closest Emergency Room. Call 911 if necessary. 05/10/25 1937 <Electronically signed by Max Young MD> Cosigner Signature (if applicable): CC: Dr. Florentin Toribio DO ~ Signed [facility] Work Phone: [phone]) 742-629107-01-2025 Discharge summary [facility] Medical Records Department [address] [place] [id number] Emergency Department Summary 05/10/25 MR#: [id number] Acct: [id number] Name: ROSY DOMINIQUE Rep #:[id number] 0 : 2005 19 From: Max Young MD PCP: Dr. Florentin Toribio DO Status:PRE ER Location: ED HPI History of Present Illness Chief Complaint: General Illness Detail of Chief Complaint: Electrical accident at work. Currently no complaintsor symptoms. Informant: patient Onset/Context/Timing Onset: Today and Hours Context: Sudden Onset Current Severity: Gone Maximum Severity: Mild Narrative Narrative: 19-year-old female states that she works at [employer]. She was unplugging a mixer and believes she may have got shocked on her right hand. This occurred at 930 this morning about 4 hours ago. Currently she has no complaints. She went to an urgent care they sent her to the emergency department. Currently she is symptom-free. Prior similar symptoms: No Recent Illness/Hospitalization: No PFSH PFS Medical History Low back pain during Diabetes type I Seasonal allergies Seizure Breast abscess Lump of breast Mastitis Breech presentation Premature rupture of membranes Toxoplasmosis affecting Positive GBS test Supervision of normal first teen POTS (postural orthostatic tachycardia syndrome) Home Medications ?Medication ?Instructions ?Recorded ?Last Taken ?Type norethindrone (contraceptive) 0.35 0.35 mg PO DAILY Unknown History mg tablet (Jencycla) Allergy/AdvReac Type Severity Reaction Status Date / Time amoxicillin Allergy Rash Verified 05/10/25 13:15 coconut Allergy Anaphylaxis Verified 05/10/25 13:15 dexmethylphenidate Allergy Itching Verified 05/10/25 13:15 hydrocodone Allergy Rash Verified 05/10/25 13:15 latex Allergy skin Verified 05/10/25 13:15 hayes, headaches onion Allergy Shortness Verified 05/10/25 13:15 of breath vancomycin Allergy Rash Verified 05/10/25 13:15 Anesthetics - Amide Type - AdvReac Severe Anaphylaxis Verified 05/10/25 13:15 Select A (anesthesia) Family History Mother POTS (postural orthostatic tachycardia syndrome) Autism Grandmother Breast cancer Thyroid disorder Skin cancer Sister Autism Son Autism Surgical History H/O laparoscopy Status post delivery Social History adopted: Yes household members: significant other, family and children number of children: 1 current occupational status: employed current occupation: [employer] pets and animals: Yes (Avoid litterbox) pets and animals: cat(s) and dog(s) history of recent travel: No sexually active: Yes Smoking Status: Former smoker quit date: 01/12/24 Electronic Cigarette Use: with nicotine alcohol intake: never substance use type: does not use well-balanced diet: daily or most days caffeine: Yes (not while ) Type: tea Number of servings: 1 eating out: rarely or never what type of physical activity do you participate in: none hayden/episcopalian: None seatbelt use: always do you feel safe at home: Yes 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 Denies any complaints currently. Constitutional Constitutional ED: Denies chills or fever(s) Eyes Eyes: Denies blurry vision ENT ENT ED: Denies ear pain Cardiovascular Cardiovascular: Denies chest pain Respiratory/Chest Respiratory/Chest: Denies cough or dyspnea Gastrointestinal Gastrointestinal: Denies abdominal pain Genitourinary Genitourinary ED: Denies dysuria or hematuria Musculoskeletal Musculoskeletal: Denies arthralgias or back pain Integumentary Denies abscess or Abrasions Neurologic Neurologic: Denies headache(s) Psychiatric Psychiatric: Denies anxiety or depression Endocrine Endocrinology: Denies cold intolerance Hematologic/Lymphatic Hematologic/Lymphatic: Reports none Allergic/Immunologic Allergic/Immunologic ED: Denies mouth swelling, tongue swelling or urticaria EXAM Physical Exam Narrative Exam Narrative: Well-appearing 19-year-old female. Vital signs stable afebrile. No acute distress. H EENT exam pupils round reactive light. Moist mucous membranes. Posterior pharynx unremarkable. Neck nontender. No lymphadenopathy. Lungs clear to auscultation. Heart regular rhythm rate about 60 no murmur. Chest wall and ribs nontender. Abdomen soft nontender. Moving all 4 extremities. Nontender no edema. Right hand specifically there is no signs of burn florentin or any trauma. There is no redness. Normal range of motion. No swelling. Other extremities nontender normal range of motion. No edema. Back nontender. Neurologically patient awake alert. Answer questions following commands. Very benign exam. Const Vital Signs: 05/10/25 13:14 Temperature 98 F Temperature Source Temporal Pulse Rate 58 L Respiratory Rate 14 Blood Pressure 120/78 Blood Pressure Mean 92 Pulse Ox 98 Oxygen Delivery Method Room Air Positive well nourished and well developed; Negative for obese, cachectic, contractures or unkempt General Appearance ED: well developed and NAD; Negative for unkempt, cachectic, contractures, cyanotic, diaphoretic or pallor Nutritional Appearance: Negative for cachectic or obese HEENT Reports moist mucous membranes Negative for trauma Eyes PERRL and EOMs intact bilaterally Neck no lymphadenopathy, supple and no JVD General: Negative for tenderness Chest Wall inspection of chest normal and palpation of chest normal Resp normal respiratory effort and clear to auscultation bilaterally Effort and Inspection: Negative for retractions Auscultation: Negative for rales, rhonchi, wheezes or diminished lung sounds Cardio regular rate, regular rhythm, S1 normal heart sound, S2 normal heart sound and no murmurs GI normal to inspection, nondistended, normoactive bowel sounds, non-tender, non- distended and no masses Palpation: soft; Negative for tender, guarding or rebound tenderness present Back/Spine no CVA tenderness General Back: Negative for CVA tenderness Cervical Spine: Negative for cervical spine tenderness Extremity normal to inspection Neuro oriented x3, CN's II-XII intact bilaterally and no sensory deficits noted Sensorium / Orientation: alert; Negative for orientation impaired or lethargic Motor Exam: strength 5/5 throughout Psych mental status grossly normal Appearance: Negative for unkempt Skin no rashes or lesions noted, no wounds and skin turgor normal General Skin Exam: elasticity normal; Negative for jaundice or pallor Lesions: No lesion noted Rashes: No rashes noted Trauma: Negative for abrasion Wounds: Negative for wounds noted Discharge Plan Triage Chief Complaint: General Illness ED Provider: Max Young Dx/Rx/DC Orders Clinical Impression: Electrocution Instructions: ED Electrical Injury Prescriptions: No Action norethindrone (contraceptive) [Jencycla] 0.35 mg tablet 0.35 mg PO DAILY Primary Care Provider: Florentin Toribio Referrals: [facility] [Group of Physicians] - As Needed Florentin Toribio DO [Primary Care Provider] - As Needed Activity Restrictions/Additional Instructions: Motrin or Tylenol for any pain. Follow-up as needed. May return to work with normal work activities. Print Language: [place] Disposition Disposition: Home, Self Care What to do if you have Problems For any increased pain, shortness of breath, bleeding, nausea or vomiting, chestpain, or any unexpected problems, contact your Primary Care Provider. Call [facility] ([phone]) or report tothe closest Emergency Room. Call 911 if necessary. 05/10/25 [id number] Cosigner Signature (if applicable): CC: Dr. Florentin Toribio DO ~ Signed [facility]07-01-2025 NoteHNO ID: [id number] Author: KEVIN REZA PA Service: ? Author Type: Physician Generalist Type: Progress Notes Filed: 05/10/2025 12:28 Note Text: Patient presents for possible electrocution. Patient was at work today when she felt like she got electrocuted. She has no pain or symptoms. She states that she needs clearance to go back to work. She states that she has heart issues and wanted those to be checked out. Patient also has swollen lymph nodes on the left side of her neck which have been there for about a month. At this time, discussed with patient limitation of express care. Due to potential electrocution at work, I did recommend evaluation in the emergency room. Patient agreeable.[facility]07-01-2025 History of Present illness Narrative* Kevin Reza PA - 05/10/2025 12:27 PM EDT Patient presents for possible electrocution. Patient was at work today when she felt like she got electrocuted. She has no pain or symptoms. She states that she needs clearance to go back to work. She states that she has heart issues and wanted those to be checked out. Patient also has swollen lymph nodes on the left side of her neck which have been there for about a month. At this time, discuss ed with patient limitation of express care. Due to potential electrocution at work, I did recommendevaluation in the emergency room. Patient agreeable. [facility] NoteHNO ID: [id number] Author: ANTHONY COOK APRN.DRAPERY CUTTER MACHINE Service: ? Author Type: Nurse Practitioner Type: Progress Notes Filed: 05/09/2025 09:23 Note Text: Rosy Dominique is a 19 year old female who presents for intermenstrual spotting HPI: She is a 19 year old who presents with c/o of intermenstrual spotting on and off during April LMP 04/03/25, spotting then began 04/18 Positive test 04/27 Continued to have spotting through 05/04 and has since resolved This has happened before and at that time her TSH was noted to be abnormal Some cramping Denies abnormal vaginal discharge OB History Gravida8 Para2 Term0 Preterm2 AB6 Living2 SAB5 IAB1 Ectopic0 Multiple0 Live Births2 Area Intelligence 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 History LMP: 04/03/2025 (Exact Date), Unknown Age at Menarche: 13 Age at First : 14 Age at Menopause: Area Intelligence Technician History Comments: Sexual Activity: Yes; Male Contraception: No contraception data on record PAST MEDICAL HISTORY Diagnosis Date Brugada syndrome Chronic daily headache Complication of anesthesia Diabetes, gestational (HCC) POTS (postural orthostatic tachycardia syndrome) Seizure (HCC) Thyroid disease Trauma PAST SURGICAL HISTORY Procedure Laterality Date SNGL 10/05/2024 DELIVERY ONLY 06/14/2022 L'SCOPE DX W/WO BRUSHINGS/WASHINGS 03/17/2024 [place] to r/o ectopic MASTOTOMY W/EXPLORATION/DRAINAGE ABSCESS DEEP Right 08/18/2022 FAMILY HISTORY Adopted: Yes Problem Relation Age of Onset None Mother Ovarian cancer Mother 20 Cervical Cancer Mother 20 Autism Mother None Father Autism Sister Autism Brother Blood Clots Maternal Aunt Breast Cancer Maternal Grandmother 48 Skin Cancer Maternal Grandmother Thyroid Maternal Grandmother Skin Cancer Maternal Grandfather Heart Attack Maternal Grandfather Diabetes Paternal Grandfather Social History Tobacco Use Smoking status: Never Passive exposure: Yes Smokeless tobacco: Never Tobacco comments: vape Vaping Use Vaping status: Former Substances: Nicotine Substance Use Topics Alcohol use: No Drug use: Never Current Outpatient Medications Medication Sig topiramate (TOPAMAX) 25 mg capsule Take 25 mg by mouth once daily. (Patient not taking: Reported on 05/09/2025) Norethindrone, Contraceptive, 0.35 mg tablet Take 1 tablet by mouth once daily. (Patient not taking: Reported on 01/13/2025) gabapentin (NEURONTIN) 300 mg capsule Take 1 capsule by mouth three times a day for 90 days. (Patient taking differently: Take 300 mg by mouth as needed.) vit calc,iron,folic (PRENAT.VITS,ANISH,WAS-MPFO-EIAQM ORAL) Take by mouth once daily. (Patient not taking: Reported on 01/13/2025) No current facility-administered medications for this visit. Allergies As of Date: 05/09/2025 Allergen Noted Reaction AMOXICILLIN 08/18/2022 Rash, GI Upset, and Unknown ANESTHETICS - AMIDE TYPE - SELECT*04/12/2024 Other: See Comments BUPIVACAINE 08/23/2022 Shortness of Breath CHLOROPROCAINE 08/23/2022 Shortness of Breath COCONUT 06/14/2022 Anaphylaxis and Unknown DEXAMETHASONE 12/08/2022 Itching HYDROCODONE 08/18/2022 Itching and Unknown LATEX 12/19/2021 Other: See Comments and Unknown LIDOCAINE 08/23/2022 Shortness of Breath ONION EXTRACT 04/12/2024 Other: See Comments VANCOMYCIN 08/20/2022 Rash and Other: See Comments VICODIN [HYDROCODONE-ACETAMINOPHE*08/18/2022 Rash Fully Assessed 05/09/2025 REVIEW OF SYSTEMS Abdomen: No bloating, early satiety, indigestion, or increased flatulence. No abdominal pain, nausea, vomiting, diarrhea, or constipation. Bladder: No dysuria, gross hematuria, urinary frequency, urinary urgency, or incontinence. Breast: No breast lumps, nipple d/c, overlying skin changes, redness or skin retraction. Expanded ROS: N/A Allergies and current medication updated:Yes SENSITIVE EXAM: Sensitive exam declined. Discussed rationale and impact on treatment. EXAM: BP 99/65 Pulse 88 Wt 124 lb 6.4 oz (56.4kg) LMP 04/03/2025 GENERAL: pleasant female in no apparent distress NECK: thyroid normal, no lymphadenopathy CHEST: Normal inspiratory effort NEURO: alert and oriented x3 EXTREMITIES: normal ASSESSMENT AND PLAN: Assessment AND Plan Abnormal uterine bleeding (AUB) Orders: UA DIP,URINE HCG (POC) GONORRHEA/CHLAMYDIA NAAT THYROID STIMULATING HORMONE T4 FREE/FREE THYROXINE COMPLETE BLOOD COUNT TRICHOMONAS VAGINALIS NAAT Reports intermenstrual spotting 04/18-05/04 and positive test on 04/27 No bleeding since 05/04 Hx of abnormal TSH Not using hormonal contraception Urine hcg negative today Will check TSH/ T4, CBC and send urine to screen for STI Keep menstrual log Advise daily PNV if not preventing Follow up pending results and in July for WWE/PAP Anthony Cook APRN.[facility]06-30-2025 History of Present illness Narrative* Anthony Cook APRN.[facility] - 05/09/2025 8:58 AM EDT Rosy Dominique is a 19 year old female who presents for intermenstrual spotting HPI: She is a 19 year old who presents with c/o of intermenstrual spotting on and off during April LMP 04/03/25, spotting then began 04/18 Positive test 04/27 Continued to have spotting through 05/04 and has since resolved This has happened before and at that time her TSH was noted to be abnormal Some cramping Denies abnormal vaginal discharge OB History Gravida8 Para2 Term0 Preterm2 AB6 Living2 SAB5 IAB1 Ectopic0 Multiple0 Live Births2 Area Intelligence Technician History LMP: 04/03/2025 (Exact Date), Unknown Age at Menarche: 13 Age at First : 14 Age at Menopause: Area Intelligence Technician History Comments: Sexual Activity: Yes; Male Contraception: No contraception data on record PAST MEDICAL HISTORY Diagnosis Date Brugada syndrome Chronic daily headache Complication of anesthesia Diabetes, gestational (HCC) POTS (postural orthostatic tachycardia syndrome) Seizure (HCC) Thyroid disease Trauma PAST SURGICAL HISTORY Procedure Laterality Date SNGL 10/05/2024 DELIVERY ONLY 06/14/2022 L'SCOPE DX W/WO BRUSHINGS/WASHINGS 03/17/2024 [place] to r/o ectopic MASTOTOMY W/EXPLORATION/DRAINAGE ABSCESS DEEP Right 08/18/2022 FAMILY HISTORY Adopted: Yes Problem Relation Age of Onset None Mother Ovarian cancer Mother 20 Cervical Cancer Mother 20 Autism Mother None Father Autism Sister Autism Brother Blood Clots Maternal Aunt Breast Cancer Maternal Grandmother 48 Skin Cancer Maternal Grandmother Thyroid Maternal Grandmother Skin Cancer Maternal Grandfather Heart Attack Maternal Grandfather Diabetes Paternal Grandfather Social History Tobacco Use Smoking status: Never Passive exposure: Yes Smokeless tobacco: Never Tobacco comments: vape Vaping Use Vaping status: Former Substances: Nicotine Substance Use Topics Alcohol use: No Drug use: Never Current Outpatient Medications Medication Sig topiramate (TOPAMAX) 25 mg capsule Take 25 mg by mouth once daily. (Patient not taking: Reported on05/09/2025) Norethindrone, Contraceptive, 0.35 mg tablet Take 1 tablet by mouth once daily. (Patient not taking: Reported on 01/13/2025) gabapentin (NEURONTIN) 300 mg capsule Take 1 capsule by mouth three times a day for 90 days. (Patient taking differently: Take 300 mg by mouth as needed.) vit calc,iron,folic (PRENAT.VITS,ANISH,MIX-[id number] ORAL) Take by mouth once daily. (Patient not taking: Reported on 01/13/2025) No current facility-administered medications for this visit. Allergies As of Date: 05/09/2025 Allergen Noted Reaction AMOXICILLIN 08/18/2022 Rash, GI Upset, and Unknown ANESTHETICS - AMIDE TYPE - SELECT*04/12/2024 Other: See Comments BUPIVACAINE 08/23/2022 Shortness of Breath CHLOROPROCAINE 08/23/2022 Shortness of Breath COCONUT 06/14/2022 Anaphylaxis and Unknown DEXAMETHASONE 12/08/2022 Itching HYDROCODONE 08/18/2022 Itching and Unknown LATEX 12/19/2021 Other: See Comments and Unknown LIDOCAINE 08/23/2022 Shortness of Breath ONION EXTRACT 04/12/2024 Other: See Comments VANCOMYCIN 08/20/2022 Rash and Other: See Comments VICODIN [HYDROCODONE-ACETAMINOPHE*08/18/2022 Rash Fully Assessed 05/09/2025 REVIEW OF SYSTEMS Abdomen: No bloating, early satiety, indigestion, or increased flatulence. No abdominal pain, nausea, vomiting, diarrhea, or constipation. Bladder: No dysuria, gross hematuria, urinary frequency, urinary urgency, or incontinence. Breast: No breast lumps, nipple d/c, overlying skin changes, redness or skin retraction. Expanded ROS: N/A Allergies and current medication updated:Yes SENSITIVE EXAM: Sensitive exam declined. Discussed rationale and impact on treatment. EXAM: BP 99/65 Pulse 88 Wt 124 lb 6.4 oz (56.4kg) LMP 04/03/2025 GENERAL: pleasant female in no apparent distress NECK: thyroid normal, no lymphadenopathy CHEST: Normal inspiratory effort NEURO: alert and oriented x3 EXTREMITIES: normal ASSESSMENT AND PLAN: Assessment & Plan Abnormal uterine bleeding (AUB) Orders: UA DIP,URINE HCG (POC) GONORRHEA/CHLAMYDIA NAAT THYROID STIMULATING HORMONE T4 FREE/FREE THYROXINE COMPLETE BLOOD COUNT TRICHOMONAS VAGINALIS NAAT Reports intermenstrual spotting 04/18-05/04 and positive test on 04/27 No bleeding since 05/04 Hx of abnormal TSH Not using hormonal contraception Urine hcg negative today Will check TSH/ T4, CBC and send urine to screen for STI Keep menstrual log Advise daily PNV if not preventing Follow up pending results and in July for WWE/PAP Anthony Cook APRN.DRAPERY CUTTER MACHINE * Millicent Lomax MA - 05/09/2025 8:27 AM EDT Patient presents for bleeding in between cycles. Patient reports recent miscarriage approximately 2weeks ago. Patient has thyroid concerns. Millicent Lomax MA May 09, 2025 8:28 AM documented in this [facility]25 NoteHNO ID: [id number] Author: MILLICENT LOMAX MA Service: ? Author Type: Equipment Installation Professional Type: Progress Notes Filed: 05/09/2025 09:23 Note Text: Patient presents for bleeding in between cycles. Patient reports recent miscarriage approximately 2 weeks ago. Patient has thyroid concerns. Millicent Lomax MA May 09, 2025 8:28 [facility]06-20-2025 Instructions* Patient Instructions* Isaura Lopez, SUSAN.DRAPERY CUTTER MACHINE - 04/29/2025 11:17 AM EDT We discussed your foot injury: - You have two fractures in your toes, which were confirmed on your x-ray. I showed you the images during the visit. - Your ankle x-ray showed no fractures or abnormalities. - It will take approximately 6-8 weeks for your fractures to heal. You injured yourself on August 21, and today is August 29, so you are one week into the healing process. - Continue using crutches for one more week. After that, you can begin applying weight to your footas tolerated. - Continue wearing the boot as instructed. You are familiar with its use, including deflating and inflating it. We discussed pain management and supplements: - Take Tylenol (acetaminophen) for pain. You may take two tablets every 8 hours as needed. - Avoid ibuprofen, as it can slow down the healing process. - Start taking a vitamin D supplement to support bone healing. We discussed blood clot prevention: - Since you are on control, your risk of blood clots is slightly increased while you are non-weight bearing. To reduce this risk, take aspirin as directed until you begin applying weight to your foot. - Watch for signs of a blood clot, including swelling, tenderness, or pain in your calf. If you notice these symptoms, visit urgent care or send me a message immediately. I will order an ultrasound if needed. We discussed physical therapy: - I am placing an order for physical therapy to address potential weakness in your ligaments and tendons from prolonged boot use. - Schedule your physical therapy to begin two weeks from today (September 12). Do not start earlier. We discussed follow-up: - I will see you again in four weeks (September 26) to assess your progress. Bring a shoe with youto this appointment, as we may transition you out of the boot depending on your x-ray results and how you feel. Additional instructions: - Use ice to help with pain and swelling as needed. - Avoid smoking or vaping, as these can delay healing. If you have any questions or concerns, please send me a message through [employer]. Otherwise, I will see you at your follow-up appointment in four weeks. documented in this encounterU[facility] Center06-20-2025 NoteHNO ID: [id number] Author: ISAURA LOPEZ APRN.JANESSA Service: ? Author Type: Nurse Practitioner Type: Progress Notes Filed: 04/29/2025 11:17 Note Text: [facility] - New Patient Visit Consultation requested by Maria Guadalupe Cunningham [address] [facility] [address] for an opinion regarding Ms. Rosy Dominique, and my final recommendations will be communicated back to the requesting physician by way of shared medical record or letter via [place] mail. CHIEF COMPLAINT: Left foot fracture HISTORY OF PRESENT ILLNESS: Rosy Dominique is a 19-year-old female presenting for evaluation of foot fractures sustained during a fall. Rosy reports sustaining two foot fractures on 08/21/2023, following a fall while attempting a flip. She landed on her toes, resulting in immediate pain. She presented to the hospital, where she was evaluated and provided with a boot and crutches. Rosy has been using the crutches consistently since the injury. She reports persistent pain in the foot, for which she has been taking Tylenol and ibuprofen alternately every 6 hours. She also reports pain radiating to the ankle, for which an x-ray was performed today. She denies smoking or vaping. Rosy is currently on control and is not . She has a history of a previous foot fracture, for which she was out of a boot for 3 weeks before sustaining the current injury. Location of Pain: Left foot The pain is present yes The pain is a 1/10 at its best, and 4/10 at its worst. They denies nocturnal pain. Treatments Tried: Ice: No NSAIDs: Yes Brace: Tall pneumatic boot and aluminum crutches Injections: No Physical Therapy: No Surgeries: No Occupation: N/A Activities: na Smoking: No Personal or Family Hx of DVT/PE: no Diabetic: no Last Hgba1c: Hemoglobin A1C (%) Date Value 04/08/2024 4.9 PHYSICAL EXAMINATION: General: no acute distress HENT: head normocephalic, mouth mucous membranes are moist. Eyes: extraocular movements intact, pupils are equal, round, and reactive to light. Cardiovascular: normal pulses Pulmonary: normal work of breathing on room air Skin: capillary refill takes less than 2 seconds Neurological: AOx4, follows commands Musculoskeletal: Left lower extremity Inspection: No obvious deformity noted Palpation: Left foot ROM: WNL Neuro: sensation intact in the superficial peroneal, deep peroneal, tibial, sural, and saphenous nerve distributions Vascular: DP pulse present, 2+ Compartments: compartments of leg are soft and compressible IMAGING: Small nondisplaced avulsion fracture at the medial aspect of the left great toe proximal central base. 2. Minimally impacted fracture of the left second metatarsal neck. ASSESSMENT I reviewed the imaging studies, physical exam findings, and clinical course with the patient today. Rosy Dominique is a 19-year-old female presenting for evaluation of nondisplaced avulsion fracture of the medial aspect of the left great toe proximal, fracture to the left second metatarsal neck, minimal swelling noted, no ecchymosis noted pain on palpation to the mentioned area Bilateral dorsalis pedis pulses are equal and palpable. Sensory exam is within normal limits in all dermatomal distributions. Strength is equal 5 out of 5 at the ankle. Review of systems negative for fever, weight loss, malaise, fatigue, significant headache, vision changes, hearing loss, neck swelling, cough, chest pain, shortness of breath, dyspnea on exertion, abdominal pain, nausea, vomiting, diarrhea, urinary dysfunction PLAN: 1. Acute left ankle pain (M25.572) Ankle X-ray shows no fractures or misalignment. - No specific treatment required for the ankle at this time. 2. Closed fracture of head of metatarsal bone of left foot, initial encounter (S92.302A) Nondisplaced fracture of proximal phalanx of left great toe, initial encounter for closed fracture (S92.415A) X-rays reveal two fractures in the left foot: one in the head of the metatarsal bone and another in the proximal phalanx of the left great toe. Healing time is approximately 6-8 weeks. - Continue using crutches for one more week, then begin weight-bearing as tolerated. - Discontinue ibuprofen; it may impede healing. - Take Tylenol, two tablets every 8 hours for pain management. - Initiate Vitamin D supplementation to aid in healing. - Start aspirin while non-weight bearing due to increased risk of DVT from control use. - Monitor for signs of DVT, including swelling, tenderness, or pain in the calf; seek urgent care if symptoms occur. - Apply ice to reduce pain and swelling. - Schedule physical therapy to begin in two weeks to prevent ligament and tendon weakness. - Follow-up in 4 weeks; bring a shoe for potential transition based on X-ray findings and clinical assessment. 3. Pain in left foot (M79.672) Pain secondary to fractures in the metatarsal (more content not included)... [facility]06-20-2025 History of Present illness Narrative* Isaura Lopez, OVERHEAD CRANE INSPECTOR.DRAPERY CUTTER MACHINE - 04/29/2025 10:56 AM EDT Foot and Ankle Clinic - New Patient Visit Consultation requested by Maria Guadalupe Cunningham [address] [place] [id number] for an opinion regarding Ms. Rosy Dominique, and my final recommendations will be communicated back to the requesting physician by way of shared medical record or letter via [place] mail. CHIEF COMPLAINT: Left foot fracture HISTORY OF PRESENT ILLNESS: Rosy Dominique is a 19-year-old female presenting for evaluation of foot fractures sustained during a fall. Rosy reports sustaining two foot fractures on 08/21/2023, following a fall while attempting a flip. She landed on her toes, resulting in immediate pain. She presented to the hospital, where she wasevaluated and provided with a boot and crutches. Rosy has been using the crutches consistently since the injury. She reports persistent pain in the foot, for which she has been taking Tylenol and ibuprofen alternately every 6 hours. She also reports pain radiating to the ankle, for which an x-ray was performed today. She denies smoking or vaping. Rosy is currently on control and is not . She has a history of a previous foot fracture, for which she was out of a boot for 3 weeks before sustaining the current injury. Location of Pain: Left foot The pain is present yes The pain is a 1/10 at its best, and 4/10 at its worst. They denies nocturnal pain. Treatments Tried: Ice: No NSAIDs: Yes Brace: Tall pneumatic boot and aluminum crutches Injections: No Physical Therapy: No Surgeries: No Occupation: N/A Activities: na Smoking: No Personal or Family Hx of DVT/PE: no Diabetic: no Last Hgba1c: Hemoglobin A1C (%) Date Value 04/08/2024 4.9 PHYSICAL EXAMINATION: General: no acute distress HENT: head normocephalic, mouth mucous membranes are moist. Eyes: extraocular movements intact, pupils are equal, round, and reactive to light. Cardiovascular: normal pulses Pulmonary: normal work of breathing on room air Skin: capillary refill takes less than 2 seconds Neurological: AOx4, follows commands Musculoskeletal: Left lower extremity Inspection: No obvious deformity noted Palpation: Left foot ROM: WNL Neuro: sensation intact in the superficial peroneal, deep peroneal, tibial, sural, and saphenous nerve distributions Vascular: DP pulse present, 2+ Compartments: compartments of leg are soft and compressible IMAGING: Small nondisplaced avulsion fracture at the medial aspect of the left great toe proximal central base. 2. Minimally impacted fracture of the left second metatarsal neck. ASSESSMENT I reviewed the imaging studies, physical exam findings, and clinical course with the patient today. Rosy Dominique is a 19-year-old female presenting for evaluation of nondisplaced avulsion fractureof the medial aspect of the left great toe proximal, fracture to the left second metatarsal neck, minimal swelling noted, no ecchymosis noted pain on palpation to the mentioned area Bilateral dorsalis pedis pulses are equal and palpable. Sensory exam is within normal limits in alldermatomal distributions. Strength is equal 5 out of 5 at the ankle. Review of systems negative for fever, weight loss, malaise, fatigue, significant headache, vision changes, hearing loss, neck swelling, cough, chest pain, shortness of breath, dyspnea on exertion, abdominal pain, nausea, vomiting, diarrhea, urinary dysfunction PLAN: 1. Acute left ankle pain (M25.572) Ankle X-ray shows no fractures or misalignment. - No specific treatment required for the ankle at this time. 2. Closed fracture of head of metatarsal bone of left foot, initial encounter (S92.302A) Nondisplaced fracture of proximal phalanx of left great toe, initial encounter for closed fracture (S92.415A) X-rays reveal two fractures in the left foot: one in the head of the metatarsal bone and another inthe proximal phalanx of the left great toe. Healing time is approximately 6-8 weeks. - Continue using crutches for one more week, then begin weight-bearing as tolerated. - Discontinue ibuprofen; it may impede healing. - Take Tylenol, two tablets every 8 hours for pain management. - Initiate Vitamin D supplementation to aid in healing. - Start aspirin while non-weight bearing due to increased risk of DVT from control use. - Monitor for signs of DVT, including swelling, tenderness, or pain in the calf; seek urgent care if symptoms occur. - Apply ice to reduce pain and swelling. - Schedule physical therapy to begin in two weeks to prevent ligament and tendon weakness. - Follow-up in 4 weeks; bring a shoe for potential transition based on X-ray findings and clinical assessment. 3. Pain in left foot (M79.672) Pain secondary to fractures in the metatarsal and proximal phalanx. - Pain management with Tylenol and ice application. -Go directly to the ER for any severe pain in the calf muscle, fever over 100.5F, red streaks running up your leg, chest pain or shortness of breath. Surgical plan: No WB: Nonweightbearing for a week followed by weightbearing as tolerated Brace/DME: Tall pneumatic boot and she is PT: Consulted DVT PPX: Aspirin 81 mg 1 nonweightbearing We discussed, in detail, that with recent injury and the need for immobilization, the patient is atincreased risk of developing a deep venous thrombosis (DVT). We discussed strategies to attempt to decrease this risk, and discussed early identification of symptoms (calf swelling, calf pain, warmthand tenderness to the calf). Patient is understanding of this risk, has been instructed and has agreed to contact our office immediately or go to the emergency department if these symptoms develop. Progression: Ongoing Follow up: 4 weeks. Will continue to monitor patient for Acute left ankle pain (primary encounter diagnosis) Closed fracture of head of metatarsal bone of left foot, initial encounter Nondisplaced fracture of proximal phalanx of left great toe, initial encounter for closed fracture Pain in left foot, patient to schedule visit as per follow up discussed. Imaging needed: Weightbearing x-ray At the conclusion of the office visit, the patient was asked if they had any questions regarding the diagnosis or care. Also, ample time was provided for the patient to ask any questions regarding the diagnosis therefore plan of care. All the patient's questions if asked were answered to their satisfaction I spent a total of 30 minutes on the date of the service which included preparing to see the patient, [id number] patient care, completing clinical documentation, obtaining and/or reviewing separately obtained history, performing a medically appropriate examination, counseling and educating the pat ient/family/caregiver, ordering medications, tests, or procedures, communicating with other HCPs (not separately reported), independently interpreting results (not separately reported), and communicating results to the patient/family/caregiver. Thank you for the opportunity to participate in this patient's care. Isaura Lopez CNP Orthopaedic Medical Decision Making (MDM) Complexity of problems: Acute fracture, Complexity of data: Independent interpretation of imaging, 2 unique test results reviewed, Risk: Minimal risk of morbidity from testing/treatment, Level of MDM: Moderate (4) This note was partially generated using Netadmin voice recognition system, any errors noted are unintentional and are due to this technology. The patient consented to the use of ambient Cactus software for draft documentation of the visit consistent with [facility] Notice of Privacy Practices. documented in this encounterUc [facility] Center05-16-2025 Radiology Diagnostic study note [facility] [address] [place] [id number] Foot min 3 Views MR#: [id number] Acct: [id number] Name: ROSY DOMINIQUE Rep #: [id number] : 2005 F 19 From: Siva Francisco MD PCP: Dr. Florentin Toribio DO Status: REG ER Study:Foot min 3 Views Date of Exam: Exam# [id number] Ordering Dr: Gisel Lemos DO PROCEDURE: FOOT MIN 3 VIEWS 03/25/2025 REASON FOR EXAM: PAIN TECHNIQUE: 3 views of the right foot. FINDINGS: No fracture or dislocation. The joint spaces appear within limits. Soft tissues appear within limits. RAD/Foot min 3 Views IMPRESSION: No fracture or dislocation. Reading Location: [facility] CC: Dr. Florentin Toribio DO; Matthias Lemos DO ~ Engineering Job Titles: Signed [facility]05-16-2025 Radiology Diagnostic study note [facility] [address] [place], [place] [id number] Ankle min 3 Views MR#: [id number] Acct: [id number] Name: ROYS DOMINIQUE Rep #: [id number] : 2005 F 19 From: Siva Francisco MD PCP: Dr. Florentin Toribio DO Status: REG ER Study:Ankle min 3 Views Date of Exam: Exam# [id number] Ordering Dr: Gisel Lemos DO PROCEDURE: ANKLE MIN 3 VIEWS 03/25/2025 REASON FOR EXAM: PAIN TECHNIQUE: 3 views of the right ankle COMPARISON: None available FINDINGS: No fracture or dislocation. The joint spaces appear within limits. The soft tissues appear within limits. RAD/Ankle min 3 Views IMPRESSION: No fracture or dislocation. If symptoms persist, may follow-up with repeat imaging in 7-10 days as warranted. Reading Location: [facility] CC: Dr. Florentin Toribio DO; Matthias Lemos DO ~ Engineering Job Titles: Signed [facility]05-15-2025 Hospital Discharge instructions Additional Instructions Your x-ray revealed no fracture or dislocation and your exam does not display any signs of ligamentous damage. Continue with Tylenol and/or Motrin for pain control and ice the area to help reduce pain and swelling. Return to the ER should you have any further concerns. It would typically take 7 to 10 days for your symptoms to improve.[facility] Work Phone: [phone]) 166-722904-04-2025 Radiology Diagnostic study note [facility] [address] [place] [address] Foot min 3 Views MR#: [id number] Acct: [id number] Name: ROSY DOMINIQUE Rep #: [id number] : 2005 F 19 From: Siva Francisco MD PCP: Dr. Florentin Toribio DO Status: REG ER Study:Foot min 3 Views Date of Exam: 02/01 Exam# [id number] Ordering Dr: Gisel Lemos DO EXAM: Foot minimum three views CLINICAL HISTORY: Pain COMPARISON: None available TECHNIQUE: Three views left foot FINDINGS: Acute nondisplaced intra-articular small fracture at the medial side of the 1st proximal phalanx atthe metacarpophalangeal joint without significant displacement. No dislocation. Mild forefoot soft tissue swelling. RAD/Foot min 3 Views IMPRESSION: Acute nondisplaced intra-articular small fracture at the medial side of the 1st proximal phalanx atthe metacarpophalangeal joint without significant displacement. No dislocation. Reading Location: [id number] CC: Dr. Florentin Toribio DO; Matthias Lemos DO ~ Engineering Job Titles: Signed [facility]03-06-2025 History of Present illness Narrative* Dori Johnson PA-C - 01/13/2025 1:00 PM EST MEDICAL BREAST PATIENT NAME: Rosy Dominique REFERRAL: She is self referred for an opinion regarding right breast pain. HISTORY of PRESENT ILLNESS: Rosy Dominique is a 19 year old premenopausal female who presents to the [facility] today for evaluation of breast pain. The patient denies any breast masses, skin changes, or nipple discharge. She has a history of a right breast surgical I&D for an abscess in [address] Conte. Since then, she has chronic pain within the region of her prior scar. She was referred to the breast center by Dr. Conte a couple years ago but she became and did not yet follow up. She currentlydenies any new masses, skin changes, fever/chills. She has regular menstrual cycles with OCP. She co nsumes 2 cups of iced tea 4 x weekly. No results found for: VITD25 She takes no supplements. BMD: No PERSONAL BREAST HISTORY: Breast biopsy: No Breast cysts: No Breast surgery: 2021 right I&D for abscess Breast cancer: No CANCER SURVEILLANCE: Mammograms: No Breast MRI: No Colonoscopy: No RISK FACTORS FOR BREAST CANCER: Age at the onset of menses: 12 years of age. P: 2 Age at the of first child: Not stated. She breast fed. Age at menopause: Not applicable. She has an intact uterus and ovaries Patient's last menstrual period was 12/19/2024. She uses OCP for control. History of Mantle Radiation prior to the age of 29: No BMI: Body mass index is 17.72 kg/m . Current weight 120 lbs Mammographic density: Unknown Personal History of Benign Atypical Breast Biopsy: No Alcohol use: Never PAST MEDICAL HISTORY Diagnosis Date Brugada syndrome Chronic daily headache Complication of anesthesia Diabetes, gestational POTS (postural orthostatic tachycardia syndrome) Seizure (HCC) Thyroid disease Trauma PAST MEDICAL HISTORY: Patient specifically denies history of: DVT, PE, migraine headaches WITH AURA, migraine headaches without aura, abnormal uterine bleeding, abnormal uterine biopsies, osteopenia, and osteoporosis. SOCIAL HISTORY: Social History Tobacco Use Smoking status: Never Passive exposure: Yes Smokeless tobacco: Never Tobacco comments: vape Vaping Use Vaping status: Former Substances: Nicotine Substance Use Topics Alcohol use: No Drug use: Never Caffeine intake: 2 cups of iced tea 4 x weekly Exercise: Never Family History Adopted: Yes Problem Relation Age of Onset None Mother Ovarian cancer Mother 20 Cervical Cancer Mother 20 Autism Mother None Father Autism Sister Autism Brother Blood Clots Maternal Aunt Breast Cancer Maternal Grandmother 48 Skin Cancer Maternal Grandmother Thyroid Maternal Grandmother Skin Cancer Maternal Grandfather Heart Attack Maternal Grandfather Diabetes Paternal Grandfather FAMILY HISTORY: Family history of breast cancer: MGM (age 48) Family history of ovarian cancer: Her mother had cervical and (? ovarian cancer) in her 20's duringpregnancy. She is currently living. This history is unclear/unconfirmed and patient states she was adopted at age 15 but still has touch with her mother and MGM. Number of sisters: 7 Number of maternal aunts: 2 Number of paternal aunts: unknown Ashkenazi Ancestry: no Other Cancer: MGM - skin cancer (age not stated). MGF - skin cancer (age not stated). There is no family history of prostate, colon, uterine, pancreatic, gastric, brain, renal cell or thyroid cancer. There is no family history of melanoma, sarcoma or leukemia. Osteoporosis: None Stroke: MGF (age 50's-60's) Blood Clot: Maternal aunt Heart attack: MGF (age 50's-60's) Thyroid Nodule or Goiter: MGM Autism: Mother and sister REVIEW OF SYSTEMS: The patient specifically denies unintentional weight loss, insomnia, hot flashes, night sweats, abnormal swelling in the arms or legs, chest pain, shortness of breath, persistent cough, heartburn, urinary incontinence, vaginal dryness, decreased libido, or unusual bony pains. PHYSICAL EXAM: Ht 175.3 cm (5' 9) Wt 54.4 kg (120 lb) LMP 12/19/2024 BMI 17.72 kg/m General: well-nourished, healthy, female, alert and oriented x 3, calm Skin: warm, dry, skin color, texture, turgor normal Head/Eyes: normocephalic, atraumatic, and anicteric Breasts and Regional Lymph Nodes: The patient was examined in the upright and supine positions. There is no concerning supraclavicular, infraclavicular or axillary lymphadenopathy. The breasts are asymmetrical (L > R which is chronic) in appearance without visible skin or nipple changes. There are no dominant breast masses or nipple discharge bilaterally. The left breast was non-tender. There was mild to moderate fibrocystic change throughout. There is mild tenderness in the right breast at 12 o'clock 1cmfn in the area of her previous surgical scar (I&D 2021). There are no underlying masses or palpable abnormalities (this correlates to her area of chronic pain). There is no evidence of superficial infection or abscess today. IMAGING: Targeted right US was ordered and will be scheduled (first available). Assessment IMPRESSION/PLAN: Rosy Dominique is a 19 year old year old female with bilateral fibrocystic change, history of right breast abscess s/p I&D, and chronic right breast pain. There is no evidence of malignancy based on her clinical exam findings today. She will schedule theright breast ultrasound to further evaluate the clinical area noted above. We discussed common causes for breast pain today and she was provided an informational handout. Herpain is focal in the area of her previous surgical scar and is chronic. She is advised to wear a well-fitting supportive bra and trial evening primrose oil 1,000mg BID x 4-6 months. She may also use topical Voltaren gel as needed. Genetics referral made: No: Reason: She is advised to discuss genetic testing with her MGM who was diagnosed with breast cancer at age 48 and is currently living in her 50's. Chemoprevention discussion: No The patient is advised to exercise regularly, achieve/maintain ideal body weight, and to limit alcohol consumption to less than 7 drinks weekly for breast cancer risk reduction and overall health. She will return 01/24/2025 for the right breast US as scheduled. If negative, return to the breast center in 6 months for a follow up clinical exam. She will call me in the interim should she have anyquestions or concerns. My final recommendations will be communicated back to the requesting physician by way of shared medical record or letter via US mail. I spent a total of 30 minutes minutes on the date of the service which included preparing to see the patient, [id number] patient care, completing clinical documentation, performing a medically appropriate examination, counseling and educating the patient/family/caregiver, and ordering medications, tests, or procedures. Dori Johnson PA-C Medical Breast Specialist CC: Connor Martini [id number] [facility] [place] [address] documented in this encounterU[facility]03-[facility]-2025 NoteHNO ID: [id number] Author: DORI JOHNSON PA-C Service: ? Author Type: Physician Generalist Type: Progress Notes Filed: 01/13/2025 14:26 Note Text: MEDICAL BREAST PATIENT NAME: Rosy Dominique REFERRAL: She is self referred for an opinion regarding right breast pain. HISTORY of PRESENT ILLNESS: Rosy Dominique is a 19 year old premenopausal female who [facility] for evaluation of breast pain. The patient denies any breast masses, skin changes, or nipple discharge. She has a history of a right breast surgical IANDD for an abscess in [address] Conte. Since then, she has chronic pain within the region of her prior scar. She was referred to the breast center by Dr. Conte a couple years ago but she became and did not yet follow up. She currently denies any new masses, skin changes, fever/chills. She has regular menstrual cycles with OCP. She consumes 2 cups of iced tea 4 x weekly. No results found for: VITD25 She takes no supplements. BMD: No PERSONAL BREAST HISTORY: Breast biopsy: No Breast cysts: No Breast surgery: 2021 right IANDD for abscess Breast cancer: No CANCER SURVEILLANCE: Mammograms: No Breast MRI: No Colonoscopy: No RISK FACTORS FOR BREAST CANCER: Age at the onset of menses: 12 years of age. P: 2 Age at the of first child: Not stated. She breast fed. Age at menopause: Not applicable. She has an intact uterus and ovaries Patient's last menstrual period was 12/19/2024. She uses OCP for control. History of Mantle Radiation prior to the age of 29: No BMI: Body mass index is 17.72 kg/m?. Current weight 120 lbs Mammographic density: Unknown Personal History of Benign Atypical Breast Biopsy: No Alcohol use: Never PAST MEDICAL HISTORY Diagnosis Date Brugada syndrome Chronic daily headache Complication of anesthesia Diabetes, gestational POTS (postural orthostatic tachycardia syndrome) Seizure (HCC) Thyroid disease Trauma PAST MEDICAL HISTORY: Patient specifically denies history of: DVT, PE, migraine headaches WITH AURA, migraine headaches without aura, abnormal uterine bleeding, abnormal uterine biopsies, osteopenia, and osteoporosis. SOCIAL HISTORY: Social History Tobacco Use Smoking status: Never Passive exposure: Yes Smokeless tobacco: Never Tobacco comments: vape Vaping Use Vaping status: Former Substances: Nicotine Substance Use Topics Alcohol use: No Drug use: Never Caffeine intake: 2 cups of iced tea 4 x weekly Exercise: Never Family History Adopted: Yes Problem Relation Age of Onset None Mother Ovarian cancer Mother 20 Cervical Cancer Mother 20 Autism Mother None Father Autism Sister Autism Brother Blood Clots Maternal Aunt Breast Cancer Maternal Grandmother 48 Skin Cancer Maternal Grandmother Thyroid Maternal Grandmother Skin Cancer Maternal Grandfather Heart Attack Maternal Grandfather Diabetes Paternal Grandfather FAMILY HISTORY: Family history of breast cancer: MGM (age 48) Family history of ovarian cancer: Her mother had cervical and (? ovarian cancer) in her 20's during . She is currently living. This history is unclear/unconfirmed and patient states she was adopted at age 15 but still has touch with her mother and MGM. Number of sisters: 7 Number of maternal aunts: 2 Number of paternal aunts: unknown Ashkenazi Ancestry: no Other Cancer: MGM - skin cancer (age not stated). MGF - skin cancer (age not stated). There is no family history of prostate, colon, uterine, pancreatic, gastric, brain, renal cell or thyroid cancer. There is no family history of melanoma, sarcoma or leukemia. Osteoporosis: None Stroke: MGF (age 50's-60's) Blood Clot: Maternal aunt Heart attack: MGF (age 50's-60's) Thyroid Nodule or Goiter: MGM Autism: Mother and sister REVIEW OF SYSTEMS: The patient specifically denies unintentional weight loss, insomnia, hot flashes, night sweats, abnormal swelling in the arms or legs, chest pain, shortness of breath, persistent cough, heartburn, urinary incontinence, vaginal dryness, decreased libido, or unusual bony pains. PHYSICAL EXAM: Ht 175.3 cm (5' 9) Wt 54.4 kg (120 lb) LMP 12/19/2024 BMI 17.72 kg/m? General: well-nourished, healthy, female, alert and oriented x 3, calm Skin: warm, dry, skin color, texture, turgor normal Head/Eyes: normocephalic, atraumatic, and anicteric Breasts and Regional Lymph Nodes: The patient was examined in the upright and supine positions. There is no concerning supraclavicular, infraclavicular or axillary lymphadenopathy. The breasts are asymmetrical (L > R which is chronic) in appearance without visible skin or nipple changes. There are no dominant breast masses or nipple discharge bilaterally. The left breast was non-tender. There was mild to moderate fibrocystic change throughout. T (more content not included)...[facility]03-05-2025 Telephone encounter Note* Telephone Encounter - Maris Redd MA - 01/12/2025 2:54 PM EST Attempted to reach out to patient regarding her appointment on 01/13/25. She does not have imaging scheduled for tomorrow. I was hoping to get more information about her breast concerns. Left a message for her to call the office back. Maris Redd MA [facility]03-05-[facility] Miscellaneous Notes* Telephone Encounter - Maris Redd MA - 01/12/2025 2:54 PM EST Attempted to reach out to patient regarding her appointment on 01/13/25. She does not have imaging scheduled for tomorrow. I was hoping to get more information about her breast concerns. Left a message for her to call the office back. Maris Redd MA documented in this encounterUc [facility] Center01-28-2025 Telephone encounter Note * Telephone Encounter - Fe Payan RN - 12/07/2024 11:26 AM EST Forms received from [facility] [employer], information completed and faxed to [phone] successful transmission [facility]01-28-[facility] Miscellaneous Notes* Telephone Encounter - Fe Payan RN - 12/07/2024 11:26 AM EST Forms received from [facility] [employer], information completed and faxed to [phone] successful transmission documented in this encounterUc Medical Center01-09-2025 NoteHNO ID: [id number] Author: ARPIT ARTEAGA MA Service: ? Author Type: Equipment Installation Professional Type: Progress Notes Filed: 11/18/2024 09:04 Note Text: Pt states she has no concerns. Arpit Arteaga MA November 18, 2024 8:41 [facility] of Present illness Narrative* Arpit Arteaga MA - 11/18/2024 8:40 AM EST Pt states she has no concerns. Arpit Arteaga MA November 18, 2024 8:41 AM * Monty Rivera MD - 11/18/2024 8:37 AM EST VISIT Rosy Dominique is a 19 year old year old here for visit. She had an OB ED visit 11/09/2024 for dizziness related to her POTS, which spontaneously resolved. still in NICU at [facility]. Delivery Summary: Peggy Dominique [[id number]] Delivery Information: Delivery Date: 10/05/24 Delivery type: , Low Transverse Delivering Clinician: Mildred Petit MD : Gender: Female Weight (grams): 1940 g One Minute : 8 Five Minute : 8 ROS/ Recovery: Feeding: Pumping and problems: Mastitis, treated with Bactrim - RESOLVED; no current symptoms Menses since delivery: none; started continuous OCP Menstrual pattern prior to : Regular periods [place] since delivery: Resumed and Not resumed Depression: denies symptoms of depression. OB Depression and Anxiety Screening- This Encounter (since 11/17/2024) None Emotional support: Yes Bowel symptoms: Negative for abdominal discomfort, blood in stools or black stools and change in bowel habits Abdomen: She reports no incisional redness, tenderness, erythema Bladder symptoms: No dysuria, gross hematuria, urinary frequency, urinary urgency, or incontinence Other issues: None Last Pap: N/a; 19yo, due in July PAST MEDICAL HISTORY Diagnosis Date Brugada syndrome Chronic daily headache Complication of anesthesia Diabetes, gestational POTS (postural orthostatic tachycardia syndrome) Seizure (HCC) Thyroid disease Trauma PAST SURGICAL HISTORY Procedure Laterality Date SNGL 10/05/2024 DELIVERY ONLY 06/14/2022 L'SCOPE DX W/WO BRUSHINGS/WASHINGS 03/17/2024 [place] to r/o ectopic MASTOTOMY W/EXPLORATION/DRAINAGE ABSCESS DEEP Right 08/18/2022 FAMILY HISTORY Problem Relation Age of Onset None Mother None Father Diabetes Paternal Grandfather Social History Tobacco Use Smoking status: Never Passive exposure: Yes Smokeless tobacco: Never Tobacco comments: vape Vaping Use Vaping status: Former Substances: Nicotine Substance Use Topics Alcohol use: No Drug use: Never PHYSICAL EXAMINATION: SENSITIVE EXAM: Sensitive exam not performed. BP 91/66 Pulse 82 Wt 131 lb (59.4kg) LMP 02/14/2024 GENERAL: pleasant, female in no apparent distress HEENT: Normocephalic, atraumatic, mucus membranes moist, and no lesions NECK: Supple, full range of motion, no adenopathy, and thyroid normal DERMATOLOGY: Normal, without lesions, non-icteric, and non-hirsute BREAST: deferred and patient using portable breast pumps CHEST: Clear to auscultation, Normal inspiratory effort, and Regular rate and rhythm ABDOMEN: soft, non-tender, and no masses. INCISION: No incisional redness, swelling, or drainage PELVIC: deferred per patient preference BIMANUAL: deferred NEURO: alert and oriented x3,exam grossly non-focal EXTREMITIES: normal ASSESSMENT AND PLAN: 19 year old status post CS with course complicated by mastitis which is now resolved. Assessment & Plan care and examination - remains in NICU, meeting milestones - Mastitis resolved after Bactrim, counseled regarding recurrence of symptoms and when to seek care - Pumping and - continuous progesterone only OCP, tolerating well, has refills - RTC in 9-12 months for WWE and pap smear Monty Rivera MD Attending Note I discussed with resident. The patient was not examined by the attending. I reviewed the resident'snote. I agree with the resident's assessment and plan unless otherwise noted. Signature: Jasper Spivey MD Date: 11/18/2024. Time: 9:33 AM documented in this encounterUc Medical Center01-09-2025 NoteHNO ID: [id number] Author: JASPER SPIVEY MD Service: ? Author Type: Resident Type: Progress Notes Filed: 11/18/2024 09:33 Note Text: VISIT Rosy Dominique is a 19 year old year old here for visit. She had an OB ED visit 11/09/2024 for dizziness related to her POTS, which spontaneously resolved. Infant still in NICU at [facility]. Delivery Summary: Peggy Dominique [[id number]] Delivery Information: Delivery Date: 10/05/24 Delivery type: , Low Transverse Delivering Clinician: Mildred Petit MD [place]: Gender: Female Weight (grams): 1940 g One Minute : 8 Five Minute : 8 ROS/ Recovery: Feeding: Pumping and problems: Mastitis, treated with Bactrim - RESOLVED; no current symptoms Menses since delivery: none; started continuous OCP Menstrual pattern prior to : Regular periods [place] since delivery: Resumed and Not resumed Depression: denies symptoms of depression. OB Depression and Anxiety Screening- This Encounter (since 11/17/2024) None Emotional support: Yes Bowel symptoms: Negative for abdominal discomfort, blood in stools or black stools and change in bowel habits Abdomen: She reports no incisional redness, tenderness, erythema Bladder symptoms: No dysuria, gross hematuria, urinary frequency, urinary urgency, or incontinence Other issues: None Last Pap: N/a; 19yo, due in July PAST MEDICAL HISTORY Diagnosis Date Brugada syndrome Chronic daily headache Complication of anesthesia Diabetes, gestational POTS (postural orthostatic tachycardia syndrome) Seizure (HCC) Thyroid disease Trauma PAST SURGICAL HISTORY Procedure Laterality Date SNGL 10/05/2024 DELIVERY ONLY 06/14/2022 L'SCOPE DX W/WO BRUSHINGS/WASHINGS 03/17/2024 [place] to r/o ectopic MASTOTOMY W/EXPLORATION/DRAINAGE ABSCESS DEEP Right 08/18/2022 FAMILY HISTORY Problem Relation Age of Onset None Mother None Father Diabetes Paternal Grandfather Social History Tobacco Use Smoking status: Never Passive exposure: Yes Smokeless tobacco: Never Tobacco comments: vape Vaping Use Vaping status: Former Substances: Nicotine Substance Use Topics Alcohol use: No Drug use: Never PHYSICAL EXAMINATION: SENSITIVE EXAM: Sensitive exam not performed. BP 91/66 Pulse 82 Wt 131 lb (59.4kg) LMP 02/14/2024 GENERAL: pleasant, female in no apparent distress HEENT: Normocephalic, atraumatic, mucus membranes moist, and no lesions NECK: Supple, full range of motion, no adenopathy, and thyroid normal DERMATOLOGY: Normal, without lesions, non-icteric, and non-hirsute BREAST: deferred and patient using portable breast pumps CHEST: Clear to auscultation, Normal inspiratory effort, and Regular rate and rhythm ABDOMEN: soft, non-tender, and no masses. INCISION: No incisional redness, swelling, or drainage PELVIC: deferred per patient preference BIMANUAL: deferred NEURO: alert and oriented x3,exam grossly non-focal EXTREMITIES: normal ASSESSMENT AND PLAN: 19 year old status post CS with course complicated by mastitis which is now resolved. Assessment AND Plan care and examination - remains in NICU, meeting milestones - Mastitis resolved after Bactrim, counseled regarding recurrence of symptoms and when to seek care - Pumping and - continuous progesterone only OCP, tolerating well, has refills - RTC in 9-12 months for WWE and pap smear Monty Rivera MD Attending Note I discussed with resident. The patient was not examined by the attending. I reviewed the resident's note. I agree with the resident's assessment and plan unless otherwise noted. Signature: Jasper Spivey MD Date: 11/18/2024. Time: 9:33 [facility]01-01-2025 NoteHNO ID: [id number] Author: MILDRED PETIT MD Service: Obstetrics Author Type: Resident Type: Progress Notes Filed: 11/10/2024 04:24 Note Text: Attestation signed by Mildred Petit MD at 11/10/2024 4:24 AM Attending Note I evaluated the patient and personally participated in the can components. I agree with the resident's findings and plan as documented and have discussed the case and management of the patient's care with the resident. Plan of care discussed with: Provider, RN, Patient. Signature: Mildred Petit MD Date: November 10, 2024 Time: 4:24 AM OBSTETRICS OB ED PROGRESS NOTE SERVICE DATE: November 10, 2024 SERVICE TIME: 12:22 AM Subjective Patient's stated reason for arrival: dizzy CHIEF COMPLAINT: Dizzy episode HISTORY OF THE PRESENT ILLNESS: The patient is a 19 year old female, , who is 5w1d s/p repeat LTCS at 33w3d in the setting of PPROM and non-reassuring testing. The patient's daughter is in the NICU and she was over there visiting her baby. The patient has a known history of POTS and started feeling very dizzy while in the NICU. She was then brought over to the [facility] by the NICU staff and given some snacks. By the time she was roomed in the [facility], she was feeling much better and did not have any complaints. She denies any dizziness, lightheadedness, nausea, vomiting, abdominal pain, fevers, or chills. She is sitting up in bed and states that she feels good. The patient is meeting all of her milestones appropriately. PAST MEDICAL HISTORY Diagnosis Date Brugada syndrome Chronic daily headache Complication of anesthesia Diabetes, gestational POTS (postural orthostatic tachycardia syndrome) Seizure (HCC) Thyroid disease Trauma PAST SURGICAL HISTORY Procedure Laterality Date DELIVERY ONLY 06/14/2022 L'SCOPE DX W/WO BRUSHINGS/WASHINGS 03/17/2024 [place] to r/o ectopic MASTOTOMY W/EXPLORATION/DRAINAGE ABSCESS DEEP Right 08/18/2022 OB History T0 L2 SAB5 IAB1 Ectopic0 Multiple0 Live Births2 REVIEW OF SYSTEMS: The remainder of the review of systems is negative. Objective LAST VITALS: Pulse: 80 BP: 93/73 Resp: 16 Temp: 36.3 ?C (97.3 ?F) SpO2: 100 % SENSITIVE EXAMINATION CONSENT: The sensitive examination was discussed with the Patient or Patient's Authorized Electronic Tester. As applicable, any other physician, advance practice provider, medical student, or other health professional student that will be observing or involved in the sensitive examination for educational or training purposes was discussed with the Patient or Authorized Electronic Tester. The Patient or Authorized Electronic Tester has agreed to proceed with the sensitive examination. (Sensitive examination includes inspection and/or palpation of the breasts, pelvis, prostate and anorectal regions) PHYSICAL EXAM: General: WD, WN, comfortable Heart: RR, S1, S2 Lungs: clear to auscultation Abdomen: soft, nontender, no masses Extremities: no edema LABS Diagnostic tests reviewed for today's visit: Most recent labs and imaging results. 19 year old 5w1d from a repeat LTCS at 33w3d. Presents to the [facility] after an episode of dizziness. Assessment AND Plan Dizziness - Patient endorses episode of dizziness while in NICU, has since resolved - Vital signs within normal limits - Blood sugar checked and 111 - Patient has known history of POTS, states episode is consistent with her POTS history - Patient states she is feeling very good at this time and requests to leave - Appropriate for discharge home at this time - Strict return precautions given state - Meeting all milestones appropriately for 5 weeks Plan of care discussed with: Provider, RN, Patient. Dr June, Dr Petit. SIGNATURE: Scott Hoang MD PATIENT NAME: Rosy Dominique DATE: November 10, 2024 TIME: 12:22 AM [id number] Miscellaneous Notes* Note - Jose A Watson RN - 11/05/2024 9:00 AM EST This note was copied from a baby's chart. Met with mom at baby's bedside as requested. She has c/o painful hard lump in her right breast. Sheis concerned d/t having history of a MRSA breast abscess. With pts permission, breasts were assessed and the right breast was noted to have a firmness near the 10 o'clock position and down towards the areola. Unable to palpate a single lump. No redness noted. She denies fever, chills, or feeling ill. Left breast noted to be soft. Mom reports she has been using heat and ice on her right breast. She has been feeding baby using the nipple shield for most feedings and continuing to pump after feedings. She reports her milk supply has remained the same and denies any decrease from the right breast. Offered to assess latching and pt declined d/t recent feeding. She feels BF is going well and reports hearing swallowing. Instructed her to call her OB provider as soon as possible to let them know about her breast and symptoms. Reviewed signs ands symptoms of mastitis. Encouraged her to use warm compresses prior to feedings, massage during feeds/pumping, and ice after feedings for 15-20 minutes. Mom encouraged to cont inue pumping after feedings at breast d/t supplementation, nipple shield, and mother/baby separation. Mom verbalizes understanding. Encouraged her to call for latch assistance as needed. The sensitive examination was discussed with the Patient or Patient's Authorized Electronic Tester. Asapplicable, any other physician, advance practice provider, medical student, or other health professional student that will be observing or involved in the sensitive examination for educational or training purposes was discussed with the Patient or Authorized Electronic Tester. The Patient or Authorized Electronic Tester has agreed to proceed with the sensitive examination. (Sensitive examination includes inspection and/or palpation of the breasts, pelvis, prostate and anorectal regions) documented in this encounterUc Medical Center12-27-2024 Obstetrics Note* Note - Jose A Watson RN - 11/05/2024 9:00 AM EST This note was copied from a baby's chart. Met with mom at baby's bedside as requested. She has c/o painful hard lump in her right breast. Sheis concerned d/t having history of a MRSA breast abscess. With pts permission, breasts were assessed and the right breast was noted to have a firmness near the 10 o'clock position and down towards the areola. Unable to palpate a single lump. No redness noted. She denies fever, chills, or feeling ill. Left breast noted to be soft. Mom reports she has been using heat and ice on her right breast. She has been feeding baby using the nipple shield for most feedings and continuing to pump after feedings. She reports her milk supply has remained the same and denies any decrease from the right breast. Offered to assess latching and pt declined d/t recent feeding. She feels BF is going well and reports hearing swallowing. Instructed her to call her OB provider as soon as possible to let them know about her breast and symptoms. Reviewed signs ands symptoms of mastitis. Encouraged her to use warm compresses prior to feedings, massage during feeds/pumping, and ice after feedings for 15-20 minutes. Mom encouraged to cont inue pumping after feedings at breast d/t supplementation, nipple shield, and mother/baby separation. Mom verbalizes understanding. Encouraged her to call for latch assistance as needed. The sensitive examination was discussed with the Patient or Patient's Authorized Electronic Tester. Asapplicable, any other physician, advance practice provider, medical student, or other health professional student that will be observing or involved in the sensitive examination for educational or training purposes was discussed with the Patient or Authorized Electronic Tester. The Patient or Authorized Electronic Tester has agreed to proceed with the sensitive examination. (Sensitive examination includes inspection and/or palpation of the breasts, pelvis, prostate and anorectal regions) [facility]12-26-2024 Miscellaneous Notes* Note - Rosemary, Chloé Telles RN - 11/04/2024 5:45 PM EST This note was copied from a baby's chart. Met with Mom at infants bedside to assist with latching infant. Mom was only pumping and bottle feeding but would like to start putting infant to breast. Mom currently holding in RCC in good form. Infant mouthing nipple but unable to latch on. 20 mm nipple shield applied with instruction on use and cleaning. Infant latched well to the nipple shied, suckled on and off for 10 minutes. Small amount of breast milk noted in the nipple shield when finished. Mom states that pumping continue to go well, expressing 6-12 oz per pump every 2-3 hours. Encouraged Mom to continue putting infant to breast when able and continue pumping 8-10 x per 24 hours. No questions or concerns verbalized at this time. Much praise and encouragement given. [facility] Obstetrics Note* Note - Chloé Riley RN - 11/04/2024 5:45 PM EST This note was copied from a baby's chart. Met with Mom at infants bedside to assist with latching . Mom was only pumping and bottle feeding but would like to start putting to breast. Mom currently holding in RCC in good form. Infant mouthing nipple but unable to latch on. 20 mm nipple shield applied with instruction on use and cleaning. Infant latched well to the nipple shied, suckled on and off for 10 minutes. Small amount of breast milk noted in the nipple shield when finished. Mom states that pumping continue to go well, expressing 6-12 oz per pump every 2-3 hours. Encouraged Mom to continue putting to breast when able and continue pumping 8-10 x per 24 hours. No questions or concerns verbalized at this time. Much praise and encouragement given. [facility]12-12[facility] Note* Addendum Note - Helen Hayward MD - 10/21/2024 6:22 PM ESTAddended by: HELEN HAYWARD on: 10/21/2024 06:22 PM Modules accepted: Orders [facility]12-12-2024 Miscellaneous Notes* Addendum Note - Helen Hayward MD - 10/21/2024 6:22 PM ESTAddended by: HELEN HAYWARD on: 10/21/2024 06:22 PM Modules accepted: Orders documented in this encounter[facility]12-12-2024 NoteHNO ID: [id number] Author: HELEN HAYWARD MD Service: ? Author Type: Resident Type: Progress Notes Filed: 10/21/2024 18:18 Note Text: EARLY VISIT Rosy Dominique is a 19 year old here for 2 week visit. Delivery Summary: Gary Dominique [[id number]] Delivery Information: Delivery Date: 10/05/24 Delivery type: , Low Transverse Delivering Clinician: Mildred Petit MD [place]: Gender: Female Weight (grams): 1940 g One Minute : 8 Five Minute : 8 ROS: General: Denies any fever or chills Hypertension Screening: Headache? No. Visual Changes? No Epigastric Pain? No Increased Swelling? No Taking any BP medications at home? No If applicable, monitoring BP at home? (If Yes, include results) No Mood: normal Depression: denies symptoms of depression. OB Depression and Anxiety Screening- This Encounter (since 10/20/2024) None Feeding: Pumping; baby in NICU problems: Concern for mastitis as she has redness, pain, and swelling of left breast Bladder: No dysuria, gross hematuria, urinary frequency, urinary urgency, or incontinence Bowel symptoms: Negative for abdominal discomfort, blood in stools or black stools and change in bowel habits Abdomen: She reports no incisional redness, tenderness, erythema Bleeding: spotting Bottom and Perineum: No issues Sleep: no sleep concerns, does not feel rested [place] since delivery: Not resumed Emotional support: Yes Exercise: N/A Other issues: None SENSITIVE EXAM: The sensitive examination was discussed with the Patient or Patient's Authorized Electronic Tester. As applicable, any other physician, advance practice provider, medical student, or other health professional student that will be observing or involved in the sensitive examination for educational or training purposes was discussed with the Patient or Authorized Electronic Tester. The Patient or Authorized Electronic Tester has agreed to proceed with the sensitive examination. (Sensitive examination includes inspection and/or palpation of the breasts, pelvis, prostate and anorectal regions). PHYSICAL EXAMINATION: BP 110/79 Pulse 87 Wt 62.1 kg (137 lb) LMP 02/14/2024 BMI 20.23 kg/m? General: pleasant female in no apparent distress, AANDO x 3. Skin warm and intact. Breast: left breast: area of erythema and warmth without induration at approximately 10-11 o'clock position, tender to palpitation; no abnormal discharge, no lymphadenopathy right breast: soft, non-tender, symmetric, no dominant mass, normal nipple-areolar complex, no lymphadenopathy, and no nipple discharge Abdomen: soft, non-tender, no masses, no hepatosplenomegaly, and no lymphadenopathy /Incision: pfannenstiel incision without redness, swelling, or drainage Pelvic: Deferred Bimanual: Deferred ASSESSMENT AND PLAN: 19 year old status post CS with course complicated by mastitis. Assessment AND Plan state - 2 weeks s/p repeat low transverse section at 33 weeks secondary to suspicious testing in the setting of PPROM - coping well, baby in NICU and she visits often - pumping without difficulty but concerned she may have mastitis - abdominal exam unremarkable with incision C/D/I - normotensive today - Contraception plan: desires POPs, rx sent to pharmacy - follow up in 4 weeks for 6 week visit Mastitis associated with - has been pumping; infant in NICU - left breast with area of erythema and warmth without induration - Bactrim BID x 7 days sent to pharmacy (allergy to PCN) - encouraged continued pumping Lynnette Burk DO Attending Note I discussed with resident. The patient was not examined by the attending. I reviewed the resident's note. I agree with the resident's assessment and plan unless otherwise noted. Signature: Helen Hayward MD Date: 10/21/2024. Time: 6:18 [facility]12-12-2024 History of Present illness Narrative* Lynnette Burk DO - 10/21/2024 12:37 PM EST EARLY VISIT Rosy Dominique is a 19 year old here for 2 week visit. Delivery Summary: Gary Dominique [[id number]] Delivery Information: Delivery Date: 10/05/24 Delivery type: , Low Transverse Delivering Clinician: Mildred Petit MD : Gender: Female Weight (grams): 1940 g One Minute : 8 Five Minute : 8 ROS: General: Denies any fever or chills Hypertension Screening: Headache? No. Visual Changes? No Epigastric Pain? No Increased Swelling? No Taking any BP medications at home? No If applicable, monitoring BP at home? (If Yes, include results) No Mood: normal Depression: denies symptoms of depression. OB Depression and Anxiety Screening- This Encounter (since 10/20/2024) None Feeding: Pumping; baby in NICU problems: Concern for mastitis as she has redness, pain, and swelling of left breast Bladder: No dysuria, gross hematuria, urinary frequency, urinary urgency, or incontinence Bowel symptoms: Negative for abdominal discomfort, blood in stools or black stools and change in bowel habits Abdomen: She reports no incisional redness, tenderness, erythema Bleeding: spotting Bottom and Perineum: No issues Sleep: no sleep concerns, does not feel rested [place] since delivery: Not resumed Emotional support: Yes Exercise: N/A Other issues: None SENSITIVE EXAM: The sensitive examination was discussed with the Patient or Patient's Authorized Electronic Tester. As applicable, any other physician, advance practice provider, medical student, or other health professional student that will be observing or involved in the sensitive examination for educational or training purposes was discussed with the Patient or Authorized Electronic Tester. The Patient or Authorized Electronic Tester has agreed to proceed with the sensitive examination. (Sensitive examination includes inspection and/or palpation of the breasts, pelvis, prostate and anorectal regions). PHYSICAL EXAMINATION: BP 110/79 Pulse 87 Wt 62.1 kg (137 lb) LMP 02/14/2024 BMI 20.23 kg/m General: pleasant female in no apparent distress, A&O x 3. Skin warm and intact. Breast: left breast: area of erythema and warmth without induration at approximately 10-11 o'clock position, tender to palpitation; no abnormal discharge, no lymphadenopathy right breast: soft, non-tender, symmetric, no dominant mass, normal nipple- areolar complex, no lymphadenopathy, and no nipple discharge Abdomen: soft, non-tender, no masses, no hepatosplenomegaly, and no lymphadenopathy /Incision: pfannenstiel incision without redness, swelling, or drainage Pelvic: Deferred Bimanual: Deferred ASSESSMENT AND PLAN: 19 year old status post CS with course complicated by mastitis. Assessment & Plan state - 2 weeks s/p repeat low transverse section at 33 weeks secondary to suspicious testing in the setting of PPROM - coping well, baby in NICU and she visits often - pumping without difficulty but concerned she may have mastitis - abdominal exam unremarkable with incision C/D/I - normotensive today - Contraception plan: desires POPs, rx sent to pharmacy - follow up in 4 weeks for 6 week visit Mastitis associated with - has been pumping; in NICU - left breast with area of erythema and warmth without induration - Bactrim BID x 7 days sent to pharmacy (allergy to PCN) - encouraged continued pumping Lynnette Burk DO Attending Note I discussed with resident. The patient was not examined by the attending. I reviewed the resident'snote. I agree with the resident's assessment and plan unless otherwise noted. Signature: Helen Hayward MD Date: 10/21/2024. Time: 6:18 PM * Millicent Lomax MA - 10/21/2024 11:10 AM EST Patient presents for 2 week visit and incision check. Millicent Lomax MA October 21, 2024 11:13 AM documented in this encounterU[facility]12-12-2024 NoteHNO ID: [id number] Author: MILLICENT LOMAX MA Service: ? Author Type: Equipment Installation Professional Type: Progress Notes Filed: 10/21/2024 12:45 Note Text: Patient presents for 2 week visit and incision check. Millicent Lomax MA October 21, 2024 11:13 [facility]12-03-2024 Miscellaneous Notes* Note - Inez Cohen RN - 10/12/2024 5:30 PM EST This note was copied from a baby's chart. LC in NICU, introduced self to patient, offered services or to f/u if pt has questions. Pt states she is still undecided if she wants to put baby to breast d/t traumatic hx of breast abscess with MRSA, provided support for patient's decisions. Notified patient of availability and we can resee her if she has questions about pump, pumping, or wants assistance putting baby to breast. documented in this [facility]12-[facility]-2024 Obstetrics Note* Note - Inez Cohen RN - 10/12/2024 5:30 PM EST This note was copied from a baby's chart. LC in NICU, introduced self to patient, offered services or to f/u if pt has questions. Pt states she is still undecided if she wants to put baby to breast d/t traumatic hx of breast abscess with MRSA, provided support for patient's decisions. Notified patient of availability and we can resee her if she has questions about pump, pumping, or wants assistance putting baby to breast. [facility]24 NoteHNO ID: [id number] Author: DANY SHORE DO Service: Obstetrics Author Type: Resident Type: Plan of Care Filed: 10/08/2024 19:29 Note Text: Prior to discharge, the following Plan of care discussed with: Provider, RN, Patient. Patient presented due to vaginal bleeding, which has since become minimal (normal lochia) postoperative day 3. She was counseled on topical hydrocortisone cream for her small abdominal rash, as she would rather leave than wait for the cream here. Her pain has has resolved from 01/17 to 11/19. Discussed continued monitoring vs discharge, and patient is agreeable for discharge. Discharge Vital signs: .BP 107/79 Pulse 74 Temp 36.9 ?C (98.4 ?F) (Temporal) Resp 18 LMP 02/14/2024 SpO2 98% Follow-up: with primary care provider, currently discharged to [facility], as baby is in NICU. Precautions: Increased vaginal bleeding, sudden increases in pain, or changes in her rash. Discussed with primary Ob Provider/Group: Dr. Marin. [facility] Shore, [facility] NoteHNO ID: [id number] Author: DANY SHORE DO Service: Obstetrics Author Type: Resident Type: Progress Notes Filed: 10/08/2024 19:23 Note Text: Attestation signed by Shea Roman MD at 10/08/2024 10:27 PM Attending Note I evaluated the patient and personally participated in the can components. I agree with the resident's findings and plan as documented and have discussed the case and management of the patient's care with the resident. Signature: Shea Rey MD Date: 10/08/2024 Time: 10:27 PM OBSTETRICS OB ED PROGRESS NOTE SERVICE DATE: October 08, 2024 SERVICE TIME: 5:57 PM Subjective Patient's stated reason for arrival: large blood clots CHIEF COMPLAINT: Vaginal bleeding HISTORY OF THE PRESENT ILLNESS: The patient is a 19 year old female, , who is postoperative day #3 after a section for non-reassuring BPP (12/20). Patient is here complaining of vaginal bleeding. She states she passed a blood clot the size of an egg around 1630. She has not continued to have any bleeding or passed any clots since then. She had normal, decreasing lochia after her , and the blood clot surprised her. She was discharged to [facility], as her baby is currently in the NICU. She is also reporting some back pain, rated a 7/10 at worse when she is moving around, currently a 4/10. The pain in located in her upper back and spreads laterally. She took Tylenol earlier, whichdid not take the pain away. She also has pain under her ribs, which is intermittent. No abdominal pain, other than near her incision site. She also reports having some mild reaction on her abdomen, a rash that just just started earlier today. The rash has not spread anywhere, and she just noticed it while coming to the OB ED. She denies headache, vision changes, chest pain, shortness of breath, dysuria, vaginal discharge, or right upper quadrant pain. PAST MEDICAL HISTORY Diagnosis Date Brugada syndrome Chronic daily headache Complication of anesthesia Diabetes, gestational POTS (postural orthostatic tachycardia syndrome) Seizure (HCC) Thyroid disease Trauma PAST SURGICAL HISTORY Procedure Laterality Date DELIVERY ONLY 06/14/2022 L'SCOPE DX W/WO BRUSHINGS/WASHINGS 03/17/2024 Catarino to r/o ectopic MASTOTOMY W/EXPLORATION/DRAINAGE ABSCESS DEEP Right 08/18/2022 FAMILY HISTORY Problem Relation Age of Onset None Mother None Father Diabetes Paternal Grandfather OB History T0 L2 SAB5 IAB1 Ectopic0 Multiple0 Live Births2 REVIEW OF SYSTEMS: See HPI. Objective LAST VITALS: Pulse: 74 BP: 107/79 Resp: 18 Temp: 36.9 ?C (98.4 ?F) SpO2: 98 % SENSITIVE EXAMINATION CONSENT: The sensitive examination was discussed with the Patient or Patient's Authorized Electronic Tester. As applicable, any other physician, advance practice provider, medical student, or other health professional student that will be observing or involved in the sensitive examination for educational or training purposes was discussed with the Patient or Authorized Electronic Tester. The Patient or Authorized Electronic Tester has agreed to proceed with the sensitive examination. (Sensitive examination includes inspection and/or palpation of the breasts, pelvis, prostate and anorectal regions) PHYSICAL EXAM: General: WD, WN, NAD, comfortable HEENT: moist mucous membranes Heart: RR, S1, S2, no franki, rub, or murmur appreciated Lungs: normal pulmonary exam and clear to auscultation Abdomen: 8cm, urticarial rash visualized on lower abdomen. soft, tender to palpation in upper quadrants, non-tender to palpation in lower quadrants, only near incision site. No rebound or guarding. Silver bandage visualized over incision site, with multiple weeping sites that have been marked. Firm fundus below umbilicus. Back: Tender to palpation in upper thoracic region, approximately T4-9, localized tenderness that extends laterally along ribs line. Pelvis: External genitalia normal without lesions. Perineal body intact. <2cc of blood removed from vaginal vault. Exterior cervical os visually closed, no active bleeding from cervical os. Normal appearing cervix. Extremities: no edema, non-tender to palpation, appropriate capillary refill LABS Diagnostic tests reviewed for today's visit: Most recent labs and imaging results. 19 year old EGA:33w3d. Presenting to OB ED due to vaginal bleeding. Assessment AND Plan Vaginal bleeding - postoperative day 3 after section - vital signs stable - Abdominal exam: unremarkable, no guarding. Firm fundus below umbilicus. - Sterile Speculum Exam: External genitalia normal without lesions. Perineal body intact. <2cc of blood removed f (more content not included)...[facility]11-28-2024 Telephone encounter Note* Telephone Encounter - Meenu Guan MD - 10/07/2024 2:42 PM EST Images from the original note were not included. Rosy Dominique is a 19Y who is s/p a repeat section for BPP 12/20 in the setting of premature rupture of membranes. She met all milestones as appropriate and is discharging from the hospital on POD2. She had a female infant who remains in the NICU and declined control. Please call to schedule a 1 week incision check and a 6 week visit. Thank you, Meenu Guan MD [facility] Miscellaneous Notes* Telephone Encounter - Meenu Guan MD - 10/07/2024 2:42 PM EST Images from the original note were not included. Rosy Dominique is a 19Y who is s/p a repeat section for BPP 12/20 in the setting of premature rupture of membranes. She met all milestones as appropriate and is discharging from the hospital on POD2. She had a female who remains in the NICU and declined control. Please call to schedule a 1 week incision check and a 6 week visit. Thank you, Meenu Guan MD documented in this encounterU[facility] Center11-28-2024 NoteHNO ID: [id number] Author: MEENU GUAN MD Service: Obstetrics Author Type: Resident Type: Progress Notes Filed: 10/07/2024 14:41 Note Text: OBSTETRICS PROGRESS NOTE SERVICE DATE: October 07, 2024 SERVICE TIME: 5:20 AM 19 year old female who is Postoperative Day #2 status post , Low Transverse delivery with female . Assessment AND Plan state Routine post-operative and post- care Meeting milestones: Bonding with baby, ambulating, voiding spontaneously, passing flatus without difficulty, pain adequately controlled on current pain regimen Hgb: Pre-op 10.3 > QBL 424 > post-op 8.6 - Oral iron ordered Post-delivery contraception: Defers Anticipate discharge POD #2-3 Seizure (HCC) - Reports seizure history; PCP had previously put her on Keppra but never saw Neurology; no longer on medications - Last seizure in January, states was related to her heart - Does not require additional workup, discussed with Cardio-OB POTS (postural orthostatic tachycardia syndrome) - No medications Plan of care discussed with: Provider, RN, Patient. Anticipate discharge day: PPD #2-3 Subjective Patient has no current complaints. Tolerating PO intake. Urinating without difficulty. Passing flatus. Pain well controlled with current regimen. Lochia decreasing. Ambulating without difficulty. Denies FERNÁNDEZ, vision changes, SOB, chest pain, dysuria, urinary frequency, nausea, vomiting, increased vaginal bleeding, malodorous vaginal discharge Objective PHYSICAL EXAM: General: lying comfortably in hospital bed Heart: warm and well-perfused. Normal S1-S2, no murmurs, regular rate Lungs: breathing comfortably on room air, CTAB Abdomen: soft, nondistended, nontender Uterus: firm below umbilicus, nontender Incision: transverse incision c/d/I with silver dressing in place Extremities: No edema bilaterally, calves symmetric, no calf tenderness bilaterally Skin: no visible rashes LAST VITALS: Pulse BP Resp O2 Sat Temp Pain 94 104/67 16 97 % 36.6 ?C (97.9 ?F) 0 (sleeping) Avg Min Max Vitals (last 12 hours) Flowsheet Row Name Average Min Max BP: Systolic 101.33 90 110 BP: Diastolic 67.67 63 73 Temp 36.6 ?C (97.9 ?F) 36.6 ?C (97.9 ?F) 36.6 ?C (97.9 ?F) Pulse 89.33 83 94 Resp 16 16 16 SpO2 97.33 % 97 % 98 % HT/WT/BMI: Height Weight BMI 175.3 cm (5' 9) 66.2 kg (146 lb) 21.56 LABS ABO/RH: 10/03/2024: AB; Positive RUBELLA: 04/08/2024: Positive HANDH: Hematocrit (%) Date Value 10/06/2024 27.3 10/03/2024 32.0 Hemoglobin (g/dL) Date Value 10/06/2024 8.6 10/03/2024 10.3 Diagnostic tests reviewed for today's visit: Most recent labs SIGNATURE: Matteo Cotter DO PATIENT NAME: Rosy Dominique DATE: October 07, 2024 TIME: 5:20 AM Senior Attestation: Rosy Dominique is a 19Y POD2 from [facility] for BPP 12/20. She was seen at bedside with Dr. Garduno. She is doing well and without complaints this AM. Pain is well controlled. Bleeding is appropriate. BP overnight reviewed and normal. Desires discharge to be with her family. PPBC: declines Infant: female, in NICU Incision: C/D/I with shadowing that has not expanded Plan: discharge home. Plan for 1 week incision check and 6 week visit. Meenu Guan MD OBGYN PGY-3 Pager #[phone] October 07, 2024 2:40 [facility]11-27-2024 NoteHNO ID: [id number] Author: FLORA ALEJO LISW Service: Care Management Author Type: Automatic Thread Winder Type: Care Mgt Initial Assessment Filed: 10/06/2024 10:26 Note Text: SOCIAL WORK INITIAL ASSESSMENT SERVICE DATE: 10/06/2024 SERVICE TIME: 9:59 AM : 10/05/24 Delivery Mode: Weight: 4 lbs 4.4 oz Gestational Age: 33 weeks 4 days Digester Capper: Rio WOOTEN MOTHER Name: Rosy Dominique Age: 19 years old Marital Status: Single MOTHER'S MEDICAL HISTORY Care: Yes - [place] [facility] Control Discussed: No MENTAL HEALTH/SUBSTANCE ABUSE HISTORY Anxiety and Depression when I was a kid LIVING SITUATION Home: lives with ARCADIO, Rogelio Willis, and ARCADIO's mother and siblings. 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 Baby is in NICU. Patient reports she is living with ARCADIO, ARCADIO's mother, and ARCADIO's little brother and sister. Patient states her parents visited yesterday, but ARCADIO's mother has not visited yet because patient has concerns about ARCADIO's mother recently flying on an airplane and roseann germs she could pass to the baby. Patient states she has a pack and play for the baby. She is planning to obtain a car seat before baby is discharged. Patient expressed interest in Help Me Grow services. Referral will be submitted via online portal. Mother expressed interest in WIC - mother has not established WICH services because she was not expecting the baby to come so early. Patient denied any history of drug use. Patient endorsed history of anxiety and depression when I was a kid. Patient is not receiving mental health treatment now. Patient denies mental health symptoms. Patient denied DV concerns. Patient reports she does not have insurance established for the baby. MAEVE contacted [facility] via [employer]Plus secure chat requesting assistance with Medicaid application for baby. Of note, MAEVE received phone call from [facility] worker Maryjane today [phone]. Maryjane indicated patient has a case open with the agency concerning her younger child. Maryjane indicated Children's Services staff will be coming to the hospital later today to meet with the family. Social Work to remain available as needed. This worker's name and phone number given and resources given as needed. SIGNATURE: MAEVE Cruz PATIENT NAME: Rosy Dominique DATE: October 06, 2024 TIME: 8:29 AM PAGER/CONTACT #: [id number] NoteHNO ID: [id number] Author: EJ WARE MD Service: Obstetrics Author Type: Resident Type: Progress Notes Filed: 10/13/2024 10:03 Note Text: Attestation signed by Ej Ware MD at 10/13/2024 10:03 AM Attending Note I evaluated the patient and personally participated in the can components. I agree with the resident's findings and plan as documented and have discussed the case and management of the patient's care with the resident. Signature: Ej Ware MD Date: 10/13/2024 Time: 10:03 AM OBSTETRICS PROGRESS NOTE SERVICE DATE: October 06, 2024 SERVICE TIME: 6:18 AM 19 year old female who is Postoperative Day #1 status post , Low Transverse delivery with female . Assessment AND Plan state Routine post-operative and post- care Meeting milestones: Bonding with baby, ambulating, s/p Decker and has not yet voided, passing flatus without difficulty, pain adequately controlled on current pain regimen Hgb: Pre-op 10.3 > QBL 424 > post-op 8.6 - Oral iron ordered Post-delivery contraception: Defers Anticipate discharge POD #2-3 Seizure (HCC) - Reports seizure histoyr; PCP had previously put her on Keppra but never saw Neurology; no longer on medications - Last seizure in January, states was related to her heart - Does not require additional workup, discussed with Cardio-OB POTS (postural orthostatic tachycardia syndrome) - No medications Hx of antibiotic allergy - Will administer Ancef and Ceftin instead of penicillin as has allergy to amoxicillin (hives, throat swelling), but has tolerated cephalosporins in the past - Will plan for gentamicin and clindamycin for section in substitution for vancomycin given allergy and history of MRSA History of MRSA infection - Following delivery of first child in 2021 - In breast abscess - Had allergic reaction to vancomycin during treatment Subjective Patient seen and examined at bedside with partner present. Reports feeling much better now. No longer having any chest pain. States she feels it was because she was having abdominal pain and this gave her anxiety. Otherwise doing well and denies additional concerns. Tolerating PO intake. Has not yet urinated. Passing flatus. Pain well controlled with current regimen. Lochia decreasing. Ambulating without difficulty. Objective PHYSICAL EXAM: Heart: Regular rate, warm and well perfused Lungs: Normal respiratory effort Abdomen: Soft, appropriately tender, fundus firm below level of umbilicus, non-distended Incision: Transverse incision clean, dry, intact with silver dressing Extremities: No calf tenderness or edema LAST VITALS: Pulse BP Resp O2 Sat Temp Pain 71 93/51 16 97 % 36.8 ?C (98.2 ?F) 3 Avg Min Max Vitals (last 12 hours) Flowsheet Row Name Average Min Max BP: Systolic 94.33 92 98 BP: Diastolic 51.33 49 54 Temp 36.8 ?C (98.23 ?F) 36.6 ?C (97.9 ?F) 37 ?C (98.6 ?F) Pulse 74 69 82 Resp 17.33 16 18 SpO2 96.67 % 96 % 97 % HT/WT/BMI: Height Weight BMI 175.3 cm (5' 9) 66.2 kg (146 lb) 21.56 LABS ABO/RH: 10/03/2024: AB; Positive RUBELLA: 04/08/2024: Positive HANDH: Hematocrit (%) Date Value 10/06/2024 27.3 10/03/2024 32.0 Hemoglobin (g/dL) Date Value 10/06/2024 8.6 10/03/2024 10.3 Diagnostic tests reviewed for today's visit: Most recent labs and imaging results. SIGNATURE: Derick Lebron MD PATIENT NAME: Rosy Dominique DATE: October 06, 2024 TIME: 6:18 AM Senior Note I evaluated the patient with Dr. Ware. I agree with the PGY 2 findings and plan with the following revisions and/or additions: Rosy Dominique is a 19 year old who is POD#1 s/p RLTCS of a female infant -Patient seen in NICU visiting baby -Meeting immediate and postoperative milestones -BPs reviewed, low to normal range -Patient does not desire PPBC -Plan for discharge tomorrow, will discuss possible discharge to bonding Plan of care discussed with: Provider, RN, Patient. Signature: Heather Jacques DO Date: 10/06/2024 Time: 9:03 [facility]11-26-2024 NoteHNO ID: [id number] Author: MATTEO COTTER DO Service: Obstetrics Author Type: Resident Type: Progress Notes Filed: 10/06/2024 00:30 Note Text: SUBJECTIVE: Paged by RN for 05/19 sharp, non-radiating, substernal chest pain that started a few minutes ago. Patient is without other complaints at this time. She is sleeping comfortably in bed upon my arrival to the bedside. Did have one episode of transient dizziness when ambulating to the bathroom which spontaneously resolved. OBJECTIVE: 10/05/24 1445 10/05/24 1659 10/05/24 1907 10/05/24 2210 BP: 116/64 99/65 (!) 92/49 98/54 Pulse: 76 68 82 69 Resp: 15 18 18 18 Temp: 36.8 ?C (98.2 ?F) 37 ?C (98.6 ?F) 36.6 ?C (97.9 ?F) TempSrc: Oral Oral Oral SpO2: 97% 97% 96% 97% Weight: Height: General: lying comfortably in hospital bed Heart: warm and well-perfused. Normal S1-S2, no murmurs, regular rate Lungs: breathing comfortably on room air, CTAB MSK: moderate tenderness to palpation to the mid-sternum, non-radiating Extremities: trace edema bilaterally, calves symmetric Skin: no visible rashes, urticaria, hives ASSESSMENT: 19 year old now with complaint of substernal chest pain PLAN: #chest wall pain in the period - a few minutes of 7/10 sharp, non-radiating, substernal chest pain, no other sxs - vitals within normal limits - regular rate and rhythm, no murmurs/rubs/gallops, CTAB - pain reproducible with palpation - most likely musculoskeletal pain, less concerned for ACS - known RBBB - plan for EKG and troponin - may give scheduled oxycodone for postoperative pain - continue to monitor for acute worsening of sxs or vitals Update: Spoke with CVICU resident, who reviewed the patient's EKG. NSR, no ST changes, most likely msk pain. She will have her attending review the EKG in the morning and call back if any further management is needed. Troponin still pending. Matteo Cotter DO 12:30 [facility]11-26-2024 NoteHNO ID: [id number] Author: KATHY LAIRD APRN.POWER SHOVEL OPERATOR Service: Anesthesiology Author Type: Nurse Accessibility Lift Technician Type: Anesthesia Procedure Notes Filed: 10/05/2024 12:10 Note Text: ANESTHESIOLOGY PROCEDURE NOTE Spinal Block General Information Procedure Start Time/Medication Administration: 10/05/2024 11:55 AM Procedure End time: 10/05/2024 1:57 AM Patient location during procedure: OR Timeout Performed Pre-procedure: timeout performed Reason for Block: primary surgical anesthetic Staffing Anesthesiologist: Jon Cole MD POWER SHOVEL OPERATOR: Kathy Laird APRN.POWER SHOVEL OPERATOR SRNA: Dinesh El SRNA Performed by: CHRISSY Preparation Sterility Preparation: hand hygiene performed prior to procedure, sterile gloves, drapes, and procedure tray, surgical cap used, mask used, sterile drape used during line insertion, skin prep agent completely dried prior to procedure Site Prep: Betadine Procedure Details Patient Position: sitting Ultrasound Guided: Yes Monitoring: Pulse Ox and NIBP Approach: Midline Location: L3-4 Injection Technique: single-shot Needle Needle Type: pencil-tip Needle Gauge: 22 G Needle Length: 4 in CSF: CSF clear Assessment Sensory Level: T4 Events: tolerated well Medications Administered bupivacaine-dextrose 0.75 % (7.5 mg/mL) injection (SENSORCAINE MPF SPINAL) - INTRASPINAL 2 mL - 10/05/2024 11:55:00 AM Comments For this procedure, I was physically present for this entire procedure. Kathy Laird APRN.POWER SHOVEL OPERATOR SIGNATURE: Kathy Laird APRN.POWER SHOVEL OPERATOR PATIENT NAME: Rosy Dominique DATE: October 05, 2024 TIME: 12:07 PM [facility]: [id number] NoteHNO ID: [id number] Author: DERICK LEBRON MD Service: Obstetrics Author Type: Resident Type: Progress Notes Filed: 10/05/2024 11:38 Note Text: Informed by Dr. Ramirez that patient's bedside BPP 2/8. Total BPP 2/10 Will move forward with repeat delivery. telegraph dispatcher, anesthesia informed. Derick Lebron MD OBGYN PGY-2 October 05, 2024 11:38 [facility]11-26-2024 Note Indication Evaluation of well-being Impression - Single, live, intrauterine . - The amniotic fluid volume is normal amount with an MVP of 2.7 cm and an ISAÍAS of 6.1 cm. - The placenta is anterior. - BPP 2/8. Recommendations To L&D for delivery. Maternal Assessment Height 175 cm Height (ft) 5 ft Height (in) 9 in Physical Exam Initial weight (lb) 120 lb Initial BMI 17.72 kg/m Growth Overview Exam date GA BPD (mm) HC (mm) AC (mm) FL (mm) HL (mm) EFW (g) 06/24/2024 18w 5d 41 38% 149.1 25% 125.3 27% 24.1 11% 25.4 24% 209 7% 07/15/2024 21w 5d 48.7 14% 184.4 24% 172.6 59% 34.6 38% 429 33% 09/01/2024 28w 4d 72.1 50% 261.4 35% 243.2 43% 50.7 18% 1178 23% 09/28/2024 32w 3d 79.5 27% 297.7 43% 279.4 36% 58.4 13% 1806 19% Method Transabdominal ultrasound examination Ruffin . Number of fetuses: 1 Dating GA by prior assessment 33 w + 3 d SCOTT by prior assessment: 11/20/2024 Assigned: based on stated SCOTT, selected on 05/11/2024 Assigned GA 33 w + 3 d Assigned SCOTT: 11/20/2024 General Evaluation Cardiac activity present. FHR 130 bpm. movements: present. Presentation: cephalic Placenta: Placental site: anterior Amniotic Fluid Assessment Amount of AF: normal amount MVP 2.7 cm. ISAÍAS 6.1 cm. Q1 2.7 cm, Q2 1.6 cm, Q3 0.0 cm, Q4 1.8 cm Biophysical Profile 0: breathing movements 0: Gross body movements 0: tone 2: Amniotic fluid volume 2/8 Biophysical profile score Performed By: Corrina Bolton RDMS Read By: Jose A Ramirez M.D.MATERNAL [id number] NoteHNO ID: [id number] Author: DERICK LEBRON MD Service: Maternal Medicine Author Type: Resident Type: Progress Notes Filed: 10/05/2024 09:11 Note Text: Patient reported decreased movement this morning. Was put on monitor at 0550. Noted baseline 130 bpm but minimal variable, no accelerations. In setting of Category II tracing, will plan formal BPP today at [address]. Discussed [address] Ramirez. Derick Lebron MD OBGYN PGY-2 October 05, 2024 9:02 [facility]11-26-2024 NoteHNO ID: [id number] Author: JOSE A RAMIREZ MD Service: Maternal Medicine Author Type: Resident Type: Progress Notes Filed: 10/05/2024 12:19 Note Text: Attestation signed by Jose A Ramirez MD at 10/05/2024 12:19 PM Attending Note I evaluated the patient and personally participated in the can components. I agree with the resident's findings and plan as documented and have discussed the case and management of the patient's care with the resident. Decreased movement this morning with nonreactive NST and periods of minimal variability. BPP 2. Plan to move forward with repeat C/S immediately after ultrasound for non-reassuring testing. Patient informed, questions answered. Signature: Dr. Jose A Ramirez MD Date: October 05, 2024 Time: 12:18 PM OBSTETRICS ANTEPARTUM PROGRESS NOTE SERVICE DATE: 10/05/2024 SERVICE TIME: 6:18 AM 19 year old EGA:33w3d admitted for premature rupture of membranes on 10/03. 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; PCP had previously put her on Keppra but never saw Neurology; no longer on medications - Last seizure in January, states was related to her heart - Does not require additional workup, discussed with Cardio-OB History of delivery, currently in third trimester - Patient with prior delivery with PPROM and IUGR at 31 weeks for breech presentation - Patient states previous FGR was due to toxoplasmosis - Per chart review, patient tested negative for toxoplasmosis at that time - Per Dr Hassan, presence/absence of toxoplasmosis does not affect management - Completed CL screening 07/30 - all normal; most recent was 09/13, 3 cm History of - Primary in 2021 breech presentation - Desires TOLAC/ if spontaneously laboring, otherwise would like repeat at 34w - Reviewed risks of TOLAC, patient accepting, consent signed 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 Vasovagal syncope. 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 Needs intermittent evaluation for development of cardiomyopathy. 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 Reports she feels like she has not felt her baby move over the evening. Denies vaginal bleeding, leakage of fluids, contractions. Denies headache, visual changes, right upper quadrant abdominal pain, chest pain, shortness of breath, or worsening edema. Objective : LAST VITALS: Pulse BP Resp O2 Sat Temp Pain 77 102/61 17 96 % 36.7 ?C (98 ?F) 5 PHYSICAL EXAM: General: Appears comfortable and resting in bed Heart: Regular rate Lungs: Unlabored breathing on room air Abdomen: Gravid, nontender Extremities: SCDs in place, nontender MONITORING/ASSESSMENT: Non-stress test pending - patient placed on monitor this AM given decreased movement LABS Diagnostic tests reviewed for today's visit: Most recent labs and imaging results. SIGNATURE: Derick Lebron MD PATIENT NAME: Rosy Dominique DATE: October 05, 2024 TIME: 6:17 [facility]11-25-2024 NoteHNO ID: [id number] Author: VASHTI REED MD Service: Obstetrics Author Type: Physician Type: Procedures Filed: 10/05/2024 06:16 Note Text: OBSTETRICS NST SUMMARY SERVICE DATE: October 04, 2024 The patient is a 19 year old female, , who is at 33w2d with an SCOTT of 11/20/2024, by Last Menstrual Period dating method. NST OBJECTIVE FINDINGS PER NURSE: Start Time: 2099 (10/04/242119 : Onelia Renee RN) Complete Time: 2119 (10/04/242119 : Onelia Renee RN) Indications: Patient Reason For: NST Explanation: Procedure Explained;Monitor Explained;Verbalizes Understanding (10/04/242119 : Onelia Renee RN) Acoustic Stimulator: Interventions: MONITORING/ASSESSMENT: Baseline: 140 bpm (10/04/242119 : Onelia Renee, SCOTT) Variability: Moderate (6-25 bpm) (10/04/242119 : Onelia Renee, SCOTT) Accelerations: Present (10/04/242119 : Onelia Renee, SCOTT) Decelerations: Decelerations: None (10/04/242119 : Onelia Renee, SCOTT) Contractions: Not present (10/04/242119 : Onelia Renee, SCOTT) Frequency: Above information forwarded to dr reed (10/04/242119 : Onelia Renee, SCOTT) for final review and interpretation. SIGNATURE: Onelia Renee RN PATIENT NAME: Rosy Dominique DATE: October 04, 2024 TIME: 9:24 PM PROVIDER INTERPRETATION: Reactive SIGNATURE: Vashti Reed MD DATE: October 05, 2024 TIME: 6:16 [facility]11-25-2024 NoteHNO ID: [id number] Author: JOSE A RAMIREZ MD Service: Obstetrics Author Type: Registered Nurse Type: Procedures Filed: 10/04/2024 12:04 Note Text: Attestation signed by Jose A Ramirez MD at 10/04/2024 12:04 PM Attending Note I have personally reviewed the Non-Stress Test and agree with the documented interpretation. Reactive NST. Signature: Dr. Jose A Ramirez MD Date: 10/04/2024 Time: 12:04 PM OBSTETRICS NST SUMMARY SERVICE DATE: October 04, 2024 The patient is a 19 year old female, , who is at 33w2d with an SCOTT of 11/20/2024, by Last Menstrual Period dating method. NST OBJECTIVE FINDINGS PER NURSE: Start Time: 1123 (10/04/24 1154 : Jessica Pineda, RN) Complete Time: 1154 (10/04/24 1154 : Jessica Pineda, RN) Indications: Premature Ruptured Membranes (10/04/24 1154 : Jessica Pineda, RN) Patient Reason For: monitor baby (10/04/24 1154 : Jessica Pineda, RN) NST Explanation: Procedure Explained;Monitor Explained;Verbalizes Understanding (10/04/24 1154 : Jessica Pineda, RN) Acoustic Stimulator: No (10/04/24 1154 : Jessica Pineda, RN) Interventions: Oral Fluids Given (10/04/24 1154 : Jessica Pineda RN) MONITORING/ASSESSMENT: Baseline: 130 bpm (10/04/24 1154 : Jessica Pineda RN) Variability: Moderate (6-25 bpm) (10/04/24 1154 : Jessica Pineda RN) Accelerations: Present (10/04/24 1154 : Jessica Pineda RN) Decelerations: Decelerations: None (10/04/24 1154 : Jessica Pineda RN) Contractions: Not present (10/04/24 1154 : Jessica Pineda RN) Frequency: toco applied (10/04/24 1123 : Jessica Pineda RN) Above information forwarded to Dr. Ramirez (10/04/24 1154 : Jessica Pineda RN) for final review and interpretation. SIGNATURE: Jessica Pineda RN PATIENT NAME: Rosy Dominique DATE: October 04, 2024 TIME: 12:01 [facility]11-25-2024 NoteHNO ID: [id number] Author: RAHEEM ESCALONA MD Service: Maternal Medicine Author Type: Physician Type: Progress Notes Filed: 10/04/2024 09:10 Note Text: OBSTETRICS ANTEPARTUM PROGRESS NOTE SERVICE DATE: 10/04/2024 SERVICE TIME: 6:23 AM 19 year old EGA:33w2d admitted for premature rupture of membranes on 10/03. 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; PCP had previously put her on Keppra but never saw Neurology; no longer on medications - Last seizure in January, states was related to her heart - Does not require additional workup, discussed with Cardio-OB History of delivery, currently in third trimester - Patient with prior delivery with PPROM and IUGR at 31 weeks for breech presentation - Patient states previous FGR was due to toxoplasmosis - Per chart review, patient tested negative for toxoplasmosis at that time - Per Dr Hassan, presence/absence of toxoplasmosis does not affect management - Completed CL screening 07/30 - all normal; most recent was 09/13, 3 cm History of - Primary in 2021 breech presentation - Desires TOLAC/ if spontaneously laboring, otherwise would like repeat at 34w - Reviewed risks of TOLAC, patient accepting, consent signed 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 Vasovagal syncope. 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 Needs intermittent evaluation for development of cardiomyopathy. Previous baby with growth restriction - Delivered at 31w0d, 1.758 kg POTS (postural orthostatic tachycardia syndrome) - No medications Prematurity - Betamethasone for lung maturity - Initial course 09/15-09/16 - Rescue course initiated, dose 1 10/03 at 0800, plan for dose 2 10/04 at 0800 - S/p magnesium for neuroprotection in previous admission - GBS negative - NICU consulted - 32w3d growth ultrasound EFW 4lb0oz 19%, AC 36% - NST BID - Cephalic History of MRSA infection - Following delivery of first child in 2021 - In breast abscess - Had allergic reaction to vancomycin during treatment Hx of antibiotic allergy - Will administer Ancef and Ceftin instead of penicillin as has allergy to amoxicillin (hives, throat swelling), but has tolerated cephalosporins in the past - Will plan for gentamicin and clindamycin for section in substitution for vancomycin given allergy and history of MRSA Subjective : Rosy reports that she is doing well. Has noted increased contractions, now every 3 minutes. Requesting cervical check. Denies vaginal bleeding. Reports continued leakage of fluid. Reports good movement. Objective : LAST VITALS: Pulse BP Resp O2 Sat Temp Pain 119 117/67 18 97 % 36.5 ?C (97.7 ?F) 2 PHYSICAL EXAM: General: No acute distress, appears comfortable Heart: Regular rate Lungs: Unlabored breathing on room air Abdomen: Gravid, nontender Cervical Exam: 1.5/70/-3 MONITORING/ASSESSMENT: Non-stress test pending LABS Diagnostic tests reviewed for today's visit: Most recent labs and imaging results. SIGNATURE: Derick Lebron MD PATIENT NAME: Rosy Dominique DATE: October 04, 2024 TIME: 6:23 AM I personally saw and examined the patient on 10/04/2024. I reviewed the resident's note. I agree with the resident's assessment and plan unless otherwise noted. Patient hospital day #3 admitted for PPROM at 33/2/7 weeks. Patient clinically stable without signs of infection. She had episode of contractions but now improved. Reviewed reasons to avoid digital exams with the patient. Patient planning on repeat if not going into labor will schedule for Friday when she will be 34 weeks. Continue on [facility] meds. Raheem Escalona, [facility]11-24-2024 NoteHNO ID: [id number] Author: TATIANA MERAZ DO Service: Nursing Author Type: Registered Nurse Type: Procedures Filed: 10/04/2024 06:43 Note Text: Attestation signed by Tatiana Meraz DO at 10/04/2024 6:43 AM PROVIDER INTERPRETATION: Category I and Reactive SIGNATURE: Tatiana Meraz DO DATE: October 04, 2024 TIME: 6:43 AM OBSTETRICS NST SUMMARY SERVICE DATE: October 03, 2024 The patient is a 19 year old female, , who is at 33w1d with an SCOTT of 11/20/2024, by Last Menstrual Period dating method. NST OBJECTIVE FINDINGS PER NURSE: Start Time: 2104 (10/03/242299 : Tre Shepherd RN) Complete Time: 2255 (10/03/242299 : Tre Shepherd RN) Indications: Premature Ruptured Membranes (10/03/242299 : Tre Shepherd RN) Patient Reason For: NST Explanation: Procedure Explained;Monitor Explained;Verbalizes Understanding (10/03/242299 : Tre Shepherd RN) Acoustic Stimulator: Yes (10/03/242299 : Tre Shepherd RN) Interventions: Reposition;Other (See Comment) (LR bolus) (10/03/242299 : Tre Shepherd RN) MONITORING/ASSESSMENT: Baseline: 130 bpm (10/03/242255 : Tre Shepherd RN) Variability: Moderate (6-25 bpm) (10/03/242255 : Tre Shepherd RN) Accelerations: Present (10/03/242255 : Tre Shepherd RN) Decelerations: Decelerations: None (10/03/242255 : Tre Shepherd RN) Contractions: Irregular (10/03/242255 : Tre Shepherd RN) Frequency: x3 (10/03/242255 : Tre Shepherd RN) Above information forwarded to [facility] (10/03/242299 : Tre Shepherd RN) for final review and interpretation. SIGNATURE: Tre Shepherd RN PATIENT NAME: Rosy Dominique DATE: October 03, 2024 TIME: 11:21 [facility]11-24-2024 NoteHNO ID: [id number] Author: MONTY RIVERA MD Service: Obstetrics Author Type: Resident Type: Progress Notes Filed: 10/03/2024 13:06 Note Text: Patient with irregular contractions, not painful or worsening in frequency or intensity since admission. Okay for NST BID and regular diet at this time. Monty Rivera MD CLASSIFIED ADVERTISING CLERK PGY-[facility]24 NoteHNO ID: [id number] Author: MILDRED PETIT MD Service: Nursing Author Type: Registered Nurse Type: Procedures Filed: 10/03/2024 12:08 Note Text: Attestation signed by Mildred Petit MD at 10/03/2024 12:08 PM Attending Note I evaluated the NST. Reactive, category 1. Irregular contractions present. Signature: Mildred Petit MD Date: 10/03/24 Time: 12:07 PM OBSTETRICS NST SUMMARY SERVICE DATE: October 03, 2024 The patient is a 19 year old female, , who is at 33w1d with an SCOTT of 11/20/2024, by Last Menstrual Period dating method. NST OBJECTIVE FINDINGS PER NURSE: Start Time: 903 (10/03/241099 : Etelvina Latham RN) Complete Time: 933 (10/03/241099 : Etelvina Latham RN) Indications: (monitor baby) (10/03/241099 : Etelvina Latham, SCOTT) Patient Reason For: monitor baby (10/03/241099 : Etelvina Latham, SCOTT) NST Explanation: Monitor Explained;Verbalizes Understanding (10/03/241099 : Etelvina Latham RN) Acoustic Stimulator: Interventions: MONITORING/ASSESSMENT: Baseline: 135 bpm (10/03/241099 : Etelvina Latham RN) Variability: Moderate (6-25 bpm) (10/03/241099 : Etelvina Latham RN) Accelerations: Present (10/03/24 1100 : Etelvina Latham RN) Decelerations: Decelerations: None (10/03/24 1100 : Etelvina Lathma RN) Contractions: Irregular (10/03/24 1100 : Etelvina Latham RN) Frequency: 4-5 (10/03/24 1100 : Etelvina Latham RN) Above information forwarded to Enrique (10/03/24 1100 : Etelvina Latham RN) for final review and interpretation. SIGNATURE: Etelvina Latham RN PATIENT NAME: Rosy Dominique DATE: October 03, 2024 TIME: 11:19 [facility]11-19-2024 Progress note* Quick Notes - Anthony Cook APRN.CNP - 09/28/2024 12:19 PM EST S: She is doing well. Denies obstetric concerns or complaints. Endorses active movement. She denies bleeding, lof. Occasional irregular mild ctx- no change. O: BP 104/70 Pulse 114 Wt 66.2 kg (146 lb) LMP 02/14/2024 BMI 21.56 kg/m BMI 21.56 kg/(m^2) See flowsheet for FH, FHR A/P: Rosy Dominique is a 19 year old at 32w3d Previous baby with growth restriction - Growth US today, report not yet finalized. She reports normal growth Supervision of high risk in third trimester - OB precautions, FKC reviewed - Denies painful ctx- not using procardia - denies VB or lof - RSV vaccine today - zofran refill- did not mushroom picker last rx - PNP given - Digester Capper- [facility] - Received breast pump - Undecided on TOLAC vs rLTCS- r/b/a reviewed. States she will consider options RTC 2 weeks for SIVA Cook APRN.CNP 09/28/2024 12:19 PM [facility]11-19-2024 Miscellaneous Notes* Quick Notes - Anthony Cook APRN.CNP - 09/28/2024 12:19 PM EST S: She is doing well. Denies obstetric concerns or complaints. Endorses active movement. She denies bleeding, lof. Occasional irregular mild ctx- no change. O: BP 104/70 Pulse 114 Wt 66.2 kg (146 lb) LMP 02/14/2024 BMI 21.56 kg/m BMI 21.56 kg/(m^2) See flowsheet for FH, FHR A/P: Rosy Dominique is a 19 year old at 32w3d Previous baby with growth restriction - Growth US today, report not yet finalized. She reports normal growth Supervision of high risk in third trimester - OB precautions, FKC reviewed - Denies painful ctx- not using procardia - denies VB or lof - RSV vaccine today - zofran refill- did not mushroom picker last rx - PNP given - Digester Capper- [facility] - Received breast pump - Undecided on TOLAC vs rLTCS- r/b/a reviewed. States she will consider options RTC 2 weeks for SIVA Cook APRN.JANESSA 09/28/2024 12:19 PM [facility] Nurse Note* Arpit Arteaga MA - 09/28/2024 11:36 AM EST Injection of:RSV Dose:0.5ML Route:IM Site:[facility] Rn Emergency:ABRYSVO Lot#:[id number] [facility]#:[id number] Expiration:09/08/25 Provider Present in Clinic:JOYCE Due Date for Next Injection:N/A [facility]11-19-2024 Nurse Note* Arpit Arteaga MA - 09/28/2024 11:36 AM EST Injection of:RSV Dose:0.5ML Route:IM Site:[facility] Rn Emergency:ABRYSVO Lot#:[id number] [facility]#:[id number] Expiration:09/08/25 Provider Present in Clinic:JOYCE Due Date for Next Injection:N/A * Arpit Arteaga MA - 09/28/2024 10:53 AM EST Movement? Active baby Vaginal Bleeding: NO Vaginal fluid leakage of fluid: NO Contractions: Ruy-Sotomayor type Edema: Negative Arpit Arteaga MA documented [facility] Note Indication Evaluation of growth. History of delivery. History of section. History of growth restriction. Seizures. Impression - Single, live, intrauterine . - The biometry is consistent with the assigned gestational dating. - The EFW is 1806 g, at the 19%. AC is at the 36%. - Amniotic fluid volume is normal amount with an MVP of 3.5 cm and ISAÍAS of 11.6 cm. - The placenta is anterior. - No malformations visualized on a limited survey as detailed below. Recommendations - growth scan every 4 weeks - Additional follow up as clinically indicated. Maternal Assessment Height 175 cm Height (ft) 5 ft Height (in) 9 in Physical Exam Initial weight (lb) 120 lb Initial BMI 17.72 kg/m Method Transabdominal ultrasound examination. View: Suboptimal view: limited by position Ruffin . Number of fetuses: 1 Dating GA by prior assessment 32 w + 3 d SCOTT by prior assessment: 11/20/2024 Ultrasound examination on: 09/28/2024 GA by U/S based upon: AC, BPD, Femur, HC GA by U/S 31 w + 4 d SCOTT by U/S: 11/26/2024 Assigned: based on stated SCOTT, selected on 05/11/2024 Assigned GA 32 w + 3 d Assigned SCOTT: 11/20/2024 General Evaluation Cardiac activity present. FHR 135 bpm. movements: present. Presentation: cephalic Placenta: Placental site: anterior Umbilical cord: Cord vessels: 3 vessel cord. Insertion site: normal insertion Amniotic fluid: Amount of AF: normal amount. MVP 3.5 cm. ISAÍAS 11.6 cm. Q1 3.0 cm, Q2 3.5 cm, Q3 2.0 cm, Q4 3.2 cm Growth Overview Exam date GA BPD (mm) HC (mm) AC (mm) FL (mm) HL (mm) EFW (g) 06/24/2024 18w 5d 41 38% 149.1 25% 125.3 27% 24.1 11% 25.4 24% 209 7% 07/15/2024 21w 5d 48.7 14% 184.4 24% 172.6 59% 34.6 38% 429 33% 09/01/2024 28w 4d 72.1 50% 261.4 35% 243.2 43% 50.7 18% 1178 23% 09/28/2024 32w 3d 79.5 27% 297.7 43% 279.4 36% 58.4 13% 1806 19% Biometry Standard BPD 79.5 mm 31w 6d 27% Hadlock OFD 106.5 mm 31w 5d 45% Nicolaides HC 297.7 mm 32w 1d 43% Garrett AC 279.4 mm 32w 0d 36% Hadlock Femur 58.4 mm 30w 3d 13% Garrett EFW 1,806 g 31w 2d 19% Hadlock EFW (lb) 4 lb EFW (oz) 0 oz EFW by: Hadlock ([id number]) Extended Network Associate 3.0 mm Extremities / Bony Struc FL / HC 0.20 Other Structures FHR 135 bpm Anatomy Lateral ventricles: normal Cavum septi pellucidi: suboptimally visualized Cerebellum: normal Cisterna magna: normal Lips: normal Profile: suboptimally visualized Nose: normal 4-chamber view: normal RVOT view: suboptimally visualized LVOT view: suboptimally visualized 3-vessel view: normal Heart / Thorax Situs: situs solitus (normal) Diaphragm: normal Stomach: normal Kidneys: normal Bladder: normal Arms: documented previously Hands: documented previously Legs: documented previously Feet: documented previously Wants to know sex: yes Performed By: Christy Rojas RDMS Read By: Randal Hamilton D.O.MATERNAL [id number] Nurse Note* Arpit Arteaga MA - 09/28/2024 10:53 AM EST Movement? Active baby Vaginal Bleeding: NO Vaginal fluid leakage of fluid: NO Contractions: Mcclain-Sotomayor type Edema: Negative Arpit Arteaga MA [facility]11-12-2024 NoteHNO ID: [id number] Author: ETELVINA MATOS MD Service: Obstetrics Author Type: Registered Nurse Type: Procedures Filed: 10/26/2024 09:52 Note Text: Attestation signed by Etelvina Matos MD at 10/26/2024 9:52 AM OBSTETRICS MONITORING ASSESSMENT On 09/21/24, I interpreted the following NST: NST Interpretation: Reactive (09/21/24 1550 : Etelvina Matos MD) FHR Category: 1 (09/21/24 1700 : Kathy Wall RN) Disposition: Continue Current Management (09/21/24 1550 : Etelvina Matos MD) PROVIDER INTERPRETATION: Reactive SIGNATURE: Etelvina Matos MD PATIENT NAME: Rosy Dominique DATE: October 26, 2024 TIME: 9:52 AM OBSTETRICS NST SUMMARY SERVICE DATE: September 21, 2024 The patient is a 19 year old female, , who is at 31w3d with an SCOTT of 11/20/2024, by Last Menstrual Period dating method. NST OBJECTIVE FINDINGS PER NURSE: Start Time: 1530 (09/21/24 1550 : Мария Brooke RN) Complete Time: 1550 (09/21/24 1550 : Мария Brooke RN) Indications: (r/o ptl) (09/21/24 1550 : Мария Brooke RN) Patient Reason For: check baby (09/21/24 1550 : Мария Brooke RN) NST Explanation: Procedure Explained;Monitor Explained;Verbalizes Understanding (09/21/240 : Мария Brooke RN) Acoustic Stimulator: No (09/21/240 : Мария Brooke RN) Interventions: MONITORING/ASSESSMENT: Baseline: 140 bpm (09/21/24 1550 : Мария Brooke RN) Variability: Moderate (6-25 bpm) (09/21/24 1550 : Мария Brooke RN) Accelerations: Present (09/21/241549 : Мария Brooke RN) Decelerations: Decelerations: None (09/21/240 : Мария Brooke RN) Contractions: Irregular (09/21/241549 : Мария Brooke RN) Frequency: x2 (09/21/241549 : Мария Brooke RN) Above information forwarded to che (09/21/241549 : Мария Brooke RN) for final review and interpretation. SIGNATURE: Мария Brooke RN PATIENT NAME: Rosy Dominique DATE: September 21, 2024 TIME: 4:33 [facility]11-12-2024 NoteHNO ID: [id number] Author: ETELVINA MATOS MD Service: Obstetrics Author Type: Resident Type: Progress Notes Filed: 10/26/2024 09:53 Note Text: Attestation signed by Etelvina Matos MD at 10/26/2024 9:53 AM Attending Note On 09/21/24, I evaluated the patient and personally participated in the can components. I agree with the resident's findings and plan as documented and have discussed the case and management of the patient's care with the resident. Plan of care discussed with: Provider, RN, Patient. Signature: Etelvina Matos MD Date: October 26, 2024 Time: 9:53 AM OBSTETRICS OB ED PROGRESS NOTE SERVICE DATE: September 21, 2024 SERVICE TIME: 3:59 PM Subjective Patient's stated reason for arrival: CHIEF COMPLAINT: Vaginal bleeding HISTORY OF THE PRESENT ILLNESS: The patient is a 19 year old female, , who is at 31w3d with an SCOTT of 11/20/2024, by Last Menstrual Period dating method. Patient is here complaining of vaginal bleeding. Bleeding started after she was seen in the office this morning and had a cervical check. Started with spotting and then had a gush of bright red blood while in the shower that filled her hand. Patient also reports having contractions which she was seen for here last week, patient did not make cervical change while here and her contractions have spaced out. Still having some pelvic pressure and intermittent pain. Cervix was fingertip dilated this morning in the office. Reports decreased movement today that has improved to normal since being here. Also reports a headache and nausea. Has taken Tylenol and Zofran today. History of delivery at 31 weeks. PAST MEDICAL HISTORY Diagnosis Date Brugada syndrome Chronic daily headache Complication of anesthesia Diabetes, gestational POTS (postural orthostatic tachycardia syndrome) Seizure (HCC) Thyroid disease Trauma PAST SURGICAL HISTORY Procedure Laterality Date DELIVERY ONLY 06/14/2022 L'SCOPE DX W/WO BRUSHINGS/WASHINGS 03/17/2024 Catarino to r/o ectopic MASTOTOMY W/EXPLORATION/DRAINAGE ABSCESS DEEP Right 08/18/2022 FAMILY HISTORY Problem Relation Age of Onset None Mother None Father Diabetes Paternal Grandfather OB History T0 L1 SAB5 IAB1 Ectopic0 Multiple0 Live Births1 REVIEW OF SYSTEMS: GENERAL: No weight loss, malaise or fevers. RESPIRATORY: Negative for cough, hemoptysis, wheezing, COPD, dyspnea or shortness of breath CARDIOVASCULAR: Negative for chest pain, leg swelling, hypertension, CHF or palpitations GI: Positive for nausea. No vomiting or diarrhea. : No history of dysuria, frequency or incontinence GLASS ENGRAVER: Positive for vaginal bleeding. Negative for abnormal vaginal discharge. Objective LAST VITALS: Pulse: 84 BP: 106/72 Resp: 18 Temp: 36.2 ?C (97.2 ?F) SpO2: 98 % SENSITIVE EXAMINATION CONSENT: The sensitive examination was discussed with the Patient or Patient's Authorized Electronic Tester. As applicable, any other physician, advance practice provider, medical student, or other health professional student that will be observing or involved in the sensitive examination for educational or training purposes was discussed with the Patient or Authorized Electronic Tester. The Patient or Authorized Electronic Tester has agreed to proceed with the sensitive examination. (Sensitive examination includes inspection and/or palpation of the breasts, pelvis, prostate and anorectal regions) PHYSICAL EXAM: General: WD, WN, laying comfortably in bed Heart: appears well perfused Lungs: normal respiratory effort Abdomen: soft, nontender, no masses Uterus: soft, NT Pelvic: Normal appearing externa genitalia without lesions. Cervix appears friable with scant bleeding from the ectocervix on speculum exam. Cervix appears closed to fingertip dilated. No active bleeding from cervical os. CERVICAL EXAM: See above MONITORING/ASSESSMENT: NST reactive. Category I. Baseline 130, moderate variability, accelerations present, no decelerations. No regular contractions on the monitor. Ultrasound: N/A LABS Diagnostic tests reviewed for today's visit: Most recent labs and imaging results. 19 year old EGA:31w3d presenting with vaginal bleeding after a cervical check in the office this morning. Assessment AND Plan Vaginal bleeding during - Vaginal bleeding after exam in office today. Irregular contractions that have been present for weeks. - Vitals stable -NST reactive with no regular contractions on monitor -Cervix appears friable with scant bleeding from the ectocervix on speculum exam, does not appear changed from exam in office -No bleeding from the uterus visualized on exam -Patient denied Ty (more content not included)...[facility] 09-21-2024 Progress note* Quick Notes - Priti Montiel DO - 09/21/2024 9:21 AM EST S: Patient without complaints. Denies regular, contractions, vaginal bleeding, leaking fluid. Good movement. Reports persistent, irregular contractions, not increasing in severity since two weeks ago. O: BP 103/70 Pulse 82 Wt 66.2 kg (146 lb) LMP 02/14/2024 BMI 21.56 kg/m SVE: /-4 doptones and Fundal height: see flowsheet A/P: Pt is a 19 year old female at 31w3d for SIVA Supervision of high risk in third trimester - Zofran refill for nausea - RSV closer to 36 week florentin - OB early labor precautions reviewed - RTC in 2 weeks for SIVA/growth US History of delivery - history of delivery at 31 weeks - OB admission on 09/14 for short term observation: intact membranes, normal cervical length - SVE: /-4, unchanged from exam on 09/14 contractions - discussed benefits/risks/side effects of tocolytic Procardia XL 30 for symptomatic relief - sent to home pharmacy - provided instructions to take once a day in the morning and to sit for 15 minutes after taking pill to prevent potential dizziness, encouraged PO hydration Plan of care discussed with Dr. Lucas. Priti Montiel DO Attending Note I personally saw and examined the patient. I reviewed the resident's note. I agree with the resident's assessment and plan unless otherwise noted. Reviewed prior ob history, recent STO, contractions, options. Trial of procardia for symptomatic relief. Discussed not used to stop true PTL. Pt wants to try med. Signature: Juan Antonio Lucas MD Date: 09/21/2024 Time: 9:51 AM [facility]11-12-2024 Miscellaneous Notes* Quick Notes - Priti Montiel DO - 09/21/2024 9:21 AM EST S: Patient without complaints. Denies regular, contractions, vaginal bleeding, leaking fluid. Good movement. Reports persistent, irregular contractions, not increasing in severity since two weeks ago. O: BP 103/70 Pulse 82 Wt 66.2 kg (146 lb) LMP 02/14/2024 BMI 21.56 kg/m SVE: /-4 doptones and Fundal height: see flowsheet A/P: Pt is a 19 year old female at 31w3d for SIVA Supervision of high risk in third trimester - Zofran refill for nausea - RSV closer to 36 week florentin - OB early labor precautions reviewed - RTC in 2 weeks for SIVA/growth US History of delivery - history of delivery at 31 weeks - OB admission on 09/14 for short term observation: intact membranes, normal cervical length - SVE: 50/-4, unchanged from exam on 09/14 contractions - discussed benefits/risks/side effects of tocolytic Procardia XL 30 for symptomatic relief - sent to home pharmacy - provided instructions to take once a day in the morning and to sit for 15 minutes after taking pill to prevent potential dizziness, encouraged PO hydration Plan of care discussed with Dr. Lucas. Priti Montiel DO Attending Note I personally saw and examined the patient. I reviewed the resident's note. I agree with the resident's assessment and plan unless otherwise noted. Reviewed prior ob history, recent STO, contractions, options. Trial of procardia for symptomatic relief. Discussed not used to stop true PTL. Pt wants to try med. Signature: Juan Antonio Lucas MD Date: 09/21/2024 Time: 9:51 AM [facility] Nurse Note* Arpit Arteaga MA - 09/21/2024 8:25 AM EST Movement? Active baby Vaginal Bleeding: NO Vaginal fluid leakage of fluid: NO Contractions: Ruy-Sotomayor type Edema: Negative Pt states that she is still having a lot of pain and feeling sick. Arpit Arteaga MA [facility]11-12-2024 Nurse Note* Arpit Arteaga MA - 09/21/2024 8:25 AM EST Movement? Active baby Vaginal Bleeding: NO Vaginal fluid leakage of fluid: NO Contractions: Mcclain-Sotomayor type Edema: Negative Pt states that she is still having a lot of pain and feeling sick. Arpit Arteaga MA documented in [facility] encounter[facility]11-[facility]-2024 NoteHNO ID: [id number] Author: CHLOÉ POWELL DO Service: Obstetrics Author Type: Resident Type: Procedures Filed: 09/18/2024 01:57 Note Text: Attestation signed by Shea Roman MD at 09/18/2024 6:35 AM Attending Note I personally was present for the ultrasound and agree with the above findings. I reviewed with resident's noted and agree. Signature: Shea Rey MD Date: 09/18/2024 Time: 6:34 AM OBSTETRICS LIMITED OB ULTRASOUND REPORT SERVICE DATE: September 17, 2024 SERVICE TIME: 11:25 PM INDICATION: Evaluate the cervix Number of fetuses: 1 General Evaluation: Presentation(s): Vertex Placental position: Anterior Maternal Structures: Cervical length: 3.15 cm, 3.18 cm, 3.65 cm Interpretation: normal cervical length - shortest 3.15 cm. See OB ED note. Discharged to home with labor precautions. Images associated with this report can be found under the Get Images tab in Epic. SIGNATURE: Chloé Powell DO PATIENT NAME: Rosy Dominique DATE: September 17, 2024 TIME: 7:42 PM PAGER/CONTACT #:[facility]11-08-2024 NoteHNO ID: [id number] Author: SAIRA CORREA RN Service: Nursing Author Type: Registered Nurse Type: Procedures Filed: 09/17/2024 19:41 Note Text: Attestation signed by Shea Roman MD at 09/17/2024 7:47 PM PROVIDER INTERPRETATION: Category I and Reactive SIGNATURE: Shea Rey MD DATE: September 17, 2024 TIME: 7:46 PM OBSTETRICS NST SUMMARY SERVICE DATE: September 17, 2024 The patient is a 19 year old female, , who is at 30w6d with an SCOTT of 11/20/2024, by Last Menstrual Period dating method. NST OBJECTIVE FINDINGS PER NURSE: Start Time: 1823 (09/17/241899 : Saira Correa, RN) Complete Time: 1843 (09/17/241899 : Saira Correa, RN) Indications: Other: Comment (triage) (09/17/241899 : Saira Correa RN) Patient Reason For: monitor baby (09/17/241899 : Saira Correa RN) NST Explanation: Monitor Explained;Procedure Explained;Verbalizes Understanding (09/17/241899 : Saira Correa RN) Acoustic Stimulator: No (09/17/241899 : Saira Correa RN) Interventions: MONITORING/ASSESSMENT: Baseline: 135 bpm (09/17/241899 : Matteo Cali RN) Variability: Moderate (6-25 bpm) (09/17/241899 : Matteo Cali RN) Accelerations: Present (09/17/241899 : Saira Correa RN) Decelerations: Decelerations: None (09/17/241899 : Matteo Cali RN) Contractions: Irregular (09/17/241899 : Matteo Cali RN) Frequency: x6 (09/17/241899 : Matteo Cali RN) Above information forwarded to Tomas (09/17/241899 : Saira Correa RN) for final review and interpretation. SIGNATURE: Saira Correa RN PATIENT NAME: Rosy Dominique DATE: September 17, 2024 TIME: 7:41 [facility]11-08-2024 NoteHNO ID: [id number] Author: CHLOÉ POWELL DO Service: Obstetrics Author Type: Resident Type: Progress Notes Filed: 09/18/2024 01:52 Note Text: Attestation signed by Shea Roman MD at 09/18/2024 6:32 AM Attending Note I personally saw and examined the patient. I reviewed the resident's note. I agree with the resident's assessment and plan unless otherwise noted. Signature: Shea Rey MD Date: 09/18/2024 Time: 6:32 AM OBSTETRICS OB ED PROGRESS NOTE SERVICE DATE: September 17, 2024 SERVICE TIME: 6:46 PM Subjective Patient's stated reason for arrival: ruptured membranes, contractions CHIEF COMPLAINT: Rupture of membranes, contractions HISTORY OF THE PRESENT ILLNESS: The patient is a 19 year old female, , who is at 30w6d with an SCOTT of 11/20/2024, by Last Menstrual Period dating method. Patient is here complaining of leaking fluid 1 hour ago felt clear fluid but after voided did not continue to leak. She did state that she continued to have contractions since 1100 this morning. Denies vaginal bleeding. Endorses good movement. States having contractions q2-3 minutes, however this has spaced out while in the OB ED. This patient was recently discharged from the [facility] service for threatened labor yesterday evening. She was admitted from 09/15 - 09/16 for contractions over a few days, change from closed to 1 cm by serial cervical exam. status was reassuring and a course of ANCS, Mg for neuroprotection, antibiotics for GBS prophylaxis was intiaited and admitted for monitoring. She does have a history of PPROM and FGR delivery at 31 weeks by LTCS due to non reassuring heart rate. She had a wet prep that was positive for BV and was treated with flagyl 500 mg BID for 7 days. PAST MEDICAL HISTORY Diagnosis Date Brugada syndrome Chronic daily headache Complication of anesthesia Diabetes, gestational POTS (postural orthostatic tachycardia syndrome) Seizure (HCC) Thyroid disease Trauma PAST SURGICAL HISTORY Procedure Laterality Date DELIVERY ONLY 06/14/2022 L'SCOPE DX W/WO BRUSHINGS/WASHINGS 03/17/2024 Catarino to r/o ectopic MASTOTOMY W/EXPLORATION/DRAINAGE ABSCESS DEEP Right 08/18/2022 FAMILY HISTORY Problem Relation Age of Onset None Mother None Father Diabetes Paternal Grandfather OB History T0 L1 SAB5 IAB1 Ectopic0 Multiple0 Live Births1 REVIEW OF SYSTEMS: The remainder of the review of systems is negative. Objective LAST VITALS: Patient Vitals for the past 24 hrs: BP Temp Temp src 09/17/24 1804 -- 36.2 ?C (97.2 ?F) Temporal 09/17/24 1800 107/68 -- -- SENSITIVE EXAMINATION CONSENT: The sensitive examination was discussed with the Patient or Patient's Authorized Electronic Tester. As applicable, any other physician, advance practice provider, medical student, or other health professional student that will be observing or involved in the sensitive examination for educational or training purposes was discussed with the Patient or Authorized Electronic Tester. The Patient or Authorized Electronic Tester has agreed to proceed with the sensitive examination. (Sensitive examination includes inspection and/or palpation of the breasts, pelvis, prostate and anorectal regions) PHYSICAL EXAM: General: WD, WN, comfortable Heart: RR, S1, S2 Lungs: normal pulmonary exam Abdomen: soft, nontender Extremities: no edema SVE: yellow thin discharge in posterior fornix, no blood in vault. CERVICAL EXAM: Dilation: 1 (09/17/241836 : Chloé Powell DO) Station: -3 (09/17/241836 : Chloé Powell DO) Effacement (%): 50 (09/17/241836 : Chloé Powell DO) MONITORING/ASSESSMENT: testing reassuring - see additional documentation 135/mod/+accels/-decels RNST [place]: q10 minutes Ultrasound: N/A LABS Wet Prep 09/18/2024 1:47 AM Ferning: negative Nitrazine: equivocal Pooling: negative Clue Cells: Negative Trichomonas: Negative Provider: Chloé Powell DO Reference Range Negative Trichomonas and Clue cells Cherelle Albicans is considered normal vaginal randy, but may proliferate to cause an infection Lab Address: [facility] [address] [place] [address] Diagnostic tests reviewed for today's visit: Most recent labs and imaging results. 19 year old EGA:30w6d. Presents with contractions and rule out ruptured membranes Assessment AND Plan Intact amniotic membranes during in third trimester Intact membranes, unchanged cervical exam 50/-3 from hospital discharge yesterday Was told to take flagyl for + BV on wet prep but did not mushroom picker from the pharmacy yet - was planning to do this today Very comfortable in the room Reactive N (more content not included)...[facility]11-07-2024 NoteHNO ID: [id number] Author: LUCY CABALLERO DO Service: Obstetrics Author Type: Resident Type: Progress Notes Filed: 09/16/2024 14:11 Note Text: In to evaluate patient for increased pelvic pain. She is also complaining of intermittent leakage of clear fluid. SVE negative for pooling, nitrazine, and ferning. Cervix visually closed, similar to last cervical exam. Wet prep positive for BV. Will treat with flagyl 500 mg BID for 7 days. Discussed findings with patient. [facility]allero DO [facility] Note* Telephone Encounter - Lucy Caballero DO - 09/16/2024 10:38 AM EST Images from the original note were not included. Patient was seen on L&D for threatened labor. Please call TOMORROW to schedule follow up appointment for next week. Lucy Caballero DO PGY-2 [facility]11-07-2024 Miscellaneous Notes* Telephone Encounter - Lucy Caballero DO - 09/16/2024 10:38 AM EST Images from the original note were not included. Patient was seen on L&D for threatened labor. Please call TOMORROW to schedule follow up appointment for next week. Lucy Caballero DO PGY-2 [facility]24 NoteHNO ID: [id number] Author: MATTHIAS GONZALEZ MD Service: Nursing Author Type: Registered Nurse Type: Procedures Filed: 09/16/2024 10:04 Note Text: Attestation signed by Matthias Gonzalez MD at 09/16/2024 10:04 AM NST reviewed Interpretation: NST is AGA without decelerations. Irregular uterine activity on tocometer. Impression: Reassuring surveillance Matthias Gonzalez MD OBSTETRICS NST SUMMARY SERVICE DATE: September 16, 2024 The patient is a 19 year old female, , who is at 30w5d with an SCOTT of 11/20/2024, by Last Menstrual Period dating method. NST OBJECTIVE FINDINGS PER NURSE: Start Time: 844 (09/16/24929 : Bc Fermin, SCOTT) Complete Time: 929 (09/16/24929 : Bc Fermin, SCOTT) Indications: Labor (09/16/24929 : Bc Fermin, RN) Patient Reason For: monitor baby (09/16/24929 : Bc Fermin, RN) NST Explanation: Procedure Explained;Monitor Explained;Verbalizes Understanding (09/16/24929 : Bc Fremin, RN) Acoustic Stimulator: Interventions: MONITORING/ASSESSMENT: Baseline: 125 bpm (09/16/24929 : Bc Fermin, RN) Variability: Moderate (6-25 bpm) (09/16/24929 : Bc Fermin, RN) Accelerations: Present (09/16/24929 : Bc Fermin, RN) Decelerations: Decelerations: None (09/16/24929 : Bc Fermin, RN) Contractions: Irregular (09/16/24929 : Bc Fermin, RN) Frequency: x6 (09/16/24929 : Bc Fermin, RN) Above information forwarded to Dr. Gonzalez (09/16/24929 : Bc Fermin, RN) for final review and interpretation. SIGNATURE: Bc Fermin RN PATIENT NAME: Rosy Dominique DATE: September 16, 2024 TIME: 9:45 [facility]11-07-2024 NoteHNO ID: [id number] Author: LUCY CABALLERO DO Service: Obstetrics Author Type: Resident Type: Progress Notes Filed: 09/16/2024 06:23 Note Text: OBSTETRICS ANTEPARTUM PROGRESS NOTE SERVICE DATE: 09/16/2024 SERVICE TIME: 5:57 AM 19 year old EGA:30w5d admitted for threatened labor . Plan of care discussed with: Provider, RN, Patient. Assessment AND Plan contractions - Regular painful contractions q3min, worsened over past 3 days, associated vaginal bleeding from capillaries on posterior lip of cervix - SVE changed from closed yesterday to /3 - CL on 09/13 3.00cm - Admitted for threatened labor given cervical change, discomfort, and history of delivery via section - Plan: deescalate monitoring at 0730 this AM to NST daily. Deescalate magnesium and BMZ. Will remain inpatient until BMZ course completed. - Cervix has remain unchanged over 11 hours thus far Prematurity - 30 weeks gestation, has had regular care - BMZ course > will complete this evening 09/16 - Will start magnesium 6g bolus > 2g/hr for neuroprotections - Plan to dc 0730 this AM - Given GBS unknown status, will start Ancef as - GBS pending - NICU consult completed - 28w4d growth US EFW 2#10oz (23%), AC 43% - Continuous monitoring History of delivery, currently in third trimester - Patient with prior delivery with PPROM and IUGR at 31 weeks for breech presentation - Patient states previous FGR was due to toxoplasmosis - Per chart review, patient tested negative for toxoplasmosis at that time - Per Dr Hassan, presence/absence of toxoplasmosis does not affect management - Completed CL screening 07/30- all wnl; most recent was 09/13 and 3.00cm History of - Primary in 2021, see above - For repeat section Seizure (HCC) - Patient states she has a seizure history and her PCP had previously put her on Keppra, but never saw Neurology and no longer on medications - Last seizure in January, states it was related to her heart - Does not require additional workup, 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 Vasovagal syncope. 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 Needs intermittent evaluation for development of cardiomyopathy. 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 She requests zofran at this time for nausea. Denies emesis. Objective : LAST VITALS: Pulse BP Resp O2 Sat Temp Pain 92 99/60 16 97 % 36.9 ?C (98.4 ?F) 6 PHYSICAL EXAM: General: WD, WN, NAD, uncomfortable with contractions HEENT: NC/AT, sclera white, pupils equal Lungs: normal respiratory effort Heart: RR Abdomen: nontender, gravid uterus Uterus: soft, NT Extremities: no edema MONITORING/ASSESSMENT: Category I with 10x10 accels. Appropriate for gestational age. Irregular contractions. LABS Diagnostic tests reviewed for today's visit: Most recent labs and imaging results. SIGNATURE: Lucy Caballero DO PATIENT NAME: Rosy Dominique DATE: September 16, 2024 TIME: 5:57 [facility]11-07-2024 NoteHNO ID: [id number] Author: RJ LINARES MD Service: Obstetrics Author Type: Resident Type: Progress Notes Filed: 09/16/2024 04:11 Note Text: Patient reporting increasing pressure and pain with contractions. Also reporting nausea. Offered cervical exam which she accepted. Cervix unchanged at fingertip/50/-3 on my exam. Offered flexeril and nausea medication which patient declined. Will continue to monitor. Rj Linares [facility]11-06-2024 NoteHNO ID: [id number] Author: MONTY RIVERA MD Service: Obstetrics Author Type: Resident Type: Progress Notes Filed: 09/15/2024 23:51 Note Text: Resident to bedside to assess patient. Notes contractions are more painful, feels some pressure in her pelvis. SVE remains unchanged at 1/50/-3. Will administer does of Tylenol and continue to monitor. 12 hours of magnesium/Ancef is 0730. FHR remains reactive and category 1, toco with contractions q2min. Discussed with Dr. Smith, Dr. Linares. Monty Rivera MD CLASSIFIED ADVERTISING CLERK PGY-[address] [place], [place] [address]11-06-2024 NoteHNO ID: [id number] Author: PANKAJ SMITH MD Service: Obstetrics Author Type: Resident Type: Progress Notes Filed: 09/16/2024 21:36 Note Text: Attestation signed by Pankaj Smith MD at 09/16/2024 9:36 PM Attending Note I personally saw and examined the patient. I reviewed the resident's note. I agree with the resident's assessment and plan unless otherwise noted. Signature: Pankaj Smith MD Date: 09/16/2024 Time: 9:36 PM OBSTETRICS OB ED PROGRESS NOTE SERVICE DATE: September 15, 2024 SERVICE TIME: 7:20 PM Subjective Patient's stated reason for arrival: ctx,vb HISTORY OF THE PRESENT ILLNESS: The patient is a 19 year old female, , who is at 30w4d with an SCOTT of 11/20/2024, by Last Menstrual Period dating method. Patient is here complaining of q3 min contractions. She was evaluated twice in the last 2 days with similar complaints. Yesterday, her cervical exam was closed and contractions/cramping was attributed to recent intercourse. She notes today that the contractions did not improve overnight. She noticed a small amount of vaginal bleeding on a pad which started before she had her friend check her cervix. She said that it was 1cm. Endorses nausea is similar to yesterday and zofran has been helpful. Good movement. Denies leaking of fluid. PAST MEDICAL HISTORY Diagnosis Date Brugada syndrome Chronic daily headache Complication of anesthesia Diabetes, gestational POTS (postural orthostatic tachycardia syndrome) Seizure (HCC) Thyroid disease Trauma PAST SURGICAL HISTORY Procedure Laterality Date DELIVERY ONLY 06/14/2022 L'SCOPE DX W/WO BRUSHINGS/WASHINGS 03/17/2024 [place] to r/o ectopic MASTOTOMY W/EXPLORATION/DRAINAGE ABSCESS DEEP Right 08/18/2022 OB History T0 L1 SAB5 IAB1 Ectopic0 Multiple0 Live Births1 REVIEW OF SYSTEMS: The remainder of the review of systems is negative. Objective LAST VITALS: Pulse: 108 BP: 115/71 Resp: 18 Temp: 36.9 ?C (98.4 ?F) SpO2: 97 % SENSITIVE EXAMINATION CONSENT: The sensitive examination was discussed with the Patient or Patient's Authorized Electronic Tester. As applicable, any other physician, advance practice provider, medical student, or other health professional student that will be observing or involved in the sensitive examination for educational or training purposes was discussed with the Patient or Authorized Electronic Tester. The Patient or Authorized Electronic Tester has agreed to proceed with the sensitive examination. (Sensitive examination includes inspection and/or palpation of the breasts, pelvis, prostate and anorectal regions) PHYSICAL EXAM: General: WD, WN, NAD, uncomfortable with contractions - holds breath and stops talking Heart: RR, appears well perfused Lungs: normal respiratory effort on room air Abdomen: soft, nontender, gravid uterus Extremities: no edema SSE: vulva normal, vaginal epithelium normal, posterior lip of cervix with dilated capillaries and small amount of bleeding, cervix appears multiparous, small amount of physiologic discharge with no bleeding from cervical os CERVICAL EXAM: Dilation: 1 (09/15/241838 : Monty Rivera MD) Station: -3 (09/15/241838 : Monty Rivera MD) Effacement (%): 50 (09/15/241838 : Monty Rivera MD) MONITORING/ASSESSMENT: FHR: 130bpm, moderate variability, accelerations [place]: contractions q2-3 min LABS Diagnostic tests reviewed for today's visit: Most recent labs and imaging results. 19 year old at 30w4d with cervical change in the setting of regular painful contractions, for admission for threatened labor. Assessment AND Plan contractions - Regular painful contractions q3min, worsened over past 3 days, associated vaginal bleeding from capillaries on posterior lip of cervix - SVE changed from closed yesterday to /-3 - CL on 09/13 3.00cm - Will admit for threatened labor given cervical change, discomfort, and history of delivery via section Plan of care discussed with: Provider, RN, Patient and Dr. Smith . SIGNATURE: Monty Rivera MD PATIENT NAME: Rosy Dominique DATE: September 15, 2024 TIME: 6:18 PM [id number] Note HNO ID: [id number] Author: ETELVINA MATOS MD Service: Obstetrics Author Type: Registered Nurse Type: Procedures Filed: 09/23/2024 13:50 Note Text: Attestation signed by Etelvina Matos MD at 09/23/2024 1:50 PM OBSTETRICS MONITORING ASSESSMENT On 09/14/24, I interpreted the following NST: NST Interpretation: Reactive (09/14/242319 : Etelvina Matos MD) FHR Category: 1 (09/14/242319 : Ciara Love, SCOTT) Disposition: Continue Current Management (09/14/242319 : Etelvina Matos MD) PROVIDER INTERPRETATION: Reactive SIGNATURE: Etelvina Matos MD PATIENT NAME: Rosy Dominique DATE: September 23, 2024 TIME: 1:50 PM OBSTETRICS NST SUMMARY SERVICE DATE: September 15, 2024 The patient is a 19 year old female, , who is at 30w4d with an SCOTT of 11/20/2024, by Last Menstrual Period dating method. NST OBJECTIVE FINDINGS PER NURSE: Start Time: 2299 (09/14/242319 : Ciara Love RN) Complete Time: 2319 (09/14/242319 : Ciara Love, SCOTT) Indications: (triage) (09/14/242319 : Ciara Love, RN) Patient Reason For: monitor baby (09/14/242319 : Ciara Love, RN) NST Explanation: Procedure Explained;Monitor Explained;Verbalizes Understanding (09/14/242319 : Ciara Love, RN) Acoustic Stimulator: No (09/14/242319 : Ciara Love, RN) Interventions: MONITORING/ASSESSMENT: Baseline: 135 bpm (09/14/242319 : Ciara Love, SCOTT) Variability: Moderate (6-25 bpm) (09/14/242319 : Ciara Love, RN) Accelerations: Present (09/14/242319 : Ciara Love, SCOTT) Decelerations: Decelerations: None (09/14/242319 : Ciara Love, RN) Contractions: Regular (09/14/242319 : Ciara Love, RN) Frequency: 3-5 (09/14/242319 : Ciara Love, RN) Above information forwarded to Dr. Matos (09/14/242319 : Ciara Love, RN) for final review and interpretation. SIGNATURE: Ciara Love RN PATIENT NAME: Rosy Dominique DATE: September 15, 2024 TIME: 2:40 [facility]11-06-2024 NoteHNO ID: [id number] Author: MONTY RIVERA MD Service: Obstetrics Author Type: Resident Type: Progress Notes Filed: 09/15/2024 01:08 Note Text: Prior to discharge, the following Plan of care discussed with: Provider, RN, Patient. Nausea improved with Zofran, feels like contractions have spaced. SVE unchanged and remains closed. Discharge Vital signs: .BP 131/80 Pulse 102 Temp 36.8 ?C (98.2 ?F) (Temporal) Resp 18 Ht 175.3 cm (5' 9) Wt 67.6 kg (149 lb) LMP 02/14/2024 SpO2 99% BMI 22.00 kg/m? Follow-up: As scheduled for SIVA on 09/28/24 Precautions: labor precautions discussed, discussed pelvic rest as an option to prevent further episodes of cramping/contractions following intercourse New or adjusted home medications: n/a Other recommendations/instructions: n/a Discussed with primary Ob Provider/Group: Dr. Matos, Dr. Leopoldo Rivera, [facility]11-05-2024 NoteHNO ID: [id number] Author: ETELVINA MATOS MD Service: Obstetrics Author Type: Resident Type: Progress Notes Filed: 09/23/2024 13:25 Note Text: Attestation signed by Etelvina Matos MD at 09/23/2024 1:25 PM Attending Note On 09/14/2024, I evaluated the patient and personally participated in the can components. I agree with the resident's findings and plan as documented and have discussed the case and management of the patient's care with the resident. Plan of care discussed with: Provider, RN, Patient. Signature: Etelvina Matos MD Date: September 23, 2024 Time: 1:19 PM OBSTETRICS OB ED PROGRESS NOTE SERVICE DATE: September 14, 2024 SERVICE TIME: 11:00 PM Subjective CHIEF COMPLAINT: Contractions HISTORY OF THE PRESENT ILLNESS: The patient is a 19 year old female, , who is at 30w3d with an SCOTT of 11/20/2024, by Last Menstrual Period dating method. Patient is here complaining of regular painful contractions every 3 minutes for the past hour. Good movement. Denies leaking of fluid. Noted a small amount of blood with wiping this evening, but did not soak a pad or notice on her underwear in the OB ED. She was evaluated for a similar complaint last evening and cervical length was performed out of an abundance of caution and was found to be 3.00cm, she was not roseann at that time. She had SIVA visit today where she noted her symptoms had improved slightly. She took tylenol which helped as well. She had intercourse this afternoon and noticed the episode of bleeding and cramping/contractions increase in intensity following. Noted mild nausea this morning for which she took Zofran and symptoms were relieved. She has been tolerating PO foods and fluids without difficulty. Denies dysuria, hematuria, constipation, diarrhea. PAST MEDICAL HISTORY Diagnosis Date Brugada syndrome Chronic daily headache Complication of anesthesia Diabetes, gestational POTS (postural orthostatic tachycardia syndrome) Seizure (HCC) Thyroid disease Trauma PAST SURGICAL HISTORY Procedure Laterality Date DELIVERY ONLY 06/14/2022 L'SCOPE DX W/WO BRUSHINGS/WASHINGS 03/17/2024 [place] to r/o ectopic MASTOTOMY W/EXPLORATION/DRAINAGE ABSCESS DEEP Right 08/18/2022 OB History T0 L1 SAB5 IAB1 Ectopic0 Multiple0 Live Births1 REVIEW OF SYSTEMS: The remainder of the review of systems is negative. Objective LAST VITALS: Pulse: 102 BP: 131/80 Resp: 18 Temp: 36.8 ?C (98.2 ?F) SpO2: 99 % Height: 175.3 cm (5' 9) Weight: 67.6 kg (149 lb) BMI: 22 SENSITIVE EXAMINATION CONSENT: The sensitive examination was discussed with the Patient or Patient's Authorized Electronic Tester. As applicable, any other physician, advance practice provider, medical student, or other health professional student that will be observing or involved in the sensitive examination for educational or training purposes was discussed with the Patient or Authorized Electronic Tester. The Patient or Authorized Electronic Tester has agreed to proceed with the sensitive examination. (Sensitive examination includes inspection and/or palpation of the breasts, pelvis, prostate and anorectal regions) PHYSICAL EXAM: General: WD, WN, NAD, mildly uncomfortable appearing Heart: RR, appears well perfused Lungs: normal respiratory effort on room air Abdomen: soft, gravid uterus, no rebound tenderness or guarding, no pain across previous Pfannenstiel incision, mildly tender to palpation across lower abdomen, no contractions palpable at time of pain although palpate as irritability Extremities: no edema SSE: vulva normal, vaginal epithelium normal with exception of small abrasion on posterior wall near cervix, cervix normal, visually closed but multiparous in appearance, no discharge in vaginal vault CERVICAL EXAM: Dilation: Closed (09/14/24 2327 : Monty Rivera MD) MONITORING/ASSESSMENT: FHR: 135bpm, moderate variability, accelerations (10x10), no decelerations; reactive, appropriate for gestational age [place]: contractions q2-3min vs irritability LABS Diagnostic tests reviewed for today's visit: Most recent labs and imaging results. Urine dip today unremarkable for signs of infection or dehydration at SIVA visit. 19 year old at 30w3d with abdominal pain and vaginal spotting in related to recent intercourse. Assessment AND Plan 30 weeks gestation of - NST reactive, appropriate for gestational age - No LOF, regular FM Abdominal pain affecting - onset of intermittent cramping this evening, worsened from yesterday, did have intercourse this afternoon after SIVA visit - VS wnl - [place]: no contractions, possible irritability - Abd: soft, no inc (more content not included)...[facility] 09-14-2024 Progress note* Quick Notes - Priti Montiel DO - 09/14/2024 10:15 AM EST S: Patient without complaints. Denies contractions, vaginal bleeding, leaking fluid. Good movement. O: BP 108/72 Pulse 92 Wt 67.6 kg (149 lb) LMP 02/14/2024 BMI 22.00 kg/m doptones and Fundal height: see flowsheet A/P: Pt is a 19 year old female at 30w3d for SIVA Seizure (HCC) - denies any symptoms Abdominal pain affecting - seen in the OB ED last night - symptoms have mildly improved - declines Tylenol Supervision of high risk in third trimester - flat affect -depression screened, negative for any signs of depression or anxiety. Denies any thoughts of self harm or SI - TDAP today - last growth US reviewed, normal EFW - elects for repeat , consent signed - will schedule repeat c/s at next SIVA - 32w growth US scheduled in next two weeks Plan of care discussed with Dr. Vaughn. Priti Montiel DO Attending Note I discussed with resident. The patient was seen with the resident. I reviewed the resident's note. I agree with the resident's assessment and plan unless otherwise noted. We did discuss the RSV vaccine and the patient will schedule for between 32-36 weeks. Signature: Nicole Vaughn DO Date: 09/14/2024. Time: 10:32 AM [facility]11-05-2024 Miscellaneous Notes* Quick Notes - Priti Montiel DO - 09/14/2024 10:15 AM EST S: Patient without complaints. Denies contractions, vaginal bleeding, leaking fluid. Good movement. O: BP 108/72 Pulse 92 Wt 67.6 kg (149 lb) LMP 02/14/2024 BMI 22.00 kg/m doptones and Fundal height: see flowsheet A/P: Pt is a 19 year old female at 30w3d for ISVA Seizure (HCC) - denies any symptoms Abdominal pain affecting - seen in the OB ED last night - symptoms have mildly improved - declines Tylenol Supervision of high risk in third trimester - flat affect -depression screened, negative for any signs of depression or anxiety. Denies any thoughts of self harm or SI - TDAP today - last growth US reviewed, normal EFW - elects for repeat , consent signed - will schedule repeat c/s at next SIVA - 32w growth US scheduled in next two weeks Plan of care discussed with Dr. Vaughn. Priti Montiel DO Attending Note I discussed with resident. The patient was seen with the resident. I reviewed the resident's note. I agree with the resident's assessment and plan unless otherwise noted. We did discuss the RSV vaccine and the patient will schedule for between 32-36 weeks. Signature: Nicole Vaughn DO Date: 09/14/2024. Time: 10:32 AM [facility] Nurse Note* Clare Begum LPN - 09/14/2024 10:14 AM EST Tdap Roderick [id number] 03/2026 [facility]11-05-2024 Nurse Note* Clare Begum LPN - 09/14/2024 10:14 AM EST Tdap Roderick [id number] 03/2026 * Clare Begum LPN - 09/14/2024 9:27 AM EST Movement? Active baby Vaginal Bleeding: NO Vaginal fluid leakage of fluid: NO Contractions: no contractions Edema: Negative Clare Begum LPN documented in this encounter[facility] Center11-[facility]24 Nurse Note* Clare Begum LPN - 09/14/2024 9:27 AM EST Movement? Active baby Vaginal Bleeding: NO Vaginal fluid leakage of fluid: NO Contractions: no contractions Edema: Negative Clare Begum LPN [facility]11-04-2024 NoteHNO ID: [id number] Author: VASHTI REED MD Service: Nursing Author Type: Physician Type: Procedures Filed: 09/14/2024 06:26 Note Text: OBSTETRICS NST SUMMARY SERVICE DATE: September 13, 2024 The patient is a 19 year old female, , who is at 30w2d with an SCOTT of 11/20/2024, by Last Menstrual Period dating method. NST OBJECTIVE FINDINGS PER NURSE: Start Time: 2024 (09/13/242024 : Maryam Doyle RN) Complete Time: 2044 (09/13/242044 : Maryam Doyle, SCOTT) Indications: Other: Comment (LUCIAN C/O abd pain) (09/13/242024 : Maryam Doyle, SCOTT) Patient Reason For: check baby (09/13/242024 : Maryam Doyle, SCOTT) NST Explanation: Procedure Explained;Monitor Explained;Verbalizes Understanding (09/13/242024 : Maryam Doyle RN) Acoustic Stimulator: No (09/13/242044 : Maryam Doyle, SCOTT) Interventions: MONITORING/ASSESSMENT: Baseline: 130 bpm (09/13/242111 : Onelia Renee, RN) Variability: Moderate (6-25 bpm) (09/13/242111 : Onelia Renee, RN) Accelerations: Present (09/13/242111 : Onelia Renee RN) Decelerations: Decelerations: None (09/13/242111 : Onelia Renee, SCOTT) Contractions: Not present (09/13/242111 : Onelia Renee, SCOTT) Frequency: Above information forwarded to Dr. Reed (09/13/242044 : Maryam Doyle, SCOTT) for final review and interpretation. SIGNATURE: Maryam Doyle RN PATIENT NAME: Rosy Dominique DATE: September 13, 2024 TIME: 10:15 PM PROVIDER INTERPRETATION: Reactive SIGNATURE: Vashti Reed MD DATE: September 14, 2024 TIME: 6:26 [facility]11-04-2024 NoteHNO ID: [id number] Author: VASHTI REED MD Service: Obstetrics Author Type: Resident Type: Procedures Filed: 09/13/2024 21:56 Note Text: Attestation signed by Vashti Reed MD at 09/13/2024 9:56 PM The resident performed the entire procedure under my direct supervision Reassuring cervical length Vashti Reed MD 02/12/20183:45 PM BEDSIDE PROCEDURE NOTE US OB LIMITED (POC) LND USE ONLY Date/Time: 09/13/2024 9:35 PM Performed by: Monty Rivera MD Authorized by: Jose A Ramirez MD Limited Ultrasound: 2nd/3rd Trimester Probe used: Endocavitary Indications: Evaluate the cervix Ultrasound Findings: Number of Fetuses: One Fetus: Presentation: Vertex Conclusion Clinical Gestational age: 30w2d Ultrasound Gestational age: Impression: Appropriate for gestational age Comments: Cervical length: 3.00cm (3.03cm, 3.49cm) Imaging study performed by: Resident/ELIAS with Attending supervision Resident Performing Ultrasound: Dr. Monty Rivera Attending Supervising/Performing Ultrasound: Dr. Vashti Reed Images saved for exam: Yes Technological issues prevented images from being exported. Images printed to paper chart and will be available in [facility] under Scanned Documents after discharge. SIGNATURE: Monty Rivera MD PATIENT NAME: Rosy Dominique DATE: September 13, 2024 TIME: 9:35 [facility]11-04-2024 NoteHNO ID: [id number] Author: VASHTI REED MD Service: Obstetrics Author Type: Resident Type: Progress Notes Filed: 09/13/2024 22:01 Note Text: Attestation signed by Vashti Reed MD at 09/13/2024 10:01 PM Attending Note I evaluated the patient and personally participated in the can components. I agree with the resident's findings and plan with the following revisions and/or additions: Patient with c/o contractions. None seen on monitor. No contractions palpated when stated she had pain. Patient seen yesterday at [facility], cervix was closed. Cx closed on exam today. Given h/o PTD at 30 weeks, repeat CL performed and was reassuring. Of note, patient affect very flat. Signature: Vashti Reed MD Date: 09/13/2024 Time: 9:57 PM OBSTETRICS OB ED PROGRESS NOTE SERVICE DATE: September 13, 2024 SERVICE TIME: 9:02 PM Subjective Patient's stated reason for arrival: pain in stomach HISTORY OF THE PRESENT ILLNESS: The patient is a 19 year old female, , who is at 30w2d with an SCOTT of 11/20/2024, by Last Menstrual Period dating method. Patient is here complaining of abdominal cramping starting approximately 90 minutes ago. She states the pain feels like a very strong period cramp and will last for about a minute and happen every few minutes. She describes this as separate from cramping/contractions she has been experiencing irregularly for weeks. She has a history of PPROM at 31 weeks followed by delivery for breech presentation. Denies any vaginal bleeding or loss of fluid. Notes regular movement. She denies dysuria, hematuria, constipation, diarrhea. is otherwise uncomplicated. Patient was seen for similar problem on 08/22/24 and CL at this time was within normal limits at 3.27. She presented to [facility] yesterday for similar symptoms, SVE at that time closed. PAST MEDICAL HISTORY Diagnosis Date 27 weeks gestation of 08/22/2024 Brugada syndrome Chronic daily headache Complication of anesthesia Diabetes, gestational POTS (postural orthostatic tachycardia syndrome) Seizure (HCC) Thyroid disease Trauma PAST SURGICAL HISTORY Procedure Laterality Date DELIVERY ONLY 06/14/2022 L'SCOPE DX W/WO BRUSHINGS/WASHINGS 03/17/2024 [place] to r/o ectopic MASTOTOMY W/EXPLORATION/DRAINAGE ABSCESS DEEP Right 08/18/2022 OB History T0 L1 SAB5 IAB1 Ectopic0 Multiple0 Live Births1 REVIEW OF SYSTEMS: The remainder of the review of systems is negative. Objective LAST VITALS: Pulse: 88 BP: 110/76 Resp: 18 Temp: 37 ?C (98.6 ?F) SpO2: 99 % SENSITIVE EXAMINATION CONSENT: The sensitive examination was discussed with the Patient or Patient's Authorized Electronic Tester. As applicable, any other physician, advance practice provider, medical student, or other health professional student that will be observing or involved in the sensitive examination for educational or training purposes was discussed with the Patient or Authorized Electronic Tester. The Patient or Authorized Electronic Tester has agreed to proceed with the sensitive examination. (Sensitive examination includes inspection and/or palpation of the breasts, pelvis, prostate and anorectal regions) PHYSICAL EXAM: General: WD, WN, NAD, mildly uncomfortable appearing Heart: RR, no murmur Lungs: normal respiratory effort on room air Abdomen: soft, gravid uterus, no rebound tenderness or guarding, no pain across previous Pfannenstiel incision, pain reproducible with lateral manipulation to maternal left, mildly tender to palpation across lower abdomen, no contractions palpable at time of pain Extremities: no edema SSE: vulva normal, vaginal epithelium normal, cervix normal, visually closed but multiparous in appearance, no discharge in vaginal vault CERVICAL EXAM: Dilation: Closed (09/13/242053 : Monty Rivera MD) MONITORING/ASSESSMENT: FHR: 130bpm, moderate variability, accelerations (10x10), no decelerations; reactive, appropriate for gestational age [place]: no contractions, possible irritability Ultrasound: Cervical length: 3.00cm (3.03cm. 3.49cm) LABS Diagnostic tests reviewed for today's visit: Most recent labs and imaging results. Recent Labs 09/13/242116 COLOR Colorless CLARITY Turbid* UGLUC Negative UBILI Negative UKET Negative SPGR 1.012 UHB Trace UPH 7.0 UPROT Negative NITRITES Negative LEUKEST 25 Trisha/uL UWBC 0-5 /HPF URBC 3-5 /HPF* 19 year old at 30w2d with abdominal pain in . Assessment AND Plan 30 weeks gestation of - NST reactive, appropriate for gestational age - No VB, no LOF, regular FM Abdominal pain affecting - onset of intermittent cramping approximately 90 (more content not included)... [facility]10-26-2024 NoteHNO ID: [id number] Author: JESSICA WHITMAN PA-C Service: ? Author Type: Physician Generalist Type: Progress Notes Filed: 09/04/2024 10:42 Note Text: Subjective 19 y/o female Pt is 29 wks . She c/o toothache for the past several days. She denies fever, chills, facial swelling, nausea or vomiting. No recent dental work. 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 Using tylenol at home with little improvement The history is provided by the patient. Dental Problem Pertinent negatives include no chills, congestion, coughing, fever, headaches, myalgias, nausea, sore throat, vomiting or weakness. Review of Systems Constitutional: Negative for chills and fever. HENT: Negative for congestion, ear pain, sinus pain and sore throat. Respiratory: Negative for cough. Gastrointestinal: Negative for nausea and vomiting. Musculoskeletal: Negative for myalgias. Neurological: Negative for dizziness, weakness and headaches. Psychiatric/Behavioral: The patient is not nervous/anxious. Objective BP 103/69 (BP Site: Right Arm, BP Position: Sitting, BP Cuff Size: Regular Adult) Pulse 98 Temp 36.7 ?C (98.1 ?F) (Oral) Resp 20 LMP 02/14/2024 SpO2 98% Physical Exam Vitals and nursing note reviewed. Constitutional: General: She is not in acute distress. Appearance: Normal appearance. She is not ill-appearing. HENT: Head: Normocephalic. Jaw: There is normal jaw occlusion. No trismus, tenderness, swelling or pain on movement. Mouth/Throat: Lips: [place]. Mouth: Mucous membranes are moist. No oral lesions. Dentition: Dental caries present. No dental tenderness, gingival swelling or dental abscesses. Pharynx: Oropharynx is clear. Uvula midline. No uvula swelling. Musculoskeletal: Cervical back: Normal range of motion and neck supple. Lymphadenopathy: Cervical: No cervical adenopathy. Skin: General: Skin is warm and dry. Findings: No erythema. Neurological: Mental Status: She is alert and oriented to person, place, and time. Psychiatric: Mood and Affect: Mood and affect normal. Behavior: Behavior normal. Thought Content: Thought content normal. Cognition and Memory: Memory normal. Judgment: Judgment normal. ASSESSMENT/PLAN: 1. Dentalgia - ICD9: 525.9, ICD10: K08.89 - start antibiotics today - follow up with your dentist in the next 1-2 weeks - can use over the counter anbesol for pain relief. - take tylenol for pain every 4 hours - do not exceed 3,000 gm per day - Go to the Emergency Department if you develop fever, facial swelling, redness, warmth, difficulty swallowing or breathing or any other concerns. [facility]10-26-2024 History of Present illness Narrative* Jessica Whitman PA-C - 09/04/2024 10:38 AM EDT Images from the original note were not included. Subjective 19 y/o female Pt is 29 wks . She c/o toothache for the past several days. She denies fever, chills, facial swelling, nausea or vomiting. No recent dental work. 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 Using tylenol at home with little improvement The history is provided by the patient. Dental Problem Pertinent negatives include no chills, congestion, coughing, fever, headaches, myalgias, nausea, sore throat, vomiting or weakness. Review of Systems Constitutional: Negative for chills and fever. HENT: Negative for congestion, ear pain, sinus pain and sore throat. Respiratory: Negative for cough. Gastrointestinal: Negative for nausea and vomiting. Musculoskeletal: Negative for myalgias. Neurological: Negative for dizziness, weakness and headaches. Psychiatric/Behavioral: The patient is not nervous/anxious. Objective BP 103/69 (BP Site: Right Arm, BP Position: Sitting, BP Cuff Size: Regular Adult) Pulse 98 Temp36.7 C (98.1 F) (Oral) Resp 20 LMP 02/14/2024 SpO2 98% Physical Exam Vitals and nursing note reviewed. Constitutional: General: She is not in acute distress. Appearance: Normal appearance. She is not ill-appearing. HENT: Head: Normocephalic. Jaw: There is normal jaw occlusion. No trismus, tenderness, swelling or pain on movement. Mouth/Throat: Lips: [place]. Mouth: Mucous membranes are moist. No oral lesions. Dentition: Dental caries present. No dental tenderness, gingival swelling or dental abscesses. Pharynx: Oropharynx is clear. Uvula midline. No uvula swelling. Musculoskeletal: Cervical back: Normal range of motion and neck supple. Lymphadenopathy: Cervical: No cervical adenopathy. Skin: General: Skin is warm and dry. Findings: No erythema. Neurological: Mental Status: She is alert and oriented to person, place, and time. Psychiatric: Mood and Affect: Mood and affect normal. Behavior: Behavior normal. Thought Content: Thought content normal. Cognition and Memory: Memory normal. Judgment: Judgment normal. ASSESSMENT/PLAN: 1. Dentalgia - ICD9: 525.9, ICD10: K08.89 - start antibiotics today - follow up with your dentist in the next 1-2 weeks - can use over the counter anbesol for pain relief. - take tylenol for pain every 4 hours - do not exceed 3,000 gm per day - Go to the Emergency Department if you develop fever, facial swelling, redness, warmth, difficultyswallowing or breathing or any other concerns. Jessica Whitman PA-C [facility] Instructions* Patient Instructions* Jessica Whitman PA-C - 09/04/2024 10:27 AM EDT ASSESSMENT/PLAN: 1. Dentalgia - ICD9: 525.9, ICD10: K08.89 - start antibiotics today - follow up with your dentist in the next 1-2 weeks - can use over the counter anbesol for pain relief. - take tylenol for pain every 4 hours - do not exceed 3,000 gm per day - Go to the Emergency Department if you develop fever, facial swelling, redness, warmth, difficultyswallowing or breathing or any other concerns. Jessica Whitman PA-C documented [facility] encounter[facility]10-[facility]24 Telephone encounter Note * Telephone Encounter - Fe Payan RN - 09/01/2024 1:09 PM EDT Breastpump order signed and faxed to Hitesh Jensen with successful transmission. [facility] Miscellaneous Notes* Telephone Encounter - Fe Payan RN - 09/01/2024 1:09 PM EDT Breastpump order signed and faxed to Hitesh Jensen with successful transmission. documented in this encounterU[facility] Center10-[facility]-2024 Note Indication Evaluation of growth. History of delivery. History of section. History of growth restriction. Seizures. Impression - Single, live, intrauterine . - The biometry is consistent with the assigned gestational dating. - The EFW is 1178 g, at the 23%. AC is at the 43%. - Amniotic fluid volume is normal amount with an MVP of 6.7 cm and ISAÍAS of 20.4 cm. - The placenta is anterior. - No malformations visualized on a limited survey as detailed below. Recommendations Additional follow-up as clinically indicated. Maternal Assessment Height 175 cm Height (ft) 5 ft Height (in) 9 in Physical Exam Initial weight (lb) 120 lb Initial BMI 17.72 kg/m Method Transabdominal ultrasound examination [place] . Number of fetuses: 1 Dating GA by prior assessment 28 w + 4 d SCOTT by prior assessment: 11/20/2024 Ultrasound examination on: 09/01/2024 GA by U/S based upon: AC, BPD, Femur, HC GA by U/S 28 w + 2 d SCOTT by U/S: 11/22/2024 Assigned: based on stated SCOTT, selected on 05/11/2024 Assigned GA 28 w + 4 d Assigned SCOTT: 11/20/2024 General Evaluation Cardiac activity present. FHR 136 bpm. movements: present. Presentation: cephalic Placenta: Placental site: anterior Umbilical cord: Cord vessels: 3 vessel cord. Insertion site: normal insertion Amniotic fluid: Amount of AF: normal amount. MVP 6.7 cm. ISAÍAS 20.4 cm. Q1 6.7 cm, Q2 6.3 cm, Q3 3.6 cm, Q4 3.8 cm Growth Overview Exam date GA BPD (mm) HC (mm) AC (mm) FL (mm) HL (mm) EFW (g) 06/24/2024 18w 5d 41 38% 149.1 25% 125.3 27% 24.1 11% 25.4 24% 209 7% 07/15/2024 21w 5d 48.7 14% 184.4 24% 172.6 59% 34.6 38% 429 33% 09/01/2024 28w 4d 72.1 50% 261.4 35% 243.2 43% 50.7 18% 1178 23% Biometry Standard BPD 72.1 mm 29w 0d 50% Hadlock OFD 90.4 mm 26w 6d 15% Nicolaides HC 261.4 mm 28w 0d 35% Garrett AC 243.2 mm 28w 4d 43% Hadlock Femur 50.7 mm 27w 2d 18% Garrett EFW 1,178 g 27w 6d 23% Hadlock EFW (lb) 2 lb EFW (oz) 10 oz EFW by: Hadlock ([id number]) [employer] Associate 3.3 mm Extremities / Bony Struc FL / HC 0.19 Other Structures FHR 136 bpm Anatomy Lateral ventricles: normal Cavum septi pellucidi: normal Cerebellum: normal Cisterna magna: normal Lips: normal Profile: normal Nose: normal 4-chamber view: normal RVOT view: normal LVOT view: normal 3-vessel view: normal Heart / Thorax Situs: situs solitus (normal) Diaphragm: normal Stomach: normal Kidneys: normal Bladder: normal Wants to know sex: yes Performed By: Corrina Bolton RDMS Read By: Randal Hamilton D.O.MATERNAL [id number] Progress note* Quick Notes - Anthony Cook APRN.DRAPERY CUTTER MACHINE - 08/31/2024 10:52 AM EDT S: She is doing well. Denies obstetric concerns or complaints. Endorses active movement. She denies bleeding, lof. Irregular mild ctx. O: BP 92/63 Pulse 86 Wt 67 kg (147 lb 12.8 oz) LMP 02/14/2024 BMI 21.83 kg/m BMI 21.83 kg/(m^2) See flowsheet for FH, FHR A/P: Rosy Dominique is a 19 year old at 28w3d Previous baby with growth restriction - 28w Growth US tomorrow 09/01 Supervision of high risk in third trimester - OB precautions, FKC reviewed - passed 1 hour gct - Desires Tdap but not today, will also desire RSV vaccine at 32w - third trimester folder provided and reviewed - Plans to exclusively pump- breast pump rx completed - Safe sleep video watched and discussed - Maternal and Infant Nutrition Maternal nutrition: Discussed maternal nutrition, hydration, PNV Denies food insecurity- discussed WIC and [facility] food pantry nutrition: benefits of BF, S2S, rooming in and feeding on cue exclusive BF, proper positioning, assessing a good latch, maintaining supply, signs your baby is getting enough milk concerns at home, support resources Provided handouts: [employer] maternal nutrition CCAG for the Best Feeding booklet RTC 2 weeks for SIVA Cook APRN.CNP 08/31/2024 10:52 AM [facility]10[facility] Miscellaneous Notes* Quick Notes - Anthony Cook APRN.CNP - 08/31/2024 10:52 AM EDT S: She is doing well. Denies obstetric concerns or complaints. Endorses active movement. She denies bleeding, lof. Irregular mild ctx. O: BP 92/63 Pulse 86 Wt 67 kg (147 lb 12.8 oz) LMP 02/14/2024 BMI 21.83 kg/m BMI 21.83 kg/(m^2) See flowsheet for FH, FHR A/P: Rosy Dominique is a 19 year old at 28w3d Previous baby with growth restriction - 28w Growth US tomorrow 09/01 Supervision of high risk in third trimester - OB precautions, FKC reviewed - passed 1 hour gct - Desires Tdap but not today, will also desire RSV vaccine at 32w - third trimester folder provided and reviewed - Plans to exclusively pump- breast pump rx completed - Safe sleep video watched and discussed - Maternal and Infant Nutrition Maternal nutrition: Discussed maternal nutrition, hydration, PNV Denies food insecurity- discussed WIC and [facility] food pantry Infant nutrition: benefits of BF, S2S, rooming in and feeding on cue exclusive BF, proper positioning, assessing a good latch, maintaining supply, signs your baby is getting enough milk concerns at home, support resources Provided handouts: [employer] maternal nutrition CCAG for the Best Feeding booklet RTC 2 weeks for SIVA Anthony Cook APRN.DRAPERY CUTTER MACHINE 08/31/2024 10:52 AM documented in this encounterU[facility] Center10-22-2024 Nurse Note* Hayden Walters LPN - 08/31/2024 9:52 AM EDT Movement? Active baby Vaginal Bleeding: NO Vaginal fluid leakage of fluid: NO Contractions: Ruy-Sotomayor type Edema: Negative Pt presents for SIVA, no questions or concerns at this time. Hayden Walters LPN August 31, 2024 9:53 AM [facility] Nurse Note* Hayden Walters LPN - 08/31/2024 9:52 AM EDT Movement? Active baby Vaginal Bleeding: NO Vaginal fluid leakage of fluid: NO Contractions: Mcclain-Sotomayor type Edema: Negative Pt presents for SIVA, no questions or concerns at this time. Hayden Walters LPN August 31, 2024 9:53 AM documented in this encounterU[facility] Medical Center10-13-2024 NoteHNO ID: [id number] Author: MONTY RIVERA MD Service: Obstetrics Author Type: Resident Type: Progress Notes Filed: 08/22/2024 23:07 Note Text: Prior to discharge, the following Plan of care discussed with: Provider, RN, Patient. Patient still has residual pelvic pain. No further contractions on tocometer. Cervix unchanged. Patient comfortable with return home with return precautions at this time. Discharge Vital signs: .BP 115/72 Pulse 87 Temp 36.8 ?C (98.2 ?F) (Temporal) Resp 20 LMP 02/14/2024 SpO2 100% Lab Results: Urine dip: unremarkable for infection Follow-up: As scheduled 08/31/24 Precautions: labor precautions New or adjusted home medications: has tylenol at home Other recommendations/instructions: n/a Discussed with primary Ob Provider/Group: Dr. Linares, Dr. Derek Rivera, [facility]10-13-2024 NoteHNO ID: [id number] Author: VASHTI REED MD Service: Nursing Author Type: Physician Type: Procedures Filed: 08/22/2024 22:47 Note Text: OBSTETRICS NST SUMMARY SERVICE DATE: August 22, 2024 The patient is a 19 year old female, , who is at 27w1d with an SCOTT of 11/20/2024, by Last Menstrual Period dating method. NST OBJECTIVE FINDINGS PER NURSE: Start Time: 2046 (08/22/242129 : Maryam Daniels RN) Complete Time: 2129 (08/22/242129 : Maryam Daniels RN) Indications: Other: Comment (08/22/242129 : Maryam Daniels RN) Patient Reason For: monitor baby (08/22/242129 : Maryam Daniels RN) NST Explanation: Procedure Explained;Monitor Explained;Verbalizes Understanding (08/22/242129 : Maryam Daniels RN) Acoustic Stimulator: No (08/22/242129 : Maryam Daniels RN) Interventions: Oral Fluids Given (08/22/242129 : Maryam Daniels RN) MONITORING/ASSESSMENT: Baseline: 140 bpm (08/22/242129 : Maryam Daniels RN) Variability: Minimal (detectable but < or equal to 5 bpm) (08/22/242129 : Maryam Daniels RN) Accelerations: Present (08/22/242129 : Maryam Daniels RN) Decelerations: Decelerations: None (08/22/242129 : Maryam Daniels RN) Contractions: Irregular (08/22/242129 : Maryam Daniels RN) Frequency: Above information forwarded to Dr. Reed (08/22/242129 : Maryam Daniels RN) for final review and interpretation. SIGNATURE: Maryam Daniels RN PATIENT NAME: Rosy Dominique DATE: August 22, 2024 TIME: 9:51 PM PROVIDER INTERPRETATION: Reactive by criteria. Irritability and occasional contraction noted. Will proceed with cervical length SIGNATURE: Vashti Reed MD DATE: August 22, 2024 TIME: 10:47 [facility]10-13-2024 NoteHNO ID: [id number] Author: VASHTI REED MD Service: Obstetrics Author Type: Resident Type: Procedures Filed: 08/22/2024 22:48 Note Text: Attestation signed by Vashti Reed MD at 08/22/2024 10:48 PM The resident performed the entire procedure under my direct supervision All three measurements consistent and over 30 mm. No funneling Vashti Reed MD 02/12/20183:45 PM BEDSIDE PROCEDURE NOTE US OB LIMITED (POC) LND USE ONLY Date/Time: 08/22/2024 9:36 PM Performed by: Monty Rivera MD Authorized by: Vashti Reed MD Limited Ultrasound: 2nd/3rd Trimester Indications: Evaluate the cervix Probe used: Endocavitary Ultrasound Findings: Maternal Structures Evaluated: Yes Cervical Length: 3.27cm; 3.30cm; 3.33cmcm Number of Fetuses: One Baby A Presentation: Vertex Heart Rate Measured: No Biophysical Profile Performed: No Conclusions: Additional Findings: Images saved for exam: Yes Images associated with this report can be found under the Get Images tab in [employer]. US Images Show: Appropriate for gestational age Imaging study performed by: Resident/ELIAS with Attending supervision Resident Performing Ultrasound: Dr. Monty Rivera Attending Supervising/Performing Ultrasound: Dr. Vashti Reed SIGNATURE: Monty Rivera MD PATIENT NAME: Rosy Dominique DATE: August 22, 2024 TIME: 9:36 [facility]10-13-2024 NoteHNO ID: [id number] Author: VASHTI REED MD Service: Obstetrics Author Type: Resident Type: Progress Notes Filed: 08/22/2024 22:50 Note Text: Attestation signed by Vashti Reed MD at 08/22/2024 10:50 PM Attending Note I evaluated the patient and personally participated in the can components. I agree with the resident's findings and plan with the following revisions and/or additions: Irritability and occasional contraction. Reassuring CL and exam. Reassess in 2 hours. Po hydration Urinalysis negative Signature: Vashti Reed MD Date: 08/22/2024 Time: 10:49 PM OBSTETRICS OB ED PROGRESS NOTE SERVICE DATE: August 22, 2024 SERVICE TIME: 9:13 PM Subjective CHIEF COMPLAINT: pelvic pain HISTORY OF THE PRESENT ILLNESS: The patient is a 19 year old female, , who is at 27w1d with an SCOTT of 11/20/2024, by Last Menstrual Period dating method. Patient is here complaining of pelvic pain and pressure that has worsened over the past few weeks. She notes pelvic pain and pressure started a few weeks ago, got worse over the past 3 days, and was unbearable today so she presented to the OB ED. States it is 10/10 at times. It is aggravated by movement, walking long distances, and moving her legs. She says it feels like contractions, but states the pain is constant. She has a history of PPROM at 31 weeks followed by delivery for breech presentation. Denies any vaginal bleeding or loss of fluid. Notes regular movement. She denies dysuria, hematuria, constipation, diarrhea. Notes some nausea today but has been able to eat and drink normally. PAST MEDICAL HISTORY Diagnosis Date Brugada syndrome Chronic daily headache Complication of anesthesia Diabetes, gestational POTS (postural orthostatic tachycardia syndrome) Seizure (HCC) Thyroid disease Trauma PAST SURGICAL HISTORY Procedure Laterality Date DELIVERY ONLY 06/14/2022 L'SCOPE DX W/WO BRUSHINGS/WASHINGS 03/17/2024 [place] to r/o ectopic MASTOTOMY W/EXPLORATION/DRAINAGE ABSCESS DEEP Right 08/18/2022 OB History T0 L1 SAB5 IAB1 Ectopic0 Multiple0 Live Births1 REVIEW OF SYSTEMS: The remainder of the review of systems is negative. Objective LAST VITALS: Pulse: 87 BP: 115/72 Resp: 20 Temp: 36.8 ?C (98.2 ?F) SpO2: 100 % SENSITIVE EXAMINATION CONSENT: The sensitive examination was discussed with the Patient or Patient's Authorized Electronic Tester. As applicable, any other physician, advance practice provider, medical student, or other health professional student that will be observing or involved in the sensitive examination for educational or training purposes was discussed with the Patient or Authorized Electronic Tester. The Patient or Authorized Electronic Tester has agreed to proceed with the sensitive examination. (Sensitive examination includes inspection and/or palpation of the breasts, pelvis, prostate and anorectal regions) PHYSICAL EXAM: General: WD, WN, NAD, comfortable Heart: RR, S1, S2, no franki, rub, or murmur appreciated Lungs: clear to auscultation and normal respiratory effort on room air Abdomen: soft, gravid uterus, non-tender to deep palpation in all quadrants, mild pain to lateral manipulation of abdomen Extremities: no edema SSE: vulva normal, vaginal epithelium normal, cervix slightly vascular in appearance, visually 0.5cm dilated externally, small amount of normal vaginal discharge in vaginal vault CERVICAL EXAM: Dilation: Closed (08/22/242 : Monty Rivera MD) MONITORING/ASSESSMENT: FHR: 140bpm, moderate variability, accelerations 10x10 (appropriate for gestational age) [place]: isolated contraction, uterine irritability noted Ultrasound: Cervical length 3.27cm (3.33cm. 3.30cm) LABS Diagnostic tests reviewed for today's visit: Most recent labs and imaging results. 19 year old at 27w1d with pelvic pressure affecting . Assessment AND Plan 27 weeks gestation of - Regular FM, no vaginal bleeding or loss of fluid - NST reactive, appropriate for gestational age Pelvic pain affecting - Worsening over the past few weeks, states it feels like contractions but is constant - VS wnl - [place] with few contractions, some irritability - Cervix closed on exam - CL 3.27cm - gonorrhea, chlamydia, trichomonas swabs sent, urine dip pending - Tylenol administered, declined Flexeril - Plan to PO hydrate, recheck cervix at 2hr from initial check - Likely musculoskeletal pain, less likely labor given normal cervical length or UTI given lack of symptoms Plan of care discussed with: Provider, RN, Patient and Dr. Linares, Dr. Reed . SIGNATURE: Monty Rivera MD PATIENT NAME: Rosy Dominique DATE: Oc (more content not included)...[facility]10-08-2024 Progress note* Quick Notes - Anthony Cook APRN.DRAPERY CUTTER MACHINE - 08/17/2024 12:08 PM EDT S: She is doing well. Denies obstetric concerns or complaints. Endorses active movement. She reports intermittent cramping. She also has concern for leaking of fluid as she sat up in bed the other day and felt a small gush of fluid. No of since then. She also had an episode of vaginal spotting on Friday spotting with wiping. O: BP 105/72 Pulse 101 Wt 64.4 kg (142 lb) LMP 02/14/2024 BMI 20.97 kg/m BMI 20.97 kg/(m^2) The sensitive examination was discussed with the Patient or Patient's Authorized Electronic Tester. Asapplicable, any other physician, advance practice provider, medical student, or other health professional student that will be observing or involved in the sensitive examination for educational or training purposes was discussed with the Patient or Authorized Electronic Tester. The Patient or Authorized Electronic Tester has agreed to proceed with the sensitive examination. Nurse accounts payable administrator present (Sensitive examination includes inspection and/or palpation of the breasts, pelvis, prostate and anorectal regions) SSE: cervix closed and thick, no pooling or blood noted. Normal physiologic discharge Wet Prep: negative for clue cells with amine odor, trichomonas, pseudohyphae and buds, buds, lactobacilli, and QC Acceptable Ferning negative See flowsheet for FH, FHR A/P: Rosy Dominique is a 19 year old at 26w3d History of delivery, currently - Completed CL screening 07/30- all wnl Abdominal pain affecting - reports cramping on and off throughout the day, same as has been this and worse with movement - ABD non-tender on exam - SSE cervix closed and thick no pooling - UA dip negative - PTL precautions reviewed Vaginal bleeding in , second trimester - reports intermittent episodes of spotting - On exam, no blood in vagina and no active bleeding from cervix - Precautions reviewed Encounter for suspected premature rupture of amniotic membranes, with rupture of membranes not found - Concern for ROM when she sat up in bed she felt a gush of fluid - No leaking of fluid since, not wearing a pad - Ferning negative and Nitrazine negative today - SSE cervix closed and thick no pooling - Precautions reviewed growth restriction antepartum - Growth US 07/15/24 21w 5d AC 59%, EFW 33% - Growth US 28w ordered and scheduled Encounter for supervision of high risk young multigravida, antepartum - OB precautions reviewed - 24-28w labs today RTC 2 weeks for SIVA or sooner as needed Anthony Cook APRN.CNP 08/17/2024 12:08 PM [facility]10-08-2024 Miscellaneous Notes* Quick Notes - Anthony Cook APRN.CNP - 08/17/2024 12:08 PM EDT S: She is doing well. Denies obstetric concerns or complaints. Endorses active movement. She reports intermittent cramping. She also has concern for leaking of fluid as she sat up in bed the other day and felt a small gush of fluid. No of since then. She also had an episode of vaginal spotting on Friday spotting with wiping. O: BP 105/72 Pulse 101 Wt 64.4 kg (142 lb) LMP 02/14/2024 BMI 20.97 kg/m BMI 20.97 kg/(m^2) The sensitive examination was discussed with the Patient or Patient's Authorized Electronic Tester. Asapplicable, any other physician, advance practice provider, medical student, or other health professional student that will be observing or involved in the sensitive examination for educational or training purposes was discussed with the Patient or Authorized Electronic Tester. The Patient or Authorized Electronic Tester has agreed to proceed with the sensitive examination. Nurse accounts payable administrator present (Sensitive examination includes inspection and/or palpation of the breasts, pelvis, prostate and anorectal regions) SSE: cervix closed and thick, no pooling or blood noted. Normal physiologic discharge Wet Prep: negative for clue cells with amine odor, trichomonas, pseudohyphae and buds, buds, lactobacilli, and QC Acceptable Ferning negative See flowsheet for FH, FHR A/P: Rosy Dominique is a 19 year old at 26w3d History of delivery, currently - Completed CL screening 07/30- all wnl Abdominal pain affecting - reports cramping on and off throughout the day, same as has been this and worse with movement - ABD non-tender on exam - SSE cervix closed and thick no pooling - UA dip negative - PTL precautions reviewed Vaginal bleeding in , second trimester - reports intermittent episodes of spotting - On exam, no blood in vagina and no active bleeding from cervix - Precautions reviewed Encounter for suspected premature rupture of amniotic membranes, with rupture of membranes not found - Concern for ROM when she sat up in bed she felt a gush of fluid - No leaking of fluid since, not wearing a pad - Ferning negative and Nitrazine negative today - SSE cervix closed and thick no pooling - Precautions reviewed growth restriction antepartum - Growth US 07/15/24 21w 5d AC 59%, EFW 33% - Growth US 28w ordered and scheduled Encounter for supervision of high risk young multigravida, antepartum - OB precautions reviewed - 24-28w labs today RTC 2 weeks for SIVA or sooner as needed Anthony Cook, OVERHEAD CRANE INSPECTOR.DRAPERY CUTTER MACHINE 08/17/2024 12:08 PM [facility] Nurse Note* Arpit Arteaga MA - 08/17/2024 10:12 AM EDT Movement? Active baby Vaginal Bleeding: NA Vaginal fluid leakage of fluid: NA Contractions: regular contractions every 10 minutes Edema: Negative Pt states that she been having some spotting for a couple weeks, been having fluid leaking. Arpit Arteaga MA [facility]10-08-2024 Nurse Note* Arpit Arteaga MA - 08/17/2024 10:12 AM EDT Movement? Active baby Vaginal Bleeding: NA Vaginal fluid leakage of fluid: NA Contractions: regular contractions every 10 minutes Edema: Negative Pt states that she been having some spotting for a couple weeks, been having fluid leaking. Arpit Arteaga MA documented in this encounterU[facility] Center09-18-2024 NoteHNO ID: [id number] Author: PANKAJ SMITH MD Service: Obstetrics Author Type: Resident Type: Progress Notes Filed: 08/02/2024 22:55 Note Text: Attestation signed by Pankaj Smith MD at 08/02/2024 10:55 PM Attending Note I personally saw and examined the patient. I reviewed the resident's note. I agree with the resident's assessment and plan unless otherwise noted. Signature: Pankaj Smith MD Date: 08/02/2024 Time: 10:55 PM OBSTETRICS OB ED PROGRESS NOTE SERVICE DATE: July 28, 2024 SERVICE TIME: 11:37 PM Subjective Patient's stated reason for arrival: pain, no movement CHIEF COMPLAINT: Decreased movement and lower abdominal pain HISTORY OF THE PRESENT ILLNESS: The patient is a 19 year old female, , who is at 23w5d with an SCOTT of 11/20/2024, by formal ultrasound. Patient is here complaining of decreased movement and ongoing lower abdominal pain. Today in the OB ED patient expresses that she noticed decreased movement since around 10 am this morning. Patient states normally her baby is very active, but since this morning her baby has had little to no movement according to her. However, since arriving in the [place] and hearing doptones, she has started to feel more movement. Patient also endorses a small amount of vaginal spotting two days ago that has since resolved. She denies any recent intercourse or concerns for sexually transmitted infections. Denies contractions., Denies leaking of fluid. Denies dysuria or hematuria. The patient states that she has had intermittent lower abdominal cramping for the last 4 weeks. She states that it is at her baseline at this time and she has been worked up for it several times. She states that it does not feel like contractions. PAST MEDICAL HISTORY Diagnosis Date Brugada syndrome Chronic daily headache Complication of anesthesia Diabetes, gestational POTS (postural orthostatic tachycardia syndrome) Seizure (HCC) Thyroid disease Trauma PAST SURGICAL HISTORY Procedure Laterality Date DELIVERY ONLY 06/14/2022 L'SCOPE DX W/WO BRUSHINGS/WASHINGS 03/17/2024 Catarino julien r/o ectopic MASTOTOMY W/EXPLORATION/DRAINAGE ABSCESS DEEP Right 08/18/2022 FAMILY HISTORY Problem Relation Age of Onset None Mother None Father Diabetes Paternal Grandfather OB History T0 L1 SAB5 IAB1 Ectopic0 Multiple0 Live Births1 REVIEW OF SYSTEMS: GENERAL: No weight loss, malaise or fevers. HEENT: Negative for frequent or significant headaches, No changes in hearing or vision, no nose bleeds or other nasal problems RESPIRATORY: Negative for cough, hemoptysis, wheezing, COPD, dyspnea or shortness of breath CARDIOVASCULAR: Negative for chest pain, leg swelling, hypertension, CHF or palpitations : No history of dysuria, frequency or incontinence GLASS ENGRAVER: Negative for abnormal vaginal bleeding, abnormal vaginal discharge, and breast symptoms or Positive for vaginal bleeding Objective LAST VITALS: BP: 93/61 Resp: 17 Temp: 36.8 ?C (98.2 ?F) SpO2: 97 % Height: 175.3 cm (5' 9) Weight: 62.6 kg (138 lb) BMI: 20.38 PHYSICAL EXAM: Heart: RR, no franki, rub, or murmur appreciated Lungs: Clear to auscultation bilaterally Abdomen: Soft, no masses, mildly tender in suprapubic region, fundus appreciated around umbilicus Extremities: no edema SSE: normal atraumatic vaginal epithelium, no blood noted in vaginal vault, small amount of physiologic white discharge present, cervix visually closed MONITORING/ASSESSMENT: heart rate present and appropriate 19 year old EGA:23w5d. Presenting to the [facility] for decreased movement. Assessment AND Plan Decreased movements in second trimester - Patient states she has felt less movement than normal throughout the day today - doptones present and appropriate - Patient felt more movement while in [facility] - Provided reassurance to patient about movement, discussed recommendations for kick count precautions not to begin prior to 28 weeks - Patient has ultrasound scheduled at [facility] for this Monday 07/30 - Appropriate for discharge home at this time - Strict return precautions given Abdominal pain affecting - Patient reporting 4 weeks of lower abdominal cramping, states it is currently at her baseline and she does not desire intervention - Discussed cramping likely related to musculoskeletal pain of - Encouraged use of heating pads at home Vaginal bleeding in , second trimester - Patient with single of episode of vaginal bleeding two days ago, has since resolved - No vaginal bleeding noted on SSE - Denies dysuria or hematuria, no recent intercourse - Counseled p (more content not included)...[facility] 07-21-2024 Progress note* Quick Notes - Priti Montiel DO - 07/21/2024 10:23 AM EDT S: Patient is doing well overall. [place] any leakage of fluid, vaginal bleeding. Endorses good fetalmovement. Patient had growth ultrasound last week. Patient went to [facility] in [place] last week for some cramping. All labs came back normal. States she still feels some mild lower back pain. O: BP 91/60 Pulse 95 Wt 62.6 kg (138 lb) LMP 02/14/2024 BMI 20.38 kg/m BMI 20.38 kg/(m^2) See flowsheet for FH, FHR PHYSICAL EXAM: General: NAD Heart: RR, warm and well perfused Lungs: normal pulmonary exam Extremities: No calf tenderness and No edema A/P: Rosy Dominique is a 18 year old at 22w4d Assessment & Plan Encounter for supervision of high risk young multigravida, antepartum - RTC in 4 weeks, - RPR, CBC, 1 hr GCT at next SIVA Seizure (HCC) - Denies any symptoms Abdominal cramping - FHT normal - Vitals normal - Urine dip normal - Cramping likely secondary to round ligament pain of - Discussed return precautions, patient voiced understanding History of delivery, currently - Patient with prior delivery with PPROM and IUGR at 31 weeks - Growth ultrasound at 21w5d shows no evidence of FGR, normal fluid volume, and good cervical length without funneling. - Scheduled repeat cervical length ultrasound in 2 weeks Hx of impaired glucose tolerance - 1 hour Glucola at next ISVA growth restriction antepartum - Patient with history of severe FGR with subsequent PPROM at 31 weeks - Normal cervical length on ultrasound on 07/15 - Repeat growth ultrasound ordered and scheduled in 2 weeks Priti Montiel DO 07/21/2024 10:38 AM Attending Note I personally saw and examined the patient. I reviewed the resident's note. I agree with the resident's assessment and plan unless otherwise noted. Signature: Jasper Spivey MD Date: 07/21/2024 Time: 11:04 AM [facility]09-11-[facility] Miscellaneous Notes* Quick Notes - Priti Montiel DO - 07/21/2024 10:23 AM EDT S: Patient is doing well overall. [place] any leakage of fluid, vaginal bleeding. Endorses good fetalmovement. Patient had growth ultrasound last week. Patient went to [facility] in [place] last week for some cramping. All labs came back normal. States she still feels some mild lower back pain. O: BP 91/60 Pulse 95 Wt 62.6 kg (138 lb) LMP 02/14/2024 BMI 20.38 kg/m BMI 20.38 kg/(m^2) See flowsheet for FH, FHR PHYSICAL EXAM: General: NAD Heart: RR, warm and well perfused Lungs: normal pulmonary exam Extremities: No calf tenderness and No edema A/P: Rosy Dominique is a 18 year old at 22w4d Assessment & Plan Encounter for supervision of high risk young multigravida, antepartum - RTC in 4 weeks, - RPR, CBC, 1 hr GCT at next SIVA Seizure (HCC) - Denies any symptoms Abdominal cramping - FHT normal - Vitals normal - Urine dip normal - Cramping likely secondary to round ligament pain of - Discussed return precautions, patient voiced understanding History of delivery, currently - Patient with prior delivery with PPROM and IUGR at 31 weeks - Growth ultrasound at 21w5d shows no evidence of FGR, normal fluid volume, and good cervical length without funneling. - Scheduled repeat cervical length ultrasound in 2 weeks Hx of impaired glucose tolerance - 1 hour Glucola at next SIVA growth restriction antepartum - Patient with history of severe FGR with subsequent PPROM at 31 weeks - Normal cervical length on ultrasound on 07/15 - Repeat growth ultrasound ordered and scheduled in 2 weeks Priti Montiel DO 07/21/2024 10:38 AM Attending Note I personally saw and examined the patient. I reviewed the resident's note. I agree with the resident's assessment and plan unless otherwise noted. Signature: Jasper Spivey MD Date: 07/21/2024 Time: 11:04 AM documented in this encounterU[facility] Center09-11-[facility]24 Nurse Note* Arpit Arteaga MA - 07/21/2024 9:39 AM EDT Movement? Active baby Vaginal Bleeding: NO Vaginal fluid leakage of fluid: NO Contractions: Mcclain-Sotomayor type Edema: Negative Pt states that she been having pain in her lower back and her lower abdomen for a 1.5 week it feelslike a period cramp. Arpit Arteaga MA [facility]09-11-[facility] Nurse Note* Arpit Arteaga MA - 07/21/2024 9:39 AM EDT Movement? Active baby Vaginal Bleeding: NO Vaginal fluid leakage of fluid: NO Contractions: Mcclain-Sotomayor type Edema: Negative Pt states that she been having pain in her lower back and her lower abdomen for a 1.5 week it feelslike a period cramp. Arpit Arteaga MA documented in this encounterU[facility] Center09-07-2024 Telephone encounter Note * Telephone Encounter - Rj Linares MD - 07/17/2024 7:24 PM EDT Images from the original note were not included. Patient called after-hours line asking for allergy medication safe in . Typically takes benadryl, claritin, or zyrtec. Discussed these are all safe. Can also take cold medication, however instructed to avoid, decongestants or medications labeled DM or PM. No further questions. Rj Linares MD [facility] Work Phone: [phone] Miscellaneous Notes* Telephone Encounter - Rj Linares MD - 07/17/2024 7:24 PM EDT Images from the original note were not included. Patient called after-hours line asking for allergy medication safe in . Typically takes benadryl, claritin, or zyrtec. Discussed these are all safe. Can also take cold medication, however instructed to avoid, decongestants or medications labeled DM or PM. No further questions. Rj Linares MD documented in this encounterU[facility] Center09-06-2024 Telephone encounter Note * Telephone Encounter - Fe Payan RN - 07/16/2024 3:00 PM EDT Patient called in to check on the results of a UA that was done on 07/14/24 at [facility] in [place]. The results are available and patient would like to know what they are. She states thatshe was supposed to be Mycharted with them, she is currently active. [facility] Miscellaneous Notes* Telephone Encounter - Fe Payan RN - 07/16/2024 3:00 PM EDT Patient called in to check on the results of a UA that was done on 07/14/24 at [facility] in [place]. The results are available and patient would like to know what they are. She states thatshe was supposed to be Mycharted with them, she is currently active. documented in this encounterUc Medical Center09-05-2024 Note Indication Evaluation of growth. History of delivery. History of section. Seizures. 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 - Single, live, intrauterine . - The biometry is consistent with the assigned gestational dating. - The EFW is 429 g, at the 33%. AC is at the 59%. - Amniotic fluid volume is normal amount with an MVP of 3.5 cm and ISAÍAS of 12.1 cm. - The placenta is anterior. - The Transvaginal cervical length measures 38.4 mm with no evidence of funneling or other dynamic changes. - No malformations visualized on a limited survey as detailed below. The patient was informed of the sonographic findings. Repeat sonographic assessment is recommended in 2 weeks for cervical length screening. Thank you for the referral. Recommendations As above Maternal Assessment Height 175 cm Height (ft) 5 ft Height (in) 9 in Physical Exam Initial weight (lb) 120 lb Initial BMI 17.72 kg/m Method Transabdominal and transvaginal ultrasound examination Ruffin . Number of fetuses: 1 Dating GA by prior assessment 21 w + 5 d SCOTT by prior assessment: 11/20/2024 Ultrasound examination on: 07/15/2024 GA by U/S based upon: AC, BPD, Femur, HC GA by U/S 21 w + 1 d SCOTT by U/S: 11/24/2024 Assigned: based on stated SCOTT, selected on 05/11/2024 Assigned GA 21 w + 5 d Assigned SCOTT: 11/20/2024 General Evaluation Cardiac activity present. FHR 149 bpm. movements: present. Presentation: breech Placenta: Placental site: anterior Umbilical cord: Cord vessels: 3 vessel cord Amniotic fluid: Amount of AF: normal amount. MVP 3.5 cm. ISAÍAS 12.1 cm. Q1 3.5 cm, Q2 3.4 cm, Q3 3.1 cm, Q4 2.2 cm Growth Overview Exam date GA BPD (mm) HC (mm) AC (mm) FL (mm) HL (mm) EFW (g) 06/24/2024 18w 5d 41 38% 149.1 25% 125.3 27% 24.1 11% 25.4 24% 209 7% 07/15/2024 21w 5d 48.7 14% 184.4 24% 172.6 59% 34.6 38% 429 33% Biometry Standard BPD 48.7 mm 20w 5d 14% Hadlock OFD 66.0 mm 20w 6d 32% Nicolaides HC 184.4 mm 20w 5d 24% Garrett AC 172.6 mm 22w 1d 59% Hadlock Femur 34.6 mm 21w 1d 38% Garrett EFW 429 g 21w 3d 33% Hadlock EFW (lb) 0 lb EFW (oz) 15 oz EFW by: Hadlock ([id number]) Extended [employer] Associate 3.6 mm Extremities / Bony Struc FL / HC 0.19 Other Structures FHR 149 bpm Anatomy Cranium: normal Lateral ventricles: normal Cavum septi pellucidi: normal Cerebellum: normal Cisterna magna: normal Lips: normal Profile: normal Nose: normal 4-chamber view: normal RVOT view: normal LVOT view: normal 3-vessel view: normal Heart / Thorax Situs: situs solitus (normal) Diaphragm: normal Stomach: normal Kidneys: normal Bladder: normal Wants to know sex: yes Maternal Structures Uterus / Cervix Approach: Transvaginal Cervical length 38.4 mm Cervical length (2) 39.8 mm Funneling: Funneling absent Cerclage: Cervical cerclage absent Cervical length with fundal pressure 38.1 mm Performed By: Sherlyn Burnett Read By: Matthias Gonzalez M.D.MATERNAL [id number] NoteHNO ID: [id number] Author: TESFAYE CONNELL MD Service: ? Author Type: Physician Type: Progress Notes Filed: 07/11/2024 15:38 Note Text: Patient presents with: left big toe pain: Kicked a dresser 2 days ago HPI: Kicked a dresser with her left great toe 2 days ago. 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 She has pus draining from the toe. There is pain with moving the toe or walking that radiates up into the proximal foot. She is applying antibiotic cream. Currently . MEDICATIONS: gabapentin (NEURONTIN) 300 mg capsule Take 1 capsule by mouth three times a day for 90 days. (Patient taking differently: Take 300 mg by mouth as needed.) cyclobenzaprine (FLEXERIL) 10 mg tablet Take 0.5 tablets by mouth two times a day as needed. blood sugar diagnostic test strip Use as directed to check glucose levels up to seven times daily. Lancets Use as directed to check glucose levels up to seven times daily. alcohol swabs (ALCOHOL PREP PADS) Use as directed to check glucose levels up to seven times daily. vit calc,iron,folic (PRENAT.VITS,ANISH,[id number] ORAL) Take by mouth once daily. ALLERGIES: ALLERGIES Allergen Reactions Amoxicillin Rash, GI Upset, Unknown Anesthetics - Amide* Other: See Comments Bupivacaine Shortness of Breath Chloroprocaine Shortness of Breath Coconut Anaphylaxis, Unknown Dexamethasone Itching Hydrocodone Itching, Unknown Latex Other: See Comments, Unknown Lidocaine Shortness of Breath Onion Extract Other: See Comments Vancomycin Rash, Other: See Comments Vicodin [Hydrocodon* Rash VITALS: BP 98/62 Pulse 83 Temp 37.1 ?C (98.8 ?F) (Tympanic) Resp 18 Wt 61.2 kg (134 lb 14.7 oz) LMP 02/14/2024 SpO2 98% BMI 19.92 kg/m? PE: Pleasant, in no acute distress. TOE: left great. Mild erythema along the proximal and lateral nail borders. There is granulation in the lateral nail fold. The toe is painful to move and tender to palpation along the nail. Kyrgyz prevents further inspection of the nail bed. ASSESSMENT/PLAN: 1. Great toe pain, left - ICD9: 729.5, ICD10: M79.675 Probably toe contusion and partial nail avulsion. Possibly pre-existing paronychia though she was not aware of any pre-injury infection. - MUPIROCIN 2 % TOPICAL OINTMENT She is leaving to go out of state tomorrow and has significant pain with ambulation. She plans to go to the ER now where xray is available to rule out 1st toe fracture. Tesfaye Connell Pomerene [facility] History of Present illness Narrative* Tesfaye Connell MD - 07/11/2024 3:22 PM EDT Patient presents with: left big toe pain: Kicked a dresser 2 days ago HPI: Kicked a dresser with her left great toe 2 days ago. 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 She has pus draining from the toe. There is pain with moving the toe or walking that radiates up into the proximal foot. She is applying antibiotic cream. Currently . MEDICATIONS: gabapentin (NEURONTIN) 300 mg capsule Take 1 capsule by mouth three times a day for 90 days. (Patient taking differently: Take 300 mg by mouth as needed.) cyclobenzaprine (FLEXERIL) 10 mg tablet Take 0.5 tablets by mouth two times a day as needed. blood sugar diagnostic test strip Use as directed to check glucose levels up to seven times daily. Lancets Use as directed to check glucose levels up to seven times daily. alcohol swabs (ALCOHOL PREP PADS) Use as directed to check glucose levels up to seven times daily. vit calc,iron,folic (PRENAT.VITS,ANISH,TFZ-[id number] ORAL) Take by mouth once daily. ALLERGIES: ALLERGIES Allergen Reactions Amoxicillin Rash, GI Upset, Unknown Anesthetics - Amide* Other: See Comments Bupivacaine Shortness of Breath Chloroprocaine Shortness of Breath Coconut Anaphylaxis, Unknown Dexamethasone Itching Hydrocodone Itching, Unknown Latex Other: See Comments, Unknown Lidocaine Shortness of Breath Onion Extract Other: See Comments Vancomycin Rash, Other: See Comments Vicodin [Hydrocodon* Rash VITALS: BP 98/62 Pulse 83 Temp 37.1 C (98.8 F) (Tympanic) Resp 18 Wt 61.2 kg (134 lb 14.7 oz) LMP02/14/2024 SpO2 98% BMI 19.92 kg/m PE: Pleasant, in no acute distress. TOE: left great. Mild erythema along the proximal and lateral nail borders. There is granulation inthe lateral nail fold. The toe is painful to move and tender to palpation along the nail. Kyrgyz prevents further inspection of the nail bed. ASSESSMENT/PLAN: 1. Great toe pain, left - ICD9: 729.5, ICD10: M79.675 Probably toe contusion and partial nail avulsion. Possibly pre-existing paronychia though she was not aware of any pre-injury infection. - MUPIROCIN 2 % TOPICAL OINTMENT She is leaving to go out of state tomorrow and has significant pain with ambulation. She plans to go to the ER now where xray is available to rule out 1st toe fracture. Tesfaye Connell MD [facility] NoteHNO ID: [id number] Author: TESFAYE SMITH MD Service: Obstetrics Author Type: Resident Type: Progress Notes Filed: 09/06/2024 09:19 Note Text: Attestation signed by Tesfaye Smith MD at 09/06/2024 9:19 AM I saw and evaluated the patient. Discussed with the resident and agree with resident's findings and plan as documented in the resident's note. 18 year old female, who is at 19w6d with an SCOTT of 11/20/2024, by Last Menstrual Period dating method. has been confirmed by ultrasound. Patient complaining of abdominal pain. Delayed entry - I personally saw/examined the patient on July 01, 2024 Tesfaye Smith MD OBSTETRICS OB ED PROGRESS NOTE SERVICE DATE: July 01, 2024 SERVICE TIME: 9:00 PM Subjective Patient's stated reason for arrival: Abdominal cramping CHIEF COMPLAINT: Abdominal pain HISTORY OF THE PRESENT ILLNESS: The patient is a 18 year old female, who is at 19w6d with an SCOTT of 11/20/2024, by Last Menstrual Period dating method. has been confirmed by ultrasound. Patient complaining of abdominal pain. Patient reports that she developed abdominal cramping earlier today. States that cramping is intermittent in lower abdomen and in vagina. Denies vaginal bleeding. Reports concern for liquidy vaginal discharge. Denies dysuria or increased urinary frequency. Patient follows with [facility] for due to history of PPROM at 31 weeks and FGR. She undergoes cervical length screening. PAST MEDICAL HISTORY No date: Brugada syndrome No date: Chronic daily headache No date: Complication of anesthesia No date: Diabetes, gestational No date: POTS (postural orthostatic tachycardia syndrome) No date: Seizure (HCC) No date: Thyroid disease No date: Trauma PAST SURGICAL HISTORY 06/14/2022: DELIVERY ONLY 03/17/2024: L'SCOPE DX W/WO BRUSHINGS/WASHINGS Comment: Catarino to r/o ectopic 08/18/2022: MASTOTOMY W/EXPLORATION/DRAINAGE ABSCESS DEEP; Right FAMILY HISTORY Problem Relation Age of Onset None Mother None Father Diabetes Paternal Grandfather OB History T0 L1 SAB5 IAB1 Ectopic0 Multiple0 Live Births1 REVIEW OF SYSTEMS: GENERAL: Negative for weight loss, chills, or fevers RESPIRATORY: Negative for cough, dyspnea, or shortness of breath CARDIOVASCULAR: Negative for chest pain ABD: Positive for abdominal pain GI: Negative for nausea, vomiting, or diarrhea : Negative for dysuria or urinary frequency GLASS ENGRAVER: Negative for abnormal vaginal bleeding, abnormal vaginal discharge Objective LAST VITALS: Pulse: 72 BP: 101/72 Resp: 18 Temp: 36.8 ?C (98.2 ?F) SpO2: 98 % PHYSICAL EXAM: General: No acute distres Heart: Regular rate Lungs: Unlabored breathing on room air Abdomen: Nontender, soft, no guarding Pelvic: External genitalia grossly normal in appearance without lesions. Vaginal mucosa with well estrogenized rugae without lesion. Cervix grossly normal in appearance without lesion, appears closed. Physiologic discharge, nonmalodorous. ASSESSMENT: heart rate present: Mode: Doppler (07/01/242035 : Tre Shepherd, SCOTT) Doppler/Fetoscope Rate: 152 bpm (07/01/242035 : Tre Shepherd, RN) LABS ABO/RH: No results found for: ABORHD HCG QT: Diagnostic tests reviewed for today's visit: Most recent labs and imaging results. Urine dip negative 18 year old EGA:19w6d presenting for abdominal cramping. Active Hospital Problems Diagnosis Date Noted Abdominal cramping 07/01/2024 Overview Note: - Patient with abdominal cramping in - FHT normal - Vitals normal - Pelvic exam without concerns - Urine dip normal - Cramping likely secondary to round ligament pain of - Discussed return precautions, patient voiced understanding Plan of care discussed with: Provider, RN, Patient, Dr. Smith OB ED attending. SIGNATURE: Derick Lebron MD PATIENT NAME: Rosy Dominique DATE: July 02, 2024 TIME: 2:57 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 She has had electrocardiographic studies which have revealed a right bundle branch block but otherwise have not been confirmatory for Brugada syndrome. She wore a Holter monitor in 2022 which was negative. She does not have a family history significant for any other family members with sudden cardiac or other congenital heart disease. She has also been diagnosed with POTS disease but not evidence of prior tilt table testing. She was trialed once before on fludrocortisone which worsened her symptoms so was discontinued. She manages her symptoms nonpharmacologically at this time with hydration, avoiding sudden position changes and use of compression stockings with periods of prolonged standing. Today, she reports that she has continued to experience presyncopal events that are mostly triggered by sudden position changes such as taking the elevator. She does report that she has felt more lightheaded and presyncopal in recent weeks during this and also notes dyspnea with activity. HISTORY REVIEW PAST MEDICAL HISTORY No date: Brugada syndrome No date: Chronic daily headache No date: Complication of anesthesia No date: Diabetes, gestational No date: POTS (postural orthostatic tachycardia syndrome) No date: Seizure (HCC) No date: Thyroid disease No date: Trauma PAST SURGICAL HISTORY 06/14/2022: DELIVERY ONLY 03/17/2024: L'SCOPE DX W/WO BRUSHINGS/WASHINGS Comment: Catarino to r/o ectopic 08/18/2022: MASTOTOMY W/EXPLORATION/DRAINAGE ABSCESS DEEP; Right FAMILY HISTORY Problem Relation Age of Onset None Mother None Father Diabetes Paternal Grandfather Social History Tobacco Use Smoking status: Never Passive exposure: Yes Smokeless tobacco: Never Tobacco comments: vape Vaping Use Vaping status: Former Substances: Nicotine Substance Use Topics Alcohol use: No Drug use: Never Obstetric History T0 L1 SAB5 IAB1 Ectopic0 Multiple0 Live Births1 Name of Baby 1: Not recorded Date: Not recorded GA: Not recorded Type: Not recorded Apgar1: Not recorded Apgar5: Not recorded Living: Not recorded Name of Baby 2: Not recorded Date: Not recorded GA: Not recorded Type: Not recorded Apgar1: Not recorded Apgar5: Not recorded Living: Not recorded Name of Baby 3: Not recorded Date: Not recorded GA: Not recorded Type: Not recorded Apgar1: Not recorded Apgar5: Not recorded Living: Not recorded Name of Baby 4: Not recorded Date: 08/19/19 GA: Not recorded Type: INDUCED Apgar1: Not recorded Apgar5: Not recorded Living: Not recorded Name of Baby 5: Alice Date: 06/14/22 GA: 31w0d Type: , Unspecified Apgar1: Not recorded Apgar5: Not recorded Living: Living Name of Baby 6: Not recorded Date: 11/03/22 GA: Not recorded Type: MISSED AB Apgar1: Not recorded Apgar5: Not recorded Living: Not recorded Name of Baby 7: Not recorded Date: 01/18/24 GA: Not recorded Type: Not recorded Apgar1: Not recorded Apgar5: Not recorded Living: Not recorded Name of Baby 8: Not recorded Date: Not recorded GA: Not recorded Type: Not recorded Apgar1: Not recorded Apgar5: Not recorded Living: Not recorded Active Non-Hospital Problems Diagnosis Date Noted growth restriction antepartum 06/24/2024 Overview Note: - Patient diagnosed with FGR based on EFW 7%ile at 18w5d, normal dopplers - Patient thoroughly counseled by MFM - Patient with history of severe FGR and toxoplasmosis with subsequent PPROM at 31 weeks - Normal cervical length on ultrasound - Per chart review, no evidence of toxoplasmosis, patient tested negative in June 2022 at time ofdelivery - Repeat growth ultrasound ordered in 3 weeks POTS (postural orthostatic tachycardia syndrome) 06/24/2024 Hx of impaired glucose tolerance 05/26/2024 Overview Note: - Patient states she has T1DM, has never been on insulin - No documentation in chart of diagnosis/criteria - A1C 4.9 (04/08/24) - For normal glucose tolerance testing at 28 weeks Headache in , second trimester 05/24/2024 Overview Note: - Patient reports chronic migraines, typically improve with Tylenol Abdominal pain during in first trimester 04/15/2024 Overview Note: - Patient reports contraction-like lower abdominal pain that is recurring every 2-5 minutes. - asymptomatic - Vitals WNL - Abdominal exam: non-tender to palpation in all four quadrants, - SVE: cervix closed - doptones 145 bpm. - Patient not likely in labor. - declines Tylenol - return precautions provided [facility] Referred 04/08/2024 Overview Note: Referral received. Local [facility] team will reach out for scheduling around 30 weeks. Encounter for supervision of high risk young multigravida, antepartum 04/07/2024 Overview Note: Care Checklist Vaccines: [] Flu vaccine [] declined [] RSV vaccine 32 0/7 - 36 6/7 (Jul - Dec) [] declined [] COVID vaccine [] declined [] TDaP 27-36 [] declined First trimester: [x] Dating US [x] 1st tri labs-ordered [] Pap smear- N/A [] Carrier screening- Reports previous screen. No visible [] declined [x] NIPT screening [] declined [] First trimester anatomy scan [x] Not indicated [x] universal ASA ordered (start 12w-16w) [] declined [x] [facility] Consult [] not indicated [] declined Second trimester: [] AFP [x] declined [x] Anatomy scan - FGR diagnosed by EFW 7% at 18w, follow up growth at 21w scheduled [] Mode of Delivery - [] Feeding - [] Pump ordered [] Diabetes screen [] CBC, RPR Third trimester (28-30 weeks): [] Consent [] Contraception - [] Digester Capper Third trimester (36-40 weeks): [] GBS [] Presentation - [] Scheduled [] yes - Hibiclens, pre-op instructions, CBC, T&S ordered [] no [] H&P History of delivery, currently 04/07/2024 Overview Note: - Patient with prior delivery with PPROM and IUGR at 31 weeks - Patient states previous FGR was due to toxoplasmosis - Per chart review, patient tested negative for toxoplasmosis at that time - Per Dr Hassan, presence/absence of toxoplasmosis does not affect management - Plan for serial cervical lengths at 16 weeks History of 04/07/2024 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 Vasovagal syncope. 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 Needs intermittent evaluation for development of cardiomyopathy. Nontoxic single thyroid nodule 04/07/2024 Overview Note: - Thyroid nodule noted in patient chart, but no documentation of imaging or how thyroid nodule was discovered - Patient states a provider felt a lump in her throat and that was the diagnosis - Patient has always had normal thyroid labs, most recently 04/08 - Asymptomatic - Does not require any additional workup Seizure (HCC) 07/24/2023 Overview Note: - Patient states she has a seizure history and her PCP had previously put her on Keppra, but never saw Neurology and no longer on medications - Last seizure in January, states it was related to her heart - Does not require additional workup, already has Cardio-OB appointment scheduled ALLERGIES Allergen Reactions Amoxicillin Rash, GI Upset, Unknown Anesthetics - Amide* Other: See Comments Bupivacaine Shortness of Breath Chloroprocaine Shortness of Breath Coconut Anaphylaxis, Unknown Dexamethasone Itching Hydrocodone Itching, Unknown Latex Other: See Comments, Unknown Lidocaine Shortness of Breath Onion Extract Other: See Comments Vancomycin Rash, Other: See Comments Vicodin [Hydrocodon* Rash PRIOR TO ADMISSION MEDICATIONS: Cannot display prior to admission medications because the patient has not been admitted in this contact. REVIEW OF SYSTEMS: The remainder of the review of systems is negative. Objective LAST VITALS: Pulse BP Resp O2 Sat Temp Pain HT/WT/BMI: Height Weight BMI PHYSICAL EXAM: some components of the physical exam were completed during this joint visit by Dr. Wall, and carried from her note. General: WD, WN, NAD HEENT: NC/AT, sclera white Lungs: clear, normal respiratory effort Heart: RR, S1, S2, no franki, rub, or murmur appreciated Abdomen: soft, nontender, gravid Extremities: no edema LABS Diagnostic tests reviewed for today's visit: Most recent labs and imaging results. 05/24/24 EKG: Normal sinus rhythm. RSR' or QR pattern in V1 suggests right ventricular conduction delay. 06/30/24 TTE: CONCLUSIONS: - Exam indication: Shortness of Breath - The left ventricle is normal in size. Left ventricular systolic function is normal. EF = 62 5% (2D biplane) Normal left ventricular diastolic function. - The right ventricle is normal in size. Right ventricular systolic function is normal. - There is mild (1+) pulmonic valve regurgitation. - Estimated right ventricular systolic pressure is not reported due to an insufficient tricuspid regurgitation signal. Estimated right atrial pressure is 8 mmHg based on IVC assessment. - There are no significant valvular abnormalities. 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 Prior EKG demonstrate a RBBB but without characteristic features of Brugada syndrome and no other personal or family history of sustained ventricular arrhythmias or sudden cardiac . - At this time, the EKG findings and history are not diagnostic for Brugada sydnrome. - Echo today is structurally and functionally normal - Known RBBB - Given VUS in genes associated with cardiac disease including Brugada syndrome (SCN5A) and cardiomyopathy (TNNT2A) and current limitations of genetic testing, we recommend continued follow up with yearly echo and medical genetics follow up in the event these variants become reclassified in the future - No POTS (postural orthostatic tachycardia syndrome) Nonpharmacologically managed at this time. Frequent symptoms but stable from prior. - Discussed precautions for avoiding presyncope/syncope such as slow position changes, compression stockings - Emphasized importance of frequent meals and adequate nutritional intake and hydration, especiallyduring - Recommended electrolyte-containing fluids to improve volume status and avoid symptoms - Will obtain baseline NT-proBNP - No further cardiac interventions needed at this time. Can deliver at [facility] as desired with cardiology consultation as needed Seizure (HCC) Unclear if any history of seizures or confounded by syncopal events. Previously diagnosed with epilepsy but then saw neurologist who told her this was not epilepsy. Prior Keppra use but this discontinued and has not had any seizure like events despite no AED use - No further management at this time History of delivery, currently History of PPROM at 31 weeks in the setting of complicated by FGR, delivered by . - Continue serial cervical length assessments from 16-24 weeks - Will need further counseling on TOLAC versus repeat section for current - Plans delivery at [facility] Seen and discussed with Dr. Gonzalez, [facility] attending Lulú Olivia MD PGY7 Fellow, Maternal- Medicine SIGNATURE: Lulú Olivia MD PATIENT NAME: Rosy Dominique DATE: July 01, 2024 TIME: 11:13 AM M Attending Addendum: I have seen, evaluated and counseled the above patient with Dr. Olivia. I reviewed the documentation and agree with the clinical assessment and medical decision making as noted above with the following addendum/modifications: 18 yo at 19w4d with a history of possible Brugada syndrome presenting for [facility] CardioOB consultation. She has a history of dizziness/syncope, which was initially diagnosed as POTS. She was treated withfludrocortisone, which she did not feel helped her symptoms (currently uses supportive measures including oral hydration and compression stockings). She was evaluated by cardiac genetics in [facility] where she was noted to have a VUS in SCN5A and TNNT2 genes (records of genetic testing unavailable for review). Given this finding and EKGs which persistently demonstrated RBBB, concern for Brugada syndrome was raised. Holter and ECHO in [place] were reported as normal. Since becoming she reports increased fatigue, occasional lightheadedness (worse in the midtrimester), and rare palp itations. She reports overall tolerance of daily activities. Her medical history also includes a prior concern for a seizure disorder which was initially managed with AED therapy with Keppra, but shereports being taken off therapy after neurologic evaluation. Her OB history is notable for a prior complicated by PPROM and FGR in 2021 (records unavailable for review). She reports PPROM at 30-31 weeks gestation with short latency period and delivery at ~31 weeks. She delivered by LTCD secondary to non-reassuring FHR pattern and weight was 3#14. Some notes reference possible toxoplasmosis however there are not records to confirm this diagnosis. She denies a history of hypertensive disorders of , GDM, or other OB complications. She also has a history of recurrent loss and has not had APLS testing. Her course in her current was notable for EFW at the 7th percentile at the anatomic survey; however by US all biometric parameters measured within the normal range. NIPS wasrisk-reducing for aneuploidy. Transvaginal cervical length was normal at that time. Remainder of her course has been uncomplicated to date. Remainder of history and exam as above. Available and relevant data/labs reviewed - EKG - NSR, RSR' or QR pattern in V1 suggests RV conduction delay - ECHO 06/30/24 - CONCLUSIONS: - Exam indication: Shortness of Breath - The left ventricle is normal in size. Left ventricular systolic function is normal. EF = 62 5% (2D biplane) Normal left ventricular diastolic function. - The right ventricle is normal in size. Right ventricular systolic function is normal. - There is mild (1+) pulmonic valve regurgitation. - Estimated right ventricular systolic pressure is not reported due to an insufficient tricuspid regurgitation signal. Estimated right atrial pressure is 8 mmHg based on IVC assessment. - There are no significant valvular abnormalities. - The patient has not had a prior CC echocardiographic exam for comparison. Impression: Ruffin gestation at 19w4d VUS in SCNA5 and TNNT2 genes, RBBB - not c/w Brugada syndrome Possible POTS History of spontaneous PTD History of FGR with EFW < 10th percentile at anatomic survey History of LTCD Plan: During consultation today we discussed the following recommendations for her care: 1. VUS in SCNA5 and TNNT2 genes, RBBB - not c/w Brugada syndrome We reviewed her history of VUS in the aforementioned genes and discussed the clinical implications.During CardioOB clinic today, her EKG was reviewed with EP colleagues and was not felt to be c/w Brugada syndrome. We reviewed VUS and discussed the potential for genetic VUS to become reclassified as disease- causing/pathogenetic. As such, recommend ongoing follow-up with cardiology and cardiac genetics, and we discussed a consideration for yearly echocardiography to assess for any chance in cardiac function/status. Baseline BNP was ordered today. Overall, given her current reassuring cardiac status/ECHO, we anticipate that she will tolerate the physiologic changes of , labor/delivery, and the period and routine OB care is recommended. From a cardiac perspective, regional delivery is recommended (planned at [facility]). 2. Possible POTS We reviewed that her underlying symptoms of dizziness/occasional palpitations may represent POTS. The implications of POTS were reviewed. We discussed that POTS is not associated with an increased risk of adverse maternal or outcomes in . While can provoke postural or orthostatic symptoms, limited series of patients with POTS characterize some symptom improvement during the second and third trimester, likely due to blood volume expansion. We reviewed that the treatment of POTS in includes avoidance of exacerbating factors and dehydration, and that compression stocking and increased salt intake are safe therapies in . Recommend ongoing symptom surveillance and supportive measures. 3. History of spontaneous PTD We reviewed her history of one prior late spontaneous PTD at ~31 weeks gestation. We discussed the implications of a previous on subsequent outcomes including the increased risk of a recurrent delivery, which may occur at an earlier gestational age than her prior PTD. We reviewed that outcomes are primarily dependent on gestational age at delivery and an overview of the gestational age-related risks of prematurity was provided. We discussed that therapies to prevent recurrent are limited. Based on the available evidence to date, 17P is not recommended for prevention of delivery and data on vaginal progesterone for prevention of spontaneous PTD remains limited. With discussion today she does not desire progesterone for prevention of . We reviewed the recommendation for midtrimester TVCL screening (biweekly from [id number]-[id number] weeks) with consideration of cerclage placement should a significantly shortened cervix be detected. Lastly, recommend clinical surveillance for labor and PTB sx/precautions were reviewed. 4. History of FGR with EFW < 10th percentile at anatomic survey We reviewed her history of FGR and discussed the implications for her current . We reviewed the potential for recurrence of FGR in her current/future pregnancies, and an overview of the risks and management of pregnancies complicated by FGR was provided. Reviewed the finding of EFW < 10th percentile at the midtrimeter anatomic survey, and discussed that given that all biometric parameters were in the normal range, the finding likely represents the limitations of estimation of weight at the early gestational age and not FGR. NIPS was risk-reducing for aneuploidy. A short-interval follow-up is planned (3 weeks - see note from Dr. Hassan for details). Serial assessment of growth is recommended (every 4 weeks starting at ~24-26 weeks gestation). 5. History of LTCD Mode of delivery to be reviewed with primary OB team. Midtrimester counseling provided. OB precautions and cardiac precautions were reviewed. All questions were addressed. Continue follow-up with primary OB team in [place]. Please feel free to contact me with questions. Matthias Gonzalez MD I spent a total of 60 minutes on the date of the service which included preparing to see the patient, [id number] patient care, completing clinical documentation, obtaining and/or reviewing separately obtained history, performing a medically appropriate examination, counseling and educating the pat ient/family/caregiver, communicating results to the patient/family/caregiver, and care coordination(not separately reported). documented in this encounterU[facility] Center08-21-2024 NoteHNO ID: [id number] Author: MATTHIAS GONZALEZ MD Service: ? 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 She has had electrocardiographic studies which have revealed a right bundle branch block but otherwise have not been confirmatory for Brugada syndrome. She wore a Holter monitor in 2022 which was negative. She does not have a family history significant for any other family members with sudden cardiac or other congenital heart disease. She has also been diagnosed with POTS disease but not evidence of prior tilt table testing. She was trialed once before on fludrocortisone which worsened her symptoms so was discontinued. She manages her symptoms nonpharmacologically at this time with hydration, avoiding sudden position changes and use of compression stockings with periods of prolonged standing. Today, she reports that she has continued to experience presyncopal events that are mostly triggered by sudden position changes such as taking the elevator. She does report that she has felt more lightheaded and presyncopal in recent weeks during this and also notes dyspnea with activity. HISTORY REVIEW PAST MEDICAL HISTORY No date: Brugada syndrome No date: Chronic daily headache No date: Complication of anesthesia No date: Diabetes, gestational No date: POTS (postural orthostatic tachycardia syndrome) No date: Seizure (HCC) No date: Thyroid disease No date: Trauma PAST SURGICAL HISTORY 06/14/2022: DELIVERY ONLY 03/17/2024: L'SCOPE DX W/WO BRUSHINGS/WASHINGS Comment: Catarino julien r/o ectopic 08/18/2022: MASTOTOMY W/EXPLORATION/DRAINAGE ABSCESS DEEP; Right FAMILY HISTORY Problem Relation Age of Onset None Mother None Father Diabetes Paternal Grandfather Social History Tobacco Use Smoking status: Never Passive exposure: Yes Smokeless tobacco: Never Tobacco comments: vape Vaping Use Vaping status: Former Substances: Nicotine Substance Use Topics Alcohol use: No Drug use: Never Obstetric History T0 L1 SAB5 IAB1 Ectopic0 Multiple0 Live Births1 Name of Baby 1: Not recorded Date: Not recorded GA: Not recorded Type: Not recorded Apgar1: Not recorded Apgar5: Not recorded Living: Not recorded Name of Baby 2: Not recorded Date: Not recorded GA: Not recorded Type: Not recorded Apgar1: Not recorded Apgar5: Not recorded Living: Not recorded Name of Baby 3: Not recorded Date: Not recorded GA: Not recorded Type: Not recorded Apgar1: Not recorded Apgar5: Not recorded Living: Not recorded Name of Baby 4: Not recorded Date: 08/19/19 GA: Not recorded Type: INDUCED Apgar1: Not recorded Apgar5: Not recorded Living: Not recorded Name of Baby 5: Alice Date: 06/14/22 GA: 31w0d Type: , Unspecified Apgar1: Not recorded Apgar5: Not recorded Living: Living Name of Baby 6: Not recorded Date: 11/03/22 GA: Not recorded Type: MISSED AB Apgar1: Not recorded Apgar5: Not recorded Living: Not recorded Name of Baby 7: Not recorded Date: 01/18/24 GA: Not recorded Type: Not recorded Apgar1: Not recorded Apgar5: Not recorded Living: Not recorded Name of Baby 8: Not recorded Date: Not recorded GA: Not recorded Type: Not recorded Apgar1: Not recorded Apgar5: Not recorded Living: Not recorded Active Non-Hospital Problems Diagnosis Date Noted growth restriction antepartum 06/24/2024 Overview Note: - Patient diagnosed with FGR based on EFW 7%ile at 18w5d, normal dopplers - Patient thoroughly counseled by MFM - Patient with history of severe FGR and toxoplasmosis with subsequent PPROM at 31 weeks - Normal cervical length on ultrasound - Per chart review, no evidence of toxoplasmosis, patient tested negative in June 2022 at time of delivery - Repeat growth ultrasound ordered in 3 weeks POTS (postural orthostatic tachycardia syndrome) 06/24/2024 Hx of impaired glucose tolerance 05/26/2024 Overview Note: - Patient states she has T1DM, has never been on insulin - No documentation in chart of diagnosis/criteria - A1C 4.9 (04/08/24) - For normal glucose tolerance testing at 28 weeks Headache in pr (more content not included)...[facility] 06-30-2024 Instructions* Patient Instructions* Alejandrina Wall DO - 06/30/2024 1:59 PM EDT Treatment Plan: - Ordered NT ProBNP blood test to establish a baseline, to be completed either at the clinic or in [place]. - Recommended patient to stay hydrated and consider electrolyte beverages like Pedialyte or Gatorade. - Advised use of compression stockings, potentially up to the hips, to help with dizziness and lightheadedness. - No further cardiac interventions needed during ; will develop a delivery plan in coordination with [place] [facility]. - Will follow patient long-term with yearly echocardiograms and re-establish to the medical genetics team for ongoing monitoring. - Will have one of the electrical doctors review patient's EKG for a second opinion on Brugada criteria. - Patient encouraged to reach out with any concerns; follow-up will be coordinated through [place] office starting in November. Please send a [employer] message or call with any questions or concerns: Auto Clutch Specialist: [phone] Outpatient Nurse: [phone] If you need to schedule any appointments, please call: Scheduling office: [phone] documented in this encounterUc Medical Center08-21-2024 History of Present illness Narrative* Alejandrina Wall DO - 06/30/2024 1:00 PM EDT Images from the original note were not included. Heart ,Thoracic and Vascular [place] [facility] [place] Section of Heart Failure and Cardiac Transplant Medicine Section of Maternal Medicine Cardio-Obstetrics Clinic 06/30/2024 OUTPATIENT VISIT TYPE New Patient Referring Physician: January OB: Paras Seamer Operator: Mila Alamo Rosy Dominique is a 18 year old with an of Estimated Date of Delivery: 11/20/24 HISTORY OF PRESENT ILLNESS: Ms. Dominique presents today to Cardio-OB clinic given her VUS SCN5A and TNNT2 mutations currently 19 weeks , presenting for evaluation. She reports increased fatigue, dyspnea on exertion, and palpitations since the onset of . She also experiences dizziness, which has worsened as the has progressed. She has not had any syncope episodes during this but has a history of frequent syncope in the past. Patient was initially diagnosed with POTS based on family history and was treated with fludrocortisone, which exacerbated her symptoms, causing increased dizziness, fever, and vomiting. She later developed seizure-like episodes and was misdiagnosed with epilepsy, for which she was prescribed Keppra. Genetic testing in 2022 revealed two variants of unknown significance (SCN5A and TNNT2), leading to a diagnosis of Brugada syndrome. Her EKGs have consistently shown a right bundle branch block pattern. Patient has had multiple pregnancies and 1 delivery without significant cardiac complications, although she was on bed rest during her last due to labor and IUGR. She is currently followed by a email manager at [facility] but does not have an adult email manager. She is planning to deliver at [facility]. Cardio-OB NURSING INTAKE OB history: Prior c/s, prior small for gestation age Cardiac history: genetic variants of unknown significant in the SCN5A and TNNT2 Genetic testing performed [facility] Desired delivery location: [place] PAST MEDICAL HISTORY No date: Brugada syndrome No date: Chronic daily headache No date: Complication of anesthesia No date: Diabetes, gestational No date: POTS (postural orthostatic tachycardia syndrome) No date: Seizure (HCC) No date: Thyroid disease No date: Trauma PAST SURGICAL HISTORY 06/14/2022: DELIVERY ONLY 03/17/2024: L'SCOPE DX W/WO BRUSHINGS/WASHINGS Comment: Catarino to r/o ectopic 08/18/2022: MASTOTOMY W/EXPLORATION/DRAINAGE ABSCESS DEEP; Right SOCIAL HISTORY Social History Tobacco Use Smoking status: Never Passive exposure: Yes Smokeless tobacco: Never Tobacco comments: vape Vaping Use Vaping status: Former Substances: Nicotine Substance Use Topics Alcohol use: No Drug use: Never FAMILY HISTORY Problem Relation Age of Onset None Mother None Father Diabetes Paternal Grandfather ALLERGIES: ALLERGIES Allergen Reactions Amoxicillin Rash, GI Upset, Unknown Anesthetics - Amide* Other: See Comments Bupivacaine Shortness of Breath Chloroprocaine Shortness of Breath Coconut Anaphylaxis, Unknown Dexamethasone Itching Hydrocodone Itching, Unknown Latex Other: See Comments, Unknown Lidocaine Shortness of Breath Onion Extract Other: See Comments Vancomycin Rash, Other: See Comments Vicodin [Hydrocodon* Rash PHYSICAL EXAMINATION: BP 96/66 (BP Site: Left Arm) Pulse 94 Ht 5' 9 (1.753 m) Wt 132 lb 11.2 oz (60.2 kg) LMP 02/14/2024 SpO2 100% BMI 19.60 kg/m Last 2 Encounter Wt Readings: Date: Wt: 06/24/2024 129 lb (58.5 kg) (51%, Z= 0.03)* 05/26/2024 128 lb 12.8 oz (58.4 kg) (51%, Z= 0.03)* Last 3 BP Last 3 Encounter BP Readings: Date: BP: 06/24/2024 89/60 06/05/2024 91/66 05/26/2024 95/67 General: Well appearing, in no acute distress. Skin: No clubbing, no cyanosis. Eyes: Extra ocular movements intact Oropharynx: Teeth in good repair. Neck: No jugular venous distention, no carotid bruits, carotids have a normal upstroke, no palpablethyromegaly. Lungs: Clear to auscultation bilaterally, no wheezing or rhonchi. Heart: Regular rhythm, PMI not displaced, S1, S2 normal, no S3, no S4, no heaves, no rub and no murmur. Abdomen: Soft, nontender, bowel sounds normal, no palpable organomegaly, no bruits. Extremities: No peripheral edema . Grade 2/4 distal pulses bilaterally. Neuro: Oriented to person, place and time, alert, cooperative, gait coordinated. No results found for: LVEF, LVEDD, LVESD Sodium (mmol/L) Date Value 05/19/2024 136 05/12/2024 136 04/08/2024 138 04/20/2021 141 Potassium (mmol/L) Date Value 05/19/2024 3.5 05/12/2024 3.7 04/08/2024 4.7 04/20/2021 4.0 Chloride (mmol/L) Date Value 05/19/2024 102 05/12/2024 103 04/08/2024 106 04/20/2021 103 CO2 (mmol/L) Date Value 05/19/2024 22 05/12/2024 22 04/08/2024 23 04/20/2021 22 BUN (mg/dL) Date Value 05/19/2024 5 05/12/2024 7 04/08/2024 7 04/20/2021 12 Creatinine (mg/dL) Date Value 05/19/2024 0.61 05/12/2024 0.72 04/08/2024 0.69 04/20/2021 0.80 Calcium (mg/dL) Date Value 04/20/2021 10.1 Calcium, Total (mg/dL) Date Value 05/19/2024 9.0 05/12/2024 9.7 04/08/2024 9.4 Glucose (mg/dL) Date Value 05/19/2024 70 05/12/2024 83 04/08/2024 85 04/20/2021 72 No results found for: PBNP CARDIOVASCULAR MEDICINE TESTING: I have personally reviewed the Laboratory Testing and Echocardiogram. 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 EKGs show an incomplete right bundle branch block pattern. Recent echocardiogram showed no structural abnormalities and normal LVEF. Patient experiences increased episodes of dizziness and palpitations during , likely exacerbated by physiological changes and low blood pressure. - I reviewed the EKG with my electrophysiology colleagues, not consistent with Brugada - Monitor patient's symptoms throughout the . - Consider yearly echocardiograms to monitor for any structural changes in the heart. - re-establish with the medical genetics team for further evaluation of the genetic variants. - Obtain baseline NT-proBNP to assess for any cardiac stress. History of : Patient has a history of labor and IUGR in a previous , resulting in a delivery at 30-31 weeks. - Monitor the growth of the current per OB - Develop a delivery plan in collaboration with the OB team at [facility], where the patient plans to deliver. Palpitations: Patient experiences palpitations which have increased during . - Monitor patient's symptoms throughout the . - Consider obtaining a Holter monitor to further evaluate the palpitations if they persist or worsen. RBBB (right bundle branch block): Patient's EKGs consistently show a right bundle branch block pattern. Recent echocardiogram showed no structural abnormalities. - Monitor patient's EKG findings throughout the . - Consider yearly echocardiograms to monitor for any structural changes in the heart. DELIVERY PLAN: Diagnosis: Variance of unknown significance, SCN5A and TNNT2 PeriPartum/Cardiac Concerns: Location of Delivery: [facility] Mode of delivery: per OB Timing of delivery: per OB Staff required in delivery room: standard OB Anesthesia consult (WHO gp II-III and above): No Type of anesthesia: slowly dosed epidural Drugs to avoid: n/a Intrapartum fluid management: no Type of monitoring: arterial line no telemetry no I/Os no Anticoagulation: none Medications prior to delivery: none Medications after delivery: none Post-delivery location after 2 hour recovery: standard Post-delivery monitoring: none Post- follow up: Yearly follow up with Dr. Wall Service to consult on admission with contact information: consult cardiology as needed Heart Failure specific medications (list current, note updates or changes, note prior intolerance): BB: no ACEI/ARB/ARNI: no MRA: no SGLT2: no Diuretic: no Digoxin: no Vasodilators: no Anti-arrhythmics: no Ivabradine: no Other anti-HTN: no PLAN AND RECOMMENDATIONS: - Ordered NT ProBNP blood test to establish a baseline, to be completed either at the clinic or in [place]. - Recommended patient to stay hydrated and consider electrolyte beverages like Pedialyte or Gatorade. - Advised use of compression stockings, potentially up to the hips, to help with dizziness and lightheadedness. - No further cardiac interventions needed during ; will develop a delivery plan in coordination with [facility]. - Will have one of the electrical doctors review patient's EKG for a second opinion on Brugada criteria. - Patient encouraged to reach out with any concerns; follow-up will be coordinated through [facility] starting in November. RTC: - Will follow patient long-term with yearly echocardiograms and re- establish to the medical genetics team for ongoing monitoring. Orders Placed This Encounter COMP METABOLIC PANEL Standing Status: Future Standing Expiration Date: 09/29/2024 NT PRO BNP Standing Status: Future Standing Expiration Date: 09/29/2024 HVI OP FOLLOW UP APPT ORDER Order Comments: Ehco, lab work 1 year at [place] office Standing Status: Future Standing Expiration Date: 06/30/2025 Order Specific Question: Schedule patient for follow up Answer: Yes Order Specific Question: Provider Answer: ALEJANDRINA WALL [[id number]] Order Specific Question: CVM Section: Answer: Heart Failure Order Specific Question: Return: Answer: 1 year Order Specific Question: Type of follow up visit Answer: In-person ECHO Standing Status: Future Standing Expiration Date: 06/30/2025 Order Specific Question: Disease / Condition: Answer: Heart Failure Order Specific Question: Indication: Answer: Evaluation of known heart failure to guide therapy I personally interviewed, confirmed and edited the above information as obtained by others I personally was involved in the management and care of this patient. We discussed natural history of disease, current treatment options, and future potential treatment options. We discussed diet, exercise, other non-medical management as above. Alejandrina Wall DO, [facility] Staff Physician [facility] Section Of Heart Failure and Cardiac Transplant Medicine Heart and V[facility] Desk [address] [place] [address] documented in this encounterUc Medical Center08-21-2024 NoteHNO ID: [id number] Author: ALEJANDRINA WALL DO Service: ? Author Type: Physician Type: Progress Notes Filed: 06/30/2024 16:55 Note Text: Heart ,Thoracic and Vascular [place] [facility] [place] Section of Heart Failure and Cardiac Transplant Medicine Section of Maternal Medicine Cardio-Obstetrics Clinic 06/30/2024 OUTPATIENT VISIT TYPE New Patient Referring Physician: January OB: Paras Seamer Operator: Mila Alamo Rosy Dominique is a 18 year old with an of Estimated Date of Delivery: 11/20/24 HISTORY OF PRESENT ILLNESS: Ms. Dominique presents today to Cardio-OB clinic given her VUS SCN5A and TNNT2 mutations currently 19 weeks , presenting for evaluation. She reports increased fatigue, dyspnea on exertion, and palpitations since the onset of . She also experiences dizziness, which has worsened as the has progressed. She has not had any syncope episodes during this but has a history of frequent syncope in the past. Patient was initially diagnosed with POTS based on family history and was treated with fludrocortisone, which exacerbated her symptoms, causing increased dizziness, fever, and vomiting. She later developed seizure-like episodes and was misdiagnosed with epilepsy, for which she was prescribed Keppra. Genetic testing in 2022 revealed two variants of unknown significance (SCN5A and TNNT2), leading to a diagnosis of Brugada syndrome. Her EKGs have consistently shown a right bundle branch block pattern. Patient has had multiple pregnancies and 1 delivery without significant cardiac complications, although she was on bed rest during her last due to labor and IUGR. She is currently followed by a email manager at [facility] but does not have an adult email manager. She is planning to deliver at [facility]. Cardio-OB NURSING INTAKE OB history: Prior c/s, prior small for gestation age Cardiac history: genetic variants of unknown significant in the SCN5A and TNNT2 Genetic testing performed [facility] Desired delivery location: [place] PAST MEDICAL HISTORY No date: Brugada syndrome No date: Chronic daily headache No date: Complication of anesthesia No date: Diabetes, gestational No date: POTS (postural orthostatic tachycardia syndrome) No date: Seizure (HCC) No date: Thyroid disease No date: Trauma PAST SURGICAL HISTORY 06/14/2022: DELIVERY ONLY 03/17/2024: L'SCOPE DX W/WO BRUSHINGS/WASHINGS Comment: Catarino julien r/o ectopic 08/18/2022: MASTOTOMY W/EXPLORATION/DRAINAGE ABSCESS DEEP; Right SOCIAL HISTORY Social History Tobacco Use Smoking status: Never Passive exposure: Yes Smokeless tobacco: Never Tobacco comments: vape Vaping Use Vaping status: Former Substances: Nicotine Substance Use Topics Alcohol use: No Drug use: Never FAMILY HISTORY Problem Relation Age of Onset None Mother None Father Diabetes Paternal Grandfather ALLERGIES: ALLERGIES Allergen Reactions Amoxicillin Rash, GI Upset, Unknown Anesthetics - Amide* Other: See Comments Bupivacaine Shortness of Breath Chloroprocaine Shortness of Breath Coconut Anaphylaxis, Unknown Dexamethasone Itching Hydrocodone Itching, Unknown Latex Other: See Comments, Unknown Lidocaine Shortness of Breath Onion Extract Other: See Comments Vancomycin Rash, Other: See Comments Vicodin [Hydrocodon* Rash PHYSICAL EXAMINATION: BP 96/66 (BP Site: Left Arm) Pulse 94 Ht 5' 9 (1.753 m) Wt 132 lb 11.2 oz (60.2 kg) LMP 02/14/2024 SpO2 100% BMI 19.60 kg/m? Last 2 Encounter Wt Readings: Date: Wt: 06/24/2024 129 lb (58.5 kg) (51%, Z= 0.03)* 05/26/2024 128 lb 12.8 oz (58.4 kg) (51%, Z= 0.03)* Last 3 BP Last 3 Encounter BP Readings: Date: BP: 06/24/2024 89/60 06/05/2024 91/66 05/26/2024 95/67 General: Well appearing, in no acute distress. Skin: No clubbing, no cyanosis. Eyes: Extra ocular movements intact Oropharynx: Teeth in good repair. Neck: No jugular venous distention, no carotid bruits, carotids have a normal upstroke, no palpable thyromegaly. Lungs: Clear to auscultation bilaterally, no wheezing or rhonchi. Heart: Regular rhythm, PMI not displaced, S1, S2 normal, no S3, no S4, no heaves, no rub and no murmur. Abdomen: Soft, nontender, bowel sounds normal, no palpable organomegaly, no bruits. Extremities: No peripheral edema . Grade 2/4 distal pulses bilaterally. Neuro: Oriented to person, place and time, alert, cooperative, gait coordinated. No results found for: LVEF, LVEDD, LVESD Sodium (mmol/L) Date Value 05/19/2024 136 05/12/2024 136 04/08/2024 138 04/20/2021 141 Potassium (mmol/L) Date Value 05/19/2024 3.5 05/12/2024 3.7 04/08/2024 4.7 04/20/2021 4.0 Chloride (mmol/L) Date Value 05/19/2024 102 05/12/2024 103 04/08/2024 106 04/20/2021 103 CO2 (mmol/L) Date Value 05/19/2024 22 (more content not included)...[facility]08-20-2024 Telephone encounter Note* Telephone Encounter - Barbie Orellana RN - 06/29/2024 10:08 AM EDT Message left on patients phone confirming her appointment tomorrow. Encouraged to call me back if she is unable to come to her appointment. Salina Orellana RN [facility]08-20-2024 Miscellaneous Notes* Telephone Encounter - Barbie Orellana RN - 06/29/2024 10:08 AM EDT Message left on patients phone confirming her appointment tomorrow. Encouraged to call me back if she is unable to come to her appointment. Salina Orellana RN documented in this encounter[facility]24 Progress note* Quick Notes - Sctot Hoang MD - 06/24/2024 11:37 AM EDT S: Rosy presents for SIVA appointment today. She had her early anatomy ultrasound this morning andwas diagnosed with growth restriction. She expresses significant concern regarding her baby. Thoroughly discussed diagnosis and follow up plan with patient and partner, all questions answered to patient satisfaction. Patient endorses single episode of bloody mucous earlier in the week after going to the [facility] for abdominal pain and receiving a cervical check. Declines exam at this time and states bleeding and discharge have resolved. Continues to endorse abdominal contractions. States she can see contractions occurring and has video on her phone. Upon looking at video, can see fetus moving in abdomen as patient is very slim. Discussed likely feeling movement and reviewed concerning features including severe pain and other indications for presentation to the [facility]. Otherwise endorses good movement, no vaginal bleeding, loss of fluid, or regular painful contractions. BP 89/60 Pulse 105 Wt 58.5 kg (129 lb) LMP 02/14/2024 BMI 19.05 kg/m Physical Exam General: NAD Heart: RR Lungs: normal respiratory effort Extremities: no edema Heart Tones: See OB flowsheet Pt is a 18 year old year old at 18w5d growth restriction antepartum - Patient diagnosed with FGR based on EFW 7%ile at 18w5d, normal dopplers - Patient thoroughly counseled by MFM - Patient with history of severe FGR and toxoplasmosis with subsequent PPROM at 31 weeks - Normal cervical length on ultrasound - Per chart review, no evidence of toxoplasmosis, patient tested negative in June 2022 at time ofdelivery - Repeat growth ultrasound ordered in 3 weeks Encounter for supervision of high risk young multigravida, antepartum - Continue cervical length screening q2-3 weeks - Repeat growth scan in 3 weeks per new diagnosis of FGR - RTC in 4 weeks, can be scheduled with resident clinic - Plan to see high risk again one time after Cardio-OB appointment, will determine resident clinic vs high risk at that time - Patient seeing Cardio-OB clinic 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 Attending Note I discussed with resident. The patient was not examined by the attending. I reviewed the resident'snote. I agree with the resident's assessment and plan unless otherwise noted. Signature: Helen Hayward MD Date: 06/24/2024. Time: 1:51 PM [facility] Miscellaneous Notes* Quick Notes - Scott Hoang MD - 06/24/2024 11:37 AM EDT S: Rosy presents for SIVA appointment today. She had her early anatomy ultrasound this morning andwas diagnosed with growth restriction. She expresses significant concern regarding her baby. Thoroughly discussed diagnosis and follow up plan with patient and partner, all questions answered to patient satisfaction. Patient endorses single episode of bloody mucous earlier in the week after going to the [facility] for abdominal pain and receiving a cervical check. Declines exam at this time and states bleeding and discharge have resolved. Continues to endorse abdominal contractions. States she can see contractions occurring and has video on her phone. Upon looking at video, can see fetus moving in abdomen as patient is very slim. Discussed likely feeling movement and reviewed concerning features including severe pain and other indications for presentation to the [facility]. Otherwise endorses good movement, no vaginal bleeding, loss of fluid, or regular painful contractions. BP 89/60 Pulse 105 Wt 58.5 kg (129 lb) LMP 02/14/2024 BMI 19.05 kg/m Physical Exam General: NAD Heart: RR Lungs: normal respiratory effort Extremities: no edema Heart Tones: See OB flowsheet Pt is a 18 year old year old at 18w5d growth restriction antepartum - Patient diagnosed with FGR based on EFW 7%ile at 18w5d, normal dopplers - Patient thoroughly counseled by MFM - Patient with history of severe FGR and toxoplasmosis with subsequent PPROM at 31 weeks - Normal cervical length on ultrasound - Per chart review, no evidence of toxoplasmosis, patient tested negative in June 2022 at time ofdelivery - Repeat growth ultrasound ordered in 3 weeks Encounter for supervision of high risk young multigravida, antepartum - Continue cervical length screening q2-3 weeks - Repeat growth scan in 3 weeks per new diagnosis of FGR - RTC in 4 weeks, can be scheduled with resident clinic - Plan to see high risk again one time after Cardio-OB appointment, will determine resident clinic vs high risk at that time - Patient seeing Cardio-OB clinic 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 Attending Note I discussed with resident. The patient was not examined by the attending. I reviewed the resident'snote. I agree with the resident's assessment and plan unless otherwise noted. Signature: Helen Hayward MD Date: 06/24/2024. Time: 1:51 PM documented in this encounterUc [facility] Center08-15-2024 Nurse Note* Arpit Arteaga MA - 06/24/2024 11:18 AM EDT Movement? Active baby Vaginal Bleeding: NO Vaginal fluid leakage of fluid: NO Contractions: regular contractions every 4-5 minutes Edema: Negative Pt states that she had US appt today and would like to go over US results. Arpit Arteaga MA [facility] Nurse Note* Arpit Arteaga MA - 06/24/2024 11:18 AM EDT Movement? Active baby Vaginal Bleeding: NO Vaginal fluid leakage of fluid: NO Contractions: regular contractions every 4-5 minutes Edema: Negative Pt states that she had US appt today and would like to go over US results. Arpit Arteaga MA documented in this encounterUc Medical Center08-15-2024 NoteHNO ID: [id number] Author: ASHELY HASSAN MD Service: ? Author Type: Physician Type: Progress Notes Filed: 06/24/2024 10:59 Note Text: FINDINGS 1. FGR at the 7% HISTORY 1. Last was complicated with FGR with associated toxoplasmosis and PPROM The patient is referred for a detailed anatomic survey. - Single, live, intrauterine . - biometry is indicating FGR with an EFW at the 7% ~ 209g - No malformations were visualized on a complete detailed anatomic survey. - The amniotic fluid volume is normal amount. - The placenta is anterior, left. - The Transvaginal cervical length measures 44 mm with no evidence of funneling or other dynamic changes. - Not all structural malformations can be detected by ultrasound examination. Discussed finding of FGR. The results of the ultrasound were discussed with Ms. Rosy Dominique . I explained that by today's US the baby was measuring at the 7% with an EFW of 209g and an AC at the 27W%. NIPT results negative for aneuploidy. We then discussed the causes of early growth restriction and I explained that it most often broke down into constitutional ie that the baby is following its genetically predetermined growth potential, non placental causes including genetic, and infections and placentally mediated. I explained that in regards to constitutional, I explained that growth and what is considered normal is based off of a rivera shaped curve and that we say that any baby less than the 10% is considered small. Which results in all babies less than the 10% (even if its normal) being considered small. I cautioned that the further out to the extreme you go the higher the risk of a pathologic cause of the baby being small. In regards to non-placental issues I explained that these are usually associated with a constellation of signs on ultrasound which I did not see including cardiac and intracranial anomalies. I explained that while ultrasound is good modality to look for non-placental causes of small babies. We then discussed the efficacy of NIPT and I explained that the negative predictive value for NIPT was 99.7% but that NIPT only looked for the most common aneuploidies eg Down's (T21), T18, T13, Osborn's and some sex chromosomal anomalies. We then discussed placentally mediated issues ie placental insufficiency. I explained that in some cases the placenta may not be working as well as it should and the transfer of nutrients and oxygen may become compromised - slowing the baby's growth. Of note, Doppler's today showed forward flow and was within normal parameters. . We then discussed next steps and Ms. Rosy Dominique and I explained that I would recommend a follow up growth in 3 weeks. Of note Ms. Rosy Dominique's last was complicated by severe FGR with associated toxoplasmosis infection (as per Ms. Rosy Dominique she had been treated for this infection). She also subsequently went into labor at 31w. Recommendations Continue cervical length screening Follow up growth in 3 weeks - discussed that if baby is still small especially with a slowing growth velocity would recommend consideration for invasive testing. Ashely Hassan Division of Maternal Medicine [facility] Medical Decision Making: Problems: Moderate: New problem with uncertain prognosis Data: Unique test(s) ordered: 1 Risk: Moderate: Moderate risk from testing/treatment Medical Decision Making Level: 4 - [facility] 06-24-2024 History of Present illness Narrative* Ashely Hassan MD - 06/24/2024 10:55 AM EDT FINDINGS 1. FGR at the 7% HISTORY 1. Last was complicated with FGR with associated toxoplasmosis and PPROM The patient is referred for a detailed anatomic survey. - Single, live, intrauterine . - biometry is indicating FGR with an EFW at the 7% ~ 209g - No malformations were visualized on a complete detailed anatomic survey. - The amniotic fluid volume is normal amount. - The placenta is anterior, left. - The Transvaginal cervical length measures 44 mm with no evidence of funneling or other dynamic changes. - Not all structural malformations can be detected by ultrasound examination. Discussed finding of FGR. The results of the ultrasound were discussed with Rosy Dominique . I explained that by today's US the baby was measuring at the 7% with an EFW of 209g and an AC at the 27W%. NIPT results negative for aneuploidy. We then discussed the causes of early growth restriction and I explained that it most often broke down into constitutional ie that the baby is following its genetically predetermined growth potential, non placental causes including genetic, and infections and placentally mediated. I explained that in regards to constitutional, I explained that growth and what is considerednormal is based off of a rivera shaped curve and that we say that any baby less than the 10% is considered small. Which results in all babies less than the 10% (even if its normal) being considered small. I cautioned that the further out to the extreme you go the higher the risk of a pathologic cause of the baby being small. In regards to non-placental issues I explained that these are usually associated with a constellation of signs on ultrasound which I did not see including cardiac and intracranial anomalies. I explained that while ultrasound is good modality to look for non-placental causes of small babies. We then discussed the efficacy of NIPT and I explained that the negative predictive value for NIPT was 99.7% but that NIPT only looked for the most common aneuploidies eg Down's (T21), T18, T13, Osborn's and some sex chromosomal anomalies. We then discussed placentally mediated issues ie placental insufficiency. I explained that in some cases the placenta may not be working as well as it should and the transfer of nutrients and oxygen may become compromised - slowing the baby's growth. Of note, Doppler's today showed forward flow andwas within normal parameters. . We then discussed next steps and Ms. Rosy Dominique and I explained that I would recommend a follow up growth in 3 weeks. Of note Ms. Rosy Dominique's last was complicated by severe FGR with associated toxoplasmosis infection (as per Ms. Rosy Dominique she had been treated for this infection). She also subsequently went into labor at 31w. Recommendations Continue cervical length screening Follow up growth in 3 weeks - discussed that if baby is still small especially with a slowing growth velocity would recommend consideration for invasive testing. Ashely Hassan Division of Maternal Medicine [facility] Medical Decision Making: Problems: Moderate: New problem with uncertain prognosis Data: Unique test(s) ordered: 1 Risk: Moderate: Moderate risk from testing/treatment Medical Decision Making Level: 4 - Moderate documented in this encounterUc [facility] Center08-13-2024 Telephone encounter Note * Telephone Encounter - Monique Pitt RN - 06/22/2024 12:20 PM EDT Patient called and said she thinks she lost her mucous plug. States she had a small amount of bloody mucous discharge. States she has been feeling cramps off & on for a couple of weeks. Patient has a scheduled appointment at [facility] on Sunday 06/24. Recommended patient call office back or report to OB triage if she starts to bleed more, saturating a janene pad an hour x2 or if her pain becomes intolerable. Patient verbalized understanding. Monique Pitt RN June 22, 2024 1:03 PM [facility] Miscellaneous Notes* Telephone Encounter - Monique Pitt RN - 06/22/2024 12:20 PM EDT Patient called and said she thinks she lost her mucous plug. States she had a small amount of bloody mucous discharge. States she has been feeling cramps off & on for a couple of weeks. Patient has a scheduled appointment at [facility] on Sunday 06/24. Recommended patient call office back or report to OB triage if she starts to bleed more, saturating a janene pad an hour x2 or if her pain becomes intolerable. Patient verbalized understanding. Monique Pitt RN June 22, 2024 1:03 PM documented in this encounterUc Medical Center08-04-2024 NoteHNO ID: [id number] Author: PURA LOYA MD Service: Obstetrics Author Type: Resident Type: Progress Notes Filed: 06/15/2024 07:58 Note Text: Attestation signed by Pura Loya MD at 06/15/2024 7:58 AM Attending Note Delayed entry - I personally saw/examined the patient on 06/13/24. I evaluated the patient and personally participated in the can components. I agree with the resident's findings and plan as documented and have discussed the case and management of the patient's care with the resident. Signature: Pura Loya MD Date: 06/15/2024 Time: 7:58 AM OBSTETRICS OB ED PROGRESS NOTE SERVICE DATE: June 13, 2024 SERVICE TIME: 1:06 AM' Subjective Patient's stated reason for arrival: contractions and pelvic pressure CHIEF COMPLAINT: Abdominal pain HISTORY OF THE PRESENT ILLNESS: The patient is a 18 year old female, who is at 17w1d with an SCOTT of 11/20/2024, by Last Menstrual Period dating method. has been confirmed by ultrasound. Patient complaining of abdominal pain. This is the same pain for which she has previously been seen in the OB ED. She describes the pain as cramping and contractions. She states the pain in located on her left side and lower, central abdomen. She reports that this occurred in her previous pregnancies, without any relief. She decided to come to the OB ED to make sure she was not going into labor. Denies vaginal bleeding, discharge, fluid leakage, headache, vision changes, chest pain, shortness of breath, and right upper quadrant pain. She feels safe at home. Reports no recreational drug, substance use, alcohol, or tobacco/vaping. PAST MEDICAL HISTORY No date: Breast abscess of female Comment: right No date: Brugada syndrome No date: Chronic daily headache No date: Complication of anesthesia No date: Diabetes mellitus type I (HCC) No date: Diabetes, gestational 11/10/2015: NEGATIVE MEDICAL HISTORY Comment: Normal Color Vision No date: POTS (postural orthostatic tachycardia syndrome) No date: Seizure (HCC) No date: Thyroid disease No date: Trauma PAST SURGICAL HISTORY 06/14/2022: DELIVERY ONLY 03/17/2024: L'SCOPE DX W/WO BRUSHINGS/WASHINGS Comment: [place] to r/o ectopic 08/18/2022: MASTOTOMY W/EXPLORATION/DRAINAGE ABSCESS DEEP; Right FAMILY HISTORY Problem Relation Age of Onset None Mother None Father Diabetes Paternal Grandfather OB History T0 L1 SAB5 IAB1 Ectopic0 Multiple0 Live Births1 REVIEW OF SYSTEMS: GENERAL: No weight loss, malaise or fevers. RESPIRATORY: Negative for cough, hemoptysis, wheezing, dyspnea or shortness of breath CARDIOVASCULAR: Negative for chest pain, leg swelling, hypertension, or palpitations GI: No nausea, vomiting, or diarrhea Objective LAST VITALS: Pulse: 89 BP: 91/66 Resp: 18 Temp: 36.5 ?C (97.7 ?F) SpO2: 96 % PHYSICAL EXAM: General: WD, WN, NAD, comfortable HEENT: moist mucous membranes Heart: RR, S1, S2, no franki, rub, or murmur appreciated Lungs: normal pulmonary exam and clear to auscultation Abdomen: soft, non-tender to light or deep palpation in all four quadrants. No rebound or guarding. Negative ji's sign. Extremities: no edema, non-tender to palpation, appropriate capillary refill CERVICAL EXAM: Dilation: Closed (06/13/24 0116 : Dany Shore DO) ASSESSMENT: heart rate present: Mode: Doppler (06/13/24 0015 : Ciara Love, RN) Doppler/Fetoscope Rate: 145 bpm (06/13/24 0015 : Ciara Love, RN) LABS ABO/RH: No results found for: ABORHD HCG QT: Diagnostic tests reviewed for today's visit: Most recent labs and imaging results. Assessment/Plan 18 year old EGA:17w1d. presenting to the OB ED for chronic abdominal pain that increased in pain today. Active Hospital Problems Diagnosis Date Noted Abdominal pain during in first trimester 04/15/2024 - Patient reports contraction-like lower abdominal pain that is recurring every 2-5 minutes. - asymptomatic - Vitals WNL - Abdominal exam: non-tender to palpation in all four quadrants, - SVE: cervix closed - doptones 145 bpm. - Patient not likely in labor. - declines Tylenol - return precautions provided Threatened labor, antepartum 04/28/2022 - history of SAB and labor - reports contractions 2-4 mins - SVE: 2 weeks ago: closed. Repeat today: closed - patient feels reassured and requests discharge - return precautions provided Plan of care discussed with: Provider, RN, Patient. Patient encounter completed under the supervision of Dr. June and Dr. Loya. SIGNATURE: Dany Shore DO PATIENT NAME: Rosy Dominique DATE: June 13, 2024 TIME: 1:06 A (more content not included)...[facility] 06-05-2024 NoteHNO ID: [id number] Author: LUCY CABALLERO DO Service: Obstetrics Author Type: Resident Type: Progress Notes Filed: 06/05/2024 03:40 Note Text: Cervical recheck unchanged, closed. Will discharge home. Return precautions discussed. Abdominal band provided. Supportive care recommendations provided Lucy Caballero DO PGY--2[facility] NoteHNO ID: [id number] Author: MEENU ALVAREZ DO Service: Obstetrics Author Type: Resident Type: Progress Notes Filed: 06/09/2024 04:38 Note Text: Attestation signed by Meenu Alvarez DO at 06/09/2024 4:38 AM Attending Note Delayed entry - I personally saw/examined the patient on 06/05/2024. I evaluated the patient and personally participated in the can components. I agree with the resident's findings and plan as documented and have discussed the case and management of the patient's care with the resident. Signature: Meenu Alvarez DO Date: 06/09/2024 Time: 4:38 AM OBSTETRICS OB ED PROGRESS NOTE SERVICE DATE: June 05, 2024 SERVICE TIME: 3:02 AM Subjective Patient's stated reason for arrival: feeling contraction every 2 minutes CHIEF COMPLAINT: cramping HISTORY OF THE PRESENT ILLNESS: The patient is a 18 year old female, who is at 16w0d with an SCOTT of 11/20/2024 by Last Menstrual Period dating method. has been confirmed by ultrasound. Patient complaining of abdominal pain for the past 3 weeks. Not improved with tylenol. Denies symptoms, GI symptoms. Patient denies back pain, nausea/vomiting, denies vaginal bleeding, denies vaginal discharge, denies leaking of fluid. She has been to the OB regarding this and had negative work up for STIs, UTI. She has history of recurrent SABs and PPROM at 31 weeks. PAST MEDICAL HISTORY Diagnosis Date Breast abscess of female right Brugada syndrome Chronic daily headache Complication of anesthesia Diabetes mellitus type I (HCC) Diabetes, gestational NEGATIVE MEDICAL HISTORY 11/10/2015 Normal Color Vision POTS (postural orthostatic tachycardia syndrome) Seizure (HCC) Thyroid disease Trauma PAST SURGICAL HISTORY Procedure Laterality Date DELIVERY ONLY 06/14/2022 L'SCOPE DX W/WO BRUSHINGS/WASHINGS 03/17/2024 [place] to r/o ectopic MASTOTOMY W/EXPLORATION/DRAINAGE ABSCESS DEEP Right 08/18/2022 OB History T0 L1 SAB5 IAB1 Ectopic0 Multiple0 Live Births1 REVIEW OF SYSTEMS: The remainder of the review of systems is negative. Objective LAST VITALS: Pulse: 92 BP: 105/70 Resp: 18 Temp: 36.7 ?C (98.1 ?F) PHYSICAL EXAM: General: WD, WN Heart: RR, S1, S2 Lungs: clear to auscultation Abdomen: soft, nontender, no masses Extremities: no edema SSE: Normal external genitalia. Normal appearing vaginal vault. Cervical ectroprion present. No vaginal bleeding. No pooling. Normal appearing cervical and vaginal mucus. CERVICAL EXAM: Dilation: Closed (06/05/24 0254 : Lucy Caballero DO) ASSESSMENT: Doppler/Fetoscope Rate: ([address] Caballero) (06/05/24 0242 : Virgen Alamo, RN) Ultrasound: N/A LABS Urine dip negative 05/26, BV/GCCT negative 05/19 Diagnostic tests reviewed for today's visit: Most recent labs and imaging results. Assessment/Plan 18 year old EGA:16w0d with abdominal cramping in second trimester. Active Hospital Problems Diagnosis Date Noted Abdominal pain during in first trimester 04/15/2024 Overview Note: - Patient reports contraction-like lower abdominal pain that is recurring every 2-5 minutes. Not improved with tylenol. - ho PPROM at 31 weeks and SABs - No symptoms, fever, chills. - Vitals WNL - Abdominal exam benign - Speculum exam negative. Cervix closed. - doptones 160 bpm. - Will recheck cervix in 1 hour - Patient not likely in labor. Will dc with belly band and return precautions. She has ultrasound upcoming Friday for cervical length screening due to history. Plan of care discussed with: Provider, RN, Patient. Dr. Alvarez SIGNATURE: Lucy Caballero DO PATIENT NAME: Rosy Dominique DATE: June 05, 2024 TIME: 3:00 AM PAGER/CONTACT #:[facility]07-17-2024 Note* Addendum Note - Scott Hoang MD - 05/26/2024 3:25 PM EDTAddended by: SCOTT HOANG on: 05/26/2024 03:25 PM Modules accepted: Level of Service [facility]07-17-2024 Miscellaneous Notes* Addendum Note - Scott Hoang MD - 05/26/2024 3:25 PM EDTAddended by: SCOTT HOANG on: 05/26/2024 03:25 PM Modules accepted: Level of Service * Quick Notes - Scott Hoang MD - 05/26/2024 1:19 PM EDT Images from the original note were not included. MATERNAL MEDICINE ROUTINE OB VISIT S: Rosy states she is feeling well today with no new concerns. She endorses intermittent cramps that she refers to as contractions but states they are rare and not bothersome. States she is feelingfetal movement. Denies abdominal pain, vaginal bleeding, vaginal discharge or leakage of fluid. States she plans to continue to be seen with [facility] for this as she desires to deliver in [place]. BP 95/67 Pulse 98 Wt 128 lb 12.8 oz (58.4 kg) LMP 02/14/2024 BMI 19.02 kg/m Physical Exam General: NAD Heart: RR Lungs: normal respiratory effort Extremities: no edema Heart Tones: See OB flowsheet Pt is a 18 year old year old at 14w4d being followed in the high risk clinic for her history of prior delivery at 31 weeks with PPROM and IUGR. Nontoxic single thyroid nodule - Thyroid nodule noted in patient chart, but no documentation of imaging or how thyroid nodule was discovered - Patient has always had normal thyroid labs, most recently 04/08 - Asymptomatic - Does not require any additional workup Seizure (HCC) - Patient states she has a seizure history and her PCP had previously put her on Keppra, but never saw Neurology and no longer on medications - Last seizure in January, states it was related to her heart - Does not require additional workup, already has Cardio-OB appointment scheduled Hx of impaired glucose tolerance - Patient states she has T1DM, has never been on insulin - No documentation in chart of diagnosis/criteria - A1C 4.9 (04/08/24) - For normal glucose tolerance testing at 28 weeks History of delivery, currently - Patient with prior delivery with PPROM and IUGR at 31 weeks - Plan for serial cervical lengths at 16 weeks, will schedule appointment today Encounter for supervision of high risk young multigravida, antepartum - For anatomy ultrasound @ 18 weeks - Cervical length screening at 16 weeks, then q2 weeks afterwards - Growth scans q4 weeks - RTC in 4 weeks, can be scheduled with resident clinic per Dr Ramirez - Plan to see high risk again one time after Cardio-OB appointment in June, will determine resident clinic vs high risk at that time 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 Ramirez. Attending Note I evaluated the patient and personally participated in the can components. I agree with the resident's findings and plan as documented and have discussed the case and management of the patient's carewith the resident. Signature: Dr. Jose A Ramirez MD Date: May 26, 2024 Time: 2:43 PM Medical Decision Making: Problems: Low: 2+ self-limited or minor problems Data: Unique source(s) for external note(s) reviewed: 3+ Unique test result(s) reviewed: 3+ Independent interpretation of test from other physician/QHCP Risk: Moderate: Moderate risk from testing/treatment Medical Decision Making Level: 4 - Moderate documented in [facility] encounter[facility] Progress note* Quick Notes - Scott Hoang MD - 05/26/2024 1:19 PM EDT Images from the original note were not included. MATERNAL MEDICINE ROUTINE OB VISIT S: Rosy states she is feeling well today with no new concerns. She endorses intermittent cramps that she refers to as contractions but states they are rare and not bothersome. States she is feelingfetal movement. Denies abdominal pain, vaginal bleeding, vaginal discharge or leakage of fluid. States she plans to continue to be seen with [facility] for this as she desires to deliver in [place]. BP 95/67 Pulse 98 Wt 128 lb 12.8 oz (58.4 kg) LMP 02/14/2024 BMI 19.02 kg/m Physical Exam General: NAD Heart: RR Lungs: normal respiratory effort Extremities: no edema Heart Tones: See OB flowsheet Pt is a 18 year old year old at 14w4d being followed in the high risk clinic for her history of prior delivery at 31 weeks with PPROM and IUGR. Nontoxic single thyroid nodule - Thyroid nodule noted in patient chart, but no documentation of imaging or how thyroid nodule was discovered - Patient has always had normal thyroid labs, most recently 04/08 - Asymptomatic - Does not require any additional workup Seizure (HCC) - Patient states she has a seizure history and her PCP had previously put her on Keppra, but never saw Neurology and no longer on medications - Last seizure in January, states it was related to her heart - Does not require additional workup, already has Cardio-OB appointment scheduled Hx of impaired glucose tolerance - Patient states she has T1DM, has never been on insulin - No documentation in chart of diagnosis/criteria - A1C 4.9 (04/08/24) - For normal glucose tolerance testing at 28 weeks History of delivery, currently - Patient with prior delivery with PPROM and IUGR at 31 weeks - Plan for serial cervical lengths at 16 weeks, will schedule appointment today Encounter for supervision of high risk young multigravida, antepartum - For anatomy ultrasound @ 18 weeks - Cervical length screening at 16 weeks, then q2 weeks afterwards - Growth scans q4 weeks - RTC in 4 weeks, can be scheduled with resident clinic per Dr Ramirez - Plan to see high risk again one time after Cardio-OB appointment in June, will determine resident clinic vs high risk at that time 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 Ramirez. Attending Note I evaluated the patient and personally participated in the can components. I agree with the resident's findings and plan as documented and have discussed the case and management of the patient's carewith the resident. Signature: Dr. Jose A Ramirez MD Date: May 26, 2024 Time: 2:43 PM Medical Decision Making: Problems: Low: 2+ self-limited or minor problems Data: Unique source(s) for external note(s) reviewed: 3+ Unique test result(s) reviewed: 3+ Independent interpretation of test from other physician/QHCP Risk: Moderate: Moderate risk from testing/treatment Medical Decision Making Level: 4 - Moderate [facility]07-17[facility] Nurse Note* Hayden Walters LPN - 05/26/2024 1:03 PM EDT Movement? Flutters Vaginal Bleeding: NO Vaginal fluid leakage of fluid: NO Contractions: no contractions Edema: Negative Pt presents for SIVA no questions at this time. Hayden Walters LPN May 26, 2024 1:04 PM [facility]07-[facility] Nurse Note* Hayden Walters LPN - 05/26/2024 1:03 PM EDT Movement? Flutters Vaginal Bleeding: NO Vaginal fluid leakage of fluid: NO Contractions: no contractions Edema: Negative Pt presents for SIVA no questions at this time. Hayden Walters LPN May 26, 2024 1:04 PM documented in this encounterUc [facility] Center07-15-2024 NoteHNO ID: [id number] Author: MILDRED PETIT MD Service: Obstetrics Author Type: Resident Type: Progress Notes Filed: 05/24/2024 17:43 Note Text: Attestation signed by Mildred Petit MD at 05/24/2024 5:43 PM Attending Note I evaluated the patient and personally participated in the can components. I agree with the resident's findings and plan as documented and have discussed the case and management of the patient's care with the resident. Signature: Mildred Petit MD Date: May 24, 2024 Time: 5:42 PM Prior to discharge, the following Plan of care discussed with: Provider, RN, Patient, Dr. Petit. Discharge Vital signs: .BP 96/59 Pulse 95 Temp 37 ?C (98.6 ?F) (Temporal) Resp 16 Ht 175.3 cm (5' 9) Wt 59 kg (130 lb) LMP 02/14/2024 SpO2 98% BMI 19.20 kg/m? Follow-up: Appointments for Next 60 Days Date Time Provider Location Dept Phone 05/26/2024 1:00 PM HIGH RISK CLINIC [employer] DIRECTOR [facility] [phone] 06/03/2024 11:15 AM ALAMOMÓNICA Zonia Suazo [phone] 06/30/2024 11:00 AM JB2 ECHOCARDIOGRAM Mn J [facility] [phone] 06/30/2024 1:00 PM CARD MFM CLINICIAN Argelia A [facility] [phone] 06/30/2024 1:45 PM ALEJANDRINA WALL A [facility] [phone] 06/30/2024 1:45 PM MATTHIAS GONZALEZ A [facility] [phone] 07/15/2024 10:00 AM WHI TECH 1 [employer]CHOOL ATHLETIC DIRECTOR [facility] [phone] 07/15/2024 10:00 AM SCHOOL ATHLETIC DIRECTOR MFM MOB [facility] [phone] Precautions: Call the clinic for advisement if symptoms return New or adjusted home medications: Continue Tylenol prn for abdominal pain or headache Other recommendations/instructions: Recommend drinking 2-3L water per day with electrolytes to prevent lightheadedness and dizziness Discussed with primary Ob Provider/Group: [facility] En[facility], [facility]07[facility] NoteHNO ID: [id number] Author: MILDRED PETIT MD Service: Obstetrics Author Type: Resident Type: Progress Notes Filed: 05/24/2024 17:42 Note Text: Attestation signed by Mildred Petit MD at 05/24/2024 5:42 PM Attending Note I evaluated the patient and personally participated in the can components. I agree with the resident's findings and plan as documented and have discussed the case and management of the patient's care with the resident. 14wks with cramping and abd pain, FERNÁNDEZ. Appears to be dehydrated, will give IVF and tylenol and discharge home if symptoms improve. Plan of care discussed with: Provider, RN, Patient. Signature: Mildred Petit MD Date: May 24, 2024 Time: 5:41 PM OBSTETRICS OB ED PROGRESS NOTE SERVICE DATE: May 24, 2024 SERVICE TIME: 2:30 PM Subjective Patient's stated reason for arrival: feeling faint, dizzy, weak, contractions CHIEF COMPLAINT: general weakness HISTORY OF THE PRESENT ILLNESS: The patient is a 18 year old female, who is at 14w2d with an SCOTT of 11/20/2024, by Last Menstrual Period dating method. has been confirmed by ultrasound. Patient has had lightheadedness and diziness since this morning when she was lying in bed. It is worse with movement and better lying down. She has not taken any medication for it and prefers not to take medications. She also admits to a migraine that is consistent with her migraines for the past 3 weeks but has started since she arrived to the OB/ED. She also reports contractions that occur every 5 minutes and last one minute since this morning. She has abdominal pain worst underneath her ribs and worse on the left side. She feels like it is hard to take a deep breath and is taking more shallow breaths than usual for her. 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 Patient denies vaginal bleeding. PAST MEDICAL HISTORY Diagnosis Date Breast abscess of female right Brugada syndrome Chronic daily headache Complication of anesthesia Diabetes mellitus type I (HCC) Diabetes, gestational NEGATIVE MEDICAL HISTORY 11/10/2015 Normal Color Vision POTS (postural orthostatic tachycardia syndrome) Seizure (HCC) Thyroid disease Trauma PAST SURGICAL HISTORY Procedure Laterality Date DELIVERY ONLY 06/14/2022 L'SCOPE DX W/WO BRUSHINGS/WASHINGS 03/17/2024 Catarino to r/o ectopic MASTOTOMY W/EXPLORATION/DRAINAGE ABSCESS DEEP Right 08/18/2022 FAMILY HISTORY Problem Relation Age of Onset None Mother None Father Diabetes Paternal Grandfather OB History T0 L1 SAB5 IAB1 Ectopic0 Multiple0 Live Births1 REVIEW OF SYSTEMS: GENERAL: No weight loss, chills, or fevers RESPIRATORY: Admits to shortness of breath, Negative for cough CARDIOVASCULAR: Negative for chest pain or palpitations GI: Admits to nausea, negative for vomiting, or diarrhea : No dysuria, frequency or incontinence GLASS ENGRAVER: Negative for abnormal vaginal bleeding, abnormal vaginal discharge Objective LAST VITALS: Pulse: 95 BP: 102/68 Resp: 16 Temp: 37 ?C (98.6 ?F) SpO2: 98 % Height: 175.3 cm (5' 9) Weight: 59 kg (130 lb) BMI: 19.2 PHYSICAL EXAM: General appearance: Lying in dark room, slow cautious movements Neurologic: Decreased sensation to light touch C6-T1 on L compared to R, cranial nerves grossly intact, moving extremities and face symmetrically Lungs: Breathing comfortably on room air Heart: Appears well perfused RR Abdomen: Abdomen soft, mild tenderness to LLQ with small tense muscular mass to palpation Uterus: Soft, nontender Pelvic: Deferred ASSESSMENT: heart rate present: 158bpm by Doppler Ultrasound: N/A Diagnostic tests reviewed for today's visit: Most recent labs and imaging results. Assessment/Plan 18 year old EGA:14w2d presenting for general feelings of weakness and abdominal pain Active Hospital Problems Diagnosis Date Noted Headache in , second trimester 05/24/2024 Overview Note: - Patient reports chronic migraines, worse since arrival to OB/ED - Typically improves with Tylenol - Patient dislikes medications causing sedation and requested only tylenol - Tylenol 1000mg q6h prn for moderate pain - Recommend continue as needed Dizziness 05/24/2024 Overview Note: - EKG ordered in OB/ED - 1000mL LR IV bolus given Abdominal pain during in first trimester 04/15/2024 Overview Note: - Patient reports contraction-like lower abdominal pain that is recurring every 5 minutes - She reports pain underneath her ribs that makes it hard to take a deep breath - She has (more content not included)...[facility]07-09-2024 Telephone encounter Note* Telephone Encounter - Moy Lund RN - 05/18/2024 1:35 PM EDT Referring Physician: Ciara OB: Paras Seamer Operator: Mila Alamo Rosy Dominique is a 18 year old with an of Estimated Date of Delivery: 11/20/24 HISTORY OF PRESENT ILLNESS: History of toxoplasmosis, non toxic single thyroid,seizures, palpitations, TMJ, nontoxic goiter Cardio-OB NURSING INTAKE OB history: Prior c/s, prior small for gestation age Cardiac history: 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 Discussion of the services offered including support, education, coordination of care and appointment scheduling. My contact information was provided and she was encouraged to call with any questions or concerns. She stated that she plans to keep her [facility] care with [facility] and not [facility]. Offered to assist with scheduling appointments in the [facility] clinic. I explained the Cardio OB clinic and the purpose and function of the clinic. She is agreeable to an appointment on 06/30/24 at 1:45pm with Dr. Wall and . Also reviewed the multi-disciplinary team meetings in which patient's case will be discussed to optimize care planning. She is active on [employer]. I informed her that she will see an appointment time noted in [employer] for her echocardiogram. She is agreeable to the plan. . 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 Discussion of the services offered including support, education, coordination of care and appointment scheduling. My contact information was provided and she was encouraged to call with any questions or concerns. She stated that she plans to keep her [facility] care with [facility] and not [facility]. Offered to assist with scheduling appointments in the [facility] clinic. I explained the Cardio OB clinic and the purpose and function of the clinic. She is agreeable to an appointment on 06/30/24 at 1:45pm with Dr. Wall and . Also reviewed the multi-disciplinary team meetings in which patient's case will be discussed to optimize care planning. She is active on [employer]. I informed her that she will see an appointment time noted in [employer] for her echocardiogram. She is agreeable to the plan. . documented in this encounterU[facility] Center07-[facility]-2024 Telephone encounter Note * Telephone Encounter - Moy Lund RN - 05/17/2024 9:36 AM EDT VM left with my contact info for Rosy to return call to schedule with [facility]07-08-[facility] Miscellaneous Notes* Telephone Encounter - Moy Lund RN - 05/17/2024 9:36 AM EDT VM left with my contact info for Rosy to return call to schedule with [facility] documented in this encounterUc [facility] Center07-03-2024 Telephone encounter Note * Telephone Encounter - Thais Schroeder - 05/12/2024 1:06 PM EDT Spoke with patient, HROB appointment scheduled. Thais Schroeder May 12, 2024 1:06 PM [facility] Miscellaneous Notes* Telephone Encounter - Thais Schroeder - 05/12/2024 1:06 PM EDT Spoke with patient, HROB appointment scheduled. Thais Schroeder May 12, 2024 1:06 PM * Telephone Encounter - Thais Schroeder - 05/12/2024 12:04 PM EDT ----- Message from Marin Ramirez MD sent at 05/11/2024 7:02 PM EDT ----- Regarding: New High risk patient [place], Per Dr. Hassan, can you add this patient to high risk clinic within the next few weeks? She was seen by Dr. Ramirez, so she doesn't need an MFM initial consult, but if you can add her to high risk for SIVA in the next few weeks. She'll also need serial cervical length screenings started at 16 weeks for a hx of delivery per her chart review. Thanks. Marin ----- Message ----- From: Ashely Hassan MD Sent: 05/11/2024 9:50 AM EDT To: MD Bryce De La Paz, Can you add this patient to the resident high risk clinic. Seen by Dr. Ramirez and is planning on delivering in [place]. Ashely Zhang documented in this encounterUc [facility] Center07-03-2024 Telephone encounter Note * Telephone Encounter - Thais Schroeder - 05/12/2024 12:04 PM EDT ----- Message from Marin Ramirez MD sent at 05/11/2024 7:02 PM EDT ----- Regarding: New High risk patient [place], Per Dr. Hassan, can you add this patient to high risk clinic within the next few weeks? She was seen by Dr. Ramirez, so she doesn't need an MFM initial consult, but if you can add her to high risk for SIVA in the next few weeks. She'll also need serial cervical length screenings started at 16 weeks for a hx of delivery per her chart review. Thanks. Marin ----- Message ----- From: Ashely Hassan MD Sent: 05/11/2024 9:50 AM EDT To: Marin Ramirez MD Hey, Can you add this patient to the resident high risk clinic. Seen by Dr. Ramirez and is planning on delivering in [place]. Ashely Zhang [facility]07-02-[facility] Telephone encounter Note* Telephone Encounter - Barbie Orellana RN - 05/11/2024 11:49 AM EDT Message left for patient to return my call regarding, scheduling an appointment. Barbie Orellana RN [facility]07-02-2024 Miscellaneous Notes* Telephone Encounter - Barbie Orellana RN - 05/11/2024 11:49 AM EDT Message left for patient to return my call regarding, scheduling an appointment. Barbie Orellana RN * Telephone Encounter - aBrbie Orellana RN - 05/07/2024 12:28 PM EDT Message left for patient to return my call regarding, scheduling [facility] visit on 06/[address] Barbie Orellana RN documented in this encounterUc Medical Center06-28-2024 Telephone encounter Note * Telephone Encounter - Barbie Orellana RN - 05/07/2024 12:28 PM EDT Message left for patient to return my call regarding, scheduling [facility] visit on 06/[address] Barbie Orellana, RN [facility]-26-20[facility] Note* Addendum Note - Johnna Vaughan MD - 05/05/2024 3:23 PM EDTAddended by: JOHNNA VAUGHAN on: 05/05/2024 03:23 PM Modules accepted: Orders [facility]-26-20[facility] Miscellaneous Notes* Addendum Note - Johnna Vaughan MD - 05/05/2024 3:23 PM EDTAddended by: JOHNNA VAUGHAN on: 05/05/2024 03:23 PM Modules accepted: Orders * Quick Notes - Johnna Vaughan MD - 05/05/2024 3:16 PM EDT Had laparoscopy for r/o ectopic 03/17/24 and has some yellow drainage from the umbilical port > LLQ port. No fever or redness. On exam there is some yellow crusting without warmth or redness. Cleaned with diluted peroxide. Reviewed precautions. Has NT scheduled. Reordered urine culture as last wascontaminated. Johnna Vaughan MD documented in this encounterUc Medical Center06-26-2024 Progress note* Quick Notes - Johnna Vaughan MD - 05/05/2024 3:16 PM EDT Had laparoscopy for r/o ectopic 03/17/24 and has some yellow drainage from the umbilical port > LLQ port. No fever or redness. On exam there is some yellow crusting without warmth or redness. Cleaned with diluted peroxide. Reviewed precautions. Has NT scheduled. Reordered urine culture as last wascontaminated. Johnna Vaughan MD [facility] Telephone encounter Note* Telephone Encounter - Tre Luna - 05/05/2024 12:11 PM EDT 3rd Attempt Contact Made: left message on patient's voicemail asking patient to return my call [facility] Miscellaneous Notes* Telephone Encounter - Tre Luna - 05/05/2024 12:11 PM EDT 3rd Attempt Contact Made: left message on patient's voicemail asking patient to return my call * Telephone Encounter - Tre Luna - 05/04/2024 2:35 PM EDT 2nd Attempt Contact Made: sent MyChart letter * Telephone Encounter - Tre Luna - 05/04/2024 2:33 PM EDT Attempt #: 1 Contact Made: left message on patient's voicemail asking patient to return my call Please assist with rescheduling as follows: WHO should the patient schedule the appointment with? First provider available WHAT specific type of appointment is needed? Routine OB WHEN should the patient be seen? Comparable WHERE should the patient be seen? In Office Is there a day held for reschedules? n Contact [facility] FLOOR [facility] with questions documented in this encounterUc Medical Center06-25-2024 Telephone encounter Note * Telephone Encounter - Tre Luna - 05/04/2024 2:35 PM EDT 2nd Attempt Contact Made: sent MyChart letter [facility] Tele[facility] encounter Note* Telephone Encounter - Tre Luna - 05/04/2024 2:33 PM EDT Attempt #: 1 Contact Made: left message on patient's voicemail asking patient to return my call Please assist with rescheduling as follows: WHO should the patient schedule the appointment with? First provider available WHAT specific type of appointment is needed? Routine OB WHEN should the patient be seen? Comparable WHERE should the patient be seen? In Office Is there a day held for reschedules? n Contact [facility] FLOOR [facility] with questions T [facility]-06-[facility] Telephone encounter Note* Telephone Encounter - Moy Lund RN - 04/15/2024 10:52 AM EDT I called to schedule Rosy for a consult with MFM. She was agreeable to an appointment in the [place] office. During the conversion she stated that she is still having pain 9/10 in the left side that radiated to her back. She had a laparoscopic surgery at [facility] on 03/28 for a possible ectopic but wasfound to have an IUP. Pt was advised to come into the [facility] to be evaluated given her continued pain. [facility] notified. [facility] Miscellaneous Notes* Telephone Encounter - Moy Lund RN - 04/15/2024 10:52 AM EDT I called to schedule Rosy for a consult with MFM. She was agreeable to an appointment in the [place] office. During the conversion she stated that she is still having pain 9/10 in the left side that radiated to her back. She had a laparoscopic surgery at [facility] on 03/28 for a possible ectopic but wasfound to have an IUP. Pt was advised to come into the [facility] to be evaluated given her continued pain. [facility] notified. documented in this encounterUc Medical Center06-05-2024 Telephone encounter Note * Telephone Encounter - Fatmata Friend - 04/14/2024 2:22 PM EDT Referral to [facility] received. Patient read [employer] msg sent to her by this coordinator, but did not call to schedule. New notes from endocrinology report that patient does not have Type 1 diagnosis. Msg to [facility] team to assist with scheduling. [facility]06-05[facility]24 Miscellaneous Notes* Telephone Encounter - Fatmata Friend - 04/14/2024 2:22 PM EDT Referral to [facility] received. Patient read [employer] msg sent to her by this coordinator, but did not call to schedule. New notes from endocrinology report that patient does not have Type 1 diagnosis. Msg to [facility] team to assist with scheduling. [facility] Telephone encounter Note * Telephone Encounter - Tesfaye Henry DO - 04/14/2024 1:42 PM EDT Patient has HbA1c of 4.6% without any medications for diabetes (insulin) this would not be consistent with a diagnosis of diabetes. I would proceed with GDM screening at the appropriate time- however I don't see any evidence of overt/preexisting diabetes here KB [facility] Work Phone: [phone]) 617-214306-05-2024 Miscellaneous Notes* Telephone Encounter - Tesfaye Henry DO - 04/14/2024 1:42 PM EDT Patient has HbA1c of 4.6% without any medications for diabetes (insulin) this would not be consistent with a diagnosis of diabetes. I would proceed with GDM screening at the appropriate time- however I don't see any evidence of overt/preexisting diabetes here KB * Telephone Encounter - Kayla Marshall RN - 04/14/2024 11:27 AM EDT Frederic from Childbirth education called. Referral to see was placed. Patient saw [employer] Operator yesterday. Per his notes Patient reports she fluctuates from blood sugars in the 40s to having sugars as high as the 500s. Reports she was told at one point she was type 1 but there is no c-peptide or SAMI+ antibodies that Ican find. Frederic is not sure if Patient need to be seen by . Please call Patricia [phone] documented in [facility] Telephone encounter Note * Telephone Encounter - Kayla Marshall RN - 04/14/2024 11:27 AM EDT Frederic from Childbirth education called. Referral to see was placed. Patient saw [employer] Operator yesterday. Per his notes Patient reports she fluctuates from blood sugars in the 40s to having sugars as high as the 500s. Reports she was told at one point she was type 1 but there is no c-peptide or SAMI+ antibodies that Ican find. Frederic is not sure if Patient need to be seen by . Please call Patricia [phone] [facility] Telephone encounter Note* Telephone Encounter - Frederic Horton RN - 04/14/2024 10:23 AM EDT Call placed to Dr. Henry's office in [place]. Spoke to nurse Lilia. Request made for Lilia to review the nurse visit note by Camilla Navarro RN from yesterday andask Dr Henry to review as well. Request made to notify Frederic RN at [facility] OB-curb setter if another endocrine consult recommended with Margy. Referral order pended. Will forward to provider to sign if advised. Frederic Horton RN [facility] Miscellaneous Notes* Telephone Encounter - Frederic Horton RN - 04/14/2024 10:23 AM EDT Call placed to Dr. Henry's office in [place]. Spoke to nurse Lilia. Request made for Lilia to review the nurse visit note by Camilla Navarro RN from yesterday andask Dr Henry to review as well. Request made to notify Frederic CHAVEZ at [facility] OB-curb setter if another endocrine consult recommended with Margy. Referral order pended. Will forward to provider to sign if advised. Frederic Horton RN * Telephone Encounter - Frederic Horton RN - 04/13/2024 4:19 PM EDT Request rec'd from Madie PALACIO to call Dr [facility]. Please review/advise, should pt be seen by Dr Henry or ok to hold off on further consult at this time? Frederic Horton RN documented in this encounter[facility] Telephone encounter Note * Telephone Encounter - Frederic Horton RN - 04/13/2024 4:19 PM EDT Request rec'd from Madie PALACIO to call Dr Henry's office [facility] Please review/advise, should pt be seen by Dr Henry or ok to hold off on further consult at this time? Frederic Horton, RN [facility]06-04[facility]24 History of Present illness Narrative* Camilla Navarro, RN - 04/13/2024 3:03 PM EDT DIABETES SELF-MANAGEMENT EDUCATION AND SUPPORT Location: [place] Type of visit: In person individual Types of DSMES: Initial/Comprehensive (add to or update ADA spreadsheet) PATIENT'S MAIN CONCERN TODAY: Not sure they told me I had to. Support person present for education today: SO Cognitive ability: Alert and oriented Motivation to learn: Interested Learning barriers identified by educator: none Method of instruction: written and verbal INTERVENTIONS/TOPICS COVERED: Reviewed basic GDM monitoring. Patient reports she fluctuates from blood sugars in the 40s to having sugars as high as the 500s. Reports she was told at one point she was type 1 but there is no c-peptide or SAMI+ antibodies that I can find. No elevated sugars are visible in care everywhere or clinic system. Encouraged to follow up with her pcp. Reports she doesn't currently have an endo. Most recent glucose I could find from 2021 showed she was given a 50g load of glucose and her blood sugar fell from 97mg/dl to 77 mg/dL at that time. -Diabetes Pathophysiology: role of insulin in the body, role of glucose in the body, difference between Type 1 and Type 2, insulin resistance, relationship of glucose and insulin in the body, hepaticglucose release, and Type 2 diabetes risk factors. GDM basics -Monitoring: BG targets, rationale for HGM, and using a home glucose monitor -Healthy Eating: foods with carbs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 Use: current everyday user Substances: Nicotine Substance Use Topics Alcohol use: No Drug use: Never Objective BP 122/72 Pulse 106 Temp 37.2 C (98.9 F) Resp 16 Wt 58.3 kg (128 lb 8.5 oz) LMP 01/23/2024 (Exact Date) SpO2 99% Physical Exam Vitals reviewed. Constitutional: Appearance: Normal appearance. HENT: Head: Normocephalic and atraumatic. Right Ear: Tympanic membrane, ear canal and external ear normal. Left Ear: Tympanic membrane, ear canal and external ear normal. Nose: Congestion present. Mouth/Throat: Mouth: Mucous membranes are moist. Pharynx: Pharyngeal swelling and posterior oropharyngeal erythema present. No oropharyngeal exudateor uvula swelling. Tonsils: No tonsillar exudate or tonsillar abscesses. 1+ on the right. 1+ on the left. Cardiovascular: Rate and Rhythm: Normal rate and regular rhythm. Heart sounds: Normal heart sounds. Pulmonary: Effort: Pulmonary effort is normal. Breath sounds: Normal breath sounds. Musculoskeletal: Cervical back: Neck supple. Lymphadenopathy: Cervical: No cervical adenopathy. Skin: General: Skin is warm and dry. Neurological: Mental Status: She is alert. Assessment and Plan ASSESSMENT/PLAN: 1. Sore throat - ICD9: 462, ICD10: J02.9 - suspect viral - Group A strep molecular testing negative - Discussed supportive care treatment with fluids, rest and analgesia. - The patient should follow up in 3-5 days if symptoms persist or worsen. Patient sees ENT on Friday - STREP A MOLECULAR (POC) Praveen Gray PA-C [facility]24 NoteDiscussing plan of care with discussing pain meds with [facility]05-08-2024 Telephone encounter Note* Telephone Encounter - Beryl Arenas MD - 03/17/2024 5:07 PM EDT orders [id number] Miscellaneous Notes* Telephone Encounter - Beryl Arenas MD - 03/17/2024 5:07 PM EDT orders documented in this [facility]05-08-2024 NotePatient: Rosy Trip Procedure Summary Date: 03/17/24 Room / Location: [address] Operating Room Anesthesia Start: 1409 Anesthesia Stop: 1504 Procedure: DIAGNOSTIC LAPAROSCOPY (Abdomen) Diagnosis: Tubal ectopic , unspecified laterality, unspecified whether intrauterine present Surgeons: Beryl Arenas MD Responsible Provider: Brian Golden MD Anesthesia Type: general ASA Status: 3 Anesthesia Type: general Vitals Value Taken Time BP 101/62 03/17/24 1458 Temp 37.2 ?C (99 ?F) 03/17/24 1458 Pulse 85 03/17/24 1458 Resp 16 03/17/24 1458 SpO2 97 % 03/17/24 1458 Anesthesia Post Evaluation Patient location during evaluation: PACU Patient participation: complete - patient participated Level of consciousness: awake and alert Pain management: satisfactory to patient Airway patency: patent Dental Injury: no Cardiovascular status: acceptable, blood pressure returned to baseline and hemodynamically stable Respiratory status: acceptable and spontaneous ventilation Hydration status: euvolemic Nausea/Vomiting: controlled No notable events documented. Patient can be discharged once all PACU criteria has been met.[facility]05-08-[facility] NotePatient: Rosy Trip Procedure Summary Date: 03/17/24 Room / Location: [address] Operating Room Anesthesia Start: 1408 Anesthesia Stop: 1504 Procedure: DIAGNOSTIC LAPAROSCOPY (Abdomen) Diagnosis: Tubal ectopic , unspecified laterality, unspecified whether intrauterine present Surgeons: Beryl Arenas MD Responsible Provider: Brian Golden MD Anesthesia Type: general ASA Status: 3 Anesthesia Type: general Vitals Value Taken Time BP 101/62 03/17/24 1458 Temp 37.2 ?C (99 ?F) 03/17/24 1458 Pulse 85 03/17/24 1458 Resp 16 03/17/24 1458 SpO2 97 % 03/17/24 1458 Anesthesia Post Evaluation Patient location during evaluation: PACU Patient participation: complete - patient participated Level of consciousness: awake and alert Pain management: satisfactory to patient Multimodal analgesia pain management approach Airway patency: patent Two or more strategies used to mitigate risk of obstructive sleep apnea Cardiovascular status: acceptable and hemodynamically stable Respiratory status: acceptable Hydration status: acceptable No notable events documented. MIPS #430 PONV Patient received an inhalational anesthetic (4554F) Patient does not exhibit three or more risk factors for PONV (X0430)) MIPS # 424 Perioperative Temperature Management Anesthesia time was 60 minutes or longer (4255F) Anesthesai administered was General (inhalational or TIVA) or Neuraxial block (X0424) At least one body temperature greater than 95.8F/35.5C achieved within the 30 mins immediately prior to or the 15 minutes immediately following anesthesia end time (G9771) MIPS #477 Multimodal Pain Management Emergent case Exlusion- Stop here (M1142) MIPS #404 Anesthesiology Smoking Abstinence The patient is not a current smoker (e.g. cigarette, cigar, pipe, e-cigarette/vaping/marijuana) If no stop here (XX404) I completed my handoff to the receiving clinician during which we: 1. Identified the patient 2. Identified the responsible provider 3. Reviewed the pertinent medical history 4. Discussed the surgical course 5. Reviewed intra-op anesthesia management and issues during anesthesia 6. Set expectations for post-procedure period 7. Allowed opportunity for questions and acknowledgement of understanding.[facility]05-08-[facility] Miscellaneous Notes* Perioperative Nursing Note - Anna Simon RN - 03/17/2024 4:54 PM EDT Instructions and rx given with verbalized understanding pt and family tolerated clear liquid and cracker well up to bathroom with assist tolerated activity well -voided without problem * Perioperative Nursing Note - Anna Simon RN - 03/17/2024 3:53 PM EDT Discussing plan of care with discussing pain meds with anesthesia documented in this [facility]05-08-2024 Note* Perioperative Nursing Note - Anna Simon RN - 03/17/2024 4:54 PM EDT Instructions and rx given with verbalized understanding pt and family tolerated clear liquid and cracker well up to bathroom with assist tolerated activity well -voided without problem [facility] [id number] Note* Perioperative Nursing Note - Anna Simon RN - 03/17/2024 4:54 PM EDT Instructions and rx given with verbalized understanding pt and family tolerated clear liquid and cracker well up to bathroom with assist tolerated activity well -voided without problem [facility] [id number] NoteAirway Date/Time: 03/17/2024 2:15 PM Urgency: scheduled Airway not difficult General Information and Staff Patient location during procedure: Procedural Resident/POWER SHOVEL OPERATOR: Florentin Sewell APRN - POWER SHOVEL OPERATOR Performed: POWER SHOVEL OPERATOR Indications and Patient Condition Indications for airway management: anesthesia and airway protection Sedation level: Asleep Preoxygenated: yes Patient position: sniffing Mask difficulty assessment: 1 - vent by mask Final Airway Details Final airway type: endotracheal airway Successful airway: ETT Cuffed: yes Successful intubation technique: direct laryngoscopy Endotracheal tube insertion site: oral Blade: Gary Blade size: #3 ETT size (mm): 7.0 Cormack-Lehane Classification: grade I - full view of glottis Placement verified by: chest auscultation and capnometry Measured from: lips ETT to lips (cm): 21 Number of attempts at approach: [address], [place] [id number] Procedure anesthesia Narrative* Procedure Summary Procedure Name Responsible Anesthesiologist Anesthesia Start Time Anesthesia Stop Time DIAGNOSTIC LAPAROSCOPY (Abdomen) Brian Golden MD 03/17/24 1409 03/17/24 1504 Events Date Time Event Comment 03/17/2024 1231 1409 An Start 1409 An Start Data 1409 In Room 1411 An Induction The patient was reevaluated immediately before moderate or deep sedation use and before anesthesia induction. 1414 An Intubation 1414 Anesthesia Ready 1435 Proc Start 1451 Proc Fin 1454 An Extubation - Spontaneous ventilation - Patient suctioned - Airway removed without difficulty - Spontaneous ventilation maintained 1456 an stop data 1456 Out of Room 1504 An Stop Meds Name Total propofol (Diprivan) injection 10 mg/mL 2 00 mg rocuronium (ZeMuron) 50 mg/5 mL injectio n 50 mg esmolol (Brevibloc) 30 mg dexmedetomidine (Precedex) 40 mcg in sod ium chloride 0.9 % 10 mL injection 20 mcg ondansetron (Zofran) 2 mg/mL injection 4 mg sugammadex (Bridion) 200 mg/2 mL injecti on 200 mg sodium chloride 0.9 % infusion 1,000 mL * Agents Name O2 Air Isoflurane * Blood No blood administrations on file. Lines, Drains, and Airways Type Details Placement Removal Wound/Incision 03/17/24; Incision; Umbilicus 03/17/24 0000 by Sasha Jiang RN Peripheral IV Placement Date: 07/03; Placement Time: 0646; Catheter Size: 20 G; Orientation: Right; Location: Antecubital; Site Prep: Chlorhexidine; Inserted by: cory; Insertion Attempts: 2; Difficult Venous Access? No; Removal Date: 03/17/24; Removal Time: 1641 03/17/24 0646 by Yady Bailey LPN 03/17/24 1641 by Anna Simon RN ETT Placement Date: 07/03; Placement Time: 1415 (created via procedure documentation); Type: ETT - single; Single Lumen Tube Size: 7 mm; Cuffed: Yes; Location: Oral; Placement Verification: Auscultation, Capnometry; Removal Date: 03/17/24; Removal Time: 1456 03/17/24 1415 by SUSAN Stauffer CRNA 03/17/24 1456 by SUSAN Stauffer CRNA documented in this encounter [facility] [id number] Note* Perioperative Nursing Note - Anna Simon RN - 03/17/2024 3:53 PM EDT Discussing plan of care with discussing pain meds with anesthesia [facility] HospitalQtwamv17-17-4525 Note* Perioperative Nursing Note - Anna Simon RN - 03/17/2024 3:53 PM EDT Discussing plan of care with discussing pain meds with anesthesia [facility] [id number] Note* Anesthesia Discharge Note - SUSAN Stauffer CRNA - 03/17/2024 3:04 PM EDT Patient: Rosy Dominique Procedure Summary Date: 03/17/24 Room / Location: [address] Operating Room Anesthesia Start: 1409 Anesthesia Stop: 1504 Procedure: DIAGNOSTIC LAPAROSCOPY (Abdomen) Diagnosis: Tubal ectopic , unspecified laterality, unspecified whether intrauterine present Surgeons: Beryl Arenas MD Responsible Provider: Brian Golden MD Anesthesia Type: general ASA Status: 3 Anesthesia Type: general Vitals Value Taken Time BP 101/62 03/17/24 1458 Temp 37.2 C (99 F) 03/17/24 1458 Pulse 85 03/17/24 1458 Resp 16 03/17/24 1458 SpO2 97 % 03/17/24 1458 Anesthesia Post Evaluation Patient location during evaluation: PACU Patient participation: complete - patient participated Level of consciousness: awake and alert Pain management: satisfactory to patient Airway patency: patent Dental Injury: no Cardiovascular status: acceptable, blood pressure returned to baseline and hemodynamically stable Respiratory status: acceptable and spontaneous ventilation Hydration status: euvolemic Nausea/Vomiting: controlled No notable events documented. Patient can be discharged once all PACU criteria has been met. [facility] [id number] Anesthesiology Postoperative evaluation and management note* Anesthesia Postprocedure Evaluation - SUSAN Stauffer CRNA - 03/17/2024 3:04 PM EDT Patient: Rosy Dominique Procedure Summary Date: 03/17/24 Room / Location: [address] Operating Room Anesthesia Start: 1409 Anesthesia Stop: 1504 Procedure: DIAGNOSTIC LAPAROSCOPY (Abdomen) Diagnosis: Tubal ectopic , unspecified laterality, unspecified whether intrauterine present Surgeons: Beryl Arenas MD Responsible Provider: Brian Golden MD Anesthesia Type: general ASA Status: 3 Anesthesia Type: general Vitals Value Taken Time BP 101/62 03/17/24 1458 Temp 37.2 C (99 F) 03/17/24 1458 Pulse 85 03/17/24 1458 Resp 16 03/17/24 1458 SpO2 97 % 03/17/24 1458 Anesthesia Post Evaluation Patient location during evaluation: PACU Patient participation: complete - patient participated Level of consciousness: awake and alert Pain management: satisfactory to patient Multimodal analgesia pain management approach Airway patency: patent Two or more strategies used to mitigate risk of obstructive sleep apnea Cardiovascular status: acceptable and hemodynamically stable Respiratory status: acceptable Hydration status: acceptable No notable events documented. MIPS #430 PONV Patient received an inhalational anesthetic (4554F) Patient does not exhibit three or more risk factors for PONV (X0430)) MIPS # 424 Perioperative Temperature Management Anesthesia time was 60 minutes or longer (4255F) Anesthesai administered was General (inhalational or TIVA) or Neuraxial block (X0424) At least one body temperature greater than 95.8F/35.5C achieved within the 30 mins immediately prior to or the 15 minutes immediately following anesthesia end time (G9771) MIPS #477 Multimodal Pain Management Emergent case Exlusion- Stop here (M1142) MIPS #404 Anesthesiology Smoking Abstinence The patient is not a current smoker (e.g. cigarette, cigar, pipe, e- cigarette/vaping/marijuana) If no stop here (XX404) I completed my handoff to the receiving clinician during which we: 1. Identified the patient 2. Identified the responsible provider 3. Reviewed the pertinent medical history 4. Discussed the surgical course 5. Reviewed intra-op anesthesia management and issues during anesthesia 6. Set expectations for post-procedure period 7. Allowed opportunity for questions and acknowledgement of understanding. [employer] Phone: 1(883) 460-180305-08-2024 Miscellaneous Notes* Anesthesia Discharge Note - SUSAN Stauffer CRNA - 03/17/2024 3:04 PM EDT Patient: Rosy Portis Procedure Summary Date: 03/17/24 Room / Location: [address] Operating Room Anesthesia Start: 1409 Anesthesia Stop: 1504 Procedure: DIAGNOSTIC LAPAROSCOPY (Abdomen) Diagnosis: Tubal ectopic , unspecified laterality, unspecified whether intrauterine present Surgeons: Beryl Arenas MD Responsible Provider: Brian Golden MD Anesthesia Type: general ASA Status: 3 Anesthesia Type: general Vitals Value Taken Time BP 101/62 03/17/24 1458 Temp 37.2 C (99 F) 03/17/24 1458 Pulse 85 03/17/24 1458 Resp 16 03/17/24 1458 SpO2 97 % 03/17/24 1458 Anesthesia Post Evaluation Patient location during evaluation: PACU Patient participation: complete - patient participated Level of consciousness: awake and alert Pain management: satisfactory to patient Airway patency: patent Dental Injury: no Cardiovascular status: acceptable, blood pressure returned to baseline and hemodynamically stable Respiratory status: acceptable and spontaneous ventilation Hydration status: euvolemic Nausea/Vomiting: controlled No notable events documented. Patient can be discharged once all PACU criteria has been met. documented in this [place] [address]55-08-2024 Surgical operation note* Anesthesia Postprocedure Evaluation - SUSAN Stauffer CRNA - 03/17/2024 3:04 PM EDT Patient: Rosy Dominique Procedure Summary Date: 03/17/24 Room / Location: [address] Operating Room Anesthesia Start: 140 Anesthesia Stop: 150 Procedure: DIAGNOSTIC LAPAROSCOPY (Abdomen) Diagnosis: Tubal ectopic , unspecified laterality, unspecified whether intrauterine present Surgeons: Beryl Arenas MD Responsible Provider: Brian Golden MD Anesthesia Type: general ASA Status: 3 Anesthesia Type: general Vitals Value Taken Time BP 101/62 03/17/24 1458 Temp 37.2 C (99 F) 03/17/24 1458 Pulse 85 03/17/24 1458 Resp 16 03/17/24 1458 SpO2 97 % 03/17/24 1458 Anesthesia Post Evaluation Patient location during evaluation: PACU Patient participation: complete - patient participated Level of consciousness: awake and alert Pain management: satisfactory to patient Multimodal analgesia pain management approach Airway patency: patent Two or more strategies used to mitigate risk of obstructive sleep apnea Cardiovascular status: acceptable and hemodynamically stable Respiratory status: acceptable Hydration status: acceptable No notable events documented. MIPS #430 PONV Patient received an inhalational anesthetic (4554F) Patient does not exhibit three or more risk factors for PONV (X0430)) MIPS # 424 Perioperative Temperature Management Anesthesia time was 60 minutes or longer (4255F) Anesthesai administered was General (inhalational or TIVA) or Neuraxial block (X0424) At least one body temperature greater than 95.8F/35.5C achieved within the 30 mins immediately prior to or the 15 minutes immediately following anesthesia end time (G9771) MIPS #477 Multimodal Pain Management Emergent case Exlusion- Stop here (M1142) MIPS #404 Anesthesiology Smoking Abstinence The patient is not a current smoker (e.g. cigarette, cigar, pipe, e- cigarette/vaping/marijuana) If no stop here (XX404) I completed my handoff to the receiving clinician during which we: 1. Identified the patient 2. Identified the responsible provider 3. Reviewed the pertinent medical history 4. Discussed the surgical course 5. Reviewed intra-op anesthesia management and issues during anesthesia 6. Set expectations for post-procedure period 7. Allowed opportunity for questions and acknowledgement of understanding. * Anesthesia Procedure Notes - SUSAN Stauffer CRNA - 03/17/2024 2:24 PM EDT Associated Order(s): Airway Airway Date/Time: 03/17/2024 2:15 PM Urgency: scheduled Airway not difficult General Information and Staff Patient location during procedure: Procedural Resident/POWER SHOVEL OPERATOR: SUSAN Stauffer CRNA Performed: POWER SHOVEL OPERATOR Indications and Patient Condition Indications for airway management: anesthesia and airway protection Sedation level: Asleep Preoxygenated: yes Patient position: sniffing Mask difficulty assessment: 1 - vent by mask Final Airway Details Final airway type: endotracheal airway Successful airway: ETT Cuffed: yes Successful intubation technique: direct laryngoscopy Endotracheal tube insertion site: oral Blade: Gary Blade size: #3 ETT size (mm): 7.0 Cormack-Lehane Classification: grade I - full view of glottis Placement verified by: chest auscultation and capnometry Measured from: lips ETT to lips (cm): 21 Number of attempts at approach: 1 * Anesthesia Preprocedure Evaluation - SUSAN Stauffer CRNA - 03/17/2024 12:25 PM EDT Patient: Rosy Dominique Procedure Information Date/Time: 03/17/241399 Procedure: DIAGNOSTIC LAPAROSCOPY, POSSIBLE SALPINGECTOMY, SALPINGOSTOMY (Abdomen) Location: [address] Operating Room Surgeons: Beryl Arenas MD Relevant Problems No relevant active problems Clinical information reviewed: Tobacco Allergies Meds Med Hx Surg Hx OB Status Fam Hx Soc Hx Physical Exam Airway Mallampati: II TM distance: >3 FB Neck ROM: full Mouth Open: normal Cardiovascular Dental Pulmonary Abdominal Anesthesia Plan patient is NPO appropriate Any family history or previous problems with anesthesia no ASA 3 general Any family history or previous problems with anesthesia no The patient is not a current smoker. Anesthetic plan and risks discussed with patient. Anesthesia Can Considerations Patient states that she has a seizure hx and describes what sounds like Petit mal seizures. Denies grand mal symptoms. Patient states that neurologist told her that she could take her Keppra as needed. Her last keppra dose was four days ago. We will give her Keppra today. The patient has Brugada Syndrome and Cardiomyopathy listed as medical problems. She had a syncope work up and was considered to have POTS. She had a normal echo in the past and was seen in the [facility] 2022 with a normal EKG with RSR prime variant. Genetic testing was not conclusive for Brugada syndrome but she have two non-specific variants. She was seen by her Managed Care Specialist in September 2023 and he noted that she should not have difficulty with anesthesia and was ok to proceed (at that time). Patient lists multiple allergies, including local anesthetics. LA allergies are rare to the extent that there are almost no reports in the world literature documenting true allergies. The patient also lists Fentanyl as an allergy because she had to be intubated after receiving it. She had a bupivicaine anesthetic for her but states that she was given a lot of benadryl afterward. She does not know what allergic reaction she had to Dexamethasone but says she was told by a doctor that she was allergic to it. All of these reactions happened at [facility] or [facility]. Will proceed with propofol. Will NOT do tap block because of the Dexamethasone hx. Will avoid LA's in general because of the hx of Brugada syndrome. Discussed this with the patient. Additional Equipment Requests documented in this [facility]05-08-2024 NotePatient: Rosy Dominique Procedure Information Date/Time: 03/17/24 1400 Procedure: DIAGNOSTIC LAPAROSCOPY, POSSIBLE SALPINGECTOMY, SALPINGOSTOMY (Abdomen) Location: [address] Operating Room Surgeons: Beryl Arenas MD Relevant Problems No relevant active problems Clinical information reviewed: Tobacco Allergies Meds Med Hx Surg Hx OB Status Fam Hx Soc Hx Physical Exam Airway Mallampati: II TM distance: >3 FB Neck ROM: full Mouth Open: normal Cardiovascular Dental Pulmonary Abdominal Anesthesia Plan patient is NPO appropriate Any family history or previous problems with anesthesia no ASA 3 general Any family history or previous problems with anesthesia no The patient is not a current smoker. Anesthetic plan and risks discussed with patient. Anesthesia Can Considerations Patient states that she has a seizure hx and describes what sounds like Petit mal seizures. Denies grand mal symptoms. Patient states that neurologist told her that she could take her Keppra as needed. Her last keppra dose was four days ago. We will give her Keppra today. The patient has Brugada Syndrome and Cardiomyopathy listed as medical problems. She had a syncope work up and was considered to have POTS. She had a normal echo in the past and was seen in the ER in 2022 with a normal EKG with RSR prime variant. Genetic testing was not conclusive for Brugada syndrome but she have two non-specific variants. She was seen by her Managed Care Specialist in September 2023 and he noted that she should not have difficulty with anesthesia and was ok to proceed (at that time). Patient lists multiple allergies, including local anesthetics. LA allergies are rare to the extent that there are almost no reports in the world literature documenting true allergies. The patient also lists Fentanyl as an allergy because she had to be intubated after receiving it. She had a bupivicaine anesthetic for her but states that she was given a lot of benadryl afterward. She does not know what allergic reaction she had to Dexamethasone but says she was told by a doctor that she was allergic to it. All of these reactions happened at [facility] or [facility]. Will proceed with propofol. Will NOT do tap block because of the Dexamethasone hx. Will avoid LA's in general because of the hx of Brugada syndrome. Discussed this with the patient. [facility]iology procedure note* Anesthesia Procedure Notes - SUSAN Stauffer CRNA - 03/17/2024 2:24 PM EDTAssociated Order(s): Airway Airway Date/Time: 03/17/2024 2:15 PM Urgency: scheduled Airway not difficult General Information and Staff Patient location during procedure: Procedural Resident/POWER SHOVEL OPERATOR: SUSAN Stauffer CRNA Performed: POWER SHOVEL OPERATOR Indications and Patient Condition Indications for airway management: anesthesia and airway protection Sedation level: Asleep Preoxygenated: yes Patient position: sniffing Mask difficulty assessment: 1 - vent by mask Final Airway Details Final airway type: endotracheal airway Successful airway: ETT Cuffed: yes Successful intubation technique: direct laryngoscopy Endotracheal tube insertion site: oral Blade: Gary Blade size: #3 ETT size (mm): 7.0 Cormack-Lehane Classification: grade I - full view of glottis Placement verified by: chest auscultation and capnometry Measured from: lips ETT to lips (cm): 21 Number of attempts at approach: 1 [id number] Anesthesiology Preoperative evaluation and management note* Anesthesia Preprocedure Evaluation - SUSAN Stauffer CRNA - 03/17/2024 12:25 PM EDT Patient: Rosy Dominique Procedure Information Date/Time: 03/17/241399 Procedure: DIAGNOSTIC LAPAROSCOPY, POSSIBLE SALPINGECTOMY, SALPINGOSTOMY (Abdomen) Location: [address] Operating Room Surgeons: Beryl Arenas MD Relevant Problems No relevant active problems Clinical information reviewed: Tobacco Allergies Meds Med Hx Surg Hx OB Status Fam Hx Soc Hx Physical Exam Airway Mallampati: II TM distance: >3 FB Neck ROM: full Mouth Open: normal Cardiovascular Dental Pulmonary Abdominal Anesthesia Plan patient is NPO appropriate Any family history or previous problems with anesthesia no ASA 3 general Any family history or previous problems with anesthesia no The patient is not a current smoker. Anesthetic plan and risks discussed with patient. Anesthesia Can Considerations Patient states that she has a seizure hx and describes what sounds like Petit mal seizures. Denies grand mal symptoms. Patient states that neurologist told her that she could take her Keppra as needed. Her last keppra dose was four days ago. We will give her Keppra today. The patient has Brugada Syndrome and Cardiomyopathy listed as medical problems. She had a syncope work up and was considered to have POTS. She had a normal echo in the past and was seen in the [facility] 2022 with a normal EKG with RSR prime variant. Genetic testing was not conclusive for Brugada syndrome but she have two non-specific variants. She was seen by her Managed Care Specialist in September 2023 and he noted that she should not have difficulty with anesthesia and was ok to proceed (at that time). Patient lists multiple allergies, including local anesthetics. LA allergies are rare to the extent that there are almost no reports in the world literature documenting true allergies. The patient also lists Fentanyl as an allergy because she had to be intubated after receiving it. She had a bupivicaine anesthetic for her but states that she was given a lot of benadryl afterward. She does not know what allergic reaction she had to Dexamethasone but says she was told by a doctor that she was allergic to it. All of these reactions happened at [facility] or [facility]. Will proceed with propofol. Will NOT do tap block because of the Dexamethasone hx. Will avoid LA's in general because of the hx of Brugada syndrome. Discussed this with the patient. Additional Equipment Requests [facility] [id number] Consult note* Beryl Arenas MD - 03/17/2024 9:12 AM EDT Reason For Consult Pelvic pain. + History Of Present Illness Rosy Dominique is a 18 y.o. female presenting with intermittently severe left lower quad pelvicpain worsening over last few days. +hcg. No vaginal bleeding. lmp 02/14/24. Menses usually regular. +nausea and vomiting. No fever. given rx for uti keflex Past Medical History She has a past medical history of Brugada syndrome, Cardiomyopathy (HCC), and Seizure (HCC). Surgical History She has a past surgical history that includes section (07/04/2022) and Abscess drainage (Right, 08/18/2022). Social History She reports that she has never smoked. She has never used smokeless tobacco. She reports that she does not drink alcohol and does not use drugs. Allergies Amoxicillin, Black walnut flavor, Bupivacaine, Chloroprocaine, Coconut fatty acids, Fentanyl, Ketorolac, Lidocaine, Vancomycin, Dexamethasone, Latex, and Hydrocodone-acetaminophen Medications (Not in a hospital admission) Review of Systems See hpi Physical Exam Alert nad Normal respirations Normal heart rate Abd soft, +tenderness left lower quad Ext nontender no edema Last Recorded Vitals Blood pressure 104/75, pulse 82, temperature 36.8 C (98.2 F), temperature source Tympanic, resp. rate 14, height 5' 9 (1.753 m), weight 128 lb (58.1 kg), SpO2 98%. Relevant Results Hcg 52 cbc wnl Ulsd Left ovarian cyst 2 cm no iup small free fluid Assessment/Plan Principal Problem: Left lower quadrant pain Pelvic pain; of unknown location Pt was counseled on options and she wants to proceed with diagnostic laparoscopy possible salpingectomy/salpingostomy. She understands the risks of infection, bleeding, blood clots, damage to internal organs and risk with anesthesia. She was counseled on pre and post op care. All questions answered. [id number] Consult note* Beryl Arenas MD - 03/17/2024 9:12 AM EDT Reason For Consult Pelvic pain. + History Of Present Illness Rosy Dominique is a 18 y.o. female presenting with intermittently severe left lower quad pelvicpain worsening over last few days. +hcg. No vaginal bleeding. lmp 02/14/24. Menses usually regular. +nausea and vomiting. No fever. given rx for uti keflex Past Medical History She has a past medical history of Brugada syndrome, Cardiomyopathy (HCC), and Seizure (HCC). Surgical History She has a past surgical history that includes section (07/04/2022) and Abscess drainage (Right, 08/18/2022). Social History She reports that she has never smoked. She has never used smokeless tobacco. She reports that she does not drink alcohol and does not use drugs. Allergies Amoxicillin, Black walnut flavor, Bupivacaine, Chloroprocaine, Coconut fatty acids, Fentanyl, Ketorolac, Lidocaine, Vancomycin, Dexamethasone, Latex, and Hydrocodone-acetaminophen Medications (Not in a hospital admission) Review of Systems See hpi Physical Exam Alert nad Normal respirations Normal heart rate Abd soft, +tenderness left lower quad Ext nontender no edema Last Recorded Vitals Blood pressure 104/75, pulse 82, temperature 36.8 C (98.2 F), temperature source Tympanic, resp. rate 14, height 5' 9 (1.753 m), weight 128 lb (58.1 kg), SpO2 98%. Relevant Results Hcg 52 cbc wnl Ulsd Left ovarian cyst 2 cm no iup small free fluid Assessment/Plan Principal Problem: Left lower quadrant pain Pelvic pain; of unknown location Pt was counseled on options and she wants to proceed with diagnostic laparoscopy possible salpingectomy/salpingostomy. She understands the risks of infection, bleeding, blood clots, damage to internal organs and risk with anesthesia. She was counseled on pre and post op care. All questions answered. documented in this [facility]05-08-2024 Emergency department Note* Bc Vazquez RN - 03/17/2024 3:10 AM EDT Reviewed transfer instructions and patient verbalized understanding. Patient verbalized understanding to go to [facility] within the hour. transfer packet provided to patient. No further questions. Patient ambulated out of ED with strong steady gait. Respirations even and non labored. No acute distress. A&O x4. Bc Vazquez RN 03/17/240 [id number] Emergency department Note* Bc Vazquez RN - 03/17/2024 3:10 AM EDT Reviewed transfer instructions and patient verbalized understanding. Patient verbalized understanding to go to [facility] within the hour. transfer packet provided to patient. No further questions. Patient ambulated out of ED with strong steady gait. Respirations even and non labored. No acute distress. A&O x4. Bc Vazquez RN 03/17/24309 * Bc Vazquez RN - 03/17/2024 2:36 AM EDT Patient ambulated to restroom independently Bc Vazquez RN 03/17/24 0237 * Jarek Ambrose DO - 03/17/2024 12:03 AM EDT Emergency Department Encounter [facility] ED Patient: Rosy Dominique : 2005 Date of Evaluation: 03/17/2024 ED Provider: Jarek Ambrose DO Chief Complaint Chief Complaint Patient presents with Abdominal Pain Back Pain RAYMOND Dominique is a 18 y.o. female who presents to the emergency department complaining of left lower quadrant pain, back pain. Patient reports symptoms that been present, developing over the last week. This is worsened today. Has not taken any medication for the pain. Patient approximately 4 weeks . This is her eighth with 1 living child at home, history of 6 miscarriages. She did undergo hCG testing earlier in the day with a quantitative hCG in the 40s. This was ordered due to her being a high risk . Denies vaginal bleeding. Denies fevers or chills. States that her last menstrual cycle was in early February. Additional history obtained from : n/a Barriers to obtaining history from patient: n/a ROS: Review of Systems completed as follows: (Bold = positive, Not bold = negative) GENERAL: fevers, chills, malaise ENT: runny nose, congestion, sore throat, ear pain NEURO: weakness, numbness of tingling, headache CARDIOVASCULAR: chest pain, syncope PULMONARY: shortness of breath, cough, wheezing GASTROINTESTINAL: nausea, vomiting, abdominal pain, diarrhea, constipation, MUSCULOSKELETAL: pain GENITAL/URINARY: dysuria, hematuria, increased urinary frequency, hesitancy, flank pain SKIN: rash, lesions, wound Past History Past Medical History: Diagnosis Date Brugada syndrome Cardiomyopathy (HCC) Seizure (HCC) last seizure -2023 Past Surgical History: Procedure Laterality Date ABSCESS DRAINAGE Right 08/18/2022 breast SECTION (HISTORICAL) 07/04/2022 Social History Socioeconomic History Marital status: Single Tobacco Use Smoking status: Never Smokeless tobacco: Never Vaping Use Vaping Use: Former Substance and Sexual Activity Alcohol use: Never Drug use: Never I have reviewed the history above as provided by nursing notes. Medications/Allergies Previous Medications LEVETIRACETAM (KEPPRA) 500 MG TABLET Take 500 mg by mouth in the morning and 500 mg in the evening. [id number]-FISH OIL ( + COMPLETE MULTI PO) Take by mouth. Allergies Allergen Reactions Amoxicillin Anaphylaxis, Itching, Rash and Nausea And Vomiting Black [place] Flavor Anaphylaxis Bupivacaine Itching, Rash and Shortness of breath Chloroprocaine Shortness of breath Coconut Fatty Acids Anaphylaxis Fentanyl Anaphylaxis Ketorolac Anaphylaxis Lidocaine Shortness of breath Vancomycin Anaphylaxis and Rash Dexamethasone Itching and Rash Latex Angioedema, Rash and Hives Hydrocodone-Acetaminophen Rash I have reviewed the history above as provided by nursing notes. Physical Exam ED Triage Vitals [03/17/24 0007] Temp Heart Rate Resp BP 36.6 C (97.9 F) 97 14 127/89 SpO2 Temp Source Heart Rate Source Patient Position 100 % Oral Monitor Sitting BP Location FiO2 (%) Right arm -- GENERAL: The patient appears nourished and normally developed. Vital signs as documented. EYES: PERRL. No scleral icterus or orbital trauma noted. HEENT: Mucous membranes moist. Nares patent without copious rhinorrhea. LUNGS: Lungs are clear to auscultation, without any respiratory distress. CARDIAC: Rhythm is regular. No murmur appreciated ABDOMEN: Tenderness to palpation the left lower quadrant, soft, with no obvious masses, and no peritoneal signs. EXTREMITIES: Non edematous, with no obvious deformities. SKIN: Good color, with no significant rashes. No pallor. NEURO: No obvious neurological deficits, normal sensation and strength bilaterally. Diagnostics Labs: Results for orders placed or performed during the hospital encounter of 03/17/24 CBC auto differential Result Value Ref Range Auto WBC 8.6 3.6 - 10.7 10*3/uL RBC 4.42 3.80 - 5.20 10*6/uL Hemoglobin 12.5 11.7 - 16.0 g/dL Hematocrit 37.2 35.0 - 47.0 % MCV 84.2 77.0 - 99.0 fL MCH 28.3 26.0 - 34.0 pg MCHC 33.6 30.5 - 36.0 % RDW 12.6 11.5 - 15.0 % Platelets 266 140 - 440 10*3/uL MPV 10.7 9.0 - 12.7 fL nRBC 0.0 0.0 - 2.0 /100 WBCs Neutrophils Relative 58.3 38.0 - 82.0 % Lymphocytes Relative 29.8 15.0 - 45.0 % Monocytes Relative 8.3 5.0 - 13.0 % Eosinophils Relative 3.0 0.0 - 6.0 % Basophils Relative 0.3 0.0 - 2.0 % Immature Grans % 0.3 0.0 - 2.0 % Neutrophils Absolute 5.0 1.8 - 7.5 10*3/uL Lymphocytes Absolute 2.6 1.0 - 4.3 10*3/uL Monocytes Absolute 0.7 0.0 - 0.9 10*3/uL Eosinophils Absolute 0.3 0.0 - 0.5 10*3/uL Basophils Absolute 0.0 0.0 - 0.2 10*3/uL Immature Grans Absolute 0.0 <0.1 10*3/uL Basic metabolic panel Result Value Ref Range SODIUM 136 135 - 145 mmol/L POTASSIUM 3.9 3.5 - 5.1 mmol/L CHLORIDE 106 98 - 107 mmol/L CARBON DIOXIDE 21 (L) 22 - 30 mmol/L UREA NITROGEN 6 (L) 7 - 17 mg/dL CREATININE 0.60 0.52 - 1.04 mg/dL GLUCOSE 87 70 - 100 mg/dL CALCIUM 9.8 8.4 - 10.4 mg/dL ANION GAP 9 3 - 13 mmol/L eGFR >90.0 >60.0 mL/min/1.73m*2 hCG, quantitative, Result Value Ref Range HCG QUANTITATIVE 52 Females <=5 mIU/mL Complete Urinalysis Result Value Ref Range Color, Urine Light Yellow Lt. Yellow Clarity, Urine Turbid (A) Clear pH, Urine 7.5 5.0 - 8.0 pH Leukocytes, Urine 250 (A) Negative Trisha/uL Nitrite, Urine Negative Negative Protein, Urine Negative Negative mg/dL Glucose, Urine Normal Normal (<70) mg/dL Bilirubin, Urine Negative Negative mg/dL Ketones, Urine Negative Negative mg/dL Urobilinogen, Urine Normal Normal (0-1) mg/dL Blood, Urine Negative Negative mg/dL Volume, Urine 12 mL RBC, Urine Negative 0 - 2 /HPF WBC, Urine 3-5 0 - 5 /HPF Squamous Epithelial, Urine 6-10 (A) 3 - 5 /HPF Bacteria, Urine Moderate (A) Negative /HPF Amorphous Crystals, Urine Moderate (A) Negative /HPF SPECIFIC GRAVITY OF URINE (NUMERIC) 1.009 1.005 - 1.030 Radiographs: No orders to display EMERGENCY DEPARTMENT COURSE and DIFFERENTIAL DIAGNOSIS/MDM: Vitals: Vitals: 03/17/24 0007 BP: 127/89 BP Location: Right arm Patient Position: Sitting Pulse: 97 Resp: 14 Temp: 36.6 C (97.9 F) TempSrc: Oral SpO2: 100% Weight: 58.1 kg (128 lb) Height: 1.753 m (5' 9) The patient presented with a chief complaint of pelvic pain. Vital signs reviewed. Examination doesreveal tenderness in the left lower quadrant. Differential considered include cystitis, pyelonephritis, ectopic , ovarian torsion among other etiologies. I ordered labs, hCG, urinalysis. Patient treated with IV fluid, p.o. Tylenol. Labs show grossly normal CBC, normal metabolic panel, urinalysis with contamination of 6-10 squamous epithelial cells however moderate bacteria, 250 leukocyte esterase. I will prophylactically treat with Keflex for possible UTI. hCG was found to be 52. This is slightly increased from the previous check in the 40s earlier that day per patient report. Unfortunately after treatment, patient has no improvement in symptoms. Discussed options including close outpatient follow-up versus transfer to another emergency department for ultrasound. Patient prefers the latter. Discuss[facility] with Dr. Chandler at [facility]. She agrees accept patient for transfer for ultrasound. Patient be transferred by private car with plans for ultrasound, anticipate if normal, patient be discharged for close outpatient follow-up and repeat hCG testing. ED Course as of 03/17/24 0551 FriMarch 17, 2024 0338 18-year-old female presents emergency department today with left lower quadrant, pelvic pain transferred from [place] emergency department for pelvic ultrasound. Concern for ectopic versus torsion. Denies any dysuria, frequency or urgency. Denies any vaginal bleeding. She states her first day of last menstrual period was February 14, 2024 approximately 1 month ago. She was treated there with Keflex for UTI and prescribed course of Keflex. hCG was found to be 52. Will obtain pelvic ultrasound and have patient follow-up outpatient with CLASSIFIED ADVERTISING CLERK for possible repeat ultrasound and repeat beta-hCG in 48 hours. [BM] 0508 Ultrasound showing no evidence of intrauterine , possible complex left ovarian cyst that may be related to corpus luteum. [BM] [address] Reeder of OB given concern for ongoing abdominal pain, possible torsion detorsion versus early ectopic . She agreed for admission for ongoing monitoring and possible diagnostic laparoscopy. [BM] ED Course User Index [BM] Susan Chandler, Diagnoses as of 03/17/24 0551 Left lower quadrant pain Cystitis Corpus luteum cyst of left ovary ED Medications managed: Medications cephalexin (Keflex) capsule 500 mg (has no administration in time range) acetaminophen (Tylenol) tablet 650 mg (650 mg Oral Given 03/17/24 0127) sodium chloride 0.9 % bolus 1,000 mL (0 mL IntraVENous Stopped 03/17/24 0226) Patients symptoms are consistent with sepsis, severe sepsis or septic shock (if yes, use .sepsiscoremeasure) - no Final Impression 1. Left lower quadrant pain 2. Cystitis DISPOSITION transferred to [place] for ultrasound evaluation Comment: Please note this report has been produced using speech recognition software and may contain errors related to that system including errors in grammar, punctuation, and spelling, as well as words and phrases that may be inappropriate. If there are any questions or concerns please feel free to contact the dictating provider for clarification. Jarek Ambrose DO [employer] Jarek Ambrose DO 03/17/24 0304 * Ssuan Chandler DO - 03/17/2024 12:03 AM EDT EMERGENCY DEPARTMENT ENCOUNTER Pt Name: Rosy Dominique Birthdate 2005 Date of evaluation: 03/17/2024 ED Provider: Susan Chandler DO CHIEF COMPLAINT Chief Complaint Patient presents with Abdominal Pain Back Pain HISTORY OF PRESENT ILLNESS (Location/Symptom, Timing/Onset, Context/Setting, Quality, Duration, Modifying Factors, Severity) Note limiting factors. I wore appropriate PPE for the entirety of this encounter. HPI 18-year-old female presents emergency department today with left lower quadrant, pelvic pain transferred from [place] emergency department for pelvic ultrasound. Concern for ectopic versus torsion. Denies any dysuria, frequency or urgency. Denies any vaginal bleeding. She states her first day of last menstrual period was February 14, 2024 approximately 1 month ago. She was treated there with Keflex for UTI and prescribed course of Keflex. Nursing Notes were reviewed. Limitations to history: None Outside historians: None REVIEW OF SYSTEMS Review of Systems Gastrointestinal: Positive for nausea. Genitourinary: Positive for pelvic pain. Negative for vaginal bleeding. Pertinent positives and negatives as per HPI. PAST MEDICAL HISTORY Past Medical History: Diagnosis Date Brugada syndrome Cardiomyopathy (HCC) Seizure (HCC) last seizure -2023 SURGICAL HISTORY Past Surgical History: Procedure Laterality Date ABSCESS DRAINAGE Right 08/18/2022 breast SECTION (HISTORICAL) 07/04/2022 CURRENT MEDICATIONS Previous Medications LEVETIRACETAM (KEPPRA) 500 MG TABLET Take 500 mg by mouth in the morning and 500 mg in the evening. [id number]-[id number]-FISH OIL ( + COMPLETE MULTI PO) Take by mouth. ALLERGIES Amoxicillin, Black walnut flavor, Bupivacaine, Chloroprocaine, Coconut fatty acids, Fentanyl, Ketorolac, Lidocaine, Vancomycin, Dexamethasone, Latex, and Hydrocodone-acetaminophen FAMILY HISTORY No family history on file. SOCIAL HISTORY Social History Socioeconomic History Marital status: Single Tobacco Use Smoking status: Never Smokeless tobacco: Never Vaping Use Vaping Use: Former Substance and Sexual Activity Alcohol use: Never Drug use: Never SCREENINGS PHYSICAL EXAM ED Triage Vitals [03/17/24 0007] Temp Heart Rate Resp BP 36.6 C (97.9 F) 97 14 127/89 SpO2 Temp Source Heart Rate Source Patient Position 100 % Oral Monitor Sitting BP Location FiO2 (%) Right arm -- Physical Exam Vitals and nursing note reviewed. Constitutional: General: She is not in acute distress. Appearance: She is well-developed. HENT: Head: Normocephalic and atraumatic. Eyes: Conjunctiva/sclera: Conjunctivae normal. Cardiovascular: Rate and Rhythm: Normal rate and regular rhythm. Heart sounds: No murmur heard. Pulmonary: Effort: Pulmonary effort is normal. No respiratory distress. Breath sounds: Normal breath sounds. Abdominal: Palpations: Abdomen is soft. Tenderness: There is abdominal tenderness in the left lower quadrant. Musculoskeletal: General: No swelling. Cervical back: Neck supple. Skin: General: Skin is warm and dry. Capillary Refill: Capillary refill takes less than 2 seconds. Neurological: Mental Status: She is alert. Psychiatric: Mood and Affect: Mood normal. DIAGNOSTIC RESULTS Procedures/EKG: RADIOLOGY (Per Emergency Physician): Interpretation per the Radiologist below, if available at the time of this note: US OB transvaginal (Results Pending) ED BEDSIDE ULTRASOUND: Performed by ED Physician - none LABS: Labs Reviewed BASIC METABOLIC PANEL - Abnormal Result Value SODIUM 136 POTASSIUM 3.9 CHLORIDE 106 CARBON DIOXIDE 21 (*) UREA NITROGEN 6 (*) CREATININE 0.60 GLUCOSE 87 CALCIUM 9.8 ANION GAP 9 eGFR >90.0 COMPLETE URINALYSIS - Abnormal Color, Urine Light Yellow Clarity, Urine Turbid (*) pH, Urine 7.5 Leukocytes, Urine 250 (*) Nitrite, Urine Negative Protein, Urine Negative Glucose, Urine Normal Bilirubin, Urine Negative Ketones, Urine Negative Urobilinogen, Urine Normal Blood, Urine Negative Volume, Urine 12 mL RBC, Urine Negative WBC, Urine 3-5 Squamous Epithelial, Urine 6-10 (*) Bacteria, Urine Moderate (*) Amorphous Crystals, Urine Moderate (*) SPECIFIC GRAVITY OF URINE (NUMERIC) 1.009 CBC WITH AUTO DIFFERENTIAL - Normal Auto WBC 8.6 RBC 4.42 Hemoglobin 12.5 Hematocrit 37.2 MCV 84.2 MCH 28.3 MCHC 33.6 RDW 12.6 Platelets 266 MPV 10.7 nRBC 0.0 Neutrophils Relative 58.3 Lymphocytes Relative 29.8 Monocytes Relative 8.3 Eosinophils Relative 3.0 Basophils Relative 0.3 Immature Grans % 0.3 Neutrophils Absolute 5.0 Lymphocytes Absolute 2.6 Monocytes Absolute 0.7 Eosinophils Absolute 0.3 Basophils Absolute 0.0 Immature Grans Absolute 0.0 HCG QUANTITATIVE BLOOD HCG QUANTITATIVE 52 Narrative: Values in should double every 2 to 3 days for the first 6 weeks. Elevated concentrations of human chorionic gonadotropin (hCG) measured in the first trimester of are observed in normal , but may serve as an indication of chorionic carcinoma, hydatiform mole, or multiplepregnancy. Decreasing hCG concentrations indicate threatened or missed , recent terminationof , ectopic , gestosis or intrauterine . Janene- and postmenopausal females may have detectable hCG concentrations (< or = to 14 mIU/mL) due to pituitary production of hCG. Serum follicle-stimulating hormone measurement may aid in ruling-out in this population. Cutoffs of greater than 20 to 45 mIU/mL have been suggested and are method dependent. False-elevations(called phantom human chorionic gonadotropin: hCG) may occur with patients who have human antianimal or heterophilic antibodies. Some specimens may not dilute linearly due to abnormal forms of hCG. Elevated hCG concentrations not associated with are found in patients with other diseases such as tumors of the germ cells, ovaries, bladder, pancreas, stomach, lungs, and liver. This test isnot intended to detect or monitor tumors or gestational trophoblastic disease. COMPLETE URINALYSIS WITH REFLEX TO CULTURE Narrative: The following orders were created for panel order Urinalysis Complete with reflex to Culture. Procedure Abnormality Status --------- ------ Complete Urinalysis[[id number]] Abnormal Final result Please view results for these tests on the individual orders. All other labs were within normal range or not returned as of this dictation. EMERGENCY DEPARTMENT COURSE and DIFFERENTIAL DIAGNOSIS/MDM: Vitals: Vitals: 03/17/24 0007 03/17/24 0304 03/17/24 0332 BP: 127/89 115/74 104/75 BP Location: Right arm Right arm Patient Position: Sitting Sitting Pulse: 97 88 82 Resp: 14 14 14 Temp: 36.6 C (97.9 F) 36.8 C (98.2 F) TempSrc: Oral Tympanic SpO2: 100% 98% 98% Weight: 58.1 kg (128 lb) Height: 1.753 m (5' 9) ED Course as of 03/17/24 0552 FriMarch 17, 2024 0338 18-year-old female presents emergency department today with left lower quadrant, pelvic pain transferred from [place] emergency department for pelvic ultrasound. Concern for ectopic versus torsion. Denies any dysuria, frequency or urgency. Denies any vaginal bleeding. She states her first day of last menstrual period was February 14, 2024 approximately 1 month ago. She was treated there with Keflex for UTI and prescribed course of Keflex. hCG was found to be 52. Will obtain pelvic ultrasound and have patient follow-up outpatient with CLASSIFIED ADVERTISING CLERK for possible repeat ultrasound and repeat beta-hCG in 48 hours. [BM] 0508 Ultrasound showing no evidence of intrauterine , possible complex left ovarian cyst that may be related to corpus luteum. [BM] [address] Reeder of OB given concern for ongoing abdominal pain, possible torsion detorsion versus early ectopic . She agreed for admission for ongoing monitoring and possible diagnostic laparoscopy. [BM] ED Course User Index [BM] Susan Chandler, Diagnoses as of 03/17/24 0552 Left lower quadrant pain Cystitis Corpus luteum cyst of left ovary EMERGENCY DEPARTMENT COURSE and DIFFERENTIAL DIAGNOSIS/MDM: Vitals: Vitals: 03/17/24 0007 03/17/24 0304 03/17/24 033 BP: 127/89 115/74 104/75 BP Location: Right arm Right arm Patient Position: Sitting Sitting Pulse: 97 88 82 Resp: 14 14 14 Temp: 36.6 C (97.9 F) 36.8 C (98.2 F) TempSrc: Oral Tympanic SpO2: 100% 98% 98% Weight: 58.1 kg (128 lb) Height: 1.753 m (5' 9) The patient presented with a chief complaint of left pelvic pain. The differential diagnosis associated with this patient's presentation includes pyelonephritis, ovarian cyst, ovarian torsion, ectopic , lower concern for kidney stone or diverticulitis. Our workup consisted of ordering/reviewing pelvic ultrasound, labs including CBC, BMP, urinalysis, hCG quant were performed at outside ED. ED Course as of 03/17/24 0552 FriMarch 17, 2024 0338 18-year-old female presents emergency department today with left lower quadrant, pelvic pain transferred from [place] emergency department for pelvic ultrasound. Concern for ectopic versus torsion. Denies any dysuria, frequency or urgency. Denies any vaginal bleeding. She states her first day of last menstrual period was February 14, 2024 approximately 1 month ago. She was treated there with Keflex for UTI and prescribed course of Keflex. hCG was found to be 52. Will obtain pelvic ultrasound and have patient follow-up outpatient with CLASSIFIED ADVERTISING CLERK for possible repeat ultrasound and repeat beta-hCG in 48 hours. [BM] 0508 Ultrasound showing no evidence of intrauterine , possible complex left ovarian cyst that may be related to corpus luteum. [BM] [address] Reeder of OB given concern for ongoing abdominal pain, possible torsion detorsion versus early ectopic . She agreed for admission for ongoing monitoring and possible diagnostic laparoscopy. [BM] ED Course User Index [BM] Susan Chandler, Diagnoses as of 03/17/24 0552 Left lower quadrant pain Cystitis Corpus luteum cyst of left ovary Diagnostics interpreted by me: Ultrasound(s) possible corpus luteum cyst in the left ovary Discussions with other clinicians: Dr. Medina of OB given concern for ongoing abdominal pain, possible torsion detorsion versus earlyectopic . She agreed for admission for ongoing monitoring and possible diagnostic laparoscopy. Chronic conditions impacting care: none Social determinants of health affecting care: none ED Medications managed: Medications acetaminophen (Tylenol) tablet 650 mg (650 mg Oral Given 03/17/24 0127) sodium chloride 0.9 % bolus 1,000 mL (0 mL IntraVENous Stopped 03/17/24 0226) cephalexin (Keflex) capsule 500 mg (500 mg Oral Given 03/17/24 0302) Medications acetaminophen (Tylenol) tablet 650 mg (650 mg Oral Given 03/17/24 0127) sodium chloride 0.9 % bolus 1,000 mL (0 mL IntraVENous Stopped 03/17/24 0226) cephalexin (Keflex) capsule 500 mg (500 mg Oral Given 03/17/24 0302) REVAL: CRITICAL CARE TIME FINAL IMPRESSION 1. Left lower quadrant pain 2. Cystitis DISPOSITION Transfer To [facility] Ed 03/17/2024 02:44:24 AM PATIENT REFERRED TO: Connor Martini [address] [facility] [place] [id number] In 2 days DISCHARGE MEDICATIONS: New Prescriptions CEPHALEXIN (KEFLEX) 500 MG CAPSULE Take 1 capsule (500 mg) by mouth 2 times daily for 7 days. (Comment: Please note this report has been produced using speech recognition software and may contain errors related to that system including errors in grammar, punctuation, and spelling, as well as words and phrases that may be inappropriate. If there are any questions or concerns please feel freeto contact the dictating provider for clarification.) Susan Chandler DO (electronically signed) Emergency Medicine Provider Susan Chandler DO 03/17/24 0552 * Bc Vazquez RN - 03/17/2024 12:03 AM EDT Patient ambulated to ED5 without difficulty. Visitor at bedside. She has pain across the lower backand left lower quadrant. This has been present for one week. She has not been taking IBU or Tylenolfor the pain. The pain has been getting worse. Pain rated 8/10 and described as intermittent sharp pain. No changes in urination and bowels are moving normally. She denies triggers or alleviating factors. She reports laying in bed when this happened. She endorses nausea without vomiting. She is eating and drinking normally. She is 4 weeks and 3 days . Patient appears to be in no acute distress. Skin is warm, dry, and pink. A&O x3. Respirations even and non labored. Bed in locked and low position. Call light within reach. Patient has no furtherneeds. documented in this [facility]05-08-2024 Hospital Discharge instructions* Discharge Instructions* Beryl Arenas MD - 03/17/2024 3:04 AM EDT Please go to lab for a repeat hcg test in 2 days * Attachments The following attachments cannot be sent through Care Everywhere. * Acute Cystitis Discharge Instructions ([place]) * Laparoscopy ([place]) * General Anesthesia Discharge Instructions ([place]) documented in this [facility]05-08-2024 Emergency department Note* Bc Vazquez RN - 03/17/2024 2:36 AM EDT Patient ambulated to restroom independently Bc Vazquez RN 03/17/24 023 [id number] Triage note* Bc Vazquez RN - 03/17/2024 12:03 AM EDT Patient ambulated to ED5 without difficulty. Visitor at bedside. She has pain across the lower backand left lower quadrant. This has been present for one week. She has not been taking IBU or Tylenolfor the pain. The pain has been getting worse. Pain rated 8/10 and described as intermittent sharp pain. No changes in urination and bowels are moving normally. She denies triggers or alleviating factors. She reports laying in bed when this happened. She endorses nausea without vomiting. She is eating and drinking normally. She is 4 weeks and 3 days . Patient appears to be in no acute distress. Skin is warm, dry, and pink. A&O x3. Respirations even and non labored. Bed in locked and low position. Call light within reach. Patient has no furtherneeds. [id number] Phys[facility] Emergency department Note* Jarek Ambrose DO - 03/17/2024 12:03 AM EDT Emergency Department Encounter [facility] ED Patient: Rosy Dominique : 2005 Date of Evaluation: 03/17/2024 ED Provider: Jarek Ambrose DO Chief Complaint Chief Complaint Patient presents with Abdominal Pain Back Pain RAYMOND Dominique is a 18 y.o. female who presents to the emergency department complaining of left lower quadrant pain, back pain. Patient reports symptoms that been present, developing over the last week. This is worsened today. Has not taken any medication for the pain. Patient approximately 4 weeks . This is her eighth with 1 living child at home, history of 6 miscarriages. She did undergo hCG testing earlier in the day with a quantitative hCG in the 40s. This was ordered due to her being a high risk . Denies vaginal bleeding. Denies fevers or chills. States that her last menstrual cycle was in early February. Additional history obtained from : n/a Barriers to obtaining history from patient: n/a ROS: Review of Systems completed as follows: (Bold = positive, Not bold = negative) GENERAL: fevers, chills, malaise ENT: runny nose, congestion, sore throat, ear pain NEURO: weakness, numbness of tingling, headache CARDIOVASCULAR: chest pain, syncope PULMONARY: shortness of breath, cough, wheezing GASTROINTESTINAL: nausea, vomiting, abdominal pain, diarrhea, constipation, MUSCULOSKELETAL: pain GENITAL/URINARY: dysuria, hematuria, increased urinary frequency, hesitancy, flank pain SKIN: rash, lesions, wound Past History Past Medical History: Diagnosis Date Brugada syndrome Cardiomyopathy (HCC) Seizure (HCC) last seizure -2023 Past Surgical History: Procedure Laterality Date ABSCESS DRAINAGE Right 08/18/2022 breast SECTION (HISTORICAL) 07/04/2022 Social History Socioeconomic History Marital status: Single Tobacco Use Smoking status: Never Smokeless tobacco: Never Vaping Use Vaping Use: Former Substance and Sexual Activity Alcohol use: Never Drug use: Never I have reviewed the history above as provided by nursing notes. Medications/Allergies Previous Medications LEVETIRACETAM (KEPPRA) 500 MG TABLET Take 500 mg by mouth in the morning and 500 mg in the evening. [id number]-GHDI-FISH OIL ( + COMPLETE MULTI PO) Take by mouth. Allergies Allergen Reactions Amoxicillin Anaphylaxis, Itching, Rash and Nausea And Vomiting Black [place] Flavor Anaphylaxis Bupivacaine Itching, Rash and Shortness of breath Chloroprocaine Shortness of breath Coconut Fatty Acids Anaphylaxis Fentanyl Anaphylaxis Ketorolac Anaphylaxis Lidocaine Shortness of breath Vancomycin Anaphylaxis and Rash Dexamethasone Itching and Rash Latex Angioedema, Rash and Hives Hydrocodone-Acetaminophen Rash I have reviewed the history above as provided by nursing notes. Physical Exam ED Triage Vitals [03/17/24 0007] Temp Heart Rate Resp BP 36.6 C (97.9 F) 97 14 127/89 SpO2 Temp Source Heart Rate Source Patient Position 100 % Oral Monitor Sitting BP Location FiO2 (%) Right arm -- GENERAL: The patient appears nourished and normally developed. Vital signs as documented. EYES: PERRL. No scleral icterus or orbital trauma noted. HEENT: Mucous membranes moist. Nares patent without copious rhinorrhea. LUNGS: Lungs are clear to auscultation, without any respiratory distress. CARDIAC: Rhythm is regular. No murmur appreciated ABDOMEN: Tenderness to palpation the left lower quadrant, soft, with no obvious masses, and no peritoneal signs. EXTREMITIES: Non edematous, with no obvious deformities. SKIN: Good color, with no significant rashes. No pallor. NEURO: No obvious neurological deficits, normal sensation and strength bilaterally. Diagnostics Labs: Results for orders placed or performed during the hospital encounter of 03/17/24 CBC auto differential Result Value Ref Range Auto WBC 8.6 3.6 - 10.7 10*3/uL RBC 4.42 3.80 - 5.20 10*6/uL Hemoglobin 12.5 11.7 - 16.0 g/dL Hematocrit 37.2 35.0 - 47.0 % MCV 84.2 77.0 - 99.0 fL MCH 28.3 26.0 - 34.0 pg MCHC 33.6 30.5 - 36.0 % RDW 12.6 11.5 - 15.0 % Platelets 266 140 - 440 10*3/uL MPV 10.7 9.0 - 12.7 fL nRBC 0.0 0.0 - 2.0 /100 WBCs Neutrophils Relative 58.3 38.0 - 82.0 % Lymphocytes Relative 29.8 15.0 - 45.0 % Monocytes Relative 8.3 5.0 - 13.0 % Eosinophils Relative 3.0 0.0 - 6.0 % Basophils Relative 0.3 0.0 - 2.0 % Immature Grans % 0.3 0.0 - 2.0 % Neutrophils Absolute 5.0 1.8 - 7.5 10*3/uL Lymphocytes Absolute 2.6 1.0 - 4.3 10*3/uL Monocytes Absolute 0.7 0.0 - 0.9 10*3/uL Eosinophils Absolute 0.3 0.0 - 0.5 10*3/uL Basophils Absolute 0.0 0.0 - 0.2 10*3/uL Immature Grans Absolute 0.0 <0.1 10*3/uL Basic metabolic panel Result Value Ref Range SODIUM 136 135 - 145 mmol/L POTASSIUM 3.9 3.5 - 5.1 mmol/L CHLORIDE 106 98 - 107 mmol/L CARBON DIOXIDE 21 (L) 22 - 30 mmol/L UREA NITROGEN 6 (L) 7 - 17 mg/dL CREATININE 0.60 0.52 - 1.04 mg/dL GLUCOSE 87 70 - 100 mg/dL CALCIUM 9.8 8.4 - 10.4 mg/dL ANION GAP 9 3 - 13 mmol/L eGFR >90.0 >60.0 mL/min/1.73m*2 hCG, quantitative, Result Value Ref Range HCG QUANTITATIVE 52 Females <=5 mIU/mL Complete Urinalysis Result Value Ref Range Color, Urine Light Yellow Lt. Yellow Clarity, Urine Turbid (A) Clear pH, Urine 7.5 5.0 - 8.0 pH Leukocytes, Urine 250 (A) Negative Trisha/uL Nitrite, Urine Negative Negative Protein, Urine Negative Negative mg/dL Glucose, Urine Normal Normal (<70) mg/dL Bilirubin, Urine Negative Negative mg/dL Ketones, Urine Negative Negative mg/dL Urobilinogen, Urine Normal Normal (0-1) mg/dL Blood, Urine Negative Negative mg/dL Volume, Urine 12 mL RBC, Urine Negative 0 - 2 /HPF WBC, Urine 3-5 0 - 5 /HPF Squamous Epithelial, Urine 6-10 (A) 3 - 5 /HPF Bacteria, Urine Moderate (A) Negative /HPF Amorphous Crystals, Urine Moderate (A) Negative /HPF SPECIFIC GRAVITY OF URINE (NUMERIC) 1.009 1.005 - 1.030 Radiographs: No orders to display EMERGENCY DEPARTMENT COURSE and DIFFERENTIAL DIAGNOSIS/MDM: Vitals: Vitals: 03/17/24 0007 BP: 127/89 BP Location: Right arm Patient Position: Sitting Pulse: 97 Resp: 14 Temp: 36.6 C (97.9 F) TempSrc: Oral SpO2: 100% Weight: 58.1 kg (128 lb) Height: 1.753 m (5' 9) The patient presented with a chief complaint of pelvic pain. Vital signs reviewed. Examination doesreveal tenderness in the left lower quadrant. Differential considered include cystitis, pyelonephritis, ectopic , ovarian torsion among other etiologies. I ordered labs, hCG, urinalysis. Patient treated with IV fluid, p.o. Tylenol. Labs show grossly normal CBC, normal metabolic panel, urinalysis with contamination of 6-10 squamous epithelial cells however moderate bacteria, 250 leukocyte esterase. I will prophylactically treat with Keflex for possible UTI. hCG was found to be 52. This is slightly increased from the previous check in the 40s earlier that day per patient report. Unfortunately after treatment, patient has no improvement in symptoms. Discussed options including close outpatient follow-up versus transfer to another emergency department for ultrasound. Patient prefers the latter. D[facility] with Dr. Chandler at [facility]. She agrees accept patient for transfer for ultrasound. Patient be transferred by private car with plans for ultrasound, anticipate if normal, patient be discharged for close outpatient follow-up and repeat hCG testing. ED Course as of 03/17/24 8182 FriMarch 17, 2024 0338 18-year-old female presents emergency department today with left lower quadrant, pelvic pain transferred from [place] emergency department for pelvic ultrasound. Concern for ectopic versus torsion. Denies any dysuria, frequency or urgency. Denies any vaginal bleeding. She states her first day of last menstrual period was February 14, 2024 approximately 1 month ago. She was treated there with Keflex for UTI and prescribed course of Keflex. hCG was found to be 52. Will obtain pelvic ultrasound and have patient follow-up outpatient with CLASSIFIED ADVERTISING CLERK for possible repeat ultrasound and repeat beta-hCG in 48 hours. [BM] 0508 Ultrasound showing no evidence of intrauterine , possible complex left ovarian cyst that may be related to corpus luteum. [BM] [address] Reeder of OB given concern for ongoing abdominal pain, possible torsion detorsion versus early ectopic . She agreed for admission for ongoing monitoring and possible diagnostic laparoscopy. [BM] ED Course User Index [BM] Susan Chandler DO Diagnoses as of 03/17/24 0551 Left lower quadrant pain Cystitis Corpus luteum cyst of left ovary ED Medications managed: Medications cephalexin (Keflex) capsule 500 mg (has no administration in time range) acetaminophen (Tylenol) tablet 650 mg (650 mg Oral Given 03/17/24 0127) sodium chloride 0.9 % bolus 1,000 mL (0 mL IntraVENous Stopped 03/17/24 0226) Patients symptoms are consistent with sepsis, severe sepsis or septic shock (if yes, use .sepsiscoremeasure) - no Final Impression 1. Left lower quadrant pain 2. Cystitis DISPOSITION transferred to [place] for ultrasound evaluation Comment: Please note this report has been produced using speech recognition software and may contain errors related to that system including errors in grammar, punctuation, and spelling, as well as words and phrases that may be inappropriate. If there are any questions or concerns please feel free to contact the dictating provider for clarification. Jarek Ambrose DO [employer] Jarek Ambrose DO 03/17/24 0304 [id number] Emergency department Note* Susan Chandler DO - 03/17/2024 12:03 AM EDT EMERGENCY DEPARTMENT ENCOUNTER Pt Name: Rosy Dominique Birthdate 2005 Date of evaluation: 03/17/2024 ED Provider: Susan Chandler DO CHIEF COMPLAINT Chief Complaint Patient presents with Abdominal Pain Back Pain HISTORY OF PRESENT ILLNESS (Location/Symptom, Timing/Onset, Context/Setting, Quality, Duration, Modifying Factors, Severity) Note limiting factors. I wore appropriate PPE for the entirety of this encounter. HPI 18-year-old female presents emergency department today with left lower quadrant, pelvic pain transferred from [place] emergency department for pelvic ultrasound. Concern for ectopic versus torsion. Denies any dysuria, frequency or urgency. Denies any vaginal bleeding. She states her first day of last menstrual period was February 14, 2024 approximately 1 month ago. She was treated there with Keflex for UTI and prescribed course of Keflex. Nursing Notes were reviewed. Limitations to history: None Outside historians: None REVIEW OF SYSTEMS Review of Systems Gastrointestinal: Positive for nausea. Genitourinary: Positive for pelvic pain. Negative for vaginal bleeding. Pertinent positives and negatives as per HPI. PAST MEDICAL HISTORY Past Medical History: Diagnosis Date Brugada syndrome Cardiomyopathy (HCC) Seizure (HCC) last seizure -2023 SURGICAL HISTORY Past Surgical History: Procedure Laterality Date ABSCESS DRAINAGE Right 08/18/2022 breast SECTION (HISTORICAL) 07/04/2022 CURRENT MEDICATIONS Previous Medications LEVETIRACETAM (KEPPRA) 500 MG TABLET Take 500 mg by mouth in the morning and 500 mg in the evening. [id number]-[id number]-FISH OIL ( + COMPLETE MULTI PO) Take by mouth. ALLERGIES Amoxicillin, Black walnut flavor, Bupivacaine, Chloroprocaine, Coconut fatty acids, Fentanyl, Ketorolac, Lidocaine, Vancomycin, Dexamethasone, Latex, and Hydrocodone-acetaminophen FAMILY HISTORY No family history on file. SOCIAL HISTORY Social History Socioeconomic History Marital status: Single Tobacco Use Smoking status: Never Smokeless tobacco: Never Vaping Use Vaping Use: Former Substance and Sexual Activity Alcohol use: Never Drug use: Never SCREENINGS PHYSICAL EXAM ED Triage Vitals [03/17/24 0007] Temp Heart Rate Resp BP 36.6 C (97.9 F) 97 14 127/89 SpO2 Temp Source Heart Rate Source Patient Position 100 % Oral Monitor Sitting BP Location FiO2 (%) Right arm -- Physical Exam Vitals and nursing note reviewed. Constitutional: General: She is not in acute distress. Appearance: She is well-developed. HENT: Head: Normocephalic and atraumatic. Eyes: Conjunctiva/sclera: Conjunctivae normal. Cardiovascular: Rate and Rhythm: Normal rate and regular rhythm. Heart sounds: No murmur heard. Pulmonary: Effort: Pulmonary effort is normal. No respiratory distress. Breath sounds: Normal breath sounds. Abdominal: Palpations: Abdomen is soft. Tenderness: There is abdominal tenderness in the left lower quadrant. Musculoskeletal: General: No swelling. Cervical back: Neck supple. Skin: General: Skin is warm and dry. Capillary Refill: Capillary refill takes less than 2 seconds. Neurological: Mental Status: She is alert. Psychiatric: Mood and Affect: Mood normal. DIAGNOSTIC RESULTS Procedures/EKG: RADIOLOGY (Per Emergency Physician): Interpretation per the Radiologist below, if available at the time of this note: US OB transvaginal (Results Pending) ED BEDSIDE ULTRASOUND: Performed by ED Physician - none LABS: Labs Reviewed BASIC METABOLIC PANEL - Abnormal Result Value SODIUM 136 POTASSIUM 3.9 CHLORIDE 106 CARBON DIOXIDE 21 (*) UREA NITROGEN 6 (*) CREATININE 0.60 GLUCOSE 87 CALCIUM 9.8 ANION GAP 9 eGFR >90.0 COMPLETE URINALYSIS - Abnormal Color, Urine Light Yellow Clarity, Urine Turbid (*) pH, Urine 7.5 Leukocytes, Urine 250 (*) Nitrite, Urine Negative Protein, Urine Negative Glucose, Urine Normal Bilirubin, Urine Negative Ketones, Urine Negative Urobilinogen, Urine Normal Blood, Urine Negative Volume, Urine 12 mL RBC, Urine Negative WBC, Urine 3-5 Squamous Epithelial, Urine 6-10 (*) Bacteria, Urine Moderate (*) Amorphous Crystals, Urine Moderate (*) SPECIFIC GRAVITY OF URINE (NUMERIC) 1.009 CBC WITH AUTO DIFFERENTIAL - Normal Auto WBC 8.6 RBC 4.42 Hemoglobin 12.5 Hematocrit 37.2 MCV 84.2 MCH 28.3 MCHC 33.6 RDW 12.6 Platelets 266 MPV 10.7 nRBC 0.0 Neutrophils Relative 58.3 Lymphocytes Relative 29.8 Monocytes Relative 8.3 Eosinophils Relative 3.0 Basophils Relative 0.3 Immature Grans % 0.3 Neutrophils Absolute 5.0 Lymphocytes Absolute 2.6 Monocytes Absolute 0.7 Eosinophils Absolute 0.3 Basophils Absolute 0.0 Immature Grans Absolute 0.0 HCG QUANTITATIVE BLOOD HCG QUANTITATIVE 52 Narrative: Values in should double every 2 to 3 days for the first 6 weeks. Elevated concentrations of human chorionic gonadotropin (hCG) measured in the first trimester of are observed in normal , but may serve as an indication of chorionic carcinoma, hydatiform mole, or multiplepregnancy. Decreasing hCG concentrations indicate threatened or missed , recent terminationof , ectopic , gestosis or intrauterine . Janene- and postmenopausal females may have detectable hCG concentrations (< or = to 14 mIU/mL) due to pituitary production of hCG. Serum follicle-stimulating hormone measurement may aid in ruling-out in this population. Cutoffs of greater than 20 to 45 mIU/mL have been suggested and are method dependent. False-elevations(called phantom human chorionic gonadotropin: hCG) may occur with patients who have human antianimal or heterophilic antibodies. Some specimens may not dilute linearly due to abnormal forms of hCG. Elevated hCG concentrations not associated with are found in patients with other diseases such as tumors of the germ cells, ovaries, bladder, pancreas, stomach, lungs, and liver. This test isnot intended to detect or monitor tumors or gestational trophoblastic disease. COMPLETE URINALYSIS WITH REFLEX TO CULTURE Narrative: The following orders were created for panel order Urinalysis Complete with reflex to Culture. Procedure Abnormality Status --------- ------ Complete Urinalysis[[id number]] Abnormal Final result Please view results for these tests on the individual orders. All other labs were within normal range or not returned as of this dictation. EMERGENCY DEPARTMENT COURSE and DIFFERENTIAL DIAGNOSIS/MDM: Vitals: Vitals: 03/17/24 0007 03/17/24 0304 03/17/24 0332 BP: 127/89 115/74 104/75 BP Location: Right arm Right arm Patient Position: Sitting Sitting Pulse: 97 88 82 Resp: 14 14 14 Temp: 36.6 C (97.9 F) 36.8 C (98.2 F) TempSrc: Oral Tympanic SpO2: 100% 98% 98% Weight: 58.1 kg (128 lb) Height: 1.753 m (5' 9) ED Course as of 03/17/24 0552 FriMarch 17, 2024 0338 18-year-old female presents emergency department today with left lower quadrant, pelvic pain transferred from [place] emergency department for pelvic ultrasound. Concern for ectopic versus torsion. Denies any dysuria, frequency or urgency. Denies any vaginal bleeding. She states her first day of last menstrual period was February 14, 2024 approximately 1 month ago. She was treated there with Keflex for UTI and prescribed course of Keflex. hCG was found to be 52. Will obtain pelvic ultrasound and have patient follow-up outpatient with [employer] ADVERTISING CLERK for possible repeat ultrasound and repeat beta-hCG in 48 hours. [BM] 0508 Ultrasound showing no evidence of intrauterine , possible complex left ovarian cyst that may be related to corpus luteum. [BM] [address] Reeder of OB given concern for ongoing abdominal pain, possible torsion detorsion versus early ectopic . She agreed for admission for ongoing monitoring and possible diagnostic laparoscopy. [BM] ED Course User Index [BM] Susan Chandler, DO Diagnoses as of 03/17/24 0552 Left lower quadrant pain Cystitis Corpus luteum cyst of left ovary EMERGENCY DEPARTMENT COURSE and DIFFERENTIAL DIAGNOSIS/MDM: Vitals: Vitals: 03/17/24 0007 03/17/24 0304 03/17/24 0332 BP: 127/89 115/74 104/75 BP Location: Right arm Right arm Patient Position: Sitting Sitting Pulse: 97 88 82 Resp: 14 14 14 Temp: 36.6 C (97.9 F) 36.8 C (98.2 F) TempSrc: Oral Tympanic SpO2: 100% 98% 98% Weight: 58.1 kg (128 lb) Height: 1.753 m (5' 9) The patient presented with a chief complaint of left pelvic pain. The differential diagnosis associated with this patient's presentation includes pyelonephritis, ovarian cyst, ovarian torsion, ectopic , lower concern for kidney stone or diverticulitis. Our workup consisted of ordering/reviewing pelvic ultrasound, labs including CBC, BMP, urinalysis, hCG quant were performed at outside ED. ED Course as of 03/17/24 05FriMarch 17, 2024 0338 18-year-old female presents emergency department today with left lower quadrant, pelvic pain transferred from [place] emergency department for pelvic ultrasound. Concern for ectopic versus torsion. Denies any dysuria, frequency or urgency. Denies any vaginal bleeding. She states her first day of last menstrual period was February 14, 2024 approximately 1 month ago. She was treated there with Keflex for UTI and prescribed course of Keflex. hCG was found to be 52. Will obtain pelvic ultrasound and have patient follow-up outpatient with CLASSIFIED ADVERTISING CLERK for possible repeat ultrasound and repeat beta-hCG in 48 hours. [BM] 0508 Ultrasound showing no evidence of intrauterine , possible complex left ovarian cyst that may be related to corpus luteum. [BM] [address] Reeder of OB given concern for ongoing abdominal pain, possible torsion detorsion versus early ectopic . She agreed for admission for ongoing monitoring and possible diagnostic laparoscopy. [BM] ED Course User Index [BM] Susan Chandler DO Diagnoses as of 03/17/2452 Left lower quadrant pain Cystitis Corpus luteum cyst of left ovary Diagnostics interpreted by me: Ultrasound(s) possible corpus luteum cyst in the left ovary Discussions with other clinicians: Dr. Medina of OB given concern for ongoing abdominal pain, possible torsion detorsion versus earlyectopic . She agreed for admission for ongoing monitoring and possible diagnostic laparoscopy. Chronic conditions impacting care: none Social determinants of health affecting care: none ED Medications managed: Medications acetaminophen (Tylenol) tablet 650 mg (650 mg Oral Given 03/17/24 0127) sodium chloride 0.9 % bolus 1,000 mL (0 mL IntraVENous Stopped 03/17/24 0226) cephalexin (Keflex) capsule 500 mg (500 mg Oral Given 03/17/24 0302) Medications acetaminophen (Tylenol) tablet 650 mg (650 mg Oral Given 03/17/24 0127) sodium chloride 0.9 % bolus 1,000 mL (0 mL IntraVENous Stopped 03/17/24 0226) cephalexin (Keflex) capsule 500 mg (500 mg Oral Given 03/17/24 0302) REVAL: CRITICAL CARE TIME FINAL IMPRESSION 1. Left lower quadrant pain 2. Cystitis DISPOSITION Transfer To [facility] 03/17/2024 02:44:24 AM PATIENT REFERRED TO: Connor Martini [address] [facility] [phone] In 2 days DISCHARGE MEDICATIONS: New Prescriptions CEPHALEXIN (KEFLEX) 500 MG CAPSULE Take 1 capsule (500 mg) by mouth 2 times daily for 7 days. (Comment: Please note this report has been produced using speech recognition software and may contain errors related to that system including errors in grammar, punctuation, and spelling, as well as words and phrases that may be inappropriate. If there are any questions or concerns please feel freeto contact the dictating provider for clarification.) Susan Chandler DO (electronically signed) Emergency Medicine Provider Susan Chandler DO 03/17/24 0552 [id number] Discharge instructions Patient Education 03/09/2024 00:55:07 Allergic Reaction, Other (General) General Allergic Reactions An allergic reaction is a set of symptoms caused by an allergen. An allergen is something that causes a person s immune system to react. When a person comes in contact with an allergen, it causes thebody to release chemicals. These include the chemical histamine. Histamine causes swelling and itching. It may affect the entire body. This is called a general allergic reaction. Often symptoms affect only 1 part of the body. This is called a local allergic reaction. You are having an allergic reaction. Almost anything can cause one. Different people are allergic to different things. It is usually something that you ate or swallowed, came into contact with by getting or putting it on your skin or clothes, or something you breathed in the air. This can be very annoying and sometimes scary. Most of us think of allergic reactions when we have a rash or itchy skin. Symptoms can include: Itching of the eyes, nose, and roof of the mouth Runny or stuffy nose Watery eyes Sneezing or coughing A blocked feeling in the ear Red, itchy rash called hives Red and purple spots Rash, redness, welts, blisters Itching, burning, stinging, pain Dry, flaky, cracking, scaly skin Severe symptoms include: Swelling of the face, lips, or other parts of the body Hoarse voice Trouble swallowing, feeling like your throat is closing Trouble breathing, wheezing Nausea, vomiting, diarrhea, stomach cramps Feeling faint or lightheaded, rapid heart rate Sometimes the cause may be obvious. But there are so many things that can cause a reaction that youmay not be able to figure out. The most important things to help find your allergen are: Remembering when it started What you were doing at the time or just before that Any activities you were involved in Any new products or contacts Below are some common causes. But remember that almost anything can cause a reaction. You may not even be aware that you came into contact with one of these things: Dust, mold, pollen Plants (common ones are poison sarah and poison oak, but there are many others) Animals Foods such as shrimp, shellfish, peanuts, milk products, gluten, and eggs. Also food colorings, flavorings, and additives. Insect bites or stings such as bees, mosquitos, fleas, ticks Medicines such as penicillin, sulfa medicines, amoxicillin, aspirin, and ibuprofen. But any medicine can cause a reaction. Jewelry such as nickel or gold. This can be new, or something you ve worn for a while, including zippers and buttons. Latex such as in gloves, clothes, toys, balloons, or some tapes. Some people allergic to latex may also have problems with foods like bananas, avocados, kiwi, papaya, or chestnuts. Lotions, perfumes, cosmetics, soaps, shampoos, skincare products, nail products Chemicals or dyes in clothing, linen, hydraulic technician, hair dyes, soaps, iodine Many viruses and common colds can cause a rash that is not an allergic reaction. Sometimes it is hard to tell the difference between allergies, sensitivity, or an intolerance to something. This is especially true with food. Many things can cause diarrhea, vomiting, stomach cramps, and skin irritation. Home care The goal of treatment is to help relieve the symptoms and get you feeling better. The rash will usually fade over several days. But it can sometimes last a couple of weeks. Over the next couple of days, there may be times when it is gets a little worse, and then better again. Here are some things to do: If you know what you are allergic to, stay away from it. Future reactions could be worse than this one. Avoid tight clothing and anything that heats up your skin (hot showers or baths, direct sunlight). Heat will make itching worse. An ice pack will relieve local areas of intense itching and redness. To make an ice pack, put ice cubes in a plastic bag that seals at the top. Wrap it in a thin, clean towel. Don t put the ice directly on the skin because it can damage the skin. Oral diphenhydramine is an qgge-tih-qcvywor antihistamine sold at pharmacy and grocery stores. Unless a prescription antihistamine was given, diphenhydramine may be used to reduce itching if large areas of the skin are involved. It may make you sleepy. So be careful using it in the daytime or when going to school, working, or driving. Note: Don t use diphenhydramine if you have glaucoma or if youare a man with trouble urinating due to an enlarged prostate. There are other antihistamines that won t make you so sleepy. These are good choices for daytime use. Ask your pharmacist for suggestions. Don t use diphenhydramine cream on your skin. It can cause a further reaction in some people. To help prevent an infection, don't scratch the affected area. Scratching may worsen the reaction and damage your skin. It can also lead to an infection. Always check the affected for signs of an infection. Call your healthcare provider and ask what you can use to help decrease the itching. To decrease allergic reactions, try the following: Use heat-steam to clean your home Use high-efficiency particulate (HEPA) vacuums and filters Stay away from food and pet triggers Kill any cockroaches Clean your house often Follow-up care Follow up with your healthcare provider, or as advised. If you had a severe reaction today, or if you have had several mild to medium allergic reactions in the past, ask your provider about allergy testing. This can help you find out what you are allergic to. If your reaction included dizziness, fainting, or trouble breathing or swallowing, ask your provider about carrying auto- injectable epinephrine. Call 911 Call 911 if any of these occur: Trouble breathing or swallowing, wheezing Cool, moist, pale skin Shortness of breath Hoarse voice or trouble speaking Confused Very drowsy or trouble awakening Fainting or loss of consciousness Rapid heart rate Feeling of dizziness or weakness or a sudden drop in blood pressure Feeling of doom Feeling lightheaded Severe nausea or vomiting, or diarrhea Seizure Swelling in the face, eyelids, lips, mouth, throat or tongue Drooling When to seek medical advice Call your healthcare provider right away if any of these occur: Spreading areas of itching, redness or swelling Nausea or stomach cramps or abdominal pain Continuing or recurring symptoms Spreading areas of redness, swelling, or itching Signs of infection at the affected site: oSpreading redness oIncreased pain or swelling oFluid or colored drainage from the site oFever of 100.4 F (38 C) or above lasting for 24 to 48 hours, or as directed by your provider [id number] [employer] [address] [place] [address], [place] [address]. All rights reserved. This information is not intended as a substitute for professional medical care. Always follow yourhealthcare professional's instructions. Follow Up Care 03/09/2024 00:36:56 With:CONNOR KELLYOLIVIER Address: [address] [place] [address] [place] [address] Business (1) [facility] Note Discharge Instructions Thank you for allowing [facility] to assist you with your healthcare needs. The following is importantdischarge information regarding your hospital visit. Diagnosis from Today's Visit Allergic reaction Allergic reaction What to Do Next Instructions from Your Care Team No qualifying data available. Post Acute Orders No qualifying data available. You Need to Schedule the Following Appointments Follow Up with CONNOR MARTINI When Within 2-4 days Where: [address] [place] [address] [place] [phone]- Business (1) Allergies lidocaine Decadron Vicodin amoxicillin bupivacaine chloroprocaine fentaNYL vancomycin Medications Please ask your primary doctor or pharmacist before taking any other medication not listed, including over the counter drugs, herbal medications, vitamins and or supplements as they may interact withyour home medications. What How Much When Instructions Last Dose New predniSONE (predniSONE 20 mg oral tablet) 2 tab(s) by mouth Once a day Duration: 3 Days Printed Prescription Unchanged famotidine (Pepcid 20 [...] providers or retail pharmacies. Education Materials General Allergic Reactions An allergic reaction is a set of symptoms caused by an allergen. An allergen is something that causes a person s immune system to react. When a person comes in contact with an allergen, it causes thebody to release chemicals. These include the chemical histamine. Histamine causes swelling and itching. It may affect the entire body. This is called a general allergic reaction. Often symptoms affect only 1 part of the body. This is called a local allergic reaction. You are having an allergic reaction. Almost anything can cause one. Different people are allergic to different things. It is usually something that you ate or swallowed, came into contact with by getting or putting it on your skin or clothes, or something you breathed in the air. This can be very annoying and sometimes scary. Most of us think of allergic reactions when we have a rash or itchy skin. Symptoms can include: Itching of the eyes, nose, and roof of the mouth Runny or stuffy nose Watery eyes Sneezing or coughing A blocked feeling in the ear Red, itchy rash called hives Red and purple spots Rash, redness, welts, blisters Itching, burning, stinging, pain Dry, flaky, cracking, scaly skin Severe symptoms include: Swelling of the face, lips, or other parts of the body Hoarse voice Trouble swallowing, feeling like your throat is closing Trouble breathing, wheezing Nausea, vomiting, diarrhea, stomach cramps Feeling faint or lightheaded, rapid heart rate Sometimes the cause may be obvious. But there are so many things that can cause a reaction that youmay not be able to figure out. The most important things to help find your allergen are: Remembering when it started What you were doing at the time or just before that Any activities you were involved in Any new products or contacts Below are some common causes. But remember that almost anything can cause a reaction. You may not even be aware that you came into contact with one of these things: Dust, mold, pollen Plants (common ones are poison sarah and poison oak, but there are many others) Animals Foods such as shrimp, shellfish, peanuts, milk products, gluten, and eggs. Also food colorings, flavorings, and additives. Insect bites or stings such as bees, mosquitos, fleas, ticks Medicines such as penicillin, sulfa medicines, amoxicillin, aspirin, and ibuprofen. But any medicine can cause a reaction. Jewelry such as nickel or gold. This can be new, or something you ve worn for a while, including zippers and buttons. Latex such as in gloves, clothes, toys, balloons, or some tapes. Some people allergic to latex may also have problems with foods like bananas, avocados, kiwi, papaya, or chestnuts. Lotions, perfumes, cosmetics, soaps, shampoos, skincare products, nail products Chemicals or dyes in clothing, linen, hydraulic technician, hair dyes, soaps, iodine Many viruses and common colds can cause a rash that is not an allergic reaction. Sometimes it is hard to tell the difference between allergies, sensitivity, or an intolerance to something. This is especially true with food. Many things can cause diarrhea, vomiting, stomach cramps, and skin irritation. Home care The goal of treatment is to help relieve the symptoms and get you feeling better. The rash will usually fade over several days. But it can sometimes last a couple of weeks. Over the next couple of days, there may be times when it is gets a little worse, and then better again. Here are some things to do: If you know what you are allergic to, stay away from it. Future reactions could be worse than this one. Avoid tight clothing and anything that heats up your skin (hot showers or baths, direct sunlight). Heat will make itching worse. An ice pack will relieve local areas of intense itching and redness. To make an ice pack, put ice cubes in a plastic bag that seals at the top. Wrap it in a thin, clean towel. Don t put the ice directly on the skin because it can damage the skin. Oral diphenhydramine is an lsvw-juh-lqeppno antihistamine sold at pharmacy and grocery stores. Unless a prescription antihistamine was given, diphenhydramine may be used to reduce itching if large areas of the skin are involved. It may make you sleepy. So be careful using it in the daytime or when going to school, working, or driving. Note: Don t use diphenhydramine if you have glaucoma or if youare a man with trouble urinating due to an enlarged prostate. There are other antihistamines that won t make you so sleepy. These are good choices for daytime use. Ask your pharmacist for suggestions. Don t use diphenhydramine cream on your skin. It can cause a further reaction in some people. To help prevent an infection, don't scratch the affected area. Scratching may worsen the reaction and damage your skin. It can also lead to an infection. Always check the affected for signs of an infection. Call your healthcare provider and ask what you can use to help decrease the itching. To decrease allergic reactions, try the following: Use heat-steam to clean your home Use high-efficiency particulate (HEPA) vacuums and filters Stay away from food and pet triggers Kill any cockroaches Clean your house often Follow-up care Follow up with your healthcare provider, or as advised. If you had a severe reaction today, or if you have had several mild to medium allergic reactions in the past, ask your provider about allergy testing. This can help you find out what you are allergic to. If your reaction included dizziness, fainting, or trouble breathing or swallowing, ask your provider about carrying auto- injectable epinephrine. Call 911 Call 911 if any of these occur: Trouble breathing or swallowing, wheezing Cool, moist, pale skin Shortness of breath Hoarse voice or trouble speaking Confused Very drowsy or trouble awakening Fainting or loss of consciousness Rapid heart rate Feeling of dizziness or weakness or a sudden drop in blood pressure Feeling of doom Feeling lightheaded Severe nausea or vomiting, or diarrhea Seizure Swelling in the face, eyelids, lips, mouth, throat or tongue Drooling When to seek medical advice Call your healthcare provider right away if any of these occur: Spreading areas of itching, redness or swelling Nausea or stomach cramps or abdominal pain Continuing or recurring symptoms Spreading areas of redness, swelling, or itching Signs of infection at the affected site: oSpreading redness oIncreased pain or swelling oFluid or colored drainage from the site oFever of 100.4 F (38 C) or above lasting for 24 to 48 hours, or as directed by your provider [id number] [employer] [address] [place] [address]. All rights reserved. This information is not intended as a substitute for professional medical care. Always follow yourhealthcare professional's instructions. Additional Information VACCINATE! IT SAVES LIVES! Members of the community who have not yet received the COVID-19 vaccine and would like to receive it can visit one of [facility] vaccine clinics. There are many vaccine clinic locations within the [facility]. For locations and available times, please visit [email or web address] It is important to note that some COVID mobile vaccine clinics are held outdoors and may be canceled in rainy or stormy conditions. To learn more about pediatric vaccinations (ages 5-11), we invite you to visit the [facility] webpage. [email or web address] learn more about the COVID-19 vaccine, we invite you to visit the CDC website for a list of frequently asked questions. https://www.cdc.gov/coronavirus/2019-ncov/vaccines/faq.html [facility] Patient Portal Access Instructions: Stay connected with your healthcare team and access your personal medical information anytime with the [employer] Patient Portal. If you would like a full copy of your medical records please contact the [facility] Medical Records Department Friday through Friday between 8a.m. and 4:30p.m. Please follow the directions below to access the portal: 1.Access the email account you provided upon registration to the [facility].2.Look for an invitation email from [facility].3.Open the email and access the invitation link: Accept Invitation to [employer]4.Fill in the required cuevas to create your account. Sign into [email or web address] with your username and password that you [...] you will allow to register on the [employer] Patient Portal for access to your information. You can also access the [employer] Patient Portal on the [employer] elias. Simply click on Health Records under [employer] and then click on the [employer] logo. HOW TO SAFELY DISPOSE OF PRESCRIPTION MEDICATIONS Please use one of the following methods to safely dispose of your unused medications. 1.Use a drug disposal kit: the drug disposal pouch allows you to safely discard your old and unuseddrugs. Ask your nurse to give you one when you are discharged.2.Visit a local take-back location: Many local pharmacies and police departments have programs that collect old and unwanted prescriptiondrugs. Call your local pharmacy or go to http://bit.ly/9C2Ni8q to find one close to you.3.Make use of household items: Use cat litter or old coffee grounds to dispose medications if other options arenot available. Mix your drugs with these household products, seal them in an airtight container andthrow it into the garbage. Call [facility]: [phone] to be sure your drugs can be [...] drowsiness, such as benzodiazepines, also known as benzos,including diazepam and alprazolam, muscle relaxants or sleep aids. Never sell or share prescriptionopioids. This is illegal. Store opioids in a secure place and out of reach of others (including children, family, friends and visitors). The last page(s) of this document has been signed and retained as a CHART COPY Signatures Patient Education Materials Allergic Reaction, Other (General) Medication Leaflets My discharge plan and instructions have been reviewed and explained to me and ITRIP ASHLEE L understand my current condition and have read and understand these discharge instructions. I have received a written copy of the plan/instructions. If I have questions, I am aware that I should contact my doctor. Patient/Electronic Tester Signature: Date/Time: Relationship to Patient: Witness Name/Signature: Date/Time: [facility]04-22-2024 History of Present illness Narrative * Yusra Puga APRN.CNP - 03/01/2024 1:29 PM EDT NEW PATIENT Chief Complaint: Dermatitis History of Present Ilness: Rosy Dominique is a 18 year old female who presents today for a rash #1 Rash Location: all over Duration: 2-3 years Symptoms: red bumps, itchy, leave behind a bruise Current Treatment: zyrtec Past Treatment: aquaphor - rash is not present today, reports it comes and goes. Lasts ~ 2 weeks when present then goes awayon its own Pertinent History: History of skin cancer: No History of atypical nevi: No History of immunosuppression/organ transplant: No , planning , or ? Yes planning Pertinent Family medical history: History of melanoma: Yes, both grandparents, many extended family members as well History of non melanoma skin cancer: Extended family members Other family history (autoimmune, dermatologic, etc): None Past Medical History is reviewed. Medication List is reviewed. ROS: Skin as above. Physical Exam: Robertson skin type: II The patient is a pleasant female in no apparent distress. Alert and oriented x 3. A skin exam performed of the abdomen is significant for: Skin clear on exam today Assessment and Plan: Rash and nonspecific skin eruption Unclear etiology as rash is not present on exam today Recommend gentle skin care Patient to contact office via [facility] when rash is flaring Follow up as noted in plan or as needed The documentation for this note was completed by Sri Glez RN acting as scribe for Yusra Puga APRN.CNP. I agree with the Chief Complaint, ROS, and Past Histories independently gathered by the clinical unit support representative and the remaining scribed note accurately describes my personal service to the patient. Yusra Puga APRN.CNP documented in this encounter[facility] History of Present illness Narrative* JanuaryJose A MD - 04/26/2024 11:43 AM EDT MATERNAL MEDICINE CONSULT SERVICE DATE: April 26, 2024 SERVICE TIME: 11:43 AM REQUESTING PROVIDER: Akiko Tomlin PA-C Subjective HISTORY OF THE PRESENT ILLNESS: Rosy Dominique is a 18 year old at 10w2d referred for a Maternal- Medicine consultation regarding her history of prior delivery with PPROM and IUGRin 2021, patient report of Brugada syndrome and cardiomyopathy, abdominal pain for the past 6 weeks throughout this . She has had daily pain that is slowly getting worse in her LLQ. It is stabbing and radiates up to her left chest/ribs and since she had a diagnostic laparoscopy, also hasburning pain down her legs. No vomiting or diarrhea, some nausea, no constipation, no fever/chills. HISTORY REVIEW PAST MEDICAL HISTORY Diagnosis Date Breast abscess of female right Brugada syndrome Chronic daily headache Complication of anesthesia Diabetes mellitus type I (HCC) Diabetes, gestational NEGATIVE MEDICAL HISTORY 11/10/2015 Normal Color Vision POTS (postural orthostatic tachycardia syndrome) Seizure (HCC) Thyroid disease Trauma PAST SURGICAL HISTORY Procedure Laterality Date DELIVERY ONLY 06/14/2022 MASTOTOMY W/EXPLORATION/DRAINAGE ABSCESS DEEP Right 08/18/2022 FAMILY HISTORY Problem Relation Age of Onset None Mother None Father Diabetes Paternal Grandfather Social History Tobacco Use Smoking status: Never Passive exposure: Yes Smokeless tobacco: Current Tobacco comments: vape Vaping Use Vaping Use: Former Substances: Nicotine Substance Use Topics Alcohol use: No Drug use: Never Obstetric History T0 L1 SAB1 IAB2 Ectopic0 Multiple0 Live Births1 Name of Baby 1: Not recorded Date: 08/19/19 GA: Not recorded Delivery: INDUCED Apgar1: Not recorded Apgar5: Not recorded Living: Not recorded Name of Baby 2: Alice Date: 06/14/22 GA: Not recorded Delivery: , Other Apgar1: Not recorded Apgar5: Not recorded Living: Living Name of Baby 3: Not recorded Date: 11/03/22 GA: Not recorded Delivery: MISSED AB Apgar1: Not recorded Apgar5: Not recorded Living: Not recorded Name of Baby 4: Not recorded Date: 01/17/24 GA: Not recorded Delivery: Not recorded Apgar1: Not recorded Apgar5: Not recorded Living: Not recorded Name of Baby 5: Not recorded Date: Not recorded GA: Not recorded Delivery: Not recorded Apgar1: Not recorded Apgar5: Not recorded Living: Not recorded ALLERGIES Allergen Reactions Amoxicillin Rash, GI Upset, Unknown Bupivacaine Shortness of Breath Chloroprocaine Shortness of Breath Coconut Anaphylaxis, Unknown Dexamethasone Itching Hydrocodone Itching, Unknown Latex Other: See Comments, Unknown Lidocaine Shortness of Breath Vancomycin Rash, Other: See Comments Vicodin [Hydrocodon* Rash Current Outpatient Medications on File Prior to Visit Medication Sig cyclobenzaprine (FLEXERIL) 10 mg tablet Take 0.5 tablets by mouth two times a day as needed. vit calc,iron,folic (PRENAT.VITS,ANISH,VMT-RNZH-SAOXK ORAL) Take by mouth. blood sugar diagnostic test strip Use as directed to check glucose levels up to seven times daily. Lancets Use as directed to check glucose levels up to seven times daily. alcohol swabs (ALCOHOL PREP PADS) Use as directed to check glucose levels up to seven times daily. No current facility-administered medications on file prior to visit. Objective BP 96/65 Ht 5' 9 (1.75m) Wt 127 lb (57.6kg) LMP 02/14/2024 BMI 18.75 kg/(m^2). PHYSICAL EXAM: Physical Exam Constitutional: Appearance: Normal appearance. Abdominal: General: Abdomen is flat. Palpations: Abdomen is soft. Incisions healing well, non distended, mildly tender, no peritoneal signs Neurological: General: No focal deficit present. Mental Status: She is alert and oriented to person, place, and time. Psychiatric: Mood and Affect: Mood normal. Behavior: Behavior normal. LABS Diagnostic tests reviewed for today's visit: Most recent labs and imaging results. Most recent EKG Impression/Recommendations 18 year old at 10w2d with Active Non-Hospital Problems Diagnosis Abdominal pain during in first trimester - Abdominal pain, burning/sharp/stabbing and radiating up to ribs and down left leg for 6 weeks. Denies nausea, vomiting, issues with BM, fever, chills. - Known intrauterine gestation - Patient had diagnostic laparoscopy 1 month ago with [facility] for same pain > operative report in care everywhere, noted left ovarian cyst but otherwise no findings - Vitals WNL, exam benign with no tenderness - Prior urine dips/ urinalysis without signs of kidney stones - Pain likely neuropathic/MSK > will trial Flexeril and Gabapentin [facility] Referred Referral received. Local [facility] team will reach out for scheduling around 30 weeks. Encounter for supervision of high risk young multigravida, antepartum Care Checklist Vaccines: [] Flu vaccine [] declined [] RSV vaccine 32 0/7 - 36 6/7 (Jul - Dec) [] declined [] COVID vaccine [] declined [] TDaP 27-36 [] declined First trimester: [x] Dating US [] 1st tri labs-ordered [] Pap smear- N/A [] Carrier screening- Reports previous screen. No visible [] declined [] NIPT screening- ordered [] declined [] First trimester anatomy scan- ordered [] declined [x] universal ASA ordered (start 12w-16w) [] declined [x] [facility] Consult [] not indicated [] declined Second trimester: [] AFP [] declined [] Anatomy scan [] Mode of Delivery - [] Feeding - [] Pump ordered [] Diabetes screen [] CBC, RPR Third trimester (28-30 weeks): [] Consent [] Contraception - [] Digester Capper Third trimester (36-40 weeks): [] GBS [] Presentation - [] Scheduled [] yes - Hibiclens, pre-op instructions, CBC, T&S ordered [] no [] H&P History of delivery, currently Plan for serial cervical lengths at 16 weeks History of prior with small for gestational age 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 Vasovagal syncope. 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 Needs intermittent evaluation for development of cardiomyopathy. Will contact cardio OB clinic to see if patient warrants a consultation. Given recent normal cardiac evaluation and VUS (not actual Brugada syndrome) likely low risk in . Nontoxic single thyroid nodule Tsh orderd Seizure (HCC) Palpitations Arthralgia of temporomandibular joint Nontoxic goiter, unspecified Ankle instability, right Jose A IFiona Ramirez MD Maternal Medicine Medical Decision Making: Problems: Moderate: New problem with uncertain prognosis and 2+ stable chronic illnesses Data: Unique test result(s) reviewed: 3+ Unique test(s) ordered: 3+ Risk: Moderate: Drug management Medical Decision Making Level: 4 - Moderate documented in this [facility]09-19-2023 Miscellaneous Notes* Telephone Encounter - Etelvina Campos LPN - 07/29/2023 8:15 AM EDT Called pt who was referred to by . Left voice mail asking her to return my call or call the office at to make appointment at her convenience. All contact number were given. Etelvina Campos LPN documented in this encounterU[facility]09-18-2023 History of Present illness Narrative* Wagner Conte MD - 07/28/2023 2:25 PM EDT Subjective: Patient had a recent ultrasound of [...] surgeons for further evaluation. documented in this encounterU[facility]09-[facility]-2023 History of Present illness Narrative* Wagner Conte MD - 07/16/2023 8:37 AM EDT Subjective: Patient presents today with increasing mastodynia on the right breast. In the upper half of the breast that extends up into her shoulder areas she is not complaining of any nipple discharge she has not noticed any redness or anything draining from her previous incision and drainage site. Objective:Blood pressure 104/72, pulse 109, temperature 37.1 C (98.7 F), height 175.3 cm (5' 9), weight 50.9 kg (112 lb 3.2 oz), last menstrual period 12/05/2022, SpO2 97 %. Scar line on the right breast circumareolar Andre looks clean there is no cellulitis I cannot palpateany masses. It is a little bit firmer [...] evaluation of her mastodynia. documented in this encounterU[facility] Center06-27-2023 Miscellaneous Notes* Telephone Encounter - Jose A Rojas - 05/06/2023 6:30 PM EDT Patient given results and verbalized understanding of instructions given. Jose A Rojas * Telephone Encounter - Yoel Guzmán APRN.CNP - 05/06/2023 4:40 PM EDT No fractures identified. Continue supportive therapies as discussed. Yoel Guzmán APRN.CNP documented in this encounterUc [facility] Center06-27-2023 History of Present illness Narrative* Janae Lamb, RT(R) - 05/06/2023 4:20 PM EDT Radiology Service Progress Note PATIENT NAME: Rosy Dominique DATE OF SERVICE: May 06, 2023 TIME: 4:15 PM PATIENT IDENTITY VERIFICATION COMPLETED USING TWO (2) IDENTIFIERS: Name and Date of confirmedby patient verbally. FALL SCREENING: Has the patient had 2 falls in the last year or 1 fall with injury or currently using an Ambulatory Assistive Device (Walker, Cane, Wheelchair, Crutches, etc.)? No PATIENT GENDER DATA: Female. status: : No status: NO. PATIENT RELEVANT IMPLANT DATA REVIEWED: Yes RADIOLOGY DEPARTMENT: General X-ray: Exam(s) Completed: Upper Extremity X- Ray(s): Shoulder, AP / TRUE AP / AXILLARY left PERIPHERAL IV DATA: Not applicable SIGNED BY: RT Renae(R) May 06, 2023 4:15 PM documented in this encounterUc Medical Center06-27-2023 History of Present illness Narrative* Yoel Guzmán APRN.DRAPERY CUTTER MACHINE - 05/06/2023 3:58 PM EDT Images from the original note were not [...] surgeries in the past. Past medical history prescriptionmedication use allergies reviewed. .Patient presents with: Shoulder [...] mg by mouth twice daily. vit calc,iron,folic (PRENAT.VITS,ANISH,FKY-YCQK-OQIMX ORAL) Take by mouth. Joqlinhfjrqwyum-Oaecomtql-IV 2-30-10 mg/5 mL syrup TAKE 5 MILLILITERS [...] Plan of care was discussed with patient. Patientverbalizes understanding and agrees to plan of care. This note was generated using Netadmin software.It may contain errors in wording, punctuation, or spelling. Yoel Guzmán APRN.JANESSA documented in this encounterUc Medical Center06-26-2023 History of Present illness Narrative* Wagner Conte MD - 05/05/2023 1:35 PM EDT Subjective: Saw the patient last month he was having mastodynia on the right side right along whereher incision was where I did her I&D [...] C (98.4 F), height 175.3 cm (5' 9), weight 51.7 kg (114 lb), last menstrual [...] when I palpate her. documented in this encounterUc Medical Center04-25-2023 Discharge summary Author Matthias Lemos [facility] March 05, 2023 1:26am Note Date/Time March 04, 2023 11: 59pm [facility] Medical Records Department [address] [place] [address] Emergency Department Summary 03/04/23 MR#: [id number] Acct: [id number] Name: ROSY DOMINIQUE Rep #:[id number] : 2005 17 From: Matthias Lemos DO PCP: Dr. Connor Martini, Status:[facility] ER Location: ED HPI HPI - Female History of Present Illness Chief Complaint: Vag Bleeding Narrative Narrative: Patient is an 17-year-old female with past medical history of POTS who reports that she had a normal menstrual cycle earlier in the month. He states it lasted5 days which is normal for her and then she had a few days where she was at her baseline. However after that she began with repeat vaginal bleeding which has persisted now for multiple weeks. She denies any contraception use and states she had a home test which was negative. She denies any history of bleeding disorder or blood thinner use but states that with the persistent symptoms she now feels lightheaded and shaky and has concerned that her blood volume may be low and therefore comes in for evaluation. [facility] Medical History Breech presentation History of pre-term labor Lump of breast Mastitis Positive GBS test POTS (postural orthostatic tachycardia syndrome) Premature rupture of membranes Supervision of normal first teen Home Medications naproxen 500 mg tablet 500 mg PO BID #14 tabs 12/10/22 [Rx Last Taken Unknown] Allergy/AdvReac Type Severity Reaction Status Date / Time amoxicillin Allergy Rash Verified 03/04/23 23:36 coconut Allergy Anaphylaxis Verified 03/04/23 23:36 dexmethylphenidate Allergy Itching Verified 03/04/23 23:36 hydrocodone Allergy Rash Verified 03/04/23 23:36 latex Allergy skin Verified 03/04/23 23:36 hayes, headaches onion Allergy Shortness Verified 03/04/23 23:36 of breath vancomycin Allergy Rash Verified 03/04/23 23:36 Family History Mother POTS (postural orthostatic tachycardia syndrome) Grandmother Breast cancer Thyroid disorder Skin cancer Surgical History Status post delivery Social History current occupation: [employer] pets and animals: Yes pets and animals: dog(s) sexually active: Yes Smoking Status: Current some day smoker tobacco type: cigarettes and e- cigarettes alcohol intake: never substance use type: does not use well-balanced diet: daily or most days caffeine: No (not while ) what type of physical activity do you participate in: walking seatbelt use: always ROS ROS ED Constitutional Constitutional ED: Denies chills or fever(s) ENT ENT ED: Denies sore throat Cardiovascular Cardiovascular: Denies chest pain Respiratory/Chest Respiratory/Chest: Denies cough or dyspnea Gastrointestinal Gastrointestinal: Denies abdominal pain, diarrhea, nausea or vomiting Genitourinary Genitourinary ED: Reports other Details: Positive vaginal bleeding ; Denies dysuria Musculoskeletal Musculoskeletal: Denies myalgias Integumentary Denies rash Neurologic Neurologic: Denies headache(s) Hematologic/Lymphatic Hematologic/Lymphatic: Denies easy bleeding or easy bruising EXAM Physical Exam Const Vital Signs: 03/04/23 23:33 Temperature 97.3 F L Temperature Source Temporal Pulse Rate 86 Respiratory Rate 16 Blood Pressure 98/77 L Blood Pressure Mean 84 Pulse Ox 99 Oxygen Delivery Method Room Air Positive well nourished and well developed General Appearance ED: well developed; Negative for pallor Eyes PERRL and EOMs intact bilaterally General Eye ED: Negative for pale conjunctiva Neck supple Resp normal respiratory effort and clear to auscultation bilaterally Cardio regular rate and regular rhythm GI normal to inspection, nondistended, normoactive bowel sounds, soft to palpation,non-tender, non-distended and no masses GI Narrative: No voluntary guarding or rigidity no pulsatile mass Auscultation: normoactive bowel sounds Palpation: soft Narrative: Patient deferred Back/Spine no CVA tenderness Extremity normal to inspection Neuro oriented x3 and CN's II-XII intact bilaterally Sensorium / Orientation: alert Psych Psych Narrative: Patient has a nervous/anxious affect Skin no rashes or lesions noted Skin Narrative: Capillary refills less than 3 seconds General Skin Exam: Negative for pallor MDM MDM MDM Narrative Medical decision making narrative: Patient presented to the ER with stable vitals and a soft nonsurgical abdomen. She reported essentially daily vaginal bleeding for the month of February. Differential diagnosis includes dysfunctional uterine bleeding complications such as ectopic or subchorionic hemorrhage or acute blood loss anemia. With this concern basic blood work was obtained. I felt no need for an emergent ultrasound as patient's abdomen is soft and nonsurgical andas long as she is not there is no need for emergent imaging studies. Labs revealed a stable H&H with hemoglobin of 13 hematocrit of 40.5 and normal platelets. Serum test is negative and kidney function electrolytes are normal as well. At this time patient's vitals are remained stable she is not showing changes concerning for acute blood loss anemia and as her test is negative there is no concern for complication. Patient was advised to follow-up with her CLASSIFIED ADVERTISING CLERK to discuss need for hormone therapy to regulate her menstrual cycle but is otherwise safe for discharge with negative work-up History & Record Review Discussion w/independent historian: Patient and Friend Lab Data Attestation: I reviewed the patient's lab results. Labs: Laboratory Results - last 24 hr 03/05/23 03/05/23 03/05/23 00:15 00:15 00:15 WBC 5.7 RBC 4.71 Hgb 13.0 Hct 40.5 MCV 86.0 MCH 27.6 MCHC 32.1 RDW Std Deviation 46.0 H RDW Coeff of Jessica 14.5 Plt Count 247 MPV 11.5 Immature Gran % (Auto) 0.200 Neut % (Auto) 39.5 Lymph % (Auto) 51.5 H Pike % (Auto) 6.4 H Eos % (Auto) 1.9 Baso % (Auto) 0.5 Absolute Neuts (auto) 2.2 Absolute Lymphs (auto) 2.91 Nucleated RBC % 0 Sodium 137 Potassium 3.5 Chloride 107 Carbon Dioxide 26.0 Anion Gap 4 L BUN 13 Creatinine 0.84 Estim Creat Clear Calc 86.93 Est GFR (MDRD) Af Amer 114 Est GFR (MDRD) Non-Af 94 BUN/Creatinine Ratio 15.6 Glucose 85 Calcium 9.2 Serum , Qual NEGATIVE Discharge Plan Triage Chief Complaint: Vag Bleeding ED Provider: Matthias Lemos Dx/Rx/DC Orders Clinical Impression: DUB (dysfunctional uterine bleeding) Instructions: ED Dysfunctional Uterine Bleeding Prescriptions: No Action naproxen 500 mg tablet 500 mg PO BID Qty: 14 0RF Primary Care Provider: Connor Martini Referrals: Etelvina Calderon DO [Med Staff - Active Staff] - Connor Martini DO [Primary Care Provider] - Activity Restrictions/Additional Instructions: Your work-up today does not show any acute blood loss requiring blood transfusion and you are not . 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 Return to the ER should you have any further concerns Disposition Disposition: Home, Self Care What to do if you have Problems For any increased pain, shortness of breath, bleeding, nausea or vomiting, chestpain, or any unexpected problems, contact your Primary Care Provider. Call [facility] ([phone]) or report to the closest Emergency Room. Call 911 if necessary. 03/05/23125 <Electronically signed by Matthias Lemos DO> Cosigner Signature (if applicable): CC: Dr. Connor Martini DO ~ Signed [facility] Work Phone: [phone] Miscellaneous Notes* Telephone Encounter - Tatiana Noe, BASEBALL GLOVE SHAPER - 01/21/2023 12:28 PM EDT Pharmacy comment: Backordered Medication BROMFED IS ON BACK ORDER -- ANYTHING YOU WANT TO INTERCHANGE THIS FOR? documented in this encounter[facility]23 Miscellaneous Notes* Telephone Encounter - Jose A Rojas - 01/20/2023 10:19 AM EDT Patient given results and verbalized understanding of instructions given. Jose A Rojas * Telephone Encounter - Hallie Torres APRN.CNP - 01/20/2023 9:49 AM EDT Patient is positive for COVID and negative for flu. Please notify patient that she should quarantine for 5 days then mask for another 5 days. documented in this encounterU[facility]03-12-2023 Instructions* Patient Instructions* Mer Bardales APRN.CNP - 01/19/2023 1:25 PM EDT ASSESSMENT/PLAN: 1. Sore throat - ICD9: 462, ICD10: J02.9 (primary diagnosis) - Alere Strep Test negative, no culture pending - STREP A MOLECULAR (POC) 2. Viral URI - ICD9: 465.9, ICD10: J06.9 - Discussed viral etiology and rationale for treatment. - Symptomatic treatment with prn analgesia - Supportive care with fluids and rest - XELFYKPYZXVXULQ-VXJTZMKZPVPTESC-RI 2 MG-30 MG-10 MG/5 ML ORAL SYRUP [...] Additionally, you can prime your body's immune system.This may help you get better more quickly. Drink lots of fluids Make sure you are eating well Get plenty of rest We do not have any medications that kill off these viruses. Antibiotics are used to treat bacterialinfections; however, they are not active against viral infections. There are some things that mighthelp you feel better, though. Vaporizers, humidifiers, hot showers, and hot fluids help open respiratory and sinus passages [place] [facility] [place] may offer relief of nasal and head [...] worse rather than better documented in this encounterUc [facility] Center03-12-2023 History of Present illness Narrative* Mer Bardales APRN.JANESSA - 01/19/2023 1:11 PM EDT Subjective Sore Throat Associated symptoms include congestion, [...] levETIRAcetam (KEPPRA) 500 mg tablet vit calc,iron,folic (PRENAT.VITS,ANISH,BUG-XIHG-ODNOG ORAL) Take by mouth. acetaminophen 325 mg [...] Supportive care with fluids and rest - FNVJIHPQVBUVQZD-FVLGOJAPUTFVILS-GP 2 MG-30 MG-10 MG/5 ML ORAL SYRUP - COVID WITH FLUA+B, ROUTINE - Follow-up with your PCP in 3-5 days if symptoms have not improved or sooner if symptoms worsen - Discussed red flags and need for immediate medical evaluation if any occur. - Discussed supportive care treatment with fluids, rest and analgesia. - Discussed expected course of illness Mer Bardales APRN.DRAPERY CUTTER MACHINE documented in this encounterUc Medical Center02-16-2023 Hospital Discharge instructions Patient Education 12/26/2022 19:21:32 Headache, Unspecified Headache, Unspecified A number of things can cause headaches. The cause of your headache isn t clear. But it doesn t seemto be a sign of any serious illness. [...] face You have trouble talking or seeing [id number] [employer]. [address] [place] [address]. All rights reserved. This information is not intended as a substitute for professional medical care. Always follow yourhealthcare professional's instructions. Follow Up Care 12/26/2022 18:22:48 With:CONNOR MARTINI DO Address: [address] [place], [place] [id number]- When:2-4 days [facility] 02-16-2023 Emergency department Discharge summary Discharge Instructions Thank you for allowing [facility] to assist you with your healthcare needs. The following is importantdischarge information regarding your hospital visit. Diagnosis from [...] Schedule the Following Appointments Follow Up with CONNOR MARTINI DO When Within 2-4 days Where: [address] [facility] [place] [address] [place] [address]- Allergies lidocaine Vicodin amoxicillin bupivacaine chloroprocaine vancomycin Medications Please ask your primary doctor or pharmacist before taking any other medication not listed, including over the counter drugs, herbal medications, vitamins and or supplements as they may interact withyour home medications. What How Much When Instructions [...] isn t clear. But it doesn t seemto be a sign of any serious illness. [...] face You have trouble talking or seeing [phone] [employer]. [address] [place] [address], [place] [address]. All rights reserved. This information is not intended as a substitute for professional medical care. Always follow yourhealthcare professional's instructions. Additional Information VACCINATE! IT SAVES LIVES! Members of the community who have not yet received the COVID-19 vaccine and would like to receive it can visit one of [facility] vaccine clinics. There are many vaccine clinic locations within the [facility]. For locations and available times, please visit www.[email or web address]/. It is important to note that some COVID mobile vaccine clinics are held outdoors and may be canceled in rainy or stormy conditions. To learn more about pediatric vaccinations (ages 5-11), we invite you to visit the [facility] webpage. https://www.[facility].org/pages/0607-Mwhme-Efginoybkev-Tsaxalzooq-Hoxju-Jif stions.htmlTo learn more about the COVID-19 vaccine, we invite you to visit the CDC website for a list of frequently asked questions. https://www.cdc.gov/coronavirus/2019-ncov/vaccines/faq.html [facility] Patient Portal Access Instructions: Stay connected with your healthcare team and access your personal medical information anytime with the [facility] Patient Portal. If you would like a full copy of your medical records please contact the [facility] Medical Records Department Friday through Friday between 8a.m. and 4:30p.m. Please follow the directions below to access the portal: 1.Access the email account you provided upon registration to the [facility].2.Look for an invitation email from [facility].3.Open the email and access the invitation link: Accept Invitation to [facility]4.Fill in the required cuevas to create your account. Sign into [email or web address] with your username and password that you [...] you will allow to register on the [facility] Patient Portal for access to your information. You can also access the [facility] Patient Portal on the [employer] elias. Simply click on Health Records under [employer] and then click on the [facility] logo. HOW TO SAFELY DISPOSE OF PRESCRIPTION MEDICATIONS Please use one of the following methods to safely dispose of your unused medications. 1.Use a drug disposal kit: the drug disposal pouch allows you to safely discard your old and unuseddrugs. Ask your nurse to give you one when you are discharged.2.Visit a local take-back location: Many local pharmacies and police departments have programs that collect old and unwanted prescriptiondrugs. Call your local pharmacy or go to http://Availendar.mChron/6A3Wf8a to find one close to you.3.Make use of household items: Use cat litter or old coffee grounds to dispose medications if other options arenot available. Mix your drugs with these household products, seal them in an airtight container andthrow it into the garbage. Call [facility]: [phone] to be sure your drugs can be [...] drowsiness, such as benzodiazepines, also known as benzos,including diazepam and alprazolam, muscle relaxants or sleep aids. Never sell or share prescriptionopioids. This is illegal. Store opioids in a secure place and out of reach of others (including children, family, friends and visitors). The last page(s) of this document has been signed and retained as a CHART COPY Signatures Patient Education Materials Headache, Unspecified Medication Leaflets My discharge plan and instructions have been reviewed and explained to me and ITRIP ASHLEE L understand my current condition and have read and understand these discharge instructions. I have received a written copy of the plan/instructions. If I have questions, I am aware that I should contact my doctor. Patient/Electronic Tester Signature: Date/Time: Relationship to Patient: Witness Name/Signature: Date/Time: [facility]02-16-2023 Note ORIGINAL EXAMINATION: CT OF THE HEAD WITHOUT CONTRAST 12/26/2022 7:21 pm TECHNIQUE: CT of the head was performed without the administration of intravenous contrast. Automated exposure control, iterative reconstruction, and/or weight based adjustment of the mA/kV was utilized to reduce the radiation dose to as low as reasonably achievable. COMPARISON: 12/24/2022. HISTORY: ORDERING SYSTEM PROVIDED HISTORY: Reason for Exam: fernández FINDINGS: BRAIN/VENTRICLES: There is no acute intracranial hemorrhage, mass effect or midline shift. No abnormal extra-axial fluid collection. The linares-white differentiation is maintained without evidence of an [...] 12/26/2022 7:39:15 PM Ordering Provider: TAMMY SNIDER [facility]02-16-2023 Note ORIGINAL EXAMINATION: CT OF THE HEAD WITHOUT CONTRAST 12/26/2022 7:21 pm TECHNIQUE: CT of the head was performed without the administration of intravenous contrast. Automated exposure control, iterative reconstruction, and/or weight based adjustment of the mA/kV was utilized to reduce the radiation dose to as low as reasonably achievable. COMPARISON: 12/24/2022. HISTORY: ORDERING SYSTEM PROVIDED HISTORY: Reason for Exam: fernández FINDINGS: BRAIN/VENTRICLES: There is no acute intracranial hemorrhage, mass effect or midline shift. No abnormal extra-axial fluid collection. The linares-white differentiation is maintained without evidence of an [...] Sign Date: 12/26/2022 7:39:15 PM Ordering Provider: [facility]02-16-[address] Brody [facility] December 26, 2022 10:33pm Note Date/Time December 26, 2022 10:33pm [facility] Medical Records Department [address] [place] [address] Emergency Department Summary 12/26/22 MR#: [id number] Acct: [id number] Name: ROSY DOMINIQUE Rep #:[id number] : 2005 17 From: Maria Guadalupe Brody MD PCP: Dr. Connor Martini, DO Status:[facility] ER Location: ED HPI History of Present Illness Chief Complaint: Head Injury Narrative Narrative: Patient sustained a head injury with loss of consciousness 2 days ago she has been feeling off since then. She had another syncopal episode also. No fevers chills cough or congestion. No vision changes no weakness or paresthesias. [facility] Medical History Breech presentation History of pre-term labor Lump of breast Mastitis Positive GBS test POTS (postural orthostatic tachycardia syndrome) Premature rupture of membranes Supervision of normal first teen Home Medications naproxen 500 mg tablet 500 mg PO BID #14 tabs 12/10/22 [Rx Last Taken Unknown] Allergy/AdvReac Type Severity Reaction Status Date / Time amoxicillin Allergy Rash Verified 12/10/22 01:19 coconut Allergy Anaphylaxis Verified 12/10/22 01:19 dexmethylphenidate Allergy Itching Verified 12/10/22 01:20 hydrocodone Allergy Rash Verified 12/10/22 01:19 latex Allergy skin Verified 12/10/22 01:19 hayes, headaches onion Allergy Shortness Verified 12/10/22 01:19 of breath vancomycin Allergy Rash Verified 12/10/22 01:19 Family History Mother POTS (postural orthostatic tachycardia syndrome) Grandmother Breast cancer Thyroid disorder Skin cancer Surgical History Status post delivery Social History current occupation: [employer] pets and animals: Yes pets and animals: dog(s) sexually active: Yes Smoking Status: Current some day smoker tobacco type: cigarettes and e- cigarettes alcohol intake: never substance use type: does not use well-balanced diet: daily or most days caffeine: No (not while ) what type of physical activity do you participate in: walking seatbelt use: always ROS ROS ED ROS Narrative Social: Noncontributory Medications: Reviewed Past medical history: Reviewed Review of systems General: Head injury with loss of consciousness HEENT: No facial injury Neck: No neck pain Cardiovascular: Patient denies any chest pain or palpitations Chest wall: No chest wall contusions Respiratory: There is no shortness of breath GI: There is no nausea vomiting diarrhea or abdominal pain, no abdominal wall contusions Skin: No lacerations or abrasions Neurological: Patient has no memory loss, confusion, or any focal weakness Psychiatric: No recent behavioral changes Back: No back pain, no problems with ambulation Musculoskeletal: No extremity injury All other systems are reviewed and normal EXAM Physical Exam Narrative Exam Narrative: Physical exam Vitals reviewed General: Does not appear in significant distress, no obvious injuries HEENT: No facial injury Head: No head injury Eyes: Extraocular movements intact Neck: No C-spine tenderness with full range of motion Heart: Regular rate normal pulses Chest wall: No chest wall pain Lungs clear lungs bilaterally with normal inspiration and expiration without tachypnea GI: Abdomen is soft and nontender there is no mass no guarding no abdominal wallcontusion : Stable pelvis Musculoskeletal: Moves all extremities without any signs of trauma Skin: No abrasions or laceration Neurological: Patient is alert and oriented with no focal deficits Const Vital Signs: 12/26/22 20:27 12/26/22 22:00 Temperature 97.1 F L Temperature Source Temporal Pulse Rate 90 Respiratory Rate 16 Respiratory Effort Normal Non-Labored Respiratory Pattern Normal Blood Pressure 114/93 H Blood Pressure Mean 100 Pulse Ox 94 Oxygen Delivery Method Room Air [facility] Lab Data Labs: Laboratory Results - last 24 hr 12/26/22 21:58 POC Glucose 86 Radiography Diagnostic Testing: Clinical Impression(s) from Imaging Studies Brain CT 12/26/22 21:37 IMPRESSION: 1. Normal CT examination of brain. 2. No intracranial evidence of acute traumatic injury. 3. No intracranial mass, hemorrhage or acute territorial infarct. 4. No craniofacial fractures. 5. No radiographically significant sinus disease.. Electronically Signed: Soham Hastings MD at 22:23 [facility] , Treatment and Re-Evaluation Narrative: I discussed the patient with her boyfriend in the room, she has concussion with loss of consciousness. CT was ordered and unremarkable, her blood sugar was normal, she tells me she has had problems with blood sugars in the past. I believe he is stable for discharge. Discharge Plan Triage Chief Complaint: Head Injury ED Provider: Maria Guadalupe Brody Dx/Rx/DC Orders Clinical Impression: Concussion with loss of consciousness, Headache Instructions: ED Head Injury (Adult) Prescriptions: No Action naproxen 500 mg tablet 500 mg PO BID Qty: 14 0RF Primary Care Provider: Connor Martini Referrals: Connor Martini DO [Primary Care Provider] - 3-5 Days Disposition Disposition: Home, Self Care What to do if you have Problems For any increased pain, shortness of breath, bleeding, nausea or vomiting, chestpain, or any unexpected problems, contact your Primary Care Provider. Call [facility] ([phone]) or report to the closest Emergency Room. Call 911 if necessary. 12/26/222232 <Electronically signed by Maria Guadalupe Brody MD> Cosigner Signature (if applicable): CC: Dr. Connor Martini, ~ Signed [facility] Work Phone: [phone]) 603-337602-15-2023 Hospital Discharge instructions Patient Education 12/24/2022 23:58:08 Back and [...] spine cause the pain. it is usually causedby an injury, whether known or not, to [...] your side with your knees bent up towardsyour chest and a pillow between your knees. [...] not use a heating pad at bedtime. Sleepingwith a heating pad can lead to skin [...] are taking other medicines. You may use hqco-wjt-yffvpzc medicine to control pain, unless another pain medicine was prescribed.If you have chronic conditions like diabetes, liver or kidney disease, stomach ulcers, gastrointestinal bleeding, or are taking blood thinner medicines. Be careful if you are given pain medicines, narcotics, or medicine for muscle spasm. They can causedrowsiness, and can affect your coordination, reflexes, and judgment. Do not drive or operate heavymachinery. Follow-up care Follow up with your healthcare [...] or as directed by your healthcare provider [phone] [employer]. [address] [place] [address]. All rights reserved. This information is not intended as a substitute for professional medical care. Always follow yourhealthcare professional's instructions. 12/24/2022 23:01:58 Head Injury (Adult) [...] area for up to 20 minutes at atime. Do this as often as directed. Use [...] the ears or bruising around the eyes [phone] [employer]. [address] [place] [address]. All rights reserved. This information is not intended as a substitute for professional medical care. Always follow yourhealthcare professional's instructions. 12/24/2022 23:01:55 Causes of Syncope [...] in your legs. When this happens, your brainmay not get all the blood it needs. [...] slow down and lower blood pressure. This canresult in syncope. This may also follow exercise, eating, laughter, weight lifting, or playing musical instruments like the trumpet or trombone. When heart trouble causes syncope A heart problem can lower the amount of oxygen-rich blood that gets to the brain. Heart trouble canbe serious and even life threatening if not [...] a hardened or scarred valve may not openor close fully. As a result, less blood [...] may need to be seen by a email manager, neurologist, or an ear, nose, and throat specialist. Don't drive, operate heavy machinery, or do activities in which you could fall and injure yourself if you have syncope and have not been evaluated. [phone] The [employer]. [address] [place] [address], [place] [address]. All rights reserved. This information is not intended as a substitute for professional medical care. Always follow yourhealthcare professional's instructions. Follow Up Care 12/24/2022 22:48:04 With:[facility] Address: [address] [place], [place] [id number]- Business (1) When:2-4 days With:Go to emergency room if symptoms worsen Address:Unknown When:2-4 days With:CONNOR MARTINI DO Address: [address] [place] [address]- When:2-[address] [facility] 02-15-2023 Note Discharge Instructions Thank you for allowing [facility] to assist you with your healthcare needs. The following is importantdischarge information regarding your hospital visit. Diagnosis from Today's Visit Syncope Head injury Neck pain Closed head injury with LOC What to Do Next Instructions from Your Care Team Follow-up with your primary care provider. Follow-up with [facility]. Return emergency department if experience worsening symptoms, nausea, vomiting, worsening headaches, change in vision, numbness, weakness, or any other care concern. No qualifying data available. Post Acute Orders No qualifying data available. You Need to Schedule the Following Appointments Follow Up with [facility] When Within 2-4 days Where: [address] [place] [address] [facility] (1) Follow Up with Go to emergency room if symptoms worsen When Within 2-4 days Follow Up with CONNOR MARTINI DO When Within 2-4 days Where: [address] [place] [address]- Allergies lidocaine Vicodin amoxicillin bupivacaine chloroprocaine vancomycin Medications Please ask your primary doctor or pharmacist before taking any other medication not listed, including over the counter drugs, herbal medications, vitamins and or supplements as they may interact withyour home medications. What How Much When Instructions [...] spine cause the pain. it is usually causedby an injury, whether known or not, to [...] your side with your knees bent up towardsyour chest and a pillow between your knees. [...] not use a heating pad at bedtime. Sleepingwith a heating pad can lead to skin [...] are taking other medicines. You may use lsqi-mnf-glbxbmx medicine to control pain, unless another pain medicine was prescribed.If you have chronic conditions like diabetes, liver or kidney disease, stomach ulcers, gastrointestinal bleeding, or are taking blood thinner medicines. Be careful if you are given pain medicines, narcotics, or medicine for muscle spasm. They can causedrowsiness, and can affect your coordination, reflexes, and judgment. Do not drive or operate heavymachinery. Follow-up care Follow up with your healthcare [...] or as directed by your healthcare provider [phone] The [employer]. [address] [place] [address], [place] [address]. All rights reserved. This information is not intended as a substitute for professional medical care. Always follow yourhealthcare professional's instructions. Head Injury (Adult) You have [...] area for up to 20 minutes at atime. Do this as often as directed. Use [...] the ears or bruising around the eyes [phone] The [employer]. [address] [place] [address]. All rights reserved. This information is not intended as a substitute for professional medical care. Always follow yourhealthcare professional's instructions. Causes of Syncope Syncope (fainting) [...] in your legs. When this happens, your brainmay not get all the blood it needs. [...] slow down and lower blood pressure. This canresult in syncope. This may also follow exercise, eating, laughter, weight lifting, or playing musical instruments like the trumpet or trombone. When heart trouble causes syncope A heart problem can lower the amount of oxygen-rich blood that gets to the brain. Heart trouble canbe serious and even life threatening if not [...] a hardened or scarred valve may not openor close fully. As a result, less blood [...] may need to be seen by a email manager, neurologist, or an ear, nose, and throat specialist. Don't drive, operate heavy machinery, or do activities in which you could fall and injure yourself if you have syncope and have not been evaluated. [phone] The [employer]. [address] [place] [address]. All rights reserved. This information is not intended as a substitute for professional medical care. Always follow yourhealthcare professional's instructions. Additional Information VACCINATE! IT SAVES LIVES! Members of the community who have not yet received the COVID-19 vaccine and would like to receive it can visit one of [facility] vaccine clinics. There are many vaccine clinic locations within the [facility]. For locations and available times, please visit [email or web address]. It is important to note that some COVID mobile vaccine clinics are held outdoors and may be canceled in rainy orstormy conditions. To learn more about pediatric vaccinations (ages 5-11), we invite you to visit the [facility] webpage. https://www.[facility].org/pages/8695-Waxve-Wqufwhslnkn-Ltogibzvke-Tfijg-Spk stions.htmlTo learn more about the COVID-19 vaccine, we invite you to visit the [employer] website for a list of frequently asked questions. https://[employer].UZwan/assets/Uxvjvwkb-dnt-Ixzkfmpv/xdsaq-Juqjjla-Wfzrdyrled _Asked-Questions.pdf [facility] Patient Portal Access Instructions: Stay connected with your healthcare team and access your personal medical information anytime with the [facility] Patient Portal. If you would like a full copy of your medical records please contact the [facility] Medical Records Department Friday through Friday between 8a.m. and 4:30p.m. Please follow the directions below to access the portal: 1.Access the email account you provided upon registration to the [facility].2.Look for an invitation email from [facility].3.Open the email and access the invitation link: Accept [facility]itation to [facility]4.Fill in the required cuevas to create your account. Sign into [email or web address] [employer] with your username and password that you [...] you will allow to register on the [facility] Patient Portal for access to your information. You can also access the [employer] Patient Portal on the [employer] elias. Simply click on Health Records under 7digital and then click on the [employer] logo. HOW TO SAFELY DISPOSE OF PRESCRIPTION MEDICATIONS Please use one of the following methods to safely dispose of your unused medications. 1.Use a drug disposal kit: the drug disposal pouch allows you to safely discard your old and unuseddrugs. Ask your nurse to give you one when you are discharged.2.Visit a local take-back location: Many local pharmacies and police departments have programs that collect old and unwanted prescriptiondrugs. Call your local pharmacy or go to http://bit.mChron/9T0Sg2a to find one close to you.3.Make use of household items: Use cat litter or old coffee grounds to dispose medications if other options arenot available. Mix your drugs with these household products, seal them in an airtight container andthrow it into the garbage. Call [facility]: [phone] to be sure your drugs can be [...] drowsiness, such as benzodiazepines, also known as benzos,including diazepam and alprazolam, muscle relaxants or sleep aids. Never sell or share prescriptionopioids. This is illegal. Store opioids in a [...] aware that I should contact my doctor. Patient/Electronic Tester Signature: Date/Time: Relationship to Patient: Witness Name/Signature: Date/Time: [facility]02-14-2023 Note ORIGINAL EXAMINATION: ONE XRAY VIEW OF [...] Sign Date: 12/24/2022 11:51:49 PM Ordering Provider: [facility]02-14-2023 Note ORIGINAL EXAMINATION: CT OF THE HEAD [...] shift. No abnormal extra-axial fluid collection. The linares-white differentiation is maintained without evidence of an [...] Sign Date: 12/24/2022 11:51:21 PM Ordering Provider: [facility]02-14-2023 Note ORIGINAL EXAMINATION: CT OF THE CERVICAL [...] Sign Date: 12/24/2022 11:50:56 PM Ordering Provider: [facility]02-14-2023 Note ORIGINAL EXAMINATION: ONE XRAY VIEW OF [...] Sign Date: 12/24/2022 11:51:49 PM Ordering Provider: [facility]02-14-2023 Note ORIGINAL EXAMINATION: CT OF THE HEAD [...] shift. No abnormal extra-axial fluid collection. The linares-white differentiation is maintained without evidence of an [...] Sign Date: 12/24/2022 11:51:21 PM Ordering Provider: [facility]02-14-2023 Note ORIGINAL EXAMINATION: CT OF THE CERVICAL [...] Sign Date: 12/24/2022 11:50:56 PM Ordering Provider: [facility]02-02-2023 Miscellaneous Notes* Telephone Encounter - Jennifer Castaneda RN - 12/12/2022 3:09 PM EST Called and spoke to patient to get [...] ER visit and her concerns. No further qu estions appreciates the call documented in this encounter[facility]23 History of Present illness Narrative* HAKEEM Sanders - 12/06/2022 11:08 AM EST This note was created using [employer]. Subjective Rosy Dominique is a 17 year [...] clear. No tonsillar swelling. No exudate. No CALL BOX WIRER seen. Uvula midline. Handling secretions. No trismus. [...] swelling on my exam. No lymphadenopathy. No CALL BOX WIRER. -Likely throat pain is referred pain from [...] ER evaluation. HAKEEM Sanders documented in this encounterU[facility] Center12-[facility]22 Hospital Discharge instructions Patient Education 10/14/2022 14:14:03 Gastritis (Adult) [...] can help reduce stomach irritation and help itheal. If you have been prescribed medicines for [...] or as directed by your healthcare provider [id number] The [employer]. [address] [place] [address], [place] [address]. All rights reserved. This information is not intended as a substitute for professional medical care. Always follow yourhealthcare professional's instructions. Follow Up Care 10/14/2022 12:13:01 With:Go to emergency room if symptoms worsen Address:Unknown When:2-4 days With:CONNOR MARTINI DO Address: [address] [place] [phone]- When:2-4 days With:BART CALLEJAS MD Address: [address] [place] [address] [address] [place], [place] [phone]- [phone] When:5 to 7 days [facility] 12-05-2022 Emergency department Discharge summary Discharge Instructions Thank you for allowing [facility] to assist you with your healthcare needs. The following is importantdischarge information regarding your hospital visit. Diagnosis from Today's Visit Gastritis UTI - Urinary tract infection Vomiting blood What to Do Next Instructions from Your Care Team No qualifying data available. Post Acute Orders No qualifying data available. You Need to Schedule the Following Appointments Follow Up with Go to emergency room if symptoms worsen When Within 2-4 days Follow Up with CONNOR MARTINI DO When Within 2-4 days Where: [address] [place] [id number]- Follow Up with BART CLALEJAS MD When Within 5 to 7 days Where: [facility] [address] [place] [address] [phone] Allergies lidocaine Vicodin amoxicillin bupivacaine chloroprocaine vancomycin Medications Please ask your primary doctor or pharmacist before taking any other medication not listed, including over the counter drugs, herbal medications, vitamins and or supplements as they may interact withyour home medications. What How Much When Instructions [...] can help reduce stomach irritation and help itheal. If you have been prescribed medicines for [...] or as directed by your healthcare provider [phone] [employer]. [address] [place] [address]. All rights reserved. This information is not intended as a substitute for professional medical care. Always follow yourhealthcare professional's instructions. Additional Information VACCINATE! IT SAVES LIVES! Members of the community who have not yet received the COVID-19 vaccine and would like to receive it can visit one of [facility] vaccine clinics. There are many vaccine clinic locations within the [facility]. For locations and available times, please visit [email or web address]. It is important to note that some COVID mobile vaccine clinics are held outdoors and may be canceled in rainy orstormy conditions. To learn more about pediatric vaccinations (ages 5-11), we invite you to visit the [facility] webpage. [email or web address] learn more about the COVID-19 vaccine, we invite you to visit the [facility] website for a list of frequently asked questions. [email or web address] [facility] Patient Portal Access Instructions: Stay connected with your healthcare team and access your personal medical information anytime with the [facility] Patient Portal. If you would like a full copy of your medical records please contact the [facility] Medical Records Department Friday through Friday between 8a.m. and 4:30p.m. Please follow the directions below to access the portal: 1.Access the email account you provided upon registration to the [facility].2.Look for an invitation email from [facility].3.Open the email and access the invitation link: Accept Invitation to [facility]4.Fill in the required cuevas to create your account. Sign into [email or web address] with your username and password that you [...] you will allow to register on the [facility] Patient Portal for access to your information. You can also access the [facility] Patient Portal on the [employer]. Simply click on Health Records under [employer]digital and then click on the [employer] logo. HOW TO SAFELY DISPOSE OF PRESCRIPTION MEDICATIONS Please use one of the following methods to safely dispose of your unused medications. 1.Use a drug disposal kit: the drug disposal pouch allows you to safely discard your old and unuseddrugs. Ask your nurse to give you one when you are discharged.2.Visit a local take-back location: Many local pharmacies and police departments have programs that collect old and unwanted prescriptiondrugs. Call your local pharmacy or go to http://Availendar.mChron/1D1Nn8q to find one close to you.3.Make use of household items: Use cat litter or old coffee grounds to dispose medications if other options arenot available. Mix your drugs with these household products, seal them in an airtight container andthrow it into the garbage. Call [facility]: [phone] to be sure your drugs can be [...] drowsiness, such as benzodiazepines, also known as benzos,including diazepam and alprazolam, muscle relaxants or sleep aids. Never sell or share prescriptionopioids. This is illegal. Store opioids in a [...] aware that I should contact my doctor. Patient/Electronic Tester Signature: Date/Time: Relationship to Patient: Witness Name/Signature: Date/Time: [facility]12-05-2022 Evaluation + Plan note Diagnostic Tests Pending * Urine Culture 10/14/22 [facility] 12-05-2022 Note ORIGINAL EXAMINATION: CT OF THE ABDOMEN AND PELVIS WITH OKTAOLCV07/5/2022 1:34 pm TECHNIQUE: CT of the abdomen [...] within the abdomen or pelvis. Interpreted by: Camilla Ribeiro DO Preliminary Report By: Camilla Ribeiro DO Electronically signed By Camilla Ribeiro DO Dictated Date: 10/14/2022 1:35:48 PM Prelim Date: 10/14/2022 1:41:53 PM Sign Date: 10/14/2022 1:41:53 PM Ordering Provider: MATTEO ORTIZ [facility]12-05-2022 Note ORIGINAL EXAMINATION: CT OF THE ABDOMEN AND PELVIS WITH JCWARJXA37/5/2022 1:34 pm TECHNIQUE: CT of the abdomen [...] within the abdomen or pelvis. Interpreted by: Camilla Ribeiro DO Preliminary Report By: Camilla Ribeiro DO Electronically signed By Camilla Ribeiro DO Dictated Date: 10/14/2022 1:35:48 PM Prelim Date: 10/14/2022 1:41:53 PM Sign Date: 10/14/2022 1:41:53 PM Ordering Provider: [facility]11-04-2022 History of Present illness Narrative* Sonam Guadalupe PA-C - 09/13/2022 2:57 PM EDT Patient presents with: Follow Up: Breast abscess [...] she was noted to be having some linares-green drainage and was initiated on vinegar/saline dressing [...] plan. Sonam Guadalupe PA-C documented in this encounterUc [facility] Center11-01-2022 History of Present illness Narrative* Anita Garcia RT(R) - 09/10/2022 11:00 AM EDT Radiology Service Progress Note PATIENT NAME: Rosy Dominique DATE OF SERVICE: September 10, 2022 TIME: 10:59 AM PATIENT IDENTITY VERIFICATION COMPLETED USING TWO (2) IDENTIFIERS: Name and Date of confirmedby patient verbally. FALL SCREENING: Has the patient [...] IV DATA: Not applicable SIGNED BY: RT Hussein(R) September 10, 2022 10:59 AM documented in this encounterUc Medical Center11-01-2022 Instructions* Patient Instructions* Yoel Guzmán APRN.JANESSA - 09/10/2022 10:52 AM EDT How to Manage Common Symptoms Associated with COVID for Adults Fever- Fever is a temperature over 100.4 F and can occur when the body is fighting an infection. Tohelp treat a fever: Drink plenty of fluids and stay well hydrated. Eat small amounts of easy to digest food. Rest. Your body needs rest to recover, but getting up and moving around the house frequently is a good idea. You should try to continue doing your normal daily activities (bathing, toileting, grooming, cooking), though you will probably feel tired, and need to rest often. Avoid any heavy activity or exercise, as this will increase your body temperature. Dress in light clothing and stay covered in a light sheet. Keep the room temperature cool. Take a slightly warm (not cold or cool) bath, or apply damp washcloths to the forehead and wrists. Cough- Cough is a common symptom associated with COVID and can be bothersome. To help treat a cough: Stay well hydrated. Try warm water or tea with lemon and/or honey to help soothe the cough. Use a humidifier to add moisture to the air. Try a product with menthol, like a cough drop or a rub for your chest such as Vicks, which can helpreduce cough. Try cough drops. Avoid smoking and other strong odors or perfumes. Try breathing exercises to keep your lungs open and clear. Take a big deep breath through your noseand hold for 5 seconds before slowly releasing. Repeat frequently, while you are awake. Congestion- Runny nose or nasal congestion can occur with COVID. Treatment can help relieve symptoms: Try OTC nasal saline spray, or nasal saline rinse to relieve mucus congestion. Nasal strips can help keep nasal passages open, to increase airflow. Elevating your head with an extra pillow in bed can help reduce congestion. Using a humidifier can increase moisture in the air, and make breathing easier. Sore Throat- Another common symptom with COVID, can be managed at home by: Stay well hydrated. Gargle with salt water - mix teaspoon salt with 1 cup of warm water and gargle. This helps to loosen mucus in the back of the throat and may reduce discomfort. Try ice chips, popsicles or lozenges to soothe the throat. Nausea/Vomiting/Diarrhea- These are common symptoms, and staying hydrated is most important. If you are nauseous or vomiting, start with small sips of water every 10-15 minutes and increase astolerated. You can try sucking an ice cube too. If tolerating, you can try pedialyte or Gatorade, or flat sprite or esperanza-maren. Start slowly and increase as you are able to. Instead of meals, try smaller, more frequent snacks. Try eating bland foods like crackers, toast, rice, and applesauce. Avoid spicy, greasy or fried foods and dairy containing foods. Even if you aren't feeling hungry due to lack of smell or taste, it is important to try to take in some food when you are able. After drinking and eating, rest in an upright position for up to two hours as needed to help decrease nauseous feelings. Try closing your eyes, avoid moving and watching TV. Avoid strong odors that can make you feel more nauseated. When to seek emergency medical attention Look for emergency warning signs for COVID-19. If having any of these symptoms, seek emergency medical care immediately: Trouble breathing Persistent pain or pressure in the chest New confusion Inability to wake or stay awake Bluish lips or face *This list is not all possible symptoms. Please call your medical provider for any other symptoms that are severe or concerning to you. documented in this encounterUc [facility] Center11-01-2022 History of Present illness Narrative* Yoel Guzmán APRN.CNP - 09/10/2022 10:41 AM EDT Subjective HPI Nontoxic-appearing female presents urgent care chief plaint sore throat headache cough congestion fever. Duration of symptoms 4 days. Associated symptoms listed above. Presents today for evaluation. States she recently was discharged from the hospital for a breast abscess. Abscess was positive for MRSA. Did have a follow-up with surgeon recently negative ultrasound. Presents today for evaluation.No known sick contacts. Denies any OTC medication use today. Most bothersome symptom is sore throatand fatigue. Denies any high fevers productive cough chest pain hemoptysis pleuritic pain nausea vomiting abdominal pain or change in bowel or bladder habits. Past medical history prescription medication use allergies reviewed. .Patient presents with: Sore Throat: Fernández pain rated 6, SOB, fever, nasal congestion x4 days. PAST MEDICAL HISTORY Diagnosis Date Chronic daily headache Diabetes mellitus type I (HCC) NEGATIVE MEDICAL HISTORY 11/10/2015 Normal Color Vision POTS (postural orthostatic tachycardia syndrome) PAST SURGICAL HISTORY Procedure Laterality Date DELIVERY ONLY 06/14/2022 NONE PAST SURGICAL HISTORY OF Right right breast abscess removal ALLERGIES Amoxicillin, Bupivacaine, Chloroprocaine, Lidocaine, Vancomycin, and Vicodin [Hydrocodone-Acetaminophen] MEDICATIONS acetaminophen (TYLENOL) 325 mg cap Take by mouth. sulfamethoxazole-trimethoprim (BACTRIM DS,SEPTRA DS) 800-160 mg per tablet Take 1 tablet by mouth twice daily. (Patient not taking: Reported on 09/02/2022) oxyCODONE-acetaminophen (PERCOCET) 5-325 mg tablet Take 1 tablet by mouth every 6 hours as needed. (Patient not taking: Reported on 09/02/2022) ibuprofen (MOTRIN) 800 mg tablet Take 800 mg by mouth once daily. (Patient not taking: Reported on 09/03/2022) FAMILY HISTORY Problem Relation Age of Onset None Mother None Father Diabetes Paternal Grandfather Social History Tobacco Use Smoking status: Never Passive exposure: Yes Smokeless tobacco: Never Tobacco comments: parents smoke outside Vaping Use Vaping Use: current everyday user Substances: Nicotine Substance Use Topics Alcohol use: No Drug use: Never BP 100/60 Pulse 113 Temp 37.6 C (99.6 F) Resp 18 Wt 52.7 kg (116 lb 3.2 oz) LMP 08/18/2022 SpO2 100% BMI 17.16 kg/m Hr 86 Review of Systems Constitutional: Positive for chills, fever and malaise/fatigue. HENT: Positive for congestion and sore throat. Negative for ear discharge, ear pain and sinus pain. Eyes: Negative for blurred vision, pain, discharge and redness. Respiratory: Positive for cough. Negative for hemoptysis, sputum production, shortness of breath, wheezing and stridor. Cardiovascular: Negative for chest pain. Gastrointestinal: Negative for abdominal pain, diarrhea, nausea and vomiting. Musculoskeletal: Positive for myalgias. Skin: Negative for itching and rash. Neurological: Positive for headaches. Negative for dizziness. Objective Physical Exam Constitutional: General: She is not in acute distress. Appearance: She is not diaphoretic. HENT: Head: Normocephalic. Jaw: No trismus, tenderness, swelling or pain on movement. Nose: Congestion present. Mouth/Throat: Lips: [place]. Mouth: Mucous membranes are moist. Pharynx: Oropharynx is clear. Uvula midline. Posterior oropharyngeal erythema present. No pharyngeal swelling, oropharyngeal exudate or uvula swelling. Tonsils: No tonsillar abscesses. Eyes: Conjunctiva/sclera: Conjunctivae normal. Pupils: Pupils are equal, round, and reactive to light. Cardiovascular: Rate and Rhythm: Normal rate and regular rhythm. Heart sounds: Normal heart sounds. Pulmonary: Effort: Pulmonary effort is normal. No tachypnea, accessory muscle usage or respiratory distress. Breath sounds: Normal breath sounds. No stridor. No wheezing, rhonchi or rales. Abdominal: Palpations: Abdomen is soft. Tenderness: There is no abdominal tenderness. Musculoskeletal: Cervical back: Normal range of motion and neck supple. No rigidity or tenderness. Lymphadenopathy: Cervical: No cervical adenopathy. Skin: General: Skin is warm and dry. Neurological: Mental Status: She is alert and oriented to person, place, and time. ASSESSMENT/PLAN: 1. Acute cough - ICD9: 786.2, ICD10: R05.1 (primary diagnosis) - XR CHEST 2V FRONTAL/LAT - COVID WITH FLUA+B, ROUTINE 2. Pharyngitis, unspecified etiology - ICD9: 462, ICD10: J02.9 - STREP A MOLECULAR (POC) - COVID WITH FLUA+B, ROUTINE 3. Suspected COVID-19 virus infection - ICD9: V01.79, ICD10: Z20.822 - COVID WITH FLUA+B, ROUTINE Strep test negative. Chest x-ray negative. We will treat as viral etiology at this time. Patient was educated on supportive therapies. Patient [...] of care. This note was generated using Net[employer] software. It may contain errors in wording, punctuation, or spelling. Yoel Guzmán APRN.JANESSA documented in this encounterUc Medical Center11-01-2022 History of Present illness Narrative* Wagner Conte MD - 09/10/2022 9:52 AM EDT Ultrasound did show a potential fluid collection in the upper outer aspect of the breast. However the patient is allergic to local and I do not premedicate her for any procedures. So we are going to get her premedicated so that I can do an aspiration of this area. The be no charge for today's visit documented in this encounterUc Medical Center10-28-2022 Nurse Note* Julissa Winn RN - 09/06/2022 11:05 AM EDT The wound is cleansed, debrided of foreign material as much as possible, packed wound with guaze moistened with Normal saline, covered with a clean, dry sterile dressing. The patient is alerted to watch for any signs of infection (redness, pus, pain, increased swelling or fever) and call if such occurs. Patient education provided to patient and/or family member regarding wound packing: Once a day pack wound with gauze moistened with normal saline solution and white vinegar. Apply a clean, dry sterile dressing. Julissa Winn RN documented in this encounterUc Medical Center10-28-2022 History of Present illness Narrative* Wagner Conte MD - 09/06/2022 10:17 AM EDT Subjective: Patient is status post an I&D of a breast abscess in her right breast which required her to go to surgery and had a very rather extensive surgery. She noticed some fullness and I obtained an ultrasound of her breast which look like there was a possible fluid collection. She states that the breast was never red.. Recently she has noticed that her dressings have started to turn green. Objective:Last menstrual period 09/24/2021. Ultrasound did not show the fluid collection that was seen in the previous ultrasound the breast tissue itself is soft is nontender and really does not show signs of an underlying abscess infection just normal tissues that are granulating. Her dressing is linares and she clearly has a superficial Pseudomonas infection. Assessment:Breast abscess (primary encounter diagnosis) Plan: I want her to place a tablespoon of white vinegar into her normal saline dressing bottle. Andthen we will see her back in a week and we will see how this is improved getting rid of the superficial Pseudomonas infection. She really has no limitations from my standpoint. documented in this [facility]10-25-2022 Instructions* Patient Instructions* Julissa Winn RN - 09/03/2022 2:52 PM EDT Please return next Friday for appointment with Dr. Conte. 1 hour before appointment, please take 2 Tagamet(Cimetidine) & 2 Benadryl(diphenhydramine). Please contact our office with any questions. Thank you! documented in this [facility]10-24-2022 Nurse Note* Moy Lopez RN - 09/02/2022 4:09 PM EDT Rosy was scheduled for a right breast ultrasound at [facility] on 09/03/2022 at 11:00 am. She will come to the office when she is done to see Dr. Conte. Rosy is aware of these appointments. oMy Lopez RN documented in this [facility]10-24-2022 History of Present illness Narrative* Wagner Conte MD - 09/02/2022 2:51 PM EDT Subjective: Patient is status post an incision and drainage of a significantly large right breast abscess. She been doing well she has noticed that she has some firmness and fullness in the upper outer and upper inner aspect of her right breast. She is also noticing some discomfort along the rib going up to the axilla. She states that her dressing changes have been going well she is not having any difficulty with this and she is no longer having any problem with the daily dressing changes. Subjective:Blood pressure 104/72, pulse 114, temperature 36.6 C (97.8 F), resp. rate 12, height 175.3 cm (5' 9), weight 53 kg (116 lb 12.8 oz), last menstrual period 09/24/2021, SpO2 99 %. Right breast the incision looks like it is healing up great excellent granulation tissue is approximately 2-1/2 cm in length by 1-1/2 cm in depth no signs of yellow proteinaceous material nice and beefy red. Upper outer aspect and upper inner aspect of the breast does show some firmness this is thefirst time of seeing her in follow-up. Assessment: Right breast abscess Plan: I did obtain an ultrasound of this area and see if there is a fluid collection underneath there. If there is a fluid I am going to probably do a needle aspiration of it and will probably be getting a consultation with a breast surgeon at that time. documented in this encounterUc Medical Center10-18-2022 History of Present illness Narrative* Sonam Guadalupe PA-C - 08/27/2022 4:03 PM EDT FOLLOW UP VISIT - ABSCESS NAME: Rosy [facility] NO.: [id number] DATE OF SERVICE: 08/23/2022 : 2005 REFERRING PHYSICIAN: Connor Martini, Rosy is a patient I am following with Dr. Conte for a large right breast abscess. Dr. Conte performed an incision and drainage of the right breast abscess on 08/18/22. The patient notes no complaints of fever since the procedure. Pain has been mild. Pathology demonstrated acute and chronic infl ammation and abscess formation. Patient states has been doing packing changes at home. Denies any fever or chills. VITALS: Blood pressure 90/54, pulse 104, temperature 36.3 C (97.4 F), height 175.3 cm (5' 9), weight 53.5 kg (118 lb), last menstrual period 09/24/2021, SpO2 95 %. On examination, the incision site is viable with scant bloody drainage noted. The packing was removed to reveal clean wound cavity with good granulation tissue formation Assessment IMPRESSION: Status post incision and drainage of right breast abscess PLAN: -Continue wet to dry dressing changes -Patient has appt for wound center next week. If any new issues in the meantime, patient encouragedto contact our office Diagnoses: (N61.1) Breast abscess (primary encounter diagnosis) Sonam Guadalupe PA-C documented in this encounter[facility] Nurse Note* Christy Valero, BASEBALL GLOVE SHAPER - 08/23/2022 2:49 PM EDT REVIEW OF SYSTEMS: General: The patient notes fatigue, denies weight loss, denies weight gain, denies feeling hot, andnotes feelings of cold. Eyes: The patient denies glaucoma, denies eye injury/surgery, does wear glasses or contacts. Ear/Nose/Throat: The patient notes allergies, denies hayfever, notes ear infections, and denies bloody noses. Cardiovascular: The patient notes chest pain, denies heart disease, denies high blood pressure,denies cardiac stent, denies prior heart attack, denies irregular heart beat, denies high cholesterol, denies poor circulation, notes other cardiac issues, denies claudication, denies cold feet, denies peripheral arterial stent. Respiratory: The patient denies tuberculosis, denies pneumonia, denies frequent cough, denies pulmonary embolism, notes shortness of breath, and denies coughing up blood. Gastrointestinal: The patient denies difficulty swallowing, denies acid reflux, denies ulcers, denies vomiting, denies jaundice/hepatitis, denies gallbladder problems, denies black or tarry stools, denies hemorrhoids, denies bleeding from rectum, denies diverticulitis, denies constipation, denies diarrhea, denies loss of stool control, and denies hernias. Kidney/Bladder: The patient denies kidney stones, notes urine infections, and denies bloody urine. Skin: The patient denies a history of skin cancer, denies bleeding/changing moles, and denies a history of skin rash. Neurologic: The patient denies a history of epilepsy/convulsions, notes headaches, denies head/spinal injuries, and denies stroke/TIA. Psychiatric: The patient denies psychiatric medications, denies depression, and denies voices, denies substance abuse. Endocrine: The patient denies thyroid disorders, notes diabetes, and denies hormonal problems. Hematologic: The patient notes a history of bruising, denies bleeding, and denies anemia, denies blood clots. Infections: The patient denies a history of measles and mumps, denies rheumatic fever, and denies sexually transmitted diseases. Musculoskeletal: The patient denies back pain/injury, notes back problems, notes sciatica, notes knee/foot trouble, denies arthritis, or denies gout. When was patient's last Mammogram screening? none Last Colonoscopy: none Christy Valero LPN documented in this encounter[facility]10-12-2022 Miscellaneous Notes* Telephone Encounter - Jennifer White - 08/21/2022 11:17 AM EDT Maryam from [facility] ph. [phone] opt 4 called to see if the patient could be scheduled with [facility] [employer] [facility] [facility]. After speaking with the office it was determined that the patient could not be seen due toher not being one of their patients. I then spoke with Christy in Dr. Conte's office and explained that the patient requires dressing changes and repacking on Tuesdays and . She was referred to her SCHOOL ATHLETIC DIRECTOR at [facility] but her insurance will not cover the service in that department. Christy stated that she would reach out to Dr. Conte to see what he would prefer. I relayed the information back Dylan then spoke with Med Surg 3 marketing secretary to schedule her post op appt with Sonam Guadalupe. The marketing secretary explained that [facility] and the patient's SCHOOL ATHLETIC DIRECTOR were still working on getting the patient into a covered facility for those days. She will call [facility] if they are able to find someone prior to hearing from Dr. Conte. * Telephone Encounter - Kimberly Platt Ma - 08/21/2022 10:26 AM EDT Received a call from Astrid at [facility] regarding patient had I&D for mastitis done by Dr. Conte.Discharge instructions state daily dressing changes and to follow up with Sonam Guadalupe in the office. CLASSIFIED ADVERTISING CLERK requesting patient seen in office for dressing changes d/t depth of wound. CLASSIFIED ADVERTISING CLERK does not feel patient and support care could take care of it properly. Please call Astrid back at [phone]. documented in this encounterU[facility] Center10-09-2022 History of Present illness Narrative* Yoel Guzmán APRN.DRAPERY CUTTER MACHINE - 08/18/2022 12:15 PM EDT Subjective HPI Nontoxic-appearing female presents urgent care chief complaint breast pain. Duration of symptoms onand off for the last 2 months. Patient states has been treated for mastitis on 2 different antibiotics. Was allergic to amoxicillin. With changed to Keflex. This has not helped. Presents today due tofever vomiting and adenopathy axillary area. Patient states she has been having purulent drainage from her right nipple. Highest recorded fever last night at 103.5. Did take Tylenol this is helped with fever management. States she does have some nausea. Has vomited a few times today. Denies any chance of . Son is 2-month-old. She is not currently breast-feeding. Past medical history presc ription medication use allergies reviewed. .Patient presents with: Breast Problem: pain in right breast finished cipro yesterday PAST MEDICAL HISTORY Diagnosis Date Chronic daily headache NEGATIVE MEDICAL HISTORY 11/10/2015 Normal Color Vision PAST SURGICAL HISTORY Procedure Laterality Date NONE ALLERGIES Amoxicillin and Vicodin [Hydrocodone-Acetaminophen] MEDICATIONS segesterone ac-ethin estradiol (ANNOVERA) 0.15-0.013 mg/24 hour vaginal ring Use 1 Each vaginally as directed. Insert 1 ring vaginally. Following insertion, ring should remain in place for 21 continuous days (3 weeks), then removed for 7 days (1 week). (Patient not taking: Reported on 08/18/2022) FAMILY HISTORY Problem Relation Age of Onset None Mother None Father Diabetes Paternal Grandfather Social History Tobacco Use Smoking status: Never Passive exposure: Yes Smokeless tobacco: Never Tobacco comments: parents smoke outside Substance Use Topics Alcohol use: No BP 102/62 Pulse 98 Temp 36.2 C (97.2 F) Resp 16 Wt 51.3 kg (113 lb) LMP 09/24/2021 [id number]% Review of Systems Constitutional: Positive for chills, fever and malaise/fatigue. HENT: Negative for congestion, ear discharge, ear pain, sinus pain and sore throat. Eyes: Negative for blurred vision, pain, discharge and redness. Respiratory: Negative for cough, hemoptysis, sputum production, shortness of breath, wheezing and stridor. Cardiovascular: Negative for chest pain. Gastrointestinal: Positive for nausea and vomiting. Negative for abdominal pain and diarrhea. Musculoskeletal: Negative for myalgias. Skin: Negative for itching and rash. Neurological: Negative for dizziness and headaches. Objective Physical Exam Constitutional: General: She is not in acute distress. Appearance: She is not diaphoretic. HENT: Head: Normocephalic. Mouth/Throat: Mouth: Mucous membranes are moist. Pharynx: Oropharynx is clear. No oropharyngeal exudate or posterior oropharyngeal erythema. Eyes: Conjunctiva/sclera: Conjunctivae normal. Pupils: Pupils are equal, round, and reactive to light. Cardiovascular: Rate and Rhythm: Normal rate and regular rhythm. Heart sounds: Normal heart sounds. Pulmonary: Effort: Pulmonary effort is normal. No tachypnea, accessory muscle usage or respiratory distress. Breath sounds: Normal breath sounds. No stridor. No wheezing, rhonchi or rales. Chest: Comments: Swollen erythematous firm right breast. Axillary adenopathy noted. No drainage. Musculoskeletal: Cervical back: Normal range of motion. Skin: General: Skin is warm and dry. Neurological: Mental Status: She is alert and oriented to person, place, and time. ASSESSMENT/PLAN: 1. Breast infection in female - ICD9: 611.0, ICD10: N61.0 Patient diagnosed with breast infection. Concern for abscess formation. With patient's constitutional symptoms and physical exam I recommended patient be seen in emergency room. Will be seen in [facility]. Patient/significant other verbalized understand agrees with plan of care. Yoel Guzmán APRN.JANESSA documented in this encounterU[facility] Center11-09-2021 Hospital Discharge instructions Patient Education 09/18/2021 15:00:15 Abdominal Pain Abdominal Pain Abdominal pain is pain in the stomach or belly area. Everyone has this pain from time to time. In many cases it goes away on its own. But abdominal pain can sometimes be due to a serious problem, such as appendicitis. So it s important to know when to get help. Causes of abdominal pain There are many possible causes of abdominal pain. Common causes in adults include: Constipation, diarrhea, or gas Stomach acid flowing back up into the esophagus (acid reflux or heartburn) Severe acid reflux, called GERD (gastroesophageal reflux disease) A sore in the lining of the stomach or small intestine (peptic ulcer) Inflammation of the gallbladder, liver, or pancreas Gallstones or kidney stones Appendicitis Intestinal blockage An internal organ pushing through a muscle or other tissue (hernia) Urinary tract infections In women, menstrual cramps, fibroids, ovarian cysts, pelvic inflammatory disease, or endometriosis Inflammation or infection of the intestines, including Crohn's disease and ulcerative colitis Irritable bowel syndrome Diagnosing the cause of abdominal pain Your healthcare provider will give you a physical exam help find the cause of your pain. If needed,you will have tests. Belly pain has many possible causes. So it can be hard to find the reason for your pain. Giving details about your pain can help. Tell your provider where and when you feel the pain, and what makes it better or worse. Also let your provider know if you have other symptoms such as: Fever Tiredness Upset stomach (nausea) Vomiting Changes in bathroom habits Blood in the stool or black, tarry stool Weight loss that you can't explain (involuntary weight loss?) Also report any family history of stomach or intestinal problems, or cancers. Tell your provider about all your alcohol use and drug use. Tell your provider about all medicines you use, including herbs, vitamins, and supplements. Treating abdominal pain Some causes of pain need emergency medical treatment right away. These include appendicitis or a bowel blockage. Other problems can be treated with rest, fluids, or medicines. Your healthcare provider can give you specific instructions for treatment or self-care based on what is causing your pain. If you have vomiting or diarrhea, sip water or other clear fluids. When you are ready to eat solid foods again, start with small amounts of ilhd-yr-qpbeec, low- fat foods. These include apple sauce, toast, or crackers. When to get medical care Call 911 or go to the hospital right away if you: Can t pass stool and are vomiting Are vomiting blood or have bloody diarrhea or black, tarry diarrhea Have chest, neck, or shoulder pain Feel like you might pass out Have pain in your shoulder blades with nausea Have sudden, severe belly pain Have new, severe pain unlike any you have felt before Have a belly that is rigid, hard, and hurts to touch Call your healthcare provider if you have: Pain for more than 5 days Bloating for more than 2 days Diarrhea for more than 5 days A fever of 100.4 F (38 C) or higher, or as directed by your healthcare provider Pain that gets worse Weight loss for no reason Continued lack of appetite Blood in your stool How to prevent abdominal pain Here are some tips to help prevent abdominal pain: Eat smaller amounts of food at each meal. Don't eat greasy, fried, or other high-fat foods. Don't eat foods that give you gas. Exercise regularly. Drink plenty of fluids. To help prevent GERD symptoms: Quit smoking. Reduce alcohol and foods that increase stomach acid. Don't use aspirin or para-mql-dhhrezk pain and fever medicines, if possible. This includes nonsteroidal anti-inflammatory drugs (NSAIDs). Lose excess weight. Finish eating at least 2 hours before you go to bed or lie down. Raise the head of your bed. [id number] The [employer]. [address] [place] [address]. All rights reserved. This information is not intended as a substitute for professional medical care. Always follow yourhealthcare professional's instructions. Follow Up Care 09/18/2021 13:02:41 With:CONNOR MARTINI DO Address: [address] [place] [address] [place] [address]- When:2-4 days [facility] Discharge summary Author Dr. Galeano [facility] December 10, 2022 3:17am Note Date/Time December 10, 2022 1 :57am [facility] Medical Records Department [address] [place] [address] Emergency Department Summary 12/10/22 MR#: [id number] Acct: [id number] Name: ROSY DOMINIQUE Rep #:[id number] : 2005 17 From: Brandon Galeano MD PCP: Dr. Connor Martini, DO Status:REG ER Location: ED HPI History of Present Illness Chief Complaint: Chest Pain Informant: patient Narrative Narrative: Patient complains of pain on her left neck that radiates a little bit down over her shoulder and down her back. She is not telling me that it goes all the way to the lumbar area. She had for she states nothing makes it better or worse. But then she states that moving or pressing on it makes it worse. Its been there for about a week to week and a half. No swelling. No fevers or chills. Not short of breath. No recent travel surgery immobilization personal or familyhistory of DVT or PE. Multiple people in her family have pots disease. Patient has a history of seizures. She states she would have seizures many times a day but she is able to stop them by stopping what she is doing and making the seizure go away. She used to have frequent syncopal episodes but those were replaced by seizures a few years ago. She has had an MRI and other work-up that have not shown the cause of these. She has never been on meds for it. She has not had a seizure recently that she knows of. She also had MRSA mastitis. But she has not been having any fevers chills redness swelling recently. She has no cough. No fever. No sputum production no dyspnea. She is not on any medications including no control. [facility] Medical History Breech presentation History of pre-term labor Lump of breast Mastitis Positive GBS test POTS (postural orthostatic tachycardia syndrome) Premature rupture of membranes Supervision of normal first teen Home Medications naproxen 500 mg tablet 500 mg PO BID #14 tabs 12/10/22 [Rx Last Taken Unknown] Allergy/AdvReac Type Severity Reaction Status Date / Time amoxicillin Allergy Rash Verified 12/10/22 01:19 coconut Allergy Anaphylaxis Verified 12/10/22 01:19 dexmethylphenidate Allergy Itching Verified 12/10/22 01:20 hydrocodone Allergy Rash Verified 12/10/22 01:19 latex Allergy skin Verified 12/10/22 01:19 hayes, headaches onion Allergy Shortness Verified 12/10/22 01:19 of breath vancomycin Allergy Rash Verified 12/10/22 01:19 Family History Mother POTS (postural orthostatic tachycardia syndrome) Grandmother Breast cancer Thyroid disorder Skin cancer Surgical History Status post delivery Social History current occupation: [employer] pets and animals: Yes pets and animals: dog(s) sexually active: Yes Smoking Status: Current some day smoker tobacco type: cigarettes and e- cigarettes alcohol intake: never substance use type: does not use well-balanced diet: daily or most days caffeine: No (not while ) what type of physical activity do you participate in: walking seatbelt use: always ROS ROS ED Constitutional Constitutional ED: Denies chills, fever(s), subjective or sweats Eyes Eyes: Denies change in vision ENT ENT ED: Denies rhinorrhea or sore throat Cardiovascular Cardiovascular: Reports other Details: She has pain down the posterior left aspect of her spine. ; Denies chest pain Respiratory/Chest Respiratory/Chest: Denies cough or dyspnea Gastrointestinal Gastrointestinal: Reports other Details: No change in appetite. Eating does notbother her symptoms ; Denies abdominal pain, nausea or vomiting Genitourinary Genitourinary ED: Denies dysuria Musculoskeletal Musculoskeletal: Reports neck pain Integumentary Denies abscess, Abrasions or rash Neurologic Neurologic: Denies headache(s) Psychiatric Psychiatric: Reports anxiety Hematologic/Lymphatic Hematologic/Lymphatic: Denies easy bleeding or easy bruising Allergic/Immunologic Allergic/Immunologic ED: Denies urticaria EXAM Physical Exam Narrative Exam Narrative: Patient is sitting quietly in bed. No acute distress. Heart rates about 75. Respirations are 14. Saturations 100% on room air showing no hypoxia. HEENT: There is no erythema swelling or tenderness Eyes show no jaundice or inflammation Neck shows left paraspinal muscle tenderness and a little bit of sternocleidomastoid tenderness. But no asymmetry. No lymphadenopathy. No erythema no crepitance no swelling no mass no abscess no rash. Lungs are clear bilaterally. She does have left paraspinal tenderness down to about T8 or T10 region. No rash or swelling or asymmetry. Heart is regular without murmur gallop rub or tachycardia. Peripheral pulses are normal x4. Abdomen is soft completely nontender shows no CVA or suprapubic tenderness Extremities show no edema cords asymmetry tenderness or tenderness along the deep venous system. Pulses are normal. Patient is awake alert no confusion and no weakness or numbness. Const Vital Signs: 12/10/22 01:14 Temperature 97.9 F Temperature Source Oral Pulse Rate 82 Respiratory Rate 16 Blood Pressure 108/77 L Blood Pressure Mean 87 Pulse Ox 100 MDM MDM MDM Narrative Medical decision making narrative: My independent interpretation of the patient's two-view PA and lateral chest x- ray showed no sign of acute infiltrate, cardiomegaly, pneumothorax. Official reading by radiology is also no radiographic evidence of acute cardiopulmonary disease. By her history and exam she has musculoskeletal pain. It is sore when she movestwists or with palpation. There are no skin changes. No erythema. No swelling. No fevers or chills. She is eating and drinking normally. She is PERC negative for pulmonary embolus. My clinical suspicion is low. I donot think she needs CT scan or blood work looking for D-dimer. Likewise, I do not think this represents acute coronary syndrome and does not require blood work or troponin. Radiography Diagnostic Testing: Clinical Impression(s) from Imaging Studies Chest X-Ray 12/10/22 01:54 IMPRESSION: No radiographic evidence of acute cardiopulmonary disease. Electronically Signed: Karine Chou MD at 2:23 EST Reading Location ID and State: [facility] / [place] Tel , Service support , EKG Initial EKG: Comments: My independent interpretation of the EKG done for neck area painshows a normal sinus rhythm with overall rate of 61. There is some baseline variation but no sign of ST elevation or depression. No ectopy. VA interval, QRS duration and QTc are normal. Discharge Plan Triage Chief Complaint: Chest Pain ED Provider: Brandon Galeano Dx/Rx/DC Orders Clinical Impression: Neck pain on left side Instructions: ED Neck Pain Prescriptions: New naproxen 500 mg tablet 500 mg PO BID Qty: 14 0RF Primary Care Provider: Connor Martini Referrals: Connor Martini DO [Primary Care Provider] - 3-5 Days if not improving Disposition Disposition: Home, Self Care What to do if you have Problems For any increased pain, shortness of breath, bleeding, nausea or vomiting, chestpain, or any unexpected problems, contact your Primary Care Provider. Call [facility] ([phone]) or report to the closest Emergency Room. Call 911 if necessary. 12/10/22316 <Electronically signed by Brandon Galeano MD> Cosigner Signature (if applicable): CC: Dr. Connor Martini, DO ~ Signed [facility] Work Phone: Discharge summary Author Dr. Wiggins [facility] April 27, 2023 12:45am Note Date/Time April 27, 2023 12:4 5am [facility] Medical Records Department [address] [place] [address] Emergency Department Summary 04/27/23 MR#: [id number] Acct: [id number] Name: ROSY DOMINIQUE Rep #:[id number] : 2005 17 From: Amilcar Wiggins MD PCP: Dr. Florentin Toribio, DO Status:REG ER Location: ED HPI History of Present Illness Chief Complaint: Dental Narrative Narrative: 17-year-old female presents with left upper jaw pain and dental pain for at least a week. She also complains of pain in her left TMJ area.'s been happeningfor at least a week. Sometimes it hurts when she eats. She states she does notchew gum often. 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 She denies any fevers or chills. No nausea or vomiting. No other symptoms. [facility] Medical History Breech presentation History of pre-term labor Lump of breast Mastitis Positive GBS test POTS (postural orthostatic tachycardia syndrome) Premature rupture of membranes Supervision of normal first teen Home Medications levetiracetam 500 mg tablet mg PO 04/27/23 [History Last Taken Unknown] Allergy/AdvReac Type Severity Reaction Status Date / Time amoxicillin Allergy Rash Verified 03/10/23 22:01 coconut Allergy Anaphylaxis Verified 03/10/23 22:01 dexmethylphenidate Allergy Itching Verified 03/10/23 22:01 hydrocodone Allergy Rash Verified 03/10/23 22:01 latex Allergy skin Verified 03/10/23 22:01 hayes, headaches onion Allergy Shortness Verified 03/10/23 22:01 of breath vancomycin Allergy Rash Verified 03/10/23 22:01 Family History Mother POTS (postural orthostatic tachycardia syndrome) Grandmother Breast cancer Thyroid disorder Skin cancer Surgical History Status post delivery Social History current occupation: [employer] pets and animals: Yes pets and animals: dog(s) sexually active: Yes Smoking Status: Current some day smoker tobacco type: cigarettes and e- cigarettes alcohol intake: never substance use type: does not use well-balanced diet: daily or most days caffeine: No (not while ) what type of physical activity do you participate in: walking seatbelt use: always ROS ROS ED ROS Narrative Constitutional: No fever, no chills. HEENT: No sore throat. No neck pain. No loss of vision. No rhinorrhea. Left upper jaw pain, tooth pain, left TMJ pain. Cardiovascular: No chest pain. No palpitations. No pedal edema. Respiratory: No cough, no shortness of breath. Abdominal: No abdominal pain. No nausea. No vomiting. Genitourinary: No dysuria. No hematuria. Musculoskeletal: No myalgias. No arthralgias. Neurologic: No headaches. No dizziness. No lightheadedness. Skin: No rash. No change in color. Psychiatric: No depression. No anxiety. EXAM Physical Exam Narrative Exam Narrative: Afebrile. Vital signs noted. HEENT: Normocephalic. Atraumatic. PERRL, EOMI. Neck soft and supple. No pointtenderness or step off. Tenderness to percussion left upper teeth. No droolingor trismus. Airway patent. No noted Hernandez angina. Mild tenderness left TMJ area, no crepitance. Cardiovascular: Regular rate and rhythm. No murmurs, rubs, or gallops appreciated. Respiratory: No tachypnea. Lungs clear to auscultation bilaterally. Gastrointestinal: Abdomen soft, nontender, with normoactive bowel sounds. No rebound or guarding. Neurological: Awake. Alert. Nonfocal, nonlateralizing. Skin: No rash. Normal color. No pallor. Musculoskeletal: No pedal edema. Full range of motion extremities. Const Vital Signs: 04/27/23 00:26 Temperature 97.0 F L Temperature Source Temporal Pulse Rate 74 Respiratory Rate 18 Blood Pressure 118/72 Blood Pressure Mean 87 Pulse Ox 99 Oxygen Delivery Method Room Air MDM MDM MDM Narrative Medical decision making narrative: I do feel that she may have more pulpitis and dental carry pain. She will be started on Keflex which in review of her EMR shows that she has been prescribed in the past. She has been taking ibuprofen for pain. She was given naproxen here and she will follow-up with her dentist. I do not feel that she needs any imaging or laboratory work. I feel she be discharged safely home with follow-up. Return instructions reviewed. Disposition is discharged home in stable condition. Discharge Plan Triage Chief Complaint: Dental ED Provider: Amilcar Wiggins Dx/Rx/DC Orders Clinical Impression: Pain, dental, TMJ arthralgia Instructions: ED Dental Pain, ED TMJ Syndrome Prescriptions: No Action levetiracetam 500 mg tablet PO Primary Care Provider: Florentin Toribio Referrals: Florentin Toribio DO [Primary Care Provider] - As soon as possible Disposition Disposition: Home, Self Care What to do if you have Problems For any increased pain, shortness of breath, bleeding, nausea or vomiting, chestpain, or any unexpected problems, contact your Primary Care Provider. Call [facility] ([phone]) or report to the closest Emergency Room. Call 911 if necessary. 04/27/23 0045 <Electronically signed by Amilcar Wiggins MD> Cosigner Signature (if applicable): CC: Dr. Florentin Toribio DO ~ Signed [facility] Work Phone: Discharge summary Author Matthias Lemos [facility] June 09, 2023 3:07am Note Date/Time June 09, 2023 3:00 am [facility] Medical Records Department [address] [place] [address] [place] [address] Emergency Department Summary 06/09/23 MR#: [id number] Acct: [id number] Name: ROSY DOMINIQUE Rep #:[id number] 1 : 2005 17 From: Matthias Lemos DO PCP: Dr. Florentin Toribio DO Status:REG ER Location: ED HPI History of Present Illness Chief Complaint: Palpitations Informant: patient and spouse/S.O. Narrative Narrative: Patient is an 17-year-old female who presents ER complaining of palpitations with intermittent chest discomfort. She states that there is a family history of cardiac disease but she is unsure what the disease processes are. She states today she has noticed missed or skipped beats and occasional chest pain associated with them. She denies any recent travel surgery or history of DVT/PE. She states that there has been no illicit drug use or excessive stimulant use. She reports because she knows her family history of cardiac disease she was concerned based on the discomfort and palpitations and thereforecomes in for evaluation [facility] Medical History (Updated 06/09/23 @ 03:[address] Matthias Lemos DO) Breech presentation History of pre-term labor Lump of breast Mastitis Positive GBS test POTS (postural orthostatic tachycardia syndrome) Premature rupture of membranes Seizure Supervision of normal first teen Home Medications levetiracetam 500 mg tablet 500 mg PO Q12H SEIZURE 04/27/23 [History Last Taken Unknown] Allergy/AdvReac Type Severity Reaction Status Date / Time amoxicillin Allergy Rash Verified 06/09/23 00:50 coconut Allergy Anaphylaxis Verified 06/09/23 00:50 dexmethylphenidate Allergy Itching Verified 06/09/23 00:50 hydrocodone Allergy Rash Verified 06/09/23 00:50 latex Allergy skin Verified 06/09/23 00:50 hayes, headaches onion Allergy Shortness Verified 06/09/23 00:50 of breath vancomycin Allergy Rash Verified 06/09/23 00:50 Family History Mother POTS (postural orthostatic tachycardia syndrome) Grandmother Breast cancer Thyroid disorder Skin cancer Surgical History Status post delivery Social History current occupation: [employer] pets and animals: Yes pets and animals: dog(s) sexually active: Yes Smoking Status: Current some day smoker tobacco type: cigarettes and e- cigarettes alcohol intake: never substance use type: does not use well-balanced diet: daily or most days caffeine: No (not while ) what type of physical activity do you participate in: walking seatbelt use: always ROS ROS ED Constitutional Constitutional ED: Denies chills or fever(s) Eyes Eyes: Denies change in vision ENT ENT ED: Denies sore throat Cardiovascular Cardiovascular: Reports chest pain and palpitations Respiratory/Chest Respiratory/Chest: Denies cough or dyspnea Gastrointestinal Gastrointestinal: Denies abdominal pain, diarrhea, nausea or vomiting Genitourinary Genitourinary ED: Denies dysuria Musculoskeletal Musculoskeletal: Denies myalgias Integumentary Denies rash Neurologic Neurologic: Denies headache(s) Hematologic/Lymphatic Hematologic/Lymphatic: Denies easy bleeding or easy bruising EXAM Physical Exam Const Vital Signs: 06/09/23 00:43 06/09/23 00:48 Temperature 97.6 F L Temperature Source Oral Pulse Rate 79 Respiratory Rate 15 Respiratory Effort Non-Labored Blood Pressure 112/80 Blood Pressure Mean 90 Pulse Ox 100 Oxygen Delivery Method Room Air Positive well nourished and well developed General Appearance ED: well developed HEENT Reports moist mucous membranes Eyes PERRL and EOMs intact bilaterally General Eye ED: Negative for scleral icterus Neck supple and no JVD Chest Wall Chest Narrative: No bony deformity or crepitance noted but there is mild anterior chest wall painwith palpation Resp normal respiratory effort and clear to auscultation bilaterally Cardio regular rate and regular rhythm Rate: other Other Details: Radial and carotid pulses equal and symmetric GI normal to inspection, nondistended, normoactive bowel sounds, non-tender, non-distended and no masses Auscultation: normoactive bowel sounds Palpation: soft Extremity normal to inspection Extremity Narrative: No asymmetric edema no pitting edema negative Homans' sign bilaterally Neuro oriented x3 and CN's II-XII intact bilaterally Sensorium / Orientation: alert Psych mental status grossly normal Skin no rashes or lesions noted MDM MDM MDM Narrative Medical decision making narrative: Patient presented to the ER with stable vitals and a normal EKG. she is low riskfor cardiovascular disease and also has no history of physical exam findings concerning for DVT/PE. As the patient states there is a family history of cardiovascular events I did elect to perform basic laboratory studies and a chest x-ray. Labs revealed no signs of electrolyte disturbance anemia or signs of cardiac event with troponin of less than 3. Chest x-ray also revealed no acute lung pathology as a cause of her symptoms. Patient was kept on the inspector quality assurance and there was no PVC or PAC noted as well as no acute dysrhythmia such as A-fib a flutter or SVT. Therefore at this time as work-up does not show signs of acute coronary syndrome acute kidney injury electrolyte disturbance or lung pathology she is otherwise safe for discharge History & Record Review Discussion w/independent historian: Patient and Significant other Lab Data Attestation: I reviewed the patient's lab results. Labs: Laboratory Results - last 24 hr 06/09/23 01:50 WBC 5.7 RBC 4.57 Hgb 12.8 Hct 39.3 MCV 86.0 MCH 28.0 MCHC 32.6 RDW Std Deviation 41.0 RDW Coeff of Jessica 13.3 Plt Count 241 MPV 11.7 Immature Gran % (Auto) 0.200 Neut % (Auto) 40.7 Lymph % (Auto) 49.4 H Pike % (Auto) 7.9 H Eos % (Auto) 1.4 Baso % (Auto) 0.4 Absolute Neuts (auto) 2.3 Absolute Lymphs (auto) 2.81 Nucleated RBC % 0 Sodium 138 Potassium 3.6 Chloride 106 Carbon Dioxide 27.0 Anion Gap 5 BUN 15 Creatinine 0.86 Estim Creat Clear Calc 87.59 Est GFR (MDRD) Af Amer 110 Est GFR (MDRD) Non-Af 91 BUN/Creatinine Ratio 17.4 Glucose 74 Calcium 9.4 Magnesium 2.2 Troponin I High Sens < 3 L TSH 1.88 Radiography Diagnostic Testing: Clinical Impression(s) from Imaging Studies Chest X-Ray 06/09/23 01:41 IMPRESSION: 1. Slightly hyperexpanded lungs, correlate clinically for asthma symptoms. 2. Stable mild thoracic scoliosis. Electronically Signed: Florentin Aden MD at 2:37 EDT , Chest x-ray as interpreted by the emergency medicine physician reveals no acute infiltrate pneumothorax or pleural effusion Discharge Plan Triage Chief Complaint: Palpitations ED Provider: Matthias Lemos Dx/Rx/DC Orders Clinical Impression: Palpitations, Acute nonspecific chest pain with low risk of coronary artery disease Instructions: ED Palpitations Prescriptions: No Action levetiracetam 500 mg tablet 500 mg PO Q12H Primary Care Provider: Florentin Toribio Referrals: Florentin Toribio DO [Primary Care Provider] - Disposition Disposition: Home, Self Care What to do if you have Problems For any increased pain, shortness of breath, bleeding, nausea or vomiting, chestpain, or any unexpected problems, contact your Primary Care Provider. Call [facility] ([phone]) or report to the closest Emergency Room. Call 911 if necessary. 06/09/23 0307 <Electronically signed by Matthias Lemos DO> Cosigner Signature (if applicable): CC: Dr. Florentin Toribio DO ~ Signed [facility] Work Phone: Discharge summary Author Matthias Lemos [facility] August 31, 2023 6:34am Note Date/Time August 31, 2023 6 :17am [facility] Medical Records Department [address] [place] [address] Emergency Department Summary 08/31/23 MR#: [id number] Acct: [id number] Name: ROSY DOMINIQUE Rep #:[id number] 5 : 2005 18 From: Matthias Lemos DO PCP: Dr. Florentin Toribio DO Status:REG ER Location: ED HPI History of Present Illness Chief Complaint: Dental Informant: patient Narrative Narrative: Patient is a 18-year-old female who reports a past medical history of dental issues. She states that 3 to 4 months ago she was seen by an oral surgeon and informed that she had an infected left upper tooth which had caused erosion intoher sinus. Reportedly she was to have her teeth removed but secondary to potential reaction with anesthesia never went through with it. She states that she did feel better for quite some time but in the last few days has had return of her left upper dental pain. She denies any fevers chills difficulty breathing or swallowing but with concern for repeat infection she presents for evaluation. [facility] Medical History (Updated 08/31/23 @ 06:[address] Matthias Lemos, DO) Breech presentation History of pre-term labor Lump of breast Mastitis Positive GBS test POTS (postural orthostatic tachycardia syndrome) Premature rupture of membranes Seizure Supervision of normal first teen Home Medications docosahexaenoic acid 200 mg capsule ( DHA) mg PO 08/07/23 [History Last Taken Unknown] levetiracetam 500 mg tablet 800 mg PO Q12H SEIZURE 08/07/23 [History Last Taken Unknown] cefdinir 300 mg capsule 300 mg PO BID 10 days #20 caps 08/31/23 [Rx Last Taken Unknown] oxycodone-acetaminophen 5 mg-325 mg tablet (Percocet) 1 tab PO Q6H PRN pain 3 days #12 tabs 08/31/23 [Rx Last Taken Unknown] Allergy/AdvReac Type Severity Reaction Status Date / Time amoxicillin Allergy Rash Verified 08/31/23 05:51 coconut Allergy Anaphylaxis Verified 08/31/23 05:51 dexmethylphenidate Allergy Itching Verified 08/31/23 05:51 hydrocodone Allergy Rash Verified 08/31/23 05:51 latex Allergy skin Verified 08/31/23 05:51 hayes, headaches onion Allergy Shortness Verified 08/31/23 05:51 of breath vancomycin Allergy Rash Verified 08/31/23 05:51 Family History Mother POTS (postural orthostatic tachycardia syndrome) Grandmother Breast cancer Thyroid disorder Skin cancer Surgical History Status post delivery Social History (Updated 08/07/23 @ 13:54 by Sri Real) pets and animals: Yes pets and animals: dog(s) sexually active: Yes Smoking Status: Current some day smoker tobacco type: e-cigarettes Electronic Cigarette Use: with nicotine alcohol intake: never substance use type: does not use caffeine: No (not while ) what type of physical activity do you participate in: none seatbelt use: always ROS ROS ED Constitutional Constitutional ED: Denies chills or fever(s) ENT ENT ED: Reports other Details: Positive dental pain ; Denies sore throat Cardiovascular Cardiovascular: Denies chest pain Respiratory/Chest Respiratory/Chest: Denies cough or dyspnea Gastrointestinal Gastrointestinal: Denies abdominal pain, diarrhea, nausea or vomiting Genitourinary Genitourinary ED: Denies dysuria Musculoskeletal Musculoskeletal: Denies myalgias Integumentary Denies rash Neurologic Neurologic: Denies headache(s) Hematologic/Lymphatic Hematologic/Lymphatic: Denies easy bleeding or easy bruising EXAM Physical Exam Const Vital Signs: 08/31/23 05:48 Temperature 97.0 F L Temperature Source Temporal Pulse Rate 104 H Respiratory Rate 18 Blood Pressure 118/79 Blood Pressure Mean 92 Pulse Ox 100 Oxygen Delivery Method Room Air Positive well nourished and well developed General Appearance ED: well developed HEENT Reports moist mucous membranes HEENT Narrative: There are dental caries noted without dental abscess present. No oral lesions no tongue or lip swelling no airway edema or compromise No crepitance palpated over top the maxillary sinuses bilaterally. Eyes PERRL and EOMs intact bilaterally Neck supple Neck Narrative: No brawny edema in the submental space to suggest Hernandez's angina Positive anterior cervical lymphadenopathy noted No nuchal rigidity or meningeal signs present Resp normal respiratory effort and clear to auscultation bilaterally Cardio regular rate and regular rhythm Extremity normal to inspection Neuro oriented x3, CN's II-XII intact bilaterally and no sensory deficits noted Sensorium / Orientation: alert Motor Exam: strength 5/5 throughout Psych Psych Narrative: Patient has a nervous/anxious affect Mood & Affect: anxious Skin no rashes or lesions noted MDM MDM MDM Narrative Medical decision making narrative: Patient presented to the ER with stable vitals. Reported past medical history of dental infection without definitive therapy according to her report from the oral surgeon. At this time she is afebrile she has no difficulty with her secretions or change in voice there is no obvious dental abscess or crepitance noted no signs of ANUG or Ludewig's angina and therefore I feel there is no needfor imaging or laboratory studies. As patient's had a similar infective processin the past I do have concern that she is developing it once again. Therefore Iwill place her on antibiotics to cover for this. But at this time as she does not have nuchal rigidity to suggest meningitis there is no crepitance or deformity to suggest potential sinus erosion or ration and there is no physical exam findings concerning for peritonsillar abscess or epiglottitis she is safe for discharge and can follow-up on an outpatient basis. History & Record Review Discussion w/independent historian: Patient Discharge Plan Triage Chief Complaint: Dental ED Provider: Matthias Lemos Dx/Rx/DC Orders Clinical Impression: Pain, dental, Dental infection Instructions: ED Dental Pain, ED Dental Abscess Prescriptions: New cefdinir 300 mg capsule 300 mg PO BID 10 Days Qty: 20 0RF oxycodone-acetaminophen [Percocet] 5-325 mg tablet 1 tab PO Q6H PRN (Reason: pain) 3 Days Qty: 12 0RF No Action DHA 200 mg capsule PO levetiracetam 500 mg tablet 800 mg PO Q12H Primary Care Provider: Florentin Toribio Referrals: Florentin Toribio DO [Primary Care Provider] - Activity Restrictions/Additional Instructions: Please take the antibiotic as directed to cover for dental and sinus infection. Follow-up with your dentist for repeat evaluation and return to the ER should you have any further concerns. Disposition Disposition: Home, Self Care What to do if you have Problems For any increased pain, shortness of breath, bleeding, nausea or vomiting, chestpain, or any unexpected problems, contact your Primary Care Provider. Call [facility] ([phone]) or report to the closest Emergency Room. Call 911 if necessary. 08/31/23 0634 <Electronically signed by Matthias Lemos DO> Cosigner Signature (if applicable): CC: Dr. Florentin Toribio DO ~ Signed [facility] Work Phone: Evaluation + Plan note No data available for this section [facility] Evaluation note* Diagnosis Onset Date Resolution Status Lab test positive for detection of COVID-19 virus acute acute Supervision of normal first teen acute COVID-19 vaccine series completed resolved Threatened resolved Lab test positive for detection of COVID-19 virus acute acute Supervision of normal first teen acute COVID-19 vaccine series completed resolved Threatened resolved Lab test positive for detection of COVID-19 virus acute acute Supervision of normal first teen acute COVID-19 vaccine series completed resolved Threatened resolved Lab test positive for detection of COVID-19 virus acute acute Supervision of normal first teen acute [facility] Work Phone: evaluation note* Diagnosis Onset Date Resolution Status Lab test positive for detection of COVID-19 virus acute acute Supervision of normal first teen acute COVID-19 vaccine series completed resolved Threatened resolved Lab test positive for detection of COVID-19 virus acute acute Supervision of normal first teen acute COVID-19 vaccine series completed resolved Threatened resolved Lab test positive for detection of COVID-19 virus acute acute Supervision of normal first teen acute COVID-19 vaccine series completed resolved Threatened resolved Lab test positive for detection of COVID-19 virus acute acute Supervision of normal first teen acute Lab test positive for detection of COVID-19 virus acute acute Supervision of normal first teen acute Lab test positive for detection of COVID-19 virus acute acute Supervision of normal first teen acute [facility] Work Phone: evaluation note* Diagnosis Onset Date Resolution Status Lab test positive for detection of COVID-19 virus acute acute Supervision of normal first teen acute COVID-19 vaccine series completed resolved Threatened resolved Lab test positive for detection of COVID-19 virus acute acute Supervision of normal first teen acute Lab test positive for detection of COVID-19 virus acute acute Supervision of normal first teen acute Lab test positive for detection of COVID-19 virus acute acute Supervision of normal first teen acute Threatened labor res olved Lab test positive for detection of COVID-19 virus acute acute Supervision of normal first teen acute Lab test positive for detection of COVID-19 virus acute acute Supervision of normal first teen acute [facility] Work Phone: Evaluation note* Diagnosis Onset Date Resolution Status Lab test positive for detection of COVID-19 virus acute acute Supervision of normal first teen acute Lab test positive for detection of COVID-19 virus acute acute Supervision of normal first teen acute Threatened labor res olved Lab test positive for detection of COVID-19 virus acute acute Supervision of normal first teen acute Lab test positive for detection of COVID-19 virus acute acute Supervision of normal first teen acute [facility] Work Phone: Evaluation note* Diagnosis Onset Date Resolution Status Lab test positive for detection of COVID-19 virus acute acute Supervision of normal first teen acute Lab test positive for detection of COVID-19 virus acute acute Supervision of normal first teen acute Threatened labor res olved Lab test positive for detection of COVID-19 virus acute acute Supervision of normal first teen acute Lab test positive for detection of COVID-19 virus acute acute Supervision of normal first teen acute Lab test positive for detection of COVID-19 virus acute Positive GBS test acute acute Supervision of normal first teen acute Lab test positive for detection of COVID-19 virus acute Positive GBS test acute acute Supervision of normal first teen acute [facility] Work Phone: evaluation note* Diagnosis Onset Date Resolution Status Lab test positive for detection of COVID-19 virus acute acute Supervision of normal first teen acute Lab test positive for detection of COVID-19 virus acute acute Supervision of normal first teen acute Threatened labor res olved Lab test positive for detection of COVID-19 virus acute acute Supervision of normal first teen acute Lab test positive for detection of COVID-19 virus acute acute Supervision of normal first teen acute Lab test positive for detection of COVID-19 virus acute Positive GBS test acute acute Supervision of normal first teen acute Lab test positive for detection of COVID-19 virus acute Positive GBS test acute acute Supervision of normal first teen acute Breech presentation acute Lab test positive for detection of COVID-19 virus acute Positive GBS test acute acute Premature rupture of membranes acute Status post delivery acute Supervision of normal first teen acute Toxoplasmosis affecting acute [facility] Work Phone: evaluation note* Diagnosis Onset Date Resolution Status Lab test positive for detection of COVID-19 virus resolved Threatened labor res olved Lab test positive for detection of COVID-19 virus resolved Lab test positive for detection of COVID-19 virus resolved Lab test positive for detection of COVID-19 virus resolved Positive GBS test resolved Lab test positive for detection of COVID-19 virus resolved Positive GBS test resolved Toxoplasmosis affecting acute Lab test positive for detection of COVID-19 virus resolved Positive GBS test resolved [facility] Work Phone: evaluation note* Diagnosis Onset Date Resolution Status Lab test positive for detection of COVID-19 virus resolved Lab test positive for detection of COVID-19 virus resolved Threatened labor res olved Lab test positive for detection of COVID-19 virus resolved Positive GBS test resolved Lab test positive for detection of COVID-19 virus resolved Positive GBS test resolved Status post delivery acute Toxoplasmosis affecting acute Lab test positive for detection of COVID-19 virus resolved Positive GBS test resolved Postop check noneactive Contraception management acu te Status post delivery acute Breast abscess acute Breast discharge acute Breast pain, right acute Mastitis acute [facility] Work Phone: Evaluation note* Diagnosis Breast infection in female- Primary [facility] Diagnosis Onset Date Resolution Status Lab test positive for detection of COVID-19 virus resolved Threatened labor res olved Lab test positive for detection of COVID-19 virus resolved Positive GBS test resolved Lab test positive for detection of COVID-19 virus resolved Positive GBS test resolved Status post delivery acute Toxoplasmosis affecting acute Lab test positive for detection of COVID-19 virus resolved Positive GBS test resolved Postop check noneactive Contraception management acu te Status post delivery acute Breast abscess acute Breast discharge acute Breast pain, right acute Mastitis acute Pelvic pain acute [facility] Work Phone: Evaluation note* Diagnosis Breast abscess- Primary [facility]ammatory disease of [facility] Diagnosis Breast abscess- Primary Inflammatory disease of breast documented in this encounter [facility] note* Diagnosis Breast abscess- Primary Inflammatory disease of breast documented in this encounter [facility] note* Diagnosis Onset Date Resolution Status Lab test positive for detection of COVID-19 virus resolved Threatened labor res olved Lab test positive for detection of COVID-19 virus resolved Positive GBS test resolved Lab test positive for detection of COVID-19 virus resolved Positive GBS test resolved Status post delivery acute Toxoplasmosis affecting acute Lab test positive for detection of COVID-19 virus resolved Positive GBS test resolved Postop check noneactive Contraception management acu te Status post delivery acute Breast abscess acute Pelvic pain acute Breast discharge resolved Breast pain, right resolved Mastitis resolved Breast abscess acute [facility] Work Phone: Evaluation note* Diagnosis Acute cough- Primary Pharyngitis, unspecified etiology Suspected COVID-19 virus [facility] Diagnosis Breast abscess- Primary Inflammatory disease of breast documented in this encounter [facility] note* Diagnosis Onset Date Resolution Status Postop check noneactive Contraception management acu te Status post delivery acute Breast abscess acute Pelvic pain acute Breast discharge resolved Breast pain, right resolved Mastitis resolved Breast abscess acute [facility] Work Phone: Evaluation note* Diagnosis Onset Date Resolution Status Contraception management acu te Status post delivery acute Breast abscess acute Pelvic pain acute Breast discharge resolved Breast pain, right resolved Mastitis resolved Breast abscess acute [facility] Work Phone: Evaluation note* Diagnosis Onset Date Resolution Status Breast abscess acute Pelvic pain acute Breast discharge resolved Breast pain, right resolved Mastitis resolved Breast abscess acute [facility] Work Phone: Evaluation note* Diagnosis Dental infection- Primary Acute apical periodontitis of pulpal origin Throat pain documented in this encounter [facility] noteNo assessment [facility]* Diagnosis Sore throat- Primary Acute pharyngitis Viral URI Acute upper respiratory infections of unspecified site documented in this encounter [facility] note* Diagnosis Viral URI Acute upper respiratory infections of unspecified site documented in this encounter [facility] note* Diagnosis Mastodynia- Primary documented in this encounter [facility] note* Diagnosis Acute pain of left shoulder- Primary documented in this encounter [facility] note* Diagnosis Mastodynia- Primary Breast abscess Inflammatory disease of breast documented in this encounter [facility] note* Diagnosis Mastodynia- Primary documented in this encounter [facility] note* Diagnosis Onset Date Resolution Status Encounter for routine gynecological examination noneactive [facility] Work Phone: Evaluation note* Diagnosis Rash and nonspecific skin eruption- Primary Rash and other nonspecific skin eruption documented in this encounter [facility] note* Diagnosis Left lower quadrant pain- Primary Abdominal pain, left lower quadrant Left lower quadrant pain Abdominal pain, left lower quadrant Cystitis Unspecified cystitis Corpus luteum cyst of left ovary Tubal ectopic , unspecified laterality, unspecified whether intrauterine present Postop check Follow-up examination, following unspecified surgery documented in this encounter [facility] note* Diagnosis Sore throat- Primary Acute pharyngitis documented in this encounter [facility] note* Diagnosis Threatened - Primary documented in this encounter [facility] note* Diagnosis Abdominal pain during in first trimester- Primary documented in this encounter [facility] note* Diagnosis Encounter for supervision of high risk young multigravida, antepartum- Primary with uncertain viability, single or unspecified fetus History of prior with small for gestational age History of prior with IUGR History of delivery, currently with history of pre-term labor History of premature rupture of membranes History of Other postprocedural status History of toxoplasmosis Personal history of other infectious and parasitic disease Other pre-existing diabetes mellitus during , antepartum Other cardiomyopathy (HCC) History of laparotomy Personal history of surgery to other organs Brugada syndrome Other specified congenital anomaly of heart Seizure (HCC) Other convulsions Nontoxic single thyroid nodule Nontoxic uninodular goiter documented in this encounter [facility] note* Diagnosis Encounter for supervision of high risk young multigravida, antepartum Other pre-existing diabetes mellitus during , antepartum Nontoxic single thyroid nodule Nontoxic uninodular goiter documented in this encounter [facility] note* Diagnosis Abnormal glucose complicating - Primary Abnormal maternal glucose tolerance, complicating , childbirth, or the puerperium, unspecified as to episode of care documented in this encounter [facility] note* Diagnosis Wants antepartum ultrasound in first trimester- Primary Abdominal pain during in first trimester documented in this encounter [facility] note* Diagnosis 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 History of delivery, currently with history of pre-term labor Abdominal pain during in first trimester documented in this encounter [facility] note* Diagnosis Encounter for supervision of normal first in first trimester- Primary Supervision of normal first 11 weeks gestation of state, incidental Contamination of urine culture documented in this encounter [facility] note* Diagnosis Encounter for screening for malformation using ultrasound- Primary 12 weeks gestation of state, incidental documented in this encounter [facility] note* Diagnosis SOB (shortness of breath)- Primary Shortness of [facility] Diagnosis Nontoxic single thyroid nodule- Primary Nontoxic uninodular goiter Seizure (HCC) Other convulsions Hx of impaired glucose tolerance Personal history of other endocrine, metabolic, and immunity disorders History of delivery, currently with history of pre-term labor Encounter for supervision of high risk young multigravida, antepartum 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 Headache in , second trimester * Assessment & Plan Note - Scott Hoang MD - 05/26/2024 1:34 PM EDT Associated Problem(s): Headache in , second trimester - Patient reports chronic migraines, typically improve with Tylenol - Was seen in [facility] on 05/24 for headache, has since improved * Assessment & Plan Note - Scott Hoang MD - 05/26/2024 1:33 PM EDT Associated Problem(s): 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 - Patient seen in [facility] on 05/24 for palpitation, normal EKG at that time - Has appointment with Cardio-OB clinic in June * Assessment & Plan Note - Scott Hoang MD - 05/26/2024 1:32 PM EDT Associated Problem(s): Encounter for supervision of high risk young multigravida, antepartum - For anatomy ultrasound @ 18 weeks - Cervical length screening at 16 weeks, then q2 weeks afterwards - Growth scans q4 weeks - RTC in 4 weeks, can be scheduled with resident clinic per Dr Ramirez - Plan to see high risk again one time after Cardio-OB appointment in June, will determine resident clinic vs high risk at that time * Assessment & Plan Note - Scott Hoang MD - 05/26/2024 1:31 PM EDT Associated Problem(s): History of delivery, currently - Patient with prior delivery with PPROM and IUGR at 31 weeks - Plan for serial cervical lengths at 16 weeks, will schedule appointment today * Assessment & Plan Note - Scott Hoang MD - 05/26/2024 1:30 PM EDT Associated Problem(s): Hx of impaired glucose tolerance - Patient states she has T1DM, has never been on insulin - No documentation in chart of diagnosis/criteria - A1C 4.9 (04/08/24) - For normal glucose tolerance testing at 28 weeks * Assessment & Plan Note - Scott Hoang MD - 05/26/2024 1:28 PM EDT Associated Problem(s): Seizure (HCC) - Patient states she has a seizure history and her PCP had previously put her on Keppra, but never saw Neurology and no longer on medications - Last seizure in January, states it was related to her heart - Does not require additional workup, already has Cardio-OB appointment scheduled * Assessment & Plan Note - Scott Hoang MD - 05/26/2024 1:27 PM EDT Associated Problem(s): Nontoxic single thyroid nodule - Thyroid nodule noted in patient chart, but no documentation of imaging or how thyroid nodule was discovered - Patient has always had normal thyroid labs, most recently 04/08 - Asymptomatic - Does not require any additional workup [facility] History of delivery, currently - Primary with history of pre-term labor [facility] Diagnosis Poor growth affecting management of mother in second trimester, single or unspecified fetus- Primary History of delivery, currently with history of pre-term labor 18 weeks gestation of state, incidental [facility] Diagnosis Encounter for supervision of high risk young multigravida, antepartum- Primary growth restriction antepartum POTS (postural orthostatic tachycardia syndrome) Tachycardia, unspecified History of delivery, currently with history of pre-term labor 18 weeks gestation of state, incidental * Assessment & Plan Note - Scott Hoang MD - 06/24/2024 12:04 PM EDT Associated Problem(s): History of delivery, currently - Patient with prior delivery with PPROM and IUGR at 31 weeks - Patient states previous FGR was due to toxoplasmosis - Per chart review, patient tested negative for toxoplasmosis at that time - Per Dr Hassan, presence/absence of toxoplasmosis does not affect management - Continue serial cervical lengths - Normal cervical length on ultrasound today 18w5d * Assessment & Plan Note - Scott Hoang MD - 06/24/2024 12:02 PM EDT Associated Problem(s): Encounter for supervision of high risk young multigravida, antepartum - Continue cervical length screening q2-3 weeks - Repeat growth scan in 3 weeks per new diagnosis of FGR - RTC in 4 weeks, can be scheduled with resident clinic - Plan to see high risk again one time after Cardio-OB appointment, will determine resident clinic vs high risk at that time - Patient seeing Cardio-OB clinic for 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 - Has appointment scheduled in June but is planning to reschedule as date no longer works * Assessment & Plan Note - Scott Hoang MD - 06/24/2024 11:41 AM EDT Associated Problem(s): growth restriction antepartum - Patient diagnosed with FGR based on EFW 7%ile at 18w5d, normal dopplers - Patient thoroughly counseled by MFM - Patient with history of severe FGR and toxoplasmosis with subsequent PPROM at 31 weeks - Normal cervical length on ultrasound - Per chart review, no evidence of toxoplasmosis, patient tested negative in June 2022 at time ofdelivery - Repeat growth ultrasound ordered in 3 weeks documented in this encounter [facility] note* Diagnosis Nontoxic single thyroid nodule- Primary Nontoxic uninodular goiter Seizure (HCC) Other convulsions Hx of impaired glucose tolerance Personal history of other endocrine, metabolic, and immunity disorders History of delivery, currently with history of pre-term labor Encounter for supervision of high risk young multigravida, antepartum 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 Headache in , second trimester Encounter for supervision of high risk young multigravida, antepartum- Primary growth restriction antepartum POTS (postural orthostatic tachycardia syndrome) Tachycardia, unspecified History of delivery, currently with history of pre-term labor 18 weeks gestation of state, incidental 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 History of Other postprocedural status Palpitations RBBB (right bundle branch block) Right bundle branch block [facility]* Diagnosis Nontoxic single thyroid nodule- Primary Nontoxic uninodular goiter Seizure (HCC) Other convulsions Hx of impaired glucose tolerance Personal history of other endocrine, metabolic, and immunity disorders History of delivery, currently with history of pre-term labor Encounter for supervision of high risk young multigravida, antepartum 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 Headache in , second trimester Encounter for supervision of high risk young multigravida, antepartum- Primary growth restriction antepartum POTS (postural orthostatic tachycardia syndrome) Tachycardia, unspecified History of delivery, currently with history of pre-term labor 18 weeks gestation of state, incidental 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, complicating , childbirth, or the puerperium, unspecified as to episode of care 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 Prior EKG demonstrate a RBBB but without characteristic features of Brugada syndrome and no other personal or family history of sustained ventricular arrhythmias or sudden cardiac . - At this time, the EKG findings and history are not diagnostic for Brugada sydnrome. - Echo today is structurally and functionally normal - Known RBBB - Given VUS in genes associated with cardiac disease including Brugada syndrome (SCN5A) and cardiomyopathy (TNNT2A) and current limitations of genetic testing, we recommend continued follow up with yearly echo and medical genetics follow up in the event these variants become reclassified in the future - No * Assessment & Plan Note - Matthias Gonzalez MD - 07/01/2024 11:47 AM EDT Associated Problem(s): POTS (postural orthostatic tachycardia syndrome) Nonpharmacologically managed at this time. Frequent symptoms but stable from prior. - Discussed precautions for avoiding presyncope/syncope such as slow position changes, compression stockings - Emphasized importance of frequent meals and adequate nutritional intake and hydration, especiallyduring - Recommended electrolyte-containing fluids to improve volume status and avoid symptoms - Will obtain baseline NT-proBNP - No further cardiac interventions needed at this time. Can deliver at [facility] as desired with cardiology consultation as needed * Assessment & Plan Note - Matthias Gonzalez MD - 07/01/2024 11:47 AM EDT Associated Problem(s): Seizure (HCC) Unclear if any history of seizures or confounded by syncopal events. Previously diagnosed with epilepsy but then saw neurologist who told her this was not epilepsy. Prior Keppra use but this discontinued and has not had any seizure like events despite no AED use - No further management at this time * Assessment & Plan Note - Matthias Gonzalez MD - 07/01/2024 11:47 AM EDT Associated Problem(s): History of delivery, currently History of PPROM at 31 weeks in the setting of complicated by FGR, delivered by . - Continue serial cervical length assessments from 16-24 weeks - Will need further counseling on TOLAC versus repeat section for current - Plans delivery at [facility] Seen and discussed with Dr. 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 Headache in , second trimester Encounter for supervision of high risk young multigravida, antepartum- Primary growth restriction antepartum POTS (postural orthostatic tachycardia syndrome) Tachycardia, unspecified History of delivery, currently with history of pre-term labor 18 weeks gestation of state, incidental 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, complicating , childbirth, or the puerperium, unspecified as to episode of care 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 POTS (postural orthostatic tachycardia syndrome) Tachycardia, unspecified Seizure (HCC) Other convulsions History of delivery, currently with history of pre-term labor Great toe pain, left- Primary [facility]* Diagnosis Nontoxic single thyroid nodule- Primary Nontoxic uninodular goiter Seizure (HCC) Other convulsions Hx of impaired glucose tolerance Personal history of other endocrine, metabolic, and immunity disorders History of delivery, currently with history of pre-term labor Encounter for supervision of high risk young multigravida, antepartum 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 Headache in , second trimester Encounter for supervision of high risk young multigravida, antepartum- Primary growth restriction antepartum POTS (postural orthostatic tachycardia syndrome) Tachycardia, unspecified History of delivery, currently with history of pre-term labor 18 weeks gestation of state, incidental 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, complicating , childbirth, or the puerperium, unspecified as to episode of care 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 POTS (postural orthostatic tachycardia syndrome) Tachycardia, unspecified Seizure (HCC) Other convulsions History of delivery, currently with history of pre-term labor Hx of delivery, currently , second trimester- Primary Poor growth affecting management of mother in second trimester, single or unspecified fetus [facility] Diagnosis Nontoxic single thyroid nodule- Primary Nontoxic uninodular goiter Seizure (HCC) Other convulsions Hx of impaired glucose tolerance Personal history of other endocrine, metabolic, and immunity disorders History of delivery, currently with history of pre-term labor Encounter for supervision of high risk young multigravida, antepartum 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 Headache in , second trimester Encounter for supervision of high risk young multigravida, antepartum- Primary growth restriction antepartum POTS (postural orthostatic tachycardia syndrome) Tachycardia, unspecified History of delivery, currently with history of pre-term labor 18 weeks gestation of state, incidental 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, complicating , childbirth, or the puerperium, unspecified as to episode of care 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 POTS (postural orthostatic tachycardia syndrome) Tachycardia, unspecified Seizure (HCC) Other convulsions History of delivery, currently with history of pre-term labor Encounter for supervision of high risk young multigravida, antepartum- Primary Seizure (HCC) Other convulsions Abdominal cramping Abdominal pain, unspecified site History of delivery, currently with history of pre-term labor Hx of impaired glucose tolerance Personal history of other endocrine, metabolic, and immunity disorders growth restriction antepartum * Assessment & Plan Note - Priti Montiel DO - 07/21/2024 10:56 AM EDT Associated Problem(s): Encounter for supervision of high risk young multigravida, antepartum - RTC in 4 weeks, - RPR, CBC, 1 hr GCT at next SIVA * Assessment & Plan Note - Priti Montiel DO - 07/21/2024 10:56 AM EDT Associated Problem(s): Seizure (HCC) - Denies any symptoms * Assessment & Plan Note - Priti Montiel DO - 07/21/2024 10:56 AM EDT Associated Problem(s): Abdominal cramping - FHT normal - Vitals normal - Urine dip normal - Cramping likely secondary to round ligament pain of - Discussed return precautions, patient voiced understanding * Assessment & Plan Note - Priti Montiel DO - 07/21/2024 10:56 AM EDT Associated Problem(s): History of delivery, currently - Patient with prior delivery with PPROM and IUGR at 31 weeks - Growth ultrasound at 21w5d shows no evidence of FGR, normal fluid volume, and good cervical length without funneling. - Scheduled repeat cervical length ultrasound in 2 weeks * Assessment & Plan Note - Priti Montiel DO - 07/21/2024 10:56 AM EDT Associated Problem(s): Hx of impaired glucose tolerance - 1 hour Glucola at next SIVA * Assessment & Plan Note - Priti Montiel DO - 07/21/2024 10:56 AM EDT Associated Problem(s): growth restriction antepartum - Patient with history of severe FGR with subsequent PPROM at 31 weeks - Normal cervical length on ultrasound on 07/15 - Repeat growth ultrasound ordered and scheduled in 2 weeks [facility] Acute pain of left shoulder [facility] Diagnosis Nontoxic single thyroid nodule- Primary Nontoxic uninodular goiter Seizure (HCC) Other convulsions Hx of impaired glucose tolerance Personal history of other endocrine, metabolic, and immunity disorders History of delivery, currently with history of pre-term labor Encounter for supervision of high risk young multigravida, antepartum 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 Headache in , second trimester Encounter for supervision of high risk young multigravida, antepartum- Primary growth restriction antepartum POTS (postural orthostatic tachycardia syndrome) Tachycardia, unspecified History of delivery, currently with history of pre-term labor 18 weeks gestation of state, incidental 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, complicating , childbirth, or the puerperium, unspecified as to episode of care 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 POTS (postural orthostatic tachycardia syndrome) Tachycardia, unspecified Seizure (HCC) Other convulsions History of delivery, currently with history of pre-term labor Decreased movements in second trimester Decreased movements, affecting management of mother, antepartum Abdominal pain affecting Vaginal bleeding in , second trimester Encounter for supervision of high risk young multigravida, antepartum- Primary Seizure (HCC) Other convulsions Abdominal cramping Abdominal pain, unspecified site History of delivery, currently with history of pre-term labor Hx of impaired glucose tolerance Personal history of other endocrine, metabolic, and immunity disorders growth restriction antepartum History of delivery, currently - Primary with history of pre-term labor 23 weeks gestation of state, incidental [facility] Diagnosis Nontoxic single thyroid nodule- Primary Nontoxic uninodular goiter Seizure (HCC) Other convulsions Hx of impaired glucose tolerance Personal history of other endocrine, metabolic, and immunity disorders History of delivery, currently with history of pre-term labor Encounter for supervision of high risk young multigravida, antepartum 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 Headache in , second trimester Encounter for supervision of high risk young multigravida, antepartum- Primary growth restriction antepartum POTS (postural orthostatic tachycardia syndrome) Tachycardia, unspecified History of delivery, currently with history of pre-term labor 18 weeks gestation of state, incidental 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, complicating , childbirth, or the puerperium, unspecified as to episode of care 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 POTS (postural orthostatic tachycardia syndrome) Tachycardia, unspecified Seizure (HCC) Other convulsions History of delivery, currently with history of pre-term labor Decreased movements in second trimester Decreased movements, affecting management of mother, antepartum Abdominal pain affecting Vaginal bleeding in , second trimester Encounter for supervision of high risk young multigravida, antepartum- Primary Seizure (HCC) Other convulsions Abdominal cramping Abdominal pain, unspecified site History of delivery, currently with history of pre-term labor Hx of impaired glucose tolerance Personal history of other endocrine, metabolic, and immunity disorders growth restriction antepartum Encounter for supervision of high risk young multigravida, antepartum- Primary Encounter for suspected premature rupture of amniotic membranes, with rupture of membranes not found Suspected problem with amniotic cavity and membrane not found History of prior with IUGR History of delivery, currently with history of pre-term labor growth restriction antepartum Abdominal pain affecting Vaginal bleeding in , second trimester * Assessment & Plan Note - Anthony Cook APRN.[employer] - 08/17/2024 12:08 PM EDT Associated Problem(s): Encounter for supervision of high risk young multigravida, antepartum - OB precautions reviewed - 24-28w labs today RTC 2 weeks for SIVA or sooner as needed * Assessment & Plan Note - Anthony Cook APRN.CNP - 08/17/2024 12:07 PM EDT Associated Problem(s): growth restriction antepartum - Growth US 07/15/24 21w 5d AC 59%, EFW 33% - Growth US 28w ordered and scheduled * Assessment & Plan Note - Anthony Cook APRN.CNP - 08/17/2024 12:07 PM EDT Associated Problem(s): Encounter for suspected premature rupture of amniotic membranes, with rupture of membranes not found - Concern for ROM when she sat up in bed she felt a gush of fluid - No leaking of fluid since, not wearing a pad - Ferning negative and Nitrazine negative today - SSE cervix closed and thick no pooling - Precautions reviewed * Assessment & Plan Note - Anthony Cook APRN.JANESSA - 08/17/2024 12:05 PM EDT Associated Problem(s): Vaginal bleeding in , second trimester - reports intermittent episodes of spotting - On exam, no blood in vagina and no active bleeding from cervix - Precautions reviewed * Assessment & Plan Note - Anthony Cook APRN.CNP - 08/17/2024 12:03 PM EDT Associated Problem(s): Abdominal pain affecting - reports cramping on and off throughout the day, same as has been this and worse with movement - ABD non-tender on exam - SSE cervix closed and thick no pooling - UA dip negative - PTL precautions reviewed * Assessment & Plan Note - Anthony Cook APRN.CNP - 08/17/2024 12:00 PM EDT Associated Problem(s): History of delivery, currently - Completed CL screening 07/30- [facility] Diagnosis Nontoxic single thyroid nodule- Primary Nontoxic uninodular goiter Seizure (HCC) Other convulsions Hx of impaired glucose tolerance Personal history of other endocrine, metabolic, and immunity disorders History of delivery, currently with history of pre-term labor Encounter for supervision of high risk young multigravida, antepartum 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 Headache in , second trimester Encounter for supervision of high risk young multigravida, antepartum- Primary growth restriction antepartum POTS (postural orthostatic tachycardia syndrome) Tachycardia, unspecified History of delivery, currently with history of pre-term labor 18 weeks gestation of state, incidental 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, complicating , childbirth, or the puerperium, unspecified as to episode of care 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 POTS (postural orthostatic tachycardia syndrome) Tachycardia, unspecified Seizure (HCC) Other convulsions History of delivery, currently with history of pre-term labor Encounter for supervision of high risk young multigravida, antepartum- Primary Seizure (HCC) Other convulsions Abdominal cramping Abdominal pain, unspecified site History of delivery, currently with history of pre-term labor Hx of impaired glucose tolerance Personal history of other endocrine, metabolic, and immunity disorders growth restriction antepartum Encounter for supervision of high risk young multigravida, antepartum- Primary Encounter for suspected premature rupture of amniotic membranes, with rupture of membranes not found Suspected problem with amniotic cavity and membrane not found History of prior with IUGR History of delivery, currently with history of pre-term labor growth restriction antepartum Abdominal pain affecting Vaginal bleeding in , second trimester Pelvic pain affecting in third trimester, antepartum- Primary 27 weeks gestation of state, incidental Pelvic pain affecting Supervision of high risk in third trimester- Primary Unspecified high-risk Previous baby with growth restriction * Assessment & Plan Note - Anthony Cook APRN.CNP - 08/31/2024 10:52 AM EDT Associated Problem(s): Supervision of high risk in third trimester - OB precautions, FKC reviewed - passed 1 hour gct - Desires Tdap but not today, will also desire RSV vaccine at 32w - third trimester folder provided and reviewed - Plans to exclusively pump- breast pump rx completed - Safe sleep video watched and discussed - Maternal and Nutrition Maternal nutrition: Discussed maternal nutrition, hydration, PNV Denies food insecurity- discussed [employer] and [employer] food [employer] nutrition: benefits of BF, S2S, rooming in and feeding on cue exclusive BF, proper positioning, assessing a good latch, maintaining supply, signs your baby is getting enough milk concerns at home, support resources Provided handouts: [employer] maternal nutrition [employer] for the Best Feeding booklet RTC 2 weeks for SIVA * Assessment & Plan Note - Anthony Cook APRN.CNP - 08/31/2024 10:49 AM EDT Associated Problem(s): Previous baby with growth restriction - 28w Growth US tomorrow 09/01 [facility] Diagnosis Nontoxic single thyroid nodule- Primary Nontoxic uninodular goiter Seizure (HCC) Other convulsions Hx of impaired glucose tolerance Personal history of other endocrine, metabolic, and immunity disorders History of delivery, currently with history of pre-term labor Encounter for supervision of high risk young multigravida, antepartum 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 Headache in , second trimester Encounter for supervision of high risk young multigravida, antepartum- Primary growth restriction antepartum POTS (postural orthostatic tachycardia syndrome) Tachycardia, unspecified History of delivery, currently with history of pre-term labor 18 weeks gestation of state, incidental 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, complicating , childbirth, or the puerperium, unspecified as to episode of care 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 POTS (postural orthostatic tachycardia syndrome) Tachycardia, unspecified Seizure (HCC) Other convulsions History of delivery, currently with history of pre-term labor Encounter for supervision of high risk young multigravida, antepartum- Primary Seizure (HCC) Other convulsions Abdominal cramping Abdominal pain, unspecified site History of delivery, currently with history of pre-term labor Hx of impaired glucose tolerance Personal history of other endocrine, metabolic, and immunity disorders growth restriction antepartum Encounter for supervision of high risk young multigravida, antepartum- Primary Encounter for suspected premature rupture of amniotic membranes, with rupture of membranes not found Suspected problem with amniotic cavity and membrane not found History of prior with IUGR History of delivery, currently with history of pre-term labor growth restriction antepartum Abdominal pain affecting Vaginal bleeding in , second trimester Pelvic pain affecting in third trimester, antepartum- Primary 27 weeks gestation of state, incidental Pelvic pain affecting Supervision of high risk in third trimester- Primary Unspecified high-risk Previous baby with growth restriction POTS (postural orthostatic tachycardia syndrome)- Primary Tachycardia, unspecified History of delivery, currently with history of pre-term labor 28 weeks gestation of state, incidental [facility] Diagnosis Nontoxic single thyroid nodule- Primary Nontoxic uninodular goiter Seizure (HCC) Other convulsions Hx of impaired glucose tolerance Personal history of other endocrine, metabolic, and immunity disorders History of delivery, currently with history of pre-term labor Encounter for supervision of high risk young multigravida, antepartum 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 Headache in , second trimester Encounter for supervision of high risk young multigravida, antepartum- Primary growth restriction antepartum POTS (postural orthostatic tachycardia syndrome) Tachycardia, unspecified History of delivery, currently with history of pre-term labor 18 weeks gestation of state, incidental 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, complicating , childbirth, or the puerperium, unspecified as to episode of care 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 POTS (postural orthostatic tachycardia syndrome) Tachycardia, unspecified Seizure (HCC) Other convulsions History of delivery, currently with history of pre-term labor Encounter for supervision of high risk young multigravida, antepartum- Primary Seizure (HCC) Other convulsions Abdominal cramping Abdominal pain, unspecified site History of delivery, currently with history of pre-term labor Hx of impaired glucose tolerance Personal history of other endocrine, metabolic, and immunity disorders growth restriction antepartum Encounter for supervision of high risk young multigravida, antepartum- Primary Encounter for suspected premature rupture of amniotic membranes, with rupture of membranes not found Suspected problem with amniotic cavity and membrane not found History of prior with IUGR History of delivery, currently with history of pre-term labor growth restriction antepartum Abdominal pain affecting Vaginal bleeding in , second trimester Pelvic pain affecting in third trimester, antepartum- Primary 27 weeks gestation of state, incidental Pelvic pain affecting Supervision of high risk in third trimester- Primary Unspecified high-risk Previous baby with growth restriction Dentalgia- Primary Unspecified disorder of the teeth and supporting structures [facility] Diagnosis Nontoxic single thyroid nodule- Primary Nontoxic uninodular goiter Seizure (HCC) Other convulsions Hx of impaired glucose tolerance Personal history of other endocrine, metabolic, and immunity disorders History of delivery, currently with history of pre-term labor Encounter for supervision of high risk young multigravida, antepartum 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 Headache in , second trimester Encounter for supervision of high risk young multigravida, antepartum- Primary growth restriction antepartum POTS (postural orthostatic tachycardia syndrome) Tachycardia, unspecified History of delivery, currently with history of pre-term labor 18 weeks gestation of state, incidental 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, complicating , childbirth, or the puerperium, unspecified as to episode of care 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 POTS (postural orthostatic tachycardia syndrome) Tachycardia, unspecified Seizure (HCC) Other convulsions History of delivery, currently with history of pre-term labor Encounter for supervision of high risk young multigravida, antepartum- Primary Seizure (HCC) Other convulsions Abdominal cramping Abdominal pain, unspecified site History of delivery, currently with history of pre-term labor Hx of impaired glucose tolerance Personal history of other endocrine, metabolic, and immunity disorders growth restriction antepartum Encounter for supervision of high risk young multigravida, antepartum- Primary Encounter for suspected premature rupture of amniotic membranes, with rupture of membranes not found Suspected problem with amniotic cavity and membrane not found History of prior with IUGR History of delivery, currently with history of pre-term labor growth restriction antepartum Abdominal pain affecting Vaginal bleeding in , second trimester Pelvic pain affecting in third trimester, antepartum- Primary 27 weeks gestation of state, incidental Pelvic pain affecting Supervision of high risk in third trimester- Primary Unspecified high-risk Previous baby with growth restriction Abdominal pain affecting - Primary 30 weeks gestation of state, incidental Pelvic pain affecting in third trimester, antepartum 30 weeks gestation of state, incidental History of delivery, currently in third trimester History of delivery Seizure (HCC)- Primary Other convulsions Abdominal pain affecting Supervision of high risk in third trimester Unspecified high-risk * Assessment & Plan Note - Priti Montiel DO - 09/14/2024 10:15 AM EST Associated Problem(s): Supervision of high risk in third trimester - flat affect -depression screened, negative for any signs of depression or anxiety. Denies any thoughts of self harm or SI - TDAP today - last growth US reviewed, normal EFW - elects for repeat , consent signed - will schedule repeat c/s at next SIVA - 32w growth US scheduled in next two weeks * Assessment & Plan Note - Priti Montiel DO - 09/14/2024 10:09 AM EST Associated Problem(s): Abdominal pain affecting - seen in the OB ED last night - symptoms have mildly improved - declines Tylenol * Assessment & Plan Note - Priti Montiel DO - 09/14/2024 10:07 AM EST Associated Problem(s): Seizure (HCC) - denies any symptoms [facility] Diagnosis Nontoxic single thyroid nodule- Primary Nontoxic uninodular goiter Seizure (HCC) Other convulsions Hx of impaired glucose tolerance Personal history of other endocrine, metabolic, and immunity disorders History of delivery, currently with history of pre-term labor Encounter for supervision of high risk young multigravida, antepartum 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 Headache in , second trimester Encounter for supervision of high risk young multigravida, antepartum- Primary growth restriction antepartum POTS (postural orthostatic tachycardia syndrome) Tachycardia, unspecified History of delivery, currently with history of pre-term labor 18 weeks gestation of state, incidental 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, complicating , childbirth, or the puerperium, unspecified as to episode of care 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 POTS (postural orthostatic tachycardia syndrome) Tachycardia, unspecified Seizure (HCC) Other convulsions History of delivery, currently with history of pre-term labor Encounter for supervision of high risk young multigravida, antepartum- Primary Seizure (HCC) Other convulsions Abdominal cramping Abdominal pain, unspecified site History of delivery, currently with history of pre-term labor Hx of impaired glucose tolerance Personal history of other endocrine, metabolic, and immunity disorders growth restriction antepartum Encounter for supervision of high risk young multigravida, antepartum- Primary Encounter for suspected premature rupture of amniotic membranes, with rupture of membranes not found Suspected problem with amniotic cavity and membrane not found History of prior with IUGR History of delivery, currently with history of pre-term labor growth restriction antepartum Abdominal pain affecting Vaginal bleeding in , second trimester Pelvic pain affecting in third trimester, antepartum- Primary 27 weeks gestation of state, incidental Pelvic pain affecting Supervision of high risk in third trimester- Primary Unspecified high-risk Previous baby with growth restriction 30 weeks gestation of state, incidental Pelvic pain affecting in third trimester, antepartum 30 weeks gestation of state, incidental Vaginal bleeding in , third trimester Seizure (HCC)- Primary Other convulsions Abdominal pain affecting Supervision of high risk in third trimester Unspecified high-risk Seizure (HCC) Other convulsions History of delivery, currently in third trimester History of Other postprocedural status 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 Prematurity Other infants, unspecified (weight) Hx of antibiotic allergy Personal history of allergy to other antibiotic agent History of MRSA infection Personal history of Methicillin resistant Staphylococcus aureus Supervision of high risk in third trimester- Primary Unspecified high-risk Bacterial vaginosis in History of delivery contractions Threatened premature labor, antepartum * Assessment & Plan Note - Priti Montiel DO - 09/21/2024 9:39 AM EST Associated Problem(s): contractions - discussed benefits/risks/side effects of tocolytic Procardia XL 30 for symptomatic relief - sent to home pharmacy sent to home pharmacy - provided instructions to take once a day in the morning and to sit for 15 minutes after taking pill to prevent potential dizziness, encouraged PO hydration * Assessment & Plan Note - Priti Montiel DO - 09/21/2024 9:37 AM EST Associated Problem(s): History of delivery - history of delivery at 31 weeks - OB admission on 09/14 for short term observation: intact membranes, normal cervical length - SVE: /-4, unchanged from exam on 09/14 * Assessment & Plan Note - Priti Montiel DO - 09/21/2024 9:19 AM EST Associated Problem(s): Supervision of high risk in third trimester - Zofran refill for nausea - RSV closer to 36 week florentin - OB early labor precautions reviewed - RTC in 2 weeks for SIVA/growth US [facility] Diagnosis Nontoxic single thyroid nodule- Primary Nontoxic uninodular goiter Seizure (HCC) Other convulsions Hx of impaired glucose tolerance Personal history of other endocrine, metabolic, and immunity disorders History of delivery, currently with history of pre-term labor Encounter for supervision of high risk young multigravida, antepartum 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 Headache in , second trimester Encounter for supervision of high risk young multigravida, antepartum- Primary growth restriction antepartum POTS (postural orthostatic tachycardia syndrome) Tachycardia, unspecified History of delivery, currently with history of pre-term labor 18 weeks gestation of state, incidental 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, complicating , childbirth, or the puerperium, unspecified as to episode of care 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 POTS (postural orthostatic tachycardia syndrome) Tachycardia, unspecified Seizure (HCC) Other convulsions History of delivery, currently with history of pre-term labor Encounter for supervision of high risk young multigravida, antepartum- Primary Seizure (HCC) Other convulsions Abdominal cramping Abdominal pain, unspecified site History of delivery, currently with history of pre-term labor Hx of impaired glucose tolerance Personal history of other endocrine, metabolic, and immunity disorders growth restriction antepartum Encounter for supervision of high risk young multigravida, antepartum- Primary Encounter for suspected premature rupture of amniotic membranes, with rupture of membranes not found Suspected problem with amniotic cavity and membrane not found History of prior with IUGR History of delivery, currently with history of pre-term labor growth restriction antepartum Abdominal pain affecting Vaginal bleeding in , second trimester Pelvic pain affecting in third trimester, antepartum- Primary 27 weeks gestation of state, incidental Pelvic pain affecting Supervision of high risk in third trimester- Primary Unspecified high-risk Previous baby with growth restriction 30 weeks gestation of state, incidental Pelvic pain affecting in third trimester, antepartum 30 weeks gestation of state, incidental Vaginal bleeding in , third trimester Seizure (HCC)- Primary Other convulsions Abdominal pain affecting Supervision of high risk in third trimester Unspecified high-risk Seizure (HCC) Other convulsions History of delivery, currently in third trimester History of Other postprocedural status 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 Prematurity Other infants, unspecified (weight) Hx of antibiotic allergy Personal history of allergy to other antibiotic agent History of MRSA infection Personal history of Methicillin resistant Staphylococcus aureus Vaginal bleeding during Supervision of high risk in third trimester- Primary Unspecified high-risk Bacterial vaginosis in History of delivery contractions Threatened premature labor, antepartum Supervision of high risk in third trimester- Primary Unspecified high-risk Anemia, unspecified type related nausea, antepartum Mild hyperemesis gravidarum, antepartum Previous baby with growth restriction 32 weeks gestation of - Primary state, incidental Encounter for supervision of high risk young multigravida, antepartum History of prior with IUGR History of delivery, currently with history of pre-term labor [facility] Diagnosis Nontoxic single thyroid nodule- Primary Nontoxic uninodular goiter Seizure (HCC) Other convulsions Hx of impaired glucose tolerance Personal history of other endocrine, metabolic, and immunity disorders History of delivery, currently with history of pre-term labor Encounter for supervision of high risk young multigravida, antepartum 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 Headache in , second trimester Encounter for supervision of high risk young multigravida, antepartum- Primary growth restriction antepartum POTS (postural orthostatic tachycardia syndrome) Tachycardia, unspecified History of delivery, currently with history of pre-term labor 18 weeks gestation of state, incidental 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, complicating , childbirth, or the puerperium, unspecified as to episode of care 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 POTS (postural orthostatic tachycardia syndrome) Tachycardia, unspecified Seizure (HCC) Other convulsions History of delivery, currently with history of pre-term labor Encounter for supervision of high risk young multigravida, antepartum- Primary Seizure (HCC) Other convulsions Abdominal cramping Abdominal pain, unspecified site History of delivery, currently with history of pre-term labor Hx of impaired glucose tolerance Personal history of other endocrine, metabolic, and immunity disorders growth restriction antepartum Encounter for supervision of high risk young multigravida, antepartum- Primary Encounter for suspected premature rupture of amniotic membranes, with rupture of membranes not found Suspected problem with amniotic cavity and membrane not found History of prior with IUGR History of delivery, currently with history of pre-term labor growth restriction antepartum Abdominal pain affecting Vaginal bleeding in , second trimester Pelvic pain affecting in third trimester, antepartum- Primary 27 weeks gestation of state, incidental Pelvic pain affecting Supervision of high risk in third trimester- Primary Unspecified high-risk Previous baby with growth restriction 30 weeks gestation of state, incidental Pelvic pain affecting in third trimester, antepartum 30 weeks gestation of state, incidental Vaginal bleeding in , third trimester Seizure (HCC)- Primary Other convulsions Abdominal pain affecting Supervision of high risk in third trimester Unspecified high-risk Seizure (HCC) Other convulsions History of delivery, currently in third trimester History of Other postprocedural status 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 Prematurity Other infants, unspecified (weight) Hx of antibiotic allergy Personal history of allergy to other antibiotic agent History of MRSA infection Personal history of Methicillin resistant Staphylococcus aureus Vaginal bleeding during Supervision of high risk in third trimester- Primary Unspecified high-risk Bacterial vaginosis in History of delivery contractions Threatened premature labor, antepartum Supervision of high risk in third trimester- Primary Unspecified high-risk Anemia, unspecified type related nausea, antepartum Mild hyperemesis gravidarum, antepartum Previous baby with growth restriction * Assessment & Plan Note - Anthony Cook APRN.[employer] - 09/28/2024 12:19 PM EST Associated Problem(s): Supervision of high risk in third trimester - OB precautions, [facility] reviewed - Denies painful ctx- not using procardia - denies VB or lof - RSV vaccine today - zofran refill- did not mushroom picker last rx - PNP given - [facility]- [facility] - Received breast pump - Undecided on TOLAC vs rLTCS- r/b/a reviewed. States she will consider options RTC 2 weeks for SIVA * Assessment & Plan Note - Anthony Cook APRN.CNP - 09/28/2024 12:16 PM EST Associated Problem(s): Previous baby with growth restriction - Growth US today, report not yet finalized. 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 Headache in , second trimester Encounter for supervision of high risk young multigravida, antepartum- Primary growth restriction antepartum POTS (postural orthostatic tachycardia syndrome) Tachycardia, unspecified History of delivery, currently with history of pre-term labor 18 weeks gestation of state, incidental 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, complicating , childbirth, or the puerperium, unspecified as to episode of care 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 POTS (postural orthostatic tachycardia syndrome) Tachycardia, unspecified Seizure (HCC) Other convulsions History of delivery, currently with history of pre-term labor Encounter for supervision of high risk young multigravida, antepartum- Primary Seizure (HCC) Other convulsions Abdominal cramping Abdominal pain, unspecified site History of delivery, currently with history of pre-term labor Hx of impaired glucose tolerance Personal history of other endocrine, metabolic, and immunity disorders growth restriction antepartum Encounter for supervision of high risk young multigravida, antepartum- Primary Encounter for suspected premature rupture of amniotic membranes, with rupture of membranes not found Suspected problem with amniotic cavity and membrane not found History of prior with IUGR History of delivery, currently with history of pre-term labor growth restriction antepartum Abdominal pain affecting Vaginal bleeding in , second trimester Supervision of high risk in third trimester- Primary Unspecified high-risk Previous baby with growth restriction Seizure (HCC)- Primary Other convulsions Abdominal pain affecting Supervision of high risk in third trimester Unspecified high-risk Supervision of high risk in third trimester- Primary Unspecified high-risk Bacterial vaginosis in History of delivery contractions Threatened premature labor, antepartum premature rupture of membranes (PPROM) with unknown onset of labor- Primary 33 weeks gestation of state, incidental History of Other postprocedural status Seizure (HCC) Other convulsions History of delivery, currently in third trimester Previous baby with growth restriction History of MRSA infection Personal history of Methicillin resistant Staphylococcus aureus Prematurity Other infants, unspecified (weight) POTS (postural orthostatic tachycardia syndrome) Tachycardia, unspecified 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 Hx of antibiotic allergy Personal history of allergy to other antibiotic agent Supervision of high risk in third trimester- Primary Unspecified high-risk Anemia, unspecified type related nausea, antepartum Mild hyperemesis gravidarum, antepartum Previous baby with growth restriction Supervision of high risk in third trimester- Primary Unspecified high-risk premature rupture of membranes (PPROM) with unknown onset of labor [facility] Diagnosis Nontoxic single thyroid nodule- Primary Nontoxic uninodular goiter Seizure (HCC) Other convulsions Hx of impaired glucose tolerance Personal history of other endocrine, metabolic, and immunity disorders History of delivery, currently with history of pre-term labor Encounter for supervision of high risk young multigravida, antepartum 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 Headache in , second trimester Encounter for supervision of high risk young multigravida, antepartum- Primary growth restriction antepartum POTS (postural orthostatic tachycardia syndrome) Tachycardia, unspecified History of delivery, currently with history of pre-term labor 18 weeks gestation of state, incidental 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, complicating , childbirth, or the puerperium, unspecified as to episode of care 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 POTS (postural orthostatic tachycardia syndrome) Tachycardia, unspecified Seizure (HCC) Other convulsions History of delivery, currently with history of pre-term labor Encounter for supervision of high risk young multigravida, antepartum- Primary Seizure (HCC) Other convulsions Abdominal cramping Abdominal pain, unspecified site History of delivery, currently with history of pre-term labor Hx of impaired glucose tolerance Personal history of other endocrine, metabolic, and immunity disorders growth restriction antepartum Encounter for supervision of high risk young multigravida, antepartum- Primary Encounter for suspected premature rupture of amniotic membranes, with rupture of membranes not found Suspected problem with amniotic cavity and membrane not found History of prior with IUGR History of delivery, currently with history of pre-term labor growth restriction antepartum Abdominal pain affecting Vaginal bleeding in , second trimester Supervision of high risk in third trimester- Primary Unspecified high-risk Previous baby with growth restriction Seizure (HCC)- Primary Other convulsions Abdominal pain affecting Supervision of high risk in third trimester Unspecified high-risk Supervision of high risk in third trimester- Primary Unspecified high-risk Bacterial vaginosis in History of delivery contractions Threatened premature labor, antepartum state- Primary Routine follow-up Postoperative state Other postprocedural status 33 weeks gestation of state, incidental premature rupture of membranes (PPROM) with unknown onset of labor History of Other postprocedural status Seizure (HCC) Other convulsions Previous baby with growth restriction History of MRSA infection Personal history of Methicillin resistant Staphylococcus aureus Prematurity Other infants, unspecified (weight) POTS (postural orthostatic tachycardia syndrome) Tachycardia, unspecified 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 Supervision of high risk in third trimester- Primary Unspecified high-risk Anemia, unspecified type related nausea, antepartum Mild hyperemesis gravidarum, antepartum Previous baby with growth restriction state- Primary Routine follow-up Mastitis associated with * Assessment & Plan Note - Lynnette Burk DO - 10/21/2024 12:44 PM EST Associated Problem(s): state (Resolved 10/21/2024) - 2 weeks s/p repeat low transverse section at 33 weeks secondary to suspicious testing in the setting of PPROM - coping well, baby in NICU and she visits often - pumping without difficulty but concerned she may have mastitis - abdominal exam unremarkable with incision C/D/I - normotensive today - Contraception plan: desires POPs, rx sent to pharmacy - follow up in 4 weeks for 6 week visit * Assessment & Plan Note - Lynnette Burk DO - 10/21/2024 12:44 PM EST Associated Problem(s): Mastitis associated with - has been pumping; infant in NICU - left breast with area of erythema and warmth without induration - Bactrim BID x 7 days sent to pharmacy (allergy to PCN) - encouraged continued pumping [facility] Diagnosis Nontoxic single thyroid nodule- Primary Nontoxic uninodular goiter Seizure (HCC) Other convulsions Hx of impaired glucose tolerance Personal history of other endocrine, metabolic, and immunity disorders History of delivery, currently with history of pre-term labor Encounter for supervision of high risk young multigravida, antepartum 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 Headache in , second trimester Encounter for supervision of high risk young multigravida, antepartum- Primary growth restriction antepartum POTS (postural orthostatic tachycardia syndrome) Tachycardia, unspecified History of delivery, currently with history of pre-term labor 18 weeks gestation of state, incidental 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, complicating , childbirth, or the puerperium, unspecified as to episode of care 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 POTS (postural orthostatic tachycardia syndrome) Tachycardia, unspecified Seizure (HCC) Other convulsions History of delivery, currently with history of pre-term labor Encounter for supervision of high risk young multigravida, antepartum- Primary Seizure (HCC) Other convulsions Abdominal cramping Abdominal pain, unspecified site History of delivery, currently with history of pre-term labor Hx of impaired glucose tolerance Personal history of other endocrine, metabolic, and immunity disorders growth restriction antepartum Encounter for supervision of high risk young multigravida, antepartum- Primary Encounter for suspected premature rupture of amniotic membranes, with rupture of membranes not found Suspected problem with amniotic cavity and membrane not found History of prior with IUGR History of delivery, currently with history of pre-term labor growth restriction antepartum Abdominal pain affecting Vaginal bleeding in , second trimester Supervision of high risk in third trimester- Primary Unspecified high-risk Previous baby with growth restriction Seizure (HCC)- Primary Other convulsions Abdominal pain affecting Supervision of high risk in third trimester Unspecified high-risk Supervision of high risk in third trimester- Primary Unspecified high-risk Bacterial vaginosis in History of delivery contractions Threatened premature labor, antepartum state- Primary Routine follow-up Postoperative state Other postprocedural status 33 weeks gestation of state, incidental premature rupture of membranes (PPROM) with unknown onset of labor History of Other postprocedural status Seizure (HCC) Other convulsions Previous baby with growth restriction History of MRSA infection Personal history of Methicillin resistant Staphylococcus aureus Prematurity Other infants, unspecified (weight) POTS (postural orthostatic tachycardia syndrome) Tachycardia, unspecified 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 Supervision of high risk in third trimester- Primary Unspecified high-risk Anemia, unspecified type related nausea, antepartum Mild hyperemesis gravidarum, antepartum Previous baby with growth restriction state- Primary Routine follow-up Mastitis associated with Dizziness Dizziness and giddiness state Routine follow-up care and examination- Primary Routine follow-up [facility] Diagnosis Nontoxic single thyroid nodule- Primary Nontoxic uninodular goiter Seizure (HCC) Other convulsions Hx of impaired glucose tolerance Personal history of other endocrine, metabolic, and immunity disorders History of delivery, currently with history of pre-term labor Encounter for supervision of high risk young multigravida, antepartum 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 Headache in , second trimester Encounter for supervision of high risk young multigravida, antepartum- Primary growth restriction antepartum POTS (postural orthostatic tachycardia syndrome) Tachycardia, unspecified History of delivery, currently with history of pre-term labor 18 weeks gestation of state, incidental 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, complicating , childbirth, or the puerperium, unspecified as to episode of care 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 POTS (postural orthostatic tachycardia syndrome) Tachycardia, unspecified Seizure (HCC) Other convulsions History of delivery, currently with history of pre-term labor Encounter for supervision of high risk young multigravida, antepartum- Primary Seizure (HCC) Other convulsions Abdominal cramping Abdominal pain, unspecified site History of delivery, currently with history of pre-term labor Hx of impaired glucose tolerance Personal history of other endocrine, metabolic, and immunity disorders growth restriction antepartum Encounter for supervision of high risk young multigravida, antepartum- Primary Encounter for suspected premature rupture of amniotic membranes, with rupture of membranes not found Suspected problem with amniotic cavity and membrane not found History of prior with IUGR History of delivery, currently with history of pre-term labor growth restriction antepartum Abdominal pain affecting Vaginal bleeding in , second trimester Supervision of high risk in third trimester- Primary Unspecified high-risk Previous baby with growth restriction Seizure (HCC)- Primary Other convulsions Abdominal pain affecting Supervision of high risk in third trimester Unspecified high-risk Supervision of high risk in third trimester- Primary Unspecified high-risk Bacterial vaginosis in History of delivery contractions Threatened premature labor, antepartum state- Primary Routine follow-up Postoperative state Other postprocedural status 33 weeks gestation of state, incidental premature rupture of membranes (PPROM) with unknown onset of labor History of Other postprocedural status Seizure (HCC) Other convulsions Previous baby with growth restriction History of MRSA infection Personal history of Methicillin resistant Staphylococcus aureus Prematurity Other infants, unspecified (weight) POTS (postural orthostatic tachycardia syndrome) Tachycardia, unspecified 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 Supervision of high risk in third trimester- Primary Unspecified high-risk Anemia, unspecified type related nausea, antepartum Mild hyperemesis gravidarum, antepartum Previous baby with growth restriction state- Primary Routine follow-up Mastitis associated with Dizziness Dizziness and giddiness state Routine follow-up Mastodynia- Primary Bilateral fibrocystic breast changes Family history of breast cancer Family history of malignant neoplasm of breast [facility] Diagnosis Nontoxic single thyroid nodule- Primary Nontoxic uninodular goiter Seizure ([facility]) Other convulsions Hx of impaired glucose tolerance Personal history of other endocrine, metabolic, and immunity disorders History of delivery, currently ([facility]) with history of pre-term labor Encounter for supervision of high risk young multigravida, antepartum ([facility]) 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 Headache in , second trimester ([facility]) Encounter for supervision of high risk young multigravida, antepartum ([facility])- Primary growth restriction antepartum ([facility]) POTS (postural orthostatic tachycardia syndrome) Tachycardia, unspecified History of delivery, currently ([facility]) with history of pre-term labor 18 weeks gestation of ([facility]) state, incidental Maternal congenital cardiac anomaly complicating ([facility])- 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, complicating , childbirth, or the puerperium, unspecified as to episode of care 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 POTS (postural orthostatic tachycardia syndrome) Tachycardia, unspecified Seizure ([facility]) Other convulsions History of delivery, currently ([facility]) with history of pre-term labor Encounter for supervision of high risk young multigravida, antepartum ([facility])- Primary Seizure ([facility]) Other convulsions Abdominal cramping Abdominal pain, unspecified site History of delivery, currently ([facility]) with history of pre-term labor Hx of impaired glucose tolerance Personal history of other endocrine, metabolic, and immunity disorders growth restriction antepartum ([facility]) Encounter for supervision of high risk young multigravida, antepartum ([facility])- Primary Encounter for suspected premature rupture of amniotic membranes, with rupture of membranes not found Suspected problem with amniotic cavity and membrane not found History of prior with IUGR History of delivery, currently ([facility]) with history of pre-term labor growth restriction antepartum ([facility]) Abdominal pain affecting ([facility]) Vaginal bleeding in , second trimester ([facility]) Supervision of high risk in third trimester ([facility])- Primary Unspecified high-risk Previous baby with growth restriction Seizure ([facility])- Primary Other convulsions Abdominal pain affecting ([facility]) Supervision of high risk in third trimester ([facility]) Unspecified high-risk Supervision of high risk in third trimester ([facility])- Primary Unspecified high-risk Bacterial vaginosis in ([facility]) History of delivery contractions ([facility]) Threatened premature labor, antepartum state ([facility])- Primary Routine follow-up Postoperative state Other postprocedural status 33 weeks gestation of ([facility] state, incidental premature rupture of membranes (PPROM) with unknown onset of labor ([facility]) History of Other postprocedural status Seizure ([facility]) Other convulsions Previous baby with growth restriction History of MRSA infection Personal history of Methicillin resistant Staphylococcus aureus Prematurity ([facility]) Other infants, unspecified (weight) POTS (postural orthostatic tachycardia syndrome) Tachycardia, unspecified 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 Supervision of high risk in third trimester ([facility])- Primary Unspecified high-risk Anemia, unspecified type related nausea, antepartum ([facility]) Mild hyperemesis gravidarum, antepartum Previous baby with growth restriction state ([facility])- Primary Routine follow-up Mastitis associated with ([facility]) Dizziness Dizziness and giddiness state ([facility]) Routine follow-up Closed fracture of head of metatarsal bone of left foot, initial encounter- Primary Acute left ankle pain Nondisplaced fracture of proximal phalanx of left great toe, initial encounter for closed fracture Pain in left foot Pain in limb Acute left ankle pain [facility] Diagnosis Nontoxic single thyroid nodule- Primary Nontoxic uninodular goiter Seizure ([facility]) Other convulsions Hx of impaired glucose tolerance Personal history of other endocrine, metabolic, and immunity disorders History of delivery, currently ([facility]) with history of pre-term labor Encounter for supervision of high risk young multigravida, antepartum ([facility]) 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 Headache in , second trimester ([facility]) Encounter for supervision of high risk young multigravida, antepartum ([facility])- Primary growth restriction antepartum ([facility]) POTS (postural orthostatic tachycardia syndrome) Tachycardia, unspecified History of delivery, currently ([facility]) with history of pre-term labor 18 weeks gestation of ([facility]) state, incidental Maternal congenital cardiac anomaly complicating ([facility])- 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, complicating , childbirth, or the puerperium, unspecified as to episode of care 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 POTS (postural orthostatic tachycardia syndrome) Tachycardia, unspecified Seizure ([facility]) Other convulsions History of delivery, currently ([facility]) with history of pre-term labor Encounter for supervision of high risk young multigravida, antepartum ([facility])- Primary Seizure ([facility]) Other convulsions Abdominal cramping Abdominal pain, unspecified site History of delivery, currently ([facility]) with history of pre-term labor Hx of impaired glucose tolerance Personal history of other endocrine, metabolic, and immunity disorders growth restriction antepartum ([facility]) Encounter for supervision of high risk young multigravida, antepartum ([facility])- Primary Encounter for suspected premature rupture of amniotic membranes, with rupture of membranes not found Suspected problem with amniotic cavity and membrane not found History of prior with IUGR History of delivery, currently ([facility]) with history of pre-term labor growth restriction antepartum ([facility]) Abdominal pain affecting ([facility]) Vaginal bleeding in , second trimester ([facility]) Supervision of high risk in third trimester ([facility])- Primary Unspecified high-risk Previous baby with growth restriction Seizure ([facility])- Primary Other convulsions Abdominal pain affecting ([facility]) Supervision of high risk in third trimester ([facility]) Unspecified high-risk Supervision of high risk in third trimester ([facility])- Primary Unspecified high-risk Bacterial vaginosis in ([facility]) History of delivery contractions ([facility]) Threatened premature labor, antepartum state ([facility])- Primary Routine follow-up Postoperative state Other postprocedural status 33 weeks gestation of ([facility]) state, incidental premature rupture of membranes (PPROM) with unknown onset of labor ([facility]) History of Other postprocedural status Seizure ([facility]) Other convulsions Previous baby with growth restriction History of MRSA infection Personal history of Methicillin resistant Staphylococcus aureus Prematurity ([facility]) Other infants, unspecified (weight) POTS (postural orthostatic tachycardia syndrome) Tachycardia, unspecified 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 Supervision of high risk in third trimester ([facility])- Primary Unspecified high-risk Anemia, unspecified type related nausea, antepartum ([facility]) Mild hyperemesis gravidarum, antepartum Previous baby with growth restriction state ([facility])- Primary Routine follow-up Mastitis associated with ([facility]) Dizziness Dizziness and giddiness state ([facility]) Routine follow-up Acute [facility] Nontoxic single thyroid nodule- Primary Nontoxic uninodular goiter Seizure ([facility]) Other convulsions Hx of impaired glucose tolerance Personal history of other endocrine, metabolic, and immunity disorders History of delivery, currently ([facility]) with history of pre-term labor Encounter for supervision of high risk young multigravida, antepartum ([facility]) 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 Headache in , second trimester ([facility]) Encounter for supervision of high risk young multigravida, antepartum ([facility])- Primary growth restriction antepartum ([facility]) POTS (postural orthostatic tachycardia syndrome) Tachycardia, unspecified History of delivery, currently ([facility]) with history of pre-term labor 18 weeks gestation of ([facility]) state, incidental Maternal congenital cardiac anomaly complicating ([facility])- 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, complicating , childbirth, or the puerperium, unspecified as to episode of care 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 POTS (postural orthostatic tachycardia syndrome) Tachycardia, unspecified Seizure ([facility]) Other convulsions History of delivery, currently ([facility]) with history of pre-term labor Encounter for supervision of high risk young multigravida, antepartum ([facility])- Primary Seizure ([facility]) Other convulsions Abdominal cramping Abdominal pain, unspecified site History of delivery, currently ([facility]) with history of pre-term labor Hx of impaired glucose tolerance Personal history of other endocrine, metabolic, and immunity disorders growth restriction antepartum ([facility]) Encounter for supervision of high risk young multigravida, antepartum ([facility])- Primary Encounter for suspected premature rupture of amniotic membranes, with rupture of membranes not found Suspected problem with amniotic cavity and membrane not found History of prior with IUGR History of delivery, currently ([facility]) with history of pre-term labor growth restriction antepartum ([facility]) Abdominal pain affecting ([facility]) Vaginal bleeding in , second trimester ([facility] Supervision of high risk in third trimester ([facility])- Primary Unspecified high-risk Previous baby with growth restriction Seizure ([facility])- Primary Other convulsions Abdominal pain affecting ([facility]) Supervision of high risk in third trimester ([facility]) Unspecified high-risk Supervision of high risk in third trimester ([facility])- Primary Unspecified high-risk Bacterial vaginosis in ([facility]) History of delivery contractions ([facility]) Threatened premature labor, antepartum state ([facility])- Primary Routine follow-up Postoperative state Other postprocedural status 33 weeks gestation of ([facility]) state, incidental premature rupture of membranes (PPROM) with unknown onset of labor ([facility]) History of Other postprocedural status Seizure ([facility]) Other convulsions Previous baby with growth restriction History of MRSA infection Personal history of Methicillin resistant Staphylococcus aureus Prematurity ([facility]) Other infants, unspecified (weight) POTS (postural orthostatic tachycardia syndrome) Tachycardia, unspecified 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 Supervision of high risk in third trimester ([facility])- Primary Unspecified high-risk Anemia, unspecified type related nausea, antepartum ([facility]) Mild hyperemesis gravidarum, antepartum Previous baby with growth restriction state ([facility])- Primary Routine follow-up Mastitis associated with ([facility]) Dizziness Dizziness and giddiness state ([facility]) Routine follow-up Abnormal uterine bleeding (AUB)- Primary [facility] Diagnosis Nontoxic single thyroid nodule- Primary Nontoxic uninodular goiter Seizure ([facility]) Other convulsions Hx of impaired glucose tolerance Personal history of other endocrine, metabolic, and immunity disorders History of delivery, currently ([facility]) with history of pre-term labor Encounter for supervision of high risk young multigravida, antepartum ([facility]) 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 Headache in , second trimester ([facility]) Encounter for supervision of high risk young multigravida, antepartum ([facility])- Primary growth restriction antepartum ([facility]) POTS (postural orthostatic tachycardia syndrome) Tachycardia, unspecified History of delivery, currently ([facility]) with history of pre-term labor 18 weeks gestation of ([facility]) state, incidental Maternal congenital cardiac anomaly complicating ([facility])- 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, complicating , childbirth, or the puerperium, unspecified as to episode of care 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 POTS (postural orthostatic tachycardia syndrome) Tachycardia, unspecified Seizure ([facility]) Other convulsions History of delivery, currently ([facility]) with history of pre-term labor Encounter for supervision of high risk young multigravida, antepartum ([facility])- Primary Seizure ([facility]) Other convulsions Abdominal cramping Abdominal pain, unspecified site History of delivery, currently ([facility]) with history of pre-term labor Hx of impaired glucose tolerance Personal history of other endocrine, metabolic, and immunity disorders growth restriction antepartum ([facility]) Encounter for supervision of high risk young multigravida, antepartum ([facility])- Primary Encounter for suspected premature rupture of amniotic membranes, with rupture of membranes not found Suspected problem with amniotic cavity and membrane not found History of prior with IUGR History of delivery, currently ([facility]) with history of pre-term labor growth restriction antepartum ([facility]) Abdominal pain affecting ([facility]) Vaginal bleeding in , second trimester ([facility]) Supervision of high risk in third trimester ([facility])- Primary Unspecified high-risk Previous baby with growth restriction Seizure ([facility])- Primary Other convulsions Abdominal pain affecting ([facility]) Supervision of high risk in third trimester ([facility]) Unspecified high-risk Supervision of high risk in third trimester ([facility])- Primary Unspecified high-risk Bacterial vaginosis in ([facility]) History of delivery contractions ([facility]) Threatened premature labor, antepartum state ([facility])- Primary Routine follow-up Postoperative state Other postprocedural status 33 weeks gestation of ([facility]) state, incidental premature rupture of membranes (PPROM) with unknown onset of labor ([facility]) History of Other postprocedural status Seizure ([facility]) Other convulsions Previous baby with growth restriction History of MRSA infection Personal history of Methicillin resistant Staphylococcus aureus Prematurity ([facility]) Other infants, unspecified (weight) POTS (postural orthostatic tachycardia syndrome) Tachycardia, unspecified 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 Supervision of high risk in third trimester ([facility])- Primary Unspecified high-risk Anemia, unspecified type related nausea, antepartum ([facility]) Mild hyperemesis gravidarum, antepartum Previous baby with growth restriction state ([facility])- Primary Routine follow-up Mastitis associated with ([facility]) Dizziness Dizziness and giddiness state ([facility]) Routine follow-up Procedure not carried out- Primary Procedure not carried out for other reasons [facility] Diagnosis Nontoxic single thyroid nodule- Primary Nontoxic uninodular goiter Seizure ([facility]) Other convulsions Hx of impaired glucose tolerance Personal history of other endocrine, metabolic, and immunity disorders History of delivery, currently ([facility]) with history of pre-term labor Encounter for supervision of high risk young multigravida, antepartum ([facility]) 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 Headache in , second trimester ([facility]) Encounter for supervision of high risk young multigravida, antepartum ([facility])- Primary growth restriction antepartum ([facility]) POTS (postural orthostatic tachycardia syndrome) Tachycardia, unspecified History of delivery, currently ([facility]) with history of pre-term labor 18 weeks gestation of ([facility]) state, incidental Maternal congenital cardiac anomaly complicating ([facility])- 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, complicating , childbirth, or the puerperium, unspecified as to episode of care 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 POTS (postural orthostatic tachycardia syndrome) Tachycardia, unspecified Seizure ([facility]) Other convulsions History of delivery, currently ([facility]) with history of pre-term labor Encounter for supervision of high risk young multigravida, antepartum ([facility])- Primary Seizure ([facility]) Other convulsions Abdominal cramping Abdominal pain, unspecified site History of delivery, currently ([facility]) with history of pre-term labor Hx of impaired glucose tolerance Personal history of other endocrine, metabolic, and immunity disorders growth restriction antepartum ([facility]) Encounter for supervision of high risk young multigravida, antepartum ([facility])- Primary Encounter for suspected premature rupture of amniotic membranes, with rupture of membranes not found Suspected problem with amniotic cavity and membrane not found History of prior with IUGR History of delivery, currently ([facility]) with history of pre-term labor growth restriction antepartum ([facility]) Abdominal pain affecting ([facility]) Vaginal bleeding in , second trimester ([facility]) Supervision of high risk in third trimester ([facility])- Primary Unspecified high-risk Previous baby with growth restriction Seizure ([facility])- Primary Other convulsions Abdominal pain affecting ([facility]) Supervision of high risk in third trimester ([facility] Unspecified high-risk Supervision of high risk in third trimester ([facility])- Primary Unspecified high-risk Bacterial vaginosis in ([facility]) History of delivery contractions ([facility]) Threatened premature labor, antepartum state ([facility])- Primary Routine follow-up Postoperative state Other postprocedural status 33 weeks gestation of ([facility]) state, incidental premature rupture of membranes (PPROM) with unknown onset of labor ([facility]) History of Other postprocedural status Seizure ([facility]) Other convulsions Previous baby with growth restriction History of MRSA infection Personal history of Methicillin resistant Staphylococcus aureus Prematurity ([facility]) Other infants, unspecified (weight) POTS (postural orthostatic tachycardia syndrome) Tachycardia, unspecified 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 Supervision of high risk in third trimester ([facility])- Primary Unspecified high-risk Anemia, unspecified type related nausea, antepartum ([facility]) Mild hyperemesis gravidarum, antepartum Previous baby with growth restriction state ([facility])- Primary Routine follow-up Mastitis associated with ([facility]) Dizziness Dizziness and giddiness state ([facility]) Routine follow-up Acute left ankle pain- Primary Closed fracture of head of metatarsal bone of left foot, initial encounter Nondisplaced fracture of proximal phalanx of left great toe, initial encounter for closed fracture Pain in left foot Pain in limb [facility] Additional Instructions Zofran as needed for nausea. You can either swallow it or let dissolve on your tongue. Protonix daily in case you have irritation in your stomach. Return if you throw up blood or have black or bloody stools. Follow-up with your doctor if not improving. All your labs tonight were unremarkable.[facility] Work Phone: Hospital Discharge instructions Additional Instructions Blood type is AB+. Your hCG quantitative is 29. Urine culture pending take antibiotic as prescribed. Pelvic rest as discussed. Call your OB office for repeat quant level with bleeding in 2 to 3 days.[facility] Work Phone: Hospital Discharge instructions Additional Instructions Your work-up today does not show any acute blood loss requiring blood transfusion and you are not . 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 Return to the ER should you have any further [facility]: Hospital Discharge instructions Additional Instructions Your work-up today shows no obvious signs of infection pancreatitis gallbladder dysfunction or kidney infection or UTI. Follow-up with your family doctor for repeat evaluation and return to the ER should you have any further concernsWP[facility] Work Phone: Hospital Discharge instructions Additional Instructions Please take the antibiotic as directed to cover for dental and sinus infection. Follow-up with your dentist for repeat evaluation and return to the ER should you have any further concerns.[facility] Work Phone: Hospital Discharge instructions Additional Instructions Please wear your walking boot for stabilization of your fracture. Follow-up with podiatry to discuss further testing or treatment options. Return to the ER should you have any further concernsWP[facility] Work Phone: Hospital Discharge instructionsAdditional Instructions Motrin or Tylenol for any pain. Follow-up as needed. May return to work with normal work activities.[facility] Work Phone: Reason for referral (narrative)* Diagnostic Procedure Only (Routine) - Pending Review Specialty Diagnoses / Procedures Referred By Mariama mills Referred To Contact [facility] Diagnoses Breast abscess Procedures US BREAST LTD RT US BREAST UNI REAL TIME WITH IMAGE LIMITED Wagner Conte MD [address] [place] [address] [facility] [address] [place] [address] Referral ID Status Reason Start Date Expiration Date Visits Requested Visits Authorized [id number] Pending Review Auto-Generat ed Referral 2 10/02/2023 1 1 [facility] for referral (narrative)* Diagnostic Procedure Only (Routine) - Authorized Specialty Diagnoses / Procedures Referred By Contac t Referred To Contact [facility] Diagnoses Mastodynia Procedures US BREAST LTD RIGHT US BREAST UNI REAL TIME WITH IMAGE LIMITED Wagner Conte MD [address] [place] [address] [facility] [address] [place] [address] Referral ID Status Reason Start Date Expiration Date Visits Requested Visits Authorized [id number] Authorized Auto-Generat ed Referral 05/05/2023 06/03/2024 1 1 [facility] for referral (narrative)* Diagnostic Procedure Only (Urgent) - Denied Specialty Diagnoses / Procedures Referred By Contac t Referred To Contact X[facility] IMAGING Diagnoses Acute pain of left shoulder Procedures XR SHOULDER GENERAL 3V OR MORE AP/TRUE AP/OTHER LEFT RADEX SHOULDER COMPLETE MINIMUM 2 VIEWS Yoel Guzmán APRN.CNP [address] [place] [address] X[facility] Referral ID Status Reason Start Date Expiration Date V isits Requested Visits Authorized [id number] Denied Auto-Generate d Referral 05/06/2023 11/09/2023 1 0 [facility] for referral (narrative)* Diagnostic Procedure Only (Routine) - Authorized Specialty Diagnoses / Procedures Referred By Contac t Referred To Contact [facility] Diagnoses Mastodynia Breast abscess Procedures US BREAST LTD RIGHT US BREAST UNI REAL TIME WITH IMAGE LIMITED Wagner Conte MD [address] [place] [address] [facility] [address] [place] [address] Referral ID Status Reason Start Date Expiration Date Visits Requested Visits Authorized [id number] Authorized Auto-Generat ed Referral 07/23/2023 11/09/2023 1 1 [facility] for referral (narrative)* Diagnostic Procedure Only (Routine) - Authorized Specialty Diagnoses / Procedures Referred By Contac t Referred To Contact [facility] Diagnoses Wants antepartum ultrasound in first trimester Procedures OBSTETRIC ULTRASOUND WHI US PREG UTERUS AFTER 1ST TRIMEST GESTATION January, Jose A Chavez MD [address] [place] [address] [facility] [place] [address] [place] [address] Referral ID Status Reason Start Date Expiration Date Visits Requested Visits Authorized [id number] Authorized Auto-Generat ed Referral 04/23/2024 11/09/2024 20 20 [facility] for referral (narrative)* Diagnostic Procedure Only (Routine) - Pending Review Specialty Diagnoses / Procedures Referred By Contac t Referred To Contact [facility] Diagnoses Brugada syndrome History of delivery, currently Procedures OBSTETRIC ULTRASOUND WHI US PREG UTERUS AFTER 1ST TRIMEST GESTATION January, Jose A Chavez MD [address] [place] [address] [facility] [place] [address] [place] [address] Referral ID Status Reason Start Date Expiration Date Visits Requested Visits Authorized [id number] Pending Review Auto-Generat ed Referral 04/26/2024 04/26/2025 1 1 * Diagnostic Procedure Only (Routine) - Pending Review Specialty Diagnoses / Procedures Referred By Contac t Referred To Contact [facility] Diagnoses History of delivery, currently Procedures OBSTETRIC ULTRASOUND WHI US PREG UTERUS AFTER 1ST TRIMEST GESTATION January, Jose A Chavez MD [address] [place] [address] [id number] [place] [address] Referral ID Status Reason Start Date Expiration Date Visits Requested Visits Authorized [id number] Pending Review Auto-Generat ed Referral 04/26/2024 04/26/2025 4 1 [facility] for referral (narrative)* Diagnostic Procedure Only (Routine) - Pending Review Specialty Diagnoses / Procedures Referred By Contac t Referred To Contact [facility] Diagnoses History of delivery, currently Procedures OBSTETRIC ULTRASOUND WHI US PREG UTERUS AFTER 1ST [place] [address] [place] [address] [address] Referral ID Status Reason Start Date Expiration Date Visits Requested Visits Authorized [id number] Pending Review Auto-Generat ed Referral 05/11/2024 05/11/2025 1 1 T [facility] for referral (narrative)* Outpatient Procedure (Routine) - Pending Review Specialty Diagnoses / Procedures Referred By Contac t Referred To Contact [facility] Diagnoses SOB (shortness of breath) Procedures ECHO ECHO TTHRC R-T 2D W/WOM-MODE COMPL SPEC&COLR Alejandrina Mooney DO [address] [place] [address] [address] Referral ID Status Reason Start Date Expiration Date Visits Requested Visits Authorized [id number] Pending Review Auto-Generat ed Referral 05/19/2024 05/19/2025 1 1 T [facility] for referral (narrative)* Diagnostic Procedure Only (Routine) - New Request Specialty Diagnoses / Procedures Referred By Contac t Referred To Contact [facility] Diagnoses History of delivery, currently Procedures OBSTETRIC ULTRASOUND WHI US PREG UTERUS AFTER 1ST TRIMEST GESTATION January, Jose A Chavez MD [address] [place] [address] [facility] [address] [place] [address] Referral ID Status Reason Start Date Expiration Date Visits Requested Visits Authorized [id number] New Request Auto-Generat ed Referral 05/26/2024 05/26/2025 1 1 [facility] for referral (narrative)* Diagnostic Procedure Only (Routine) - New Request Specialty Diagnoses / Procedures Referred By Contac t Referred To Contact [facility] Diagnoses History of delivery, currently Procedures OBSTETRIC ULTRASOUND WHI US PREG UTERUS AFTER 1ST TRIMEST GESTATION January, Jose A Chavez MD [address] [place] [address] [facility] [address] [place] [address] Referral ID Status Reason Start Date Expiration Date Visits Requested Visits Authorized [id number] New Request Auto-Generat ed Referral 06/09/2024 06/09/2025 1 1 * Diagnostic Procedure Only (Routine) - New Request Specialty Diagnoses / Procedures Referred By Contac t Referred To Contact [facility] Diagnoses History of delivery, currently Procedures OBSTETRIC ULTRASOUND WHI US PREG UTERUS AFTER 1ST TRIMEST GESTATION January, Jose A Chavez MD [address] [place] [address] [facility] [place] [address] [place] [address] Referral ID Status Reason Start Date Expiration Date Visits Requested Visits Authorized [id number] New Request Auto-Generat ed Referral 06/09/2024 06/09/2025 4 1 [facility] for referral (narrative)* Diagnostic Procedure Only (Routine) - New Request Specialty Diagnoses / Procedures Referred By Contac t Referred To Contact [facility] Diagnoses Poor growth affecting management of mother in second trimester, single or unspecified fetus Procedures OBSTETRIC ULTRASOUND WHI US PREG UTERUS AFTER 1ST [place] [address] [place] [address] [address] Referral ID Status Reason Start Date Expiration Date Visits Requested Visits Authorized [id number] New Request Auto-Generat ed Referral 06/24/2024 06/24/2025 1 1 [facility] for referral (narrative)* Diagnostic Procedure Only (Routine) - New Request Specialty Diagnoses / Procedures Referred By Mariama t Referred To Contact [facility] Diagnoses Encounter for supervision of high risk young multigravida, antepartum Procedures OBSTETRIC ULTRASOUND WHI US PREG UTERUS AFTER 1ST TRIMEST GESTATION Jasper Spivey MD [address] [address] Referral ID Status Reason Start Date Expiration Date Visits Requested Visits Authorized [id number] New Request Auto-Generat ed Referral 07/21/2024 07/21/2025 1 1 [facility] for referral (narrative)* Diagnostic Procedure Only (Urgent) - Denied Specialty Diagnoses / Procedures Referred By Contac t Referred To Contact XR IMAGING Diagnoses Acute pain of left shoulder Procedures XR SHOULDER GENERAL 3V OR MORE AP/TRUE AP/OTHER LEFT RADEX SHOULDER COMPLETE MINIMUM 2 VIEWS Yoel Guzmán APRN.DRAPERY CUTTER MACHINE [address] [place] [address] [place] [address] Referral ID Status Reason Start Date Expiration Date V isits Requested Visits Authorized [id number] Denied Auto-Generate d Referral 05/06/2023 11/09/2023 1 0 [facility] for referral (narrative)* Diagnostic Procedure Only (Routine) - New Request Specialty Diagnoses / Procedures Referred By Contac t Referred To Contact [facility] Diagnoses Encounter for supervision of high risk young multigravida, antepartum History of prior with IUGR History of delivery, currently Procedures OBSTETRIC ULTRASOUND WHI US PREG UTERUS AFTER 1ST TRIMEST GESTATION Anthony Cook APRN.DRAPERY CUTTER MACHINE [address] [facility] [address] [place] [address] [facility] [place] [address] [place] [address] Referral ID Status Reason Start Date Expiration Date Visits Requested Visits Authorized [id number] New Request Auto-Generat ed Referral 08/17/2024 08/17/2025 1 1 [facility] for visit Narrative* Diagnostic Procedure Only (Routine) - Closed Specialty Diagnoses / Procedures Referred By Contac t Referred To Contact [facility] Diagnoses History of delivery, currently Procedures OBSTETRIC ULTRASOUND WHI US PREG UTERUS AFTER 1ST TRIMEST GESTATION January, Jose A Chavez MD 1 [place] [address] [address] Referral ID Status Reason Start Date Expiration Date V isits Requested Visits Authorized [id number] Closed Auto-Generate d Referral 06/09/2024 06/09/2025 1 1 [facility] for visit Narrative* Diagnostic Procedure Only (Urgent) - Denied Specialty Diagnoses / Procedures Referred By Contac t Referred To Contact XR IMAGING Diagnoses Acute pain of left shoulder Procedures XR SHOULDER GENERAL 3V OR MORE AP/TRUE AP/OTHER LEFT RADEX SHOULDER COMPLETE MINIMUM 2 VIEWS Yoel Guzmán APRN.DRAPERY CUTTER MACHINE [address] [place] [address] [place] [address] Referral ID Status Reason Start Date Expiration Date V isits Requested Visits Authorized [id number] Denied Auto-Generate d Referral 05/06/2023 11/09/2023 1 0 [facility] note* Isabelle, MAYA Ibanez: PERFORM Event Display: Patient Summary Documents Authored Date: [id number] [facility] Chief Complaint and Reason for Visit Chief Complaint Amb Documentation NOB LMP 10/01 EORDER FU US for viability f/u est ob 12w Reason for Visit Lab test positive fo r detection of COVID-19 virus Supervision of normal first teen COVID-19 vaccine series completed Threatened Lab test positive for detection of COVID-19 virus Supervision of normal first teen COVID-19 vaccine series completed Threatened Lab test positive for detection of COVID-19 virus Supervision of normal first teen COVID-19 vaccine series completed Threatened Lab test positive for detection of COVID-19 virus Supervision of normal first teen Chief Complaint Amb Documentation NOB LMP 10/01 EORDER FU US for viability f/u est ob 12w PRE HIRE DRUG/SPHERION est ob 18w est ob 22w SCIATIC RT SIDE. RX HERE ANATOMY Reason for Visit Lab test positive fo r detection of COVID-19 virus Supervision of normal first teen COVID-19 vaccine series completed Threatened Lab test positive for detection of COVID-19 virus Supervision of normal first teen COVID-19 vaccine series completed Threatened Lab test positive for detection of COVID-19 virus Supervision of normal first teen COVID-19 vaccine series completed Threatened Lab test positive for detection of COVID-19 virus Supervision of normal first teen Lab test positive for detection of COVID-19 virus Supervision of normal first teen Lab test positive for detection of COVID-19 virus Supervision of normal first teen Chief Complaint Amb Documentation NOB LMP 10/01 EORDER FU US for viability f/u est ob 12w PRE HIRE DRUG/SPHERION est ob 18w est ob 22w SCIATIC RT SIDE. RX HERE ANATOMY R/O LABOR Reason for Visit Lab test positive fo r detection of COVID-19 virus Supervision of normal first teen COVID-19 vaccine series completed Threatened Lab test positive for detection of COVID-19 virus Supervision of normal first teen COVID-19 vaccine series completed Threatened Lab test positive for detection of COVID-19 virus Supervision of normal first teen COVID-19 vaccine series completed Threatened Lab test positive for detection of COVID-19 virus Supervision of normal first teen Lab test positive for detection of COVID-19 virus Supervision of normal first teen Lab test positive for detection of COVID-19 virus Supervision of normal first teen Chief Complaint f/u est ob 12w PRE HIRE DRUG/SPHERION est ob 18w est ob 22w SCIATIC RT SIDE. RX HERE ANATOMY R/O LABOR OB f/u, seen in L&D last friday R/O LABOR est ob 23w R/O PRE TERM LABOR Reason for Visit Lab test positive fo r detection of COVID-19 virus Supervision of normal first teen COVID-19 vaccine series completed Threatened Lab test positive for detection of COVID-19 virus Supervision of normal first teen Lab test positive for detection of COVID-19 virus Supervision of normal first teen Lab test positive for detection of COVID-19 virus Supervision of normal first teen Threatened labor Lab test positive for detection of COVID-19 virus Supervision of normal first teen Lab test positive for detection of COVID-19 virus Supervision of normal first teen Chief Complaint PRE HIRE DRUG/SPHERI ON est ob 18w est ob 22w SCIATIC RT SIDE. RX HERE ANATOMY R/O LABOR OB f/u, seen in L&D last friday R/O LABOR est ob 23w R/O PRE TERM LABOR R/O PRE TERM LABOR est ob 27w F/U D/T LIMITED VIEWS OF SPINE Reason for Visit Lab test positive fo r detection of COVID-19 virus Supervision of normal first teen Lab test positive for detection of COVID-19 virus Supervision of normal first teen Threatened labor Lab test positive for detection of COVID-19 virus Supervision of normal first teen Lab test positive for detection of COVID-19 virus Supervision of normal first teen Chief Complaint est ob 18w est ob 22w SCIATIC RT SIDE. RX HERE ANATOMY R/O LABOR OB f/u, seen in L&D last friday R/O LABOR est ob 23w R/O PRE TERM LABOR R/O PRE TERM LABOR est ob 27w F/U D/T LIMITED VIEWS OF SPINE ONE HOUR DRAW AT 10:00AM est ob 30w OB pt, exposed to black mold, wants checked INT LABS AND RAD Reason for Visit Lab test positive fo r detection of COVID-19 virus Supervision of normal first teen Lab test positive for detection of COVID-19 virus Supervision of normal first teen Threatened labor Lab test positive for detection of COVID-19 virus Supervision of normal first teen Lab test positive for detection of COVID-19 virus Supervision of normal first teen Lab test positive for detection of COVID-19 virus Positive GBS test Supervision of normal first teen Lab test positive for detection of COVID-19 virus Positive GBS test Supervision of normal first teen Chief Complaint est ob 18w est ob 22w SCIATIC RT SIDE. RX HERE ANATOMY R/O LABOR OB f/u, seen in L&D last friday R/O LABOR est ob 23w R/O PRE TERM LABOR R/O PRE TERM LABOR est ob 27w F/U D/T LIMITED VIEWS OF SPINE ONE HOUR DRAW AT 10:00AM est ob 30w OB pt, exposed to black mold, wants checked INT LABS AND RAD PRIMARY PRIMARY Reason for Visit Lab test positive fo r detection of COVID-19 virus Supervision of normal first teen Lab test positive for detection of COVID-19 virus Supervision of normal first teen Threatened labor Lab test positive for detection of COVID-19 virus Supervision of normal first teen Lab test positive for detection of COVID-19 virus Supervision of normal first teen Lab test positive for detection of COVID-19 virus Positive GBS test Supervision of normal first teen Lab test positive for detection of COVID-19 virus Positive GBS test Supervision of normal first teen Breech presentation Lab test positive for detection of COVID-19 virus Positive GBS test Premature rupture of membranes Status post delivery Supervision of normal first teen Toxoplasmosis affecting Chief Complaint est ob 22w SCIATIC RT SIDE. RX HERE ANATOMY R/O LABOR OB f/u, seen in L&D last friday R/O LABOR est ob 23w R/O PRE TERM LABOR R/O PRE TERM LABOR est ob 27w F/U D/T LIMITED VIEWS OF SPINE ONE HOUR DRAW AT 10:00AM est ob 30w OB pt, exposed to black mold, wants checked INT LABS AND RAD PRIMARY PRIMARY FEVER Reason for Visit Lab test positive fo r detection of COVID-19 virus Threatened labor Lab test positive for detection of COVID-19 virus Lab test positive for detection of COVID-19 virus Lab test positive for detection of COVID-19 virus Positive GBS test Lab test positive for detection of COVID-19 virus Positive GBS test Toxoplasmosis affecting Lab test positive for detection of COVID-19 virus Positive GBS test Chief Complaint est ob 23w R/O PRE TERM LABOR R/O PRE TERM LABOR est ob 27w F/U D/T LIMITED VIEWS OF SPINE ONE HOUR DRAW AT 10:00AM est ob 30w OB pt, exposed to black mold, wants checked INT LABS AND RAD PRIMARY PRIMARY FEVER 2 wk incision check 6 wk PP, declined IUD GENERAL ILLNESS CHEST PAIN, OTHER MASTITIS, BREAST ABSCESS Reason for Visit Lab test positive fo r detection of COVID-19 virus Lab test positive for detection of COVID-19 virus Threatened labor Lab test positive for detection of COVID-19 virus Positive GBS test Lab test positive for detection of COVID-19 virus Positive GBS test Status post delivery Toxoplasmosis affecting Lab test positive for detection of COVID-19 virus Positive GBS test Postop check Contraception management Status post delivery Breast abscess Breast discharge Breast pain, right Mastitis Chief Complaint R/O PRE TERM LABOR R/O PRE TERM LABOR est ob 27w F/U D/T LIMITED VIEWS OF SPINE ONE HOUR DRAW AT 10:00AM est ob 30w OB pt, exposed to black mold, wants checked INT LABS AND RAD PRIMARY PRIMARY FEVER 2 wk incision check 6 wk PP, declined IUD GENERAL ILLNESS CHEST PAIN, OTHER MASTITIS, BREAST ABSCESS BREAST ABSCESS BREAST ABSCESS BREAST ABSCESS BREAST ABSCESS Reason for Visit Lab test positive fo r detection of COVID-19 virus Threatened labor Lab test positive for detection of COVID-19 virus Positive GBS test Lab test positive for detection of COVID-19 virus Positive GBS test Status post delivery Toxoplasmosis affecting Lab test positive for detection of COVID-19 virus Positive GBS test Postop check Contraception management Status post delivery Breast abscess Breast discharge Breast pain, right Mastitis Pelvic pain Chief Complaint est ob 27w F/U D/T LIMITED VIEWS OF SPINE ONE HOUR DRAW AT 10:00AM est ob 30w OB pt, exposed to black mold, wants checked INT LABS AND RAD PRIMARY PRIMARY FEVER 2 wk incision check 6 wk PP, declined IUD GENERAL ILLNESS CHEST PAIN, OTHER MASTITIS, BREAST ABSCESS BREAST ABSCESS BREAST ABSCESS BREAST ABSCESS BREAST ABSCESS BREAST ABSCESS BREAST ABSCESS Change packing wound ABSESS Reason for Visit Lab test positive fo r detection of COVID-19 virus Threatened labor Lab test positive for detection of COVID-19 virus Positive GBS test Lab test positive for detection of COVID-19 virus Positive GBS test Status post delivery Toxoplasmosis affecting Lab test positive for detection of COVID-19 virus Positive GBS test Postop check Contraception management Status post delivery Breast abscess Pelvic pain Breast discharge Breast pain, right Mastitis Breast abscess Chief Complaint FEVER 2 wk incision check 6 wk PP, declined IUD GENERAL ILLNESS CHEST PAIN, OTHER MASTITIS, BREAST ABSCESS BREAST ABSCESS BREAST ABSCESS BREAST ABSCESS BREAST ABSCESS BREAST ABSCESS BREAST ABSCESS Change packing wound ABSESS GI Bleed Reason for Visit Postop check Contraception management Status post delivery Breast abscess Pelvic pain Breast discharge Breast pain, right Mastitis Breast abscess Chief Complaint 6 wk PP, declined IU D GENERAL ILLNESS CHEST PAIN, OTHER MASTITIS, BREAST ABSCESS BREAST ABSCESS BREAST ABSCESS BREAST ABSCESS BREAST ABSCESS BREAST ABSCESS BREAST ABSCESS Change packing wound ABSESS GI Bleed vaginal bleeding Reason for Visit Contraception manage ment Status post delivery Breast abscess Pelvic pain Breast discharge Breast pain, right Mastitis Breast abscess Chief Complaint 6 wk PP, declined IU D GENERAL ILLNESS CHEST PAIN, OTHER MASTITIS, BREAST ABSCESS BREAST ABSCESS BREAST ABSCESS BREAST ABSCESS BREAST ABSCESS BREAST ABSCESS BREAST ABSCESS Change packing wound ABSESS GI Bleed vaginal bleeding SEIZURES Reason for Visit Contraception manage ment Status post delivery Breast abscess Pelvic pain Breast discharge Breast pain, right Mastitis Breast abscess Chief Complaint GENERAL ILLNESS CHEST PAIN, OTHER MASTITIS, BREAST ABSCESS BREAST ABSCESS BREAST ABSCESS BREAST ABSCESS BREAST ABSCESS BREAST ABSCESS BREAST ABSCESS Change packing wound ABSESS GI Bleed vaginal bleeding SEIZURES Reason for Visit Breast abscess Pelvic pain Breast discharge Breast pain, right Mastitis Breast abscess Chief Complaint MASTITIS, BREAST ABS CESS BREAST ABSCESS BREAST ABSCESS BREAST ABSCESS BREAST ABSCESS BREAST ABSCESS BREAST ABSCESS Change packing wound ABSESS GI Bleed vaginal bleeding SEIZURES CHEST PAIN Reason for Visit Breast abscess Pelvic pain Breast discharge Breast pain, right Mastitis Breast abscess Chief Complaint ABSESS GI Bleed vaginal bleeding SEIZURES CHEST PAIN HEAD INJURY Chief Complaint SEIZURES CHEST PAIN HEAD INJURY VAG BLEEDING Chief Complaint SEIZURES CHEST PAIN HEAD INJURY VAG BLEEDING ABD Chief Complaint CHEST PAIN HEAD INJURY VAG BLEEDING ABD Chief Complaint VAG BLEEDING ABD PAIN OVER THYROID dental Chief Complaint VAG BLEEDING ABD PAIN OVER THYROID dental PALPITATIONS Chief Complaint PALPITATIONS Annual (GLASS ENGRAVER) dental Reason for Visit Encounter for routin e gynecological examination Chief Complaint Annual (GLASS ENGRAVER) dental THYROID NODULE Reason for Visit Encounter for routin e gynecological examination Chief Complaint Annual (GLASS ENGRAVER) dental THYROID NODULE laceration Reason for Visit Encounter for routin e gynecological examination Chief Complaint Admit Date dental November 29, 2024 7 :33pm hurt foot February 10, 2025 11:2 8pm Chief Complaint Admit Date dental November 29, 2024 7 :33pm hurt foot February 10, 2025 11:2 8pm lower extremity injury March 24, 2025 11 :52pm Chief Complaint Admit Date hurt foot February 10, 2025 11:2 8pm lower extremity injury March 24, 2025 11 :52pm SHOCKED May 10, 2025 1:14p m Family History No Family History Records Found Relationship Condition Age at Onset Recorded Date/T priya mother Postural orthostatic tachycardia syndrome Unknown grandmother Malignant neoplasm of breast Unknown Disorder of thyroid Unknown Malignant neoplasm of skin Unknown Relationship Condition Age at Onset Recorded Date/T priya mother Postural orthostatic tachycardia syndrome Unknown Autistic disorder Unknown grandmother Malignant neoplasm of breast Unknown Disorder of thyroid Unknown Malignant neoplasm of skin Unknown sister Autistic disorder Unknown son Autistic disorder Unknown Advance Directives No Advanced Directives Records Found Advance Directive Response Recorded Date/ Time Living Will No August 18 12:34pm Power of Inventory Controller No August 18 12:34pm Advance Directive Response Recorded Date/ Time Living Will No August 18 3:36pm Power of Inventory Controller No August 18 3:36pm Advance Directive Response Recorded Date/ Time Living Will No October 14 12:21am Power of Inventory Controller No October 14, 2022 12:21am Advance Directive Response Recorded Date/ Time Living Will No November 03 022 10:35am Power of Inventory Controller No November 03, 2022 10:35am Advance Directive Response Recorded Date/ Time Living Will No December 10 1:17am Power of Inventory Controller No December 10, 2022 1:17am Advance Directive Response Recorded Date/ Time Living Will No December 26, 023 10:01pm Power of Inventory Controller No December 26, 2022 10:01pm Advance Directive Response Recorded Date/ Time Living Will No March 04, 2023 11:36pm Power of Inventory Controller No March 04 11:36pm Advance Directive Response Recorded Date/ Time Living Will Yes March 10, 2023 10 :02pm Power of Inventory Controller No March 10, 2023 10:02pm Advance Directive Response Recorded Date/ Time Living Will No April 27, 2023 12:30am Power of Inventory Controller No April 27 12:30am Advance Directive Response Recorded Date/ Time Living Will No June 09, 2023 12:47am Power of Inventory Controller No June 09 12:47am Advance Directive Response Recorded Date/ Time Living Will No August 31 5:51am Power of Inventory Controller No August 31, 2023 5:51am Advance Directive Response Recorded Date/ Time Living Will No August 31 4:51am Power of Inventory Controller No August 31, 2023 4:51am Advance Directive Response Recorded Date/ Time Living Will No November 21 8:35pm Power of Inventory Controller No November 21, 2023 8:35pm Latest Code Status on File Code Status Date Activated Date Inactivated Comments Full Code 03/17/2024 10:51 AM 03/17/2024 7:00 PM Advance Directive Response Recorded Date/ Time Living Will No February 10, 2025 11:33pm Do you have a Healthcare Power of Inventory Controller? No February 10, 2025 11:33pm Living Will No November 29 8:47pm Do you have a Healthcare Power of Inventory Controller? No November 29, 2024 8:47pm Advance Directive Response Recorded Date/ Time Living Will No February 10, 2025 11:33pm Do you have a Healthcare Power of Inventory Controller? No February 10, 2025 11:33pm Living Will No November 29 8:47pm Do you have a Healthcare Power of Inventory Controller? No November 29, 2024 8:47pm Do you have a Healthcare Power of Inventory Controller? No March 24, 2025 11:57pm Advance Directive Response Recorded Date/ Time Living Will No February 10, 2025 11:33pm Do you have a Healthcare Power of Inventory Controller? No February 10, 2025 11:33pm Do you have a Healthcare Power of Inventory Controller? No May 10, 2025 2:25pm Do you have a Healthcare Power of Inventory Controller? No March 24, 2025 11:57pm Health Concerns Infection Onset Date Last Indicated Resolved Time COVID-19 Rule-Out 09/10/2022 09/10/2022 Infection Onset Date Last Indicated Resolved Time COVID-19 Confirmed 01/19/2023 01/19/2023 Summary Purpose Reason for Referral Specialty Diagnoses / Procedures Referred By Mariama t Referred To Contact Diagnoses Brugada syndrome Procedures CONSULT TO MEDICAL GENETICS - CARDIOVASCULAR OFFICE/OUTPATIENT [facility] 60 MINUTES MEDICAL GENETICS COUNSELING EACH 30 MINUTES Alejandrina Wall DO [address] [place] [address] [address] Referral ID Status Reason Start Date Expiration Date Visits Requested Visits Authorized [id number] Pending Review PCP Requested Referral Auto-Generate d Referral 04/01/2025 06/30/2025 1 1 Specialty Diagnoses / Procedures Referred By Mariama t Referred To Contact [facility] Diagnoses Brugada syndrome History of Procedures CARDIOVASCULAR MEDICINE OP FOLLOW UP APPT ORDER Alejandrina Wall DO [address] [place] [address] [facility] [address] [address] Referral ID Status Reason Start Date Expiration Date Visits Requested Visits Authorized [id number] Ref Not Required PCP Requested Referral 06/30/2024 06/30/2025 1 1 Specialty Diagnoses / Procedures Referred By Mariama mills Referred To Contact [facility] Diagnoses Brugada syndrome History of Procedures ECHO ECHO TTHRC R-T 2D W/WOM-MODE COMPL SPEC&COLR D Alejandrina Wall DO [address] [place] [address] [facility] [address] [address] Referral ID Status Reason Start Date Expiration Date Visits Requested Visits Authorized [id number] New Request Auto-Generat ed Referral 04/01/2025 06/30/2025 1 1 Specialty Diagnoses / Procedures Referred By Mariama mills Referred To Contact INITIAL DEPT Diagnoses Encounter for supervision of high risk young multigravida, antepartum Other pre-existing diabetes mellitus during , antepartum Nontoxic single thyroid nodule Procedures CONSULT TO DIABETES EDUCATION DSME/MNT MEDICAL NUTRITION ASSMT&IVNTJ INDIV EACH 15 ID MEDICAL NUTRITION ASSMT&IVNTJ INDIV EACH 15 ID MEDICAL NUTRITION ASSMT&IVNTJ INDIV EACH 15 ID MEDICAL NUTRITION ASSMT&IVNTJ INDIV EACH 15 ID Akiko Tomlin PA-C [address] [place] [address], [address] [place] [id number] [facility] [place] [address] Referral ID Status Reason Start Date Expiration Date Visits Requested Visits Authorized [id number] Pending Review PCP Requested Referral 04/07/2024 04/07/2025 1 1 Specialty Diagnoses / Procedures Referred By Mariama mills Referred To Contact Nutrition Diagnoses Encounter for supervision of high risk young multigravida, antepartum Other pre-existing diabetes mellitus during , antepartum Nontoxic single thyroid nodule Procedures CONSULT TO NUTRITION THERAPY MEDICAL NUTRITION ASSMT&IVNTJ INDIV EACH 15 ID Akiko Tomlin PA-C [address] [place] [address], [address] [place] [address] Referral ID Status Reason Start Date Expiration Date Visits Requested Visits Authorized [id number] Pending Review PCP Requested Referral 04/07/2024 04/07/2025 1 4 Specialty Diagnoses / Procedures Referred By Mariama mills Referred To Contact Endocrinology Diagnoses Encounter for supervision of high risk young multigravida, antepartum Other pre-existing diabetes mellitus during , antepartum Nontoxic single thyroid nodule Procedures CONSULT TO ENDOCRINOLOGY OFFICE/OUTPATIENT [facility] 60 MINUTES Akiko Tomlin PA-C [address] [place] [address], [address] [place] [address] Referral ID Status Reason Start Date Expiration Date Visits Requested Visits Authorized [id number] Pending Review PCP Requested Referral 04/07/2024 04/07/2025 1 1 Specialty Diagnoses / Procedures Referred By Mariama mills Referred To Contact [facility] Diagnoses Encounter for supervision of high risk young multigravida, antepartum Procedures NUCHAL TRANSLUCENCY WHI US NUCHAL TRANSLUCENCY 1ST GESTATION Akiko Tomlin PA-C [address] [place] [address], [address] [place], [place] [id number] [address] [address] Referral ID Status Reason Start Date Expiration Date Visits Requested Visits Authorized [id number] Pending Review Auto-Generat ed Referral 04/07/2024 04/07/2025 1 1 Specialty Diagnoses / Procedures Referred By Contac t Referred To Contact [facility] Diagnoses Encounter for supervision of high risk young multigravida, antepartum Procedures OBSTETRIC ULTRASOUND WHI US PREG UTERUS AFTER 1ST TRIMEST GESTATION Akiko Tomlin PA-C [address], [place] [address] [place] [id number] Referral ID Status Reason Start Date Expiration Date Visits Requested Visits Authorized [id number] Pending Review Auto-Generat ed Referral 04/07/2024 04/07/2025 1 1 Specialty Diagnoses / Procedures Referred By Contac t Referred To Contact Diagnoses Encounter for supervision of high risk young multigravida, antepartum History of prior with small for gestational age History of prior with IUGR Other pre-existing diabetes mellitus during , antepartum Other cardiomyopathy (HCC) Brugada syndrome Seizure (HCC) Nontoxic single thyroid nodule History of premature rupture of membranes History of delivery, currently History of toxoplasmosis History of laparotomy Procedures CONSULT TO MATERNAL MEDI OFFICE/OUTPATIENT NEW HIGH MDM 60 MINUTES Akiko Tomlin PA-C [address], [address] [place], [place] [id number] Referral ID Status Reason Start Date Expiration Date Visits Requested Visits Authorized [id number] Pending Review PCP Requested Referral Auto-Generate d Referral 04/07/2024 04/07/2025 1 1 Specialty Diagnoses / Procedures Referred By Sandorac t Referred To Contact Diagnoses Encounter for supervision of high risk young multigravida, antepartum History of prior with small for gestational age History of prior with IUGR Other pre-existing diabetes mellitus during , antepartum Other cardiomyopathy (HCC) Brugada syndrome Seizure (HCC) History of premature rupture of membranes History of delivery, currently History of toxoplasmosis History of laparotomy Procedures MPOWER CONSULT Akiko Tomlin PA-C [address], [address] [place] [address] Referral ID Status Reason Start Date Expiration Date Visits Requested Visits Authorized [id number] Ref Not Required PCP Requested Referral 04/07/2024 04/07/2025 1 1 Specialty Diagnoses / Procedures Referred By Mariama t Referred To Contact General Surgery Diagnoses Mastodynia Procedures CONSULT TO GENERAL SURGERY Wagner Conte MD [address] [place] [address] Rocio/Hakeem Manzano [address] [place] [address] Referral ID Status Reason Start Date Expiration Date Visits Requested Visits Authorized [id number] Ref Not Required PCP Requested Referral 07/28/2023 07/27/2024 1 1 Additional Source Comments Goals (unrecognized section and content) Goals may be documented in a n alternate section Source Comments (unrecognize d section and content) In the event this informatio n is protected by the Federal Confidentiality of Alcohol and Drug Abuse Patient Records regulations: The Federal rules restrict any use of the information to criminally investigate or prosecute any alcohol or drug abuse patient.[facility] the event this information is protected by the Federal Confidentiality of Alcohol and Drug Abuse Patient Records regulations: The Federal rules restrict any use of the information to criminally investigate or prosecute any alcohol or drug abuse patient.[facility] CenterIn the event this information is protected by the Federal Confidentiality of Alcohol and Drug Abuse Patient Records regulations: The Federal rules restrict any use of the information to criminally investigate or prosecute any alcohol or drug abuse patient.[facility] CenterIn the event this information is protected by the Federal Confidentiality of Alcohol and Drug Abuse Patient Records regulations: The Federal rules restrict any use of the information to criminally investigate or prosecute any alcohol or drug abuse patient.[facility] CenterIn the event this information is protected by the Federal Confidentiality of Alcohol and Drug Abuse Patient Records regulations: The Federal rules restrict any use of the information to criminally investigate or prosecute any alcohol or drug abuse patient.[facility] CenterIn the event this information is protected by the Federal Confidentiality of Alcohol and Drug Abuse Patient Records regulations: The Federal rules restrict any use of the information to criminally investigate or prosecute any alcohol or drug abuse patient.[facility] CenterIn the event this information is protected by the Federal Confidentiality of Alcohol and Drug Abuse Patient Records regulations: The Federal rules restrict any use of the information to criminally investigate or prosecute any alcohol or drug abuse patient.[facility] CenterIn the event this information is protected by the Federal Confidentiality of Alcohol and Drug Abuse Patient Records regulations: The Federal rules restrict any use of the information to criminally investigate or prosecute any alcohol or drug abuse patient.[facility] CenterIn the event this information is protected by the Federal Confidentiality of Alcohol and Drug Abuse Patient Records regulations: The Federal rules restrict any use of the information to criminally investigate or prosecute any alcohol or drug abuse patient.[facility] CenterIn the event this information is protected by the Federal Confidentiality of Alcohol and Drug Abuse Patient Records regulations: The Federal rules restrict any use of the information to criminally investigate or prosecute any alcohol or drug abuse patient.[facility] CenterIn the event this information is protected by the Federal Confidentiality of Alcohol and Drug Abuse Patient Records regulations: The Federal rules restrict any use of the information to criminally investigate or prosecute any alcohol or drug abuse patient.[facility] CenterIn the event this information is protected by the Federal Confidentiality of Alcohol and Drug Abuse Patient Records regulations: The Federal rules restrict any use of the information to criminally investigate or prosecute any alcohol or drug abuse patient.[facility] CenterIn the event this information is protected by the Federal Confidentiality of Alcohol and Drug Abuse Patient Records regulations: The Federal rules restrict any use of the information to criminally investigate or prosecute any alcohol or drug abuse patient.[facility] CenterIn the event this information is protected by the Federal Confidentiality of Alcohol and Drug Abuse Patient Records regulations: The Federal rules restrict any use of the information to criminally investigate or prosecute any alcohol or drug abuse patient.[facility] CenterIn the event this information is protected by the Federal Confidentiality of Alcohol and Drug Abuse Patient Records regulations: The Federal rules restrict any use of the information to criminally investigate or prosecute any alcohol or drug abuse patient.[facility] CenterIn the event this information is protected by the Federal Confidentiality of Alcohol and Drug Abuse Patient Records regulations: The Federal rules restrict any use of the information to criminally investigate or prosecute any alcohol or drug abuse patient.[facility] CenterIn the event this information is protected by the Federal Confidentiality of Alcohol and Drug Abuse Patient Records regulations: The Federal rules restrict any use of the information to criminally investigate or prosecute any alcohol or drug abuse patient.[facility] CenterIn the event this information is protected by the Federal Confidentiality of Alcohol and Drug Abuse Patient Records regulations: The Federal rules restrict any use of the information to criminally investigate or prosecute any alcohol or drug abuse patient.[facility] CenterIn the event this information is protected by the Federal Confidentiality of Alcohol and Drug Abuse Patient Records regulations: The Federal rules restrict any use of the information to criminally investigate or prosecute any alcohol or drug abuse patient.[facility] CenterIn the event this information is protected by the Federal Confidentiality of Alcohol and Drug Abuse Patient Records regulations: The Federal rules restrict any use of the information to criminally investigate or prosecute any alcohol or drug abuse patient.[facility] CenterIn the event this information is protected by the Federal Confidentiality of Alcohol and Drug Abuse Patient Records regulations: The Federal rules restrict any use of the information to criminally investigate or prosecute any alcohol or drug abuse patient.[facility] CenterIn the event this information is protected by the Federal Confidentiality of Alcohol and Drug Abuse Patient Records regulations: The Federal rules restrict any use of the information to criminally investigate or prosecute any alcohol or drug abuse patient.[facility] CenterIn the event this information is protected by the Federal Confidentiality of Alcohol and Drug Abuse Patient Records regulations: The Federal rules restrict any use of the information to criminally investigate or prosecute any alcohol or drug abuse patient.[facility] CenterIn the event this information is protected by the Federal Confidentiality of Alcohol and Drug Abuse Patient Records regulations: The Federal rules restrict any use of the information to criminally investigate or prosecute any alcohol or drug abuse patient.[facility] CenterIn the event this information is protected by the Federal Confidentiality of Alcohol and Drug Abuse Patient Records regulations: The Federal rules restrict any use of the information to criminally investigate or prosecute any alcohol or drug abuse patient.[facility] CenterIn the event this information is protected by the Federal Confidentiality of Alcohol and Drug Abuse Patient Records regulations: The Federal rules restrict any use of the information to criminally investigate or prosecute any alcohol or drug abuse patient.[facility] CenterIn the event this information is protected by the Federal Confidentiality of Alcohol and Drug Abuse Patient Records regulations: The Federal rules restrict any use of the information to criminally investigate or prosecute any alcohol or drug abuse patient.[facility] CenterIn the event this information is protected by the Federal Confidentiality of Alcohol and Drug Abuse Patient Records regulations: The Federal rules restrict any use of the information to criminally investigate or prosecute any alcohol or drug abuse patient.[facility] CenterIn the event this information is protected by the Federal Confidentiality of Alcohol and Drug Abuse Patient Records regulations: The Federal rules restrict any use of the information to criminally investigate or prosecute any alcohol or drug abuse patient.[facility] CenterIn the event this information is protected by the Federal Confidentiality of Alcohol and Drug Abuse Patient Records regulations: The Federal rules restrict any use of the information to criminally investigate or prosecute any alcohol or drug abuse patient.[facility] CenterIn the event this information is protected by the Federal Confidentiality of Alcohol and Drug Abuse Patient Records regulations: The Federal rules restrict any use of the information to criminally investigate or prosecute any alcohol or drug abuse patient.[facility] CenterIn the event this information is protected by the Federal Confidentiality of Alcohol and Drug Abuse Patient Records regulations: The Federal rules restrict any use of the information to criminally investigate or prosecute any alcohol or drug abuse patient.[facility] CenterIn the event this information is protected by the Federal Confidentiality of Alcohol and Drug Abuse Patient Records regulations: The Federal rules restrict any use of the information to criminally investigate or prosecute any alcohol or drug abuse patient.[facility] CenterIn the event this information is protected by the Federal Confidentiality of Alcohol and Drug Abuse Patient Records regulations: The Federal rules restrict any use of the information to criminally investigate or prosecute any alcohol or drug abuse patient.[facility] CenterIn the event this information is protected by the Federal Confidentiality of Alcohol and Drug Abuse Patient Records regulations: The Federal rules restrict any use of the information to criminally investigate or prosecute any alcohol or drug abuse patient.[facility] CenterIn the event this information is protected by the Federal Confidentiality of Alcohol and Drug Abuse Patient Records regulations: The Federal rules restrict any use of the information to criminally investigate or prosecute any alcohol or drug abuse patient.[facility] CenterIn the event this information is protected by the Federal Confidentiality of Alcohol and Drug Abuse Patient Records regulations: The Federal rules restrict any use of the information to criminally investigate or prosecute any alcohol or drug abuse patient.[facility] CenterIn the event this information is protected by the Federal Confidentiality of Alcohol and Drug Abuse Patient Records regulations: The Federal rules restrict any use of the information to criminally investigate or prosecute any alcohol or drug abuse patient.[facility] CenterIn the event this information is protected by the Federal Confidentiality of Alcohol and Drug Abuse Patient Records regulations: The Federal rules restrict any use of the information to criminally investigate or prosecute any alcohol or drug abuse patient.[facility] CenterIn the event this information is protected by the Federal Confidentiality of Alcohol and Drug Abuse Patient Records regulations: The Federal rules restrict any use of the information to criminally investigate or prosecute any alcohol or drug abuse patient.[facility] CenterIn the event this information is protected by the Federal Confidentiality of Alcohol and Drug Abuse Patient Records regulations: The Federal rules restrict any use of the information to criminally investigate or prosecute any alcohol or drug abuse patient.[facility] CenterIn the event this information is protected by the Federal Confidentiality of Alcohol and Drug Abuse Patient Records regulations: The Federal rules restrict any use of the information to criminally investigate or prosecute any alcohol or drug abuse patient.[facility] CenterIn the event this information is protected by the Federal Confidentiality of Alcohol and Drug Abuse Patient Records regulations: The Federal rules restrict any use of the information to criminally investigate or prosecute any alcohol or drug abuse patient.[facility] CenterIn the event this information is protected by the Federal Confidentiality of Alcohol and Drug Abuse Patient Records regulations: The Federal rules restrict any use of the information to criminally investigate or prosecute any alcohol or drug abuse patient.[facility] CenterIn the event this information is protected by the Federal Confidentiality of Alcohol and Drug Abuse Patient Records regulations: The Federal rules restrict any use of the information to criminally investigate or prosecute any alcohol or drug abuse patient.[facility] CenterIn the event this information is protected by the Federal Confidentiality of Alcohol and Drug Abuse Patient Records regulations: The Federal rules restrict any use of the information to criminally investigate or prosecute any alcohol or drug abuse patient.[facility] CenterIn the event this information is protected by the Federal Confidentiality of Alcohol and Drug Abuse Patient Records regulations: The Federal rules restrict any use of the information to criminally investigate or prosecute any alcohol or drug abuse patient.[facility] CenterIn the event this information is protected by the Federal Confidentiality of Alcohol and Drug Abuse Patient Records regulations: The Federal rules restrict any use of the information to criminally investigate or prosecute any alcohol or drug abuse patient.[facility] CenterIn the event this information is protected by the Federal Confidentiality of Alcohol and Drug Abuse Patient Records regulations: The Federal rules restrict any use of the information to criminally investigate or prosecute any alcohol or drug abuse patient.[facility] CenterIn the event this information is protected by the Federal Confidentiality of Alcohol and Drug Abuse Patient Records regulations: The Federal rules restrict any use of the information to criminally investigate or prosecute any alcohol or drug abuse patient.[facility] CenterIn the event this information is protected by the Federal Confidentiality of Alcohol and Drug Abuse Patient Records regulations: The Federal rules restrict any use of the information to criminally investigate or prosecute any alcohol or drug abuse patient.[facility] CenterIn the event this information is protected by the Federal Confidentiality of Alcohol and Drug Abuse Patient Records regulations: The Federal rules restrict any use of the information to criminally investigate or prosecute any alcohol or drug abuse patient.[facility] CenterIn the event this information is protected by the Federal Confidentiality of Alcohol and Drug Abuse Patient Records regulations: The Federal rules restrict any use of the information to criminally investigate or prosecute any alcohol or drug abuse patient.[facility] CenterIn the event this information is protected by the Federal Confidentiality of Alcohol and Drug Abuse Patient Records regulations: The Federal rules restrict any use of the information to criminally investigate or prosecute any alcohol or drug abuse patient.[facility] CenterIn the event this information is protected by the Federal Confidentiality of Alcohol and Drug Abuse Patient Records regulations: The Federal rules restrict any use of the information to criminally investigate or prosecute any alcohol or drug abuse patient.[facility] CenterIn the event this information is protected by the Federal Confidentiality of Alcohol and Drug Abuse Patient Records regulations: The Federal rules restrict any use of the information to criminally investigate or prosecute any alcohol or drug abuse patient.[facility] CenterIn the event this information is protected by the Federal Confidentiality of Alcohol and Drug Abuse Patient Records regulations: The Federal rules restrict any use of the information to criminally investigate or prosecute any alcohol or drug abuse patient.[facility] CenterIn the event this information is protected by the Federal Confidentiality of Alcohol and Drug Abuse Patient Records regulations: The Federal rules restrict any use of the information to criminally investigate or prosecute any alcohol or drug abuse patient.[facility] CenterIn the event this information is protected by the Federal Confidentiality of Alcohol and Drug Abuse Patient Records regulations: The Federal rules restrict any use of the information to criminally investigate or prosecute any alcohol or drug abuse patient.[facility] CenterIn the event this information is protected by the Federal Confidentiality of Alcohol and Drug Abuse Patient Records regulations: The Federal rules restrict any use of the information to criminally investigate or prosecute any alcohol or drug abuse patient.[facility] CenterIn the event this information is protected by the Federal Confidentiality of Alcohol and Drug Abuse Patient Records regulations: The Federal rules restrict any use of the information to criminally investigate or prosecute any alcohol or drug abuse patient.[facility] CenterIn the event this information is protected by the Federal Confidentiality of Alcohol and Drug Abuse Patient Records regulations: The Federal rules restrict any use of the information to criminally investigate or prosecute any alcohol or drug abuse patient.[facility] CenterIn the event this information is protected by the Federal Confidentiality of Alcohol and Drug Abuse Patient Records regulations: The Federal rules restrict any use of the information to criminally investigate or prosecute any alcohol or drug abuse patient.[facility] CenterIn the event this information is protected by the Federal Confidentiality of Alcohol and Drug Abuse Patient Records regulations: The Federal rules restrict any use of the information to criminally investigate or prosecute any alcohol or drug abuse patient.[facility] CenterIn the event this information is protected by the Federal Confidentiality of Alcohol and Drug Abuse Patient Records regulations: The Federal rules restrict any use of the information to criminally investigate or prosecute any alcohol or drug abuse patient.[facility] CenterIn the event this information is protected by the Federal Confidentiality of Alcohol and Drug Abuse Patient Records regulations: The Federal rules restrict any use of the information to criminally investigate or prosecute any alcohol or drug abuse patient.[facility] CenterIn the event this information is protected by the Federal Confidentiality of Alcohol and Drug Abuse Patient Records regulations: The Federal rules restrict any use of the information to criminally investigate or prosecute any alcohol or drug abuse patient.[facility] CenterIn the event this information is protected by the Federal Confidentiality of Alcohol and Drug Abuse Patient Records regulations: The Federal rules restrict any use of the information to criminally investigate or prosecute any alcohol or drug abuse patient.[facility] CenterIn the event this information is protected by the Federal Confidentiality of Alcohol and Drug Abuse Patient Records regulations: The Federal rules restrict any use of the information to criminally investigate or prosecute any alcohol or drug abuse patient.[facility] CenterIn the event this information is protected by the Federal Confidentiality of Alcohol and Drug Abuse Patient Records regulations: The Federal rules restrict any use of the information to criminally investigate or prosecute any alcohol or drug abuse patient.[facility] CenterIn the event this information is protected by the Federal Confidentiality of Alcohol and Drug Abuse Patient Records regulations: The Federal rules restrict any use of the information to criminally investigate or prosecute any alcohol or drug abuse patient.[facility] CenterIn the event this information is protected by the Federal Confidentiality of Alcohol and Drug Abuse Patient Records regulations: The Federal rules restrict any use of the information to criminally investigate or prosecute any alcohol or drug abuse patient.[facility] CenterIn the event this information is protected by the Federal Confidentiality of Alcohol and Drug Abuse Patient Records regulations: The Federal rules restrict any use of the information to criminally investigate or prosecute any alcohol or drug abuse patient.[facility] CenterIn the event this information is protected by the Federal Confidentiality of Alcohol and Drug Abuse Patient Records regulations: The Federal rules restrict any use of the information to criminally investigate or prosecute any alcohol or drug abuse patient.[facility] CenterIn the event this information is protected by the Federal Confidentiality of Alcohol and Drug Abuse Patient Records regulations: The Federal rules restrict any use of the information to criminally investigate or prosecute any alcohol or drug abuse patient.[facility] CenterIn the event this information is protected by the Federal Confidentiality of Alcohol and Drug Abuse Patient Records regulations: The Federal rules restrict any use of the information to criminally investigate or prosecute any alcohol or drug abuse patient.[facility] CenterIn the event this information is protected by the Federal Confidentiality of Alcohol and Drug Abuse Patient Records regulations: The Federal rules restrict any use of the information to criminally investigate or prosecute any alcohol or drug abuse patient.[facility] CenterIn the event this information is protected by the Federal Confidentiality of Alcohol and Drug Abuse Patient Records regulations: The Federal rules restrict any use of the information to criminally investigate or prosecute any alcohol or drug abuse patient.[facility] CenterIn the event this information is protected by the Federal Confidentiality of Alcohol and Drug Abuse Patient Records regulations: The Federal rules restrict any use of the information to criminally investigate or prosecute any alcohol or drug abuse patient.[facility] CenterIn the event this information is protected by the Federal Confidentiality of Alcohol and Drug Abuse Patient Records regulations: The Federal rules restrict any use of the information to criminally investigate or prosecute any alcohol or drug abuse patient.[facility] CenterIn the event this information is protected by the Federal Confidentiality of Alcohol and Drug Abuse Patient Records regulations: The Federal rules restrict any use of the information to criminally investigate or prosecute any alcohol or drug abuse patient.[facility] CenterIn the event this information is protected by the Federal Confidentiality of Alcohol and Drug Abuse Patient Records regulations: The Federal rules restrict any use of the information to criminally investigate or prosecute any alcohol or drug abuse patient.[facility] CenterIn the event this information is protected by the Federal Confidentiality of Alcohol and Drug Abuse Patient Records regulations: The Federal rules restrict any use of the information to criminally investigate or prosecute any alcohol or drug abuse patient.[facility] CenterIn the event this information is protected by the Federal Confidentiality of Alcohol and Drug Abuse Patient Records regulations: The Federal rules restrict any use of the information to criminally investigate or prosecute any alcohol or drug abuse patient.[facility] CenterIn the event this information is protected by the Federal Confidentiality of Alcohol and Drug Abuse Patient Records regulations: The Federal rules restrict any use of the information to criminally investigate or prosecute any alcohol or drug abuse patient.[facility] CenterIn the event this information is protected by the Federal Confidentiality of Alcohol and Drug Abuse Patient Records regulations: The Federal rules restrict any use of the information to criminally investigate or prosecute any alcohol or drug abuse patient.[facility] CenterIn the event this information is protected by the Federal Confidentiality of Alcohol and Drug Abuse Patient Records regulations: The Federal rules restrict any use of the information to criminally investigate or prosecute any alcohol or drug abuse patient.[facility] CenterIn the event this information is protected by the Federal Confidentiality of Alcohol and Drug Abuse Patient Records regulations: The Federal rules restrict any use of the information to criminally investigate or prosecute any alcohol or drug abuse patient.[facility] CenterIn the event this information is protected by the Federal Confidentiality of Alcohol and Drug Abuse Patient Records regulations: The Federal rules restrict any use of the information to criminally investigate or prosecute any alcohol or drug abuse [facility] Reason for Visit (unrecogniz ed section and content) Reason Comments US Specialty Diagnoses / Procedures Referred By Mariama mills Referred To Contact CLASSIFIED ADVERTISING CLERK Diagnoses premature rupture of membranes (PPROM) with unknown onset of labor Procedures [facility] [address] [place] [address] Referral ID Status Reason Start Date Expiration Date Visits Re quested Visits Authorized [id number] 1 1 Reason Comments Care Specialty Diagnoses / Procedures Referred By Mariama mills Referred To Contact Diagnoses Encounter for supervision of high risk young multigravida, antepartum History of prior with small for gestational age History of prior with IUGR Other pre-existing diabetes mellitus during , antepartum Other cardiomyopathy (HCC) Brugada syndrome Seizure (HCC) Nontoxic single thyroid nodule History of premature rupture of membranes History of delivery, currently History of toxoplasmosis History of laparotomy Procedures CONSULT TO MATERNAL MEDI OFFICE/OUTPATIENT NEW HIGH MDM 60 MINUTES OFFICE/OUTPATIENT NEW MODERATE MDM 45 MINUTES Akiko Tomlin PA-C [address], [address] [place] [address] [place] [address] Referral ID Status Reason Start Date Expiration Date Visits Requested Visits Authorized [id number] Authorized PCP Requested Referral Auto-Generate d Referral 05/11/2024 11/09/2024 99 99 Reason Comments US Referral ID Status Reason Start Date Expiration Date V isits Requested Visits Authorized [id number] Closed PCP Requested Referral Auto-Generated Referral 05/11/2024 11/09/2024 1 1 Reason Comments Breast Problem pain in right breast finished cipro yesterday Reason Comments Follow Up ([facility]) Right breast incisio n, abscess [facility] Reason Comments Follow Up Breast abscess Reason Comments Appointment Reason Comments Follow Up Right breast abscess Reason Comments Sore Throat Fernández pain rated 6, SOB , fever, nasal [...] mills Referred To Contact Internal Medicine / [facility] Diagnoses left shoulder injury, occured today Procedures EST SAME DAY Self Yoel Guzmán, SUSAN.DRAPERY CUTTER MACHINE [address] [place] [address] Referral ID Status Reason Start Date Expiration Date Visits Re quested Visits Authorized [id number] Denied 05/06/2023 08/04/2023 1 0 Reason Comments Follow Up Mastodynia breast Reason Comments Follow Up Follow up after ultr asound Reason Comments Dermatitis Reason Comments Abdominal Pain Back Pain Reason Comments Nasal Congestion drainage, cough, sne ezing, headache x 5 days, sore throat after being intubated on Reason Comments Care Specialty Diagnoses / Procedures Referred By Mariama mills Referred To Contact INITIAL DEPT Diagnoses Encounter for supervision of high risk young multigravida, antepartum Other pre-existing diabetes mellitus during , antepartum Nontoxic single thyroid nodule Procedures CONSULT TO DIABETES EDUCATION DSME/MNT MEDICAL NUTRITION ASSMT&IVNTJ INDIV EACH 15 ID MEDICAL NUTRITION ASSMT&IVNTJ INDIV EACH 15 ID MEDICAL NUTRITION ASSMT&IVNTJ INDIV EACH 15 ID MEDICAL NUTRITION ASSMT&IVNTJ INDIV EACH 15 ID Akiko Tomlin PA-C [address] [place] [address], [address] [place] [address] Initial Department [place] [id number] Referral ID Status Reason Start Date Expiration Date V isits Requested Visits Authorized [id number] Closed PCP Requested Referral 04/07/2024 11/09/2024 1 1 Specialty Diagnoses / Procedures Referred By Mariama t Referred To Contact [facility] Diagnoses Wants antepartum ultrasound in first trimester Procedures OBSTETRIC ULTRASOUND WHI US PREG UTERUS AFTER 1ST TRIMEST GESTATION January, Jose A Chavez MD [address] [place] [address] [facility] [address] [place] [address] Referral ID Status Reason Start Date Expiration Date Visits Requested Visits Authorized [id number] Authorized Auto-Generat ed Referral 04/23/2024 11/09/2024 20 20 Reason Comments Consult Reason Comments Appointment 07/02 CX Reason Comments Care Reason Comments Appointment COB Reason Comments Body Shop Floorperson - Other COB intro/intak e Reason Comments Body Shop Floorperson - Other Initial intake Reason Comments US Specialty Diagnoses / Procedures Referred By Mariama mills Referred To Contact [facility] Diagnoses History of delivery, currently Encounter for supervision of normal , unspecified, unspecified trimester Procedures OBSTETRIC ULTRASOUND WHI US PREG UTERUS AFTER 1ST TRIMEST GESTATION January, Jose A Chavez MD [address] [place] [address] [facility] [address] [place] [address] Referral ID Status Reason Start Date Expiration Date Visits Requested Visits Authorized [id number] Authorized Auto-Generat ed Referral 05/11/2024 11/09/2024 20 20 Reason Comments Patient Question Reason Comments Maternal Care Plan Care Coordination Reason Comments left big toe pain Kicked a dresser 2 d ays ago Specialty Diagnoses / Procedures Referred By Contac t Referred To Contact [facility] Diagnoses Poor growth affecting management of mother in second trimester, single or unspecified fetus Procedures OBSTETRIC ULTRASOUND WHI US PREG UTERUS AFTER 1ST [place] [address] [place] [address] [address] Referral ID Status Reason Start Date Expiration Date Visits Requested Visits Authorized [id number] Authorized Auto-Generat ed Referral 07/13/2024 11/09/2024 20 20 Reason Onset Date Comments Returning Patient's Call 07/17/2024 Specialty Diagnoses / Procedures Referred By Contac t Referred To Contact [facility] Diagnoses History of delivery, currently Procedures OBSTETRIC ULTRASOUND WHI US PREG UTERUS AFTER 1ST TRIMEST GESTATION January, Jose A Chavez MD [address] [place] [address] [address] Referral ID Status Reason Start Date Expiration Date Visits Requested Visits Authorized [id number] Authorized Auto-Generat ed Referral 07/22/2024 11/09/2024 20 20 Specialty Diagnoses / Procedures Referred By Contac t Referred To Contact Radiology / [facility] Diagnoses xr chest rm 4 Procedures XR CHEST Yoel Guzmán, SUSAN.DRAPERY CUTTER MACHINE [address] [place] [address] [facility] [address] [place] [address] Referral ID Status Reason Start Date Expiration Date Visits Re quested Visits Authorized [id number] Closed 09/10/2022 09/10/2022 1 1 Specialty Diagnoses / Procedures Referred By Contac t Referred To Contact [facility] Diagnoses Encounter for supervision of high risk young multigravida, antepartum History of prior with IUGR History of delivery, currently Procedures OBSTETRIC ULTRASOUND WHI US PREG UTERUS AFTER 1ST TRIMEST GESTATION Anthony Cook APRN.DRAPERY CUTTER MACHINE [address] [facility] [address] [place] [address] [facility] [address] [place] [address] Referral ID Status Reason Start Date Expiration Date Visits Requested Visits Authorized [id number] Authorized Auto-Generat ed Referral 11/09/2024 20 20 Reason Comments Orders Breast pump prescrip tion Reason Comments Dental Problem Patient is 29 weeks , here with complaint of dental pain to the lower right mid jaw for the last three days. Reason Comments ED Follow Up Reason Onset Date Comments Body Shop Floorperson - Hospital Follow Up 10/07/2024 Reason Comments Early Reason Comments Care Reason Onset Date Comments Refill Request 12/08/2024 Reason Comments Appointment Body Shop Floorperson - Other Reason Comments New Patient Reason Comments New Fracture Pain Reason Comments Radio Gen RMP Radiology Service Pr ogress NotePATIENT NAME: Rosy DominiqueMRN: [id number] OF SERVICE: April 29, 2025TIME: 10:50 AMPATIENT IDENTITY VERIFICATION COMPLETED USING TWO (2) IDENTIFIERS: Name and Date of confirmed by patient verbally.FALL SCREENING: Has the patient had 2 falls in the last year or 1 fall with injury or currently using an Ambulatory Assistive Device (Walker, Cane, Wheelchair, Crutches, etc.)? Yes, Patient High Risk for Falls What interventions were put in place Specialty Diagnoses / Procedures Referred By Contac t Referred To Contact XR IMAGING Diagnoses Acute left ankle pain Procedures XR ANKLE GENERAL 3V AP/LAT/OBL LEFT RADEX ANKLE COMPLETE MINIMUM 3 VIEWS Isaura Lopez, OVERHEAD CRANE INSPECTOR.DRAPERY CUTTER MACHINE [address] [place] [address] Phone: tel: fax: [place] [phone] Referral ID Status Reason Start Date Expiration Date V isits Requested Visits Authorized [id number] Closed Auto-Generate d Referral 04/29/2025 11/09/2025 1 1 Reason Comments Menstrual Problem Reason Comments PT Eval Specialty Diagnoses / Procedures Referred By Contac t Referred To Contact PHYSICAL THERAPY Diagnoses Acute left ankle pain Closed fracture of head of metatarsal bone of left foot, initial encounter Nondisplaced fracture of proximal phalanx of left great toe, initial encounter for closed fracture Pain in left foot Procedures CONSULT TO PHYSICAL THERAPY PHYSICAL THERAPY EVALUATION HIGH COMPLEX 45 MINS Isaura Lopez, OVERHEAD CRANE INSPECTOR.DRAPERY CUTTER MACHINE [address] [place] [address] Phone: tel: fax: Mireille Menjivar, PT [address] [place] [address] Phone: tel: Referral ID Status Reason Start Date Expiration Date Visits Requested Visits Authorized [id number] Authorized Auto-Generat ed Referral 04/29/2025 11/09/2025 30 30 Care Teams (unrecognized sec tion and content) Construction Director Relationship Specialty Start Date End Date Connor Martini DO [address] [place] [address] PCP - General Family Medicine 02/26/18 Construction Director Relationship Specialty Start Date End Date Connor Martini DO [address] [place], [place] [address] PCP - General Family Medicine 02/26/18 Construction Director Relationship Specialty Start Date End Date Connor Martini DO [address] [place] [address] PCP - General Family Medicine 02/26/18 Construction Director Relationship Specialty Start Date End Date Connor Martini DO [address] [place], [place] [id number] PCP - General Family Medicine 02/26/18 Construction Director Relationship Specialty Start Date End Date Connor Martini DO [address] [place] [address] PCP - General Family Medicine 02/26/18 Construction Director Relationship Specialty Start Date End Date Connor Martini DO [address] [place] [address] PCP - General Family Medicine 02/26/18 Team Status: Active Member Role Status Dates Dr. Connor Martini DO Family Provider Active Dr. Connor Martini DO Primary Care Provider Active Team Status: Inactive Member Role Status Dates Dr. Connor Martini DO Primary Care Provider, Referring P rovider Active Dr. Etelvina Calderon DO Attending Provider Activ e Team Status: Active Member Role Status Dates Dr. Connor Martini DO Primary Care Provider Active Amilcar Wiggins MD Emergency Provider Active Dr. Etelvina Calderon DO Admit Prov ider, Attending Provider, Other Provider Active Dr. Wagner Conte MD Other Provider Active Team Status: Active Member Role Status Dates Dr. Connor Martini DO Primary Care Provider Active Amilcar Wiggins MD Emergency Provider Active Dr. Etelvina Calderon DO Admit Provider, Other Pr ovider Active Dr. Wagner Conte MD Other Provider Active Dr. Marina Valero MD Attending Provider Active Team Status: Active Member Role Status Dates Dr. Connor Martini DO Primary Care Provider Active Dr. Filippo Vanegas MD Attending Provider Active Dr. Etelvina Calderon DO Referring Provider Activ e Team Status: Inactive Member Role Status Dates Dr. Connor Martini DO Primary Care Provider Active Ed Physician Provider Attending Provider, Emergency Pr ovider Active Team Status: Inactive Member Role Status Dates Dr. Connor Martini DO Primary Care Provider Active Dr. Wagner Frias DO Attending Provider, Emergency P rovider Active Team Status: Inactive Member Role Status Dates Dr. Connor Martini DO Primary Care Provider Active Amilcar Wiggins MD Emergency Provider Active Dr. Etelvina Calderon DO Admit Provider, Attendin g Provider Active Dr. Wagner Conte MD Other Provider Active Team Status: Inactive Member Role Status Dates Dr. Connor Martini DO Primary Care Provider Active [facility] Attending Provider Active Team Status: Inactive Member Role Status Dates Dr. Connor Martini DO Primary Care Provider Active Dr. Wagner Conte MD Attending Provider Active Team Status: Inactive Member Role Status Dates Dr. Connor Martini DO Primary Care Provider Active Dr. Max Young MD Attending Provider, Emergency Pro vider Active Team Status: Inactive Member Role Status Dates Dr. Connor Martini DO Primary Care Provider Active Dr. Florentin Toribio , DO Attending Provider Active Team Status: Inactive Member Role Status Dates Dr. Connor Martini DO Primary Care Provider Active Dr. Tyson Leach DO Attending Provider, Emergency Provide r Active Team Status: Inactive Member Role Status Dates Dr. Connor Martini DO Primary Care Provider Active Gi Wade FORENSIC MEDICAL EXAMINER, FORENSIC MEDICAL EXAMINER-C Attending Provider, Referring Provider Active Team Status: Active Member Role Status Dates Dr. Connor Martini DO Primary Care Provider Active Gi Wade FORENSIC MEDICAL EXAMINER, FORENSIC MEDICAL EXAMINER-C Attending Provider, Referring Provider Active Construction Director Relationship Specialty Start Date End Date Connor Martini DO [address] [place] [address] PCP - General Family Medicine 02/26/18 Team Status: Inactive Member Role Status Dates Dr. Connor Martini DO Primary Care Provider Active Dr. Brandon Galeano MD Emergency Provider Active Construction Director Relationship Specialty Start Date End Date Connor Martini DO [address] [place] [address] PCP - General Family Medicine 02/26/18 Team Status: Inactive Member Role Status Dates Dr. Connor Martini DO Primary Care Provider Active Dr. Brandon Galeano MD Attending Provider, Emergency Provider Active Team Status: Inactive Member Role Status Dates Dr. Connor Martini DO Primary Care Provider, Attending Wyatt langley Active Team Status: Inactive Member Role Status Dates Dr. Connor Martini DO Primary Care Provider Active Dr. Maria Guadalupe Brody MD Emergency Provider Active Construction Director Relationship Specialty Start Date End Date Connor Martini DO [address] [place] [address] PCP - General Family Medicine 02/26/18 Construction Director Relationship Specialty Start Date End Date Connor Martini DO [address] [place] [address] PCP - General Family Medicine 02/26/18 Construction Director Relationship Specialty Start Date End Date Connor Martini DO [address] [place] [address] PCP - General Family Medicine 02/26/18 Team Status: Inactive Member Role Status Dates Dr. Connor Martini , DO Primary Care Provider Active Dr. Maria Guadalupe Brody MD Attending Provider, Emergency Pr ovider Active Team Status: Inactive Member Role Status Dates Dr. Connor Martini , DO Primary Care Provider Active Dr. Matthias Lemos , DO Emergency Provider Active Team Status: Inactive Member Role Status Dates Dr. Connor Martini , DO Primary Care Provider Active Dr. Matthias Lemos , DO Attending Provider, Emergency Pr ovider Active Team Status: Active Member Role Status Dates Dr. Connor Martini DO Family Provider Active Dr. Florentin Toribio DO Primary Care Provider Active Team Status: Inactive Member Role Status Dates Dr. Florentin Toribio DO Primary Care Prov ider, Attending Provider, Referring Provider Active Team Status: Active Member Role Status Dates Dr. Florentin Toribio DO Primary Care Prov ider, Attending Provider, Referring Provider Active Team Status: Inactive Member Role Status Dates Dr. Florentin Toribio , Primary Care Provider Active Amilcar Wiggins MD Emergency Provider Active Construction Director Relationship Specialty Start Date End Date Connor Martini [address] [place] [address] PCP - General Family Medicine 02/26/18 Construction Director Relationship Specialty Start Date End Date Connor Martini [address] [place] [address] PCP - General Family Medicine 02/26/18 Team Status: Inactive Member Role Status Dates Dr. Florentin Toribio DO Primary Care Provider Active Amilcar Wiggins MD Attending Provider, Emergency Provid er Active Team Status: Inactive Member Role Status Dates Dr. Florentin Toribio , DO Primary Care Provider Active Dr. Matthias Andes , DO Emergency Provider Active Construction Director Relationship Specialty Start Date End Date Connor Martini DO [address] [place] [address] PCP - General Family Medicine 02/26/18 Construction Director Relationship Specialty Start Date End Date Connor Martini DO [address] [place] [address] PCP - General Family Medicine 02/26/18 Construction Director Relationship Specialty Start Date End Date Connor Martini DO [address] [place] [address] PCP - General Family Medicine 02/26/18 Construction Director Relationship Specialty Start Date End Date Connor Martini DO [address] [place] [address] PCP - General Family Medicine 02/26/18 Team Status: Inactive Member Role Status Dates Dr. Florentin Toribio , DO Primary Care Provider, Referrin g Provider Active Dr. Etelvina Calderon , DO Attending Provider Activ e Team Status: Inactive Member Role Status Dates Dr. Florentin Toribio , DO Primary Care Provider Active Dr. Matthias Lemos , DO Attending Provider, Emergency Pr ovider Active Team Status: Inactive Member Role Status Dates Dr. Florentin Toribio , DO Primary Care Provider Active Dr. Connor Martini , DO Attending Provider, Referring Prov ider Active Team Status: Inactive Member Role Status Dates Dr. Florentin Toribio , DO Primary Care Provider Active Dr. Godwin Hutchinson , DO Emergency Provider Active Construction Director Relationship Specialty Start Date End Date Connor Martini DO [address] [place] [address] PCP - General Family Medicine 02/26/18 Construction Director Relationship Specialty Start Date End Date Connor Martini [address] [place] [phone] PCP - General Family Medicine 03/17/24 Construction Director Relationship Specialty Start Date End Date Connor Martini [address] [place] [phone] PCP - General Family Medicine 03/17/24 Construction Director Relationship Specialty Start Date End Date Connor Martini DO [address] [place], [place] [phone] PCP - General Family Medicine 02/26/18 Construction Director Relationship Specialty Start Date End Date Connor Martini [address] [place] [phone] PCP - General Family Medicine 03/17/24 Construction Director Relationship Specialty Start Date End Date Connor Martini [address] [place] [phone] PCP - General Family Medicine 03/17/24 Construction Director Relationship Specialty Start Date End Date Connor Martini DO [address] [place], [place] [id number] [phone] PCP - General Family Medicine 02/26/18 Construction Director Relationship Specialty Start Date End Date Connor Martini DO [address] [place], [place] [id number] [phone] PCP - General Family Medicine 02/26/18 Construction Director Relationship Specialty Start Date End Date Malys, Connor A, DO [address] [place] [address] PCP - General Family Medicine 02/26/18 Construction Director Relationship Specialty Start Date End Date Connor Martini DO [address] [place] [address] PCP - General Family Medicine 02/26/18 Construction Director Relationship Specialty Start Date End Date Connor Martini DO [address] [place] [address] PCP - General Family Medicine 02/26/18 Construction Director Relationship Specialty Start Date End Date Connor Martini DO [address] [place] [address] PCP - General Family Medicine 02/26/18 Construction Director Relationship Specialty Start Date End Date Connor Martini DO [address] [place] [address] PCP - General Family Medicine 02/26/18 Construction Director Relationship Specialty Start Date End Date Connor Martini DO [address] [place] [address] PCP - General Family Medicine 02/26/18 Construction Director Relationship Specialty Start Date End Date Connor Martini DO [address] [place] [address] PCP - General Family Medicine 02/26/18 Construction Director Relationship Specialty Start Date End Date MalConnor anderson DO [address] [place], [place] [address] PCP - General Family Medicine 02/26/18 Construction Director Relationship Specialty Start Date End Date Connor Martini DO [address] [place], [place] [address] PCP - General Family Medicine 02/26/18 Construction Director Relationship Specialty Start Date End Date Connor Martini DO [address] [place], [place] [address] PCP - General Family Medicine 02/26/18 Construction Director Relationship Specialty Start Date End Date Connor Martini DO [address] [place] [address] PCP - General Family Medicine 02/26/18 Moy Lund, RN Registered Nurse 05/07/24 12/21/24 Construction Director Relationship Specialty Start Date End Date Connor Martini DO [address] [place], [place] [address] PCP - General Family Medicine 02/26/18 Moy Lund, RN Registered Nurse 05/07/24 12/21/24 Construction Director Relationship Specialty Start Date End Date Connor Martini DO [address] [place] [address] PCP - General Family Medicine 02/26/18 Moy Lund, RN Registered Nurse 05/07/24 12/21/24 Construction Director Relationship Specialty Start Date End Date Vini Connorsoraya Lira DO [address] [place], [place] [address] PCP - General Family Medicine 02/26/18 Moy Lund, RN Registered Nurse 05/07/24 12/21/24 Construction Director Relationship Specialty Start Date End Date Connor Martini DO [address] [place] [address] PCP - General Family Medicine 02/26/18 Moy Lund, RN Registered Nurse 05/07/24 12/21/24 Construction Director Relationship Specialty Start Date End Date Connor Martini DO [address] [place] [address] PCP - General Family Medicine 02/26/18 Moy Lund, RN Registered Nurse 05/07/24 12/21/24 Construction Director Relationship Specialty Start Date End Date Connor Martini DO [address] [place], [place] [address] PCP - General Family Medicine 02/26/18 Moy Lund head teacherPhysician Underwriter 05/07/24 12/21/24 Construction Director Relationship Specialty Start Date End Date Connor Martini DO [address] [place] [address] PCP - General Family Medicine 02/26/18 Moy Lund head teacherPhysician Underwriter 05/07/24 12/21/24 Construction Director Relationship Specialty Start Date End Date Connor Martini DO [address] [place] [address] PCP - General Family Medicine 02/26/18 Moy Lund head teacherPhysician Underwriter 05/07/24 12/21/24 Construction Director Relationship Specialty Start Date End Date Connor Martini DO [address] [place], [place] [address] PCP - General Family Medicine 02/26/18 Moy Lund, head teacherPhysician Underwriter 05/07/24 12/21/24 Construction Director Relationship Specialty Start Date End Date Connor Martini DO [address] [place] [address] PCP - General Family Medicine 02/26/18 Moy Lnud, head teacherPhysician Underwriter 05/07/24 12/21/24 Construction Director Relationship Specialty Start Date End Date Connor Martini DO [address] [place] [address] PCP - General Family Medicine 02/26/18 Moy Lund, head teacherPhysician Underwriter 05/07/24 12/21/24 Construction Director Relationship Specialty Start Date End Date Connor Martini DO [address] [place], [place] [address] PCP - General Family Medicine 02/26/18 Moy Lund, head teacherPhysician Underwriter 05/07/24 12/21/24 Construction Director Relationship Specialty Start Date End Date Connor Martini DO [address] [place], [place] [address] PCP - General Family Medicine 02/26/18 Moy Lund, head teacherPhysician Underwriter 05/07/24 12/21/24 Construction Director Relationship Specialty Start Date End Date Connor Martini DO [address] [place] [address] PCP - General Family Medicine 02/26/18 Moy Lund, head teacherPhysician Underwriter 05/07/24 12/21/24 Construction Director Relationship Specialty Start Date End Date Connor Martini DO [address] [place], [place] [phone] PCP - General Family Medicine 02/26/18 Moy Lund, head teacherPhysician Underwriter 05/07/24 12/21/24 Construction Director Relationship Specialty Start Date End Date Connor Martini DO [address] [place], [place] [phone] PCP - General Family Medicine 02/26/18 Moy Lund head teacherPhysician Underwriter 05/07/24 12/21/24 Construction Director Relationship Specialty Start Date End Date Connor Martini DO [address] [place], [place] [address] PCP - General Family Medicine 02/26/18 Construction Director Relationship Specialty Start Date End Date Connor Martini DO [address] [place], [place] [id number] PCP - General Family Medicine 02/26/18 Moy Lund head teacherPhysician Underwriter 05/07/24 12/21/24 Construction Director Relationship Specialty Start Date End Date Connor Martini DO [address] [place], [place] [id number] PCP - General Family Medicine 02/26/18 Construction Director Relationship Specialty Start Date End Date Connor Martini DO [address] [place] [address] PCP - General Family Medicine 02/26/18 Moy Lund, head teacherPhysician Underwriter 05/07/24 12/21/24 Construction Director Relationship Specialty Start Date End Date Connor Martini DO [address] [place] [address] PCP - General Family Medicine 02/26/18 Moy Lund head teacherPhysician Underwriter 05/07/24 12/21/24 Construction Director Relationship Specialty Start Date End Date Connor Martini DO [address] [place] [address] PCP - General Family Medicine 02/26/18 Moy Lund head teacherPhysician Underwriter 05/07/24 12/21/24 Construction Director Relationship Specialty Start Date End Date Connor Martini DO [address] [place] [address] PCP - General Family Medicine 02/26/18 Moy Lund head teacherPhysician Underwriter 05/07/24 12/21/24 Construction Director Relationship Specialty Start Date End Date Connor Martini DO [address] [place] [address] PCP - General Family Medicine 02/26/18 Moy Lund head teacherPhysician Underwriter 05/07/24 12/21/24 Construction Director Relationship Specialty Start Date End Date Connor Martini DO [address] [place] [address] PCP - General Family Medicine 02/26/18 Spada, Moy, head teacherPhysician Underwriter 05/07/24 12/21/24 Construction Director Relationship Specialty Start Date End Date Connor Martini DO [address] [place] [address] PCP - General Family Medicine 02/26/18 Moy Lund head teacherPhysician Underwriter 05/07/24 12/21/24 Construction Director Relationship Specialty Start Date End Date Connor Martini DO [address] [place] [address] PCP - General Family Medicine 02/26/18 Moy Lund head teacherPhysician Underwriter 05/07/24 12/21/24 Construction Director Relationship Specialty Start Date End Date Connor Martini DO [address] [place] [address] PCP - General Family Medicine 02/26/18 Moy Lund head teacherPhysician Underwriter 05/07/24 12/21/24 Construction Director Relationship Specialty Start Date End Date Connor Martini DO [address] [place] [address] PCP - General Family Medicine 02/26/18 Moy Lund RN Physician Underwriter 05/07/24 12/21/24 Construction Director Relationship Specialty Start Date End Date Connor Martini DO [address] [place] [address] PCP - General Family Medicine 02/26/18 Moy Lund head teacherPhysician Underwriter 05/07/24 12/21/24 Construction Director Relationship Specialty Start Date End Date Connor Martini DO [address] [place] [address] PCP - General Family Medicine 02/26/18 Moy Lund, head teacherPhysician Underwriter 05/07/24 12/21/24 Construction Director Relationship Specialty Start Date End Date Connor Martini DO [address] [place] [address] PCP - General Family Medicine 02/26/18 Construction Director Relationship Specialty Start Date End Date Connor Martini DO [address] [place] [address] PCP - General Family Medicine 02/26/18 Construction Director Relationship Specialty Start Date End Date Connor Martini DO [address] [place] [address] PCP - General Family Medicine 02/26/18 Construction Director Relationship Specialty Start Date End Date Connor Martini DO [address] [place] [address] PCP - General Family Medicine 02/26/18 Construction Director Relationship Specialty Start Date End Date Connor Martini DO [address] [place] [address] PCP - General Family Medicine 02/26/18 Construction Director Relationship Specialty Start Date End Date Connor Martini DO [address] [place] [address] PCP - General Family Medicine 02/26/18 Construction Director Relationship Specialty Start Date End Date Connor Martini DO [address] [place], [place] [address] PCP - General Family Medicine 02/26/18 Construction Director Relationship Specialty Start Date End Date Connor Martini DO [address] [place], [place] [address] PCP - General Family Medicine 02/26/18 Construction Director Relationship Specialty Start Date End Date Connor Martini DO [address] [place], [place] [id number] PCP - General Family Medicine 02/26/18 Team Status: Active Member Role Status Dates Dr. Florentin Toribio DO Primary Care Provider Active Team Status: Inactive Member Role Status Dates Dr. Florentin Toribio DO Primary Care Provider Active Start: November 29, 2024 End: November 29, 2024 Dr. Wagner Frias DO Attending Provider Active Start: November 29, 2024 End: November 29, 2024 Dr. Wagner Frias DO Emergency Provider Active Start: November 29, 2024 End: November 29, 2024 Team Status: Inactive Member Role Status Dates Dr. Florentin Toribio DO Primary Care Provider Active Start: February 10, 2025 End: February 11, 2025 Dr. Matthias Lemos DO Emergency Provider Active Start: February 10, 2025 End: February 11, 2025 Team Status: Inactive Member Role Status Dates Dr. Florentin Toribio DO Primary Care Provider Active Start: February 10, 2025 End: February 11, 2025 Dr. Matthias Lemos DO Attending Provider Active Start: February 10, 2025 End: February 11, 2025 Dr. Matthias Lemos DO Emergency Provider Active Start: February 10, 2025 End: February 11, 2025 Team Status: Inactive Member Role Status Dates Dr. Florentin Toribio DO Primary Care Provider Active Start: March 24, 2025 End: March 25, 2025 Dr. Matthias Lemos DO Emergency Provider Active Start: March 24, 2025 End: March 25, 2025 Construction Director Relationship Specialty Start Date End Date Connor Martini DO [address] [place] [address] PCP - General Family Medicine 02/26/18 Construction Director Relationship Specialty Start Date End Date Connor Martini DO [address] [place], [place] [address] PCP - General Family Medicine 02/26/18 Construction Director Relationship Specialty Start Date End Date Connor Martini DO [address] [place], [place] [id number] PCP - General Family Medicine 02/26/18 Team Status: Active Member Role/Relationship Status Dates Dr. Florentin Toribio DO Primary Care Provider Active Team Status: Inactive Member Role/Relationship Status Dates Dr. Florentin Toribio DO Primary Care Provider Active Start: February 10, 2025 End: February 11, 2025 Dr. Matthias Lemos DO Attending Provider Active Start: February 10, 2025 End: February 11, 2025 Dr. Matthias Lemos DO Emergency Provider Active Start: February 10, 2025 End: February 11, 2025 Team Status: Inactive Member Role/Relationship Status Dates Dr. Florentin Toribio DO Primary Care Provider Active Start: March 24, 2025 End: March 25, 2025 Dr. Matthias Lemos DO Attending Provider Active Start: March 24, 2025 End: March 25, 2025 Dr. Matthias Lemos DO Emergency Provider Active Start: March 24, 2025 End: March 25, 2025 Team Status: Inactive Member Role/Relationship Status Dates Dr. Florentin Toribio DO Primary Care Provider Active Start: May 10, 2025 End: May 10, 2025 Dr. Max Young MD Emergency Provider Active S tart: May 10, 2025 End: May 10, 2025 Construction Director Relationship Specialty Start Date End Date Connor Martini DO [facility] [address] [place] [address] PCP - General Family Medicine 02/26/18 Construction Director Relationship Specialty Start Date End Date Connor Martini DO [address] [place], [place] [address] [address] PCP - General Family Medicine 02/26/18 Care Team (unrecognized sect ion and content) Care Team Personnel Name: CONNOR MARTINI DO Member Role: Primary Care Physician Address: Address: [address] [place] [id number]- Name: SCOTT Downs Position: ED RN Member Role: ED RN Name: TENZIN SHERIDAN DO Position: ED Physician Member Role: Attending Physician Address: Address: [address] [place], [place] [address] Name: MATTEO ORTIZ DO Position: Resident Member Role: ED Physician Address: Address: [address] [place] [address] ED Resident [address] Care Team Related Persons Name: RJ DOMINIQUE Address: Home [address] [place] [address] Care Team Personnel Name: CONNOR MARTINI DO Member Role: Primary Care Physician Address: Address: [address] [place] [address]- [place] Name: Randal Alaniz RN Position: RN Member Role: RN Name: TENZIN SHERIDAN DO Position: ED Physician Member Role: Attending Physician Address: Address: [address] [place], [place] [address] Care Team Related Persons Name: RJ DOMINIQUE Address: Home [address] [place] [address] Care Team Personnel Name: CONNOR MARTINI DO Member Role: Primary Care Physician Address: Address: [address] [place] [phone] [place] Name: TAMMY SNIDER MD Position: ED Physician Member Role: Attending Physician Address: Address: .[address] [place] [address]- [place] Name: Lou Mckeon RN Position: ED RN Member Role: ED RN Care Team Related Persons Name: RJ DOMINIQUE Address: Home [address] [place] [address] INFORMATION SOURCE (unrecogn ized section and content) DATE CREATED AUTHOR 12/12/2022 [facility] DATE CREATED AUTHOR AUTHOR'S ORGANIZ ATION 03/23/2024 [facility] ([place] DATE CREATED AUTHOR AUTHOR'S ORGANIZ ATION 04/06/2024 [facility] DATE CREATED AUTHOR AUTHOR'S ORGANIZ ATION 04/18/2024 [facility] DATE CREATED AUTHOR AUTHOR'S ORGANIZ ATION 05/01/2024 [facility] DATE CREATED AUTHOR AUTHOR'S ORGANIZ ATION 07/03/2024 [facility] DATE CREATED AUTHOR AUTHOR'S ORGANIZ ATION 07/16/2024 [facility] DATE CREATED AUTHOR AUTHOR'S ORGANIZ ATION 05/11/2025 [facility] DATE CREATED AUTHOR AUTHOR'S ORGANIZ ATION 05/19/2025 [facility] DATE CREATED AUTHOR AUTHOR'S ORGANIZ ATION 06/02/2025 [facility] Scheduled Active and Recently Administ ered Medications (unrecognized section and content) Medication Order 03/15/2024 03/16/2024 03/17/2024 acetaminophen (Tylenol) tablet 650 mg (COMPLETED) 650 mg, Oral, Once, On Fri03/17/24 at 0045, For 1 dose, Maximum dose of acetaminophen is 4000 mg from all sources in 24 hours. 0127 (Given - Provid er: Bc Vazquez RN) cephalexin (Keflex) capsule 500 mg (COMPLETED) 500 mg, Oral, Once, On Fri03/17/24 at 0245, For 1 dose, Suspected Indication (Select all that apply): Urinary Tract Infection 0302 (Given - Provid er: Bc Vazquez RN) dimenhyDRINATE (Dramamine) tablet 50 mg (COMPLETED) 50 mg, Oral, Once, On Fri03/17/24 at 1245, For 1 dose, Preprocedure 1241 (Given - Provid er: Milena Chambers RN) levETIRAcetam (Keppra) tablet 500 mg (COMPLETED) 500 mg, Oral, Once, On Fri03/17/24 at 1245, For 1 dose, Preprocedure, Do not crush or chew. 1247 (Given - Provid er: Milena Chambers RN) sodium chloride 0.9 % bolus 1,000 mL (COMPLETED) 1,000 mL, IntraVENous, at 1,000 mL/hr, Administer over 1 Hours, Once, On Fri03/17/24 at 0045, For 1 dose 0126 (New Bag - Prov ider: Bc Vazquez RN)0226 (Stopped - Provider: Bc Vazquez RN) sodium chloride 0.9 % infusion (COMPLETED) 100 mL/hr, IntraVENous, Once, On Fri03/17/24 at 0555, For 1 dose 0650 (New Bag - Prov ider: Yady Bailey LPN) sodium chloride 0.9% (NS) flush 10 mL 10 mL, IntraVENous, Every 12 hours scheduled (2 times per day), First dose on Fri03/17/24 at 1035 1035 (Canceled Entry - Provider: Automatic Discharge Provider - Comment: Automatically canceled at discontinue of medication order)1207 (JAN Hold - Provider: Automatic Transfer Provider - Reason: Patient not available)1855 (JAN Unhold - Provider: Automatic Discharge Provider) sodium chloride 0.9% (NS) flush 10 mL 10 mL, IntraVENous, Every 12 hours scheduled (2 times per day), First dose on Fri03/17/24 at 1055, Preprocedure 1055 (Canceled Entry - Provider: Automatic Discharge Provider - Comment: Automatically canceled at discontinue of medication order)1207 (JAN Hold - Provider: Automatic Transfer Provider - Reason: Patient not available)1855 ([facility] Unhold - Provider: Automatic Discharge Provider) Continuous Medication Order 03/15/2024 03/16/2024 03/17/2024 sodium chloride 0.9 % infusion 125 mL/hr, IntraVENous, Continuous, Starting on Fri03/17/24 at 1055, Preprocedure 1102 (New Bag - Prov ider: Radha Florence RN)1409 (Continued by Anesthesia - Provider: SUSAN Stauffer CRNA)1446 (Paused - Provider: SUSAN Stauffer CRNA - Comment: Switch to gravity)1447 (New Bag - Provider: Florentin Sewell, OVERHEAD CRANE INSPECTOR - POWER SHOVEL OPERATOR) PRN Medication Order 03/15/2024 03/16/2024 03/17/2024 HYDROmorphone (Dilaudid) injection 0.5 mg (CANCELED) 0.5 mg, IntraVENous, Every 5 min PRN, severe pain (7-10), Starting on Fri03/17/24 at 1512, For 4 doses, Recovery (only), Phase I and Phase II- Initial therapy for severe pain (7-10). Restricted to a 90 minute time frame starting when the patient can verbally state their pain score. If after 2 doses the pain score does not decrease by more than one point, then call the provider. If oral meds are utilized, do not return to initial therapy medications. 1539 (Given - Provid er: Anna Simon RN)1558 (Given - Provider: Anna Simon RN) ondansetron (Zofran) injection 4 mg 4 mg, IntraVENous, Every 6 hours PRN, nausea, vomiting, Starting on Fri03/17/24 at 0926 1103 (Given - Provid er: Radha Florence RN)1207 (JAN Hold - Provider: Automatic Transfer Provider - Reason: Patient not available)1855 (JAN Unhold - Provider: Automatic Discharge Provider) oxyCODONE (Roxicodone) immediate release tablet 5 mg (COMPLETED)(Linked Group 1) 5 mg, Oral, PRN, moderate pain (4-6), Starting on Fri03/17/24 at 1512, For 1 dose, Recovery (only), PHASE II 1633 (Given - Provid er: Anna Simon RN) sodium chloride 0.9 % infusion 5-250 mL/hr, IntraVENous, PRN, if patient receiving piggyback infusions and maintenance fluids are not ordered OR KVO fluids to protect IV site / prevent frequent line interruptions/ long duration, Starting on Fri03/17/24 at 1033, For piggyback infusion, administer at same rate as piggyback for a total of 25 mL. Enter 25 mL into dose field and piggyback rate into rate field of order. If piggyback is infusing at a rate less than 100 mL/hr, enter 25 mL into dose field and 100 mL/hr into rate field of order. For KVO fluids, enter rate of 20 mL/hr or less into rate field of order. 1207 ([facility] Hold - Pro vider: Automatic Transfer Provider - Reason: Patient not available)1855 ([facility] Unhold - Provider: Automatic Discharge Provider) sodium chloride 0.9 % infusion 5-250 mL/hr, IntraVENous, PRN, if patient receiving piggyback infusions and maintenance fluids are not ordered OR KVO fluids to protect IV site / prevent frequent line interruptions/ long duration, Starting on Fri03/17/24 at 1051, Preprocedure, For piggyback infusion, administer at same rate as piggyback for a total of 25 mL. Enter 25 mL into dose field and piggyback rate into rate field of order. If piggyback is infusing at a rate less than 100 mL/hr, enter 25 mL into dose field and 100 mL/hr into rate field of order. For KVO fluids, enter rate of 20 mL/hr or less into rate field of order. 1207 ([facility] Hold - Pro vider: Automatic Transfer Provider - Reason: Patient not available)1855 ([facility] Unhold - Provider: Automatic Discharge Provider) sodium chloride 0.9% (NS) flush 10 mL 10 mL, IntraVENous, PRN, line care, Starting on Fri03/17/24 at 1033, After every IV line use 1207 ([facility] Hold - Pro vider: Automatic Transfer Provider - Reason: Patient not available)1855 ([facility] Unhold - Provider: Automatic Discharge Provider) sodium chloride 0.9% (NS) flush 10 mL 10 mL, IntraVENous, PRN, line care, Starting on Fri03/17/24 at 1051, Preprocedure, After every IV line use 1207 ([facility] Hold - Pro vider: Automatic Transfer Provider - Reason: Patient not available)1855 ([facility] Unhold - Provider: Automatic Discharge Provider) sterile water irrigation solution (CANCELED) As needed, Starting on Fri03/17/24 at 1421, Intraprocedure 1421 (Given - Provid er: Beryl Arenas MD) Linked Groups Order Group 1: oxyCODONE (Roxicodone) immediate release tablet 5 mg (COMPLETED)Jump to med 5 mg, Oral, PRN, moderate pain (4-6), Starting on Fri03/17/24 at 1512, For 1 dose, Recovery (only), PHASE II Or oxyCODONE (Roxicodone) immediate release tablet 10 mg (COMPLETED) 10 mg, Oral, PRN, severe pain (7-10), Starting on Fri03/17/24 at 1512, For 1 dose, Recovery (only), PHASE II Scheduled Medication Order 03/26/2024 03/27/2024 03/28/2024 LORazepam (Ativan) tablet 1 mg (COMPLETED) 1 mg, Oral, Once, On 03/28/24 at 0050, For 1 dose 0054 (Given - Provid er: Jennifer Short RN) oxyCODONE (Roxicodone) immediate release tablet 5 mg (COMPLETED) 5 mg, Oral, Once, On 03/28/24 at 0050, For 1 dose 53 (Given - Provid er: Jennifer Short RN) FOR RECORDS PERTAINING TO PATIENTS WHO ARE [...] BE BASED ON THE PRIMARY CLINICAL RECORDS. [facility]. provides no warranty or guarantee of the accuracy or completeness of information in this document.
[2025-06-25 02:41] VITALS: BP 128/75; PULSE 75; RESP 16; TEMP 36.6; O2SAT 100
== END 2025-06-25 02:50 | disposition home or self-care (01) ==
PROVIDERS: Emergency Provider Emergency Medicine; PCP Family Medicine; Visit Provider Emergency Medicine
DX: L08.89 Other specified local infections of the skin and subcutaneous tissue (principal); E10.9 Type 1 diabetes mellitus without complications; Z87.891 Personal history of nicotine dependence
CPT/HCPCS: 99283